=== PATIENT | male | born 1965 | race Caucasian/White ===

== ENCOUNTER 2024-07-03 11:55 | Outpatient (OUT) | payer OTHER, SELFPAY ==
--- NOTE | 2024-07-02 10:39 | V.VEINS.HP ---
Vital Signs 07/02/24 10:44 07/03/24 13:14 Height 6 ft 1 in Weight 135.171 kg BMI 39.3 BP Location Left Brachial BP Position Sitting BP Cuff Size Adult BP Source Manual Cuff Respiration 18 Pulse 64 Pulse Source Monitor Pulse Oximetry (%) 92 L Oxygen Delivery Method Room Air Varicose Veins Patient is a 58 year old male in this day as a referral from Dr. Denise at the wound clinic secondary to recurrent venous ulcers. Patient c/o numerous ulcerative areas to bilateral leg right > left leg. Patient as worn bilateral leg knee high compression stockings in the past and often resulted in new wound formation. Patient c/o bilateral leg edema for many years. Patient has not had varicose vein treatments in the past. Patient denies blood clot history as well. IGood MD personally performed the services described in this documentation, as scribed by Myron Mina RN in my presence and it is both accurate and complete. IMyron RN, am scribing for, and in the presence of, Dr. Good Robbins and in the presence of the patient. thigh: bilateral (right > left leg), knee: bilateral, calf: bilateral, ankle: bilateral and martinez: bilateral Reports heaviness, edema and leg edema History of lower extremity trauma: No Superficial thrombophlebitis: No Family history of varicose veins: no Has patient had previous lower extremity venous surgery: No Patient has previously received the following treatment(s) for lower extremity varicose veins: Reports none Does patient have a history of : not applicable Does patient intend to have future pregnancies: not applicable Has patient had lower extremity venous scan with relux testing: No Support hose used: Yes Problems walking or doing physical activity: Yes How does it affect you: often has to stop and rest with ambulation Do you walk much: No Do you stand much: No Review of Systems ROS Status of ROS 10 or more systems reviewed and unremarkable except as noted in history and below Cardiovascular Reports: edema Integumentary/Breast Reports: itching, redness, skin pain, skin tenderness, skin swelling, new lesion, changing lesion, non-healing lesion and changes in skin color Neurological Reports: numbness in extremities and weakness in extremities PFSH [facility] Medical History (Updated 07/03/24 @ 13:36 by Myron Mina) Hernia ?K46.9 - Unspecified abdominal hernia without obstruction or gangrene (ICD-10) Heart attack ?I21.9 - Acute myocardial infarction, unspecified (ICD-10) Bilateral leg edema ?R60.0 - Localized edema (ICD-10) Pain due to varicose veins of both lower extremities ?I83.813 - Varicose veins of bilateral lower extremities with pain (ICD-10) COPD (chronic obstructive pulmonary disease) ?J44.9 - Chronic obstructive pulmonary disease, unspecified (ICD-10) Advanced cardiac disease ?I51.9 - Heart disease, unspecified (ICD-10) CHF (congestive heart failure) ?I50.9 - Heart failure, unspecified (ICD-10) Ulcerated leg varices ?I83.009 - Varicose veins of unspecified lower extremity with ulcer of unspecified site (ICD-10) ?L97.909 - Non-pressure chronic ulcer of unspecified part of unspecified lower leg with unspecified severity (ICD-10) Neuropathy ?G62.9 - Polyneuropathy, unspecified (ICD-10) Diabetes ?E11.9 - Type 2 diabetes mellitus without complications (ICD-10) Surgical History (Updated 07/03/24 @ 13:36 by Myron Mina) H/O gastric sleeve ?Z90.3 - Acquired absence of stomach [part of] (ICD-10) H/O hernia repair ?Z98.890 - Other specified postprocedural states (ICD-10) ?Z87.19 - Personal history of other diseases of the digestive system (ICD-10) Family History (Updated 07/02/24 @ 10:43 by Myron Mina) Other Family history of cancer Heart disease Hypothyroid Social History (Updated 07/03/24 @ 13:38 by Myron Mina) Within the past year, how often did you have a drink containing alcohol: monthly or less Smoking status: Former smoker Non-prescribed substance use: denies use Meds Home Medications and Allergies Home Medications ?Medication ?Instructions ?Recorded ?Confirmed ?Type apixaban 5 mg tablet (Eliquis) 5 mg PO Q12H 07/03/24 07/03/24 History budesonide-formoterol HFA 80 1 inh inhalation BID 07/03/24 07/03/24 History mcg-4.5 mcg/actuation aerosol inhaler (Symbicort) dapagliflozin propanediol 10 mg 10 mg PO DAILY 07/03/24 07/03/24 History tablet (Farxiga) furosemide 20 mg tablet 20 mg PO DAILY 07/03/24 07/03/24 History glimepiride 4 mg tablet 4 mg PO BID 07/03/24 07/03/24 History metoprolol tartrate 25 mg tablet 25 mg PO Q12H 07/03/24 07/03/24 History ranolazine 1,000 mg 1,000 mg PO BID 07/03/24 07/03/24 History tablet,extended release,12 hr Allergies Allergy/AdvReac Type Severity Reaction Status Date / Time hydromorphone (From Dilaudid) Allergy Intermediate Difficulty Verified 07/03/24 15:09 Breathing Exam Narrative Exam Narrative: Multiple open wounds noted to right lower leg #1 right mid anterolateral lower [id number] #2 right anteromedial ankle [id number] #3 right distal lateral lower leg [id number] Good Willson MD personally performed the services described in this documentation, as scribed by Myron Mina RN in my presence and it is both accurate and complete. Myron Willson RN, am scribing for, and in the presence of, Dr. Good Robbins and in the presence of the patient. Constitutional Documenting provider has reviewed patient's vital signs: yes Common normals: oriented x3 Nutritional appearance: overweight Cardio Peripheral pulses: posterior tibial pulses present and dorsalis pedis pulses present Extremity Common normals: normal capillary refill General: calf tenderness and edema Right lower extremity: lower leg Right lower leg: inspection and palpation Left lower extremity: lower leg Left lower leg: inspection and palpation Neuro Common normals: oriented x3 Results Additional Findings Additional findings: Bilateral leg reflux u/s reveals moderate right GSV and mild left GSV along with bilateral SSV insufficiency with associated dilation, bilateral leg perforating veins, and lastly bilateral leg branch saphenous varicosities Good Willson MD personally performed the services described in this documentation, as scribed by Myron Mina RN in my presence and it is both accurate and complete. Myron Willson RN, am scribing for, and in the presence of, Dr. Good Robbins and in the presence of the patient. Assessment and Plan Assessment and Plan (1) Pain due to varicose veins of both lower extremities: Plan Continue use of bilateral leg knee high compression stockings, unless interferes with wounds. Continue rest and elevation of bilateral feet/legs to decrease edema. Patient to return for EVLT of right GSV IGood MD personally performed the services described in this documentation, as scribed by Myron Mina RN in my presence and it is both accurate and complete. Myron Willson RN, am scribing for, and in the presence of, Dr. Good Robbins and in the presence of the patient.
[2024-07-02 10:44] VITALS: BMI 39.3
--- NOTE | 2024-07-02 10:45 | P.DS_ITS ---
Discharge Plan Discharge Disposition: Home, Self-Care Outpatient Diagnostics: VC Endovenous Ablation 1VeinRT (Routine) Timeframe: 2 Months Facility: [facility] - Location: Vein Center Ordered By: Good Robbins Plan of Treatment: EVLT of right GSV Print Language: Ukrainian Discharge Date/Time: 07/03/24 15:42
--- NOTE | 2024-07-03 13:01 | VEIN_ITS ---
Patient Name: SILVIO CROWELL MR#: [id number] : 1965 Exam Date: 07/03/2024 Ordering Doctor: DR BALWINDER LYON M.D. RADIOLOGY REPORT PROCEDURE: VEIN CENTER COMPREHENSIVE CONSULTATION VEIN CENTER - OFFICE VISIT INITIAL COMPARISON: None. PROGRESS NOTES: 58-year-old male who presents with a 20 year history of lower extremity pain swelling and waxing and waning venous stasis ulcerations. The patient was 1st treated [address] Dr. Cooper in [place] 20 years ago for infected venous stasis ulceration with 6 weeks of IV antibiotics. The patient has had ongoing venous stasis ulcerations in the past 20 years. The patient is currently being seen for multiple right leg venous stasis ulcerations by the [facility]. The patient does not exercise and has a sedentary lifestyle secondary to his leg condition. The patient denies any signs and symptoms to suggest arterial ischemia. The patient describes a family history significant for cancer heart disease and hypothyroidism. Past medical history significant for abdominal hernia, heart attack, leg edema, varicose veins, COPD, cardiac disease, CHF, neuropathy and diabetes. Past surgical history significant for gastric sleeve with 100 pound weight loss in hernia repair. The patient drinks alcohol monthly. The patient discontinued smoking years ago. No illicit drug use See separate history and physical for medication list. No prior treatment for varicose or spider veins. The patient has intermittently worn compression stockings for years. After review of nurse notes, history and physical exam I discussed at length the pathophysiology of venous hypertension and possible treatments, therapies and strategies available. We discussed at length the importance of elevating the lower extremities above the level of the heart, increased physical activity and compression stocking use. We discussed intravenous laser ablation, micro foam chemical ablation and injection sclerotherapy at length. Risks benefits and alternatives were discussed with the patient and his . The patient's questions were answered. Ultrasound venous reflux study performed the same day was discussed at length with the patient. The report demonstrates moderate right great saphenous vein venous insufficiency mild left great and bilateral small saphenous vein venous insufficiency. Incompetent right leg perforating veins with associated wound . bilateral incompetent varicose veins. PVR demonstrates normal waveforms with bilateral borderline elevated CAMELIA suggesting calcified atherosclerosis PHYSICAL EXAM: The right leg demonstrates multiple skin ulcerations the 2 largest measuring 6 x 4 cm and 12 x 8 cm along the anterior and lateral right lower leg. Moderate diffuse below knee subcutaneous edema. Moderate varicose reticular and spider veins. Skin thickening and hemosiderin staining. The left leg demonstrates moderate below knee subcutaneous edema. Moderate varicose, reticular and spider veins. Skin thickening and hemosiderin staining. No active ulceration Both thighs, legs and feet were symmetrically warm to the touch. Good posterior tibial and dorsalis pedis pulses were present bilaterally. VEIN/VC Facility EST Comprehensive IMPRESSION: 1. Bilateral great saphenous and small saphenous vein venous insufficiency with dilatation and saphenofemoral/saphenopopliteal junction reflux 2. Bilateral lower extremity varicose veins 3. Moderate bilateral lower extremity subcutaneous edema with hemosiderin staining and multiple right leg ulceration 4. Diffuse calcific atherosclerosis suggested by PVR without definite flow significant arterial disease 5. CEAP: C6, Ep, Asp, Pr PLAN: 1. Endovenous laser ablation of the right great saphenous vein followed by right small saphenous vein followed by left great saphenous vein followed by left small saphenous vein followed by right perforating veins if necessary 2. Micro foam chemical ablation bilateral incompetent varicose veins 3. Long-term use of bilateral knee or thigh-high 20-30 mm compression stockings 4. Elevated legs and increased physical activity for symptomatic relief Nurse notes, history and physical were reviewed and confirmed, see attached forms. The nurse was present throughout the physical exam and consultation Dictated by: Balwinder Lyon MD on 07/03/2024 at 15:48 Approved by: Balwinder Lyon MD on 07/03/2024 at 15:55
--- NOTE | 2024-07-03 13:02 | VEIN_ITS ---
[facility] [place] [id number] Patient Name: SILVIO CROWELL MRN: [id number] date: 1965 Sex: M Assigned Patient Location: Current Patient Location: Accession/Order Number: [id number] Exam Date: 07/03/2024 13:01 Report Date: 07/03/2024 15:11 At the request of: BALWINDER LYON Procedure: VC SEGMENTAL PRESSURES EXAM: VC SEGMENTAL PRESSURES HISTORY: I73.9 COMPARISON: None. FINDINGS: Segmental pressures presented as follows (right, left) in mmHg. Brachial: 141, 153 Lower thigh: 190, 183 Calf: 179, 178 DPA: 202, 190 TOBACCO SPRAYER: 166, 197 1st Toe: 168, 167 CAMELIA: 1.32, 1.29 TBI: 1.1, 1.09 The ABIs are high The TBI's are Acceptable PVR waveforms: Right leg: Thigh: Normal Above knee: Normal Below knee: Normal Right ankle: Normal Left leg: Thigh: Normal Above knee: Normal Below knee: Normal Right ankle: Normal VEIN/VC SEGMENTAL PRESSURES IMPRESSION: ABIs are borderline high suggesting calcified atherosclerosis Electronically authenticated by: BALWINDER LYON Date: 07/03/2024 15:11
--- NOTE | 2024-07-03 13:02 | VEIN_ITS ---
Patient Name: SILVIO CROWELL MR#: [id number] : 1965 Exam Date: 07/03/2024 Ordering Doctor: DR GOOD ROBBINS M.D. RADIOLOGY REPORT PROCEDURE: VC EXT VENOUS REFLUX MAREK LMTD COMPARISON: None. INDICATIONS: I83.813 Bilateral painful varicose veins TECHNIQUE: Duplex imaging of the lower extremity to assess the deep and superficial venous system for the presence of deep or superficial venous incompetence and to document the location and severity of disease. The study includes evaluation of the great saphenous vein (GSV), anterior accessory saphenous vein (AASV) and small saphenous vein (SSV). Patient scanned in reverse Trendelenburg and standing. FINDINGS: RIGHT LOWER EXTREMITY: Saphenofemoral Junction Reflux: Yes 8.5mm 2.5 sec GSV: Diam (mm) Reflux/ Time (sec) Proximal Thigh 6.7 Yes 2.8 Mid Thigh 6.0 Yes 1.4 Distal Thigh 2.4 No Prox Calf 2.1 Yes 1.4 Mid Calf 1.4 No Saphenopopliteal Junction Reflux: 6.2mm Yes 0.9 SSV: Proximal Calf 4.9 No Mid Calf 4.8 Yes 1.5 AASV: Proximal Thigh 2.9 No Mid Thigh No Distal Thigh Thrombi: No acute or chronic thrombus visualized Compressibility: Normal Flow: Normal Preforator: Dist/med calf 4.1mm with 1.5s reflux. Mid/med calf 4.5mm with 1.7s reflux. Mid/lat calf near wound 4.5mm with 1.2s reflux. Tech Note: Incompetent GSV. Patent varicose vein mid/med calf 4.0mm with 1.6s reflux. Patent varicose vein medial knee 4.7mm with 0.7s reflux. Patent varicose vein dist/med thigh 4.8mm with 1.1s reflux. LEFT LOWER EXTREMITY: Saphenofemoral Junction Reflux: Yes 5.6 mm 0.9 sec GSV: Diam (mm) Reflux/Time (sec) Proximal Thigh 6.1 Yes 0.8 Mid Thigh 3.4 No Distal Thigh 3.1 No Prox Calf 2.7 No Mid Calf 2.0 No Saphenopopliteal Junction Relux: 5.9 mm Yes 1.2 SSV: Proximal Calf 5.5 Yes 0.8 Mid Calf 3.2 No AASV: Not present Thrombi: No acute or chronic thrombus visualized Compressibility: Normal Flow: Normal Warehouse Supervisor: Dist/med calf 2.9mm with 0s reflux. Patent varicose vein 2.2mm with 1.3s reflux. Tech Note: Incompetent GSV and SSV. Patent varicose vein dist/med thigh 3.9mm with 1.2s reflux. Patent varicose vein medial knee 5.3mm with 0.7s reflux. CONCLUSION: 1. Moderate right great saphenous vein insufficiency with dilation and saphenofemoral junction reflux 2. Mild left great and bilateral small saphenous vein reflux 3. Bilateral incompetent varicose veins Dictated by: Good Robbins MD on 07/03/2024 at 15:02 Approved by: Good Robbins MD on 07/03/2024 at 15:07
[2024-07-03 13:14] VITALS: PULSE 64; O2SAT 92
== END 2024-07-03 15:42 | disposition home or self-care (01) ==
PROVIDERS: Visit Provider Radiology Diagnostic Radiology
DX: I83.813 Varicose veins of bilateral lower extremities with pain (principal); I73.9 Peripheral vascular disease, unspecified
CPT/HCPCS: 93923; 93970; G0463

== ENCOUNTER 2024-07-17 12:51 | Outpatient (OUT) | payer OTHER, SELFPAY ==
--- NOTE | 2024-07-16 14:04 | V.VEINS.HP ---
Vital Signs 07/17/24 13:09 BP 147/77 H BP Location Left Brachial BP Position Sitting BP Cuff Size Large Adult BP Source Automatic Cuff Respiration 20 Pulse 68 Pulse Source Monitor Pulse Oximetry (%) 95 Oxygen Delivery Method Room Air Comment The patient's blood pressure is elevated. Varicose Veins Patient in this day for EVLT of right GSV. Jone Willson MD personally performed the services described in this documentation, as scribed by Myron Mina RN in my presence and it is both accurate and complete. Myron Willson RN, am scribing for, and in the presence of, Dr. Jone Vallejo and in the presence of the patient. thigh: bilateral (right > left leg), knee: bilateral, calf: bilateral, ankle: bilateral and martinez: bilateral Reports heaviness, edema and leg edema History of lower extremity trauma: No Superficial thrombophlebitis: No Family history of varicose veins: no Has patient had previous lower extremity venous surgery: No Patient has previously received the following treatment(s) for lower extremity varicose veins: Reports none Does patient have a history of : not applicable Does patient intend to have future pregnancies: not applicable Has patient had lower extremity venous scan with relux testing: No Support hose used: Yes Problems walking or doing physical activity: Yes How does it affect you: often has to stop and rest with ambulation Do you walk much: No Do you stand much: No Review of Systems ROS Narrative Jone Willson MD personally performed the services described in this documentation, as scribed by Myron Mina RN in my presence and it is both accurate and complete. Myron Willson RN, am scribing for, and in the presence of, Dr. Jone Vallejo and in the presence of the patient. Status of ROS 10 or more systems reviewed and unremarkable except as noted in history and below Cardiovascular Reports: edema Integumentary/Breast Reports: itching, redness, skin pain, skin tenderness, skin swelling, new lesion, changing lesion, non-healing lesion and changes in skin color Neurological Reports: numbness in extremities and weakness in extremities [facility] Medical History (Updated 07/03/24 @ 13:36 by Myron Mina) Hernia ?K46.9 - Unspecified abdominal hernia without obstruction or gangrene (ICD-10) Heart attack ?I21.9 - Acute myocardial infarction, unspecified (ICD-10) Bilateral leg edema ?R60.0 - Localized edema (ICD-10) Pain due to varicose veins of both lower extremities ?I83.813 - Varicose veins of bilateral lower extremities with pain (ICD-10) COPD (chronic obstructive pulmonary disease) ?J44.9 - Chronic obstructive pulmonary disease, unspecified (ICD-10) Advanced cardiac disease ?I51.9 - Heart disease, unspecified (ICD-10) CHF (congestive heart failure) ?I50.9 - Heart failure, unspecified (ICD-10) Ulcerated leg varices ?I83.009 - Varicose veins of unspecified lower extremity with ulcer of unspecified site (ICD-10) ?L97.909 - Non-pressure chronic ulcer of unspecified part of unspecified lower leg with unspecified severity (ICD-10) Neuropathy ?G62.9 - Polyneuropathy, unspecified (ICD-10) Diabetes ?E11.9 - Type 2 diabetes mellitus without complications (ICD-10) Surgical History (Updated 07/17/24 @ 13:58 by Myron Mina) Status post laser ablation of incompetent vein ?Z98.890 - Other specified postprocedural states (ICD-10) H/O gastric sleeve ?Z90.3 - Acquired absence of stomach [part of] (ICD-10) H/O hernia repair ?Z98.890 - Other specified postprocedural states (ICD-10) ?Z87.19 - Personal history of other diseases of the digestive system (ICD-10) Family History (Updated 07/02/24 @ 10:43 by Myron Mina) Other Family history of cancer Heart disease Hypothyroid Social History (Updated 07/03/24 @ 13:38 by Myron Mina) Within the past year, how often did you have a drink containing alcohol: monthly or less Smoking status: Former smoker Non-prescribed substance use: denies use Meds Home Medications and Allergies Home Medications ?Medication ?Instructions ?Recorded ?Confirmed ?Type apixaban 5 mg tablet (Eliquis) 5 mg PO Q12H 07/03/24 07/03/24 History budesonide-formoterol HFA 80 1 inh inhalation BID 07/03/24 07/03/24 History mcg-4.5 mcg/actuation aerosol inhaler (Symbicort) dapagliflozin propanediol 10 mg 10 mg PO DAILY 07/03/24 07/03/24 History tablet (Farxiga) furosemide 20 mg tablet 20 mg PO DAILY 07/03/24 07/03/24 History glimepiride 4 mg tablet 4 mg PO BID 07/03/24 07/03/24 History metoprolol tartrate 25 mg tablet 25 mg PO Q12H 07/03/24 07/03/24 History ranolazine 1,000 mg 1,000 mg PO BID 07/03/24 07/03/24 History tablet,extended release,12 hr Allergies Allergy/AdvReac Type Severity Reaction Status Date / Time hydromorphone (From Dilaudid) Allergy Intermediate Difficulty Verified 07/03/24 15:09 Breathing Exam Narrative Exam Narrative: IJone MD personally performed the services described in this documentation, as scribed by Myron Mina RN in my presence and it is both accurate and complete. IMyron RN, am scribing for, and in the presence of, Dr. Jone Vallejo and in the presence of the patient. Constitutional Documenting provider has reviewed patient's vital signs: yes Common normals: oriented x3 Nutritional appearance: overweight Cardio Peripheral pulses: posterior tibial pulses present and dorsalis pedis pulses present Extremity Common normals: normal capillary refill General: calf tenderness and edema Right lower extremity: lower leg Right lower leg: inspection and palpation Left lower extremity: lower leg Left lower leg: inspection and palpation Neuro Common normals: oriented x3 Results Additional Findings Additional findings: Plan of care: Risks and benefits of the procedure were discussed at length and informed written consent was obtained.? Time-out completed for verification of correct patient, procedure and site.? Staff present during time-out: Myron Mina RN,? Good Robbins MD, Samira Mcguire RDMS,RVT. Time Out Time Patient prepped and procedure performed in usual sterile fashion. Risk of injury related to use of Diode laser and/or laser devices? __CR___ ? Serial number of laser used :? [id number] Control panel self test performed, electrical cords in good condition, floor is dry, basin of water available, fire extinguisher in close proximity_CR__ Polycarbonate goggles available and Laser warning signs outside of doors___CR__ Eye protection provided to patient and staff in room_CR___ Use of laser retardant drapes and dull blackened instruments as directed__CR___ Use of nonflammable prep solutions and use of saline soaked sponges to protect tissues as indicated _CR___ Length cm Laser operated by _Dr. Vallejo Physician verbal confirmation laser locked in place__CR__ Laser start time (date and time) _07/16/2024@ Laser stop time(date and time) __07/16/2024@ Panda _8.0___ Average laser use Joules Average laser use seconds Pulse continuous ___CR_? Pulse intermittent ___ Amount of Tumescent used Evaluated patient for signs and symptoms of electrical injury __CR___ ? Skin clear at insertion site __CR___ Patient tolerated procedure well.? Left leg Coban dressing applied to access site.? Applied Left thigh high leg compression stocking. Will return on // for Left leg limited venous ultrasound and exam. Jone Willson MD personally performed the services described in this documentation, as scribed by Myron Mina RN in my presence and it is both accurate and complete. Myron Willson RN, am scribing for, and in the presence of, Dr. Jone Vallejo and in the presence of the patient. Assessment and Plan Assessment and Plan (1) Pain due to varicose veins of both lower extremities: Plan f/u evaluation with physician along with right leg limited u/s Jone Willson MD personally performed the services described in this documentation, as scribed by Myron Mina RN in my presence and it is both accurate and complete. Myron Willson RN, am scribing for, and in the presence of, Dr. Jone Vallejo and in the presence of the patient. Procedures Procedure Instructions Procedures Plan of care: Risks and benefits of the procedure were discussed at length and informed written consent was obtained.? Time-out completed for verification of correct patient, procedure and site.? Staff present during time-out: Myron Mina RN,? [facility] MD, [facility], [facility]. Time Out Time___1343____ Patient prepped and procedure performed in usual sterile fashion. Risk of injury related to use of Diode laser and/or laser devices__CR___ ? Serial number of laser used :? [id number] Control panel self test performed, electrical cords in good condition, floor is dry, basin of water available, fire extinguisher in close proximity_CR__ Polycarbonate goggles available and Laser warning signs outside of doors___CR__ Eye protection provided to patient and staff in room_CR___ Use of laser retardant drapes and dull blackened instruments as directed__CR___ Use of nonflammable prep solutions and use of saline soaked sponges to protect tissues as indicated _CR___ Length __47 cm Laser operated by __Dr. Vallejo Physician verbal confirmation laser locked in place__CR__ Laser start time (date and time) __07/17/2024@__1356____ Laser stop time(date and time) __07/17/2024@__1401 Panda _8.0___ Average laser use ___2357____Joules Average laser use____295____seconds Pulse continuous ___CR_? Pulse intermittent ___ Amount of Tumescent used __200cc____ Evaluated patient for signs and symptoms of electrical injury __CR___ ? Skin clear at insertion site __CR___ Patient tolerated procedure well.? Right leg Coban dressing applied to access site.? Applied right thigh high leg compression stocking. Will return on 06/23/2024 for right leg limited venous ultrasound and exam. I, Jone Vallejo MD personally performed the services described in this documentation, as scribed by Myron Mina RN in my presence and it is both accurate and complete. I, Myron Mina RN, am scribing for, and in the presence of, Dr. Jone Vallejo and in the presence of the patient.
--- NOTE | 2024-07-16 14:14 | W.VEIN ---
Discharge Plan Discharge Disposition: Home, Self-Care Outpatient Diagnostics: VC Facility EST LMTD (Routine) Timeframe: 2 Weeks Facility: [facility] - Location: Vein Center Ordered By: Good Robbins VC EXT Venous RT LMTD (Routine) Timeframe: 2 Weeks Facility: [facility] - Location: Vein Center Ordered By: Good Robbins Follow Up Appointments: 07/24/2024 Plan of Treatment: f/u evaluation with physician along with right leg limited u/s Patient Instructions: Endovenous Ablation (DC) Print Language: [place] Discharge Date/Time: 07/17/24 13:45
[2024-07-17] MEDS: LIDOCAINE HCL 1% 100 MG/10 ML MDV INJ (12:52)
[2024-07-17] MEDS: 0.9 % SODIUM CHLORIDE 500 ML, LIDOCAINE HCL 20 ML, SODIUM BICARBONATE 10 MEQ INJ (12:53)
--- NOTE | 2024-07-17 13:01 | VEIN_ITS ---
[address] [address] Patient Name: SILVIO CROWELL MRN: [id number] date: 1965 Sex: M Assigned Patient Location: Current Patient Location: Accession/Order Number: [id number] Exam Date: 07/17/2024 13:07 Report Date: 07/17/2024 14:35 At the request of: BALWINDER LYON Procedure: VC Endovenous Ablation 1VeinRT EXAMINATION: VC Endovenous Ablation 1VeinRT HISTORY: I83.813 - Varicose veins of bilateral lower extremities w... The risks and benefits of the procedure had been previously discussed, and were rediscussed at length. Informed written consent was obtained. Myron Mina RN and Samira Mcguire RDMS, RVT assisted. Time out procedure was performed. The right lower extremity was prepared and draped in the usual sterile fashion to allow knee flexion in the sterile field. Duplex ultrasound probe was draped in a sterile cover, sterile transmission gel was used. Venous mapping was performed with the areas of dilation and large tributaries marked. The total length was 47 cm from the entry mid calf to 3 cm below the Saphenofemoral junction. The diameter of the right great saphenous vein ranged from 6.7 mm. A 30 gauge needle and 1% buffered lidocaine was used to anesthetize the entry site. A 4 mm incision was made with a scalpel and the saphenous vein was entered percutaneously under direct ultrasound guidance with a micropuncture set, a single stick was successful in gaining access. A micro-guide wire was inserted and the needle removed. A micro-set including a dilator was inserted over the microwire and the needle and dilator were removed. A guide wire was inserted through the micro-set and guided through the saphenous vein to the saphenofemoral junction. The dilator was removed and an introducer sheath was inserted over the wire until the end of the sheath entered the saphenofemoral junction. The dilator and wire were removed and the 600 micron fiber was introduced and placed and positioned so that it extended beyond the sheath and was 3 cm distal to the saphenofemoral or saphenopopliteal junction. Final position of the fiber was determined by ultrasound guidance and duplex imaging. Tumescent anesthetic was delivered by ultrasound guidance. 200 cc of fluid was delivered along the entire course of the saphenous vein. The solution consisted of 1000 cc of normal saline with 40 mL of 1% lidocaine and 20 mL of sodium bicarbonate. A final positioning check was made. The energy source was turned on by means of the foot pedal and the fiber and sheath were withdrawn. The total number of Joules delivered was 2357. The laser was active for 295 seconds under continuous pulse, average laser use of 8 J. Laser start time: 1:56 PM Laser stop time: 2:01 PM Date: 07/17/2024. A duplex ultrasound revealed compressibility and flow at the saphenofemoral junction immediately after the procedure. Hemostasis at the access site was achieved. The skin incision of the saphenous vein was closed with a 4 x 4. A compression stocking was applied. Postop instructions were given. A follow up appointment was recommended and scheduled. The patient tolerated the procedure well. Electronically authenticated by: RUPA BINGHAM Date: 07/17/2024 14:35
[2024-07-17 13:09] VITALS: BP 147/77; PULSE 68; O2SAT 95
--- OUTSIDE RECORDS SUMMARY | 2024-07-17 13:10 | XMS_ITS | CCD ---
Author Organization [facility] Care Team Providers Care Art Sales Consultant Name Role Phone RORY ZEPEDA Unavailable Unavailable BALWINDER MILLER Unavailable Unavailable GRETA GONZALEZ Referring Unavailab le BALWINDER MILLER Primary Care Unavailable Balwinder Miller Primary Care Provider Dominick Chavira Attending Unavailable Dominick Chavira Admitting Unavailable Balwinder Miller Primary Care Unavailable Dolce, Morgan R Admitting Unavailable Dolce, Morgan R Attending Unavailable Balwinder Miller Primary Care Unavailable Balwinder Miller Primary Care Unavailable Balwinder Miller Attending Unavailable Dominick Chavira Attending Unavailable Dominick Chavira Admitting Unavailable PaulBalwinder cowan Primary Care Unavailable Dolce, Morgan R Admitting Unavailable Dolce, Morgan R Attending Unavailable Balwinder Miller Primary Care Unavailable Dolce, Morgan R Admitting Unavailable Dolce, Morgan R Attending Unavailable Balwinder Miller Primary Care Unavailable Dominick Chavira Attending Unavailable Dominick Chavira Admitting Unavailable Balwinder Miller Primary Care Unavailable GonMaria L lomeli Attending Unavailable Maria L Hand Admitting Unavailable PaulBalwinder cowan Primary Care Unavailable Balwinder Miller Attending Unavailable Balwinder Miller Primary Care Unavailable Balwinder Miller Attending Unavailable Balwinder Miller Primary Care Unavailable Balwinder Miller Attending Unavailable Balwinder Miller Primary Care Unavailable Balwinder Miller Attending Unavailable Balwinder Miller Primary Care Unavailable Balwinder Miller Admitting Unavailable PaulBalwinder cowan Attending Unavailable Balwinder Miller Primary Care Unavailable Balwinder Miller Primary Care Unavailable Kimberly Jones Attending Unavailable Kimberly Jones Admitting Unavailable Balwinder Miller Primary Care Unavailable Ian Lynn Attending UnavailIan Ignacio Admitting Unavaila Morgan Cooper Attending Unavailable Morgan Denise Admitting Unavailable Balwinder Miller Primary Care Unavailable Morgan Denise Attending Unavailable Morgan Denise Admitting Unavailable Balwinder Miller Primary Care Unavailable Allergies Allergy Classification Reported Allergen(s) Allergy Type Date of Onset Reaction(s) Facility (2 sources) NSAIDs Propensity to adverse reactions to drug 9 [employer] Phone: (1 source) HYDROmorphone; Translations: [Dilaudid] Drug Allergy [facility] Repository Medications Current Medications Medication Drug Class(es) Dates Sig (Normalized) Sig (Original) 200 actuat albuterol 0.09 mg/actuat metered dose inhaler (2 sources) beta2-Adrenergic Agonist take 2 puff(s) by inhalation every four hours as needed for wheezing albuterol sulfate HFA 108 (90 Base) MCG/ACT inhaler Inhale 2 puffs into the lungs every 4 hours as needed for Wheezing 0 Active amiodarone hydrochloride 200 mg oral tablet (2 sources) Antiarrhythmic take 1 tablet by mouth once daily amiodarone (CORDARONE) 200 MG tablet Take 200 mg by mouth daily 0 Active atorvastatin 40 mg oral tablet (2 sources) HMG-CoA Reductase Inhibitor Start: 12-27-2017 take 1 tablet by mouth once daily atorvastatin (LIPITOR) 40 MG tablet Take 1 tablet by mouth daily 30 tablet 3 12/27/2017 Active 60 actuat budesonide 0.08 mg/actuat / formoterol fumarate 0.0045 mg/actuat metered dose inhaler (2 sources) Corticosteroid, beta2-Adrenergic Agonist Start: 12-19-2017 take 2 puff(s) by inhalation twice daily budesonide-formote rol (SYMBICORT) 80-4.5 MCG/ACT AERO Indications: Chronic obstructive pulmonary disease, unspecified COPD type (HCC) Inhale 2 puffs into the lungs 2 times daily 1 Inhaler 3 12/19/2017 Active clopidogrel 75 mg oral tablet (2 sources) P2Y12 Platelet Inhibitor Start: 12-28-2017 take 1 tablet by mouth once daily clopidogrel (PLAVIX) 75 MG tablet Take 1 tablet by mouth daily 30 tablet 3 12/28/2017 Active Docusate Sodium (COLACE PO) (2 sources) Docusate Sodium (COLACE PO) Take 100 mg by mouth 0 Active furosemide 20 mg oral tablet (2 sources) Loop Diuretic take 1 tablet by mouth once daily furosemide (LASIX) 20 MG tablet Take 20 mg by mouth daily 0 Active glucose monitoring kit (FREESTYLE) monitoring kit (2 sources) Start: 11-22-2017 glucose monitoring kit (FREESTYLE) monitoring kit Indications: Type 2 diabetes mellitus without complication, unspecified bow repairer custom insulin use status 1 kit by Does not apply route daily as needed (check glucose before meals three times a day) 1 kit 0 11/22/2017 Active metFORMIN hydrochloride 500 mg oral tablet (2 sources) Biguanide take 500 mg by mouth twice daily METFORMIN HCL PO Take 500 mg by mouth 2 times daily 0 Active metoprolol tartrate 25 mg oral tablet (2 sources) beta-Adrenergic Kwaku metoprolol tartrate (LOPRESSOR) 25 MG tablet Take 12.5 mg by mouth 2 times daily 0 Active midodrine hydrochloride 5 mg oral tablet (2 sources) alpha-Adrenergic Agonist take 1 tablet by mouth three times daily midodrine (PROAMATINE) 5 MG tablet Take 5 mg by mouth 3 times daily 0 Active nitroglycerin 0.4 mg sublingual tablet (2 sources) Nitrate Vasodilator Start: 12-27-2017 nitroGLYCERIN (NITROSTAT) 0.[address] 1 tablet under the tongue every 5 minutes as needed for Chest pain up to max of 3 total doses. If no relief after 1 dose, call 911. 25 tablet 3 12/27/2017 Active NONFORMULARY (2 sources) NONFORMULARY B 1 2 shot 2 weeks ago today 09-20-18 0 Active Pediatric Sqjfcnkq-Oklpcubr-J (FLINTSTONES COMPLETE PO) (2 sources) Pediatric Multivit-Minerals- C (FLINTSTONES COMPLETE PO) Take by mouth 0 Active [place]-Aom-Qh-FA ( VITAMINS PO) (2 sources) take 1 tablet by mouth once daily Jemhsgkn-Ctm-Yg-FA ( VITAMINS PO) Take 1 tablet by mouth daily 0 Active rivaroxaban 20 mg oral tablet (2 sources) Factor Xa Inhibitor Start: 11-21-2017 take 1 tablet by mouth once daily rivaroxaban (XARELTO) 20 MG TABS tablet Take 1 tablet by mouth daily 30 tablet 0 11/21/2017 Active 7 actuat umeclidinium 0.0625 mg/actuat dry powder inhaler (2 sources) Anticholinergic Start: 12-20-2017 take 1 dose by inhalation once daily Umeclidinium [place] (INCRUSE ELLIPTA) 62.5 MCG/INH AEPB Indications: Chronic obstructive pulmonary disease, unspecified COPD type (HCC) Inhale 1 Inhaler into the lungs daily 1 each 3 12/20/2017 Active Completed/Discontinued Medications Medication Drug Class(es) Dates Sig (Normalized) Sig (Original) gadoteridol (PROHANCE) injection 20 mL (1 source) Start: 11-21-2020 End: 11-21-2020 gadoteridol (PROHANCE) injection 20 mL Problems Active Problems Problem Classification Problem Date Documented Date Episodic/Chronic Acute and unspecified renal failure (2 sources) Acute injury of kidney; Translations: [BRYCE (acute kidney injury)] Onset: 11-13-2017 11-13-2017 Cardiac dysrhythmias (1 source) Chronic atrial fibrillation; Translations: [Chronic atrial fibrillation] Onset: 04-15-2018 Chronic Chronic obstructive pulmonary disease and bronchiectasis (2 sources) Chronic obstructive lung disease; Translations: [COPD (chronic obstructive pulmonary disease)] Onset: 11-13-2017 11-13-2017 Chronic Conduction disorders (4 sources) H/O: cardiac pacemaker in situ; Translations: [S/P placement of cardiac pacemaker] Onset: 01-18-2019 01-18-2019 Chronic Coronary atherosclerosis and other heart disease (1 source) Atherosclerotic heart disease of [place] coronary artery without angina pectoris; Translations: [Atherosclerotic heart disease of [place] coronary artery without angina pectoris] Onset: 04-15-2018 Chronic Diabetes mellitus without complication (2 sources) Type 2 diabetes mellitus; Translations: [Type 2 diabetes mellitus] Onset: 11-13-2017 11-13-2017 Chronic Nutritional deficiencies (2 sources) Vitamin D deficiency; Translations: [Vitamin D deficiency] Onset: 11-14-2017 11-14-2017 Chronic Other nervous system disorders (1 source) Tremor; Translations: [Tremor] Episodic Other nutritional; endocrine; and metabolic disorders (4 sources) Morbid obesity; Translations: [Morbid obesity due to excess calories] Onset: 11-14-2017 11-19-2017 Chronic Residual codes; unclassified (2 sources) Obstructive sleep apnea syndrome; Translations: [HAFSA (obstructive sleep apnea)] 11-16-2017 Chronic Respiratory failure; insufficiency; arrest (adult) (4 sources) Acute on chronic hypercapnic respiratory failure; Translations: [Acute on chronic hypoxemic and hypercapnic respiratory failure] Onset: 11-14-2017 11-19-2017 Past or Other Problems Problem Classification Problem Date Documented Da te Episodic/Chronic Coronary atherosclerosis and other heart disease (2 sources) History of placement of stent for coronary artery disease; Translations: [S/P drug eluting coronary stent placement] Onset: 12-26-2017 12-26-2017 Episodic Influenza (2 sources) Influenza due to Influenza virus, type B; Translations: [Influenza B] Onset: 11-13-2017 Resolved: 11-19-2017 11-19-2017 Episodic Other endocrine disorders (2 sources) Hypoglycemia; Translations: [Hypoglycemia] Onset: 11-12-2017 Resolved: 11-14-2017 11-14-2017 Chronic Other hematologic conditions (2 sources) Macrocytosis; Translations: [Macrocytosis] Onset: 11-13-2017 11-13-2017 Episodic Results Test Name Value Interpretation Reference Range Facility Wound Care Noteon 07-16-2024 Wound Care Note [id number]#1. [id number] [facility] Coding Summaryon 07-12-2024 [facility] UxbkueqsDDi2vVu+PGhlY WQ+NU0FPDTbI77vnMMfnB 9rP6MYDEkIRwgoLWKAIXk JFgKzqcMfSG1zgTWmFWBd IC8+RK8aXAVaHsdrgLKds 5N2xDU9R63hzt0uVRkbwJ U8BMImNnWwgfgwu4gwjTk 6IDcuNmluOyBt TVRmgR89RFX4bC36Rh94j LZptTOsn1aycSv5GbQfWB JgCOL4cWtmRPgra0VqJQZ iH74wmWArw4Q2 XABohRxutTXaFuXdiKZ2r D4mNFgzjzupb2boddylXc a1td60tXGov4W8gPG2N4H xwfE0MVWdeWUa SxuhqJJKhS6txhnjx1vsh pngPsPkKKFiDUc0YHk9CA QiwEudCgKpLL62FFY3DMD whkCrD8RbFRGt tSukSlO7l6L5Nw8OG7SML sfnI5OKCOFHDFrpnQB+PC 03mm12J0TuYutyDzk6ZXG nCKB2dLU0oD5d FFOgVBjzj9N3zWR4S9Ied dQumm3vd0wiZRQrYSacX1 9cpHAfo0P0EGDkxNB8NPA tsWxmCdTxqM54 Oyc+LIShrEhbu4SeHirbh 0sdv0kktCx4PdynHTKcyf JoaEeeCOB2d2ShIv1bUDT yrJL5nKU9iV4n MsYxIsH1YUsqB362EyTai WBvZxyaT73tA4TisCN+PH RcLsc2LOGzpMueJR6nK9A hZGRpbmctbGVm lWaeIQ3dVXYjlefyKBEsy S5fEOTdG4r9GbHaMuN9YH ziU8CbBUHbasjvMr62jM9 sDpBgIjH2RNqv H0ItinP0HWWkuMVcHHnkG FN6Z16nz9M9EDPzZCFiDB W7uHB6xK5ggVtblhivgUI mdDsgdmVydGlj HGfxEZpbB464SHJjySxdT kNvZGluZyBEYXRlOiAgMT AvMjQvMjAyNDwvdGQ+PHR tLDT8vXseNGQb dFUhVLgoGh1oxRpewHnyV E9eUKPcwmpiPIUgzK8gWG OicNQifFgyMC9nZTKjclx ve877KuNbZJM9 CIKecKGzT2BqhB2zWrApT FPdLJBxB6AqcWKkANtoN6 92TKavNuN9IGLwwaHdZ5H sLWFsaWduOiB0 w4B3Wx0Oe5BgkktiH0Tbw AXcPzVhZxpfNEa0L5PtIh wvdHI+SY62HQOoAY90WJj 9VPT9qXmtXZks GGTrF8LgnJ1hXeXyRIMwO GRkOyc+PHRhYmxlIHdpZH RoPScxMDAlJyBzdHlsZT0 tGu8eVUUoDHXz uYmzgQTwRcMdq0fzSSEeF GpyKB5rvXduA0XfjZC7KW Ffz5k0Tl58R24xZ9MxbGH +AIUriLD8oGF4 kD5aWoTrUyF6XWvzU862C fFibTDmQomay2plv6svpH r4WeI0YGNudtFqgQtvQLZ 5q8MgUt33C80i IHdpZHRoPSIxNSUiIHZhb Nvjfa9nqV5uVn6+PGNvbC Q2uUD9bH8pXfFrYrW5VJy xW414FpQyhWIn Qwfsw0oes5ytxWf8QdHuC ISjzyFpdDfzTQX7l9LlRu 09T2YqlAtkc8SeRga3ap7 0cYYrk3K6sTX8 T2BdTADkvtjulDAuqWmqF T8xIQEqfqulVJMycR8gIN YnE1z6SmPrFkI6VGufW4N tlhM2TUShnBIa QPWbiTKGqY4ehjdrq8qkg ffeEpRxHDHtJFy7YOm7JO XxiAszJwDvBMI4PoQ3ARC 5yXNdbA1biIxo rbumeI2aSol+QCR3bLNgr ZDPEA6vLyebaYP+PHRkIH S6fEjyRJdqLNLgaB4gDJR vB9t0TsWgEcB0 XKjsK5CjfuZ9EMMrsQHmX NNkgMETkQ8tfptuh8gqfe zpIyGnWLLyXSg0QYu5KGN saWduOiBsZWZ0 XpU7SIU6iGVtsX0kuYkqw ozhaB7dAto+QmlydGggRG F3AHb4U1VfPcn2NIQhaMq gVC5jgIDsKWlo Iz5coAtwaHpmGP3uQUXta xvee672VlCtl6ebBFKzsN NmWCleYFL7X11sp6X9VBF eVROcVGT7dLS4 jE1iiEbnznatvQTapAfeu zDatCacVDlyEOnlZ036XB FccHweVcEhDIu9W2KoOfh 9OPMxqHhwLG5n dXFhHQfpBs6hvZmwlOmaU D0qVSQuwpfaq624GbRbh2 urONBbuRSkWBopVCZ2K17 vy1T0OOZgNVKg QWV6oST7eC9kfJgnsejec GVmdDsgdmVydGljYWwtYW bfJ780HNIfuZfhFlJwjGb 3W9IkFnj7BPVn fIohGE3rhFLaGAqbPf0sx RhgoNjqJI6qYYVdktlld5 63JkOvh1asMUThvSRtHWi aKNF3O89ge1M2 RZOeAKTnPTX3kJK6yI3uj GlnbjogbGVmdDsgdmVydG nhKCklXJwtM723EZEpfNz nPlBhdGllbnQg GJhbWLq5M1IvGwvddLT+P D44UHSoTI27eKBknZJeu4 zjwHi7QqTyNCMwGNW5vFq gDUsgm4BbTQEo S62ttBMci1A8DBRjhSxgh IAvDgKbtJQ7kQ3nIYuqbu dfs9cqsmitGnwwr2htcw9 7yE40Y55aFHcd ZHRoPSIzMCUiIHZhbGlnb b9ryM2mPi8+ZWOcjQC8pI L5uM3bQRRbYdV4TXxgB17 9InRvcCIvPjxj d4jet0kcvSg7PuG7QXLnl rPzfDidYKT5r1MfEj87D7 9sIHdpZHRoPSIyMCUiIHZ feFjjze4rdG8i Ii8+GWIwfOA6aTN9lQ5jY vBfSiO9QWisZ989IeArcW VwSijmX47fC0OrdJR+PHR aOig1UOTkgCpf HU8bpMMnXKpfXl1uPLC8L wDxBdZgINcoQ6YtZPVvjq welrcvxAQ9TYAmDYPzlU3 4Ht3zzKimSLKi kNDFsU0fbwegc0rsknqwK pFmUPOfWGz8VQj5SQMreM rmVvHgPHJ1AxO1GHF5sIJ beH2riZlocezq nU5hA1WqWTYqeptiVk42j G8yNmTrJjF3XWvmOcp+U0 CZXHRTLrmgSUDMZ9lmPRy VZN20W5YkLuv6 QAAhwXtuFA9coIHjRZhkS n9wzModvJplST9zDDOwhg udUTVsrG4aZPJttQAckKs rOT1nVJUcqxxc n338QqWkHGV9ZXYcrPCwY 9HllI8iVuNsSFGrOZQtT3 LhcXAkMBhfP562EZzqJcI 0RVUcfzMiP0Kj EKAroIwyDeZ4a0W8Lv4xY s4lKT8rVGR6DM11NO17oX Hdv2H9gSH9B9AgGSJvwvf bernhvVD5WAWa BGWkdK37zANxGQknLh1lj 8F3s745EPLoLQCbgP11Ag 5vpUbdFSBziNXNwU2odnz ma7qrjmfsOgPu QGTdELn1KKu4YCXcwYfiW kVyELS1JwO4HAA0tGWtaX 2roXcogrdqsO3aRhq+NTk tSAInxwS8C4Kq Apj3ZGExhYieRD1wgAMhV IahUq5fyQhfoCbxKL9uHN BgylihSHYzhP1gXCNzeVI vsOoyHO2gSWZr ghgzv610VfRyGMN9RUQxi HBhR0XdsT7rXzBsEWElWM GiP7ZbaWNkQJrdW293SEe jNpC6YIFcpvAh D5SqEHKhxTilTkP2i4R4D m0QVYpWBT60UX81tCLqv6 P5yOB2Z6YzPANqmpipvyz blDI2YUNsEYOe vQ34aHLgFHerFz3jz7Y4c 347VVHzQLInhQ39Gh7tfA wnNMOyrVMViP7vtnrvn9x vcjogIzAwMDAw LHt3DTl1GUGwhQfzBnYuR TR0YoW9FSU7rHNxaL2aqK qhpezxhY9eXea+L5H5P0C kPjwvdHI+PC90 LMEpVX11nIHyjRBwr0zbb Zg0NnReBFZiZWH3eTobJB uhr8SiVUDmV10ycLFlt3N 6IGNvbGxhcHNl BiPqsSV7jN9mLAfchluxo 4zoeuglLwnos0gvid57xH 03Q17lXMlbDLSkITRxSSG lPLKtlZqgrg1d bX0vVo2+IKFqtHA3qXX2h W4jXiUiYsH1ROlcI018Tm KyvGItJxspt5vup7chbDa 9IjIwJSIgdmFs aNiuNZC1y7NcGu27N51pZ HdpZHRoPSIyMCUiIHZhbG gmux5kyK5vKu5+BK6tn4m poh35lE82fNC+ KUYcBVB1dMdfGSryGFJhn Q9cXZbvOtR1YZHjEwZdmS 20aNBrIWwuOl3lyScyhOx qFP4eWUJzgpfg n213MzIml1auETDhnMZqB LriLUM8I10on7V2RDSoKA ZaFVP6eLH0zR1jlOwnpnl gbGVmdDsgdmVy kOqxXOaoIGcxP155SXWpz CkcTtCmjAInA0rzerQBSY 1lOjwvdGQ+LCUzEUU6vSh rZRflXBAacW7i ONYbL7o9BgPbWzU2ILycM 5AcmaY9CQXgeVDfRXAtdG LFlJ3udselv8gvvkinKbC zXJYkHMg1AUv1 HMXoxHlrHhMhSZN2ZfE5I GP2qVYmxX6boYvjtqfoiK 9wOyc+RklOOjwvdGQ+PHR fTCH2eHmhGHwh XFXqeB1xWMAsV7a0DiBwS vP3ZZbhO6AovnF6QDXiaS ZgICJvbLLOfD3bygfbv5a vcjogIzAwMDAw REc6ZQc1XPCgvQeeLyKpV YK8IrU4EXZ2aMSuyY0bjF hsadtlhZ5yJza+TVJOOjw vdGQ+PHRkIHN0 bKmwRRjxCBFogW9aGLGqR 6a4IjKaNgS0KJiuO4Qiha Q6QWBdrYVuFCKlpXNExT6 nyscmy0gjsuzj ZdEfBJAuLXt2PHv9VMOqo YbcQnVtLRZ4JtZ8ORR8xB RgqT0zcYfewocinK3uRrk +VOM6LSH2WU13 YL87U4KjUqqpaPPbnZB+P HRhYmxlIHdpZHRoPScxMD LjQaKjeLjlRU5iUm1pYFQ yLWNvbGxhcHNl OiB (more content not included)... [facility] Coding Summaryon 07-03-2024 Coding Summary HTMLBase 64 EjwwunewVQz6uQm+PGhlY WQ+QD6UNCOpS95rnZNtlC 3lF5DGZMjUTtpbLWABHJo CFhLahvFrTX1anWClAFEs IC8+CV8mOTHhCdbgrKAwa 3Q6hRG9F78cmz9yQHszzS T3CUGnVpAjsgktl5dptGt 6IDcuNmluOyBt HOSfaS73UCI1eE27Tw58e SKepXLkt2twlOu6ZbDmNY ZeAUO1lEdpYGwdr5FhKFS nZ62cbUIsk1V3 RKUkdEcgkMVdQvQguOK4s W0nSAywstpge0qrzkigJi m3dz44sQQfu4R2qHJ8H8O syxW3XFJnrICr JtbedLONhO6ypgxyv9uoy twxCjNdZPBhPMi6YMr7EL HkjYynWyEqZH59XMH6NIL xwoHxU6ZsPDGs fByjYcM4z8S7Ss1MA9JEJ eycN0LXGTRZTRpcrCR+PC 18aw21F0XyRfyrVzb7JFL oJTP4xCW8sP2h CKBwRBswe7N9rVQ5Y4Bdt hRitv2gs7fyDCUkRVmiL6 1fmYQob0X3OQZreLO4CLO ygOqlSwRawJ23 Oyc+BTDueUaru2PdOjcvw 5tvg5axpHk7DeluOZJcar ZadUyoORQ5o1IxBw3hZQM pwUD9uZI4kT8u QvShPoO5OTdlN248AeCjw WJiDnouG52yO7QezQR+PH CvQyj2NGWqtMseXQ4zD0V hZGRpbmctbGVm oIeyIF2cWEPpjajwZRLhd J9rAESqJ0e8WjRqOuH5FD knB1FnJKIextykHk41nV9 mWxXqJzE3ZWrl B8TavxF4LWFcaRPeHKqoT FQ1B96kx3K7SQXwDTEeZJ G3dZK6xV1tdNzfqnnksWI mdDsgdmVydGlj VUjsDUzpT926IIHoiAibR kNvZGluZyBEYXRlOiAgMT AvMTUvMjAyNDwvdGQ+PHR hZDZ6jBzsJJBv uEGwLEexZm1phQmmyFvoI I3vPHMvticdSRWunF0gDG GrlFHklVhoBO2yDEIoeek bm535QyAlVKU8 ELNzvNIzL4IwyP2zCxCiF SDpYLGtH9HvuKKoXVkxL4 39PVfsSkJ4EISeadPdH0R sLWFsaWduOiB0 b4D7Tc4Zz2XadrqcN6Cqm HHkMjFyDnzwSXs9M4QcMv wvdHI+BA15RXLuLS40RMo 4QTS5sUgyOSst SULgS5TdqX7nXfYoTTPxS GRkOyc+PHRhYmxlIHdpZH RoPScxMDAlJyBzdHlsZT0 gKx8fTNSnKXWq gHlmrSOlVfAto4haECLzM WykJF3jwGwzT6PzeDW1PS Ykz2w2Go55D33jV8ZvnYP +KEJipOU7vXH4 pG4dMbWuUcK1MHovR364G vGkcPVqVambs1vae6cdeW y4JmP1GWWvtkUrsWjwPAP 0e3HqAx80N83f IHdpZHRoPSIxNSUiIHZhb Nybah3vfN4qLh1+PGNvbC G0rWI7zC2nRdMxEaT5JXv gA873CnMdqHWg Wssoj1cnh1wxoKd7IhPgV QUchwAlbYybCYT6p1ReHx 02Q7CsbOpdt4OxPoj4en6 4mOKsg5K5eYI4 L3LhPORswlgxgNYzbHxzN P1mPKHeswahOFWzpW8qHB MmS4o1NjYcQwR0VCpvD5B yvfO9XMCbvFGm MZOeeXNSvD0rhptxn1szb wybHvHlXVKyUYt7VHh8AN McsSqwDoZaJDP4EtF9OFE 7fGAvyA8rbOiz fvbljY0qSqf+YJV8fBMac TIZNF0bQvkyaJI+PHRkIH U2rHncKBfwVPQcwX9vDQH hZ7u9IjQfLrT0 CPxgL0OirkU8RHTuzADpW ARrsRYXwC0wuoqui1oywq tkViZrNPRgNDc4EMh1BHY saWduOiBsZWZ0 OzF0STA5kBGbwS7htXhcw selvG3pNwf+QmlydGggRG R3SRm4N3VjBcp2KTEnzHc sDM2qcDXwIIuw Il9vrOaewUyoZR6gZNBcr tqyf194ErAid0vhDZBxyV MjJGkzLVB9S01ld4C8VNK oPJSzMFP0mNI0 vW3rsWtykkwzrLGfyYzkj kKsbWxiLWfrTFdtQ460MX XugNihGyTgPSg5W3TzMms 2KLVhfMohUM1h zPNxYLklZt9lyWdtgBgkK S9jOSSmpjjuc876GhJji0 zeGYXwbZYqTDhlAFE8T55 wk1A7KCNlSBTm XWT3zRI8pY1lrEbkuzdxq GVmdDsgdmVydGljYWwtYW xsB475JZHodWbaYvYjtKb 8J1OfKem2ZBGx fYzoLQ5tuYDaJVxcPi2qt WtccKgvYM3pBRItjywsz6 79DiNyx0bwJYMeaOEiMGh ySOS1O16gq4R8 VGAyYISpMBK1cBO4dH5bs GlnbjogbGVmdDsgdmVydG bpLPwuOAkeQ297ZMPtyFj nPlBhdGllbnQg NJbuUBj5G8JgChhnaGX+P G79MWZaFC58sSVbpDPqv3 rgoCe8HqJwGXAvGXP3kTc fRVyut2YaIGHd I32vvSAcu1N3UMFevPfot VBmAdGcaVD5rM9mVDxwig vuz8iacxrhWdzwe6siuu2 0qW34Y41tBSjj ZHRoPSIzMCUiIHZhbGlnb e7piC3jUt8+RURlpGX3bO D0lW3xHHPlRlU7VJlvT43 9InRvcCIvPjxj z2tqe1bzwCd7ZaD4JELwl fNloMqcEYV6o0RaTn10H0 9sIHdpZHRoPSIyMCUiIHZ ooCmzta4qlS1t Ii8+DGTzeOD3rKU6qT8eK qBeAiZ6VModD029AkTkiN TzPslyZ95eM4LoaOC+PHR wQoh3BMTxqCab GO2hkCZjKTkoHo6nPKH5B lIiEtLlPVejI3SrQZSwpv ylikjsfXY9VXJtUSFhcX5 1Mf8sfDjyQJZo rFGJpU3gqnyjf6zookuuV rRzRZUhBGt0EOi2GGUypN laYhYwPXO1IqT0IZX4wPH uxZ4mlRayfiuy nM6mR7AtWULurihmZv40w B2yFjIsIoY5VGaqDen+U0 BHEOKVTqjaPXFVC2bkYEo MDD71Y8OePqf1 QMQqyRuyDC2ukWJsYItjA p8duHyemPzdCH9xYIOxxz ecSWGqaL3nNCPkcLMwaTm fRW7vVDTbdfro e110UiQpPMW7UIZtaHGhF 4QstT4uHnDlRLVnOCKlD8 MfnWOjLXdoF245HHpmXuC 3GEQadvEtG5Mk WBEoyRqaZaO9f1Z5Cj5rQ u4pQN2gKFT7BE29VM10oE Bir7K1lQL0B7AdFTVgwkz xivepdYY1USPg UTGtyA35pGLsCMjeOw8ff 8M2y687SIHgHMDheX82Tq 5mjPagNOBjgRYTsZ5ynls wc3cqddkgTcWo FVSbPLj7KPu8YGLohQquN pWtDMR6FvI3DHT9pPImrP 9xhGbfwbicwE1kEat+NTk cVCKeznP5K3Kd Ivp8FSIksTgrLY8ybHBvG GftGa0fbWgwpLwjAX0hYP KtuhlxPYAspT9qJNEidLT ngQznYL3pXPBp casvo736QeYtYCI8HFJrk WDaH7UtjX5cDpVnCRUaYL UzB0XjnMCcOYuwS697LJl fUdU3VSXmydMr O6EdCKYmlJbpInU4c2T5L b8PKKvGPW27XV18fEAhb1 K3kQD6C4KrIMHlnerwiia vwQS7KSIeXJKw dD47jYCtHMunTk7rt2O7e 877SBIvLEZwxF35Gi7ypF juUQNvnNEVpJ4fwpyqt9g vcjogIzAwMDAw IOt3NUt3BEOpvSiyGjNqC TY8LiW0TFZ4yRJrwE2uxN fzhvdwsM9eIis+J4F3Y8D kPjwvdHI+PC90 PGDmTB53iCIfyGKmn5zjo Jd1HdLcLRNlUIO6dXxvKR acf9HoACMsP88lxSJgm9M 6IGNvbGxhcHNl HrRmrPK5yM1yTDaulzfsm 4hnxickFelyl0osxb28dU 97D43tSCiuVMFlTMFmCDW tQYEzoKpcrs0j jC1kAs8+WJFomSF0sLX3t Z9iFfRbQjZ1NPklE645Qe VjnKLaAlgsh3ban4mxyDm 9IjIwJSIgdmFs eSdhNZK8b0OfLy77X58nH HdpZHRoPSIyMCUiIHZhbG lyyq7ldJ5eQm5+QU2gn6h ebe10kM41zEH+ AUFcHLE2gKdwKVxbCUCxd B3wFWtwGsY6QJKkQrUafZ 93gTQgYYusLr2gvMngaBa wYS3kAMRbktec x682AyRyq5irBWDgwHHwM HgiJAD8K05op6C9GDNlCA GpAIB9sOA0nT8joLdqniu gbGVmdDsgdmVy rGxqNEcvEOxlQ840UKOlv YmiFuGzoMFyQ5nqocISHU 1lOjwvdGQ+EOPsVUB7uKo pNOslKHYbzI4s SQKhT7n5ThAvHcU1VZxbT 7EhkfB4HXJukHCdCEYriY VXsI4ggwgxp0gippkeZjS bXVRqRWr1OYo7 YORbmZyzFdHrJGJ4NhD5P CU8pSTxdE7yuWpobpiidP 9wOyc+RklOOjwvdGQ+PHR wNBM0qHfmKFwd CTKonD6qLYBqJ6w7JbRjK xE3UCdaN7DmziB4YTVylQ XuNYTpnHFIvA8gawiul2l vcjogIzAwMDAw BFw8RTe9GQFquWqjCiWsI SM2LnF9VXN2iCXouL8kuQ lzsgpumN0dXpl+TVJOOjw vdGQ+PHRkIHN0 hYraACypQAOppN1xIWXgH 8t7XgFmMyW8RLglM2Jfgd I9JCKrzUFoRQUinFVQmS7 xxklcp9zxjxdc RjBaLPCeTFf8JZm5ZCAey VerQzRkRBB9EoJ1XVG2oV GsbU2ukZuanziwjD0eTky +YMJ9EHS4TE83 EN49H3ZzRoebxLMbhXY+P HRhYmxlIHdpZHRoPScxMD PnJmKpkRdgZR2aGu6cPMX yLWNvbGxhcHNl OiB (more content not included)... [facility] Wound Care Noteon 10-14-2024 Wound Care Note [id number]#1. 00OTGTIFF Normal [facility] Coding Summaryon 06-28-2024 Coding Summary HTMLBase 64 DawyiybdXLb4qTm+PGhlY WQ+ZK5QAYOpC86wfKTepM 8qF7XMUAvHElzmBSGDIZr IWoUssfPyNR7vcRQmOFNz IC8+DC6tFOGeKosldEXwm 4S8lYP6S02mlr1tAToytJ C6YKOqOgTsnoxlo8kbsBi 6IDcuNmluOyBt TJBukI54NCO0fC69Tr28v TRsrZCha4uuoJe1KvHpIW BtRQL5aOchWHmsx8IeOVZ bW00tmKBja0G7 PAUenGtbfKDnCuXtjWA8t Y9mVYzvwpwzm8nxhhlzMm g7be51dSWon5Y2jXM5J8X irkL9MDXqoLHi WbdnxPWMeB4xbzhje6cfb ryyWcAlTUNaOVw0BUi2SL YhgDfsZeXcLJ90BGI1RSR sqrBbG4RrQRHu iEluGmG8s8D0Ff0MB2NFW lvzZ4EEDZCZUPqrbWT+PC 22ym74P0EnMkxyPhr8ARI ePAT4sZZ8tI4s GEWcVHcqx8B1lTC5A1Zke rPruq3us7qfWWCkVKjzM1 8ymSLbn9U3GDRirFC4ACY yrJdwGhCdzE78 Oyc+GDOmmIzwm3TgGchgf 4suy8qcsZv1RijqUUOkch WptUxkYNL6p5GcCh2xUOX uiXS7fLU3nL5f WaQgMnJ0GCrwD002QeMya QRzByyxE21jT7DnaQM+PH HqOuk9JFDmtJnkHM5gY4G hZGRpbmctbGVm qVleQU3tDJSpcvwhQWIbr D8eVDKpU7f7VqEjHhC6FC lqZ9AfNIPabjfuGh70xB6 uUlLsIrL3NTsk B5UgfvP8TLZtpFUdAGjdU ZN5K84jx6M0YQFpSXXoXP O4sVX2sL6diNtkdqkzhWN mdDsgdmVydGlj SNrmWMulV169IPQuvPngZ kNvZGluZyBEYXRlOiAgMT AvMTAvMjAyNDwvdGQ+PHR uNNA6mLeiXWNb rLGfWKhnJf1ahKiisGlpO P2gLDWwbffiXZEbmZ0bQN JldXJflDscDB9aRUHkoub mv786AdCrXIB4 XCDlkNYmA7WpyH6xPyEtS FDlJOKrN6LkpNKcGTnuN9 70XClbQeY0CTJtmcHnQ9F sLWFsaWduOiB0 b0H0Bn5As0SsniykF7Sdq LSoChToVlesEJj7R2PjXm wvdHI+KI83LOJqPW29INz 9DPZ6lIkpUDfq MLVaO8FjtA9oYlOlKVJkI GRkOyc+PHRhYmxlIHdpZH RoPScxMDAlJyBzdHlsZT0 rWr6fYDPyJMYn sEfqhPYsSfPfy4kfGPDxD HrlIK5qvWysC2TthNZ3KO Xyv3z2Cs12Y17pG9GjoMX +DWYfhND9sZJ0 jZ0oNtRaXcS8JYopQ122J iBxqIOgSfxjc0guf8tthL w7MhN5BFIvttIdoVkpEIN 0x4GdAh88X52e IHdpZHRoPSIxNSUiIHZhb Kfrvj0cfJ3fEo1+PGNvbC O8wIQ5fX1nQkPqEuO3IVn xR227TuDgdWAj Fkivs8mio8bsvGg0UtWkQ SSclcMtoNdzRLZ3i8OuFu 31Q7GxeLbtu7SyQhj9fc2 0qEPbv0H0xRC1 D9IgPMCsmcvlmNAvfIcdI Q1vDUKfkuhsYNEfbW5aML KhE0q9OtDbAvJ0SDjkV5M ujiV4ASAdbKOf YYUwhAIIeA6gztnih6ojq mbpAdYdGZXvCUn3FQt3HY VwaNvuSeOwARY1GjE0CYC 1zNEquD7nsDph bwihyI8lDlk+VTN6aLHvi SEQFK0bBzefkCC+PHRkIH S9fNcmREopVUQwaE4tKCC dD7b4KtIwPuX5 ZRtfO0QtixT4VKViuOEpO JCajUVStN9dwxlop3luzs arKxGsEJYrBVl4QWw2NDZ saWduOiBsZWZ0 UmH9IJS7aDCarV1aqNcwj ygqgS8vLwt+QmlydGggRG E0IOo8R3DqQzs8ZFKtwFz bKP3iaSVhUChh Bk7ahZjyvFbcZB0jQLGef fdmw498QkMun0bwNIKjeO KeMDzgQTQ4T77zz2F9KNA mBAMnWWK3yBW6 nR5dnBsrfupddXXhqLnkz yVtsCwkCAfoYKzfD255UT OlcRqxDlYlGKi9F4IiHmp 1BTIngNxzUW4k mMRhXKlsDe8qkZufkMgqG G1wFRKouahxp974NgEqo6 umKEUzqMPyOMqaYPA9C09 jf9Z7QHSmZNNt JPP1jBA2wR5jeRmjeyttb GVmdDsgdmVydGljYWwtYW lnK483UWGqlDfzDoCdoAc 5I3GdOtj7AKZa xLdePL2xtNGyDBdeAe7gb OsnxNhmAW6jTOQowyqhz1 20StUyj1biHNKnlKTbGIb sUYX4Y30wi3U8 IBAtLJSeMSX9nZX7gI1ey GlnbjogbGVmdDsgdmVydG vkGCzbZPokA916AJDekLb nPlBhdGllbnQg LTwaRIx9S9LmHtidmGR+P Q88LDBnDD22xDRbyLSes8 kaiTs0HxEpWIQqFRY0zGr oTAllg8XvWYKq C59ntEHur2C3JFXtfQnyj LQpPsJtsFK7lC9yWYdtkq bgl5bohjgbJbldm3cqhl4 9eA83D04iDVoi ZHRoPSIzMCUiIHZhbGlnb z9ddD3eNd4+RKNzzZJ6uB E0lS8tNCZpZkT1CYiaT08 9InRvcCIvPjxj k5ctd3iqoLy0PlK2OANte yHotJvwWAT5v2RiCy81O1 9sIHdpZHRoPSIyMCUiIHZ lbMllgv0dgQ8i Ii8+KWHkpUW0sBV6aZ2oL mPvUuP4NMxmQ898QhUopC OjOnfwI94aM7MohGE+PHR sEmt1UPQryWzg BT2eqUMkEOrcGi0vKKE6O hZtDrBjZOtfG9AcFQQjyw iopfikdYZ3BQFoLWBjsX0 1Uo4ngCjhKRYx zHTPwD0milyyt0qilkcgT nWoHAQfJCo8PTh1FZGwnA rdJlYdLMS8ArC9BNK5rFV itW2mjWgsvcvg yM6qY0CbDMQzjepcQd75k F8qAeKxIjH3EJxuOed+U0 OQYBLOHfheTUWPV4ecHNp SRI96R5PuPam4 FKSgxKkuIX8xdHJyNSnhY d4bhMzplBedUM2nKGHiet qaMWZwnG2zWPOcpVWnjCi pWU8lFQSrfaoa s301MpGeFOL2CSJvqRVwP 9GisA9iNfXmRPVtEGAkP7 RixJTkFYiyK817IHauOtW 5FQJfvrOvO3Ae UNXtzOeaMrM8f3N9Tg2oU o8kDR6lRMI5LJ93IC05tZ Zoa7T3hTQ8E8AaNEIaecs rnibetAO2ZFEh CHRktH10pGBfDRvqEu0gv 2N4y631KMMtSYIeyS30Ah 8tuUjpTTMavRRBhZ1xfbb os6horqhnCnQl GUTqZWb4VXg8VCEaiLqwT xFmTZE0EfC9MTC2yRFccK 9orRikmybjoG2hSuz+NTk wFRXtspW8O0Pk Mbf0JUHgbMwpIQ5wdKMpP UrvEz3fkUxyiFucIT9iPB VjbzfhWXLsqU1hAMDpbDG uxRhaHK9nVNGg pbdte710FrOcIEN8URExw ZYnW5WzoC0aFhSxFHQaHR WxW8CoiYGkHVnfT409RYf mAtP2YNQhsiAd D0YrTBSpsTpvWqX7l0G3Y t9ZCKxEDS77QY70bQBgg6 Y8fOQ4Z1CrULBajojmnnk omZL7NDJlBLSm rH46cSVdFYylHx7bq5B3k 190GOYmOHAynF77Jg2kkT xbAUUwjYOFkH0pdqlwv9m vcjogIzAwMDAw IKk1GUm1KFNkdUvuLoSqX HO5SvZ9ELK2bTBzmU8vuX nqritgoP3yObw+TJ0piof tqpC8PD91VV37 N2OmZwqddFHfzRB+PHRhY mxlIHdpZHRoPScxMDAlJy NgkNtaSB1mYw3wYJVzDMU vbGxhcHNlOiBj d0ylJGWpPIlhWU9gcLrrD 3EbpBU1JXAva1r7Yf36Z2 4yR6XkxAS+QXLfdYS2eLX 8pO1hNhGbQdG6 VWueI405XpMxoQBcSvief 2cqi0uidZh1XqNvSINtjw NzeEeqRAD8m4AfBe60E36 sIHdpZHRoPSIy YSKmDENtfQpqlo3eiJ7fY i8+SCOipAT2xGX2dY6fYd IjJiI6GJiwI735RiPseLR cTtmwU59nL1Qj dXA+AXVjZpb5ONDrgFumZ H2ycAHmFZwhQc3lKNE7Go QvFsFnTOkhM6EiMZLmgiw xcudvbVG2VFLf OXDyfB49Jb9yhWiyYl8xC KYhYGV0KKUozQKmM3QgjP 7zJeAbGSBfKBAoQ6OvmAL gZEfcN507JAow CcN4BEBgdbJkO3PeHCNpp GstKqD2q3B0Xl6EmKpfyZ VzCR6rKwXhABy4G0GpYat 4ZPZwdIokQW4x dVVwIOgeWo4ugUvcyPmtX F4aUIMibawlh535PbKup3 isASTadPJmQMczRJH5B63 sp3B1CRMbDHJp PIZ8xOM8wK5vbImmagfxe GVmdDsgdmVydGljYWwtYW qxS200OFCfqHjlTaSVMzv 3R4RmXjg2ZJMc rDquRL1ftQGiFKdkDy0kl GczfOqkOD4tAQXsylole2 49IdLdv8xyTCBasDAlPTr qOOH0E75ol8K9 MBCaIWFhARJ0fON8lA3iw GlnbjogbGVmdDsgdmVydG wyKXfwBWjjS032FTHpiMk yNb2IBsf2I8Ie Iog4BWKypDklOP7haEIkI RbeFe2dwMpogEziFJ4uKO Liikcsv251RbSou6phVOX wcHQgVGltZXM7 E73pc7T1UYEuATSzHAH1y QH6vT8joUzciqkjdQMxhA uyylAvaAakHGquVFxlM63 6IHRvcDsnPlBh eWVyOjwvdGQ+BD06uf49B 7TqEdjsDgu7EOBsMGU1tC D2jO0vMTFnZSsao4O6uVL 5O1QgrcAbta6x b2x (more content not included)... 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 Thanks. [Electronically Signed on: 07/04/2024 08:25 EDT] Kimberly Jones MD [Verified on: 07/04/2024 08:25 EDT] Kimberly Jones MD [Transcribed on: 06/26/2024 11:45 EDT] [facility] Coding Summaryon 06-25-2024 Coding Summary HTMLBase 64 DiljmkzlGXx1xRw+PGhlY WQ+JU9VRAPpK65wgPLlnW 9cH7FQVSmDEffqODRFZZr ENdUwtuWuPE7pbQWxPHYb IC8+VM9eSMNyLdzzdLEie 9S6fAA8F08idk3iXQfanG N5VWIiOlIwkvwwa3ldhTr 6IDcuNmluOyBt JVOanT14UPK6jS26Pn89i PHfyBZwq6xajQa6ZtSwYS EiOJY6rWjfUShoi6YsBHQ aV79rhVJjm6D9 OUIviCkclCJzDhBgzUS1g T5iNGowrgtip1yvhcpoKl a3wf14yWLyz5S1bFU4Y9P cigT4FYWeoKZb OeuwaLQYyQ9yoibzy3kjz vwhXpQuALBcJXa5KOx7RC KcsAqlJpPbJF97ROQ0QFL pzrTpX9GmBELe lUdtHxM7a2S7Cg6LD6VZK apgI7ZSXCAVWVatzSC+PC 28op62E3GkFvhcUbw4YYL pOTQ7kSJ5wJ5k NKVlMKeka0Y1mQB4U2Fho jCwwi9um1kxXLDpQJfsW5 1ooWNox4P2CYOpbUA9CZR amYxrUoUmaL86 Oyc+AKDosAhkt1EtLprgj 6buk0cwzIb0NrynIMKtkw ZmvFavVDB4a1DxUa4zVAZ cqQG5dAQ1dW8e EnCvDaG4DZgaC824CiMks YMgMxgaF50gD4AegIU+PH VoOxi6OGQrqIeaPB5nP3S hZGRpbmctbGVm gGhtLJ1iYRTqseakFRApq M8gWJCiP2u6YtOiXrI2ZM oiI4InFTBuuyhjWe15aL6 jTrOyXrY8WOwm X7AziaS0GVTawUGrTHaaY FQ3K17zh1Y2AFRiJNGvDQ R1sCD1cB5goPfwjljxwJH mdDsgdmVydGlj JKvjSFgtF114WWMwoSgyC kNvZGluZyBEYXRlOiAgMT AvMDcvMjAyNDwvdGQ+PHR kBYY8kYpjTIUy lZDvWLuaLl8geTwasDulY F5vMDAlmyjyNNSlaL1lHK JtbMOabEdoWY6tLVCfvke ai556ZsMcXFP0 MYYwpJAqK9HrmJ7rPnQbL FWiUEFdR4RryPUsAYfoU5 20TNeoFuW5ZFWxkbYrF6R sLWFsaWduOiB0 o4C9Py9Xf5TpxwqiD0Mml TJlHsBiVjhiADn0Y8EcTh wvdHI+EK89VOPeYV36KBl 8SGB9zUthHGji RYWnC8NxlV6lDvXpHXXzL GRkOyc+PHRhYmxlIHdpZH RoPScxMDAlJyBzdHlsZT0 uCg0kVYZyICHw fEwtzRYhMqCcn0lnLEYcF PkiMP0qoFhuU0HnoFB1NG Kce2w7Yw79Q58zY6LypWT +NAGxsRD1tWN6 sT2qCpVnRfT4NAnfV908D mOuyAMnXgmgn7frk2vzsD e9NtQ7KADtqaNbcCjxDBB 8v3KtLi80S30e IHdpZHRoPSIxNSUiIHZhb Imtsy5htP1zWt1+PGNvbC K1nQX6fH2aIdWuEoC7IEk gZ260VcFtoONl Wqdno1nbv7rtkFy4LuKgR PFkofLiyRrcSJE5j8EjFq 21J2UohEfeg8ZvGtb3ze7 7dWXrb7A5vAJ6 F5UvYVAjmjlsaYOnwAmlA O6oRYHpxldrPCElxC9dEZ ZnU0h5EoMtDaT3MRfzA2U ansB9HQPlgGTz KIZitAKKoV9upewdz2urc ghyQsSyUCWwMXu1RKs3EA ArwMguMfWfFFA1YpD0HSW 7oRIycL6huYay achkfS3vUtt+KFH9bCBmm OJWAH9nLkvizSY+PHRkIH B2zKuuUMiySBRotE4wTYX uC5z4EgCwJfE6 MTstW2MutxO9SAMjnPYqR RBnqTTUrM1gzoirb2owwr fjMuBaAYKfKOd1EOv7JBJ saWduOiBsZWZ0 DjN4EJA5vKSvsJ6yzVxca opaeK3dDnx+QmlydGggRG E6HSj9O1TyZoz3TPFocIg lXX4iuMKkFAsr Mx4btRhoaDzpCT9fRJWdz fnwt566FhSmm4cgWOFaeC KlUKnbPQM2W79sl2Y0FSE qWMAaARC3kBS7 jG7ijMjvefkvwUGgmNmfa dViuZxfWTlfZNaeA204ZJ BtcIfqQyWsVVx2U6UxYch 9PZDuiIwsSM9y bCIpDQnuVy0erPyitJrbK S7tGUDyepozg024ByEzf8 dpADSnnSTwITfiHUF8M37 zv3M5PDBkRQZj HES2sMD8lK0fvYlynjbvd GVmdDsgdmVydGljYWwtYW meN175RHLndQdvYxKoeEt 0W3YbVig2BSLv tBcbKD1frCBkLTneYa3kt LmnvUagAF0cVKPoyznfa5 86BlYpr1xiCWYigCXfZTx rMDT3G34pm8C0 UJKrRIDaOWC6qCI5eT2sq GlnbjogbGVmdDsgdmVydG qeIYufENddF791QQUieGi nPlBhdGllbnQg AZovUEj3Q5WsAmfkcRM+P Z78RZKpKB76nHTggMRip9 zdhEu4VpYkUHFdTAM5pLd sLJzyi9ZcVMKd Y14giMTuv4T9GIIwfMorl JSoXqQvkQU8aL5fBYmpem bqo9ukfjyqGcjwx6hkwu1 8jP25H37vGTil ZHRoPSIzMCUiIHZhbGlnb p1tqI2dSk0+QXZzeGU9yM N8vR4tDWYgAwV6ODwxD99 9InRvcCIvPjxj b2asy7nlmLk5QzE9LWIrb lTvsVifXBU2u5NhZl41Q5 9sIHdpZHRoPSIyMCUiIHZ tvTteor2cxL6b Ii8+SUDwmGV5cTY4fC1aO rChZoG1XAtsV774WcJauD RnBxfoP92zQ0YxaHF+PHR xUlw2MFKjxInp SD9smGQcJSmlLa6cKWD8A lJvQrSeFXtlY5RmWUSuny oihstkkCN2RNGcAWCazA2 7Cw9pcYbfBJAk zFVMkY2oxascc4mwzzqkL eJoHPHhBBb1XJa3BZYlhD vcMwChJZV2JhC3ZTY8sYG chB5xbPemxjii cH9vY5MkLWIzdbpxIa66u X1oXjHhNzQ1LIkxZfw+U0 IZVWAUTnrfVAUGA5tzPYr KKK85Z3RmWuq1 DPBgdSysFF1ttXZgHIjrX m3oqJuksQbfXW1rBZSjmd jmHTVrhO6rQVDadQPbsUl cND2iYMTmiuqu e001YuJtYQZ7PRNjyIPlG 1ZluC9dDyShQWTqKXCkP0 AwcFWwTWdrV037LMzcGwK 8OECpvmFgA4It LWSffDajSjR5o4K0Zk8kE k0tRC9fFYV2NF13WM66oT Jjv9U6aHV0K3WmBCZtusl yavxwiJL6CQEc HVSymV32tHDfAXxkTj7bh 3E1r759IRMqYHHihH11Tk 6dvXpxRANyqTQKyB5adcv rm7iuzsmgPhAs BSIoLIo7SKa5PLLkaDocG mEdYUT2QxE8MBG6sCNzaI 5spUiuwijysU8dMfw+NTk wYCRpplX6H6Xu Evv3CEJjhWqhBA6tjZBtB RsiQn7qlCczbQdtYJ2sIY WkckljKIJcgA1rQNYycQX ejOjpUR3sQLGq ewrml249CnOaZYQ9WWLba JYoV2FvoL9gHlKdZALzVC IeT0YkePFqUNraS871YXh zVuW6UFAkmtRo I3ShEQFbcUgyNaT2d3C0Y x5BNZbWMO22UX15fVUvs6 A5eHM0O4RxTTLyssscdme xoJW9LABdWMXc dC91iZPwQMnqBi8wj9E3f 670IEFoFYLanZ33Un2oqG kpKDOspCVGcZ9uwagmo9n vcjogIzAwMDAw YJf6WGi8RQPsfRkeCaUoW RC2GiW5CZR1xOBvzE1plA gbpzeuhR6iUlw+T1R1S1F kPjwvdHI+PC90 DNPxFT17lYCbbLTsv8bmk Wa2KyGtSKXkDXH7jWthVZ det1DgCGCiF82twOKyh2H 6IGNvbGxhcHNl NbOodJZ8gD7aTWcshrtph 8xmxfwiOmypd5wqrp02jJ 68W91tZEknQQZzQMZoZNM uTJGbwJbeid8z xX2bTd9+VNIfkXB4uPZ8a F2fTfVrOqH9KSzhB079Ss HbgZIcAjtun3xwv7galNr 9IjIwJSIgdmFs jLwrHFB7i0VnSo91O78zQ HdpZHRoPSIyMCUiIHZhbG yjeu9lgS9iMa4+TU0nh6j lkr65tO97nSO+ FPUzADZ8tEfyWVroDJTdv N3fTEeaUaO1OOVmNiQlfW 33fWRrFJqlDk1ixLpszGn aQY5rTEUypowy b308DpGwx5vnKMRjeYPzN UufCXE6H47px4B6LRTnVJ OeTTE3sPA9cE4yyWlojhk gbGVmdDsgdmVy yWdyDXurFZlsE611GRDnf BnyKoUkwAAyC1xpeaNTVV 1lOjwvdGQ+PMVeNNO0hRj pUWdmSBVtrL6s JQGsO8s0UaLlXhE3HMtzS 6LdolR1WQEdxRWxGASwgN QPzG8hadpgo1rtswplKrA zWFUqJOx2EIb4 CTYkaEpjAsYbPRU6GnX0B FU4gNPihH0jiCfrfksrrG 9wOyc+RklOOjwvdGQ+PHR iJII3nZigDCsm HGMylE2zZXUpR5l5MhMrI hT8YAozT1VxvrY9JZUxyV LhINHkiKMWzR2jvmgbm8w vcjogIzAwMDAw NKk7OBn3EFCsxOnzXyZpB SU0PmT9XNE6wOHtiA9fmA qhvfkwhJ2fDoy+TVJOOjw vdGQ+PHRkIHN0 hRlgFXucQYIwxI1bVJGoK 5d0UtZhKoW8ZKofQ7Hpvr R1CBKnbBPoKFKctELSlC8 rriwcx1qjegsp HsEyHUPvWKz2VAu9NFFnw QhoTsGqMXQ5XuA9EBS6rV AejD3nzTncfvditS9xFez +HUO7DFE3WZ03 LD60X6HbSzcovRLphEA+P HRhYmxlIHdpZHRoPScxMD LjLaRoaViiGT4xYv3fACV yLWNvbGxhcHNl OiB (more content not included)... [facility] Coding Summaryon 06-14-2024 Coding Summary HTMLBase 64 TugtvudzEPp6oMh+PGhlY WQ+CH9EPMAtR74bbFWqvP 2hC1LVLSxETsriMBWGTKx DBvHmmkAaGD8htFWuBCIf IC8+LG9wPQDsWmcmpVJzf 4K2gRC6Y87yhf7hFZopcC K0IOEsIsBzhkjpe7ldmJh 6IDcuNmluOyBt ZISpyX28IMB8zH34Np86z NQzgFEpk0mxvVx8PtJdQV NxOHZ7vTbrZKgub1ZjGCT tU99kpBNqs4C7 OFVzyMiqoGWpKfZliYP1k U9nLPzcpsjuu4gobvnzTn h7gv83sWDnp3P1tEH7N3S aeiV1ZHZuoCCn MxcdlFGXhT3gwyrhl5ytp wzcKyJaTHKaHCr1GTw7CI UdcSeaNhWwGR17WUG6PJL pjxUeE4YuMHAs yAxwKaD8a2S7Hu1PU7KDV kwrU5BFVSZQLLphaCA+PC 27dq57N0CwBgthGxa5EDO pDSW5hAI7xH2y QJUzBXvpg5V9wMQ9O9Gew bFsyo1bo6dfIOCgIAfwO4 8roUXsl5Y2OFFkmLH2NKW kkEygToYxrM10 Oyc+UUQwyMguc8CyEecnu 5rzg1husYk0KjhfPKDhta IkaHbzQMR7o4UoPg2mSLM pqNW4wQR0aR7t MjDpIuG6VDjyT307BxNnr HXwWaftK49iG9CqbEQ+PH OxDww6UTRkqCttAR0zT3L hZGRpbmctbGVm oUocMG9gIHHrfbsmKEUwv K2wJHWlM5q0PiQqSjP7ER bcW7HpTYJyngznPi93mO9 cZxFyPjS9ISra P9NlacI8WDCilPAyNPmsD RU5C40sz6U2RSFnKMSdTJ T9mCI3cU5buJrvdpxhxME mdDsgdmVydGlj MKmpYPqrG785LGQjbRwpS kNvZGluZyBEYXRlOiAgMD kvMjYvMjAyNDwvdGQ+PHR uYNC2wUqaVIIg vTYrJUqgHo2imAlnmShyL W6aCHYjjigbDANovS0hYW VmrZNmoFomMF0hLMGvqmv df683UuGcYYC4 ZNRsaHRsE7LqeC5lVcZiH XRmRLSvS8GdyCNnGAmxY9 83UUuoEpI0YLDlgtFgS4W sLWFsaWduOiB0 d9G4Ex2Sj9BqjfqdK3Akj LQuLxUvCqpgEDl0C4WtTu wvdHI+BF65LAIwDZ89BAa 6WJH9fQolGXnd TERxF5TqrK5fQjGjJYMuA GRkOyc+PHRhYmxlIHdpZH RoPScxMDAlJyBzdHlsZT0 pVw1bQAMwXOAs gMqsvEBbMaXnh2lxUBQrQ LgyXA5srUkaU2KrgTS3WH Kew0k6Jg31Y64dR8MhySF +NSUtkSY0rET0 sS5pIbTgHzR6WQrvV247J iAhqVMoOefxt7sfh9yagS n3BjK7ZZUgidDzrAkaBID 6u2WrTc08N31y IHdpZHRoPSIxNSUiIHZhb Mkmke3byW1tMu9+PGNvbC L5hYJ2gV0dQdOaFdP3UQd tP263YsNvkQNy Admob5iyd5enuDr8UvHkH TPpqgAnnRghIFU8h1BhOq 04X7FiaAqrm1BzEkd0yj7 1zVFhe4R7gUL1 V7TrIPWkimozjSNyyMkyD Q5fVCZawhioTDKojM2xCK EtZ2e1UaDdTaJ5YQaeI9I sisH7ISJdpJWy VTQbaLGGaX3gixwaz6rci gkuPiPwARJiTZy8KXh7RT MazSpsZtHnHFL3QsV3ALP 1sPVfvX0uqJtp svrahY8cIem+FQE8jSGxa BZGRY2fNqmvpXJ+PHRkIH Y6lYqmEQrlVYDceP3pDIZ nO4z0KhGtKlI9 NSdcV3XwpaZ7OBDnxLQyF KSbvANTqC2cocyyl9kdrq mmXbQgYBMsJQa4SSq4TDA saWduOiBsZWZ0 EuL0ZSH3zOIfuK2dwKcze uchrE6oVwo+QmlydGggRG W6JSe8C6XyQpi5XIEopUi tKN9fyFYjYEnj Ls3sbUekzZyfMF4qQRPuw wnte870OsVbx7dlTYOxhT FzANcoOBN0Z28yl3X6EQW zPRNoUPL6mUX0 nG3jxJruldfjiQFxyIjhn jWmpUgeWPbgXZhpR535IX TktNfwDlHsPUs8E6OrNya 0HDMpgPmnMZ4l eQYkXMrjYb3bsZdpjEewT H6eLDLdreqvn102LzPuk4 vrGVLroJXbUVtpDHN7H35 ed0U1JFVmYDJr JVK4cQT8yA8jwJhxpwpdt GVmdDsgdmVydGljYWwtYW vkX602ODRzaTkdVcCwnGf 9S3XoNbr9YRMv gSfrDV6nvTZoXIbhJo1cv MyvySlhUC9fLDBdhcxgu7 14NeHuz2yjVQLjwIKnBIi vBKO2T76kv0W5 EMPuBHYnXZY0gIT6eE1fk GlnbjogbGVmdDsgdmVydG biUCbcNYrjP470JNEinCl nPlBhdGllbnQg KQhvRGl6D4XxWczbqUW+P O77BWGyWM29rERblXCuh1 uezZn5FcVzNCPuCMX3zWa uGOoqg7XoPDOx S07omPWbp4Q4JXEurEpnx VAlBsMweVS7sE0qKFggqm mnz3bcflecFizoh2wvcy7 7zH59Z64bDGlg ZHRoPSIzMCUiIHZhbGlnb y3pmW1hKq1+PMVkmKZ6xS C2mT7iNVVyGaA9FIjcU80 9InRvcCIvPjxj k4tww2dygUf3VpL6NPJbr sJitUvpUFA1q8WvAs60V4 9sIHdpZHRoPSIyMCUiIHZ lqFkiub8xlD5e Ii8+MJUagTY0yVC3jS0tC hWoNtL9ULruL220AqPcuY SzHhvlW14gL6SlsPG+PHR yPmz1HMKpeAsg ZA1hoOZfCLfmMd6jRAD0D aTvOjRjSOsuN5IuIIRjkv rfdhycxJX3MSWzABKopJ3 1Ox7svRzoPJEl tVKNaG7cxvtek5voxztcZ aBbKAOvYVb1OBc8EWFuaS hgRyRpHGA4DwG5FFY1aPC leK5nwKutumsw rC1rR7IoVQAyzyyuMb03j D2kJoSsTnO5CQvsKqt+U0 JLFXRKIfqiMCARG7mzRHv TZU86P0IyYea5 XMSpnKdeFE8fySBtAGxhC d8dhChhyVtbVC1nYBBiyy thLNIgvA0mIAIiqAStnQj lKX2rFGZfgpfe m496BeKgIXP7EBNlrIGnL 1XkgR8wKwReAXJyCTCyE5 KozEVhMOnmG038AIsfZoS 4SUHogvRsW6Lb LZTxpKkeHuV3x7G8Cw9xL a4dML6kPGX6AT51SC40eQ Xin6H7jOC7G1OpNAZgpns bigqxcXD0DQEh QUEfuD11kOYqIYatEv7tp 0J4w652JNGpNCCrkC17Lp 6yoFftIVJsxZAAlJ1pjam aw5jhikhiSlYy ABPvPHw1YSw4BCFsdZyaJ mLcGII6LnI3ANO7pWMwiS 5hjXvjohbdeO9vRuu+NTk yFLClzdX1A9Yc Khv3NZWlsWuhXT3suDTzN GlsBb8kgDfxiQfvUZ9nCT AtgkjlDPCtyP2cPBZfuLR sgIpuDN4wHHPm qepyj494BlFsBSX0ADWcw APiM7KccM0zDkLwEUVfTZ XuV0EblXClXEgzP321HUf fNmM0XTQuqySb F5TtCQWuoZtrPqA5l8E9Z k2WQPaTBT60QM82dLJch9 A0mHF6Y6KnPZFgizdyuav waBV5UMZrVLZa cW36rJFjVIlmAw4hn8X4j 144YSZbFTHjgU99Hd1onR ruCUAklJEQgV5swgopg1a vcjogIzAwMDAw DMr9EKe3ESTjdSvcUpWmO FQ8JxS4XJF6hMNunJ4rkU ssfsdzeH7zKad+M1Y2V5M kPjwvdHI+PC90 YFTlRI10zOEjjTXmd5ari Bt5NiUfOFMjIQE6gNpbMT iex1EyXPZoN95tsKJxf1M 6IGNvbGxhcHNl ThTiuYK0zK1yJSvocedtn 2dmfpmwGglvz6fmkj44zB 61Y53rIQeeYGCuLCCwKKG zSTQgcVksbv0z yB2mFx4+CWTwkHU8bLZ5f A5bJkTlAyV7IXzxA092Ie VtqNEyHyddp7ntt7wsiWg 9IjIwJSIgdmFs dOamITL1v7GiGb32L00pP HdpZHRoPSIyMCUiIHZhbG gdsg6gaI3uZv3+NT3zs3q sym35dD11dRB+ HYSsNHF8rZasSNguNYStq V7tNBdpJoH4RTXhKzVpiF 20oMOhSIsiUw2chUvfzAh pQZ6hKIWyxewq p027OmGci7foFZGyeSWuI ElvREC2L82nd4F5LIGpQX QiHWH1uFO7fK5rmPuwqak gbGVmdDsgdmVy pThsVXeaLItwI953NNFyb PrtWmMaoQAaU1flxyIFZF 1lOjwvdGQ+GVFpFEQ7wGf yMOzpRDUrcA5i NBZkC5d1YsSaBrQ8FAmpG 2RcgaZ3AWDirOHnCXQxfW TSzQ6nzhibh8ezhgthAjC gJUToTNy5BAu1 JMIgwLwuFyStOXX2EeL3N JN6rMQcaQ2kgDxwmoxvkJ 9wOyc+RklOOjwvdGQ+PHR fPER1rMagXXuu ZBPhdV7yTROlA8i0DiShO cJ2PHxkF8OeiwO5DFTomC TjKWXzdLHUzE5wrjbbj6p vcjogIzAwMDAw UWw3ZCj9GFBsiQdnUyNjE AJ4GiV8OYF5iMXsiS4vjH srfsolsC2nKzb+TVJOOjw vdGQ+PHRkIHN0 gSyqVDbsZZTxeX7zIPQpV 6x5TfDdEaK0QBteC9Qzyt O8GOMycJTaZFFkiPVEdY6 uzfhfc7xlpqci GbYrRDWxWJa8CPm6KZVny FhcOqEzOAF7RzK5IEB7yF RfmX0psSxqfggqxN6aHyo +IBJ0AVP7JQ60 WZ94D3SmArvcrHYpxOK+P HRhYmxlIHdpZHRoPScxMD CzIcNgjIfnXD4wDs1uRDV yLWNvbGxhcHNl OiB (more content not included)... [facility] Consent Formson 06-13-2024 Consent Forms [phone] [id number]#1 [facility] [place] [facility] Wound Care Note [phone] [id number]#1 [facility] [place] C[facility] Summaryon 06-07-2024 Coding Summary HTMLBase 64 RueodxapADq3lKd+PGhlY WQ+KP6JEDShB85biYZdlL 7hQ1QWCTcWFiahSKKUSTn SSiFugfRhXU9ujRYhXGWc IC8+XG3eMFBwAaagyYZwh 3C3fTO7K47mww4pKSallL R5RWZkGlVjcarib6kloNo 6IDcuNmluOyBt HYDbsN07XOT7fL57Ws25l OHmfNHhm3qaaNf4TzUkKL TqVUH0yRwzQGalv5YtQEF jO51pyODkf4A3 CHZykPitlQDzTbYxcWC3p K1cWKjmvjzpo1fewxmcUw y3ph15sWYwa7T2eUX7K3V vnyB4DUHwyLJt FpretMIOqQ1mmvvnd3pkq nxdSeXwHKHnQJw3CMv4QQ HuwEleIuIlOR30ZXT9HWW cwiNlY2DeTFLj cYleYeX5l6W8Mu2KW7EWD fqlW6MLLXNMDHjbaMT+PC 73lb13I8XsFeckAex1CIT bHZB2rED8iT2l YFHuCSwhn2N5iFA2L0Sqf aQimq8wk6alXNSiYWynQ9 6riQXkf3O6IDHwcYA2PYV lfRokWiNucR13 Oyc+LXChuCjwa7AoYissp 5zpp1kikCr6GlnrKEAhib AbhMduOFJ5w2QnEs7vBPU ozFI7mZU2lB3r LcNuTbS6AFltH661TlDbv NDnScwiT66lX4WlaEM+PH FfSbe7IKBtrNdcBF6qF5X hZGRpbmctbGVm rIkyAZ2bGSVxukosUJIkr F5iGQMiE2l8FzYvXlH6ZK ysY3OfFZYdhehtCh27hI4 pOwQkIdZ5HBfr Q5UvzjO2YCAvtYGeKDsoY XE5J61ob4N8KQFeUTCmVT O6jOF1yS9fmHqkfodmaTL mdDsgdmVydGlj NTvgQPdqH221IVKnfKilU kNvZGluZyBEYXRlOiAgMD kvMTkvMjAyNDwvdGQ+PHR cDLK4yQciEOHd sMNeHRikMh5nlXknfRwcZ F7rIJFtlepyIOMjyS9qAK OqnQWkuMocJH1zEUVlanh ti294SqHxAPY5 ZTKfxYOaQ0LoxP4sFiJyJ HZrPYIuA6SowDBeDOqdE1 62IEzjSyE7EWQxfmOoL7U sLWFsaWduOiB0 h4M2Bw7Sq2FkuahuI8Swx TFuNdAeZmsiORo6O7JxBn wvdHI+LR15RKFmZH51LRi 3ANL5pOflREpc IWYyU7MagH9vEzKnCCNpS GRkOyc+PHRhYmxlIHdpZH RoPScxMDAlJyBzdHlsZT0 hJu7xQLFbQVFu sUvckTBgJlMnt7agQKWpA KlsOM6bsKdcY3UqwMB9RO Iii7j5Ss71X57oR1CxeUM +ZHOzuKF5kXQ5 rK6eLgNlKbD9IQfaL335G hSnnGChLynsc8aqe4mmbR w0VpY7WOWjyzIipXyxDBR 8e3TwTh58O56p IHdpZHRoPSIxNSUiIHZhb Fqjlm1ncY9lYp7+PGNvbC V8kXV2uH0pZaZjDlE8OIx nE416NwEwmYHo Nqmmb9fhv9jncWs2XuKbC XGngsHqzUbsLKO1m5UgPd 24N3QeyTpmj5MvOdc5ev5 5fJUck4T1bKB2 I6YaAIKcdsegyAZzvEhkS A8oLAYbunwgEVGrnD4qVV WyY6x3IqXzTwZ9XTgsE3W onhC4GXHqtHFi UXHviQAUxF0djcqxc5cyk wpxSmJsTGIzYBf9YGx2FH PedLmlHlRmSXV5BxX3BQT 7eSQlxX7ahBag yeqjeY1hPcr+EIW3eHZdb XSGVA8oOfnznGD+PHRkIH O8zKrxAKehUJUqpD8rDSK tE9n7BoMsNqJ5 AHpoM9CjzyE9MFTvpCHcR VJzcJHVxS6emtfgh7bygm szNeXyESXxPRv8XQb7UIC saWduOiBsZWZ0 YnD6XCT2yDVyzX9jaPglu ewabH7nZaf+QmlydGggRG I8FOn5Q7XeZnm8ZMAvdVz rXV4zcKPwOYib Fe9kzDwkwKuoKJ7pIIUlq cnyj060GyMvq1joWQJmaX BnISjkPUJ7W71kq9Z0QJT dHAKwZCC0hRF2 uF9xlOcovraubVNbrHlrv uGitKwbCHtzNRezQ871AW XuyJloYrPaDIv1Z1KjUzt 8MWRkrRryBH7y jYAnMHefKb5sySxtnUmoH R8rUPWyqogry292YlFxu7 lyCJVkvEWxFLytZOW0H86 kk4P1ASMxJQFi OBE8kWQ8rT7gbMzdnhydx GVmdDsgdmVydGljYWwtYW vfW254EEGcgBrlRiOvaQc 6O4UpIdm7APNs vQsuNK4chAKuBGmjSv5ge AenfYaqDM7fYNGqeghck0 49RgSxu3ozFZMjtCIgFPj hNHC8R10yp5W0 TXNuCLVwUDJ3qYB6jH7lg GlnbjogbGVmdDsgdmVydG fqRIfzFQapL956YNQltPs nPlBhdGllbnQg IUrxEEz9Z6KwGdhzkRR+P Q05AWCwQH71sSQxbZLzz2 qsnQu6XaAwSCWxTFV9mXw fZZtrv1CoLOXi G13nzZRsx6K7UMSlrGene CQwIdCucCU1rW7iDSjhxy jly2mqzvjjNitcz0huju8 7lR18O26jZRqi ZHRoPSIzMCUiIHZhbGlnb d2zeK3uEh5+PRPscTS3jT M3xA4mKBIcSbQ6PRzhY25 9InRvcCIvPjxj m9lmq4pyjTj4VsK8XKRee fRvbFuxKMT1e9PrEg01Z9 9sIHdpZHRoPSIyMCUiIHZ uaJbeus9rhN2d Ii8+DREafAE6iBD6bE3wJ wDhFsN2YQevB937EcQudY SoOkipQ90gE2YvxZU+PHR zVys7TNLbkGma SW7flCUaNDghNi3jDBB5N cNcQiWoFSeqU3SxRUNgww bulhyykNQ4TZOtDPYohI2 3Om1hfRrwFVPk qWBVdS5ietkkp2uwazxeB dHjVKEsHCw1TZy9UVBonQ uuDsPoJTZ2CsS5VYB9gJG egP3odOxpmhok rW9iV3EcSYDypzyyLr44z F9rDpZfVtI7ZZbdJhr+U0 PWBFJSOutmYJMNU0utZYl SEM89Y5CpLnz2 MFTazCbuLR1aaIQdANmgY t1lgZimiRhuLT2aCMEigk ejNWCygH0vGPLukYInfDw lFH4zYWRffkvo r292AgCrMCT4QOOiwIQoU 0KcyC2qXyOqZGTgTQXhW5 KstXAzWUtvH043IManQpY 7MJEyrsAcB7Ay QNGniPzrFaL1w2L1Fn1rQ s6yNZ6eMVH2BA99QZ98kP Box8G3wZF9C3ApRKBhrsi bdfgxiBV7IENm ERRzjC91xQBxTLgpSs5rn 7X7x768TMIyBYBprF91Qy 5uwLzaXFGhvCGZcS3prup rd1kmimsqMdSd FNKcVDr4FDy8RVFyhIqkF gLeUBI3MnX1WLJ0oNZwjA 8euIfnxshaiJ9lQth+NTk jKCDwbkU5L7Kx Axr1EAUdqSnnVH0brEBaG FwuHs0chUhkqCvcQP4wAL UzblkyQWEswV2wKNAigRZ hhYkvKI6lWGNx dlaoq855CwAzAJF7IICub MKyS9SytK1fCvYnISApUV FkJ2OgtCZrRTqiS372HVz eFdP9GQAonqUt R7GgLXRmmBvtNfK1v5X2S y8OXEyTLA34WT32nCLjs2 A0zBE1A3FqZOUjefbggkv wiPL4DCBtNPBk yO22rBYeTUvfAl1ke8Q1m 809XKUzJXSswD81Fk5wtO acUXXcsISPbD9sjrnus9i vcjogIzAwMDAw KGk0XJd7UXMpmUnrYhBqO PS5RuL6HFP5lZKneA1oeD sgfhtnoX2kPgc+B6N0I7V kPjwvdHI+PC90 XQVpPO01lXXywTTzu5bfq Hr8IjLaNHKcFIV1vMouUS utx7VdKOSkI76zoFHss1W 6IGNvbGxhcHNl KkMmsFV1gE3fPVhoyqdor 2wbuftbHlbfp1aufl19bF 92S34nIKitJYRsIMRqDAK xCPTazHhbzr1u rR9rUp0+LNRrxHX7bAJ6k H7iRePtMtR7LBgwK352Kw MucBYkCaqbn8jvt2wujVs 9IjIwJSIgdmFs tPgzGHN2d5IvPt91E43bW HdpZHRoPSIyMCUiIHZhbG bicg0bsR7pDp1+TV8xx9e ddp77cG46fGY+ YYPrIVB6iGrvPEudMUHql G9rLIhdHjD7ATMeLtTjaF 31cXVnTHnmOn1ztFokfZm zEP0iDQAweoya y556NsSjr1slFKPrbLCiT PupLCV3N24cn3E1MSGyDM MpUPQ8vLZ9rL1teYqklgj gbGVmdDsgdmVy wLabCVqaUWxxD618CAUth LfiNeOraVDgH3anhyXXVC 1lOjwvdGQ+DFEiWDA6hAf kDRxpFWYinG2j GPRlH4y5UsUrDlJ4QRlpN 9KkxnZ2UZExqNQeKSOigW LRaW3olsbxa6ficwilQdE iTWHfXOq3QCq0 FUSwsLbsJfVgRMW2ImO0W ZP4iKWaeB6gxImtgobqiO 9wOyc+RklOOjwvdGQ+PHR mWIM0sXqqJExo MVUldY3eCGBfB0u2UvVtB xE5UWmfR2HlqoW1BOTmpD SwMVGtsZQMaJ2fxjbeu3p vcjogIzAwMDAw NZg1HXq1FDKdxPmoMhUgV SY3NjK8TQX9cHPanI9tnT obnvbriQ3nJxs+TVJOOjw vdGQ+PHRkIHN0 jZfyGInvVRHviZ8nPERzF 5f0TpGePvC6TPdsW3Rhai A7NRVjaLNtVGSjmQLIoH4 qrrxxo9ngwckj TpUqQAUfXKo1GFn2MBZvx KqnTvGbMWL4RoH0NJH1eN OygL9nsXxddtpvxE6tZcm +ZSK2PQO5FH79 PN18G5YgEmmzkOAwfBX+P HRhYmxlIHdpZHRoPScxMD EgWiHztBlyDH0yWi7bGGD yLWNvbGxhcHNl OiB (more content not included)... Normal [facility] Office/Clinic Noteon 024 Office/Clinic Note Patient: SILVIO CROWELL Age: 58 years Sex: MALE : 1965 Associated Diagnoses: Diabetes; Neck strain Author: Balwinder Miller MD A History of Present Illness 58-year-old male presents today for follow-up and management of type 2 diabetes. He is on glimepiride 4 mg twice a day. At 1 point he was on Ozempic but insurance at that time took him off the medication. He is also on Farxiga. His A1c was elevated at 11. He was surprised that it was this high although he does not monitor his blood sugars. He has recently been treated by wound care for a ulceration on his right leg and has been on multiple antibiotics. He has an appointment to see them today. Patient is also complaining of neck pain. More on the posterior aspect. Was recently treated with muscle relaxant but with no improvement. He has been putting Bengay and heat with no improvement. Denies any recent trauma. No numbness and tingling radiating down his arms. Review of Systems Constitutional: Negative. Ear/Nose/Mouth/Throat : Negative. Respiratory: Negative. Cardiovascular: Negative. Gastrointestinal: Negative. Musculoskeletal: Negative except as documented in history of present illness. Integumentary: Negative except as documented in history of present illness. Health Status Allergies: Allergic Reactions (Selected) Severe Dilaudid- No reactions were documented., Allergies (1) Active Severity Reaction Dilaudid Severe None Documented Current medications: (Selected) Prescriptions Prescribed Eliquis 5 mg oral tablet: 5 mg = 1 tab(s), PO, BID, 60 tab(s), 9 Refill(s) Farxiga 10 mg oral tablet: 1 tab(s), Oral, Daily, 30 tab(s), 11 Refill(s) glimepiride 4 mg oral tablet: See Instructions, take 1 tablet by mouth twice a day, 60 tab(s), 11 Refill(s) Documented Medications Documented Albuterol (Eqv-ProAir HFA) 90 mcg/inh inhalation aerosol: 2 puff(s), INH, q4hr (int), PRN: wheezing, 0 Refill(s) Metoprolol Tartrate 25 mg oral tablet: 25 mg = 1 tab(s), PO, BID, 180 tab(s), 0 Refill(s) Symbicort 80 mcg-4.5 mcg/inh inhalation aerosol: 2 puff(s), INH, BID, 10.2 gm, 0 Refill(s) furosemide 40 mg oral tablet: 40 mg = 1 tab(s), PO, Daily, 30 tab(s), 0 Refill(s) ranolazine 1000 mg oral tablet, extended release: 1,000 mg = 1 tab(s), Oral, BID, 60 tab(s), 0 Refill(s) Physical Examination Vital Signs 06/07/2024 10:22 EDT Peripheral Pulse Rate 66 bpm Systolic Blood Pressure 132 mmHg HI Diastolic Blood Pressure 72 mmHg BP Site Left arm SpO2 94 % Measurements from flowsheet : Measurements 06/07/2024 10:22 EDT Height 185.0 cm Height/Length Measured (inches) 72.83 in Weight 139.21 kg Weight Measured (lbs) 306.905 lb Weight Dosing 139.210 kg Body Mass Index 40.67 kg/m2 [place] Body Weight Calculated 79.52 kg BSA Measured 2.67 m2 General: Alert and oriented, No acute distress. Neck: No jugular venous distention, No lymphadenopathy, No thyromegaly. Respiratory: Lungs are clear to auscultation, Respirations are non-labored, Breath sounds are equal. Cardiovascular: Normal rate, Regular rhythm, No murmur, Good pulses equal in all extremities. Musculoskeletal Limited range of motion forward flexion lateral sidebending to the right. Some tenderness over the left cervical paraspinous muscles. No bony deformity. Strength of the upper extremities was normal.. Impression and Plan Diagnosis Diabetes ([id number] E11.9). Plan: Discussed with patient we need to get him back on Ozempic to try to get his blood sugars down. Also that he needs a follow-up better diet. Prescription for Ozempic 0.25 mg weekly was written. I did discuss with him possibility of also going on insulin therapy. He wants to hold off at this time.. Orders Orders Evaluation and Management: 65150 Office visit - established pt, Level 3 (Order): 06/07/2024 10:19 EDT, Qty: 1, Diabetes - Neck strain. Diagnosis Neck strain ([id number] S16.1XXA). Course: Will try different muscle relaxant using baclofen. Also a steroid burst. I did discuss with him the steroid burst over the next 5 days May exacerbate his blood sugars.. [Electronically Signed on: 06/07/2024 11:36 EDT] Balwinder Miller MD [Verified on: 06/07/2024 11:36 EDT] Balwinder Miller MD [facility] Coding Summaryon 06-05-2024 Coding Summary HTMLBase 64 XodxojsmDQg3nEw+PGhlY WQ+ZA5FVQHuC83gzZZrgR 4tR7ZJFKmBNxbkDKWEVYu KUoEfgwUuXJ1azQOoUCDa IC8+YQ9jSRFrOdowfUNqq 0D7xJB2D61bkp2iLNfxeF P7IJLjGiLxgujht1hkzKg 6IDcuNmluOyBt FILcbM34IML3fL37Uc05q TTsvKWcq4zyfVj5TlNqVW AgRSN9jGwmEJcfu7TbNMR uR45paINnm3J7 FGSxjHgmfMVcLvHdmCS6q E0rWHqwhdqlp7euzidyMw i4hs36kUHsn6L9dTD7A3R ljlX5CTXirJJq OthbqGKXaD5vsxxea2imb izsAxNmDILlMNk1ZZk7RN MfzFbtUrTgKX17WZW1SVV oyeYoO7RoLPPx xUkjZvF4m7E0Yc5HT9AVM dsgI9EJIWKMARqtrWA+PC 99sh47N3WfCjttNpg5JSW mTVU7eEM1gB4e RGZkAElsu5D1aKP1E8Idq rMxab5up3qgJEJrDLykZ9 3pfTCae7F6KVFafVZ9AMM xtXmdSzGfaT80 Oyc+PXFisEjzj0FiEqcyi 5vmf0asbQn2HhqxHWAxga RfcZzbESU8q5WfEa1xJQQ bmZY5hRO0eP8q MpUiSwM8IRjnG925DfOqd JDzYstvS28lF2YdyXP+PH VxJrx9ZNPphZdjPL8vM8Z hZGRpbmctbGVm mTbyAT2rIHOkuxmzXOYoy S2wAKTjM3f6XhMgQpK4UO fwJ6SvGDDerhwjLw83yY8 hHqFdMhP9EByk W6MwxoE1ZCKzcVQkEGxqT LR6Q70sj7H5GWCfYZPsSU L1eRH9oE7ycBkqrdjlzYZ mdDsgdmVydGlj MKfzQHifJ200RJScmKdqP kNvZGluZyBEYXRlOiAgMD kvMTcvMjAyNDwvdGQ+PHR nLJU1mWwiGKSq wMWnFWvuAb8anXnhvAziA A0hREPcihyyEFWjpP6uYD GuoLLgmGehOC2eHJDqukv vr618HnUcWRE6 WBFdiLBrE8NdmS4nJsRkH UXjOIAnN3RcfSMgUDnjU4 23SNdyGoG4CATqhnVwE6S sLWFsaWduOiB0 g7G4Ax3Iv6YvuaakJ9Ilh CWiQxJcDfyyRPt4F3OuQp wvdHI+AV13JJIvPD56NVa 9PKN1jDoyLEkc NOOmW5NwpC2kLsZpJGCyX GRkOyc+PHRhYmxlIHdpZH RoPScxMDAlJyBzdHlsZT0 pMz4mJLFnMXTv cJfbeGXmTzWjg8igNRJoW YkaLB3vwYpwW9HlmIN5JO Ird3n6Mi17U34uS4HavTP +KVHinEN2jTF3 jB4dKsJeDrS6ZGjaF938T dGljOImYoept8jzt7insW u5WzW0GWSpyyIpjOerVRV 1o8CoUj70X23r IHdpZHRoPSIxNSUiIHZhb Meaai1haB9wKx0+PGNvbC L6bYC2vP7tCvRmBnB8LRb yL682GaRogULn Ortei9tyh7pscOp3JyUlP YHohdYyvZajYPB4o1YbOh 13U6VitUglc5NqBfd9ca3 2hZEuf4L2oAN0 B7XyVORyubyggRLoiDxgV E7iUAKlqirdYGIvoB8aOM DgC2w8YuQoDlZ1SLzlU1D jvhR0AUBzjFPw RXWtnCRDkD9zyvbue0lfi ymvCxJdMXQkAUq9UHj0GA VjrPxuOoKpBSJ8MhQ0XVY 5dODtzR9azYte cijqeU1xFch+WNE9vCXyh NUQQR6cGreylZQ+PHRkIH J6dTcbZIqkKQMgjK3aFLX zD2e9QiSrFmM2 BGoiX7IsyqS5YQGfzJIsG ANsrKPXrJ1kxqyrk2yhrl pgPhZwUGAzEGx6ZOi3CTV saWduOiBsZWZ0 NuF6HCH2bSXdjA2pcErnz xfglG7jJbg+QmlydGggRG J2PAr9Q3EvPxe1PDBbcGk tCF8ocTQiCYpq Kh2lgLcapLcjYC7bNEMdq sjgm958XkFzx5jcCHMdqE BnVMalYNX1X77zi0G4RGA dFJKcOFB2eGM1 jJ5wxOvkxsgzlOCvqOrpq aVzhQjoJLzwZJvjE385ZG CadTcuYhHbULm8N7UpPgi 7LLYapAwzXC7g yBTeIEhnBp5fuVoxrSumX V6gFOBzortmw987WiLwr6 xgOFNonKCiQBfcSIW5K18 sl0E4PDLpWULq EUE8tJM2pA9yqEiggeatl GVmdDsgdmVydGljYWwtYW gpI753OBQhrZvdUvIgcUm 2Z7NaVeu5TUJw mCauQI4vfTSeGJyhHs5za OmlyNxyJL4rVBGzmkyjl7 35SzAub2onJAQzrNPdVGm gJSK5T72rt8M2 CACoHBGuSPL7nCL6aS6mc GlnbjogbGVmdDsgdmVydG enYVmvYCreO420WEChpJw nPlBhdGllbnQg HZmsVFy7F6UvMjppvPM+P J82SIIzXL32qNAffHGzi0 kzuJe5EuLoVBKpKWS3aPt jZQwre9QnHDRa O05jaCHyd0F6TQEouEwdi GSdSpOylIR9qT8jYQxplt qhq8iedodbGilau0gxdb8 9rP95X36tABfi ZHRoPSIzMCUiIHZhbGlnb n3frB4jHb5+PIRghNA2dW R4lK4uXVYyUqH5MXynV05 9InRvcCIvPjxj f8kpt4gcaUt0OxL7ONLcr iYtqEmnSQD4j7XxRw16Z5 9sIHdpZHRoPSIyMCUiIHZ nlLdkqy9sxX3u Ii8+KRTreRO6uDR4sP7rE zVkRnK3CFkzL901SkPwsJ ZkMypgD52gT8VdhAR+PHR oKql4DEFqjZou KT2hgXMcABavBf8nYYG2J rNeTtZkPKruZ3PcFHLcmd zelmxpzPC2QDYxKZCqgK5 2Gx1fdKkaXSGx tATBdC0bzymhs2jpbeamM hLbKIUfWCd0HPe3SPPwvQ nuRoXdRFZ3JqM0GMM1kXL rsT0gqGdggnwh mU8hV4NqNCGuumvtIb32u C4kRrIzBbB5EIoqPhu+U0 QVIIEGWdclUEHRQ6rxPPq SXS50U9SmSwm2 OBIsyFpmIO8tgJPpMEntZ u0ilAumyLlbBX6oDYMcni gsFXPaxB7vHKLifDPznDv bZH3wIARsohtq e256QsIvIOB5ORNiuYIgX 1OvzW4aWuNxKSBlIAXaZ5 VhoPBfVHzrN927BUzkRiP 5FOSsueUqR1Pv EETbxDiaRoZ8g8Y5Wu4gG l3jEO4tHWB3LT12KM03uT Gqt2D0gME6C4FaGHKlltl fgyqanUI9SDVe FMPtdK27bYPeOHjxCa1mf 0P8g711TRFyYRVhsQ27Ha 7aiZjnACCvuFFLyS9zgfp eu7gphflvPlVr KFUqQMl8MVu4SLQxoHrzC pXrERA4LlZ1FLW1dIOraE 3bnBtpjmqczE4mQpz+NTk pTMMdtqF2O6Xu Yjq9EGStkSedOE5ooAUtH BrqNh5ddMlntYigZI6fLG VdlstvEPHsfO1cUBFqlJS ysJjeNL4pCNEt tjgds814ZvGtYDM0CUDwx QJqZ0RlbC8qCiLvSYEhUL JzI7ArdSNgZHxaI791HHu cYuD9NPZshpXq A4EyJWSqiKrzKyT4d7T3M u2BYDqCGW39ZX84cZZnc6 Z9qLK0T4RxJGNsqgywtaw dgPD1KDQzDIWc fX72hGVcZUyaLo1lh7D8e 709OLToJEXftZ64Zx1ibK wpJPOhfIINuZ2biqqab3w vcjogIzAwMDAw CKb4KDc2DGKmwFkfXiPhA SF6AqE9VCR1lDVaaM7zhG ghrxewhG3pPdw+F4W8L7P kPjwvdHI+PC90 WEJnVE45fPTepGMcx9dhf Jk7UpNrDFMwBNV5vRubSF amr2KmJRTrQ20pxTZsz0N 6IGNvbGxhcHNl MtMbsJA3cI9gVBkgqtgmy 9cjfmgjYwrtv8uxbc11dN 54D48iSOcuGAMvSNGiPUV cNOSprDfrns0n kW6rYa7+JBRjxCW3uPW8b H3lWrXsVdH1GVesW624Xy LzdPXlUdqqm5zcc1moiPo 9IjIwJSIgdmFs fWzzKWO6w7GoMy18F71nT HdpZHRoPSIyMCUiIHZhbG viho8wvI5wLd6+BR0tb7y imi66xE17gHI+ JOLkEEP3sAegHNgiNHNea N4aWXkiMuE7UYHrDsIxcS 01dDVyNOlwKg9hyLxvsDc zXM0dHIPrgqhj m711ZrEwr9dxHKUjuGPpX PutLQB8W08qi5I6PHTbDY XdGQU2xQH7sT8exJgtxvl gbGVmdDsgdmVy gHjzGRkoCZwbB575GXWpp CtdKbIpzANbT9wawiEDDR 1lOjwvdGQ+GCFkLQA0bUy rURdzPMYjsP5o SAJtF6q9ByXwCcC3GCzuQ 1KgisN0EFMhrYVzMWKnzH GMnO0mfibvb5vdikmoDrA vDUPvRKn3ISe3 CEInhNoiLrDzXKU9QuC9I PS4kPXzqY3syYqkjootxQ 9wOyc+RklOOjwvdGQ+PHR wYRS9sBfnLDes NQWlfS9hPXQhU8v5UuRnL vE7ZEzrI4RevtX2AHLzcM LdHYLjoPOMtX1osprtl7f vcjogIzAwMDAw KWh0RYf3LYCzuBfpMxJjX ID5SzS4GJQ4eOEmbR8usR loibdjfY3iSny+TVJOOjw vdGQ+PHRkIHN0 yWwkWOfeSVXkrT7oOHEpL 5e6JrEeKcI8IQgzL9Pplq Q1HLJwqZUpVOWokKPRkP1 mjkqth2ntnngo HuYaFUTeQZu5DWh3CRDaw AxbCyQqXJR4QqU7FHX0kE QalN9tmVksifosuE1dVou +IPY9IFY9BV94 HM84W9ZgOyxqeKPvdLC+P HRhYmxlIHdpZHRoPScxMD CsLrUbyIirZW1oDt6bQBT yLWNvbGxhcHNl OiB (more content not included)... [facility] Wound Care Noteon 06-04-2024 Wound Care Note [id number]#1. 00OTGTIFF [facility] Coding Summaryon 05-22-2024 Coding Summary HTMLBase 64 ThhygmvxGAh6uSn+PGhlY WQ+NJ4PYYBjR45spCBhcB 3kI7UGYDpQPdwyQBVRDIs UStQyaqUkEQ1rmZChBAIg IC8+DJ9jFPLyYlvqbQJzj 6L1aBN4U51hyw8pZCjhfR O9FZKqLmOkqeegk5mlaTs 6IDcuNmluOyBt WOKkeG47WCN7nB37Wx80m BGxsAAye4nvqVf5HwOeFG SfTNI1aTjfAOwrm1EoRJS wH34taOQdf5R8 XBHplHiioYVyGwGvmIG3t K5vDFiamoswi7iykjzhPp s2db60oXQjk9G6vPW5W8G rhyN9RYWouXYg NxrsqEBCoL1kgbolm6ejm vnoMyLuMFJmLIb2RWz3GF NjuZnjFsZpCM98BWH5YFA vckBdT1PfZEDv tLijHnC4o8P1Ot1LS6PSY lqzH3TQPLQYVQjshUQ+PC 24qm26D2SnAopqPyu5IUI oOID2hQL4qA3c IPQdKRfmy1G0qEC4M4Frh kOmpe7od5tkATSsVCpfO3 3cePDdr1A3XKVvsYC9LOW wbAtaWsHyaA80 Oyc+OBEccDjxw8RkDidjx 1hta9bfzOf7IpshDIFaks SkpDojEKJ3g4AmJp2wTCT dfAB9cPO9lT7y UeRoYlY2QOnwD573UbGlt COeMzqyR84aJ7TurKQ+PH NfIqe3CEOjvMidIL7tX0F hZGRpbmctbGVm oXwlPY7yKFXftuhnXILxb B5dHCKsC9p4LdQhIzM9JO glB4MmZNQwclxrXg48zP3 jJlYxDlW5BWzt P4IzwrI6OUQbwJXsXOukD WD3J63lu3T6JEGwZTZkVV K1qJM5mO9swFmiuovqjYR mdDsgdmVydGlj ZZlfPIzkQ475CQJiqUvpS kNvZGluZyBEYXRlOiAgMD kvMDMvMjAyNDwvdGQ+PHR bJMI6oSlgBEBk gACxZFntSl2kaVsgmAxwE X8nFRPoqlcbTFOpyO3rDV PuqYExjQhjHQ7eILIbukv ox513KtZeGAY6 BJArcQGtV7BztG0gGcVfQ KSnONUiL0IsmMIiPHlaC2 57VJziSzS2MZCqhqGmR1T sLWFsaWduOiB0 q2M9Xt8Rb9WlhltfQ9Rld MWeNtBcQhvnUNl0T2MzOh wvdHI+KC55WBHuEF45POj 7KVL3iByhWFai RPOcF5XqaF8hDkKeBDMfU GRkOyc+PHRhYmxlIHdpZH RoPScxMDAlJyBzdHlsZT0 hTx0wUAGjQTWu gNpafBDyFuDis8whLNRpL UjyLG9gqVpnO1NnwPU8BP Ibr5v5Ar28Z63wT9YesHP +XNLrfZH6bIK9 gA2oEcRbRsS8BVpdQ081P yFmzFZzYxmzn3lrg6tatN i5ZyY1GZHiqyDwnCxoGVJ 0t9DdUb40Q19n IHdpZHRoPSIxNSUiIHZhb Mmuoj7umS7jCc8+PGNvbC R0nMT9mI8iInBeQeT3AMi nY356DkWhoYAg Kiopn0foq7rwlPr1StZeC MIckmGpbFglJEP1n4JmYg 46V3EwtDezs4QkQqr8kt5 4tIAvs9S4wQU0 K2ZcHJRcazhhoMNzaBfyT L2cNCWmwesiHJCdxZ0sKT MsR5j9LoFiLxN9CNrbA8O bcrM2EFEhnVFz VYSelWDOiA5iantnc4fdc zdmMiCdLHJlJIs3BTc0MB GhvRzdYgSnXKT6JeZ9NRJ 2uIArwJ2tmJbl dgvlvB0eJly+BCH9jGQvt IGMJR4bOkvmuSO+PHRkIH J4dRnxBLosOIZxsM6cWWR uA6h9UkBtRcX5 SFrbR5RlofG5UTOqrBBqX QTkqINIsO6syclvc6iwem cxDsUyALPzQQb7AGh7FWM saWduOiBsZWZ0 XpV5AFB5cYSauP9aqVvqs tcvqW3pLyh+QmlydGggRG H5CDp4Q4BfMmj6QGLnzJo eWO9psZJjOQkt Ia3koMgdcYsaCQ1eYZVhx vkzy250MrSdo3xtMGItnJ JnXNemOSP7I79ut3O2OHK oCDWxGPL5xPK1 rT7fmMrqsawoqUWenEgcn tGugPhxFAouJYxaT356JU UozAijQlAiMQd8E2ZwXak 3AFLbnGbuVQ2w lVDtCNbbIj0bwFsldMprX C9uKIPjgzmzt313KtWwi2 szZFCyqQWgFCkmFLK4U77 tt1R2YZOfYEWn SIQ8mBN7uO4imEkpnmvyd GVmdDsgdmVydGljYWwtYW ixM980YQFzuAodVzRjlDe 5N0TzLhg6ZYMf cQrxNJ8ryJSqJDbnBt1vi JjmyCzwOD4yQMPeixkgw6 64XkXxc9jtNVXpmIBdJLu vTCF8H82mk9S1 ZJJuYYNwFZA0sXX4kV3ew GlnbjogbGVmdDsgdmVydG nhWOmzYVngV257QVWgxZo nPlBhdGllbnQg YUkyIXo5T9CdHnduaOO+P N96NNTpJB43nPKxiVQhm2 zqxBl0EgNwVIFqTAH2qSh sBAzfx0HqUFXd I34vbOSwm2I7BECyyGswk NYvUvWmpUQ1nJ1qLVsuna ufl6dowusbKydgh6qvcq2 6oG64U51aJDgj ZHRoPSIzMCUiIHZhbGlnb t1woQ0hSu2+CPBmnPL2mY X3jI4yIKPcRaP7KSacL17 9InRvcCIvPjxj v3eug5kjqYu6ZwM9YXTjc uQheSttOSH2e3LcNw96U9 9sIHdpZHRoPSIyMCUiIHZ orGrfbv7blI0y Ii8+JGOiaCH3tFS3gS2qY cWzCiK6WCmhQ175ZaIzcB IhFdxyN14lQ5QakRC+PHR sBgh8MLJxyJxg CG9pjDOpEOawFg9pGCR5P pVpLgWiFLqgG0LsDIRfny ysryerfHW7THFeYQLzlS5 1Ib6fgVcoXXMd xMBRfN1amlbyw4mbjrwsI tZoQJMmOZd7BWj1AIRxjN nkHwEeOME1VtN1PER5zCW tuQ6keClwrmtm jN6zN6PfIEJqlphnBb54p Z6hFxMiCmS8DKrwWea+U0 IVNNOJXyetOZTCN9byDKe OMN15R0AwYih6 CWXgaWoxWF2arCJsNJqbY i3haGhwhVdvDU7lURZxet ldFLJhuC7zKVQztXSptAz fEU6zAWGtyjqw h953DbYiUUO8UAFxdBUeM 5ZhmA6aHyNnQOPtYRDsH6 GibROcHOssW633FUxxKpM 0QSBlthYoF7Uu KQPifRtzDmL1v1E3Ew3qD t6uNY4fYUJ8RH93GT39eX Sbs7V4eYH5R8SjNSSqdnx htkexaLF4UMHw FRMpeR03zTHnIQtzMk0fv 3O6l203WFPfRQRvgR29Oq 9zaPeaKZUmvXYRkJ8kyrr pu9wphyjdCnKa LBEwQHc2FGj7DJGmvSssE eMfPRB5DrS5GTJ5jDPqzB 0xeQjxoubvzW7sKnd+NTk tESWheqB2M1Vd Qfb3OOLlkCljFW4kvWCwU OhsRg3vjPnbbEfgXI9dSO TvchmjEQWdvU5vJLNytNM cvLwpBT9zVFNh gmchb182LvZgWKR1WQAuo SQcK6XdnC1mKpUuOVVgRX MrT7KhxEEiYNydX584JKu zEmZ8UYBsgyOv S3PfCHAlkDheFfV0j0O6B i7RFOgBDS37NA37mDQwq0 C8dPV9A0CtWXQxrataxbz pySR2QYFoRWHl bF44oEFjULloFy1pt8P2f 673YCTxMHIdyW05Dd0dxZ ouNHSelFUDbM3gnfdnn5v vcjogIzAwMDAw MAa2BFl4XVEqeQxwDbRmD II4PiJ2DJP3yHDmtU5beR znfdpvtZ3nNnj+G9W8F1S kPjwvdHI+PC90 XKRxYA49fTVizQDhe1sby Qn5LcMcSARmHTI5ePzrXM sak2ZqVCRwM62tkXXfp8O 6IGNvbGxhcHNl IrFkcFD3mZ9pILlfydipg 4orhwyrTqanv0avpg12uU 78Z36dVLefNGBlWBTdCEY mACCpbVetjn8a oI8pJf4+BRSroTT4kAZ9f B0eNyQpZlR9SFchD781Ur EwvRMpDfepa5qsa6vxmCn 9IjIwJSIgdmFs hCynUCM9p3GeWp85V79aJ HdpZHRoPSIyMCUiIHZhbG insh5bfP5kBf6+AK9se8a xfw99nD84rYJ+ ZVYqHLK7pCpvGEdxQNQui S0aSBwdGgE2UDLdVgZlvM 64eHTuCTqsDx6vnVgujYl hKM0xLTNsrdky p418TlOpp9aoOILnuDScP VohXIK3G80xy9S5WGLvUM UnUOC0nAB3jZ7wrGdxrhn gbGVmdDsgdmVy dMfwLNmpDBztQ522KGNhf JlnOcLquHEjD7skgnGBUJ 1lOjwvdGQ+RLIxEUX1xOl vNEtiZRSqzD0v EZHkN0w1BnOkYnJ8CLahE 8CpvmO3MTGdrFTlRCSryJ GOuM6znkloq0ylsdtjEtK nOSHjENm0FXh1 NCYmdWijYvSyVSP4IwM0L JQ0qGNqgM4hcNpoorquaM 9wOyc+RklOOjwvdGQ+PHR bPWG0eBtzPZhp QEEleL3aWAJnW1q3JzSeR oW9RHdmX2TmyfM2TPSftE OdXHIazGGQwX8rkmdcv5s vcjogIzAwMDAw NAz9WXx3LKSqjCdjDoUtW XR3WzJ8GNG4sBSbkS0quG iwkgxzoX2dBup+TVJOOjw vdGQ+PHRkIHN0 cYxaUMzbLDVfjP1kPLHxC 2r9EqTrFdZ3JBjjV9Inlp W5TTHtvQSdFKYfhBDYbB9 nfawzo6rdlndn AhGvOENcYVf5XGf3IXWdo VosNdEiOZI2UkM1WJP1vV ObcW3keZqjlqaluE5oAnd +LCU6SRD6HM45 KW77U7IhSnvgnODssBT+P HRhYmxlIHdpZHRoPScxMD VaBjAabVkaUM5lKy4xHGS yLWNvbGxhcHNl OiB (more content not included)... [facility] Wound Care Noteon 05-22-2024 Wound Care Note [id number]#1. 00OTGTIFF [facility] Coding Queryon 05-17-2024 Coding Query I just wanted to double check that your final diagnosis of diabetic coma is correct? Can you please review and revise however you deem appropriate? Thanks. [Electronically Signed on: 06/25/2024 11:34 EDT] Kimberly Jones MD [Verified on: 06/25/2024 11:34 EDT] Kimberly Jones MD [Transcribed on: 05/17/2024 11:25 EDT] [facility] .Auto Diff 105-11-2024 Auto Nolan % 8 % Normal 09-30 [facility] Comment on above: Performed By: #### 2 [id number], [id number], 4777784, 76257888, 3635267, [id number] ####[facility] (DEFAULT)[address] [place] [address] Baso Abs# 0.1 x10 Normal 0.0-0.2 [facility] Comment on above: Performed By: #### 2 [id number], 3703194, 8119097, 00688832, 0685557, [id number] ####[facility] (DEFAULT)[address] [place] [address] 52815 Basophils/100 WBC (Bld) 1.3 % Normal 0.2-2.0 [facility] Comment on above: Performed By: #### 2 [id number], 9259536, 8615103, 41335214, 1198385, [id number] ####[facility] (DEFAULT)[address] [place] [address] Eos Abs# 0.2 x10 Normal 0.0-0.4 [facility] Comment on above: Performed By: #### 2 [id number], 1666146, 4090244, 02321211, 0903429, [id number] ####[facility] (DEFAULT)[address] [place] [address] 27252 Eosinophils/100 WBC (Bld) 4.3 % High 0.9-4.0 [facility] Comment on above: Performed By: #### 2 [id number], 5361180, 4880883, 54801329, 6830920, [id number] ####[facility] (DEFAULT)[address] [place] [address] 61410 Lymph Abs# 1.3 x10 Normal 1.3-2.9 [facility] Comment on above: Performed By: #### 2 [id number], 7076957, 4474939, 29989317, 8298403, [id number] ####[facility] (DEFAULT)[address] [place] [address] 43320 Lymphocytes/100 WBC (Bld) 24 % Normal 14-48 [facility] Comment on above: Performed By: #### 2 [id number], 5799237, 2932283, 96285328, 9923206, [id number] ####[facility] (DEFAULT)[address] [place] [address] 23392 Nolan Abs# 0.4 x10 Normal 0.0-0.8 [facility] Comment on above: Performed By: #### 2 [id number], 0311687, 8179529, 59571357, 7813653, [id number] ####[facility] (DEFAULT)[address] [place] [address] Neut Abs# 3.4 x10 Normal 1.5-9.2 [facility] Comment on above: Performed By: #### 2 [id number], 1487566, 5501468, 17627097, 8619806, [id number] ####[facility] (DEFAULT)[address] [place] [address] Neutrophils/100 WBC (Bld) 62 % Normal 44-88 [facility] Comment on above: Performed By: #### 2 [id number], 0440591, 1895432, 73104620, 0171991, [id number] ####[facility] (DEFAULT)[address] [place] [address] Standardon 05-11-2024 Breakpoint Chem Normal [facility] Comment on above: Performed By: #### 2 [id number], 9957015, 9894432, 34809025, 7658817, [id number] ####[facility] (DEFAULT)[address] [place] [address] eGFR Non AA 36 mL/min/1.73m2 Invalid Interpretation Code [facility] Comment on above: Performed By: #### 2 [id number], 5010798, 6757704, 22617925, 8970908, [id number] ####[facility] (DEFAULT)[address] [place] [address] eGFR AA 43 mL/min/1.73m2 Invalid Interpretation Code [facility] Comment on above: Performed By: #### 2 [id number], 6470364, 5880154, 08281399, 3072409, [id number] ####[facility] (DEFAULT)[address] [place] [address] Anion gap [Moles/Vol] 11.4 mmol/L Normal 5.0-19.0 [facility] Comment on above: Performed By: #### 2 [id number], 7156884, 7786641, 07213077, 4067979, [id number] ####[facility] (DEFAULT)[address] [place] [address] 25337 Calcium [Mass/Vol] 8.4 mg/dL Low 8.9-10.3 [facility] Comment on above: Performed By: #### 2 [id number], 6360666, 4861991, 32590469, 5616078, [id number] ####[facility] (DEFAULT)[address] [place] [address] Chloride [Moles/Vol] 101 mmol/L Normal 101-111 [facility] Comment on above: Performed By: #### 2 [id number], 2027884, 0706620, 24893001, 0821027, [id number] ####[facility] (DEFAULT)[address] [place] [address] CO2 [Moles/Vol] 26 mmol/L Normal 21-32 [facility] Comment on above: Performed By: #### 2 [id number], 4061069, 8077272, 06278025, 7140026, [id number] ####[facility] (DEFAULT)[address] [place] [address] 83132 Creatinine [Mass/Vol] 1.93 mg/dL High 0.90-1.30 [facility] Comment on above: Performed By: #### 2 [id number], 1865507, 1518783, 72689986, 8870240, [id number] ####[facility] (DEFAULT)[address] [place] [address] Glucose [Mass/Vol] 337.0 mg/dL High 74.0-118.0 [facility] Comment on above: Performed By: #### 2 [id number], 0557417, 1633341, 19647857, 1783197, [id number] ####[facility] (DEFAULT)[address] [place] [address] 86088 Osmolality 291 mOsm/L Invalid Interpretation Code [facility] Comment on above: Performed By: #### 2 [id number], 8942553, 5737317, 67864659, 4970608, [id number] ####[facility] (DEFAULT)[address] [place] [address] 22049 Potassium [Moles/Vol] 4.4 mmol/L Normal 3.6-5.1 [facility] Comment on above: Performed By: #### 2 [id number], 4031835, 9851839, 31392838, 1426200, [id number] ####[facility] (DEFAULT)[address] [place] [address] 17558 Sodium [Moles/Vol] 134.0 mmol/L Low 136.0-144.0 [facility] Comment on above: Performed By: #### 2 [id number], 8402371, 1167504, 69016035, 1103229, [id number] ####[facility] (DEFAULT)[address] [place] [address] 22871 Urea nitrogen [Mass/Vol] 40 mg/dL High 8-26 [facility] Comment on above: Performed By: #### 2 [id number], 2648338, 4191368, 26435336, 3516725, 1733333958 ####[facility] (DEFAULT)[address] [place] [address] 57224 Urea nitrogen/Creatinine [Mass ratio] 20.7 mg/mg High 4.6-16.2 [facility] Comment on above: Performed By: #### 2 [id number], 5518147, 1020022, 73262866, 7323879, [id number] ####[facility] (DEFAULT)[address] [place] [address] 66250 CBC w/ Auto Diffon 4 Erythrocyte distribution width (RBC) [Ratio] 14.0 % Normal 11.5-15.0 [facility] Comment on above: Performed By: #### 2 [id number], 9903264, 1786312, 09066984, 0971055, [id number] ####[facility] (DEFAULT)[address] [place] [address] 88050 Hematocrit (Bld) [Volume fraction] 43.5 % Normal 34.8-51.9 [facility] Comment on above: Performed By: #### 2 [id number], 6995926, 0033181, 91301136, 1987952, [id number] ####[facility] (DEFAULT)[address] [place] [address] 46558 Hemoglobin (Bld) [Mass/Vol] 14.3 g/dL Normal 11.8-17.7 [facility] Comment on above: Performed By: #### 2 [id number], 1892076, 4584083, 26233398, 6938437, [id number] ####[facility] (DEFAULT)[address] [place] [address] 54608 MCH (RBC) [Entitic mass] 30 pg Normal 24-34 [facility] Comment on above: Performed By: #### 2 [id number], 8424029, 8263069, 23447091, 5211032, [id number] ####[facility] (DEFAULT)[address] [place] [address] 37814 MCHC (RBC) [Mass/Vol] 33 g/dL Normal 26-37 [facility] Comment on above: Performed By: #### 2 147447615, 5482626, 3804595, 33658581, 2243703, [id number] ####[facility] (DEFAULT)[address] [place] [address] 78217 MCV (RBC) [Entitic vol] 93 fL Normal 81-100 [facility] Comment on above: Performed By: #### 2 [id number], [id number], 0921453, [id number], [id number], [id number] ####[facility] (DEFAULT)[address] [place] [address] 86191 Platelet 185 x10 Normal 138-427 [facility] Comment on above: Performed By: #### 2 [id number], [id number], 5242414, [id number], [id number], [id number] ####[facility] (DEFAULT)[address] [place] [address]102 Platelet mean volume (Bld) [Entitic vol] 7.9 fL Normal 6.3-10.2 [facility] Comment on above: Performed By: #### 2 [id number], 9650511, 4479340, [id number], 6139048, [id number] ####[facility] (DEFAULT)[address] [place] [address] RBC 4.70 x10 Normal 3.70-5.30 [facility] Comment on above: Performed By: #### 2 [id number], 9473399, 1725764, 37082363, 6119258, [id number] ####[facility] (DEFAULT)[address] [place] [address] WBC 5.4 x10 Normal 3.5-10.5 [facility] Comment on above: Performed By: #### 2 [id number], [id number], 8526379, 58598953, 5408123, [id number] ####[facility] (DEFAULT)[address] [place] [address]28 Man Diff? Auto Invalid Interpretation Code [facility] Comment on above: Performed By: #### 2 [id number], 8865062, 6208185, 55069479, 6059212, [id number] ####[facility] (DEFAULT)[address] [place] [address] CRPon 05-11-2024 CRP 1.6 mg/dL High <=0.5 [facility] Comment on above: Performed By: #### 2 [id number], [id number], 6920704, 32329194, 9396796, [id number] ####[facility] (DEFAULT)[address] [place] [address] ED Clinical Summaryon 2023 ED Clinical Summary [facility] - Emergency Department [address] [place] [address] ED Clinical Summary PERSON INFORMATION Name: SILVIO CROWELL Age: 58 Years Sex: MALE : 1965 MRN: Acct#: Visit Reason: Wound infection; WOUND CARE Arrival: 05/11/2024 14:45:07 Discharge: 05/11/2024 18:02:00 LOS: 000 03:17 Check In: 05/11/2024 14:45:07 Checkout:05/11/2024 18:02:00 Address: [address] [place] [address] PCP: Balwinder Miller MD PROVIDER INFORMATION Provider Role Assigned Unassigned Kimberly Jones MD ED Provider 05/11/2024 14:47:09 Roberto December LAND INSPECTOR Nurse 05/11/2024 15:07:27 VITALS INFORMATION Vital Sign Triage Latest Temperature Tympanic Temperature Temporal Artery Pulse Rate O2 Sat 93 % 94 % Respiratory Rate 16 br/min 17 br/min Blood Pressure /75 mmHg /75 mmHg MEDICAL INFORMATION Medications Given: Allergy Information: Dilaudid PHYSICIAN DOCUMENTATION DISCHARGE INFORMATION: Discharge Disposition: Home Discharge Location: Home PATIENT EDUCATION INFORMATION Instructions: Wound Infection; Chronic Venous Insufficiency Follow-Up: With: Address: When: Balwinder Miller MD [address] [place] [address] Within 3 to 5 days DIAGNOSIS: 1:Chronic venous stasis; 2:Diabetic coma Patient Understands: Yes - Patient/family/caregi shalini verbalizes understanding of instructions given Comment: Normal [facility] ED Clinical Summary [facility] ? Urgent Care [address] [place] [address] Clinical Summary PERSON INFORMATION Name: SILVIO CROWELL Age: 58 Years Sex: MALE : 1965 MRN: Acct#: Visit Reason: Skin problem; WOUND EVAL Arrival: 05/11/2024 14:13:36 Discharge: 05/11/2024 14:40:00 LOS: 000 00:27 Check In: 05/11/2024 14:13:36 Checkout: 05/11/2024 14:40:00 Address: [address] [place] [address] PCP: Balwinder Miller MD PROVIDER INFORMATION Provider Role Assigned Unassigned Ian Lynn ED 05/11/2024 14:18:35 Audelia Pool LAND INSPECTOR Nurse 05/11/2024 14:30:10 VITALS INFORMATION Vital Sign Triage Latest Temperature Tympanic Temperature Temporal Artery Pulse Rate O2 Sat 94 % 94 % Respiratory Rate Blood Pressure /82 mmHg /82 mmHg MEDICAL INFORMATION Medications Given: Allergy Information: Dilaudid PHYSICIAN DOCUMENTATION DISCHARGE INFORMATION: Discharge Disposition: Home Discharge Location: Home PATIENT EDUCATION INFORMATION Instructions: Follow-Up: DIAGNOSIS: 1:Nonhealing nonsurgical wound with fat layer exposed.; 2:Cellulitis of right lower extremity Patient Understands: Comment: Normal [facility] ED Patient Summaryon 024 ED Patient Summary [facility] - Emergency Department [address] [place] [address] PATIENT DISCHARGE INSTRUCTIONS Patient Information Name: SILVIO CROWELL Age: 58 Years Date of : 1965 Reason For Visit: Wound infection; WOUND CARE Arrival Time: 05/11/2024 14:45:07 Primary Care Physician: Balwinder Miller MD Attending Physician: Kimberly Jones MD Comment: Visit Diagnosis: Diagnoses This Visit Chronic venous stasis (I87.8) Diabetic coma (E11.69) Wound infection (418311894) The [facility] is open Tuesday through Tuesday from 9A to 6P and Tuesday and Tuesday from 9A to 5P Prescription Information: If you have been given a prescription for narcotics, seek immediate medical attention if you have any difficulty breathing or any sudden status changes such as confusion and sleepiness. If you or anyone you know is experiencing suicidal thoughts, mental health, alcohol and/or drug addiction problems; contact the [facility] 11/04 Crisis Hotline -Text 8OCGC sw [phone]. If you received any narcotics, sedation, or any other medication that causes drowsiness for the next 24 hours, unless otherwise directed: ? Do not drive a car. ? Do not operate machinery such as power tools, lawn mowers, drills, sewing machines, or stoves ? Avoid alcoholic beverages and drugs for allergies, nerves, or sleep ? Do not make important personal or business decisions or sign any legal documents With: Address: When: Paul WORLEY, Balwinder Gauthier [address] [place] [id number] Within 3 to 5 days Medication Information: The exam and treatment you received today in the [facility] Emergency Department were for an urgent problem and are not intended as complete care. It is important for you to follow up with a doctor, nurse practitioner, or physician?s academic support assistant for ongoing care. If your symptoms become worse or you do not improve as expected and you are unable to reach your usual health care provider, you should return to the Emergency Department, we are available 24 hours a day. For those patients who have received Radiology results, the interpretation of your X-ray as given to you by our Emergency Department physician is only a preliminary report. The Radiologist will review your films and if there is a change in the diagnosis you will be notified by phone. Please make sure you have provided a working phone number so we can reach you if necessary. In the event that you had a lab culture while you were a patient in the Emergency Department, you will be notified by phone if there is a need to change your antibiotic. Please make sure you have provided a working phone number so we can reach you if necessary. [facility] Emergency Department has provided you with a complete list of medications post discharge. Please inform your freelance art director/provider of your visit and for further instruction on these medications. Any specific questions regarding your chronic medications and dosages should be discussed with your primary care physician(s) and/or pharmacist. New Medications [facility] [id number], [address] [place], [place] [id number], [phone] cephalexin (cephalexin 500 mg oral capsule) 1 cap(s) Oral (given by mouth) 4 times a day for 7 Days. Refills: 0. sulfamethoxazole-trim ethoprim (Bactrim DS 800 mg-160 mg oral tablet) 1 tab(s) Oral (given by mouth) 2 times per day for 7 Days. Refills: 0. Additional medications on your home medication list not specifically addressed. Please contact the ordering physician if you have questions about these medications. albuterol (Albuterol (Eqv-ProAir HFA) 90 mcg/inh inhalation aerosol) 2 puff(s) Inhale (breathe in) every 4 hours as needed wheezing. apixaban (Eliquis 5 mg oral tablet) 1 tab(s) Oral (given by mouth) 2 times per day. Refills: 9. budesonide-formoterol (Symbicort 80 mcg-4.5 mcg/inh inhalation aerosol) 2 puff(s) Inhale (breathe in) 2 times per day. dapagliflozin (Farxiga 10 mg oral tablet) 1 tab(s) Oral (given by mouth) every day. Refills: 11. furosemide (furosemide 40 mg oral tablet) 1 tab(s) Oral (given by mouth) every day. glimepiride (glimepiride 4 mg oral tablet) take 1 tablet by mouth twice a day. Refills: 11. metoprolol (Metoprolol Tartrate 25 mg oral tablet) 1 tab(s) Oral (given by mouth) 2 times per day. ranolazine (ranolazine 1000 mg oral tablet, extended release) 1 tab(s) Oral (given by mouth) 2 times per day. Visit Information Allergies: Substance Reaction Symptoms Type Comments Dilaudid Drug Vital Signs: Vitals and Measurements this Visit (last charted value for your 05/11/2024 visit) Vital Signs This Visit Temperature Oral: 36.4 DegC Heart Rate Monitored: 78 bpm Respiratory Rate: 17 br/min Systolic Blood Pressure: 136 mmHg Diastolic Blood Pressure: 71 mmHg SpO2: 94 % Oxygen Therapy: Room air Measu (more content not included)... Normal [facility] ED Patient Summary [facility] ? Urgent Care [address] [place] [address] PATIENT DISCHARGE INSTRUCTIONS Patient Information Name: SILVIO CROWELL Age: 58 Years Date of : 1965 Reason For Visit: Skin problem; WOUND EVAL Arrival Time: 05/11/2024 14:13:36 Primary Care Physician: Balwinder Miller MD Attending Physician: Ian Lynn Comment: Patient Education Medication Information: The exam and treatment you received today in the [facility] were for an urgent problem and are not intended as complete care. It is important for you to follow up with a doctor, nurse practitioner, or physician?s academic support assistant for ongoing care. If your symptoms become worse or you do not improve as expected and you are unable to reach your usual health care provider, you should return to the Emergency Department, we are available 24 hours a day. For those patients who have received Radiology results, the interpretation of your X-ray as given to you by our Emergency Department physician is only a preliminary report. The Radiologist will review your films and if there is a change in the diagnosis you will be notified by phone. Please make sure you have provided a working phone number so we can reach you if necessary. In the event that you had a lab culture while you were a patient in the Emergency Department, you will be notified by phone if there is a need to change your antibiotic. Please make sure you have provided a working phone number so we can reach you if necessary. [facility] Emergency Department has provided you with a complete list of medications post discharge. Please inform your freelance art director/provider of your visit and for further instruction on these medications. Any specific questions regarding your chronic medications and dosages should be discussed with your primary care physician(s) and/or pharmacist. Medications to Continue That Have Not Changed Other Medications albuterol (Albuterol (Eqv-ProAir HFA) 90 mcg/inh inhalation aerosol) 2 puff(s) Inhale (breathe in) every 4 hours as needed wheezing. apixaban (Eliquis 5 mg oral tablet) 1 tab(s) Oral (given by mouth) 2 times per day. Refills: 9. budesonide-formoterol (Symbicort 80 mcg-4.5 mcg/inh inhalation aerosol) 2 puff(s) Inhale (breathe in) 2 times per day. dapagliflozin (Farxiga 10 mg oral tablet) 1 tab(s) Oral (given by mouth) every day. Refills: 11. furosemide (furosemide 40 mg oral tablet) 1 tab(s) Oral (given by mouth) every day. glimepiride (glimepiride 4 mg oral tablet) take 1 tablet by mouth twice a day. Refills: 11. metoprolol (Metoprolol Tartrate 25 mg oral tablet) 1 tab(s) Oral (given by mouth) 2 times per day. ranolazine (ranolazine 1000 mg oral tablet, extended release) 1 tab(s) Oral (given by mouth) 2 times per day. Visit Information Visit Diagnosis: Diagnoses This Visit Cellulitis of right lower extremity (L03.115) Nonhealing nonsurgical wound with fat layer exposed. (T14.8XXA) Skin problem ([id number]) If you received any narcotics, sedation, or any other medication that causes drowsiness for the next 24 hours, unless otherwise directed: ? Do not drive a car. ? Do not operate machinery such as power tools, lawn mowers, drills, sewing machines, or stoves ? Avoid alcoholic beverages and drugs for allergies, nerves, or sleep ? Do not make important personal or business decisions or sign any legal documents Reason for Visit: wound right lower leg martinez area that measures with redness approx 17x9cm says it started wtih stasis blisters. he had it dressed wtih telfa and spandex held in place with coban that was wrapped too tightly and we had to cut it off Allergies: Substance Reaction Symptoms Type Comments Dilaudid Drug Vital Signs: Vitals and Measurements this Visit (last charted value for your 05/11/2024 visit) Vital Signs This Visit Temperature Temporal: 36.7 DegC Peripheral Pulse Rate: 73 bpm Respiratory Rate: 16 br/min Systolic Blood Pressure: 173 mmHg Diastolic Blood Pressure: 82 mmHg SpO2: 94 % Oxygen Therapy: Room air Blood Pressure Method: Automatic Measurements This Visit Height/Length Measured: 185.42 cm Weight Measured: 89.81 kg Weight Dosin.810 kg Body Mass Index: 26.12 kg/m2 BSA Measured: 2.15 m2 Problems List: Problem Onset Comments B12 deficiency CAD (coronary artery disease) CHF (congestive heart failure) COPD Depression Diabetes Diabetic neuropathy Disease of kidney HTN (hypertension) Impaired left ventricular function 07/12/18 Outside Source Comment: Overview: - - 40-45% per echo 03/2018 NIDDM Oral thrush Pedal edema Stasis dermatitis of lower extremity due to chronic peripheral vascular hypertension Major Tests and Procedures: The following procedures and tests were performed during y (more content not included)... Normal [facility] Extra [place] 05-11-2024 Tube Collected Yes Invalid Interpretation Code [facility] Comment on above: Performed By: #### 2 [id number] ####[facility] (DEFAULT)[address] [place] [address] Sed Rateon 05-11-2024 Sed Rate 33 mm/hr High 0-15 [facility] Comment on above: Performed By: #### 2 [id number] ####[facility] (DEFAULT)[address] [place] [address] Urgent Care [place] 024 Urgent Care Record [facility] ? Urgent Care [address] [place] [id number] PATIENT DISCHARGE INSTRUCTIONS Patient Information Name: SILVIO CROWELL Age: 58 Years Date of : 1965 Reason For Visit: WOUND EVAL Arrival Time: 05/11/2024 14:13:36 Primary Care Physician: Balwinder Miller MD Attending Physician: Ian Lynn Comment: Visit Diagnosis: Diagnoses This Visit Cellulitis of right lower extremity (L03.115) Nonhealing nonsurgical wound with fat layer exposed. (T14.8XXA) If you received any narcotics, sedation, or any other medication that causes drowsiness for the next 24 hours, unless otherwise directed: ? Do not drive a car. ? Do not operate machinery such as power tools, lawn mowers, drills, sewing machines, or stoves ? Avoid alcoholic beverages and drugs for allergies, nerves, or sleep ? Do not make important personal or business decisions or sign any legal documents Medication Information: The exam and treatment you received today in the [facility] were for an urgent problem and are not intended as complete care. It is important for you to follow up with a doctor, nurse practitioner, or physician?s academic support assistant for ongoing care. If your symptoms become worse or you do not improve as expected and you are unable to reach your usual health care provider, you should return to the Emergency Department, we are available 24 hours a day. For those patients who have received Radiology results, the interpretation of your X-ray as given to you by our Urgent Care physician is only a preliminary report. The Radiologist will review your films and if there is a change in the diagnosis you will be notified by phone. Please make sure you have provided a working phone number so we can reach you if necessary. In the event that you had a lab culture while you were a patient in the Urgent Care, you will be notified by phone if there is a need to change your antibiotic. Please make sure you have provided a working phone number so we can reach you if necessary. [facility] Ur[facility] Care has provided you with a complete list of medications post discharge. Please inform your freelance art director/provider of your visit and for further instruction on these medications. Any specific questions regarding your chronic medications and dosages should be discussed with your primary care physician(s) and/or pharmacist. Medications to Continue That Have Not Changed Other Medications albuterol (Albuterol (Eqv-ProAir HFA) 90 mcg/inh inhalation aerosol) 2 puff(s) Inhale (breathe in) every 4 hours as needed wheezing. apixaban (Eliquis 5 mg oral tablet) 1 tab(s) Oral (given by mouth) 2 times per day. Refills: 9. budesonide-formoterol (Symbicort 80 mcg-4.5 mcg/inh inhalation aerosol) 2 puff(s) Inhale (breathe in) 2 times per day. dapagliflozin (Farxiga 10 mg oral tablet) 1 tab(s) Oral (given by mouth) every day. Refills: 11. furosemide (furosemide 40 mg oral tablet) 1 tab(s) Oral (given by mouth) every day. glimepiride (glimepiride 4 mg oral tablet) take 1 tablet by mouth twice a day. Refills: 11. ketoconazole (ketoconazole 200 mg oral tablet) 1 tab(s) Oral (given by mouth) every day for 5 Days. Refills: 0. metoprolol (Metoprolol Tartrate 25 mg oral tablet) 1 tab(s) Oral (given by mouth) 2 times per day. miconazole topical (miconazole 2% topical cream) 1 randee Topical (on the skin) 2 times per day. apply for 7-10 days. Refills: 0. ranolazine (ranolazine 1000 mg oral tablet, extended release) 1 tab(s) Oral (given by mouth) 2 times per day. sildenafil (sildenafil 20 mg oral tablet) take 2-5 tabs 30 min before activity.. Refills: 6. Visit Information Allergies: Substance Reaction Symptoms Type Comments Dilaudid Drug Vital Signs: Vitals and Measurements this Visit (last charted value for your 05/11/2024 visit) No vitals and measurements documented Problems List: Problem Onset Comments B12 deficiency CAD (coronary artery disease) CHF (congestive heart failure) COPD Depression Diabetes Diabetic neuropathy Disease of kidney HTN (hypertension) Impaired left ventricular function 07/12/18 Outside Source Comment: Overview: - - 40-45% per echo 03/2018 NIDDM Oral thrush Pedal edema Stasis dermatitis of lower extremity due to chronic peripheral vascular hypertension Patient Education Viruses or Bacteria What?s got you sick? Antibiotics only treat bacterial infections. Viral illnesses cannot be treated with antibiotics. When an antibiotic is not prescribed, ask your healthcare professional for tips on how to relieve symptoms and feel better. Usual Cause Illness Viruses Bacteria Antibiotic Needed Cold/Runny Nose NO Bronchitis/Chest Cold (in otherwise healthy children and adults) NO Whooping Cough Yes Flu NO Strep Throat Yes Sore Throat (except strep) NO Flui (more content not included)... [facility] XR Tibia/Fibula 2 Views Maximino nate 05-11-2024 XR Tibia/Fibula 2 Views Right EXAM: XR Tibia/Fibula 2 Views Right HISTORY: ro osteo COMPARISON: None. TECHNIQUE: AP and lateral views of the right lower extremity FINDINGS: There is no fracture or dislocation. There is no erosive change. There is diffuse soft tissue swelling. There is a plantar heel spur. There is fragmentation of the bones of the midfoot, possibly indicative of Charcot joint. IMPRESSION: No evidence of osteomyelitis right lower extremity Final Dictated by: Gema Isaacs MD Dictated DT/TM: 05/11/24 4:59 Signed (Electronic Signature): Gema Isaacs MD 05/11/24 5:00 pm Technologist: Edith MEYER [facility] Outside Recordson 04-13-2024 Outside Records [id number] .[facility] Summary[facility] 03-09-2024 Coding Summary HTMLBase 64 FaatqxurUGy2hDf+PGhlY WQ+BL7VVMImJ16avVWpzX 2cR8GGNKfQCxtiCRZIDTr MYrUhxqZuTK3gfYTwRLIa IC8+EZ0sNEMcMwdkpCSye 7M6kGA3R43tgj2oCFsjuJ C1ASGfStIkfqgxb4rkdOs 6IDcuNmluOyBt QDBlmM36TAR6hK96Ar04v HEstYQhv5pffKf1DoKhJQ DeJRT8pIjjAEvoo4ZlXPU oF48wkIUmd7K2 UPTeqOmadQDsWrWsmUQ9j Q7dCPihjeldu8pbuvbiEo e1iy19yTMqc7J9kKE3S9K kivF4NBOfeWFv QrqdkPZArW8pxroou4dei wdqPkRaHMKhSEz9YRj3OA WetGheMdViTR57VXL2TRQ dihHdX1PaGMYl vCrfDzI2h4P9Am6ZN6MRB xnqN6IYGESKXBzgrBL+PC 32zo34Q6NhFigjLyx7SOB gPWR1pZE5vL4z NNItTGygs4P3qUG3M7Jur qAozu3bv6poIVTjASllF0 4bmWHiw9Z0KNSusJU6DGB uuFbpYeLfwE57 Oyc+CCHgfZotl3LrWkxvy 4cex3poePo7ZvljRHRbqr SkiRztFYB7a8VhGr9zJRI pgFJ5qZF1jC5m GmWsEbK9IJbfQ000ZxEpl DQgRdbuN53iU1UoeNW+PH IbWhi7EWHtaWrmKU9tM5G hZGRpbmctbGVm qOulFD5oSANuotvkRVAll M7oZJAmJ6d9KfQuYuA3IS kaA6WePAUqekmnMh58iP8 sTmBoWyX0EUsk J5MaozM3PNNnwOXoLWulK RM0P28cm4D9BXKgIOZgWO X9qSG1cJ4jjJmxghzaaPT mdDsgdmVydGlj AIytQPcbV939AIBvhRkhG kNvZGluZyBEYXRlOiAgMD YvMjEvMjAyNDwvdGQ+PHR uXHY0kPxcLDLe mRJlFGbeMi1huRmnyOpfY L0lSBDafietCXCbqY5lIF JpxXEdnErsDY8aQHOltnz mh760AtSbRBI4 XOJjtLIdR0LxqC3sYnVyL UAsVAGfA6WurHTyVXqhN1 29XUdtAgY3PGAnuwQhX6H sLWFsaWduOiB0 u7H2Dx0Ua9DofaorT2Tre ENuDnOmKinzTEb5I1VxOe wvdHI+QB48WRKeYL83YKq 7YDX4lVykNYfx WGLjM9IkrD5cYkEnAYAuM GRkOyc+PHRhYmxlIHdpZH RoPScxMDAlJyBzdHlsZT0 pNj4yJFAhVYBz oAcuxSNjZwDgb4veFKAhK QtpIG6pmWwsD2YquAE5NC Thn9h6Xr46J40qN8UikLE +GCQtySH2oVU5 oQ8vJjXrHgW2ZNbzW521P eGasJOxHvvxn1ujk2fbxY u6XoD2PGDuvuPyyLniEJW 5t3HdXu54I44b IHdpZHRoPSIxNSUiIHZhb Osqmb3nuC7jFy4+PGNvbC Q1fTH1oZ3iNdDfPaR4ZAl qV539VeRagFRo Uwqhk1uej2yfgIh2KhLyO CKgqzVtdZliJWX2i6TvLh 64L8RfdLquh4ZxQow9cl7 9uRBvw4E5jPE0 N2HpAMQfaufrvDConSkjI N0oXSWchtrsKDCliY2nDX NkY6z5UcTzTzL5YUngB8S qugS7OZPdjTAs LOJraLPCkE6eeqajq0xei zosPpJzWKAnNCh6GBa2XD LmmXavJrNyOOK8GbM8HQH 5qAJkfS9prEvm veuvmL7yWjd+QKX5lTAsu BHUMJ9vPplpbVE+PHRkIH F5zZoeLLefTPXilC6pOEC hG4w2OcFfWsF7 GWhxQ5AuspC7BQNpeUDqG QDtoYCHgJ0xfcngn7hlxh kkAaUcQFTrNIf0PJj6JCE saWduOiBsZWZ0 VsO6AAL7tZZdkH8dgPdxe epftX5kVdc+QmlydGggRG V4DQl0F5JkMka3WGGreKy xLK9aiQVdVSej Lv3uuIieeJgtDZ1qXJOlz oejj691DzFgo6fmBVXtdL SdJVtkSGY6S31ta2T1VOD pYYKmGTS3oHX7 wZ9maSciadcewMZecLtgz gUarVtaEYetDDkeL617YQ KxlGxqIjObQQc8T7QeDtd 9OZKavLcoGN6u nWCsXHicOw9aiFmmsJonW Y7tCYBynvarz256CpTub7 rzHTXtmCRuJBwnUYW6F19 ns8N6FFVmRZEn JGM2bYE8rA4mnMzbrehsr GVmdDsgdmVydGljYWwtYW qmE239PDKmhWitQrAxxWs 6Q5WtBnj6UTCv oUyfHD9tnWYtLOlyQz7og UuwxPrgOG5gPREvybbqs6 29LmHfj0xkHVQgaZYwENm qFLN6A85gq0Y8 XQFcJCGhUWP2hQO8bQ5fr GlnbjogbGVmdDsgdmVydG xqKIwkSDwhA661JDCugGm nPlBhdGllbnQg LWbjOIk1O7MmUxowoMC+P J83IMEtAQ93lOSvoHRjc8 jviXn5IzGzCWVtEOT6nIi sCPzhk2YwMYSi I91eqBQsu2W2CDOweXwoe CGaBaZykKN5iL2fIXrvwq iym6otesxeAfvuu2rjld7 6sP86H35cGQwa ZHRoPSIzMCUiIHZhbGlnb s4boA4wEp8+UOIfzBE6iY F8eF9yCBMhTaT2HEcrU65 9InRvcCIvPjxj j1qaj9slkIk9TvN4CYZdy xPagFdmIRZ4u2UsDf09G5 9sIHdpZHRoPSIyMCUiIHZ soQmbxa7kyN0l Ii8+XAHhcHD4dDX1yZ0vS pMwRsJ3WVznG675IrPcvQ LcCslrI21oO6HavRN+PHR jWsv4MZMrxWuo JJ3ibKKdZJovPo2mYFS6H gPbRkWcXVvpM5BvVCGbcp iflafywHJ4NZLnCWXgxC9 9Gq7vvKndMYUb rLCMaA8tmaafn8wlaqmkW sYeJGOhJDi4OYz1IBHbsC xsTkRdURA4HdF4MUK0bQM sfZ9hpBmynfsv oH1lO5QsRDVseuifKl86u Z4gSoGiOzM4QCbxMju+U0 NUZFHSAiolKFTIE2ziIAb RCM82G6KmSfj9 DMSubGkmUA5bxPOrIPkzU y1atVorqDjfRN5bGQZvog vmAVJocM7aVUAvoBBvpIh fSO7hRPJebkak f766OiQjOKZ5MOAxjGSrK 3SlwU4lZrUeUCRnLVGuY0 CazTDhGAlsI854RRmmNvC 8KLYcgcPtN7Nr IRVweXppZsV8d4B2Lb3jD z1eFJ8uWYU1HB01OK51fI Huy4K0nHH7Y7AbONUqcvy nqgcsyZZ7MLIq CUFvjA85uYKwQNzfUw9nw 6O9v289TWIcRFYptC10Cl 9myRhhFMJntLLQvH4nhen tg6vfkykbGfDo JLGtYKi6XNv6IPQwgDthG sFzYIL1TnQ2RCP7kEXwvS 9swMrosnaqeN4sYpo+NTk mEDDfieR8D5Wr Mht2SAYtlTvoHU9axNBsD TmsAc2dyGessLufEE5fFO PstxqyDNHeyR3aXZJhfOL zdNfpLM4iMNEc xbrzq082UtFjQOK4WBPqz RAmM7TwcP9cFhAqSXMmCC NdE4RbyVGaDZupI257ADp qVuU8ESRndiYa L3YdNYCrqJweKoQ5u2C0V d5SRRqKFK86EH12wZXqo7 Z7oZF5W7PsHJZxyzibbmy foLK7WZBzMXDr uM03yMMaHLxoSx9cc1U3i 370JYRrVDGyuO02Di7ofY wnFZPvyTQReR8thfjum6a vcjogIzAwMDAw LDm6KWo5SZEawFtbHsBtI ZB5RgK5QGE3gVOzxN2dxC hghjxzhQ5sZzq+X4Y2C8T kPjwvdHI+PC90 FONtYM67zMLqrWQue8feg Pn0SbMgMMTvKEF9cAykFP fqj5PzDLZlY56jmCCym6O 6IGNvbGxhcHNl GyUadOB6hY0zAZnsxcruc 7qzoxwrAvvgn5fzfy00fU 38U21dNImqACHjXMCnUCZ jMVOijHjoyt7y tK4qMd3+CGPkvJA5qOY5o O5xEcLzGtT7XDtlE006Gn NviXYvDkuws6dwh5jjvGv 9IjIwJSIgdmFs kDwoVVP4t3CwFc51N90iD HdpZHRoPSIyMCUiIHZhbG jcqf9leE7fAz8+RF1jw9p prx03kL64uOC+ MIMgBAB9kCheAYnxFPVaa F6wVSveBfJ3OHHaNwJbvY 92rHNzSHulZv5nsKrosMi pJX9uTSLejjyx n540UhNev4phMYDhwMDtZ CibPVH5I29tq7F6YYVkTS FzTGJ3oRG8dI6tkPumpoe gbGVmdDsgdmVy eLqiHRleQDavS376DVTya VvcGrVksFVsM2yoitWBHR 1lOjwvdGQ+ZMIlRMZ9oHl gYCrnBYIkfF3y ZQPtG3l5VyHvKeD1LLhpE 6XvmwZ3TZNpcKEoOKWptH TLwR9gbaojl3htsupuPtS mYKOgHLe0HGn1 TLJgkCyvVxCsFID5LnS4Q AL1fNCylY4mzDvlbduwnT 9wOyc+RklOOjwvdGQ+PHR zFQR1uQoxIMai BOZscV5lUKPuQ2u0MtVbV lK3MOvoX7QlsuZ2DJYksR UqSFCivASAnW0tqxjkp9d vcjogIzAwMDAw EZc2RFa9KWPnvGyqXeEeQ BS4SlR7LOO4pCGcqQ8osQ khnqzwbH9hGxb+TVJOOjw vdGQ+PHRkIHN0 kFkuHVsmGZEweF7fZACaG 7b0CgKwCsV8CPcoM7Eyle M7CSSpkAOrUYHysVACxK1 gaqnld1ssftuf FpLfGTOpWWg1BOw5MTWsc NhuShStXKL6HiF2EEL3fI UxcT5vjZaftadjeY8vPej +PQJ3JHC5VF13 LZ15N1ZkGpcnpUMfzAK+P HRhYmxlIHdpZHRoPScxMD RmOePpaNqvFQ4oVp9sAKH yLWNvbGxhcHNl OiB (more content not included)... Normal [facility] Office/Clinic Noteon 024 Office/Clinic Note Patient: SILVIO CROWELL Age: 58 years Sex: MALE : 1965 Associated Diagnoses: Diabetes; CHF (congestive heart failure); Balanitis; Lower leg abrasion Author: Balwinder Miller MD A History of Present Illness 58-year-old male presents today with multiple complaints. He is here for 3-month follow-up and management of type 2 diabetes. His A1c today is 10.1. At last visit 7.8. In talking with patient he had lost his insurance and had not been taking any of his medications for diabetes for at least 3 months. He also admits he has not been eating well. Looking over his history he is also being treated for congestive heart failure. More recently he had a slight abrasion on his left leg and he got a new puppy that scratched his leg causing significant irritation to the skin. It is healing slowly. He has been treating with soap and water. Is no longer bleeding. He did have pictures that were reviewed. Patient is also have an infection on the glans of his penis. Is very erythematous and red. At 1 point he was on Farxiga most likely infection from when he was on the Farxiga. He had not called the office and was just trying to treat it over the last few months on his own. Review of Systems Constitutional: Negative. Respiratory: Negative. Cardiovascular: Negative. Gastrointestinal: Negative. Genitourinary: Negative except as documented in history of present illness. Integumentary: Negative except as documented in history of present illness. Health Status Allergies: Allergic Reactions (Selected) Severe Dilaudid- No reactions were documented., Allergies (1) Active Severity Reaction Dilaudid Severe None Documented Current medications: (Selected) Prescriptions Prescribed Eliquis 5 mg oral tablet: 5 mg = 1 tab(s), PO, BID, 60 tab(s), 9 Refill(s) Farxiga 10 mg oral tablet: 1 tab(s), Oral, Daily, 30 tab(s), 3 Refill(s) glimepiride 4 mg oral tablet: See Instructions, take 1 tablet by mouth twice a day, 180 tab(s), 5 Refill(s) sildenafil 20 mg oral tablet: See Instructions, take 2-5 tabs 30 min before activity., 30 tab(s), 6 Refill(s) Documented Medications Documented Albuterol (Eqv-ProAir HFA) 90 mcg/inh inhalation aerosol: 2 puff(s), INH, q4hr (int), PRN: wheezing, 0 Refill(s) Metoprolol Tartrate 25 mg oral tablet: 25 mg = 1 tab(s), PO, BID, 180 tab(s), 0 Refill(s) Symbicort 80 mcg-4.5 mcg/inh inhalation aerosol: 2 puff(s), INH, BID, 10.2 gm, 0 Refill(s) furosemide 40 mg oral tablet: 40 mg = 1 tab(s), PO, Daily, 30 tab(s), 0 Refill(s) ranolazine 1000 mg oral tablet, extended release: 1,000 mg = 1 tab(s), PO, BID, take 1 tablet by mouth twice a day, Home Medications (9) Active Albuterol (Eqv-ProAir HFA) 90 mcg/inh inhalation aerosol 2 puff(s), PRN, INH, q4hr (int) Eliquis 5 mg oral tablet 5 mg = 1 tab(s), PO, BID Farxiga 10 mg oral tablet 1 tab(s), Oral, Daily furosemide 40 mg oral tablet 40 mg = 1 tab(s), PO, Daily glimepiride 4 mg oral tablet See Instructions Metoprolol Tartrate 25 mg oral tablet 25 mg = 1 tab(s), PO, BID ranolazine 1000 mg oral tablet, extended release 1,000 mg = 1 tab(s), PO, BID sildenafil 20 mg oral tablet See Instructions Symbicort 80 mcg-4.5 mcg/inh inhalation aerosol 2 puff(s), INH, BID Problem list (past medical history): Active Problems (18) Apnea, sleep Arthritis B12 deficiency Bronchitis, chronic CAD (coronary artery disease) CHF (congestive heart failure) COPD Depression Diabetes Diabetic neuropathy Disease of kidney HTN (hypertension) Impaired left ventricular function NIDDM Oral thrush Pedal edema Secondary polycythemia Stasis dermatitis of lower extremity due to chronic peripheral vascular hypertension Physical Examination VS/Measurements Vital Signs 02/08/2024 11:18 EDT Peripheral Pulse Rate 63 bpm Systolic Blood Pressure 110 mmHg Diastolic Blood Pressure 74 mmHg BP Site Left arm SpO2 95 % , Measurements from flowsheet : Measurements 02/08/2024 11:18 EDT Height 185.0 cm Height/Length Measured (inches) 72.83 in Weight 135.62 kg Weight Measured (lbs) 298.991 lb Weight Dosing 135.620 kg Body Mass Index 39.63 kg/m2 [place] Body Weight Calculated 79.52 kg BSA Measured 2.64 m2 General: Alert and oriented, No acute distress. Neck: No jugular venous distention, No lymphadenopathy, No thyromegaly. Respiratory: Lungs are clear to auscultation, Respirations are non-labored, Breath sounds are equal. Cardiovascular: Normal rate, Regular rhythm, No murmur, Good pulses equal in all extremities, +2 edema of the legs bilaterally.. Integumentary: Left anterior martinez: Large excoriated superficial abrasion noted. Healing well. No purulence. Minimal open area.. Impression and Plan Diagnosis Diabetes (VRS01-AZ E11.9). Plan: Will resend his Farxiga and glimepiride to the pharmacy to get him back on medication. Will have follow-up in 3 months we will recheck his A1c at that time. Also discussed with him ab (more content not included)... Normal [facility] Office/Clinic Noteon 024 Office/Clinic Note Patient: SILVIO CROWELL Age: 58 years Sex: MALE : 1965 Associated Diagnoses: Diabetes; Pedal edema Author: Balwinder Miller MD A History of Present Illness 58-year-old male presents today for follow-up of type 2 diabetes. He is currently on Ozempic 0.25 mg weekly. He is tolerating medication well. Denies any hypoglycemic episodes. His weight is down a couple pounds. He denies any hypoglycemic episodes. He was occasionally having some diarrhea that seems to come and go. He also has a history of congestive heart failure with pedal edema. He is only taking his furosemide every other day because of his work schedule. 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 There are some blistering on his right leg. No evidence of infection. Review of Systems Constitutional: Negative. Respiratory: Negative. Cardiovascular: Negative except as documented in history of present illness. Gastrointestinal: Negative. Health Status Allergies: Allergic Reactions (Selected) Severe Dilaudid- No reactions were documented., Allergies (1) Active Severity Reaction Dilaudid Severe None Documented Current medications: (Selected) Prescriptions Prescribed Eliquis 5 mg oral tablet: 5 mg = 1 tab(s), PO, BID, 60 tab(s), 9 Refill(s) Farxiga 10 mg oral tablet: 1 tab(s), Oral, Daily, 30 tab(s), 3 Refill(s) Ozempic 2 mg/1.5 mL (0.25 mg or 0.5 mg dose) subcutaneous solution: 0.25 mg, SubQ, qWeek, rotate injection sites, 1 EA, 6 Refill(s) glimepiride 4 mg oral tablet: See Instructions, take 1 tablet by mouth twice a day, 180 tab(s), 5 Refill(s) sildenafil 20 mg oral tablet: See Instructions, take 2-5 tabs 30 min before activity., 30 tab(s), 6 Refill(s) Documented Medications Documented Albuterol (Eqv-ProAir HFA) 90 mcg/inh inhalation aerosol: 2 puff(s), INH, q4hr (int), PRN: wheezing, 0 Refill(s) Metoprolol Tartrate 25 mg oral tablet: 25 mg = 1 tab(s), PO, BID, 180 tab(s), 0 Refill(s) Symbicort 80 mcg-4.5 mcg/inh inhalation aerosol: 2 puff(s), INH, BID, 10.2 gm, 0 Refill(s) furosemide 40 mg oral tablet: 40 mg = 1 tab(s), PO, Daily, 30 tab(s), 0 Refill(s) ranolazine 1000 mg oral tablet, extended release: 1,000 mg = 1 tab(s), PO, BID, take 1 tablet by mouth twice a day, Home Medications (10) Active Albuterol (Eqv-ProAir HFA) 90 mcg/inh inhalation aerosol 2 puff(s), PRN, INH, q4hr (int) Eliquis 5 mg oral tablet 5 mg = 1 tab(s), PO, BID Farxiga 10 mg oral tablet 1 tab(s), Oral, Daily furosemide 40 mg oral tablet 40 mg = 1 tab(s), PO, Daily glimepiride 4 mg oral tablet See Instructions Metoprolol Tartrate 25 mg oral tablet 25 mg = 1 tab(s), PO, BID Ozempic 2 mg/1.5 mL (0.25 mg or 0.5 mg dose) subcutaneous solution 0.25 mg, SubQ, qWeek ranolazine 1000 mg oral tablet, extended release 1,000 mg = 1 tab(s), PO, BID sildenafil 20 mg oral tablet See Instructions Symbicort 80 mcg-4.5 mcg/inh inhalation aerosol 2 puff(s), INH, BID Problem list: Active Problems (18) Apnea, sleep Arthritis B12 deficiency Bronchitis, chronic CAD (coronary artery disease) CHF (congestive heart failure) COPD Depression Diabetes Diabetic neuropathy Disease of kidney HTN (hypertension) Impaired left ventricular function NIDDM Oral thrush Pedal edema Secondary polycythemia Stasis dermatitis of lower extremity due to chronic peripheral vascular hypertension Physical Examination Vital Signs 10/03/2023 13:48 EST Peripheral Pulse Rate 65 bpm Systolic Blood Pressure 100 mmHg Diastolic Blood Pressure 80 mmHg BP Site Left arm SpO2 94 % Measurements from flowsheet : Measurements 10/03/2023 13:48 EST Height 185 cm Height/Length Measured (inches) 72.83 in Weight 135.44 kg Weight Measured (lbs) 298.594 lb Weight Dosing 135.440 kg Body Mass Index 39.57 kg/m2 [place] Body Weight Calculated 79.52 kg BSA Measured 2.64 m2 General: Alert and oriented, No acute distress. Respiratory: Lungs are clear to auscultation, Respirations are non-labored, Breath sounds are equal. Cardiovascular: Normal rate, Regular rhythm, No murmur, +2 edema of the legs bilaterally. Positive bullae on the right anterior martinez.. Impression and Plan Diagnosis Diabetes (MXL02-PT E11.9). Plan: Will increase his Ozempic to 0.5 mg weekly. New prescription sent.. Orders Orders Evaluation and Management: 51243 Office visit - established pt, Level 3 (Order): 10/03/2023 13:43 EST, Qty: 1, Diabetes - Pedal edema. Diagnosis Pedal edema (ZWC07-ZW R60.0). Course: Discussed with patient the importance of taking his medication daily. It would help preventing the edema and therefore the blisters in his legs. Also wear compression stockings would be beneficial.. [Electronically Signed on: 10/03/2023 14:20 EST] Balwinder Miller MD [Verified on: 10/03/2023 14:20 EST] Balwinder Miller MD [facility] Outside Recordson 08-25-2023 Outside Records [id number] [facility] Outside Records [id number]# 1.00OTGTIFF [facility] Office/Clinic Noteon 023 Office/Clinic Note Patient: SILVIO CROWELL Age: 57 years Sex: MALE : 1965 Associated Diagnoses: Diabetes; Needs flu shot; COPD; HTN (hypertension) Author: Balwinder Miller MD A History of Present Illness 57-year-old male here for 3-month follow-up of type 2 diabetes. He does have a history of CHF and does follow-up with cardiology. His A1c was improved at 7.8. He is requesting possibly going on Ozempic to help with his blood sugars but also for weight loss. He also is here for diabetic foot exam. He does have a history of decubitus ulcer on his foot in the past. Has healed up. Positive neuropathy. He does report he had an episode where he became very lightheaded and flush but lasted only about 20 minutes then resolved. He had not eaten prior wondering if he became hypoglycemic. He is also requesting a flu vaccine. Patient also has a history of COPD. Has been stable. He has continued to use his long-acting steroid inhaler. No exacerbations. Review of Systems Constitutional: Negative. Ear/Nose/Mouth/Throat : Negative. Respiratory: Negative. Cardiovascular: Negative. Gastrointestinal: Negative. Musculoskeletal: Negative. Integumentary: Negative. Neurologic: Negative except as documented in history of present illness. Psychiatric: Negative. Health Status Allergies: Allergic Reactions (Selected) Severe Dilaudid- No reactions were documented., Allergies (1) Active Severity Reaction Dilaudid Severe None Documented Current medications: (Selected) Prescriptions Prescribed Eliquis 5 mg oral tablet: 5 mg = 1 tab(s), PO, BID, 60 tab(s), 9 Refill(s) Farxiga 10 mg oral tablet: 1 tab(s), PO, Daily, 30 tab(s), 5 Refill(s) Januvia 100 mg oral tablet: 1 tab(s), PO, Daily, 30 tab(s), 5 Refill(s) amoxicillin-clavulana te 875 mg-125 mg oral tablet: 1 tab(s), PO, q12hr, for 10 day(s), 20 tab(s), 0 Refill(s) codeine-guaifenesin 10 mg-100 mg/5 mL oral syrup: 10 mL, PO, q6hr (int), for 5 day(s), PRN: as needed for cough, 200 mL, 0 Refill(s) glimepiride 4 mg oral tablet: See Instructions, take 1 tablet by mouth twice a day, 180 tab(s), 5 Refill(s) sildenafil 20 mg oral tablet: See Instructions, take 2-5 tabs 30 min before activity., 30 tab(s), 6 Refill(s) Documented Medications Documented Albuterol (Eqv-ProAir HFA) 90 mcg/inh inhalation aerosol: 2 puff(s), INH, q4hr (int), PRN: wheezing, 0 Refill(s) Metoprolol Tartrate 25 mg oral tablet: 25 mg = 1 tab(s), PO, BID, 180 tab(s), 0 Refill(s) Symbicort 80 mcg-4.5 mcg/inh inhalation aerosol: 2 puff(s), INH, BID, 10.2 gm, 0 Refill(s) furosemide 40 mg oral tablet: 40 mg = 1 tab(s), PO, Daily, 30 tab(s), 0 Refill(s) ranolazine 1000 mg oral tablet, extended release: 1,000 mg = 1 tab(s), PO, BID, take 1 tablet by mouth twice a day, Home Medications (12) Active Albuterol (Eqv-ProAir HFA) 90 mcg/inh inhalation aerosol 2 puff(s), PRN, INH, q4hr (int) amoxicillin-clavulana te 875 mg-125 mg oral tablet 1 tab(s), PO, q12hr codeine-guaifenesin 10 mg-100 mg/5 mL oral syrup 10 mL, PRN, PO, q6hr (int) Eliquis 5 mg oral tablet 5 mg = 1 tab(s), PO, BID Farxiga 10 mg oral tablet 1 tab(s), PO, Daily furosemide 40 mg oral tablet 40 mg = 1 tab(s), PO, Daily glimepiride 4 mg oral tablet See Instructions Januvia 100 mg oral tablet 1 tab(s), PO, Daily Metoprolol Tartrate 25 mg oral tablet 25 mg = 1 tab(s), PO, BID ranolazine 1000 mg oral tablet, extended release 1,000 mg = 1 tab(s), PO, BID sildenafil 20 mg oral tablet See Instructions Symbicort 80 mcg-4.5 mcg/inh inhalation aerosol 2 puff(s), INH, BID Problem list (past medical history): Active Problems (18) Apnea, sleep Arthritis B12 deficiency Bronchitis, chronic CAD (coronary artery disease) CHF (congestive heart failure) COPD Depression Diabetes Diabetic neuropathy Disease of kidney HTN (hypertension) Impaired left ventricular function NIDDM Oral thrush Pedal edema Secondary polycythemia Stasis dermatitis of lower extremity due to chronic peripheral vascular hypertension Physical Examination VS/Measurements Vital Signs 08/03/2023 13:52 EST Peripheral Pulse Rate 81 bpm Systolic Blood Pressure 124 mmHg Diastolic Blood Pressure 82 mmHg SpO2 94 % , Measurements from flowsheet : Measurements 08/03/2023 13:52 EST Height 185 cm Height/Length Measured (inches) 72.83 in Weight 136.17 kg Weight Measured (lbs) 300.203 lb Body Mass Index 39.79 kg/m2 [place] Body Weight Calculated 79.52 kg BSA Measured 2.65 m2 General: Alert and oriented, No acute distress. Neck: No carotid bruit, No jugular venous distention, No lymphadenopathy, No thyromegaly. Respiratory: Lungs are clear to auscultation, Respirations are non-labored, Breath sounds are equal. Cardiovascular: Normal rate, Regular rhythm, No murmur, Good pulses equal in all extremities, +1 edema of the legs bilaterally.. Gastrointestinal: Soft, Non-tender, Non-distended. Integumentary: Positive callus skin on feet. No (more content not included)... Normal [facility] Creatinine W/GFR [place] [facility] [place] [facility] 11-21-2020 Creatinine [Mass/Vol] 1.81 mg/dL High 0.51 - 1.19 mg/dL [employer] Phone: GFR Non- 39 mL/min Low >60 [employer] Phone: GFR/1.73 sq M predicted among non-blacks MDRD (S/P/Bld) [Vol rate/Area] 47 mL/min/{1.73_m2} Low >60 [employer] Phone: GFR/1.73 sq M predicted among non-blacks MDRD (S/P/Bld) [Vol rate/Area] [employer] Phone: Comment on above: Average GFR for 50-5 9 years old: 93 mL/min/1.73sq m Chronic Kidney Disease: <60 mL/min/1.73sq m Kidney failure: <15 mL/min/1.73sq m eGFR calculated using average adult body mass. Additional eGFR calculator available at: http://www.Wildfire.get2play/multiple_crcl_2011.htm Interpretation and review of laboratory results Abnormal [employer] Phone: MRI BRAIN W WO CONTRASTon MRI BRAIN W WO CONTRAST EXAMINATION: MRI OF THE BRAIN WITHOUT AND WITH CONTRAST 11/21/2020 11:11 am TECHNIQUE: Multiplanar multisequence MRI of the head/brain was performed without and with the administration of intravenous contrast. COMPARISON: None. HISTORY: ORDERING SYSTEM PROVIDED HISTORY: Tremor TECHNOLOGIST PROVIDED HISTORY: Reason for Exam: tremor FINDINGS: INTRACRANIAL STRUCTURES/VENTRICLES : The sellar and suprasellar structures, optic chiasm, corpus callosum, pineal gland, tectum, and midline brainstem structures are unremarkable. The craniocervical junction is unremarkable. There is no acute hemorrhage, mass effect, or midline shift. There is satisfactory overall corrigan-white matter differentiation. There is minimal chronic microvascular disease. The ventricular structures are symmetric and unremarkable. The infratentorial structures including the cerebellopontine angles and internal auditory canals are unremarkable. There is no abnormal restricted diffusion. There is no abnormal blooming artifact on susceptibility weighted imaging. There is no abnormal postcontrast enhancement. ORBITS: The visualized portion of the orbits demonstrate no acute abnormality. SINUSES: The paranasal sinuses are normally aerated. There is fluid in the right mastoid air cells. BONES/SOFT TISSUES: The bone marrow signal intensity appears normal. The soft tissues demonstrate no acute abnormality. IMPRESSION: Minimal chronic microvascular disease without acute intracranial abnormality. No abnormal postcontrast enhancement. Interpreted by: Octavio Inman MD Signed by: Octavio Inman MD 11/21/20 Final result Normal [facility] Minimal chronic microvascular disease without acute intracranial abnormality. No abnormal postcontrast enhancement. [employer] Phone: EXAMINATION: MRI OF THE BRAIN WITHOUT AND WITH CONTRAST 11/21/2020 11:11 am TECHNIQUE: Multiplanar multisequence MRI of the head/brain was performed without and with the administration of intravenous contrast. COMPARISON: None. HISTORY: ORDERING SYSTEM PROVIDED HISTORY: Tremor TECHNOLOGIST PROVIDED HISTORY: Reason for Exam: tremor FINDINGS: INTRACRANIAL STRUCTURES/VENTRICLES : The sellar and suprasellar structures, optic chiasm, corpus callosum, pineal gland, tectum, and midline brainstem structures are unremarkable. The craniocervical junction is unremarkable. There is no acute hemorrhage, mass effect, or midline shift. There is satisfactory overall corrigan-white matter differentiation. There is minimal chronic microvascular disease. The ventricular structures are symmetric and unremarkable. The infratentorial structures including the cerebellopontine angles and internal auditory canals are unremarkable. There is no abnormal restricted diffusion. There is no abnormal blooming artifact on susceptibility weighted imaging. There is no abnormal postcontrast enhancement. ORBITS: The visualized portion of the orbits demonstrate no acute abnormality. SINUSES: The paranasal sinuses are normally aerated. There is fluid in the right mastoid air cells. BONES/SOFT TISSUES: The bone marrow signal intensity appears normal. The soft tissues demonstrate no acute abnormality. [employer] Phone: Don, Mhpn Incoming Radiant Results From [facility] - 11/21/2020 12:08 PM EST EXAMINATION: MRI OF THE BRAIN WITHOUT AND WITH CONTRAST 11/21/2020 11:11 am TECHNIQUE: Multiplanar multisequence MRI of the head/brain was performed without and with the administration of intravenous contrast. COMPARISON: None. HISTORY: ORDERING SYSTEM PROVIDED HISTORY: Tremor TECHNOLOGIST PROVIDED HISTORY: Reason for Exam: tremor FINDINGS: INTRACRANIAL STRUCTURES/VENTRICLES : The sellar and suprasellar structures, optic chiasm, corpus callosum, pineal gland, tectum, and midline brainstem structures are unremarkable. The craniocervical junction is unremarkable. There is no acute hemorrhage, mass effect, or midline shift. There is satisfactory overall corrigan-white matter differentiation. There is minimal chronic microvascular disease. The ventricular structures are symmetric and unremarkable. The infratentorial structures including the cerebellopontine angles and internal auditory canals are unremarkable. There is no abnormal restricted diffusion. There is no abnormal blooming artifact on susceptibility weighted imaging. There is no abnormal postcontrast enhancement. ORBITS: The visualized portion of the orbits demonstrate no acute abnormality. SINUSES: The paranasal sinuses are normally aerated. There is fluid in the right mastoid air cells. BONES/SOFT TISSUES: The bone marrow signal intensity appears normal. The soft tissues demonstrate no acute abnormality. IMPRESSION: Minimal chronic microvascular disease without acute intracranial abnormality. No abnormal postcontrast enhancement. [employer] Phone: Vital Signs Date Time Vital Sign Value Performing Clinician Faci lity 11-21-2020 11:35-0500 Pulse (Heart Rate) 75 /min [employer] Phone: 11-21-2020 [id number] Pulse Oximetry 95 % [facility] Phone: Encounters Encounter Date Encounter Type Care Provider Facility Start: 07-16-2024 ambulatory Morgan R Dolce Facility :[facility] Start: 07-09-2024 End: 07-09-2024 ambulatory Morgan R Dolce Facility:[facility] Start: 06-29-2024 End: 06-29-2024 [facility] Start: 06-19-2024 ambulatory [facility] Facility :[facility] Start: 06-07-2024 End: 06-07-2024 ambulatory [facility] Facility:[facility] Start: 06-07-2024 End: 06-07-2024 ambulatory Balwinder Miller Facility: [facility] Start: 06-04-2024 ambulatory Morgan R Dolce Facility :[facility] Start: 05-31-2024 End: 05-31-2024 ambulatory [facility] Facility:[facility] Start: 05-25-[address] [facility] Facility :[facility] Start: 05-17-2024 End: 05-17-2024 ambulatory [facility] Facility:[facility] Start: 05-11-2024 End: 05-11-2024 Emergency department patient visit Balwinder Miller Facility:[facility] Start: 05-11-2024 End: 05-11-2024 ambulatory Balwinder Miller Facility:[facility] Start: 02-08-2024 End: 02-08-2024 ambulatory Balwinder Miller Facility: [facility] Start: 01-02-2024 End: 01-02-2024 ambulatory Balwinder Miller Facility: [facility] Start: 10-03-2023 End: 10-03-2023 ambulatory Balwinder Miller Facility: [facility] Start: 08-03-2023 End: 08-03-2023 ambulatory Balwinder Miller Facility: [facility] Start: 11-21-2020 End: 11-21-2020 Subsequent hospital visit by physician Yeimi Castro Rn Pool [facility] Special Procedures Start: 11-21-2020 End: 11-24-2020 Patient encounter procedure GRETA GONZALEZ [facility] Start: 11-21-2020 End: 11-23-2020 Subsequent hospital visit by physician Yeimi Mri Rm 1 (1.5t) [facility] MRI Comment on above: Tremor Start: 04-15-2018 End: 04-16-2018 Patient encounter RORY ZEPEDA [facility] Procedures Date Procedure Procedure Detail Performing Clinician Start: 11-21-2020 Mri brain brain stem w/o w/contrast material Juanpanfilo Gonzalez Work Phone: Start: 11-21-2020 CREATININE W/GFR POI NT OF CARE Juanjannettedenita Wallett Work Phone: Start: 04-15-2018 Echo tthrc r-t 2d w/wom-mode compl spec&colr d NIDIACARITOSONIA ZEPEDA Start: 04-15-2018 ECHO COMPL W DOP COL OR FLOW NIDIAGARRY KATELYN Plan of Treatment Date Care Activity Detail Author Start: 11-21-2021 Creatinine measurement Creatinine monitoring [employer] Phone: Start: 05-20-2020 Influenza vaccination Flu vaccine (#1) [employer] Phone: Start: 01-19-2020 Potassium monitoring Potassium monitoring [employer] Phone: Start: 03-11-2019 Annual Wellness Visit (AWV) Annual Wellness Visit (AWV) [employer] Phone: Start: 12-26-2018 Lipid panel Lipid screen [employer] Phone: Start: 11-13-2018 HbA1c (Bld) [Mass fraction] A1C test (Diabetic or Prediabetic) [employer] Phone: Start: 11-13-2018 TSH Qn TSH testing [employer] Phone: Start: 2014 Screening for malignant neoplasm of colon Colon cancer screen colonoscopy [employer] Phone: Start: 2014 Shingles Vaccine (1 of 2) Shingles Vaccine (1 of 2) [employer] Phone: Start: 1983 DTaP/Tdap/Td vaccine (1 - Tdap) DTaP/Tdap/Td vaccine (1 - Tdap) [employer] Phone: Start: 1983 Hepatitis B vaccine (1 of 3 - Risk 3-dose series) Hepatitis B vaccine (1 of 3 - Risk 3-dose series) [employer] Phone: Start: 1982 Diabetic microalbuminuria test Diabetic microalbuminuria test [employer] Phone: Start: 1979 HIV screening HIV screen [employer] Phone: Start: 1974 Diabetic foot examination Diabetic foot exam [employer] Phone: Start: 1974 Diabetic retinal exam Diabetic retinal exam [employer] Phone: Start: 1970 Pneumococcal 0-64 years Vaccine (1 of 1 - PPSV23) Pneumococcal 0-64 years Vaccine (1 of 1 - PPSV23) [employer] Phone: Start: 1964 Hepatitis C screening Hepatitis C screen [employer] Phone: Payers Date Payer Category Payer Medicare [id number] 2021 Private Health Insurance [id number] 2017 Private Health Insurance [id number] 2014 Medicare [id number] 1965 Unknown [id number] 2.16.8 [id number] 1965 Unknown [id number] 2.16.8 [id number] 1965 Unknown [id number] 2.16.8 40.1.587996.3.579.2.8 1965 Unknown [id number] 2.16.8 40.1.971011.3.579.2 1965 Unknown [id number] 2.16.8 40.1.438420.3.579.2.8 1965 Unknown [id number] 2.16.8 40.1.969785.3.579.2. 1965 Unknown [id number] 2.16.8 40.1.859882.3.579.2 1965 Unknown [id number] 2.16.8 40.1.588172.3.579.2 1965 Unknown [id number] 2.16.8 40.1.444350.3.579.28 1965 Unknown [id number] 2.16.8 40.1.454352.3.579.2 1965 Unknown [id number] 2.16.8 40.1.142672.3.579.2 1965 Unknown [id number] 2.16.8 40.1.258829.3.579.2 1965 Unknown [id number] 2.16.8 40.1.017343.3.579.2 1965 Unknown [id number] 2.16.8 40.1.402463.3.579.2 1965 Unknown [id number] 2.16.8 40.1.651340.3.579.2 1965 Unknown [id number] 2.16.8 40.1.847468.3.579.2 1965 Unknown [id number] 2.16.8 40.1.990301.3.579.2 1965 Unknown [id number] 2.16.8 40.1.855054.3.579.2 Social History Date Type Detail Facility Start: 11-19-2020 Tobacco smoking stat [facility] Former smoker [employer] Phone: Start: 11-19-2020 Tobacco use and exposure Never used [employer] Phone: Start: 11-19-2020 Alcohol intake 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 This happens when the vein medellin are either stretched, weakened, or damaged, or when the valves inside the vein are damaged. With the right treatment, you should be able to continue with an active life. This condition is also called venous stasis. What are the causes? Common causes of this condition include: ? High blood pressure inside the veins (venous hypertension). ? Sitting or standing too long, causing increased blood pressure in the leg veins. ? A blood clot that blocks blood flow in a vein (deep vein thrombosis, DVT). ? Inflammation of a vein (phlebitis) that causes a blood clot to form. ? Tumors in the pelvis that cause blood to back up. What increases the risk? The following factors may make you more likely to develop this condition: ? Having a family history of this condition. ? Obesity. ? . ? Living without enough regular physical activity or exercise (sedentary lifestyle). ? Smoking. ? Having a job that requires long periods of standing or sitting in one place. ? Being a certain age. Women in their 40s and 50s and men in their 70s are more likely to develop this condition. What are the signs or symptoms? Symptoms of this condition include: ? Veins that are enlarged, bulging, or twisted (varicose veins). ? Skin breakdown or ulcers. ? Reddened skin or dark discoloration of skin on the leg between the knee and ankle. ? Brown, smooth, tight, and painful skin just above the ankle, usually on the inside of the leg (lipodermatosclerosis). ? Swelling of the legs. How is this diagnosed? This condition may be diagnosed based on: ? Your medical history. ? A physical exam. ? Tests, such as: ? A procedure that creates an image of a blood vessel and nearby organs and provides information about blood flow through the blood vessel (duplex ultrasound). ? A procedure that tests blood flow (plethysmography). ? A procedure that looks at the veins using X-ray and dye (venogram). How is this treated? The goals of treatment are to help you return to an active life and to minimize pain or disability. Treatment depends on the severity of your condition, and it may include: ? Wearing compression stockings. These can help relieve symptoms and help prevent your condition from getting worse. However, they do not cure the condition. ? Sclerotherapy. This procedure involves an injection of a solution that shrinks damaged veins. ? Surgery. This may involve: ? Removing a diseased vein (vein stripping). ? Cutting off blood flow through the vein (laser ablation surgery). ? Repairing or reconstructing a valve within the affected vein. Follow these instructions at home: ? Wear compression stockings as told by your health care provider. These stockings help to prevent blood clots and reduce swelling in your legs. ? Take [id number] and prescription medicines only as told by your health care provider. ? Stay active by exercising, walking, or doing different activities. Ask your health care provider what activities are safe for you and how much exercise you need. ? Drink enough fluid to keep your urine pale yellow. ? Do not use any products that contain nicotine or tobacco, such as cigarettes, e-cigarettes, and chewing tobacco. If you need help quitting, ask your health care provider. ? Keep all follow-up visits as told by your health care provider. This is important. Contact a health care provider if you: ? Have redness, swelling, or more pain in the affected area. ? See a red streak or line that goes up or down from the affected area. ? Have skin breakdown or skin loss in the affected area, even if the breakdown is small. ? Get an injury in the affected area. Get help right away if: ? You get an injury and an open wound in the affected area. ? You have: ? Severe pain that does not get better with medicine. ? Sudden numbness or weakness in the foot or ankle below the affected area. ? Trouble moving your foot or ankle. ? A fever. ? Worse or persistent symptoms. ? Chest pain. ? Shortness of breath. Summary ? Chronic venous insufficiency is a condition where the leg veins cannot effectively pump blood from the legs to the heart. ? Chronic venous insufficiency occurs when the vein medellin become stretched, weakened, or damaged, or when valves within the vein are damaged. ? Treatment depends on how severe your condition is. It often involves wearing compression stockings and may involve having a procedure. ? Make sure you stay active by exercising, walking, or doing different activities. Ask your health care provider what activities are safe for you and how much exercise you need. This informat (more content not included)... [facility] Clinical Note 05-11-2024 Note Date & Type Note Facility 05-11-2024 Note Patient Education Materials Foll ows: [facility] Medication management note 09-26-2023 Note Date & Type Note Facility 09-26-2023 Note Entered by FOSTER PULIDO on September 26, 2023 09:35:50 EST From: FARHANA PULIDO To: [facility][id number] Sent: 09/26/2023 09:35:50 EST Subject: Medication Management Submitted: Complete:dapagliflozin (Farxiga 10 mg oral tablet) Signed by FARHANA PULIDO 09/26/2023 09:35:00 EST Approved with modifications: dapagliflozin (FARXIGA 10 MG TABLET) take 1 tablet by mouth once daily Qty: 30 tab(s) Days Supply: 30 Refills: 3 Substitutions Allowed Route To [facility] - [facility] #[id number] Signed by FARHANA PULIDO From: [id number] To: Balwinder Miller MD Sent: September 24, 2023 8:55:24 AM ASSET LIABILITY ANALYST Subject: Medication Management Due: September 25, 2023 12:23:24 AM ASSET LIABILITY ANALYST On Hold Pending Signature Drug: dapagliflozin (Farxiga 10 mg oral tablet), take 1 tablet by mouth once daily Quantity: 30 tab(s) Days Supply: 30 Refills: 4 Substitutions Allowed Notes from Pharmacy: Dispensed Drug: dapagliflozin (Farxiga 10 mg oral tablet), take 1 tablet by mouth once daily Quantity: 30 tab(s) Days Supply: 30 Refills: 0 Substitutions Allowed Notes from Pharmacy: [facility] Medication management note 07-22-2023 Note Date & Type Note Facility 07-22-2023 Note Entered by Jennyfer Pulido on July 22, 2023 12:59:36 EDT From: Tori Pulido To: [facility] #[id number] Sent: 07/22/2023 12:59:36 EDT Subject: Medication Management Submitted: Order:SITagliptin (Januvia 100 mg oral tablet) 1 tab(s) PO Daily Qty: 30 tab(s) Days Supply: 30 Refills: 5 Substitutions Allowed Route To Pharmacy - [facility] #[id number] Signed by Tori Pulido 07/22/2023 12:59:00 EDT Submitted: Complete:SITagliptin (Januvia 100 mg oral tablet) Signed by Tori Pulido 07/22/2023 12:59:00 EDT Not Approved: New Rx to follow SITagliptin (JANUVIA 100 MG TABLET) take 1 tablet by mouth once daily Qty: 30 tab(s) Days Supply: 30 Refills: 0 Substitutions Allowed Route To Pharmacy - [facility] #[id number] Signed by Tori Pulido From: [facility] #[id number] To: Balwinder Miller MD Sent: July 22, 2023 8:54:22 AM CDT Subject: Medication Management Due: July 23, 2023 12:11:00 AM CDT On Hold Pending Signature Drug: SITagliptin (Januvia 100 mg oral tablet), take 1 tablet by mouth once daily Quantity: 30 tab(s) Days Supply: 30 Refills: 4 Substitutions Allowed Notes from Pharmacy: Dispensed Drug: SITagliptin (Januvia 100 mg oral tablet), take 1 tablet by mouth once daily Quantity: 30 tab(s) Days Supply: 30 Refills: 0 Substitutions Allowed Notes from Pharmacy: [facility] Summary Purpose Family History No Family History Records FoundNo Family History Records FoundNo Family History Records Found Advance Directives No Advanced Directives Records FoundDocuments on File Type Date Recorded 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 ACP-Advance Directive ACP-Power of Pyrotechnician Latest Code Status on File Code Status Date Activated Date Inactivated Comments Full Code 01/18/2019 9:29 PM 01/19/2019 4:12 PM Full Code 01/18/2019 3:08 PM 01/18/2019 9:29 PM Full Code 09/20/2018 10:02 AM 09/21/2018 2:37 AM Full Code 12/26/2017 10:02 PM 12/27/2017 4:44 PM Full Code 12/26/2017 11:10 AM 12/26/2017 9:52 PM Documents on File Type Date Recorded 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 ACP-Advance Directive ACP-Power of Pyrotechnician Latest Code Status on File Code Status Date Activated Date Inactivated Comments Full Code 01/18/2019 9:29 PM 01/19/2019 4:12 PM Full Code 01/18/2019 3:08 PM 01/18/2019 9:29 PM Full Code 09/20/2018 10:02 AM 09/21/2018 2:37 AM Full Code 12/26/2017 10:02 PM 12/27/2017 4:44 PM Full Code 12/26/2017 11:10 AM 12/26/2017 9:52 PM Reason for Referral Status Reason Specialty Diagnoses / Procedures Referred By Contact Referred To Contact Closed Radiology Diagnoses Tremor Procedures MRI BRAIN W WO CONTRAST Greta Gonzalez, DO [address] [place] [address] Assessments Diagnosis Tremor Abnormal involuntary movements History of Present Illness * Tuyet Loja RN - 11/21/2020 11:44 AM EST Patient here for MRI. Was in MRI before scientific technical writer was present. [employer] rep has already placed patient in a DOO mode with rate of 75 Patient was placed on heart monitor and O2 sat. MRI completed. Patient placed back in normal mode. Discharged to home. documented in this encounter Additional Source Comments (unrecognized sect ion and content) No Status Records FoundNo Status Records FoundNo Status Records Found INFORMATION SOURCE (unrecogn ized section and content) DATE CREATED AUTHOR 04/16/2018 [facility] DATE CREATED AUTHOR AUTHOR'S ORGANIZ ATION 11/24/2020 [facility] DATE CREATED AUTHOR AUTHOR'S ORGANIZ ATION 07/16/2024 [facility] Reason for Visit (unrecogniz ed section and content) Status Reason Specialty Diagnoses / Procedures Referred By Contact Referred To Contact Closed Radiology Diagnoses Tremor Procedures MRI BRAIN W WO CONTRAST Greta Gonzalez, DO [address] [place] [address] FOR RECORDS PERTAINING TO PATIENTS WHO ARE OR HAVE BEEN ENROLLED IN A CHEMICAL DEPENDENCY/SUBSTANCEABUSE PROGRAM, SOME INFORMATION MAY BE OMITTED. This clinical summary was aggregated from multiple sources. Caution should be exercised in using it in the provision of clinical care. This summary normalizes information from multiple sources, and as a consequence, information in this document may materially change the coding, format and clinical context of patient data. In addition, data may be omitted in some cases. CLINICAL DECISIONS SHOULD BE BASED ON THE PRIMARY CLINICAL RECORDS. [employer] provides no warranty or guarantee of the accuracy or completeness of information in this document.
== END 2024-07-17 13:45 | disposition home or self-care (01) ==
LOC: VC 12:51
PROVIDERS: Visit Provider Radiology Diagnostic Radiology
DX: I83.813 Varicose veins of bilateral lower extremities with pain (principal)
CPT/HCPCS: 36478

== ENCOUNTER 2024-07-23 14:15 | Outpatient (OUT) | payer OTHER, SELFPAY ==
[2024-07-23 08:16] VITALS: BMI 39.3
--- NOTE | 2024-07-23 08:16 | VEINCLINIC_ITS ---
Vital Signs 07/23/24 08:16 07/23/24 14:55 Height 6 ft 1 in 6 ft 1 in Weight 135 kg 135 kg BMI 39.3 39.3 Varicose Veins Patient in today for follow up ultrasound of right lower extremity following EVLT of right GSV completed on 07/17/24. Good Willson MD personally performed the services described in this documentation, as scribed by Shreya Patel RDMS in my presence and it is both accurate and complete. Shreya Willson RDMS, am scribing for, and in the presence of, Dr. Good Robbins and in the presence of the patient. thigh: bilateral (right > left leg), knee: bilateral, calf: bilateral, ankle: bilateral and martinez: bilateral Reports heaviness, edema and leg edema History of lower extremity trauma: No Superficial thrombophlebitis: No Family history of varicose veins: no Has patient had previous lower extremity venous surgery: No Patient has previously received the following treatment(s) for lower extremity varicose veins: Reports none Does patient have a history of : not applicable Does patient intend to have future pregnancies: not applicable Has patient had lower extremity venous scan with relux testing: No Support hose used: Yes Problems walking or doing physical activity: Yes How does it affect you: often has to stop and rest with ambulation Do you walk much: No Do you stand much: No Review of Systems ROS Narrative Good Willson MD personally performed the services described in this documentation, as scribed by Shreya Patel RDMS in my presence and it is both accurate and complete. Shreya Willson RDMS, am scribing for, and in the presence of, Dr. Good Robbins and in the presence of the patient. Status of ROS 10 or more systems reviewed and unremark able except as noted in history and below Cardiovascular Reports: edema Integumentary/Breast Reports: itching, redness, skin pain, skin tenderness, skin swelling, new lesion, changing lesion, non-healing lesion and changes in skin color Neurological Reports: numbness in extremities and weakness in extremities [facility] Medical History (Updated 07/23/24 @ 14:57 by Shreya Patel) Phlebitis and thrombophlebitis of superficial vessels of right lower extremity ?I80.01 - Phlebitis and thrombophlebitis of superficial vessels of right lower extremity (ICD-10) Hernia ?K46.9 - Unspecified abdominal hernia without obstruction or gangrene (ICD- 10) Heart attack ?I21.9 - Acute myocardial infarction, unspecified (ICD-10) Bilateral leg edema ?R60.0 - Localized edema (ICD-10) Pain due to varicose veins of both lower extremities ?I83.813 - Varicose veins of bilateral lower extremities with pain (ICD-10) COPD (chronic obstructive pulmonary disease) ?J44.9 - Chronic obstructive pulmonary disease, unspecified (ICD-10) Advanced cardiac disease ?I51.9 - Heart disease, unspecified (ICD-10) CHF (congestive heart failure) ?I50.9 - Heart failure, unspecified (ICD-10) Ulcerated leg varices ?I83.009 - Varicose veins of unspecified lower extremity with ulcer of unspecified site (ICD-10) ?L97.909 - Non-pressure chronic ulcer of unspecified part of unspecified lower leg with unspecified severity (ICD-10) Neuropathy ?G62.9 - Polyneuropathy, unspecified (ICD-10) Diabetes ?E11.9 - Type 2 diabetes mellitus without complications (ICD-10) Surgical History (Updated 07/17/24 @ 13:58 by Myron Mina) Status post laser ablation of incompetent vein ?Z98.890 - Other specified postprocedural states (ICD-10) H/O gastric sleeve ?Z90.3 - Acquired absence of stomach [part of] (ICD-10) H/O hernia repair ?Z98.890 - Other specified postprocedural states (ICD-10) ?Z87.19 - Personal history of other diseases of the digestive system (ICD-10) Family History (Updated 07/02/24 @ 10:43 by Myron Mina) Other Family history of cancer Heart disease Hypothyroid Social History (Updated 07/03/24 @ 13:38 by Myron Mina) Within the past year, how often did you have a drink containing alcohol: monthly or less Smoking status: Former smoker Non-prescribed substance use: denies use Meds Home Medications and Allergies Home Medications ?Medication ?Instructions ?Recorded ?Confirmed ?Type apixaban 5 mg tablet (Eliquis) 5 mg PO Q12H 07/03/24 07/03/24 History budesonide-formoterol HFA 80 1 inh inhalation BID 07/03/24 07/03/24 History mcg-4.5 mcg/actuation aerosol inhaler (Symbicort) dapagliflozin propanediol 10 mg 10 mg PO DAILY 07/03/24 07/03/24 History tablet (Farxiga) furosemide 20 mg tablet 20 mg PO DAILY 07/03/24 07/03/24 History glimepiride 4 mg tablet 4 mg PO BID 07/03/24 07/03/24 History metoprolol tartrate 25 mg tablet 25 mg PO Q12H 07/03/24 07/03/24 History ranolazine 1,000 mg 1,000 mg PO BID 07/03/24 07/03/24 History tablet,extended release,12 hr Allergies Allergy/AdvReac Type Severity Reaction Status Date / Time hydromorphone (From Dilaudid) Allergy Intermediate Difficulty Verified 07/03/24 15:09 Breathing Exam Narrative Exam Narrative: Good Willson MD personally performed the services described in this docume ntation, as scribed by Shreya Patel RDMS in my presence and it is both accurate and complete. Shreya Willson RDMS, am scribing for, and in the presence of, Dr. Good Robbins and in the presence of the patient. Constitutional Documenting provider has reviewed patient's vital signs: yes Common normals: oriented x3 Nutritional appearance: overweight Cardio Peripheral pulses: posterior tibial pulses present and dorsalis pedis pulses present Extremity Common normals: normal capillary refill General: calf tenderness and edema Right lower extremity: lower leg Right lower leg: inspection and palpation Left lower extremity: lower leg Left lower leg: inspection and palpation Neuro Common normals: oriented x3 Results Imaging Venous US: Radiologist's impression: Heat induced thrombus in right GSV 4.6 cm from SFJ and extends to proximal calf. Good Willson MD personally performed the services described in this documentation, as scribed by Shreya Patel RDMS in my presence and it is both accurate and complete. Shreya Willson RDMS, am scribing for, and in the presence of, Dr. Good Robbins and in the presence of the patient. Assessment and Plan Assessment and Plan (1) Phlebitis and thrombophlebitis of superficial vessels of right lower extremity: Plan Plan is for patient to return for EVLT of right SSV on 08/06/24. IGood MD personally performed the services described in this documentation, as scribed by Shreya Patel RDMS in my presence and it is both accurate and complete. I, Shreya Patel RDMS, am scribing for, and in the presence of, Dr. Good Robbins and in the presence of the patient.
--- NOTE | 2024-07-23 14:18 | VEIN_ITS ---
Patient Name: SILVIO CROWELL MR#: [id number] : 1965 Exam Date: 07/23/2024 Ordering Doctor: DR GOOD ROBBINS M.D. RADIOLOGY REPORT PROCEDURE: FACILITY EST [facility] - OFFICE VISIT FOLLOW UP COMPARISON: None. PROGRESS NOTES: The patient reports mild discomfort of the medial right thigh following intravenous laser ablation of saphenous vein. The patient did not require oral analgesics. He has worn his compression stocking. The patient has venous stasis ulceration of the lower leg has remained about the same. Physical exam demonstrates some mild to moderate bruising along the medial right thigh likely related to tumescence injection. The incision is healed. Thrombosed right great saphenous vein can be palpated. No new ulceration. No erythema or warmth to suggest cellulitis or thrombophlebitis Review of the ultrasound performed the same day demonstrates occlusive thrombus extending throughout the treated right great saphenous vein with heat induced thrombus 4.6 cm from the saphenofemoral junction. No deep vein thrombus. The patient expressed a desire to proceed with treatment of incompetent right small saphenous vein. VEIN/ Facility EST LMTD IMPRESSION: 1. Successful ablation of the right great saphenous vein. 2. Persistent incompetent right small saphenous vein. PLAN: Intravenous laser ablation right small saphenous vein Nurse notes, history and physical were reviewed and confirmed, see attached forms. The nurse was present throughout the physical exam and consultation Dictated by: Good Robbins MD on 07/23/2024 at 15:01 Approved by: Good Robbins MD on 07/23/2024 at 15:02
--- NOTE | 2024-07-23 14:18 | VEIN_ITS ---
Patient Name: SILVIO CROWELL MR#: [id number] : 1965 Exam Date: 07/23/2024 Ordering Doctor: DR GOOD ROBBINS M.D. RADIOLOGY REPORT PROCEDURE: VC EXT VENOUS RT LMTD COMPARISON: None. INDICATIONS: I80.01 - Phlebitis and thrombophlebitis of superficial veins right leg TECHNIQUE: Lower extremity burgess scale and Duplex Doppler evaluation of the deep venous system from the inguinal ligament through the calf veins. FINDINGS: REGION: Right lower extremity. THROMBI: Negative for DVT. Heat induced thrombus in GSV 4.6 cm from SFJ and extends to proximal calf. COMPRESSIBILITY: Non-compressible segments corresponding to thrombus FLOW: Areas of no flow corresponding to thrombus CONCLUSION: Post ablation occlusion of the treated right great saphenous vein with heat induced thrombus 4.6 cm from the saphenofemoral junction Dictated by: Good Robbins MD on 07/23/2024 at 14:50 Approved by: Good Robbins MD on 07/23/2024 at 14:50
--- OUTSIDE RECORDS SUMMARY | 2024-07-23 14:18 | XMS_ITS | CCD ---
Author Organization [facility] Care Team Providers Care Captain/Airline Pilot Name Role Phone RORY ZEPEDA Unavailable Unavailable BALWINDER MILLER Unavailable Unavailable GRETA GONZALEZ Referring Unavailab le BALWINDER MILLER Primary Care Unavailable Balwinder Miller Primary Care Provider [phone] Dolce, Morgan R Attending Unavailable Dolce, Morgan R Admitting Unavailable Bawlinder Miller Primary Care Unavailable Maria L Hand Attending Unavailable GonMaria L lomeli Admitting Unavailable Balwinder Miller Primary Care Unavailable Balwinder Miller Primary Care Unavailable Balwinder Miller Attending Unavailable Dominick Chavira Attending Unavailable Dominick Chavira Admitting Unavailable PaulBalwinder cowan Primary Care Unavailable Dominick Chavira Attending Unavailable [...] Primary Care Unavailable Balwinder Miller Admitting Unavailable Balwinder Miller Attending Unavailable Balwinder Miller Primary Care Unavailable Balwinder Miller Primary Care Unavailable Kimberly Jones Attending Unavailable Kimberly Jones Admitting Unavailable Balwinder Miller Primary Care Unavailable Ian Lynn Attending Unavaila Ian Isaac Admitting Unavaila Morgan Cooper Attending Unavailable Morgan Denise Admitting Unavailable Balwinder Miller Primary Care Unavailable Dominick Chavira Attending Unavailable Dominick Chavira Admitting Unavailable Balwinder Miller Primary Care Unavailable Allergies Allergy Classification Reported Allergen(s) Allergy Type Date of Onset Reaction(s) Facility (2 sources) NSAIDs Propensity to adverse reactions to drug 9 [employer] Phone: (1 source) HYDROmorphone; Translations: [Dilaudid] Drug Allergy [facility] Repository Medications Current Medications Medication Drug [...] Type 2 diabetes mellitus without complication, unspecified 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 1 kit by Does [...] weeks ago today 09-20-18 0 Active Pediatric Coylxwbu-Nopchate-N (FLINTSTONES COMPLETE PO) (2 sources) Pediatric Multivit-Minerals- C (FLINTSTONES COMPLETE PO) Take by mouth 0 Active Gcrtrtts-Pjf-Wc-FA ( VITAMINS PO) (2 sources) take 1 tablet by mouth once daily Wovitbes-Nvp-Oa-FA ( VITAMINS PO) Take 1 tablet by [...] 1 dose by inhalation once daily Umeclidinium [place] (INCRUSE ELLIPTA) 62.5 MCG/INH AEPB Indications: Chronic [...] disease (1 source) Atherosclerotic heart disease of [place] coronary artery without angina pectoris; Translations: [Atherosclerotic heart disease of [place] coronary artery without angina pectoris] Onset: 04-15-2018 [...] Wound Care Noteon 07-16-2024 Wound Care Note [id number] [facility] Coding Summaryon 07-12-2024 Coding Summary [facility] 64 AopeciorTNg3nCl+PGhlY WQ+HG4DJACjC43ffTBphL 3lV4GJGLqYPmfbSMPSHTm YIrFfqnOdJA0yeZAsETHs IC8+HI9hSJKcIqmflWZlf 6T6lJH6J80sxz4dBRuwdK X7BZNdZqCejnfju0gzoOs 6IDcuNmluOyBt YSOtbL61XJK7rO21Xh77e UVgiSQlp9txaCi6QqLzHK UcYDP4iYrvSNdsw1XvOHN vX16dhKRix8I3 JFMtuUzmfSMeBuPdlSF1q R1gPXfgpixsi7kizsyyHm w9ve76vWYvb7Q9lSG2G4Y pihJ4GYPlrJDb KsxtiJRTcR6ggqfji5ncc xxeEhHbJXPnFJu0UNd3YI GhkBrnDuGiRZ92MUS9UFU xwmZfJ4AtGLBu zSdeVcB9p8B1Nh0PO8EGZ zgeL4GKIXDRLQxglBI+PC 60ds54O0EqFcafPgb5HFO pNML4qVL9fJ2s LIXfAYfhg2E2qHZ7K9Mcv fYegk6mx5qzAPKdMWayI9 6xpSVkh8H6DRBolLU6BZS dkZqnPdMmnM23 Oyc+YEFesCxaf2PhZawmn 5bml6hvzTl2JzwqCCMutf TayQpuEHC7g4BwVd4xJZM edCM4nUD7fA1p SzBxVfV4MKboR193LfOnc HCrBfpiH47eV5EduUB+PH OvGgx3NUIetXnfRY0zJ2G hZGRpbmctbGVm wMbjSC9mGFHwulljCIPdk A9xIXPqO3t5CiNoKxE9RW kpC6LxEKVmbsvdGe90bY2 jIvQvRdS4BYen S3RbfvN4YYAlxBVtZVhnO WA9R42ej7Y9CINsVEBuYA V8iXS1zO5qpJwholswyTW mdDsgdmVydGlj YWctYAkeL203ZCMyzOchK kNvZGluZyBEYXRlOiAgMT AvMjQvMjAyNDwvdGQ+PHR mIMT9zLffKBVt mQGlGWlyJb2taGsknBmrD J7nYJUtqaeaQDVoiE1iGE KadPTihKjyEO8yFKWbndb fc664GnNiURZ1 XFWpnBCoM0TboM7kRdNbG IYlBKHmO5QjbTKfQSxtZ0 75ETnrGzI4WSLonpKhC2O sLWFsaWduOiB0 o9O1Dv3Rv0EafoaxM9Snj BVsWbJoZuxzHWg9C7OtMv wvdHI+ED28YXDhCU89ZAo 7IBP4tVreJNba CYJkQ3OwhS7kNjEmYMRlK GRkOyc+PHRhYmxlIHdpZH RoPScxMDAlJyBzdHlsZT0 vVk4qBHXkPGTn wZvhoILiHxHfp2gbVBBzE QhcZB6rlYdjA0UhgJI3QZ Zsg8l6Un57E13tC1EwdLT +LJEhlDZ6rCX7 vD6fFtFfWaW5AWtiJ318C dKqsKPhFlbpu4jvy2qxcF s1PaE3WIDiuvHzqIuuVKH 5z2PvRu65Z38w IHdpZHRoPSIxNSUiIHZhb Jksuy7bgX5pCq6+PGNvbC R9cQW5rM7oNvMhFyT3ZRe bT035BbQkmEKn Scodd0aaa6korWw5HqPkT FCllvKnjCjqFXT3v7PoZg 38H4QxtAxnt1KiFke2ds1 5rSBit3Y7jWP7 Q5JiBIGakldkfUJotJfuP C0yJYRmzqxeQJZwlM6eWZ JlF5b1NdMeKuT1BToxQ0L dvlB8VBRidMZt ITAwqOYHoB6qkufum2onp mezKgQyXZKkLGp3XJs7PM EbbMtrIvHuOJQ1OjF3SIR 7qPZpdP1pqJob lrttbO7vXjr+EDT9hIEio DNYCE7rIbjpbPM+PHRkIH H2sYtqZVxpFBZsrH9iGBI tH5e2XzYfYjJ6 QTcrR3VuqiN8WAHhiSPwA QBekYBJmT6huydco3xyih xgBzKnWPVxAIo3WVy2LRR saWduOiBsZWZ0 GjI6NMO5dTBmfE4jmMlgo gsqbE4nJga+QmlydGggRG I4CNr3O1LlQoz1BNRjtZs pWP2bhLEvEGam Au3cpEopkQiiXP6dZEIit lzmy459RtVxo8ocMHBmdT OaPGbfLTU0H11bg9P1DYP aXXBcWXN6aVP2 yL3faAdkenawvHLnoRunz oAdzCftLHfbJBrvU834QQ IapDjbBxWuIAt2F7KzAwt 1ZEOgiVloKG5e oQKsFHoiYw1swXqabTxrH E7nTZBwvvits626SaHov5 hlYHRfoRKzKZxuKKD1B55 ar1S1GKUrMBKk VFM4sGJ0pH7hhJcejhvys GVmdDsgdmVydGljYWwtYW biD244RIUifGjbHdScgDe 8E7YrDal3KOYe pFyiTO5rkRQyJFpnNm8wf WqxnPhyCN7iUXGlxvvac3 57UkBdf8gtKLVkkUUgPOh hSDA5H66fw8O3 VFZePAWqSAE2fJU1lP6wr GlnbjogbGVmdDsgdmVydG teADozBKolV868FDHniWt nPlBhdGllbnQg MOiuPDn2M8UxXsaayQE+P P69ZRJnQJ61hNVejVDgm4 balUm7RfVdNEXrTKI4jXd jYYuiu6MpHSKc I33qcCQdo6K2AKPweYugv AAbLrMbbMH3dN5yVHxwlg xgg2nxozaxAgctg5tzgt6 6cO40I24vYWlo ZHRoPSIzMCUiIHZhbGlnb w0ggN3zCk0+GNNnyMW3iT J2nZ6lNFCmQcA3QBwoD28 9InRvcCIvPjxj s6mxe6fkeKo9ZvC9WYGsf pJjaSluOKK7j3QdTq47N8 9sIHdpZHRoPSIyMCUiIHZ gmRntgq8jgL5x Ii8+UNZokEL7tWY4hK8aA eYbNcD6GIuuH229LvCnsX YgPxyxD01yW5SwvCR+PHR bYwk8BNVuzLci FN0bqDFrHQvsUy8fZRJ8Y gMuAuGkVStuU9XvUFEjxc tslpqqzAC7GGYqAPRvkH9 5Il4gbRxmYXNm vWTWaK2fbrmwx8yizgpaW iLxHQVbJVf1CKm3UYWirB cpZwFyOTD3MmM2XWL1mXZ hhN6sqZzxzfzf kP1uQ0OmLCCsqosaKp13w N1ePkWkJhT3SYbiMew+U0 LTGDERIfszTWWUV3cgEBv AWC34P1YdQav5 GEOvkSpaEU5caLOmABgwI r1omIqrvCiqWG4tEDOroj uwJHWppQ0gJHFkyRAkqCn gUL1mRREskagt p718OhUvTVZ2LYCzpASsR 6EyrS0vGgBrQIUyYJGpD0 TzqGOmPXtfW176GSvlDuV 8AUZvdvPhM9Xq EGPvvEekXjM9x3P8Ad7zY p8kMM5nTJH1LV59TH69hY Dzj4L0vSP3B6NsNQGoyza ognnhbNY8YGPq KZAbyA30hNPyBMatOn9yw 5T2y010USDiDEYvvM26Pt 4inEloFUDthHQDoP6rsnq zy5cyyotoHnCd OIQhWPf5ESp5IMTelJwbL dJdNEI5MoS8HFW8rVKquP 4kkNiqxtyxlC8zNsr+NTk hUIRhavO3N4Uc Ibt4QGJsnTjqOV8qtIUpY KctCf3blJujhThiFH6tAZ GyzrvbOQKbcN2fGCQwsPM tyWltKM8qSWSi cfscy040WuHuBZN3AULhz UJoL2WwqM0cSiVtPUHgIZ QaC6MsmPQyNMphJ371LAq wWsQ5MJHzopKl E7MtISVltZdtQuM4s6D1Q d6DXRtLLB15KF96mVZml8 S2jUP1N1KtTJNfsxqnkky mtWV9EQQhPPPe nU17eCKvWOhdOm9uy1G5b 580TBPmHYUmdG72Lx0blM rsYINewKWSjL9rlrjek4i vcjogIzAwMDAw DBs2JWn7MDUhlYaiMxRyX KD6KgY5PJD5kLXzvB2leS wejzxosF7bNkc+V4X2V6Q kPjwvdHI+PC90 DBDhXC39pXSrlRTfe2yff Qn9JhLxPNNlARS6rWljMH kmq1YcGZRsF87kqGRby1A 6IGNvbGxhcHNl NfOnnTB1pI7eUXgiqgrtc 3enwxksSjqre1fcdb62eB 90S75uPJolYGOkKUHjWPG tKQXrmIgugv4k oF3iYl5+RVXqwEW0vGW4n S2mAyXhIhX0VPsyM123Os YwnPUzExbgm6vbz3fjyQk 9IjIwJSIgdmFs hWyaYWM8g4ShYb82V67qM HdpZHRoPSIyMCUiIHZhbG qfjd7jiM9nTg7+QC1di7t qcl03qW18oVH+ ENPtWAN4qVlqDHycPDBfg C9lUOibSgW6IJWxSvRpzX 31vKVgLLecEe9bdDhnyYh uWL3kLSLtcgeq n773QlQcz2zzGHMdsDBeC VspXFW5M12yg6C3UXPtDG ZjLJV3mHV6wR3bwLxfbdr gbGVmdDsgdmVy tVbuXFurSLtfY141ZSJgl WplNuRpqZDjD9fthxNFXW 1lOjwvdGQ+VFMxLPY0iJi qSOylYDKicJ9f WPMaJ9i3PtBfVxJ5AZobP 4EehpZ6VDQoiKOgMYYboF MBbF7ipulst7kdeyhrRkV eRJLsLAv1HNc6 THDsaMeaTeUnVFK5QuJ2P RV4iGYwnL4srKmdcmsukP 9wOyc+RklOOjwvdGQ+PHR zBUA8cHbeYVgk ZBZemQ8eIFHdH2y5IhApF mF7SRhhW3UkyeL1JHJthP OcWVYwqLDGhL6nkwlts1q vcjogIzAwMDAw ZAs8NLz1DZEamGutGpZdE IN7BkT0OAR2kMUfdQ2clC lubilzeB1zFrx+TVJOOjw vdGQ+PHRkIHN0 nSouBYpcRGNzwG1rBUPcM 2x6NuLxMrM6MTqlW4Ftuq X4AIDsoWOkGSWuuTMIvG5 scauoz4pkoznu NlIaHLJuXGj7ZYm0SAFkd BmyGuGuOKE2AvJ0JFX1yM GooA0rhVjlyflmsR1vAmi +GJO4DKD9CP33 SA25O0ZsSbbdqPMuhOR+P HRhYmxlIHdpZHRoPScxMD JoUrTfnTpvHJ1lTp5iEOZ yLWNvbGxhcHNl OiB (more content not included)... [facility] Coding Summaryon 07-03-2024 Coding Summary HTMLBase 64 XmhhbfxaWQw3mUn+PGhlY WQ+GV8PBBLkN31xtAYjbL 8eK3SWOQnMCfbxDAHCRKt VTzHricOrXX6ndSKfXOFa IC8+EO7iLSDkKwurtMBrz 0R3tJH5P52ucy1uOOprmF H2QGQzMtBuoczty5sysJw 6IDcuNmluOyBt SLKomA58XUZ5sO04Ny70d WSmkDIlp3tfvCq1ThNhGN CyTRT1mBucHOyti0JiOOB wW99qdQQwz1S3 XXRxnPfudEMoMoRgpJF9d F5mQPowqdtnz2ywfytyDs h7vt76eUUjw9Y5lRO7S3Y jrxL6SNXsiOSb ZibfpNIHzC1fxwxmv8qsb qrfXrKkFPEzBPj7LXh5YB CghYjnKsAaRY02FJQ5VAY xfmIiT2DoKBKt aJnqXeH3q8G1Xo9LB2OBT czcQ4UEORJILYzfgMW+PC 57if73Y2JnSqiwLof2QLQ yWCJ8qTV0vM5o PRVaWIcog6L6bTK6P7Lqr pFeji8cy2kyGWOdPWyoP9 4tkOSmy8J7IMNupGF9EYW vrQreJyXbiE39 Oyc+QXLwrRvde8OtLuwyc 6iay3bjqQa8CxrzWISfux LzaXyvSKD2b3UzEt2eLND trHP2lIA8dY4s HiNbNvK3SKkgZ989KeNcp GMcDetwZ45zB9DeoBL+PH FzYcr1YQXrzDghBC7aW2I hZGRpbmctbGVm wLhhEQ1uCQVgybcjNONth V1tCSFhU0n5ZcQlIyO8BG vfU5LhPYQtdutrJy63yX2 aRgZiVyZ7VWrw V8UgovG8KCPzsAVzTGjzP CH0D91gj9Z2MYTiSNYvZA C8yQN4vC2ooYqnjmltqTB mdDsgdmVydGlj VWqvGDbhP919BMJazGbqS kNvZGluZyBEYXRlOiAgMT AvMTUvMjAyNDwvdGQ+PHR dISU4qTxyACKd nXMtMInbEg9vdRaakWzdP B4fSQMvqgzyNBJzdA0yGU HerWZebCckSX0jCCEnpvi lu169IpLdCWY1 XWWegKKhH8GdzA3mLkGyK BXqDEXsI6MnpBWzZVixF8 55UHepGwX3BLMcxfRwA6W sLWFsaWduOiB0 o4N8Ya6Yh7PbckceW1Mqc ZJdQeSwAtbsBDf6U5AbNw wvdHI+NR54AMBgWQ13MSt 9ROF3jZanSEyt NELkK1PkhL9oYrZrNWFrL GRkOyc+PHRhYmxlIHdpZH RoPScxMDAlJyBzdHlsZT0 tSg5aYALqIJQv wGwmlPKoLgAux4tnRMHjX RknDQ9ehDekU1IllZM2IC Hzf0i8Du84Y26zZ2XxzWD +MZSqcFF5oKX0 dI7eTxTbWzP8MRymE498N oBnaTNePrnoq5rym8wzoP o2SjG5TAUgexVxsMnkAMM 7o9WsBg25L15r IHdpZHRoPSIxNSUiIHZhb Jpkoa8hrV6lSw1+PGNvbC I3oSS4zO9kVhAmSjE1XKg mE820GlDdpAPg Gbvxk1azn2nraMq4MxDxP NNevnJuhHbaASY4m4XqVc 06Y8MggDwna3LiNcs0yt3 3pZSev0R3rOB1 X4KmSOGdjgccuUPfuEidY X8lIKMkmqsdDVIocB2xRH LzM4i3WmTbArB0BCmeC6I nltV8WCLafMMw JPQvlXZOvZ3jgdfre7dfg yyoWzDkIAVcQMf5KKh4CD KrgUdwUtFiRTH2VwH2SMP 7bGCrwZ4jlGcx drlhlW1uQkg+FRT9dFCwy VQHEA2tYaqisZF+PHRkIH Z3hNdyMElzUYYorW8iNZO eK2w0YrXqEzP5 OTayQ2FvrcM1DHXlhUToV PXcnVPVyF5mkafly6lylq seHeAwSTIdBCn2AMx0TJS saWduOiBsZWZ0 CnK8CNJ1aENemZ2yeEdav vidyY3gKfj+QmlydGggRG V4UOv0U2RrJbh6BFQynAn tBQ7nnGWuYWhx Eh1epUnulRthRX8aWPNma dmvz976LlLrr5tjOAFdgF WvZGrpAPU2M44rf5K3PGF kCXRdKWD6dIV9 lE4odEkyuvbxbUWuhCfyr eRgcQhbZNbhPGqgY871UO OqpXowOtJbLYi8Q9YzIuk 9HTHnyPuhSS3e cZTvLGsrXb9ovZjnnWsdX C6tBAHbygoco362DaFwf3 ewIJZuuTJfWRgjNJY3M12 tt9G3NYWbSBXk AHA8dSK3cR0fiNdkyhths GVmdDsgdmVydGljYWwtYW llP531DLSxdCyfHmQhpCd 9A7UeJfc8PWLa uSigPM9htROgJJjhQw8sg IqosKeiZP6cVBZprgsjn3 84HrBvr9dnFIFtyJDiQRv lFBI5C75do2B1 BEGsVSOhLSM2vPD3lL2ug GlnbjogbGVmdDsgdmVydG dgHIwhDWdyD730VPEieAs nPlBhdGllbnQg LLkaHTn5W2InWnlgcKZ+P L64TFUfMH31jFDeaHFtk5 eksPi6DjHcNWDnTJN8hTb lHJati9BrVZYb Q12wmKBiy2I4SERinCbiq PBfEnSitBK5cZ9eUTnvkl zek6oxxisuKankj3njxu0 4kO08W77yXDgv ZHRoPSIzMCUiIHZhbGlnb h4dyE3pRy7+GCVeuRP6eX L9oU7fBHCyYqK2FJmvQ30 9InRvcCIvPjxj m7lbl0ploWh9UaN8WBDfy rZbvEpaYER1z6RdNy59X9 9sIHdpZHRoPSIyMCUiIHZ trCvtgk3roF3t Ii8+XLUwwVA3bRV7bW2lX nWwDoS1XBnuR653NvJyqJ RcJcimW81oL0QfsGX+PHR kYrr9QOJysNtj JI6yfVOaDMjqPc8xABL3P aIkXkPcHDckX9KeCBNnjq ptmfpaqQB4ZDZfRAHzoJ1 5Kl0shTyyLTQh cVLCyU6pfeshj7rscunfN pWeXIQdPQz5ZOm5XZAkfI ncPqBjCRE5XjQ3BTJ6cBE plV9gfCswwpuf yA2bT0AiNHKjvosdQv75e F5hMmJwQjD4XLevIti+U0 AAHORNDbhlTWBMI8gfCGd ONY97R2OpMkp9 QAZztRxcUS9czUFpEDlsR w0nwRxkxNnsUI4sZPAmbr qeOOXevM1dRGBsfPHkhZy sOY0wTTZkbrfl o847PjOdBCW4GOGeuMKrK 1LwqW6fLzBvCQWbJOZuO0 KubNKbJDruW046KIigWsZ 5SUEhanEyQ1Bv SLNszChhRcS0z7X5Ex6cQ g3gKF5kUHU6IT56RC67qS Nwl4J1aEZ5M7PcAMHvbsw fkdqxpMS2ZCHk USMtwT45mLJwHJgxFy7ix 3U4n280MKGtKSPgtN66Aj 3jgOppHWZawDIKpA1oltc ep6ukycvlAnVv MWDaASf3OIm4KPMojGnoD vXvQPE0PnM9OLU5lIXqoS 1fbNnnjkrtlB6kLbr+NTk nKYGddfS5I6Sm Oet4YTDsoZutYC2tdEAvH KmmDe0juPrwqXklJH1zYK EnlzbjVBTutZ4iQLZynPP toYleJY5tMZSr iolqz430WtLnHMH0GYBjf ZRhQ0CebW6bKzCmOTOeFM IaW8OiuWXnIWaiA285IMs tCyA5PQCiztSn P3AbJEAwtIdrBbL1g4Y4Y o8VUIaFEM28NN18wRRzj4 N8cLX9P9LoBUHiiwtncow kmSK1NBEzZXPr lR16mVAcYAqjDj2rk0I1i 516YLDjHDHftL82Hj6egM vhCKCiqJQLnW4xnohvz9w vcjogIzAwMDAw ETt5PRm1CRJdaUvmYlHpP OA5SrR2GND3cQQtaG5drT ouqsjzeK1eHgr+I4B7R8I kPjwvdHI+PC90 OOVuTD26hIGuxWPmr2spu Ss0DkLjAWRqHYJ9gVthQS rko6McBXGtK44lrNKro1W 6IGNvbGxhcHNl FcLgxCV2jE9dYJaeylefr 2upcgrhIyqgd2wdot49qI 35T76tWRoeUBCiAUKvYJK xKROgaNjrnt3k qH0oDd2+ATObpQZ9kAD2a Y4qMvQfNiS9AZzlH928Wu YxaQJcWcgvd2uhw2ursMx 9IjIwJSIgdmFs xTezBDZ3k4DiSs74N47sG HdpZHRoPSIyMCUiIHZhbG yett6gbD3dHn4+PW7re2b ukc17gH27rTY+ NDIhTNW6rBjuEPbvXKLbt Z5fMKlcEbK2NNFpDkAiuQ 01mCReSEdtDf9hmEgbeCi sER6vKNRumijv r378ZnEmi0vgFAOrgJVbQ HbpLPR2Y22wu2P6BTPvXF ItVIF2eNC7uD5zsJmubpd gbGVmdDsgdmVy hIscMTijLJszU240TSSvl SxeFfPvbEHcQ0bnxnYKLX 1lOjwvdGQ+NLSkTMK0vNf dWDewEZLjvX0p EBEcW2l1AjUnCzT1URsyI 2YqfxJ3RTMksLOuDFKzkU ESjX4wcarix1deihfdGiJ tSRXfQOj2ZLl2 DMFmwAfyOtZaGFJ8SpL2V AF5mUKopL1ypEtzqwmcxM 9wOyc+RklOOjwvdGQ+PHR uTAP1zEsoISuj BGYawW8oWHRuV0t1QdKuM xH5KQecZ3UghcN0CUCvqK LeWDVztYEYfG7qsndif0o vcjogIzAwMDAw LUy3IBb7VPBxfMkzJrVbW CJ4GiR0GOM5rJAnjM3yvR pnhuireE1cFil+TVJOOjw vdGQ+PHRkIHN0 zKuiBDwbMUSayF1bDSQcB 6f4DnEsPlP3JFzwM3Lkhi F0ZFVoiSZwYKOogKPHhA4 oflxfz6nshwtg ObPdZLHlDCu8RMd7TOSwo NgfCgQzXQM2MgB3KCI9gK NqsF4phPefsnignT7pWna +YJH3BKH2SD27 XH56D4GvKdzwhUPauCL+P HRhYmxlIHdpZHRoPScxMD GeEcBwlStsXV4dSu0kTTJ yLWNvbGxhcHNl OiB (more content not included)... [facility] Wound Care Noteon 10-14-2024 Wound Care Note [id number]#1. [email or web address] Normal [facility] Coding Summaryon 06-28-2024 Coding Summary HTMLBase 64 KilpmhrnIOv5tPa+PGhlY WQ+TK2FVSHmX81jrWIepR 4kD2BPJMxXFrdoXJXUNIz HFkFwwxGfSL1irJKyMKIq IC8+HX4vGLNwHkjaiBVtd 5U0nXJ6P94eqc4nHMkswV U9FXAdAeJqemffe3eanOy 6IDcuNmluOyBt AKFgkE15EOJ1lY14Qe38z HHycQXim6mwtZn4ZjGqFR CcMAE0oTbgHCdlw1WpISF yL71hxFMmd8Q3 RMKecRbmbZZpWcRuiKL1n M9rUHymedzty3grqorhTa m0ek04aMAlr0M7gPQ1K4W nvwS2LEKpfYKb ZdserJXFgM9zynkfg2nqc iicYkQoKPFbSVx9UUj3OU EkeFmtPgJsLU63FXI4XKI aqkWyB4SqYDRa bEkyDcZ2t9N3Qk0GZ2ZMT shnF5WYXAEWVKodeKJ+PC 97lu56W9AeNkdrUob3DXN iWBO4gLD1jW2r KLDfTWgig4R0uXF8O3Ayr cHyds8rj6dzARArAVjuT6 7jbQEwr1Z3JCBfgEL1ZAZ luIfgQfImkI90 Oyc+SQSdaSaiq1UgOvwid 2dyq9rbbCw2KdmoKMHtng FhnCqlWRS1l7HlWk4aCDC mrYZ0cIW6oJ7l JuZcKuZ0IMdtM124DlWbn YWdLuiuN88eG1XqjOZ+PH TrDxm9BAOghMgjAX6cN2W hZGRpbmctbGVm mEpzKY9jXKQvrqqaUMJjg D6tSDXyE6g1DpYiAeQ0LR foY9PkKXKkicmnHm90vD8 lUjJvQcH7LCbf X8IldhC9SJAcgHGnIVrqE OR9T02ya0Y7PWOcWPKiWV A0dQY4jO0nqWbtbftqqLX mdDsgdmVydGlj TOdjHUngP691UPAatHimM kNvZGluZyBEYXRlOiAgMT AvMTAvMjAyNDwvdGQ+PHR eEPT4sXowFROd lOIuCPdgPh3elNpzoEvcT Q6yWFTvzsyeUJAufQ8mLC RhtLCuxAlaDQ6iOJLqvuc zr075SlMnIEV4 RCBquQQkU8RaqF8jPdFcG CTqSOHaT0GcjNWuJVmpH8 77LYywAtH3LDGsmjJqT6A sLWFsaWduOiB0 q8Q2Xp0Az9HzfurlG9Oik IGxTjOkLrzwOJr1J5GrFl wvdHI+NG62MGBwAB03LTp 9FZG7hVajUBpy YSTwU5VkeF5oLoAkDWZrO GRkOyc+PHRhYmxlIHdpZH RoPScxMDAlJyBzdHlsZT0 lQu3yRUQrHNVv hGftdIHrTeEtq0liPWSmT KwwEM6swXtrG9LhvVA8OR Ygx3b5Qr38U45hW9KzyFC +RTAaeWK1mPA6 aD4bHdTsPtG8YYrqN663S pJcoAJjDoufr4oxi6uptG g2YyQ7MISzbrUesMbcZVW 6w4NuKs13W76k IHdpZHRoPSIxNSUiIHZhb Obsqr7lyI2kYt9+PGNvbC O5bRJ0rZ3bLiXeJrN3PQt zM746PpJfvEZz Ogqfc3nlr6edpRw2IsYwZ TRyplHqsHqhOZH6v3KgYw 58N3GggUeoo0IsVrf5xp2 3fYHhc5Z8kOQ9 C4WpQLQpgsemoGWpxVhpT E4yKYOycmteORKglH9cVS PqV6h1IjOfOdL3QDaxT1R ubkD1ACAqfQZz AFDuaTOMnK4woxaob7qsq rcbAwQpBYCbJGn2REx5FK XshQiiMrFpGTA2MzX3ENV 9oFBdrT1tqIqm qagkpG5qCir+XBQ0bOBbr IAMWY0nEpxmoMW+PHRkIH X6xEpmHXvqQLAzvW9oYGT xY0a1YtUsVtH4 ADuoQ9MytjS8QQOujDKaK AVsbMATxX6ueqwbc9jznx ckPvFvPXKjIEt5HJl6NOM saWduOiBsZWZ0 RoY6EGR4fBWgwU8prDpll eciuU3iOpf+QmlydGggRG N2OEf5R4VbJkg1HPRlrDt jHL2qjAMxMSwf Iu1ypJvnlGyqQP6hOSOwf xxie843XsFwl7pjURMdhP IzIJuhEPU5Z83rm9O2GPD qZERsNIO6pRN4 bY7vqAfkafpbuNNxmRpma wZdaHqwMTusZYryB577SY SdrYuwBaLnHKl9Y2OzJvz 1VAQgsIuyOD1g vPZyKHftYx8iiBaidDqmR G8vLPIbhzjxj128SwHjj8 qqLYOghZMsLMqnVWH1C10 pd8K8WXTfJIWn ISS7dDR3zV8fuJuplyjbg GVmdDsgdmVydGljYWwtYW mxA334OMFbcIqnVtUvzHi 5S1WjXgo3HFBz nTzaAY7avGIbJUtpXv7kg XmmqElvEJ5tOFMmixgyj1 31GmMif4fsRXOkiBWeBNj qCCO2E57sy4P7 FQQbJXTnLRX5oCB6hB1im GlnbjogbGVmdDsgdmVydG wkVZinGBuuF662CGLmjUd nPlBhdGllbnQg TDstRAh9H6CbMbjohJV+P O54QDLiBP88wAVgdXLue2 mnbCq2SsOpFMWnGQL6qHs xDLout8CtSUWk O41bgUUvv0R4GAJarMtyc OQeJgCzmKW4bT6aPXtthu vav1cetcxbOsiuu3qseq6 0xS46U77pCWry ZHRoPSIzMCUiIHZhbGlnb b0kzY7vOj4+XEJdbQJ5lO E3yI3jGBWaGkV0CCljK39 9InRvcCIvPjxj e3nkx6tewJz6SgY7ENRni zQiuGunAMA1e2IgVa50Q8 9sIHdpZHRoPSIyMCUiIHZ nsUtusg5pcA3r Ii8+RLSgtXS0fRC2lJ2hO aFtUlB6ZPtiF886NiLmwK CtRkzvU54hW3YazJJ+PHR uAbe1GPZarTtd JX1ciVCzJAohAb0uCHS9B zLyGqDrPDazV1AsWLDqzy oanwgemKH2ISGoEPXmbV6 9Ez5eoCuhIBRr zFAJhZ6prufmb7qlzlbrE lScOEMmQQm5OJp4MQFweU krCuJxLLE6ExT1SSV4sQN ueW6vnGkbyopm fG5mQ9NgQBKtqhtdSa51g U4gGiRtGnX8WKnkKji+U0 IYIMRBVskeHVFNI0xsHZo ZIT60I4KyLla6 HNExsYxcQQ5lvCCsVRupD o4sgVznmYsiCY8oXVHfvb byCZYkfD3eLEFqkDKnmVl gPC7yKVHmdwda a030YuWcNHC0IMMdxIYcS 8QkmK0fEdFgPDNvKNIyK6 MpjVMwNYqzI118SGfdCrK 1ODKzuwBkR6Pl SFFgeEbzRkT9b3G8Tl8bO t7mON0zDKN6NN79UE70qG Uzu2J3fJB7A0QmVQGppjq omcdujNW7VCQy CKXrcW39kLVgZUxpNg3wk 7M5z628MMQzHQKruG89Ga 0blEvpAQTsnJFChR6zfbu rr7landfjNqAk HMTtQLe2ROw2JMUblXofB aPoCPK6PeL4GPZ0qCIyeR 9pqVyxpyavlY2fEdb+NTk oAJCnzpW9M6Ey Pva8LHPrpWteBJ7avEQdH FugNo1lmOwguDtkTD5gLH JeddxtNQUjmD3jALGrsKC avPzcVA8nYSPf rhddg767PlKgJOT8XPRxp KXlO3CauN8zPtHbVSCpLN NfH6BieZFlYFyfR952YGv uHxC9MDNnniWo S2MpETDveErmGhX1b6N6I i1PRIjGGT87QO09uVKzc6 X3jMA9O1ExPCMdouxjzkm hmDP3QTCcOPOv lM87wMCqBTkeIn6ao0M9g 688ORJxKBGjkJ60Oc5jnY afBHOvqPHGtM3mxsdis0j vcjogIzAwMDAw YTz2SEr4JLCqrVpbMaSyF WP2LkJ1FBG3tXSkbG1gqX qpuepfqP1lYem+DT9hyzg lufX0CR11YB90 G2PjErmjaDLssEZ+PHRhY mxlIHdpZHRoPScxMDAlJy UjbLwwRM9cSi6dGDZjAOP vbGxhcHNlOiBj y3veHCLpEVinAD0vvTixQ 9JnnLL8FBAzl9z7Qn45P4 7kB9QqsQX+NOBenXX8oBR 7dX4fMzGgJkG2 YOgdU597FeYfxMKcJpjrz 4xha0pazMl2KbWeHWCviy DvhWwsACQ0p7SsYf14J86 sIHdpZHRoPSIy KAPtOMJipMoxyv4rlA8yV i8+NFGqxMT7qXD4pR0eYz IeLcA0AKemJ347NlYaoOW xYwezE76sN4Ac dXA+FRTrRmo9YKBxcWqgC V8juKGqSEdzIc9oHPA0Yn JpLkOkDZnjP9PbTDEgsla bieaihRI5XXRq JISvhV39Lq6tfQivIc2mW XPfGQW6YGJhrCKlZ9ObdA 1bBpOyOSZwFJQqI5OgdRI pXGqmZ689TCpt BaZ3OPEcgoYoK8EzRVCco GjwMdV9a0H4Yb1ElAfpgZ LaQE4aGqBwTDr7X4PbUyr 5MQFwiFurLH3c xUJvRTalGj6zmIrvxExnQ F1zJYDteuhae845KvPjv9 txSIPybJXySXwvCRU8C81 xx6A3IZSeRVEi DSD8wGW7gL7fjLtabeegm GVmdDsgdmVydGljYWwtYW uuX371FGDeyWaaLmQFMnr 5A0BtUcy8VPBz cHqpPB7fyALaAVqyJu7un NjkuYuwVN5vNIGrhukqn8 59NaTad7geHRQwmBRsPZf zUUJ2P75yt1P7 FLNvYLEhTXJ5oUH7tH7yh GlnbjogbGVmdDsgdmVydG kzLYkxGSqeN878TEDmsZr rPm6MWou3P5Qa Cor8WJModXkkEG9qbNJlG MyyNr6vrIxvfOjkRL1mNV Ibmszjz784SlZly1rqABH wcHQgVGltZXM7 Z82xd6O5TJFrCEZpWMZ3m DW1tI4fdObhqkxihXFamU ciljXxtParZLatLRduV54 6IHRvcDsnPlBh eWVyOjwvdGQ+TL44cu31I 7ObKwmdWpg7ITPlYPX2nS A6yQ8pPKYnYOxyd2H3kDK 1E0HvcdNhjb1c b2x (more content not included)... 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 Thanks. [Electronically Signed on: 07/04/2024 08:25 EDT] Kimberly Jones MD [Verified on: 07/04/2024 08:25 EDT] Kimberly Jones MD [Transcribed on: 06/26/2024 11:45 EDT] [facility] Coding Summaryon 06-25-2024 Coding Summary HTMLBase 64 ApnnlqluFLn3xQq+PGhlY WQ+TX1JLATvW48dfLSsiG 6rE9VEZIjEXfpkTQJBFNs YTwCmsaPbJJ4yiLCzANZn IC8+YN8bFBBaTglvaPClk 0W1jSF3R44unp3jRCacrK K2AJXoFyKeembnx2ddfSs 6IDcuNmluOyBt EAOfeC36QLV4rW73Hw85x UPzwIYau8wowPa5HbEaCE BgFLY0qPdhQJxth1PoPAG jF95xbAZys4Y6 MHAzzAgfpYFsMqJebSS8f M2aELlzabgwf9vbfavsAp b9rc93gFQky5R1sWT6F0V xjmN4CUPlwEXx BltqyMCNoS2ugejrt3ovl yduEyNsTXMzIHl1IRk4LF KhnQcyVcOeZG96XZC7MPW zrzCeE1RyAUWe sCyrDtP1v9O3Ys5CK4EBP glyL2CKXIVURZybrUY+PC 14dz25A6YhBvleBqg5ECT wPVI0aQU6tQ9e ODCaHTarg9H9jZL6V8Gnw pRvfv6nr2aoXVMsHVqnL1 5ovTBhu1D1TPYdfNI0NXR lwUgkZhQbsZ08 Oyc+ZSWhlKgmi1LfGgjjs 1woa3xkpKc4UbseMIVeen YzzUxsKAS8o0QxFs3bWEF brES2uPY4aH5n UnBoOmK7PBaiU828XaEwv QTsLchjJ85tD5ImkYI+PH NrUbm2TIMgwRosRA0kI8J hZGRpbmctbGVm tKwcXK5eWHUcmlcuURKwo M1aBLGkQ1q1VgDcXxK1UW gzN2WiDZFmrbwtFy80iP3 kInXpDfF1HZbu L6HwfpF7HSDgxRMaWRcuY XS1K38zj7W9GDRkZGFcED N7fTH6vQ4alRmacbjsmFA mdDsgdmVydGlj SDibBOlvT531IWUpyMvdB kNvZGluZyBEYXRlOiAgMT AvMDcvMjAyNDwvdGQ+PHR hCQI4qRvyGJEm tZSyBVweCb5pdZmzuDxkL Y4xYWXpzcekBKApaM8vEF BnbXFedRzwRW0oLECitvi yj146ObNoRXN0 OUNemIXtO7GsrX1aDhUxT KYlGLPjZ9FvnNCdEVfaE2 75QHubMxO8HVCsnrIiV3S sLWFsaWduOiB0 i6F4Bx6Uf2WehxstH1Vod NUtSgBzAljdOMz4C3ZdRf wvdHI+NC28BRUcQS28DWn 2OJV3zKkdTIuh UDMmI0NpxB1mAcElSQByM GRkOyc+PHRhYmxlIHdpZH RoPScxMDAlJyBzdHlsZT0 zMj4oRLBoHBVl yItnsORxFnTan9wcSIPhI TybSO2arGknX9AefSI3BI Obn9o8Oj31M02jZ5PvvJL +FLHrqJA7sXF4 kF2zLwChNcI2KNysL187N cRcnYKtWvbpm8aln0agsU h0OxX3DGPukmBsoHbtYGB 8l9MiPk49I26r IHdpZHRoPSIxNSUiIHZhb Pgxln0ihR4gMm8+PGNvbC J9yPA7bD9mQuQcWzR0ZYw bN435XbOtmDUe Hsbus7hrn5mlbHa8XvDwZ GPvggZybTrdDGR8u4IrAl 93Z5EfkXuao7AeLbo1io7 9aDRzx6S5pYM7 F0ZbGEXkhannxQOfdGbhO S5iKWFadrvkHPGmgB6eDU MeJ6h5CxBdSrO6LXshI3X ptkM5NCMvpTZv QESesVWHpJ6neeqqs5vjs ovgEwVuYBRqVDe4CEd5KS MhlMxqShDfKIT0CzJ9OWU 9vYUogO1tbYmc gsozrW5lGlj+HOE1rVMpa CHJNH3sBzqtaFW+PHRkIH Z0aZrcASrsBVPrgO9sWSM kZ0w7BmKbKnD8 CKwcB0YykiL8POFcgZTwO UTifBBZhN6ygckeh7uqmq cxZmPiKESxOXw1TCo8FCW saWduOiBsZWZ0 HtK6HOA7eILhaT2viNgpz rwbvR9jUxw+QmlydGggRG V9RUj1Y2RtKvk2MHKtyQh vKU0vlBBpXLhh Oa5wrYfmuXptCI0kJYRwa nasn981KxVdk8whYYQalF VnLKqbROG2F40py1I4AKQ oSGEqDYX9kSJ0 dX2ikBythvopsUFdbWqik kJagAorZJhjXRfrZ415MV TnzQcjOqFhQOe3D8KsZsb 0XBBawCyfWI3u qTXoGRviYl6mmXtrhLpuC K4gZUSzpcuuv137NbVjv7 kmYWPfnBMqVCraMSX4Q24 se3K5BEPrUODh QYH1tQE7qO0goBsfhzxbh GVmdDsgdmVydGljYWwtYW qvV145ZXSlsVpgHiSrqDe 2A3SrCwg5HBGl lVoaRN4blQHeIFvaUn1vy CsdkVueBA8pGCXgxgedf3 07GfAhi9kkCYKsuQVtMMq rCGC5K50zd3T4 BDUfQQEaIIH5gDD6pN7id GlnbjogbGVmdDsgdmVydG noRPofRWvjJ234MJWayDy nPlBhdGllbnQg UHqtXAm5U6LtFlfxkIW+P A16TKVhJP35wXOclVZpf1 cekEq8LxDrLQVwOSJ2uFd xXVxgm4ZdVFGk O29zpIJcf2H6XYCnbVwpi ZGhBzDwdHS8aT1wSWwann dle7ckrjfhOffsa3vydb4 8tF90E24wVEim ZHRoPSIzMCUiIHZhbGlnb e5juV8kVx6+ORVynOV4aJ U6eU7vBPFzWuZ1YYgsK24 9InRvcCIvPjxj m3nye1vnxOe1ZbE7NCTex pEfcZffKMN8g5CmHq70D7 9sIHdpZHRoPSIyMCUiIHZ wiUalhm3pqI5d Ii8+ATYygDL0fHP1eU3rU fXmFhE7CPixH645MkHlnZ UsDiknV88wC7PaiQF+PHR tZyz8QIZhkZbl NU7mtXIoMXxdLp1dXJF6A sNkHnBlFBalT5WoZXErpn hloyzmnZE6ZNJoSBKvyL7 4Oj3bqYumSSFh eMVQfO6izdapg3lckgniD uNeZTAfGXk6QVx0WPEqpB tnRoOfBXT5MvZ6EAB3pGO kkB1wpVapblwh iL1sN3EkKBIvbhchSi60q L0jQtAwKsD2BJqpNwp+U0 LAMASEQhguPQJIB6mjPYi DWW05L6GlDcs9 FQSbjIvgCH7ahMTmYGbdJ u9ynNkgrFzwZQ6sPGLsbw tnKRFixQ6nPTHgcDBlcPr dFE5mWGMtxkot f676SiLaFEM0FVXkkINoF 2ZlpE1mOcLfQTJiSPRvL7 LubQTqFMiwI807NBwcXeW 1SGMiibXvN3Ls XLEqgSjdIsM5l0I1Ip0nI p3dFN9bFKX5SK86II58qK Jxi3O0qCC1B4SeUODapgu xobxcpOJ6MECv IJVkaK20gLDsUIqsZu9sl 1B2c179RIWxVVFbpF95Sg 8kfVglIYHtjYMOuK2cakf uw6iwkhfdOzGo AJIaITf9ERs7VOAjoVfzQ bYbBRN2XtA3RLL8tWYyyX 2fcBenruoyuL2bMme+NTk cRALgsnF7Q9Gl Nen5NOSpkBihHE0hhUQqH UkeSk3haYaogBcpVI4tUH XzbqvdKYHyiY4qIQOaaMM oqCttES8qYNFy jliku718EeOxTPI2KKBuf WOwN9RvbD2cWvXnMQHfLX CkX7IhpJPgMGndZ818UBd lBgA0BTKafgGz F9QoLBZrqZsrMyT3v6S8I r1FLMdCDZ85CS25bKPje2 B2fKW8N4YnLQBocxvmpwp tbTH7WZPhFNYs rZ77xSMqUHghUe0lm2Z1s 906MSQnZZNtjK30Sq6xmP ukGQIrjZKQrC4biyhed6e vcjogIzAwMDAw ELp5LCb4JEJawEirVzGqE RD3GfE3DKK1jASojT9bpG zcnaojtC9tYli+Y9I6P0G kPjwvdHI+PC90 BTRnKY19zDNcdLUog6owd Qs1VoFsAGTbFWB4jTfxLU lgx1YyNRXoQ31gcFRwi6Z 6IGNvbGxhcHNl WyDwlYY4mA8iTZtsbxfad 1pgidbkRtmvj9lzri47cK 19T46hAYrrOKBtOFAeFAX gMECagCjjzh1s nB7hAd3+CIGtrOE2eFU8n Q6hVfPlMeL7HKyuU952Ab NtjBNbKkcnv8hyo7ffjOd 9IjIwJSIgdmFs vQtzZPN9v4ZyGo12J18rB HdpZHRoPSIyMCUiIHZhbG fekp6yzW3zJc9+CC5pb8r njw91eR60rYQ+ HGMaMVZ4xRsiFIamCCKpd Z5rXWogVzU7MBFhZlQwbH 34tCKkGRshBk2yhCprbAw qXW5fCKYfhvie n439NbLnk3qxIMWflKSkM RkeNII5F66fi3F3ALQjKU LySFD7oDW7pQ5doTfklbj gbGVmdDsgdmVy fYpoZBwyJAavL111GCSig ZzpNvRvmJVgV3fddzWLYW 1lOjwvdGQ+LYLaVFA7pPk mBWceXHBslU6h JMEbD2t0MkRfDrP8ITyjP 3FmrmB9IENgoZNaFLJnkH ZQaN7zbxvko8lspjhlYsQ tIEFhVMl3CCq3 UXQwtJgcArLaREY8NzK3W SB4bGKfxY6bvHzqzglelJ 9wOyc+RklOOjwvdGQ+PHR rCKB4xDtxKIov GBCivL5jJTElL7c9YoCdS zQ3ODwlI4NgetR6JTBugR HxUCEvnYWJbM3ffstpg1e vcjogIzAwMDAw VMn1FMx9IHTryUauErEpE AY4IjA8TCY8zKZnwS8xlR rrstagzU7lAsb+TVJOOjw vdGQ+PHRkIHN0 bFlbWKjvTBQuoG1uWODzH 7j2UwPhAiB9FPtyX2Dtbs H4DMKjgYNqBFGqeFUVqH6 luqdhq1fxnijr OyMuPEYeWNo0IOe7UJLxr CdeQmLtONL2HaI3TKE2qG FjgZ4eoYfwvterwN5lWku +QZL1YIM3DM89 BO05R0PpUylwbAWtaPC+P HRhYmxlIHdpZHRoPScxMD YdWnKvnBreMH4wFj5bTWS yLWNvbGxhcHNl OiB (more content not included)... [facility] Coding Summaryon 06-14-2024 Coding Summary HTMLBase 64 IzmwbsdmTWh7vCp+PGhlY WQ+RG0YVQLpJ13lpJOokZ 7oE1LNHGpQQxogFLGLLHt EEgFmlyMtWY6flERvGVLj IC8+EU9dGQCdVmupjSFit 1N1zXE3G90wzi0aTSdyoJ P9RUOoEdNigvohi5tjkEc 6IDcuNmluOyBt VPRdwS32BUB6wI78Vc70h ZHvfFJgt3snuMa8TiClIK XlKPR1aBolCVhgz8IwWIM kL11qnRQxn5C0 VOGngFyunMGaRxSomNW4m O8uLEdcznkju5iipdxlOs i7je22lPBlz7N8rIR3S6O bdeP3SMEwyGBc UnlejTRCgP5nfeuiu2fmu zsuWiOtYUYwRKj7FXd8OP WrcAvcXjOdRG08WTX6LSH rxyPzC7BbRSYu fUeyDqI2z6T2Fo1CB3HGP hvnI2DBLGUBFMqwyWJ+PC 11vv89V3MaIvogGdm7CCG hWGC7rVD5uY6s QXSzWRyhw4F8qGQ3I1Kzh bYbmv8xy4fkFXHqBCgqL5 3cgQGeu8F5YYKbsFK4PHR vpHnaHpGvjR83 Oyc+ULSfdImdz0QzOqjkv 7gys4kylEw5SicsCYXfut SxqNddBZJ8a1EeOo9vBJO leEL6mLZ9wP4b VpNaXcQ9ZMlgE937HoZlz FCyShgsG87vX8XfiZP+PH DtIhq0FEXbmUqmBY5zX4Y hZGRpbmctbGVm nVigWR2lGQCrllqoBGBzr A1qFCWuE4l3BaYrJxI2HW ihC0LkKWFlxgavTd89jR6 aGcVzPcD5OKdt I4XzmcK7QBDfiOThSXfvD UL7Y44aa7B1ARUgLKKsJE D6nSS5tS1hdJfjykaduMM mdDsgdmVydGlj UTdrDIfxS351QWVpqBntM kNvZGluZyBEYXRlOiAgMD kvMjYvMjAyNDwvdGQ+PHR sPGB7uVytAYZr pACvJGirUl4sqZkztYffA X7mAKErlmsyKFJpqW5dWE ZvxSQoqAriIM2gVEVsitz ct655LbSxZSH2 AUQqzIUyV5CvnC5gDiYrX ZCvWFUyE3AksRFtBKprH3 18SYdbAfM1VBKpdnTjY1L sLWFsaWduOiB0 u5V6Nm5Vq4QkxxlzO7Qxq HFqYhDmRcqnBZk4E2EdFk wvdHI+KY88NRCrJM41GEn 8QPX5kBupZGfe MJWwG7JceT9tXwDlFJHrS GRkOyc+PHRhYmxlIHdpZH RoPScxMDAlJyBzdHlsZT0 zTj6uSBMwLDIh qCzvdYZnNgEgr3ggFQQbA DfhLB0pcKcyK3BpqBB5RA Fuk5m7Qh26C12oN6LpeXO +TXZsiSB6pXF5 hT9sZgHdNxG4CXtvD292D cFwqCXpLfaae4ddm7cbuF y4CnO2HDNvsqZevDleGBF 1w4HaKs61X60q IHdpZHRoPSIxNSUiIHZhb Iwnbx5axT6qEn0+PGNvbC D9pPT5dP3aBxGoLcC6PJe zR304QoUvtCGn Isyko2vtv1gglLc1FiBfU LTyxcSeqFjvHBO5b9WkAi 54B0KiwYvuw6YlLqx4ah2 9dRPel4I9nFS7 T0KjUQSkixshuAGliKejE X9dHPSkttkfJVDhrQ7nTN HqE3x4AjZlYkB4QXtgD1R ycyH2PSFykYHa LLMrwOAVsW2djukli9kqn cvdBbGfXYKhVJe4OLc6DK FlsXixJdQsMFJ3TjE0NEN 8qPZycT3mhJbp kvepkM4wHoh+FTL3zMEmb UAHLG7kHkzkjWC+PHRkIH Z5xKhgDAfnIWEtvK0eJDD jI3o6LqImWmS9 DJdsO0PfhvE8UAItlQMfF GOisWLXtP9atmowe8xudn xwPbHpZXHxZJm2DRa3HMU saWduOiBsZWZ0 HwB3UGC6pJEhpI4cvJfuv kbpdR4qUsu+QmlydGggRG J5KDw3W3ViEgh7ONUcuGa iMW7ryCOpHUda Qx8xvVnvgIydWX4jIIJgs aohz317UbBel6tqQDAsuS PfEKcdMAT5P73ux2C1FNE kRXDlBJB7bWW0 jZ6qsUvhsoiozZLbjBjil jNjjUfuYUqfCZzyR833VO MctXskMzAtKPm4Q9OkBlj 7MDQywZegRY5e gWMfZFmsHi7aqEnnrJfxE R4uLVGsikmir135SwHwt3 mkKTVlxMJhYUvtZAM7B59 zt0X9EPNyDVMl LDZ5sTJ0vC3tcLudlxhds GVmdDsgdmVydGljYWwtYW vvB393XZMzpXfmPrCfpQg 7X9PlFtr1CFTr iOfrKL9zaWNuUDknDu4ll BjhfXshHC7kOBKlbzaks7 60LrHjk7huNALwyTWuSIz pPBB7R97ty0R5 CEXiRRKpZTE6kQT4yZ3dv GlnbjogbGVmdDsgdmVydG hyTLigSQzwV229XKDbxYk nPlBhdGllbnQg FUevEZl2G8GeOrgboFE+P F19KWQdXJ72zVObrOIym1 gtlWn1BwIaYNNaZDH6xMc qXPbnv7YmCCHi M72haXWgm6E0QIGfvCpwb YGgZfBhySN2iC5lZPpzim qqy7rmxyyfPdufm5bcxr7 4kW13M04xGShn ZHRoPSIzMCUiIHZhbGlnb k8bfP1rQc4+CQQclQR0eM Q7mB0oPVBiIfI4UElmX33 9InRvcCIvPjxj r3xum1wnaOy4YjK7WWYgs eHzrShsMQM1r5FnDf33U6 9sIHdpZHRoPSIyMCUiIHZ phVkzxv3eoP8q Ii8+EWMkpDM9kEK4lR7fX oQhRjG7UNdsI111OtSrtF NmTrpbO57kR8VapVF+PHR jPyz0QMSetTth RW0viOXmMKhfMk0aZPH2F gYeAzSkLFvmI5WxUYCznb xmnlbrlCF2GKFcHRVqvE6 2Hc5awDbzUPXu iBPUaP7uxzskf0zqgrslB pWtYZUaSUe1SGl4OERrsX ppKtAtTYR8XzK1UIU1cDQ zhI2xsJqhtvnz wJ9qK2IvTCGdipxhFd06o D5fSrYiUhR2UEgnXgq+U0 EZXABKUiiqHTIHP0jcNPm VZM10D1VcXax5 TLUaiGbjMB2jgBLrMLhwH g3kxPjlzRilJQ0uQIUsxp zdZMAgcP6vZJXxyZXapWr nMP5uJPVvdfir k361TkDmHBX0HKZseGTdT 5BygL0tDbRnUGRnQSQkR2 IdmWYzLWyhD148CDmoLeV 4RSMcojXvP3Dh CEWivYqzAhL2i1C3Hd0nT f5wHI5sDNZ3FK58JW47tA Gsa1Y1rQW0H4QhAWQdxqv angiowNL2IKLd SGNzrV81kCRuEJxwXt8nl 1N0o903TMDaFUYpqJ93Dx 1umAesMUDxgWJApC5sthp dz5hnicbsOnYn JFJrYTv2MNt2NMFajYmbG kJdCQJ4GbM8RGW0oHVstJ 2ixYregbdagC5hYdj+NTk zDKTcwcI7H7Sa Vyh3FNBfqDemUU7hnHJlU EmhBt0qyWforNucBZ6dBO HahhthACAvdH1lVHGphEE tpFncTN8zTMHo yeajy883EaCgIST2JTKgc EIlX7ZxmG2xMhKyIVLyHC BmB9UjqAFbDRawT827ASz gEjC4CROaaqPf O8XhERKkgWqvUwL3z7P7V s7IIWkAZX75ZH93xYOsk1 M2vQU3R1ZrYPDfqnzozwq ljDM7RLIvMNBf kC63oWYhUMmuDf4fx3O9u 026CPCkMHYzxM93Nr4adN ldFJZuyHRIpA4seksjl2r vcjogIzAwMDAw HEp4SGx2HRRcbYctOeLfH BR3IvH0PSM6sOBduL6fqS jycohslH4iCsk+V3P5U1X kPjwvdHI+PC90 JRLwKP51iAVshFPmo1avw Kd9MeLrSQTkOWI8mJhuIK ozw1UnPEDrV14agYGlz3S 6IGNvbGxhcHNl WfXyaFH5aS4rTAnyzjvvn 5wglabkBmnat3wuhm19hW 34O91hMVlwIPLtRETzAMI zPPDzcMtcff5w jQ6aNn3+KETbpQD6tZZ4r R0dPcZuBjM1JMzhD357Va LisNYwBrgia2bbv5sssTh 9IjIwJSIgdmFs nHetYEK7d9LhLg60Q14oX HdpZHRoPSIyMCUiIHZhbG uerw0ptO4mOg2+ZB1og9f yfk50qF76eMG+ KZMnIAL7qZgmUNwjBADhj J4pOApgGtI7QBTdXjZyzD 78qAKwVQydYf5xwIqdpCy yAE9mBZWtfpbr b106SlAim3ifZNLitCNkI RcsYOM1Y84dq5S4HITwJA GyCOE9wGF7iP3azOyykwk gbGVmdDsgdmVy iLgiYKdcJXogQ667QWUzt QnkVrHbdDNkR2tcitASGM 1lOjwvdGQ+EJHyUMU7sSc vMOoyXBYjsJ5k NYBeI6g8UeNoOiN6VKqsF 2OzvyL5BIOvnZMqZIXtbJ TGeY3gqnuse5xifxpbWuA uUIRlIMs1JPx3 JNNucLdnBzAzCBN6YoR0C PQ7vSFhoR8xaOevwyslmA 9wOyc+RklOOjwvdGQ+PHR fDNY3yKvpARah GPXdxP1yVIRnA5e0HrDxX xU6ZOaqV5SfisS6PCPtpQ LaDWTuzNBChQ5tsawbj9a vcjogIzAwMDAw MFn3EMb9TRSxnRbuOxUiI WP0DmF8JQH8sRBkzN3wkJ yyqhlxlO5nZrz+TVJOOjw vdGQ+PHRkIHN0 jPocFImpODFhwS8mSUExF 5j2TwJyXkY7GMrbR0Fcke S9VZVciGBkYBYxcNSTdP7 ndmcee2ccnotg GqDqXWYnDPw6QUx8DISpy LjcDwBqNBH0RmZ3OLL0nV QydX9rmTegexavhY3jLcw +YRR6OHW9DG53 RD40M0WqIbfpiKFoqWB+P HRhYmxlIHdpZHRoPScxMD NwJiZukAjlHP7lFh7gDLX yLWNvbGxhcHNl OiB (more content not included)... [facility] Consent Formson 06-13-2024 Consent Forms [id number] [id number]#[facility] Wound Care Note [phone] [id number] 06-07-2024 Coding Summary HTMLBase 64 QtnzetppFWc8rVq+PGhlY WQ+IR6JHNWjK38ucDNtuJ 3qI0ZAADzSXignCWIKCTm BFqKhwsFoMW8cyNUyHRPr IC8+MT3jIKWuNoiqmXOoh 1W2uMO9E87smn2xCXyaxI N5HBAbSfHnfuotp5drvQb 6IDcuNmluOyBt RMGlfM68IHM0xT08Ue57e CFwrKOfw8xmuEx2IdSvXJ JnZJZ1hFxvONfug6FiCLJ cC83euMHej2S2 GMLitJdcePSkFjEmoGI9y L1dAVwsoukti6znwsfhGu l2zl76yOPae1C6dNC8R4Y duxR8FKHkjJAj TcuqmKKDzZ1jtpgia0quo qhiOyMkZHReRTm4ABb9IO CojXyoOyDrIW06MPL3JJN judHgQ3RoYYLq yQtsUeB0d1J3Lo4HX0TPL twgK9SYZJREUKcsuPF+PC 02ru98L8NfDseuBdd5QKH gXSY1cSW9kZ5s QYSwTSxzu4X1pCE8O2Iow iJlug0qg0dcTXYkZEexB9 4yjWMmf1H3KAYzzWY5UDL hhTowGvKrqH82 Oyc+DNYsaQgcr3JpJwbxw 0not2jetEg3OsvcNDRsnl PieEgmOOY5l3WaUt8gWDX nbNX5qFL3sW6l UlIaPxT7BIsbC889EjRxx LUgAksbA86tQ7ZvcLK+PH BbOwj8KWUnrWyzNH6eW5L hZGRpbmctbGVm uXynQT2aNQZzpbndODUpj G8hRJQaJ6o0UbEaVxU8HA knK5AnPHRdzqtqRc33uA6 cZmZbLcG6MOsk M3RuzvV2QRTchZEuVRxyM KW2C22kv4M7KEPnEVVcXO C4qIJ7nF6mnBnlkibtgGK mdDsgdmVydGlj ZKmhNBqtF953KYAesXmpZ kNvZGluZyBEYXRlOiAgMD kvMTkvMjAyNDwvdGQ+PHR hDMA0yPwlJMXb gNTdMRygBd6gjBwbyEdfO O6rGSJgowgqKCIodC4pPG PwiHOazMtsPH2kAIQvtuf mu056SrFbWIC9 FTXrxCTvT3DdzH6wWwQgW SJsSZJrB3HniAEpOXdgX5 35VYtlWrX5CNCmdhHrK3H sLWFsaWduOiB0 u9X7Jj4Kb7OcybjsV2Gda XTuHiGpWjenIDb8A9ZqFc wvdHI+JF49VLMmDH63JCr 9IOQ3oBdrELfg HYYqF2TpsM5pMqNcRCVlT GRkOyc+PHRhYmxlIHdpZH RoPScxMDAlJyBzdHlsZT0 sNn3eCHIgRPAu mZcdaJOnLqWfh2ioUPDwP PdiES7hoYatQ8OlpYU1LS Pwp1n4In40G52uX1XpfOW +HWFqhXH5kUI5 qA4nBbBrUeE0ECrjV752Q bLinFWwCuqzh8cva9kfjD j2JgQ3CCCdhaNlaMfyFUP 1y2QuIi78O82x IHdpZHRoPSIxNSUiIHZhb Khhoc2bmN1sCk7+PGNvbC O5xZU6bI8dCiLcRvS8LCh jP647PzDfsSPh Vbfzr3hay4hfhMf5DnUvH GIhybNcwYruHHD1b1EcJf 81M0AslDcmu1ZxAse2fb0 7tMHmc6F0nZD8 C5YmJJXgmkdjgPImwNyvK B8xTSSfwdtbCIUwuE2uBE IoL7j4KiYzTbL4YMruN3F qujX2HSWzsTDy UCVaxXLQnX2dzbwzb2nll cbrHxHcYJKoBXe8QPb5QH KgoEqjDcKgUPE1YqI9JWX 1rYLdtP9bvJug hvjnrA2eJuy+EUH0xVGbp DVWBZ6kDhltoMH+PHRkIH H2bPreTHazMYGvsT3hNIA wA7d2CiJsDrI6 PYeyY3RgypQ0ZVKeqEEbK ORrdKIGxA4rwshto9dslq pwVcIpNCRbROf0UCe4ICB saWduOiBsZWZ0 IkN7WEB7sTGwtY6fbAgln lmfxY2yGip+QmlydGggRG R7PZa0U6FfScd6KMPimEe nYT6uaBVjHKzm Rl1ruRwqtBriNV8nUCNxf azmy186KjRnv5igSMAmzS UcWNhsAXM5K53ld5P1TMX gJBScFCR1hCV3 rF0fzSizocsajFYglYufm aEtvDujSXczKQrzU031ZM NgtSmbBcTbVEi6G0VcNux 5WEZdpDqmTP9s xQIjFJkxEr8zyQpejPxyM Q2qZUOtedfpi538SwJrh3 jyXWNxgWLfRIniFOV7H57 aa6O0MYXlVBKe VZR7mMI5uN3rpAvyybjzq GVmdDsgdmVydGljYWwtYW suB192JTBaiMweJgSraGz 5J5SdFna3UZGq fTglBU5shFZqHQhiXk7my DrcfNuwEW4hDGKqlmkoe7 37IjNbv4deBMEgaLFgYNh dWYQ6E27hh2I7 HSFpRLFjZTG5pFR7dJ5yt GlnbjogbGVmdDsgdmVydG sfHUyzAVvjM256UCArzPz nPlBhdGllbnQg CDlzPSd9K2YuIjrjjYI+P Z90TZApXI51rQHcyNOwq8 yefIe5NiXyRPUnUJG8iXq hYRecf4BlKRVz Z74mpDLsd8G6IRUzpZada SCiVtNjfZX0zJ0rHIziyy ygx4gmsvpoXzitu7kqrd9 3hP55H96nIJio ZHRoPSIzMCUiIHZhbGlnb z7fyY3lWw8+EVPnwSV1hZ T2qG4fIHSsLbC2NXnuH34 9InRvcCIvPjxj v5ztx9bhpHn0IhO7VOYjd mJvaAxeTAY0w6JqOx75O8 9sIHdpZHRoPSIyMCUiIHZ ooMsptj6tkN7j Ii8+LTMwkSH4pSW1xR2eN eHvWeR7JKlyK631RrJizU FfJzolG02aA5TybCB+PHR qFpy2GZPpbDzc YJ3dtSUaKAxeNc4uPIS8T sPkSuGbHOhlJ7SkSIZmsa dkhikywPV5YVQvXMYnkM1 9Nj4oxFawZENk dHTRmS1tvufyu2doahzkZ hYmDZGiWMe3MHg0SHEfuM nfOtHnMJI7CvZ2KPF8xOD fgV8xaXwndqgy aV9nA3MdFMTnbhbqYq62l W0jTiDkYfJ5IZhxEhn+U0 ELGMICFygeFJEGG0hjYNa SBN30U0KrCse6 OLRanGsgZG4xtRJdVSvqU k4xdXcuiUcbCU4pSUNaoc lpSGOdbC9dPEMxhYFbrTm wUU6nDRKavwqy c316XcKzXPU9NYSltXXyX 5MdbN2rYzOaHXIzMZYoA0 WhtKCxMQdcE318TMuyAtQ 1TMGhriSlV2Hh TXPifLzwAkB8n8R9Vb1cC v7nCJ9qURH6SE02LK76vH Eah4V9vHR8A4VsJLPbykj rxiaciJE5FMJe WTZmoN12pBViIQzrUj7ly 0P9h454WIBwZPUzsT65Ix 0ykSzkFBDaoIAWdH4vapp ih9vsnpsgXeLv OMKhXTt3HVh9ZVTowLjqK bAmGGI6ZmV9GDW8oQEfiQ 1bsJoaulpqmN6cWnn+NTk cJRAypkN2B3Dy Gfd1LUTbaMdxFK1wkKLjJ UlqGi8xkAzxvWieQE6aWW SvzbtmBQXnmO2tTIEcwKC bzFdmOY8vEJQg kocuf700RkVvHFJ5XMUcz KXjS0FjmW7wUfIxEILmAF RaN3FhfJFjWDrbG268SJj rPiE4ASUydeJk F3RiSANurBmuNvZ1k0H1Z h9AJTrHJY98JW92mWXkl2 L0iWD1Z6BnAMIkwcfkgvd fdEX6XJUmFVWa aV73gFXoYOhbAt6sw4Y6j 481HCGiSVIjcU18Hj4zaE dqHWQvfMGHwW0ibhmet0x vcjogIzAwMDAw AFb3XCr4UIQmtKkcDnLpO BY7IgT7WPQ2qEKzaA3kqU udldtqeL8wWgi+L7G6S1X kPjwvdHI+PC90 IINfRU21qIIkfXCtn6jmd Fq0UnXsGDZrWDA4eDidRP txq4IeVLKaF19vzQTeq9D 6IGNvbGxhcHNl KeCksQB2fF5nOGtfqczth 9pfotuoDxdyo4cbqd01rB 66N05pDHaxGYWpCHAqKVP yWGVnqDbhbe5c jG8mDf6+ASYdwFY3vHY7b F4jXdIcRyM2FKspC783Mw KcdODnAypzd4rtd6yysXh 9IjIwJSIgdmFs mSobARU8e1YzXx67M56bP HdpZHRoPSIyMCUiIHZhbG pcfz7ycG5nSq0+AG6xp6a bhm37lS85aBV+ CTZeKDY9kYsiQHnfAHTsl K7vEYcsFbO1EBZtTwLmfQ 96sOVrHKtcXt6iiJewmYu oLE8cKFUyzyuu r674HsJda8cgVJSnaVQlZ GxvALV0R89pt9R2LPOsLL WeDZB6oTF3wM4wvQmiozh gbGVmdDsgdmVy nPqmTYnvIZitF253VORpj PulDeJsiVEcQ9wlvyEKCB 1lOjwvdGQ+GZDgADV4lJs bKGinLDGpxC8u JRTvA0o4JuZuGfD4BTntJ 2UkekJ8SACzgGRxXXMwvU AUaG3qrhzjl8mowrkkVpU nGALoJBq2OUj7 ECMluMsdKoAkUOV3BfY1I WZ0rCVqjR3axXpzvjeevT 9wOyc+RklOOjwvdGQ+PHR gNRU1eMoxBVrn TBKpwX1dJHCiC8y2FeVyX yK1QSntZ6GwgiN4YKBsoE XhFDGiaWOWeK6hcnxaw2m vcjogIzAwMDAw IAm2VEt0HZFfsCfsJsFrQ JR5MlC1EGF5uWFhlW2msF ymeadlyZ3dSwm+TVJOOjw vdGQ+PHRkIHN0 wCdsNRmjFSXfkU8hARNeG 1f1VqHhYaH8THpfF9Ghdt R7DAInxBVaHSRsnJINoR1 gyoyuv3wwfdoy FyVkKOIqRWh5WPb8JBVdd XhzXjDxKMW9RcC1ACD1cV SbrX1piPrfzmictF0fPsc +GVV7FYI1GY73 DC06N7LfBswnsKYfdPO+P HRhYmxlIHdpZHRoPScxMD WoHsRyaIlfCQ0dIm6uKYN yLWNvbGxhcHNl OiB (more content not included)... Normal [facility] Office/Clinic Noteon 024 Office/Clinic Note Patient: [...] 139.210 kg Body Mass Index 40.67 kg/m2 [place] Body Weight Calculated 79.52 kg BSA Measured [...] was normal.. Impression and Plan Diagnosis Diabetes ([id number] E11.9). Plan: Discussed with patient we need to get him back on Ozempic to try to get his blood sugars down. Also that he needs a follow-up better diet. Prescription for Ozempic 0.25 mg weekly was written. I did discuss with him possibility of also going on insulin therapy. He wants to hold off at this time.. Orders Orders Evaluation and Management: [id number] Office visit - established pt, Level 3 (Order): 06/07/2024 10:19 EDT, Qty: 1, Diabetes - Neck strain. Diagnosis Neck strain ([id number] S16.1XXA). Course: Will try different muscle relaxant using baclofen. Also a steroid burst. I did discuss with him the steroid burst over the next 5 days May exacerbate his blood sugars.. [Electronically Signed on: 06/07/2024 11:36 EDT] Balwinder Miller MD [Verified on: 06/07/2024 11:36 EDT] Balwinder Miller MD [facility] Coding Summaryon 06-05-2024 Coding Summary HTMLBase 64 FiicvaboINv8rVv+PGhlY WQ+BU1OYNRwP68zkQFreO 0zU7ASYDgIUzvcRZMOOLx RIrKjtsHwNF9yxXOxXEOu IC8+MR8oNMXiZogisDUtr 3H2nTU4D73lax3sILyfzB C4SZZcHaYnwalmn3yjzYg 6IDcuNmluOyBt RTPacT00ONY5eL60Jc03p UBzuNJoh6stjRy5HzYvTT DgWRG8aPedIWtoq9WfAEF fW50ozROtc5G2 ZRXaoWbnbUBtAaLevCD2d C9kSNabvrfdv3itkeaeZw d0nj99pPNhg6H9wOA8B8L lpdD0RZTqtGDa WhnhhHVRvY6ygygkw0xuo faqWsWbPXRqRPk6FQv1HU FrgPgsHyYbBG19RAX5VMC xitNiV9UhHHLg jLglXpA1j2N7Ca8GA3YHN lteH6ZOEDLNURiprTA+PC 06qs60Z9DsPuehAti9YDY fDLZ4oIS7vE5o PSWdLLeyd1V7lYG6G5Eba sCkoa4kd1kuYDFjWLejH4 8qoAZxl1L0IESixWD9TZC yqUhlHgVjpA15 Oyc+NBHwqPypo1PgWjoan 2was1hzeJj1VfnvRDEbmw NfnEafTUD0n2VxKn2eJUI iaMP5mGE1lN6q SpAfDtI1RWsxQ053AbUof DYlLhtpQ79sQ0YfqYL+PH WuUjk8KRRbiRziGV1cC7O hZGRpbmctbGVm dOvaAS5dWYMgagdzKJDgq O9aTTNnD3n9HlUmZbA5JU vhP3KmVROoybepYz43iB7 mUeWrFvZ2LQwu R3JkwfH7MHBlnFUjJTweA AI6N80ok4V8VKKkEXFuGR K0fCC6aM2tzTrfudtylCN mdDsgdmVydGlj ACjwOCknP608PUCwdDxpU kNvZGluZyBEYXRlOiAgMD kvMTcvMjAyNDwvdGQ+PHR bLEP6hEvgXGOq hPLpXMobMf6tqNxcxVugE W2vBWUaeqelMERhcU4hZU PbjBGdqWchZQ2qZBJbslm vk537NtOlCMG7 HQDrdCChV5IvzO6kOhXxT TQoZHGmV4BdaUUiVOjhW0 82TPrpLyF7DDUhqsNtE8E sLWFsaWduOiB0 a5B4Te6Iv5NiugjnU6Myy DOyRmUiIkrsWYq2Y7FmGc wvdHI+VL55SFJpYT31EBk 9RKW6eKgdKZxs AJFcJ0FixX2dLaDhZWBxU GRkOyc+PHRhYmxlIHdpZH RoPScxMDAlJyBzdHlsZT0 hFv4rFCDyAJUs oJyxyBYpVcRht6kwYUKqM LyrVH7czDxeZ9BdyVB9AK Opk7t1Gd89O25cJ1AepBI +PPKquLX3cSV0 hE0xWbUvOrN1CDybQ463G fWglXXdUlpzj0zzt1hauO q7KzL8CFBuxoDvbFksZMW 2i9HuJn34Z79b IHdpZHRoPSIxNSUiIHZhb Ciqbk6gnO0aGb6+PGNvbC A3qFH3qQ8kMgMnDkF1BHc vR354TjSqrKDu Jnpwu4ysk9ikePz5TlCnE CHongQppJolFAU7f2PdUy 58I0ZfcQrzu7OmKtg7wq8 7fIVqh0B1vXN0 H3KrYLVpiuwzrXJaaHflG T2lTWThhogmJJBknQ6rHE DiQ0i2WvJpAlJ6BGidV8Y rvsO4UPBpwRKm AKBgfPZKqL6bsavxm2les yqhFmMpSCFkCFt9XGz3SA GenGguCsZkPEF3NpQ8OPR 7oUNqyD7tfHtw asqfsD4oLow+VHM0mREtj GDXSK7sWwxktOG+PHRkIH E0rBzuMZsaLHIebH9yNLP hM2e0YrAyAzI4 JGemG3UpvqS5CUHwbGTbC VOflDEYvB8dbrgvb8sdfx xyJrNqZEMuLYu4NAn1YZR saWduOiBsZWZ0 YwR8TXU3bSEyzZ4ncEsxk ydaqV7mRuo+QmlydGggRG G5QTh4C2WqHdu5TPGfvWo cJI8qhUQgLLwt Wv9lqIigoPdkYP5hFJUqo suyj138AuRcy1eeZZCstP ZxGYqkDFA1I02it1E0YEF xCTKqPMQ5sUC7 nV7xuWlcobibaCAuiIlrb mOnfEvxLCsdVEeiF798TW YpvLtvZvUkYKz2B7SiEdy 2OZDypKhkWG2q jOXrTBefSl9myDgfzEtuS V7aUPQecvstb309RjHrr1 adUKVjtEKkZYxpACR7L38 km4P6IASgVWXu BNB8ySD2mT5xlGzjmtzsi GVmdDsgdmVydGljYWwtYW cuB194MGHziQgyKzMwqXu 4Z2CuPnz0ZSGe oGihCU5dkDEoBZbpPd8hi ZdudMmgEL3aFPRygwqdd5 55AiJgb7xiPECjeUGeMDv wCCT5V71np6O1 HRZxNDOtWFQ3qLY7zV7nk GlnbjogbGVmdDsgdmVydG qiGOucPGoeK832SNIfnTk nPlBhdGllbnQg PQpvSUl8A0GgDhkolML+P D23NKVuCP94fVEfmRBbl6 mthFd9PfGnVLOkHPQ6jCz rGHkeb3XqAOMm E64dkQXlp6P0RFAnxJfmg QBoMhFbnSO2yK1wGZzzfv gkt9rtmpdcHjywv3xynl7 2uK86K48gOJoa ZHRoPSIzMCUiIHZhbGlnb v4oaJ6dHg1+XEWtoSN1vV T9zI8qJLSjUcT7XMbvW25 9InRvcCIvPjxj q2tbp6fbxLs7EgB5XOUtr vWaqBczNWG2g1QrRf96O3 9sIHdpZHRoPSIyMCUiIHZ vkCgzvm4mgO2v Ii8+WYCmhHI6gNH6tW4hU kXjEsQ0UGpmF466GzIgmV BjOwbjV08nV4VzvLM+PHR dNyt8KLUhdCup XA1kaJBtSZbhFh8eGVZ7T yCwDnYsZNubC3VgLMKivy bovcmqvON1SFGoCMDjsG7 9Ro8mqBrnYKNd eSRQnL9dqdybq8zgvefoF pYeYXCuNKd0BKd8QYZodO woBiQaNZH1DmR0ADT8gZK emY4jzEjljlmc fB4mV4DjMNZrbuyhEt54t B8xLsGlPiK3CBrlGrf+U0 NGAYCPKynkDZMUR4cdOIz CLS55G4NvVet3 IIIjqIfbXT1arPNfAVpjD p1teIoqrItwMH2fSGRjjf wqSIGgoG3mFLNeqBXzgYb uVW1qTGHwflox e060UwZrHQW0XDJnaIItA 8XtoG8hEqTwTUZxIRTmG8 ZwoUFyPKrxV893VTweEjD 9VJSkbyIvM9Tp TSBwrBafJnW9i9Y0Ci2yW i6hIJ6oYZJ7GK07NE01sR Ift6Y4iPM5Z7YwWAGufte phogjcLG1LPGy GKFkqG41mSEkSJwjJx0pz 6G9y753EAOwIGQyaV47Of 1ljWqxSAYzwARBkI3siju rj0jzdfdxKxPj CAKmFUp3ETk5SRYiiRsnV nNkTLP4PaP9DBN7aEXlvQ 1mnKrvsvhkvU0kVsq+NTk sJUUyopM0H2Eh Zix8GXEhjLbkLM5niBLlB NlqVx2ltOyceLyxZG3pAM LxnxhmMVHazY5vYVHcaZU hpNtoUG7xMXAj iyklz794XjUjWWD3UAStc WFzB8FnxC4sMvOfBVEyIF IsR6IskFQkBMwfI110KTf iLiM6DJOspmIr L6NqGNNcfMfzYnT4g4H1R y9ZMOsMPY50TL80qIWte4 F6uCT0S5ZxAVXsvonbsuh ydKB9VSOqYAWp aJ90zGJvZJmiKj7ho8J1j 446GKYrADQxpD23Sg3neZ kuJESmsDILxK7ywqxmu6f vcjogIzAwMDAw YMf8MNt1LIWouTzoHsOrA RW5NbU2LGP5iUIqtS0pqB mjhbcbpW4aMoi+W7M3Q3E kPjwvdHI+PC90 QJTjXR83jBWqnORvp5ajf Sj3MtIeJMMuNOM3lQluXU otv8KbETDuV83uzOBpf4N 6IGNvbGxhcHNl ApHygFS4oD8tOWukcyjsy 7oqwgsaChkdx6wohp82jM 31S58wVQplIZRjMUKlRYF zJPDguJrcqx7x zD4uWh6+EAXloHO8qRS7l O9pKpUuRvS0ZYirR024Wb NgrQUxFgziq8rad1qksFo 9IjIwJSIgdmFs dFfkJUN1k5LySi26W34vQ HdpZHRoPSIyMCUiIHZhbG wykp4sqY8rPf5+KZ4ca7x fpu53jO50sXU+ FYBcXUA8zYboYGbrRHBxe A0xBSihEeC1JQAhZbMagT 63kSZlWYfdAm9hgVybvYn rRK2xQSHfzise z141ZgPaj5sjGVGkeOXkE DvpGFL1V67yz7R6BZZiSF ArWNG7mPC3gF5joIsvumr gbGVmdDsgdmVy bTxlEPbqRUktW755QVLhd FpjLqPwgIHuG3gcktGLUD 1lOjwvdGQ+CGOpPBE5pHh fKXupFCZpiK7v DPSeM9a8YdMtVmF4CXihU 4SnpzJ0NYXksCXhPYCnaL AUuT7fubtix0jmuloaZgH aWHGyPWy6CXy3 VVIwnQktOtYhHKJ3WzJ4N WL4hLKuvY5pjQruymrnxM 9wOyc+RklOOjwvdGQ+PHR gOOM2hMpbHEly WCTnkZ3bRSGhU3x5HkOsG mV2QKfqX9MqxtM7NHNgnJ VzTESrfAQQtT2oxasem0v vcjogIzAwMDAw FCg1YHt0XIIegXkzUxNbA TX6PhJ4KBU1pJCinS9xdL xcridgaD5rMtm+TVJOOjw vdGQ+PHRkIHN0 yTfnAUrxQNSlpT9kZLBsW 0n5BeJaNtA0MPysB0Xheq O2FMMvqESdGNFozWJUwY5 eafdcy3jswvue RcZgXXQgOWe2UMk8XEMdq GlmRhNhPMF6XpG7AYU3cX DgcD1ywZlmewahgK6fYmm +HUF1NWV9LA48 GU04M6NpKaxytUJeeKN+P HRhYmxlIHdpZHRoPScxMD TbPpXhzVssHZ0tTp8xKLT yLWNvbGxhcHNl OiB (more content not included)... [facility] Noteon 06-04-2024 Wound Care Note [id number]#1. 00OTGTIFF [facility] Coding Summaryon 05-22-2024 Coding Summary HTMLBase 64 RwtemyszSLz0bFy+PGhlY WQ+JN4XXTLrK88vhDUjhN 8eV7FMIBdFMqooRRJKMAy MMiJfmzTrTR7atQQjKODr IC8+UY8oVCYtVypxwEShq 1U2pJA6W07fuk3aOGqojE L1EJHgIvDghzqnd9tteXz 6IDcuNmluOyBt PPBvbY45ERT5gF89Ex51c KUzvDVoq0oovHn5YyCgDG VgDIH5hKsgBUgsk5ViIBE nA27hbOPek0K3 TAHmuRyhzXBhUhZtzFM5s G2lZVdsdwedq4gzvmtxXd j9pi15wXKuo8N3jOF3C8C vrrX8QQEzdKWd TgfwhOKNaC1oshbxx5mpd lonFqTnOQHvPVo3ZCo8EV MdcYcgTsZqDE46NFF9NDB vajGrX1KxEBKl xRfyWdR6d2B8Ih8AB0VXB rjnQ6TTGUWBBLxadDW+PC 19eh22X6OuGxwgUzf0AGV rQUH9iVO9dR0q DXFzLSboj0J3xLM8G8Aqo yQabm7bx0woWXMjARmoY4 5qqLGmc5B0YQUksWZ2HBI gqNlqNwCovV34 Oyc+ZDVefLzku1GyBfetd 6aye0temNq8EhyzRERlva NftNveFTT1p3ZmGf6pHIZ pnWR0pKY9gS4q YyCbLfB4NLbhD351GqSyd VQkCtbfQ30iM7OaxCN+PH JiLcz1RNZrlHyeRI8wD5Y hZGRpbmctbGVm mGiaGX6oMDKokdbbLKTjd R6oACOvT1j0VkWjKrG6IC doS7LqGIXulyrkPs51nR8 tNpQqLeO0FMqw N7RbvrA6VKRfjAEbPKgoX CR2Z53kg8T5BYYkVZNhJX A5uSN4cU2zsGmitabkmBJ mdDsgdmVydGlj LQqxUOjhX000IODueMguN kNvZGluZyBEYXRlOiAgMD kvMDMvMjAyNDwvdGQ+PHR hORR3pJzpRCYs jHHoVZotKt1vuGnrqJyrE R9xIPUjoxfnYUIpxH8fJH RrnUAfjVgrJW2xUZJihbn jw467EdOnXKU4 OISapMTfN9HokC1sUtFmX PRuAZZlG8VlkMZsAIpqE9 54FLodEqU8PBAtgfHvX2K sLWFsaWduOiB0 w7G4Ns8Sw2PqdgybT3Ucw XYrCeHlKozgZJm1E8LoUv wvdHI+HT98NRWuEF89ZVp 8UEI8jDjhHHel ZAYlK1XpwV2yXaIwZCLxT GRkOyc+PHRhYmxlIHdpZH RoPScxMDAlJyBzdHlsZT0 dFc9aBWLpDFWo nZmxgQUuPiYag4vdJJSiE FydPX2kdGepF3HqrGV5IG Utn8y3Bk74A60oS1OyzWP +GVNffBO0vKN3 cC5dXnJzHvD9TSisY169G yKyrYLhNupjh6wot0zwuI m1OxF4QQVfbvPyxBriVWV 9c9AsYu22S54i IHdpZHRoPSIxNSUiIHZhb Giqzw1rmW2sHi1+PGNvbC H8pHC1gJ0zIvTkPgU6SDb tO022LpTubPMn Nokso0sxu7qivGq7FlYbV ZOxstXwpFhiSAG1a1UuEg 21M4UsgWxky0UxDmv5td5 5uJCde6O4zBK0 N1HkKZWhrtziyQJtyMnmZ I7qSFCjqxzdAGYtkH0vGP KcQ1p5MrKpYeD4ASepV6Q xwcK8ADZfqIHj WHNgqOSBmL3sxzgjm0nat cvhRsAlRQTsABp8RRg0SH QapLeuJbFpSHL4AdD0HCR 1wLNdyF5knGpp dnltzF4uWcv+TAF9pZPrz LGQEB7bFvnnrQF+PHRkIH E3hTjgCRgmAVTwrF0fNRD iS2g2CbIjBkJ2 CGskB4ZwuiH6RWQejWUgC QZgmENDwR6uodvhk6tkff zwCwOeAINbEFx2DEa2QFI saWduOiBsZWZ0 UlK9WIR1rDZguH8yoHfxq awyjP2bPwe+QmlydGggRG B3UZr1Y8MrExe6UUVikDi eSZ4ajLOfMJti Of0fwYozrQjwTX8mYLCnq xjxm030YiRan9roISVkuU UyHKrwAPF7I25cp6Y1TOP iJTCySBL4pUT8 eY0rvTxidguidKKioXsbe fCiwZgzMLjtCDmvJ944RT XgeMcyEbJdQVz6S8DgKgz 7UKQdtKdcAP2m sMSsFZhmUc3xzJbshXzuP V0pELJtdjnlk218JiOhh8 dnEYZqaFYbOFqaBZO2E30 wh4L6ANOyRPPm AUC7gPY8cO6lhKrnngitn GVmdDsgdmVydGljYWwtYW xzF326FRYnnUdlOoUegJm 1Q7AsDoo0OAQp wRcaVA1jkJViHEcuNo6qz CgnvZuzBT9gKBPlqlfzw7 37FeFui1xnBVSgtKVhQHk kXQO3N59co7I0 AJCgGNCdFRF9lIJ0oC4bn GlnbjogbGVmdDsgdmVydG rdSThlCQovM912QTUaySm nPlBhdGllbnQg VMmnRPs2N1JnIfbhaES+P S77BUBbDO88eUBdzUMkb3 iduOf3LnJgHCMhKNN2pJf zPRnsr5IvRRWi U48quMBqd3A7EZNqqSoxw EUgMcOlmPJ4wB9wNUrrwx lcr8anwhmkXfdpt8vyza2 9pY73H54hVIdd ZHRoPSIzMCUiIHZhbGlnb h2twN0fFn8+XQRteXN0lJ X9lY6rFQLzMzQ3PKpaT36 9InRvcCIvPjxj d5rfe1gjoOx5UnK1DDKkj bLgePucAYD1f8QbPw43V2 9sIHdpZHRoPSIyMCUiIHZ ylNnhxo4wsW5x Ii8+VKSkbOD2eBB0oJ4nK tUvOhB2MIwzO169StVuvM WxXiecT66qE3KypAG+PHR jTpg6FJGlzThk IK8vmDQqUMgaNl6cAQX8X pWkWhQmGQdjD2OaSPNvhn bmtuwhjOU3LAIqKWOnpU8 0Jv1pxHifKOVw lXKVdU3zpiktv8fxqeebO vZlZWMsDDy5AUw3AAWepQ puUuQbCTA3ZnZ0DKN8dLS ftF9poQbmflkq pE3mM5HfDDPkrbtuCm54z V0mFyPdWxH4CNpxMdt+U0 YLJESVHjadLHYNP1lwDAg WIX81P7QnVih1 AILmuEheHU1rnBYfEEcfY i0pnLwjyJnjRE4bUVPbkp mvYPBeaL2fQIGlzXAnnVo vKC9nBFJfeqnr n324PhYhWXD4TUUstQDcA 4YdzS2pLvXsSIIoFIHiP8 EcpZMuSHeuY306NGuxNeB 8GIEcsmHrK5Kb MKGotAcuByG5e2X9Jr7aH u1qFX2hDDS7ZS43RV91yB Ant7Q6nIC7E2OjBGKcnbg uwqkuhHG8FNHq NYZpxN01dJHvGQeiXf2ye 6K4u853QMRjAIUqwI07Te 3fhOpsGRAnoQZDqW7lbum lh6ldlhqbRjIm EUGmEIz5HQu3GJPkgLprI wIhWYB2YsE9FIF6yNEobM 2qiElisirvjA0bTsq+NTk sWUSkimQ6B5Vr Szs7RBDmfUftQE6zhUVbL TvxXs1ijNbwnNplUG3pQG UtwpjnHYBekO7rSXOfpHN uoUolWD0nVDFm chktw055LpKvVVK8FLHne NUoB5JfcJ5rDdHjBNNlOS MgA3FnzJPrKSrxF204JSk wAeQ4VKAszpYz M0SsKYSgqUudKeF8k2X1Z g0KGCuEEW20HF89tBYkn4 N5vHT5L6CmAUGkobjnhqw zkQC1CRGsXUTs qR93mQLzTDeoDi5ei2C0e 124QVMpJEJmnS56Lq1mjQ mcBTYlzYDHnA0jqvang1n vcjogIzAwMDAw OSy8UWu8YBAvxDchCcKbV TU7DtH9RGO0sUEggE6ptI vtlnxibR5hZal+G5S2C9V kPjwvdHI+PC90 PUPhSZ34bUYvsAFuk1qcv Vn7CnKwFQWwKQG3aZggUZ iih3QuCUQjV20btJYgf7V 6IGNvbGxhcHNl KsQazTS3wZ3uFNqsndszj 0bcmzomKgyuk9jhzh70dO 16Y72jXLtjKKJcHZZnOCQ kVNLjhMzgvu3q mB6bFx7+QGWogWM3nKV7e E6tGpAwLfA0FIglC394Ql DdcWDeTahya0pfx7fxbZa 9IjIwJSIgdmFs kKjnBNH6w6KuJz48D90zM HdpZHRoPSIyMCUiIHZhbG gxzx1fsD1rSr8+WV4gv0p ire01gT34nLK+ QLJeDQO5gRsdVSxkJTSrq Q4dYGjsWuK9XCMaFuOjeH 36hXWuDUnaXw7maZijmAz nPR0lHPSfydbt r504AvTtf0quHLWasWEfD ApsNFD6Z03rq5W5QWZnHH SzBWQ7cIX0qW3usPhjnhm gbGVmdDsgdmVy fCwhENdfZCkqB180YPOlj IzyTpOijCNyD0znvwCKYJ 1lOjwvdGQ+IXWtJPS7uSi iXFsdOWXmfU3a QMFtW7g4RsYdJsP6ABpzS 6UhxhM1PCYhfRNeHYAusV EExL4xhpeta2vxqweeMsA aMRUvSKx2HOh6 OFNejCeoMjLvEVB4RvX2M FW7cRPcjO0igHroyfbteB 9wOyc+RklOOjwvdGQ+PHR sRMK9vHtaFRnu BPSgeU9tECZfP2y8SaIeB rM2VBwnU5UlwiN0MZSokP WqMFGtrDLGyX3swkxyb6x vcjogIzAwMDAw ANr3TBw8PSPsvOfgSsYcH QJ9NxN5SRM0zWOqhX9heB lllcgprT2iZnl+TVJOOjw vdGQ+PHRkIHN0 vFdsMDzoJDLkpM5oUDCkB 3a6ZhAvRiB0DJowE1Giem N5CAQgrYYaSYUrkAVTzB1 dribfq2uxfpoc QrBaGMKzRBp8XRf9HZIxr SyzUfKjUHY3MoQ9GST2gY NccL6hnMmmsfnvnK8fOhr +KXW4GKQ8MM88 RB51I3TbPbqyeTYgyBE+P HRhYmxlIHdpZHRoPScxMD LhVlPktUgaWP2hSv0pBUN yLWNvbGxhcHNl OiB (more content not included)... [facility] Noteon 05-22-2024 Wound Care Note [id number]#1. 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 Can you please review and revise however you deem appropriate? Thanks. [Electronically Signed on: 06/25/2024 11:34 EDT] Kimberly Jones MD [Verified on: 06/25/2024 11:34 EDT] Kimberly Jones MD [Transcribed on: 05/17/2024 11:25 EDT] [facility] .Auto Diff 105-11-2024 Auto [place] % 8 % Normal 09-30 [facility] Comment on above: Performed By: #### 2 [id number], [id number], [id number] ####[facility] (DEFAULT)[address] [place] [address] Baso Abs# 0.1 x10 Normal 0.0-0.2 [facility] Comment on above: Performed By: #### 2 [id number], [id number], [id number], [id number] ####[facility] (DEFAULT)[address] [place] [address] Basophils/100 WBC (Bld) 1.3 % Normal 0.2-2.0 [facility] Comment on above: Performed By: #### 2 [id number], [id number], [id number] ####[facility] (DEFAULT)[address] [place] [address] Eos Abs# 0.2 x10 Normal 0.0-0.4 [facility] Comment on above: Performed By: #### 2 [id number], [id number], [id number], [id number] ####[facility] (DEFAULT)[address] [place] [address] Eosinophils/100 WBC (Bld) 4.3 % High 0.9-4.0 [facility] Comment on above: Performed By: #### 2 [id number], [id number], [id number], [id number], [id number] ####[facility] (DEFAULT)[address] [place] [address] Lymph Abs# 1.3 x10 Normal 1.3-2.9 [facility] Comment on above: Performed By: #### 2 [id number], [id number], [id number], [id number] ####[facility] (DEFAULT)[address] [place] [address] Lymphocytes/100 WBC (Bld) 24 % Normal 14-48 [facility] Comment on above: Performed By: #### 2 [id number], 7635990, 4405132, 95522643, 4756830, [id number] ####[facility] (DEFAULT)[address] [place] [address] [place] Abs# 0.4 x10 Normal 0.0-0.8 [facility] Comment on above: Performed By: #### 2 [id number], 7808809, 8171891, 26769420, 7803945, [id number] ####[facility] (DEFAULT)[address] [place] [address] Neut Abs# 3.4 x10 Normal 1.5-9.2 [facility] Comment on above: Performed By: #### 2 [id number], 9637902, 7701564, 12971982, 5426048, [id number] ####[facility] (DEFAULT)[address] [place] [address] Neutrophils/100 WBC (Bld) 62 % Normal 44-88 [facility] Comment on above: Performed By: #### 2 [id number], 9346579, 6427130, 69457705, 3754044, [id number] ####[facility] (DEFAULT)[address] [place] [address] Standardon 05-11-2024 Breakpoint Chem Normal [facility] Comment on above: Performed By: #### 2 [id number], 3041410, 6186932, 17045528, 8784222, [id number] ####[facility] (DEFAULT)[address] [place] [address] eGFR Non AA 36 mL/min/1.73m2 Invalid Interpretation Code [facility] Comment on above: Performed By: #### 2 [id number], 2658707, 8908435, 14455439, 5525490, [id number] ####[facility] (DEFAULT)[address] [place] [address] eGFR AA 43 mL/min/1.73m2 Invalid Interpretation Code [facility] Comment on above: Performed By: #### 2 [id number], 1109904, 2982090, 26263455, 7836410, [id number] ####[facility] (DEFAULT)[address] [place] [address] Anion gap [Moles/Vol] 11.4 mmol/L Normal 5.0-19.0 [facility] Comment on above: Performed By: #### 2 [id number], 6006394, 5083617, 43727621, 2102151, [id number] ####[facility] (DEFAULT)[address] [place] [address] Calcium [Mass/Vol] 8.4 mg/dL Low 8.9-10.3 [facility] Comment on above: Performed By: #### 2 [id number], 9966776, 6675286, 86916478, 4156013, [id number] ####[facility] (DEFAULT)[address] [place] [address] Chloride [Moles/Vol] 101 mmol/L Normal 101-111 [facility] Comment on above: Performed By: #### 2 [id number], 1058204, 0539153, 69398927, 4112904, [id number] ####[facility] (DEFAULT)[address] [place] [address] CO2 [Moles/Vol] 26 mmol/L Normal 21-32 [facility] Comment on above: Performed By: #### 2 [id number], 8394985, 4813379, 31004074, 3192860, [id number] ####[facility] (DEFAULT)[address] [place] [address] Creatinine [Mass/Vol] 1.93 mg/dL High 0.90-1.30 [facility] Comment on above: Performed By: #### 2 [id number], 2809394, 2538872, 23581577, 9446682, 1307471369 ####[facility] (DEFAULT)[address] [place] [address] Glucose [Mass/Vol] 337.0 mg/dL High 74.0-118.0 [facility] Comment on above: Performed By: #### 2 [id number], 8445913, 6095361, 71739097, 0324997, [id number] ####[facility] (DEFAULT)[address] [place] [address] Osmolality 291 mOsm/L Invalid Interpretation Code [facility] Comment on above: Performed By: #### 2 [id number], 2734475, 1372701, 99083980, 7038358, [id number] ####[facility] (DEFAULT)[address] [place] [address] 13617 Potassium [Moles/Vol] 4.4 mmol/L Normal 3.6-5.1 [facility] Comment on above: Performed By: #### 2 [id number], 0645488, 7948443, 68696158, 4508023, [id number] ####[facility] (DEFAULT)[address] [place] [address] 42538 Sodium [Moles/Vol] 134.0 mmol/L Low 136.0-144.0 [facility] Comment on above: Performed By: #### 2 [id number], 8073377, 3713444, 95914607, 5652876, [id number] ####[facility] (DEFAULT)[address] [place] [address] 14491 Urea nitrogen [Mass/Vol] 40 mg/dL High 8-26 [facility] Comment on above: Performed By: #### 2 [id number], 8278178, 3418903, 74544293, 6889644, 1159883462 ####[facility] (DEFAULT)[address] [place] [address] 85519 Urea nitrogen/Creatinine [Mass ratio] 20.7 mg/mg High 4.6-16.2 [facility] Comment on above: Performed By: #### 2 [id number], 2918531, 8825977, 80099632, 9776847, [id number] ####[facility] (DEFAULT)[address] [place] [address] 14145 CBC w/ Auto Diffon 4 Erythrocyte distribution width (RBC) [Ratio] 14.0 % Normal 11.5-15.0 [facility] Comment on above: Performed By: #### 2 [id number], 1705049, 2153876, 77182544, 9695662, 6928613167 ####[facility] (DEFAULT)[address] [place] [address] 96715 Hematocrit (Bld) [Volume fraction] 43.5 % Normal 34.8-51.9 [facility] Comment on above: Performed By: #### 2 [id number], 1140005, 5543159, 99200836, 2556387, 8446297565 ####[facility] (DEFAULT)[address] [place] [address] 07146 Hemoglobin (Bld) [Mass/Vol] 14.3 g/dL Normal 11.8-17.7 [facility] Comment on above: Performed By: #### 2 228704748, 0567937, 7329796, 36509631, 7676876, [id number] ####[facility] (DEFAULT)[address] [place] [address] 09683 MCH (RBC) [Entitic mass] 30 pg Normal 24-34 [facility] Comment on above: Performed By: #### 2 [id number], 1196562, 7174973, 85854930, 3717357, 5049573587 ####[facility] (DEFAULT)[address] [place] [address] 91385 MCHC (RBC) [Mass/Vol] 33 g/dL Normal 26-37 [facility] Comment on above: Performed By: #### 2 [id number], 1703504, 2542483, 28754220, 1369057, [id number] ####[facility] (DEFAULT)[address] [place] [address] 60590 MCV (RBC) [Entitic vol] 93 fL Normal 81-100 [facility] Comment on above: Performed By: #### 2 [id number], 5956508, 8710152, 78662853, 5075966, 3731642360 ####[facility] (DEFAULT)[address] [place] [address] 08604 Platelet 185 x10 Normal 138-427 [facility] Comment on above: Performed By: #### 2 [id number], 0186884, 0644147, 09659038, 6202706, 7301014977 ####[facility] (DEFAULT)[address] [place] [address] 04979 Platelet mean volume (Bld) [Entitic vol] 7.9 fL Normal 6.3-10.2 [facility] Comment on above: Performed By: #### 2 [id number], 7458252, 0266481, 51190670, 2439869, [id number] ####[facility] (DEFAULT)[address] [place] [address] RBC 4.70 x10 Normal 3.70-5.30 [facility] Comment on above: Performed By: #### 2 582689284, 8399906, 6254783, 77157206, 7443684, 3744223698 ####[facility] (DEFAULT)[address] [place] [address] WBC 5.4 x10 Normal 3.5-10.5 [facility] Comment on above: Performed By: #### 2 058350694, 1407223, 0938417, 81904129, 1576829, [id number] ####[facility] (DEFAULT)[address] [place] [address] 63496 Man Diff? Auto Invalid Interpretation Code [facility] Comment on above: Performed By: #### 2 [id number], 0494441, 9407665, 52263503, 1673188, 2603371604 ####[facility] (DEFAULT)[address] [place] [address] 69030 CRPon 05-11-2024 CRP 1.6 mg/dL High <=0.5 [facility] Comment on above: Performed By: #### 2 [id number], 1838848, 1919678, 93651547, 1404736, [id number] ####[facility] (DEFAULT)[address] [place] [address] 20486 ED Clinical Summaryon 2023 ED Clinical Summary [facility] - Emergency Department [address] [place] [address] ED Clinical Summary PERSON INFORMATION Name: SILVIO CROWELL Age: 58 Years Sex: MALE : 1965 MRN: Acct#: Visit Reason: Wound infection; WOUND CARE Arrival: 05/11/2024 14:45:07 Discharge: 05/11/2024 18:02:00 LOS: 000 03:17 Check In: 05/11/2024 14:45:07 Checkout:05/11/2024 18:02:00 Address: [address] [place] [address] PCP: Balwinder Miller MD PROVIDER INFORMATION Provider Role Assigned Unassigned Kimberly Jones MD ED Provider 05/11/2024 14:47:09 Roberto December COMMUNITY MARKETING COORDINATOR Nurse 05/11/2024 15:07:27 VITALS INFORMATION Vital Sign [...] Follow-Up: With: Address: When: Balwinder Miller MD [address] [place] [address] Within 3 to 5 days DIAGNOSIS: 1:Chronic venous stasis; 2:Diabetic coma Patient Understands: Yes - Patient/family/caregi shalini verbalizes understanding of instructions given Comment: Normal [facility] ED Clinical Summary [facility] ? Urgent Care [address] [place] [address] Clinical Summary PERSON INFORMATION Name: SILVIO CROWELL Age: 58 Years Sex: MALE : 1965 MRN: Acct#: Visit Reason: Skin problem; WOUND EVAL Arrival: 05/11/2024 14:13:36 Discharge: 05/11/2024 14:40:00 LOS: 000 00:27 Check In: 05/11/2024 14:13:36 Checkout: 05/11/2024 14:40:00 Address: [address] [place] [address] PCP: Balwinder Miller MD PROVIDER INFORMATION Provider Role Assigned Unassigned Ian Lynn ED 05/11/2024 14:18:35 Audelia Pool COMMUNITY MARKETING COORDINATOR Nurse 05/11/2024 14:30:10 VITALS INFORMATION Vital Sign [...] right lower extremity Patient Understands: Comment: Normal [facility] ED Patient Summaryon 024 ED Patient Summary [facility] - Emergency Department [address] [place] [address] PATIENT DISCHARGE INSTRUCTIONS Patient Information Name: SILVIO CROWELL Age: 58 Years Date of : 1965 Reason For Visit: Wound infection; WOUND CARE Arrival Time: 05/11/2024 14:45:07 Primary Care Physician: Balwinder Miller MD Attending Physician: Kimberly Jones MD Comment: Visit Diagnosis: Diagnoses This Visit Chronic venous stasis (I87.8) Diabetic coma (E11.69) Wound infection ([id number]) The Pharmacy at [facility] is open Tuesday through Tuesday from [...] and/or drug addiction problems; contact the [facility], [facility]–1983 11/04 Crisis Hotline -Text 7DIFO px [phone]. If you received any narcotics, sedation, or [...] With: Address: When: Paul WORLEY, Balwinder Gauthier [address] [place] [address] Within 3 to 5 days Medication Information: The exam and treatment you received today in the [facility] Emergency Department were for an urgent problem and are not intended as complete care. It is important for you to follow up with a doctor, nurse practitioner, or physician?s assistant to the director for ongoing care. If your symptoms become [...] so we can reach you if necessary. [facility] Emergency Department has provided you with a complete list of medications post discharge. Please inform your establishment guide/provider of your visit and for further instruction on these medications. Any specific questions regarding your chronic medications and dosages should be discussed with your primary care physician(s) and/or pharmacist. New Medications [facility] [id number], [address] [place], [place] [id number], [phone] cephalexin (cephalexin 500 mg oral capsule) 1 [...] air Measu (more content not included)... Normal [facility] ED Patient Summary [facility] ? Urgent Care [address] [place] [address] PATIENT DISCHARGE INSTRUCTIONS Patient Information Name: SILVIO CROWELL Age: 58 Years Date of : 1965 Reason For Visit: Skin problem; WOUND EVAL Arrival Time: 05/11/2024 14:13:36 Primary Care Physician: Balwinder Miller MD Attending Physician: Ian Lynn Comment: Patient Education Medication Information: The exam and treatment you received today in the [facility] Emergency Department were for an urgent problem and are not intended as complete care. It is important for you to follow up with a doctor, nurse practitioner, or physician?s assistant to the director for ongoing care. If your symptoms become [...] so we can reach you if necessary. [facility] Emergency Department has provided you with a complete list of medications post discharge. Please inform your establishment guide/provider of your visit and for further instruction [...] with fat layer exposed. (T14.8XXA) Skin problem ([id number]) If you received any narcotics, sedation, or [...] during y (more content not included)... Normal [facility] Extra Greyon 05-11-2024 Tube Collected Yes Invalid Interpretation Code [facility] Comment on above: Performed By: #### 2 [id number], 9947683, 1708020, 91130610, 8193441, [id number] ####[facility] (DEFAULT)[address] [place] [address] Sed Rateon 05-11-2024 Sed Rate 33 mm/hr High 0-15 [facility] Comment on above: Performed By: #### 2 [id number], 8160504, 3934526, 09985076, 0867908, [id number] ####[facility] (DEFAULT)[address] [place] [address] Urgent Care Recordon 024 Urgent Care Record [facility] ? Urgent Care [address] [place] [address] PATIENT DISCHARGE INSTRUCTIONS Patient Information Name: SILVIO [...] and treatment you received today in the [facility] were for an urgent problem and are not intended as complete care. It is important for you to follow up with a doctor, nurse practitioner, or physician?s assistant to the director for ongoing care. If your symptoms become [...] so we can reach you if necessary. [facility] has provided you with a complete list of medications post discharge. Please inform your establishment guide/provider of your visit and for further instruction [...] strep) NO Flui (more content not included)... [facility] XR Tibia/Fibula 2 Views Maximino nate 05-11-2024 [...] MD 05/11/24 5:00 pm Technologist: Edith MEYER [facility] Outside Recordson 04-13-2024 Outside Records [id number] Coding Summaryon 03-09-2024 Coding Summary HTMLBase 64 XijcxdsrLEk9rXa+PGhlY WQ+AT0YSCKjP16isLXklE 6dP2YTFRfSAaqvJZZOKXh RAyIdvqRqNP9ilSKjDOEn IC8+NX3nHSKuXgmbbKTjj 0L5sVR5N83gmq2lQHlyyE F2OCWfKtLcdgpew0zysRe 6IDcuNmluOyBt IVNleJ19PVG8cT29Wb29j HLevEOot9urhQz8XvWoEG OpTEM4qVlkJJmzv2QsOTP sZ46fcUHul1O9 PTWugXjroMSuCsEtqND5v Y8fUAjfsfvgz5xmdctfBk p2dd05nTYnp2K6aEF3X7T vvoU9TDZtqVDj FbxkmIVNuN9hvbeby5vov gliLkFzANZpTJq6UGz5XW BkmAlnWqPoDS44YLS2HHR jcmKtC7FdINBn qApcYrI0u8C6Ju3NU4BFF rqrM8NOBROLMUnnkYS+PC 81bi75D2LcXktdKkc4YQT sAPW8aZD2nN2w UOXaXNgqi1W3iKY7J0Udm qQcma3dr8xsVVTdSAnsX9 5tfWKww6U4MFLciCY7WYG mmGzsDpRzbA74 Oyc+UEPlcVbjx7GxRtdwm 1gmv0yvoFr9PxwbEOYnkq UpwSzhWNI7a8WwQf4rATE ieBD4zEN1zA4u BfNyIgB8CCpiA758ZgMbx ZMjRsqgS62bD4CbvZP+PH VqOiy0NKZvzHukCU2sQ7S hZGRpbmctbGVm oRdyFY1tTLNydupkKNKis H2hGHCzQ8b2VeVgArT5AA reF8OpTDAnevilTx53xB2 fTzPdBoP4ISou M8RfeyB3VXNbdPQuNKagE YC6X83wc0Z7WHVyHIEyPG E3cWG0wP7ckOtzmmyldYL mdDsgdmVydGlj AUhmRUrlB684JRPkhHdfI kNvZGluZyBEYXRlOiAgMD YvMjEvMjAyNDwvdGQ+PHR sOGB9hZgfBFVq cWDoJCeaKs4urHkxeHbvC E9rZWUzkwrwRAStlJ8eNP DwhTCkuIfeYM1eVLWxdap fb771NlLrYDR9 TLWljOPeB2GoxT2uDuNgA CNvLLBaI0EgnPSeWZlbS9 51KGlqBvB5HJGdmmZlL5I sLWFsaWduOiB0 n9V5Gz8Bi0DcsgaoT8Juu YPsQhArAlrxGWo9C1WuHx wvdHI+IF53GBFiJJ63YWb 7OKD3sXeyYOff WPIwQ2WnyD9qAtDwKQTbJ GRkOyc+PHRhYmxlIHdpZH RoPScxMDAlJyBzdHlsZT0 yEy3bSTMeVJPs yRxfvOOzQzIut4wcRCJbS UicFZ9rtTtjE8KdlFM7VV Bfl1y0Tw31R64wD0KimQZ +RRAupUU6cQE5 nI5hOlBvKpX7YOjaE261L uKqaKYhGujhq3bzh9cxaX k2YmU5UNMxarKsjAweXDC 3s3WaJc57D53i IHdpZHRoPSIxNSUiIHZhb Uzjgb2zpN6aAp2+PGNvbC I1tYM0iY8mDbOkEpW9NFw dE463UrZemRCj Jsujc9ezv8atvFz7SpGnX RLpqiYiuBmwWIZ3t7RkKf 32F7MxzDnry7EcPbr3sp8 0yVQbm5K9iNP5 V9JsHARvrxxslEAxcDtmE F4mJNZlveqpGTNzvF1xVN QbK5w9QyNqBqF1OGksE0O bcvC7GZFlwBJg IZNfbSIRqF0bbxxnh9mhg kjsGxRySOMmGWf4JXj4UI SrmYxkLqUlZUA2HoO8BQR 7cVWjdM1xoZyx iavdgH0vAet+WOD7xLAep AURZV1kHmnpxYU+PHRkIH M3kSzjWGagRRDlzK4xPGQ gE3b4OoFlEhQ1 YQgyK5MpisV6NDAmjFEtQ VXylKALsL9yvebvi6eqjn luIhLzAAHpZIh5PDs1AYW saWduOiBsZWZ0 KiP7QLJ9zJSlpN6mvPajs nbimB6fHiu+QmlydGggRG G2GAp5J0ZsQtq7KDXllUs uJD2daAInHUnn Az7fmEfhjKkgVQ1uVSCyk tuad696EeUsp6xmSMAsqB KpOZtcOJX0Q19pp0M5FGT wTIKxVKO3jPE2 vS9ztKhdbjiunHSobEsmn sOobOpwTVwgLPpnO188BG WziSyqArDrYMt8R9LjZei 9JAQqjUooLJ2n wSWcAModTt3pmBexzLpiI P1jDDPvvvcif031PaLwi8 hbYSBagUFpRQbgDYJ3J15 qu9X9UBTeDOLs VKA9lIP6mL4gnIgdfyawo GVmdDsgdmVydGljYWwtYW kfV490QKHgxMwiFhSgoPk 9F5GeHzq8PUVl jAotRD1ojNJyUFchHe9ca FkidBzwIC0tSSTrmrttl3 96VcCvd5pdTYFojJIdIYo xMUG4S89ea1M1 WGVnBLMlPKC3gOM0pO0lm GlnbjogbGVmdDsgdmVydG wkPPtgIOckI386AYFmrAd nPlBhdGllbnQg ICfaBNn0K1NcRxxecPH+P J94CXYlUI98aCJjsLDdc2 yrmRs0DgPhWTNuVMK6aMz iOPgkm5FmTDDc G05urYHkp6F4JXMeeQukw XSiZxRyeUD5tO2xXQkyrg dst3cgytdcZdydj3ksel6 1pA48N13gDGrr ZHRoPSIzMCUiIHZhbGlnb z5upC0fAd1+XFHlnLV9mC G9xG9zFZOlVkX1NIlpW10 9InRvcCIvPjxj f0lgj9zxsRa5DiN7XHBts sDgyTyeOWC7v3YzUh03Z2 9sIHdpZHRoPSIyMCUiIHZ eyWcvlx3ktZ6h Ii8+BPNqbWE1wEF5fK5sV jOxLgK3GQibZ174VaHwrE EuNcwzY17hK1TgqMY+PHR gQra2QTUvgAgh GW7osWQkDFpkMc3zIOW4D wKfQvIlBRbcF2HsHCSwac pmxgmmoYG1ZRRbOSNorH2 4Cn6cfEpbDYXi rUDIbG2ooxlvv3qkjgwtZ pPgLMKsBIy0TZv3LRYtfK npEcOsZLE2NcG4HAH4wXX woA2zmGlllyfk uC7iX1CkGXKlzletBz27j E6hBvCsTjK7BInpJzr+U0 EDZPMUZwfyZHFTN1gyMUt ONV27X8MwTwa6 AGKjsPkmJR1noEGpRKrlA u2nxKcbaLpyYI9cTBJlpd fzFPJqyD2hTUOjjSCnfZa rBQ7fFICnuihv e103HjPsDVZ4EZGkwVBgQ 4LswV5hMuDkPRYtPNXwQ4 YolDEtKTqmV008PShwFhY 2UQYljoHqW2Hs TOYqmJotHhG1d0I8Ee8zY q0oZG9aBPD1AG32HM23xZ Rlz3R6lEM3E0OsDVUdami awbpxwVW3AGTu YPTlwY28xPEaULhaJu7ix 5Q4m300JGSrZAWtyR01Kd 9nnDxxQYBrsWXNmK7idld yi7duoceeTkKe KCCrWHu7ALv3QMVwjVpbB wOxCHI5CbJ9HCJ9zOWmmF 9glYfknlsvoT3iHjd+NTk vOKFwyrY3Y2Du Yuf7QFLufQbeNW8phFOcC PmnEi0wuUydhCqkXS8hWB OutvvxFQQiwQ3iHSYmcRN ubGmaBT5pMLPh aoqrh432OuCsYFG2JOWss DMdQ9HpmS1kEqXjMPPzUD CjD6DsaWMmCDcfH623YPs vXuM1UEHhjcQe O1FsBSYzsAxcJcM3k8O7R m2PGLoQMH13WX03fINnj8 I0xST2D0GnJHPknjjvfss ewEC9TPLeVBVc zB17gAExTDnmTv7mn2U4s 055XSRwTJDyfA63Wt3kyG nmMZUpuMYScZ6nrgxji5f vcjogIzAwMDAw TSj2LOm7YMXqzRtsJvIbL WM9FfW3PTU3vBTjqD7byN hrnyoaaZ1hDzt+T5Y2E9W kPjwvdHI+PC90 BNWfSZ75vUHayGPhj8wec Gi7VfCeEQTkMAH8mMjfGD syw6BcEIBfJ87vaKIye7L 6IGNvbGxhcHNl JbFdxFB6hC2lPJoscmpay 2jdoqpyCesol1fuvh36hB 55W54wCEziCRKhRQFwUQU gQXXzyLgnap8h vK2kFo3+NMYsiDW3hHK2k V3jLfFrCsR4NPmmK583Ue YfeKZaZirhr6mnn8drwWd 9IjIwJSIgdmFs zLbsQZY3g7XcUo14P68qH HdpZHRoPSIyMCUiIHZhbG urlu4yvO6vSj9+QS9na7q nhq54uH06oXH+ OBJnAHB1lBgdQSavAPWma U5aFTjwRdK7QDWhDtXniH 34iFDyDKjhVm1bnLefjRa qAI0aNXPllfva p661QrJud9qeFQNdhQEgG EhxZHL4F62de0F9LWEgRO JfZQT3yWL4oA9uuFfcxnb gbGVmdDsgdmVy aCvkQUyqWNkyT076CRRld JfdSqOawEQhR8owfmKAXF 1lOjwvdGQ+INKbQPQ9iHv mZMgmJIGjfR2n WKPlG3y6TbFxSqJ5MWxyV 6UxzvK9BVSpaYLfXBNeuA GWvQ0otrclc5yggpwtYjI lIMLjKCj5KWo0 CFCvwQsqZzGjGEA6QtA2E VY9bTXfkY0enJsupuoxmB 9wOyc+RklOOjwvdGQ+PHR cAEE2lOpuODig WWZpuC6kTDIjW5j3UkKcN jM9EOroO9GmkwS0WFBzqD QzAVZpdBFGgK3qrsmwp1d vcjogIzAwMDAw KRk5PSd2CPQnkZykMhNsU FW1PwU8UPY7eOZuqQ4ltB vwjcakyT3gIvz+TVJOOjw vdGQ+PHRkIHN0 eRapAHeiEZXzgQ9qAGXjL 3s9WpDvMeA6HZosQ6Edca Z9CBKlsPObDALfpOKMqK0 hkohnl8ctdppw HyHjMVYsIIj6ERa1GRVcy KahDdRpNRA7PoB1MLD2oC DvtM7jfTnsbrhaoE0kPpc +HHM2YKG1KJ33 HL78E7RwDdpqqDYzePO+P HRhYmxlIHdpZHRoPScxMD WtCsMcsAhaTG8nGa8hJLU yLWNvbGxhcHNl OiB (more content not included)... Normal [facility] Office/Clinic Noteon 024 Office/Clinic Note Patient: [...] 135.620 kg Body Mass Index 39.63 kg/m2 [place] Body Weight Calculated 79.52 kg BSA Measured [...] open area.. Impression and Plan Diagnosis Diabetes ([id number] E11.9). Plan: Will resend his Farxiga and glimepiride to the pharmacy to get him back on medication. Will have follow-up in 3 months we will recheck his A1c at that time. Also discussed with him ab (more content not included)... Normal [facility] Office/Clinic Noteon 024 Office/Clinic Note Patient: [...] 135.440 kg Body Mass Index 39.57 kg/m2 [place] Body Weight Calculated 79.52 kg BSA Measured 2.64 m2 General: Alert and oriented, No acute distress. Respiratory: Lungs are clear to auscultation, Respirations are non-labored, Breath sounds are equal. Cardiovascular: Normal rate, Regular rhythm, No murmur, +2 edema of the legs bilaterally. Positive bullae on the right anterior martinez.. Impression and Plan Diagnosis Diabetes (NQU49-WC E11.9). Plan: Will increase his Ozempic to 0.5 mg weekly. New prescription sent.. Orders Orders Evaluation and Management: 69517 Office visit - established pt, Level 3 (Order): 10/03/2023 13:43 EST, Qty: 1, Diabetes - Pedal edema. Diagnosis Pedal edema ([id number]-ET R60.0). Course: Discussed with patient the importance of taking his medication daily. It would help preventing the edema and therefore the blisters in his legs. Also wear compression stockings would be beneficial.. [Electronically Signed on: 10/03/2023 14:20 EST] Balwinder Miller MD [Verified on: 10/03/2023 14:20 EST] Balwinder Miller MD [facility] 08-25-2023 Outside Records [id number]#1 [facility]-2023 Outside Records [id number]# 1.00OTGTIFF [facility] Office/Clinic Noteon 023 Office/Clinic Note Patient: SILVIO [...] 300.203 lb Body Mass Index 39.79 kg/m2 [place] Body Weight Calculated 79.52 kg BSA Measured [...] feet. No (more content not included)... Normal [facility] Creatinine W/GFR [place] [facility] 11-21-2020 Creatinine [Mass/Vol] 1.81 mg/dL High 0.51 - 1.19 mg/dL [employer] Phone: GFR Non- 39 mL/min Low >60 [employer] Phone: GFR/1.73 sq M predicted among non-blacks MDRD (S/P/Bld) [Vol rate/Area] 47 mL/min/{1.73_m2} Low >60 [employer] Phone: GFR/1.73 sq M predicted among non-blacks MDRD (S/P/Bld) [Vol rate/Area] [employer] Phone: Comment on above: Average GFR for 50-5 9 years old: 93 mL/min/1.73sq m Chronic Kidney Disease: <60 mL/min/1.73sq m Kidney failure: <15 mL/min/1.73sq m eGFR calculated using average adult body mass. Additional eGFR calculator available at: http://www.[employer]/multiple_crcl_2011.htm Interpretation and review of laboratory results Abnormal [employer] Phone: MRI BRAIN W WO CONTRASTon MRI [...] Octavio Inman MD 11/21/20 Final result Normal 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 No abnormal postcontrast enhancement. [employer] Phone: EXAMINATION: MRI OF THE BRAIN WITHOUT [...] The soft tissues demonstrate no acute abnormality. [employer] Phone: Don, Mhpn Incoming Radiant Results From [employer] - 11/21/2020 12:08 PM EST EXAMINATION: MRI [...] acute intracranial abnormality. No abnormal postcontrast enhancement. [employer] Phone: Vital Signs Date Time Vital Sign Value Performing Clinician Faci lity 11-21-2020 11:[id number] Pulse (Heart Rate) 75 /min Year Up Phone: 11-21-2020 11:[phone] Pulse Oximetry 95 % [employer] Phone: Encounters Encounter Date Encounter Type Care Provider Facility Start: 07-20-2024 End: 07-20-2024 ambulatory Morgan R Dolce Facility:[facility] Start: 07-09-2024 End: 07-09-2024 ambulatory Morgan R Dolce Facility:[facility] Start: 06-29-2024 End: 06-29-2024 ambulatory Morgan R Dolce Facility:[facility] Start: 06-19-2024 ambulatory [facility] Facility :[facility] Start: 06-07-2024 End: 06-07-2024 ambulatory Maria L [facility] Facility:[facility] Start: 06-07-2024 End: 06-07-2024 ambulatory Balwinder Miller Facility: [facility] Start: 06-04-2024 ambulatory Morgan R Dolce Facility :[facility] Start: 05-31-2024 End: 05-31-2024 ambulatory [facility] Facility:[facility] Start: 05-25-2024 ambulatory Morgan R Dolce Facility :[facility] Start: 05-17-2024 End: 05-17-2024 ambulatory [facility] [facility] Start: 05-11-2024 End: 05-11-2024 Emergency department patient visit Balwinder Miller Facility:[facility] Start: 05-11-2024 End: 05-11-2024 ambulatory Balwinder Miller Facility:[facility] Start: 02-08-2024 End: 02-08-2024 ambulatory Balwinder Miller Facility: [facility] Start: 01-02-2024 End: 01-02-2024 ambulatory Balwinder Miller Facility: [facility] Start: 10-03-2023 End: 10-03-2023 ambulatory Balwinder Miller Facility: [facility] Start: 08-03-2023 End: 08-03-2023 ambulatory Balwinder Miller Facility:[facility] Start: 11-21-2020 End: 11-21-2020 Subsequent hospital visit by physician Yeimi Castro 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 Start: 11-21-2020 End: 11-23-2020 Subsequent hospital visit by physician Yeimi Mri Rm 1 (1.5t) [facility] MRI Comment on above: Tremor Start: 04-15-2018 End: 04-16-2018 Patient encounter MOHCARITOED ALKJACQUIETEEB [facility] Procedures Date Procedure Procedure Detail Performing Clinician Start: 11-21-2020 Mri brain brain stem w/o w/contrast material Greta Gonzalez Work Phone: Start: 11-21-2020 CREATININE W/GFR POI NT OF CARE Greta Gonzalez Work Phone: Start: 04-15-2018 Echo tthrc r-t 2d w/wom-mode compl spec&colr d MOHCARITOED ALKHATEEB Start: 04-15-2018 [facility] COMPL [facility] Plan of Treatment Date Care Activity Detail Author Start: 11-21-2021 Creatinine measurement Creatinine monitoring [employer] Phone: Start: 05-20-2020 Influenza vaccination Flu vaccine (#1) [employer] Phone: Start: 01-19-2020 Potassium monitoring Potassium monitoring [employer] Phone: Start: 03-11-2019 Annual Wellness Visit (AWV) Annual Wellness Visit (AWV) [employer] Phone: Start: 12-26-2018 Lipid panel Lipid screen [employer] Phone: Start: 11-13-2018 HbA1c (Bld) [Mass fraction] A1C test (Diabetic or Prediabetic) [employer] Phone: Start: 11-13-2018 TSH Qn TSH testing [employer] Phone: Start: 2014 Screening for malignant neoplasm of colon Colon cancer screen colonoscopy [employer] Phone: Start: 2014 Shingles Vaccine (1 of 2) Shingles Vaccine (1 of 2) [employer] Phone: Start: 1983 DTaP/Tdap/Td vaccine (1 - Tdap) DTaP/Tdap/Td vaccine (1 - Tdap) [employer] Phone: Start: 1983 Hepatitis B vaccine (1 of 3 - Risk 3-dose series) Hepatitis B vaccine (1 of 3 - Risk 3-dose series) [employer] Phone: Start: 1982 Diabetic microalbuminuria test Diabetic microalbuminuria test [employer] Phone: Start: 1979 HIV screening HIV screen [employer] Phone: Start: 1974 Diabetic foot examination Diabetic foot exam [employer] Phone: Start: 1974 Diabetic retinal exam Diabetic retinal exam [employer] Phone: Start: 1970 Pneumococcal 0-64 years Vaccine (1 of 1 - PPSV23) Pneumococcal 0-64 years Vaccine (1 of 1 - PPSV23) [employer] Phone: Start: 1964 Hepatitis C screening Hepatitis C screen [employer] Phone: Payers Date Payer Category Payer Medicare [id number] 2021 Private Health Insurance [id number] 2017 Private Health Insurance [id number] 2014 Medicare [id number] 1965 Unknown [id number] 2.16.8 [id number] 1964 Unknown [id number] 2.16.8 40.1.975914.3.579.2. 1964 Unknown [id number] 2.16.8 40.1.510044.3.579.2 1964 Unknown [id number] 2.16.8 40.1.525972.3.579.2 1964 Unknown [id number] 2.16.8 40.1.571464.3.579.2 1964 Unknown [id number] 2.16.8 40.1.387872.3.579.2 1964 Unknown [id number] 2.16.8 40.1.863828.3.579.2 1964 Unknown [id number] 2.16.8 40.1.093824.3.579.2 1964 Unknown [id number] 2.16.8 40.1.102438.3.579.2 1964 Unknown [id number] 2.16.8 40.1.810627.3.579.2 1964 Unknown [id number] 2.16.8 40.1.754842.3.579.2 1964 Unknown [id number] 2.16.8 40.1.759953.3.579.2 1964 Unknown [id number] 2.16.8 40.1.578930.3.579.2 1964 Unknown [id number] 2.16.8 40.1.320801.3.579.2 1964 Unknown [id number] 2.16.8 40.1.015106.3.579.2 1964 Unknown [id number] 2.16.8 40.1.605936.3.579.2 1964 Unknown [id number] 2.16.8 40.1.663617.3.579.2 1964 Unknown [id number] 2.16.8 40.1.555757.3.579.2 Social History Date Type Detail Facility Start: 11-19-2020 Tobacco smoking stat 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 ? Take [id number]-ekjjows and prescription medicines only as told by [...] need. This informat (more content not included)... [facility] Clinical Note 05-11-2024 Note Date & Type Note Facility 05-11-2024 Note Patient Education Materials Foll ows: [facility] Medication management note 09-26-2023 Note Date & Type Note Facility 09-26-2023 Note Entered by FOSTER SOLANO on September 26, 2023 09:35:50 EST From: FARHANA SOLANO To: [facility] #[id number] Sent: 09/26/2023 09:35:50 EST Subject: Medication Management Submitted: Complete:dapagliflozin (Farxiga 10 mg oral tablet) Signed by FARHANA SOLANO 09/26/2023 09:35:00 EST Approved with modifications: dapagliflozin (FARXIGA 10 MG TABLET) take 1 tablet by mouth once daily Qty: 30 tab(s) Days Supply: 30 Refills: 3 Substitutions Allowed Route To Pharmacy - [facility] #[id number] Signed by FARHANA SOLANO From: [facility][id number] To: Balwinder Miller MD Sent: September 24, 2023 8:55:24 AM CHIEF OPERATING OFFICER Subject: Medication Management Due: September 25, 2023 12:23:24 AM CHIEF OPERATING OFFICER On Hold Pending Signature Drug: dapagliflozin (Farxiga 10 mg oral tablet), take 1 tablet by mouth once daily Quantity: 30 tab(s) Days Supply: 30 Refills: 4 Substitutions Allowed Notes from Pharmacy: Dispensed Drug: dapagliflozin (Farxiga 10 mg oral tablet), take 1 tablet by mouth once daily Quantity: 30 tab(s) Days Supply: 30 Refills: 0 Substitutions Allowed Notes from Pharmacy: [facility] Summary Purpose Family History No Family History Records FoundNo Family History Records FoundNo Family History Records Found Advance Directives No Advanced Directives Records FoundDocuments on File Type Date Recorded 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 ACP-Advance Directive ACP-Power of World Language Teacher Latest Code Status on File Code Status Date Activated Date Inactivated Comments Full Code 01/18/2019 9:29 PM 01/19/2019 4:12 PM Full Code 01/18/2019 3:08 PM 01/18/2019 9:29 PM Full Code 09/20/2018 10:02 AM 09/21/2018 2:37 AM Full Code 12/26/2017 10:02 PM 12/27/2017 4:44 PM Full Code 12/26/2017 11:10 AM 12/26/2017 9:52 PM Documents on File Type Date Recorded 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 Was in MRI before process description writer was present. [employer] rep has already [...] section and content) DATE CREATED AUTHOR 04/16/2018 [facility] DATE CREATED AUTHOR AUTHOR'S ORGANIZ ATION 11/24/2020 [facility] DATE CREATED AUTHOR AUTHOR'S ORGANIZ ATION 07/22/2024 [facility] Reason for Visit (unrecogniz ed section and content) Status Reason Specialty Diagnoses / Procedures Referred By Contact Referred To Contact Closed Radiology Diagnoses Tremor Procedures MRI BRAIN W WO CONTRAST Greta Gonzalez, DO [address] [place] [address] FOR RECORDS PERTAINING TO PATIENTS WHO ARE [...] BE BASED ON THE PRIMARY CLINICAL RECORDS. [employer] provides no warranty or guarantee of the accuracy or completeness of information in this document.
[2024-07-23 14:55] VITALS: BMI 39.3
--- NOTE | 2024-07-23 15:00 | W.VEIN ---
Discharge Plan Discharge Disposition: Home, Self-Care Outpatient Diagnostics: VC Endovenous Ablation 1VeinRT (Routine) Timeframe: 1 Month Facility: [facility] [place] - Location: [facility] Center Ordered By: Good Robbins Follow Up Appointments: 08/06/24 Plan of Treatment: EVLT of right SSV EVLT Tumescent Anesthesia: 500 mL 0.9% NS with 20 mL 1% Lidocaine and 10 mL 8.4% NAHCO3 Buffered Local Anesthesia: 10 mL of 1% Lidocaine Buffered Print Language: Iranian Discharge Date/Time: 07/23/24 15:01
== END 2024-07-23 15:01 | disposition home or self-care (01) ==
PROVIDERS: PCP Radiology Diagnostic Radiology; Visit Provider Radiology Diagnostic Radiology
DX: I80.01 Phlebitis and thrombophlebitis of superficial vessels of right lower extremity (principal)
CPT/HCPCS: 93971; G0463

== ENCOUNTER 2024-08-06 12:54 | Outpatient (OUT) | payer OTHER, SELFPAY ==
--- NOTE | 2024-08-02 10:08 | VEINCLINIC_ITS ---
Vital Signs 08/06/24 13:02 BP 142/84 H BP Location Left Brachial BP Position Sitting BP Cuff Size Large Adult BP Source Manual Cuff Respiration 18 Pulse 67 Pulse Source Monitor Pulse Oximetry (%) 96 Oxygen Delivery Method Room Air Comment The patient's blood pressure is elevated. Varicose Veins Patient in this day for EVLT of right SSV Jone Willson MD personally performed the services described in this documentation, as scribed by Myron Mina RN in my presence and it is both accurate and complete. Myron Willson RN, am scribing for, and in the presence of, Dr. Jone Vallejo and in the presence of the patient. Review of Systems ROS Narrative Jone Willson MD personally performed the services described in this documentation, as scribed by Myron Mina RN in my presence and it is both accurate and complete. Myron Willson RN, am scribing for, and in the presence of, Dr. Jone Vallejo and in the presence of the patient. Status of ROS 10 or more systems reviewed and unremark able except as noted in history and below Cardiovascular Reports: edema Integumentary/Breast Reports: itching, redness, skin pain, skin tenderness, skin swelling, new lesion, changing lesion, non-healing lesion and changes in skin color Neurological Reports: numbness in extremities and weakness in extremities [facility] Medical History (Updated 08/06/24 @ 13:20 by Myron Mina) Phlebitis of superficial vein of right lower extremity ?I80.01 - Phlebitis and thrombophlebitis of superficial vessels of right lower extremity (ICD-10) Phlebitis and thrombophlebitis of superficial vessels of right lower extremity ?I80.01 - Phlebitis and thrombophlebitis of superficial vessels of right lower extremity (ICD-10) Hernia ?K46.9 - Unspecified abdominal hernia without obstruction or gangrene (ICD- 10) Heart attack ?I21.9 - Acute myocardial infarction, unspecified (ICD-10) Bilateral leg edema ?R60.0 - Localized edema (ICD-10) Pain due to varicose veins of both lower extremities ?I83.813 - Varicose veins of bilateral lower extremities with pain (ICD-10) COPD (chronic obstructive pulmonary disease) ?J44.9 - Chronic obstructive pulmonary disease, unspecified (ICD-10) Advanced cardiac disease ?I51.9 - Heart disease, unspecified (ICD-10) CHF (congestive heart failure) ?I50.9 - Heart failure, unspecified (ICD-10) Ulcerated leg varices ?I83.009 - Varicose veins of unspecified lower extremity with ulcer of unspecified site (ICD-10) ?L97.909 - Non-pressure chronic ulcer of unspecified part of unspecified lower leg with unspecified severity (ICD-10) Neuropathy ?G62.9 - Polyneuropathy, unspecified (ICD-10) Diabetes ?E11.9 - Type 2 diabetes mellitus without complications (ICD-10) Surgical History (Updated 08/06/24 @ 13:23 by Myron Mina) Status post laser ablation of incompetent vein ?Z98.890 - Other specified postprocedural states (ICD-10) Status post laser ablation of incompetent vein ?Z98.890 - Other specified postprocedural states (ICD-10) H/O gastric sleeve ?Z90.3 - Acquired absence of stomach [part of] (ICD-10) H/O hernia repair ?Z98.890 - Other specified postprocedural states (ICD-10) ?Z87.19 - Personal history of other diseases of the digestive system (ICD-10) Family History (Updated 07/02/24 @ 10:43 by Myron Mina) Other Family history of cancer Heart disease Hypothyroid Social History (Updated 07/03/24 @ 13:38 by Myron Mina) Within the past year, how often did you have a drink containing alcohol: monthly or less Smoking status: Former smoker Non-prescribed substance use: denies use Meds Home Medications and Allergies Home Medications ?Medication ?Instructions ?Recorded ?Confirmed ?Type apixaban 5 mg tablet (Eliquis) 5 mg PO Q12H 07/03/24 07/03/24 History budesonide-formoterol HFA 80 1 inh inhalation BID 07/03/24 07/03/24 History mcg-4.5 mcg/actuation aerosol inhaler (Symbicort) dapagliflozin propanediol 10 mg 10 mg PO DAILY 07/03/24 07/03/24 History tablet (Farxiga) furosemide 20 mg tablet 20 mg PO DAILY 07/03/24 07/03/24 History glimepiride 4 mg tablet 4 mg PO BID 07/03/24 07/03/24 History metoprolol tartrate 25 mg tablet 25 mg PO Q12H 07/03/24 07/03/24 History ranolazine 1,000 mg 1,000 mg PO BID 07/03/24 07/03/24 History tablet,extended release,12 hr Allergies Allergy/AdvReac Type Severity Reaction Status Date / Time hydromorphone (From Dilaudid) Allergy Intermediate Difficulty Verified 07/03/24 15:09 Breathing Exam Narrative Exam Narrative: Jone Willson MD personally performed the services described in this doc umentation, as scribed by Myron Mina RN in my presence and it is both accurate and complete. IMyron RN, am scribing for, and in the presence of, Dr. Jone Vallejo and in the presence of the patient. Constitutional Documenting provider has reviewed patient's vital signs: yes Common normals: oriented x3 Nutritional appearance: overweight Cardio Peripheral pulses: posterior tibial pulses present and dorsalis pedis pulses present Extremity Common normals: normal capillary refill General: calf tenderness and edema Right lower extremity: lower leg Right lower leg: inspection and palpation Left lower extremity: lower leg Left lower leg: inspection and palpation Neuro Common normals: oriented x3 Assessment and Plan Assessment and Plan (1) Pain due to varicose veins of both lower extremities: Plan f/u examination with physician along with right leg limited u/s Jone Willson MD personally performed the services described in this documentation, as scribed by Myron Mina RN in my presence and it is both accurate and complete. Myron Willson RN, am scribing for, and in the presence of, Dr. Jone Vallejo and in the presence of the patient. Procedures Procedure Instructions Procedures Plan of care: Risks and benefits of the procedure were discussed at length and informed written consent was obtained.? Time-out completed for verification of correct patient, procedure and site.? Staff present during time-out: Myron Mina RN,? Good Robbins MD, Shreya Patel RDMS,. Time Out Time__1330 Patient prepped and procedure performed in usual sterile fashion. Risk of injury related to use of Diode laser and/or laser devices__CR___ ? Serial number of laser used :? [id number] Control panel self test performed, electrical cords in good condition, floor is dry, basin of water available, fire extinguisher in close proximity_CR__ Polycarbonate goggles available and Laser warning signs outside of doors___CR__ Eye protection provided to patient and staff in room_CR___ Use of laser retardant drapes and dull blackened instruments as directed__CR___ Use of nonflammable prep solutions and use of saline soaked sponges to protect tissues as indicated _CR___ Length ___32 cm Laser operated by __Dr. Vallejo Physician verbal confirmation laser locked in place__CR__ Laser start time (date and time) _08/06/2024@__1343 Laser stop time(date and time) _08/06/2024@__1348 Panda _8.0___ Average laser use __1759 Joules Average laser use__220 seconds Pulse continuous ___CR_? Pulse intermittent ___ Amount of Tumescent used __225cc____ Evaluated patient for signs and symptoms of electrical injury __CR___ ? Skin clear at insertion site __CR___ Patient tolerated procedure well.? Right leg Coban dressing applied to access site.? Applied right thigh high leg compression stocking. Will return on 08/14/2024 for right leg limited venous ultrasound and exam. IJone MD personally performed the services described in this documentation, as scribed by Myron Mina RN in my presence and it is both accurate and complete. I, Myron Mina RN, am scribing for, and in the presence of, Dr. Jone Vallejo and in the presence of the patient.
--- NOTE | 2024-08-02 10:14 | P.DS_ITS ---
Discharge Plan Discharge Disposition: Home, Self-Care Outpatient Diagnostics: VC Facility EST LMTD (Routine) Timeframe: 2 Weeks Facility: [facility] - Location: Vein Center Ordered By: Jone Vallejo VC EXT Venous RT LMTD (Routine) Timeframe: 2 Weeks Facility: [facility] - Location: Vein Center Ordered By: Jone Vallejo Follow Up Appointments: 08/14/2024 Plan of Treatment: f/u evaluation with physician along with right leg limited u/s Patient Instructions: Endovenous Ablation (DC) Print Language: Divehi Discharge Date/Time: 08/06/24 13:21
--- NOTE | 2024-08-06 12:55 | VEIN_ITS ---
[address] [address] Patient Name: SILVIO CROWELL MRN: [id number] date: 1965 Sex: M Assigned Patient Location: Current Patient Location: Accession/Order Number: [id number] Exam Date: 08/06/2024 13:01 Report Date: 08/06/2024 15:08 At the request of: BALWINDER LYON Procedure: VC Endovenous Ablation 1VeinRT EXAMINATION: VC Endovenous Ablation 1VeinRT HISTORY: I83.813 - Varicose veins of bilateral lower extremities w... The risks and benefits of the procedure had been previously discussed, and were rediscussed at length. Informed written consent was obtained. Myron Mina RN and Shreya Cummings RDMS assisted. Time out procedure was performed. The right lower extremity was prepared and draped in the usual sterile fashion to allow knee flexion in the sterile field. Duplex ultrasound probe was draped in a sterile cover, sterile transmission gel was used. Venous mapping was performed with the areas of dilation and large tributaries marked. The total length was 32 cm from the entry 3 cm above the ankle to 1 cm proximal to insertion into the deeper musculature of the thigh extension. The diameter of the right small saphenous vein ranged from 6.2 mm. A 30 gauge needle and 1% buffered lidocaine was used to anesthetize the entry site. A 4 mm incision was made with a scalpel and the saphenous vein was entered percutaneously under direct ultrasound guidance with a micropuncture set, a single stick was successful in gaining access. A micro-guide wire was inserted and the needle removed. A micro-set including a dilator was inserted over the microwire and the needle and dilator were removed. A guide wire was inserted through the micro-set and guided through the saphenous vein to the saphenofemoral junction. The dilator was removed and an introducer sheath was inserted over the wire until the end of the sheath entered the saphenofemoral junction. The dilator and wire were removed and the 600 micron fiber was introduced and placed and positioned so that it extended beyond the sheath and was 3 cm distal to the saphenofemoral or saphenopopliteal junction. Final position of the fiber was determined by ultrasound guidance and duplex imaging. Arthurcent anesthetic was delivered by ultrasound guidance. 225 cc of fluid was delivered along the entire course of the saphenous vein. The solution consisted of 1000 cc of normal saline with 40 mL of 1% lidocaine and 20 mL of sodium bicarbonate. A final positioning check was made. The energy source was turned on by means of the foot pedal and the fiber and sheath were withdrawn. The total number of Joules delivered was 1759. The laser was active for 220 seconds under continuous pulse, average laser use of 8 J. Laser start time: 1:43 PM Laser stop time: 1:48 PM Date: 08/06/2024. A duplex ultrasound revealed compressibility and flow at the saphenofemoral junction immediately after the procedure. Hemostasis at the access site was achieved. The skin incision of the saphenous vein was closed with a 4 x 4. A compression stocking was applied. Postop instructions were given. A follow up appointment was recommended and scheduled. The patient tolerated the procedure well. Electronically authenticated by: RUPA BINGHAM Date: 08/06/2024 15:08
[2024-08-06] MEDS: LIDOCAINE HCL 1% 100 MG/10 ML MDV INJ (12:56)
[2024-08-06] MEDS: 0.9 % SODIUM CHLORIDE 500 ML, LIDOCAINE HCL 20 ML, SODIUM BICARBONATE 10 MEQ INJ (12:56)
[2024-08-06 13:02] VITALS: BP 142/84; PULSE 67; O2SAT 96
--- OUTSIDE RECORDS SUMMARY | 2024-08-06 13:17 | XMS_ITS | CCD ---
Author Organization [facility] Care Team Providers Care Armorer Technician Name Role Phone RORY ZEPEDA Unavailable Unavailable BALWINDER MILLER Unavailable Unavailable GRETA GONZALEZ Referring Unavailab le BALWINDER MILLER Primary Care Unavailable Balwinder Miller Primary Care Provider [phone] Dolce, Morgan R Admitting Unavailable Dolce, Morgan R Attending Unavailable Balwinder Miller Primary Care Unavailable Dolce, Morgan R Admitting Unavailable Dolce, Morgan R Attending Unavailable Balwinder Miller Primary Care Unavailable Dominick Chavira Attending Unavailable Balwinder Miller Primary Care Unavailable Dominick hCavira Admitting Unavailable Dominick Chavira Attending Unavailable Dominick Chavira Admitting Unavailable Balwinder Miller Primary Care Unavailable Balwinder Miller Primary Care Unavailable Ian Lynn Attending Unavaila ble Ian Lynn Admitting Unavaila ble Dolce, Morgan R Admitting Unavailable Dolce, Morgan [...] Primary Care Unavailable Balwinder Miller Attending Unavailable Breanne Norman Attending Unavailable Breanne Norman Admitting Unavailable Balwinder Miller Primary Care Unavailable Dolce, Morgan R Attending Unavailable Dolce, Morgan R Admitting Unavailable Balwinder Miller Primary Care Unavailable Balwinder Miller Primary Care Unavailable Balwinder Miller Admitting Unavailable Balwinder Miller Attending Unavailable Kimberly Jones Attending Unavailable Kimberly Jones Admitting Unavailable Balwinder Miller Primary Care Unavailable Dominick Chavira Attending Unavailable Dominick Chavira Admitting Unavailable Balwinder Miller Primary Care Unavailable Maria L Hand Attending Unavailable Maria L Hand Admitting Unavailable Balwinder Miller Primary Care Unavailable Balwinder Miller Primary Care Unavailable Balwinder Miller Attending Unavailable Balwinder Miller Primary Care Unavailable Camelia Morgan R Admitting Unavailable Camelia Morgan R Attending Unavailable Allergies Allergy Classification Reported Allergen(s) Allergy Type Date of Onset Reaction(s) Facility (2 sources) NSAIDs Propensity to adverse reactions to drug 9 [employer] Phone: (1 source) HYDROmorphone; Translations: [Dilaudid] Drug Allergy [facility] Repository Medications Current Medications Medication Drug [...] Type 2 diabetes mellitus without complication, unspecified senior care insulin use status 1 kit by Does [...] If no relief after 1 dose, call 461. 47 tablet 3 12/27/2017 Active NONFORMULARY (2 sources) NONFORMULARY B 1 2 shot 2 weeks ago today 09-20-18 0 Active Pediatric Dfpckqne-Yljbwzcm-Q (FLINTSTONES COMPLETE PO) (2 sources) Pediatric Multivit-Minerals- C (FLINTSTONES COMPLETE PO) Take by mouth 0 Active Anpareom-Lwj-Wd-FA ( VITAMINS PO) (2 sources) take 1 tablet by mouth once daily Ejwsqjel-Plv-Er-FA ( VITAMINS PO) Take 1 tablet by [...] 1 dose by inhalation once daily Umeclidinium [place] (INCRUSE ELLIPTA) 62.5 MCG/INH AEPB Indications: Chronic [...] disease (1 source) Atherosclerotic heart disease of [place] coronary artery without angina pectoris; Translations: [Atherosclerotic heart disease of [place] coronary artery without angina pectoris] Onset: 04-15-2018 [...] Interpretation Reference Range Facility Wound Care Noteon 08-02-2024 Wound Care Note [id number] [facility] Coding Summaryon 08-01-2024 [facility] PplfdkbeDQy5uTk+PGhlY WQ+PP1CWAVxJ46wnREpkH 4rI0TWEPeAJgwxPIRESBz FVhRffdPfUT1otCBhXYQe IC8+VC3fISGhFvultWVcb 5J8tOJ6E44wdj4dMUgbgL S5AZRdQtYuvbynh0oazGs 6IDcuNmluOyBt SKMraG97EKO1tF69Js33f FQnjITnd1sngJq1SlCwTR XqQVR1bObfJNgrn5YqCGH jF60fjQQav4I8 HYSjgFtsxXBkAcCbpDW8f H0hKVwjtkpku8sossqrVp f9wx15sDTeq3W5nFZ3I0B jitM4FEHodKHm XfhhhVFAyY0vqalrf0mzh aelTjEyAUNmDFf7EEb6WW LarGtnPvXlME41JOU9IMW zsdDnL9KjVZPo hCdpCyZ3q4Q8My5VB5EBW awkM4GVJAKCOSdpsME+PC 34oz10M3EfBdlsFzj2LRZ sVCJ2wVO1mJ8n SMGwWEpje2W3aWB6C4Zfm cLzkw4nz4ijKNByJYxuA5 3frKWsi3A6MGBbiRM4TDR crRshXxRmqA33 Oyc+HVDqbHksl8RkUpoqk 5whp0mpfSo3JrfpNLIzru RuvZseZUQ8l5ImRo2oWTY xoSD1kLI4pL2g YhPvVsR2YAqxY808XrEzw HMmHgprI47vX8VypMN+PH IbZjm5FLJvnJckBH7eN2N hZGRpbmctbGVm gMoxDJ1vDWDvsyadLWAkf M3lKTDtK3z1EhByJfX2AJ icN6FkKXQajdehOh52uB7 rNbAwZdB4FExz A9GzpuW9DPAxrQFlRIjmJ EU1K86yy3F0PHKlTXNkBJ K1mLQ7mY8zmOxcddwqiHW mdDsgdmVydGlj AOckGJsdR459TWDarJqwO kNvZGluZyBEYXRlOiAgMT EvMTMvMjAyNDwvdGQ+PHR jWFY6eHpzJNSx lFNwXFcgYk2zcPbflJmxE X0sMVJkkdffLTDewY3vJF XzeEPyrFazYD7bNNXjctq gh761XcXjWHE4 UHXtqWNzD7JiqL1hDdRhC VKoHMArR1BioDBtDDyaO6 34YJlyTxU8MNRcicUmL3W sLWFsaWduOiB0 l5Y8Ci0Zj5QhjctjV3Ysn PZqBkJbSikfZRz5A4QjAh wvdHI+LO46VBYsQC33BKu 0FWK0oXvtDLum JONcJ3QndY5nOgGnLTOaD GRkOyc+PHRhYmxlIHdpZH RoPScxMDAlJyBzdHlsZT0 oEx7fPRRdPYTh nTkakCPvRhUyt2eqKECzR FufJJ8lhTolB1WxxSG3DX Qst8s9De35L81uX0JprKP +IGNoaFB4nBD9 oR8tNgTyVtO1CTksW189B nKglKPgGhtdz6zqf3lqyE w0FnM5OUFabqGvhYajVWT 1h4UfVb96W94c IHdpZHRoPSIxNSUiIHZhb Sfpwq1vzN6oCx1+PGNvbC F5zDZ0wW5hZuQxEcW4GEm iJ520DqMvvHPq Zxaju3dcq4mwnJz1VnQnP ROhdcHbdAziAYY2f9VjQa 31R7JcmGkyd8VnNup5bo2 1vSCyp1A5rTB3 E4BfRRPjmpzsyHXkzUffE H0xMLOplhufTOVunB3aMA JrP4r3BqAsWzV9XLlmW6P bboJ0LHHxlJVf PHYtzDACnK8ccaoev1qem bwrPlEmFYWoPJs2XMb9VE DebBaxVmRzJYE0VfA0FPX 7mJYobQ5ruNfc sxuprF9qWyp+MLR0iEVpz VECKO1vSmbwnMT+PHRkIH J6zJfdGWtpDYKheY0wKGY cH8x2DuWnToX8 FOkkC6ZgqhB9SDKtjWHmK GWahOLZxZ8cjmsxo0elle ymMtFsNVQcNTz8GQn1DQE saWduOiBsZWZ0 HrN6CKS2oMHzxK4gaMeao iijuW3yXba+QmlydGggRG Q0AZx9C2DgCri4EBNdxUv vMH0vxAUxSMow Hp8bdHljrOasET4dIDHen mbti769YnYfm9coAHRquF PxAYxmTVZ6W00pi9P9ATD vUSDsYGU3yVB8 wP8yaNtapvkkiTKelFoci vHgyLkeYEjxEQwbA594KN AwmFqxVhIgSYk5C6HjKts 7UEAsbTfsCF4d fXKvAWemZp6gqCccwAuwE Q1lZLWxjqcww474CiNtc3 xiBVCjqPQcUCghGGF2W98 gk4Q8YQWyCWYa VSV2aRK2sZ0hhTmjjsahx GVmdDsgdmVydGljYWwtYW txY306XZZsmRkdXdTxgWe 0C0SrTnl2BCRz qBusEK2dlGZhSGleYx5ji OmayUqvDX6vPJDcedlam4 10ObIja6siYKLqqWZaSPz oIIR8V70ch5C2 UYQiGIVvKGW4vQJ7qB8yr GlnbjogbGVmdDsgdmVydG jiLOaeYNeoU915TZIfiRy nPlBhdGllbnQg NMluZSe8R0FyRrwijTZ+P Q74XKQlYA73aEMpfEVtn1 yxrSc3VoJfMHZrUGB2lFo bWLfla0QuQPBn B95apMWct7S6SNVwrSnqc YUiKsZxtBM5xC1fGYivkx mgv6rgrxzzZnllz4ivno5 2bK61G41zNRye ZHRoPSIzMCUiIHZhbGlnb y1tjI6dZv0+NEVztGD4oT O2tS8oVJRfZjC4FWhtB79 9InRvcCIvPjxj g0mlr6anzGk7CgN9KJErn yFsiPjrQTM2d7GvKd46F9 9sIHdpZHRoPSIyMCUiIHZ tbPgrcm6jcW3b Ii8+MHKdjYX1iSB5uA8fB zViRxZ1WXrvC508JqOkdS RiCiwhD59eK0VxdPN+PHR yZlq0SHGseLnp IQ9isHXaLIsySy9nSEZ9P aMuNfSbHUktA4UcJAXblb ammwdgnAZ4RGTjZEZrqC2 5Yx3imSuxLQGr zPSCcP5husbgm9vmyxdeJ dKuTLNcPOu7YMx1KZCzyA xiVwMoVKV9XfM3BNP7yTO qhS5yfMtobdnu bI1oU4WrNVHulxctYc95n C7uPqCeArC8FJfmCla+U0 ZUZKTDMbsgHVDBG1clUEj BHP77V2LfSiy0 DHPkeSswZH7ekYZuBBsbN o0jpUozwIqsGG0aFHWenr ubUEAepG4jQVUsfEPkyOo hMH5aUBManvko h409HuOiEFX3SIQevIAgI 3WusK1cNaRkESQsPDWaT8 DwbWUeKBvkH343SBreNlW 6QUZwwtAuD9Ap QZYxwIzdQwF2g5T4Yp5gC t7bVV4xTTA2VJ82DA36sV Xzc0L3zWC4B3PcIPDejnz mfvwjqWX9GVXm FRXsyP58dRMrFWdlDj2is 9V2s247QWMpFRIojT32Pn 4xrAcrPJStkWLXbP3jeiz rb0ogrbcqIhKi XLFbRBf2PDm3SVZoyFrqG eYzFBV1LqH6PRW0dMUotU 3cyZmhnkykrT4sAqu+NTk mIYBoxiL1I9Wv Cjt3XIGmwYkpUU7svAItD XfaXs2bdJobgPyzUY8lBA AohgygLLEwhJ5yWUOfsWP eeSeoLU6tMRDz quxkp973RpTiIPM6IDXwi GMmE5YtrI0qQvLmFQDyNN RwD4ZeoYCtFVzeN031OXv gKxD5PZPbryUl D4JpPSBdwSumMpN1w8B3G v3CAKlMAE27NF84dZAqi1 X5nIY0J1PfNVZulkokpme dfWH3PHEsSLGy rV71eYHmKIlzUl8kz2T4f 961OHMoBFJtlJ92Cc3ycX jiAPNojUTLwW4lqmzrt0f vcjogIzAwMDAw FYl0NRj2GJLtbExmOzEiH EM3PlD5WTL6tTPyyS4hmC hbrogcaG4wXnb+M0W9W4U kPjwvdHI+PC90 LMXiDU27tJXzqNCzm1sig Bu4UyEgSCQsHSN1fFvwEU xos7NxHVQvD13vjTRjh6E 6IGNvbGxhcHNl TjRdfCB2hX6rMAknawflf 2hblnuwPwupq5howe10uE 11X43pXCuiBSVsJTViVPN qJKArnPiupo9w oE7qQo2+TCVmfNO5qSD9e H4aMpUvAxN3QCqmJ343Bq GeqXUqOhzfb5vvc9mmeOc 9IjIwJSIgdmFs bVpsNCP3d8GoPo47D29uL HdpZHRoPSIyMCUiIHZhbG psey9xgX2bMg9+DQ5vz9e vay83qH39fQJ+ TXJsOOK4tTamWTewSSDos N7mRBwmNtV1FUQbCpZleF 36hYJkMJlyKi9dfUbbsYb gJY8kAVLeajij n649CxDei6mqUAOqjXMdS NvdQMU1M06ed2N9OMYdCY UhJDX6gCD2iG1peBuojik gbGVmdDsgdmVy eJvpZMlgXJhoK474WSAsa BrdZnSwiWHwU5dfgaGIPQ 1lOjwvdGQ+WTJxNDO4fDj jHZzwLWCwzQ6y YFYeO9c9TgSqDvU3VOycD 4SgcuV3BDInkAEeUMPitH MNyO7msskul6hetzhsKdR tFGTfXHc2BUe9 QDLmzMpbMcFwNTW8FcI8W WW8uLPwbH0rhDxulewhgS 9wOyc+RklOOjwvdGQ+PHR uEBW5kMahJXvn LRFmzB0iLHYrC5e9OeNcE cS3TNkbR3EiyuM2DBXqhS ToZXWlcNDSvE0acgbps2k vcjogIzAwMDAw RUp2VWi2ZWLczDujUxOcI JF3KfQ8PPB8sLPtqX0cxO sgbrpfhU0sHhq+TVJOOjw vdGQ+PHRkIHN0 fJoxWRdiDCDjwQ6pNOXbK 5o0GhZbHxB8HZscB2Ahrb X1WRAetYVqIVBuiZLXgD4 tvckaj8sprcsk AfKjUYNjCUj8FYw2VELzw RjjCzQkVUR0HiL0MIT3zO WlfF8hvXgraowqmN3nAdm +GSM1MXF1RC57 YS54K6JrAmhduPHgjEK+P HRhYmxlIHdpZHRoPScxMD GaBxEnwScvZU3eXz2kGHW yLWNvbGxhcHNl OiB (more content not included)... [facility] Coding Summaryon 07-23-2024 Coding Summary HTMLBase 64 RnbssadfYPc4nEt+PGhlY WQ+ZZ9UUGYfF33ldMNccB 1zL3LIMEcDQpvzEYQFYYk UXxTicdSaBQ9mqPQxDDFo IC8+NT9sZHXiKcsipYSwh 7L4dXY5Z50pab2eMAxwpS G2APCvXpAtbdssb1nquSy 6IDcuNmluOyBt ZWFohE47IVN0zQ44At98d EXhoOBfg8hfzFu2WvXwOR SpQTN2bYcgFVkxg7PyGYW vV48ujNPae2J3 NTJypCdisOAkSfKuaPT6d S7mPSfwyayty3vlxigiFl q4sl34fODee9W7iVY2S5L ijyO5DJBofTRf QilwqEIUxN6tysrax6emq mujYjTqBUJdLFx0VSq8YP StbJhcHeRfKA77KQB3BTS tdbJjS5JrBOKi hOmpLnL3m9S8Sv0MA9SBD onxD2PHZCRBMUqofQI+PC 40bc40H9NfExphFis3BSM sONV0hLT3eV2l GRWnULiqz8P8dAJ7U3Rqn xRleu4zk7odZESeNZzbV9 4ruPWgw3V6DCCznIW4EBH kkHwiSzOrfP29 Oyc+RKQxqVaue4BpAvuhj 7rep9ppxDt1FejhAEFwwo SefQfcZWE1e4EaVz0xLTK pjNB8gDA7hI6y CkFkNhF9NSkqN854ZxQui JJdVwvuW17pH9NhzWI+PH SxQdt6TXOyaFqeBC3lE8Q hZGRpbmctbGVm uBvgEP5cREKxdizqKXRae J7rMWMaR4z3MgNtZxD7SV zyV7IkEBHvfimhKt80tA7 zBfHzSdD5OAol J0HtsdI8QVShtUXcNVzqR VE9J53te6I8VQOaGQRgMQ J8rDJ2xI1fcMxhkedpvVN mdDsgdmVydGlj RLvqUGekL599TCZnqKbhR kNvZGluZyBEYXRlOiAgMT EvMDQvMjAyNDwvdGQ+PHR yKOE2rOzsFBVl hYPrPEdkLk0iwBymtKyvT R3mIVQtovsyQOUbzF2dEU FhuWVgrKffBK1iNPHivpq ah902XbNrYNC5 BISxtJIjG8CjqB9tMwIeZ TWiEWThV4XmbSAmIKqrQ6 66CGccVjI5ZYSfqkKaF1W sLWFsaWduOiB0 g3N9Dj2Ig8CmnzxsX0Cbx YTnMcPjHqslJSv4X2CzFb wvdHI+ZA40UIDwAR94PGc 5OFK3sIorTMkx QSDrP8JreQ9bZhFdRLJqE GRkOyc+PHRhYmxlIHdpZH RoPScxMDAlJyBzdHlsZT0 lMu8mFEOdTWIk pVpaxUKjQgDct5kvPVVpX NfgUT9cjRzmM0WxaAC4QA Egr4r8Cb89B24zD3VngMZ +GDGqsRM4sBP4 dA2iEpAdXrN5VAzjD127F aBnuTYuFfkob5tdv9iovH w9UiZ1NKCbnmUqxIulYFD 1r4RtLx77Q37u IHdpZHRoPSIxNSUiIHZhb Lsppf7drI8mZg0+PGNvbC J2zTY3kK1vTaZiOoW7WPo mZ541ShDgdYXd Yfdud3kbl3jgaTb9NzUnP OEyxlQcmKaoBHU2w9YfOm 47A1OpeZphi8UeLfj4fv5 1zFDam3P8fEA3 Z1AcGLUoysjoyTBlrOzvU P1hXHGnvoamVLXmfH3pAZ PmG4m6ZtRdHhP5JGqiX3N ptoG4SIGegHPk THOzzUHUiI3qkuahx6bvg awqLfYnTBPuBLp0RDp0XW GmgKgeNlLrOPS5RvG3JFG 2zVNghX6hmHnv ubzmfQ0xFvl+YBZ4iYWlp RUDWX0sZixslDJ+PHRkIH D4oBepCDevQFXjbJ4mVYV rO5s4OtCkMqK6 SRurV8QbvcL0CSXhwBBhW SZraVPTfF7irbbxu6hhhg hdMjLdBODpMSh0EZi1QHO saWduOiBsZWZ0 PvU9CDF2oVBttW0qqMxrm dsoaF9sHal+QmlydGggRG Y0CAh9F1QtCcl5GQSejEe pEX8wtKDfHDiv Il9azLxzoZgsTH6fPLJbd fjdc496CqGmc1zvDBGuiR KzBTcdKQT1H81fm2F9JWB mNXPnKJQ1hYE1 eZ8iiZdhrxmwgQSphGybi aFfbHvlHVavTJqsZ205JV BpgZvcQoNrNKf6W0KcUuc 5TNAnnHynOZ0w aPEgWYtuHe7dxKaxkMdyG I6tVIHekyhoa809KuHvv4 plBRXpvWImRIpcLFI3N57 cf3F9QQCoDLHh MNA2aCR1pJ5xsBbcjhnbd GVmdDsgdmVydGljYWwtYW kfE500IBCbcGxcPzLtjFi 1K2IqNdl7OREl ePqwQG1irSYlFHwmHq6uj GtfuWfhVP6cJDSlpsepm8 49DeKdy2vfIUJgcHFcJMp aMNJ0I87yw1W7 KHMuQQYhYSP5iYC4zS7mw GlnbjogbGVmdDsgdmVydG maFZwvVHowZ630YVOlgEe nPlBhdGllbnQg LVvbZEc7R4DlMapbdPF+P P43HEOmZP86fIRukAWyr8 kvpZg9BqXdSSAyCFI6qLx eQRyri5MyJWIc H73qgRQjs4U2FFIsuLyit PDrZvOfxIC3iK1mXDfkcz ktk6rbaefpXqyhb9jmdv2 4tS07Z63rIWln ZHRoPSIzMCUiIHZhbGlnb d9vuA2cXe7+IRUvmKG7zL A7xI7hVHQzGvY8JMnzI79 9InRvcCIvPjxj k6src0glmFp4ByM0UAPej aAzqBlgWEU8v9AyXt22E1 9sIHdpZHRoPSIyMCUiIHZ pzJfdik8orY4c Ii8+RAIcwOB4zGV1nC1bD xAcJnY0SWdlU268KmZamD FcYzeaC51pN2YpwPD+PHR oOhw3VIHjqAbz VZ6nvMGzUNdzKy6lATW4L rJjTzDoQUaiP4MbKJDois ryenyzkHF8HAWfOGScuP4 6Mx4ccApdRBYr aMNAmE3xsbjza0pfuqlbO pDhQIFfXKb1BUy6XKYgwT oqImAiOZY1OrO6XKN6rYG pkS7ieHrzfvkd tV3aF8JzAEKwjylsRd54z Z9qKmEhPmR8AStrCpo+U0 LYLRQWMbiqRQVPM9wcLTd RJY76E9TlWob8 WRPpjTluTM2hqHUaFDmqE n9pvYfayNumFE1yKYSdbu vtENFmmA5lICQadCMgeLy yYR8xDKOymmoy r229MfFyZFF6OEFfnOPyH 0OdyA5dVnWxPJGnWJPhI3 RmiBZoXIhoF760XTryKjB 4CZAiwfJhA6Gz XKUhbIvsEoK7g3C5Uu5aT i1jUS7nGYP9YQ20TM51jY Gcy5K4tGV1A5GbDSTmmdf kipzpuEM9FORf VYSgoO80pBTlLZpmPi7ha 1W3c617AZVjJVXfbL47Ga 5jmJvgHCRpxHOTvQ9jhzc np1bmeaffBrPh MLQdBXw1OLa5JWBdpEdnT kZzDDK0RuF5HLJ4qBUxtJ 7zrStqreqawQ6nXwd+NTk aIQDhhvL9R8Gk Clo5GMLgfTogSR2ttVUtS QwvLf9cuNlvmYtcCI3oJF UktazjMBNjuZ4fFZBsyBZ wvPvuUJ7dEDWd stlbr443WaZxFCD2KLMgz RBvG2WbwJ4tHlVrHZScSC HnD9WhwIQdFEzfD525XOp bVtY0GPXuzyRx Z4HlYNAzcVptJiD8s4A4B r8RYAuXRA00LF02uQBqe8 G0uWW2I8IyKJIrknskqhu nwXW0VVLvFCVe iI62kTBdCRugAt2ll4P8n 563WGBpRKGrbC93Sc9klF qxDOAldNJHkZ1uxqklq1u vcjogIzAwMDAw NKp7SFl7ZHRuyVtlVzGxQ EY3SbX7XXZ7mWPriB6wjN nqrnnibG1hLej+H7V3F2M kPjwvdHI+PC90 RPRqCU93eOTbpSRcs3yjl Ll0JwLrOBAcUYJ3mVwhNJ obj2TaGRWtF50lxUKmh6X 6IGNvbGxhcHNl KkAkiNS8aE0wVHzktcpda 7aburnySwzzw6knbu40mE 91P19fIHxwHZCrVXUsOMJ rISJfgUjycw3j mB4rMq8+NXObpSZ2jNF6f V1sKiOzXgE6JLusC262Cw RzxSBgDknph6gmt7apjDv 9IjIwJSIgdmFs yQceFWG9y7UwKy23I91rK HdpZHRoPSIyMCUiIHZhbG dnyg7yxM3gEm0+OC3kb4o ubl75uJ90xCY+ LXWaRZY4sUraDVdrGQWxv A4iHMtvBsY1GENpZgBlfY 15hAYrMJukXq6dbIjcfEi iQA2wAICtdhmh v733RxJuu5zxZDJdjRWvG PnaUJH2O50qg1D8NUBcUJ AhSSS8rNC7oV3uvYxppao gbGVmdDsgdmVy iGlkPVogXXjlC187RDEkh GdlRbFrsTGoT5nfjcXYXG 1lOjwvdGQ+FDRlMND2aJu oKYwwHLWebW8p ITUjE2r0YjJcBrX6HAjqA 3JpjlJ0FOVofHOjAWPwyP MSmT4ybpwnt4xzefvmGwO iFDJhQFh9HBn3 HVWlyQvsHgWoSYJ7BlS2S CC9mZEwbI4ikYsmsjdytR 9wOyc+RklOOjwvdGQ+PHR eZRO4tGasHRvh WRTwgN0iTGNiG7o7AwYsG mT9TNojP1YvvpN5VALxmI VbKBXfaFVBaS8zgweia5u vcjogIzAwMDAw RYr2KHt5XEVvqAooArKqN NT8OgI1YGV7zIEfdD2joG yvswpbdT9gAuz+TVJOOjw vdGQ+PHRkIHN0 oXtpKPsnDGOwmC8xYCLmG 1p9OuFsCfS4FIsvL4Akvi X2DSKmlEAoFGUsmDVSbZ9 pdvypf6cjktsg PuFuLNEyPGr1YYe9BZVrt OjiHvBeQIQ0QsC4MUS5iB UnoT1uzCvxhtxchM3uEsu +OWZ7PCJ2EQ29 FF82B5EbWlnfvVLjpPL+P HRhYmxlIHdpZHRoPScxMD IoTqXnhWcwPN3wXd2wLKJ yLWNvbGxhcHNl OiB (more content not included)... [facility] Wound Care Noteon 07-23-2024 Wound Care Note [id number]#1 [facility] Note [id number]#[place]. [place]on 07-12-2024 Coding Summary HTMLBase 64 EznsbzovLYt4iGv+PGhlY WQ+LK1IUYZcL84rkMSfxH 4oA5JSOHjPXchzLRLCQIx ZCxZyfdLvPN5kmBGbJDCd IC8+IG2rXZJyDgkdkZOij 9T9cAS0X88ayl0tNLzirH C9XCYxXbQgiqvut2oydBq 6IDcuNmluOyBt LUHfvQ40LSJ3pB52Wt56a GTcnCYjj1ozwDx7VeJyLA OoSFH4cAzcMPjjz4WvEVB jV68xfXZvx7G7 WZMkfKujdCRbFzVujHP6d R1oAXrkejjci4khudjhQh e9ug29nURex4M2fGT2W9Y jktB7AFXhuTFp XjctmYVHpK4odjgzq7sei prjFaGdKDDqKLh5KOp1WK WmmDajYwPhPP99LQV2XTX rhjPhK9YvDVOz yUzkNbK1d6L7Gi4ZG7MET aqbC0GSYHKVDQtmnIE+PC 32hr82M1YaSrquSgg9FVM wPNV8cCU7eE2u PWBoKJecs0S8tYU0J7Zsr yChjm5kl1rlZECmNLnhL2 1xjICmc1Y7ZPFgwIW9FRT rtArqWrIkgP93 Oyc+CCZpuKwzh9BiXabch 0wjy0lkrZj4ZuxpKKKufl YmzRhbLIL4u1GySx0wUIB ttCV6uKZ6nJ5l WtBgXvO4HJxkY066WtNps KJpVkkgD45kJ5RmtTX+PH IwUpb4IGJieSxsYK7oF5U hZGRpbmctbGVm hRpiEN4zHYJkzdivERLhg S9hIFGgV1y6LqQkYvQ7YS uzN3IzRDDtnybnSz70jR1 qAlHvKcD0KUki Z4LuvfL7TLZgaUMtLMxgJ SC0P39zo4P1ASMaTPRqRE J7nBW4xZ2slRusuhxdbDX mdDsgdmVydGlj GZijYGudF875NQMrdCiyA kNvZGluZyBEYXRlOiAgMT AvMjQvMjAyNDwvdGQ+PHR jKPB8fUyuFPRb lCGrRQtrIa0yxLhgzFgwQ Z6xSXSbozjxLKHqqM3lYO FcaMDamTkeKI3aGVUyoys iz251RpTgYBJ9 OLRubAMfR8TsbR4yZgMqK MWhLLTdN8UqeXTvSMciD3 75IClwDuW8FTUshpAkG4T sLWFsaWduOiB0 c0A9Sy3Ad9BclapfF4Sip FVaGuIkQfanTXz5X6ZuRy wvdHI+NK18UKHhCZ49QQe 0DDW1aWvsDHwi XGPwB8VllG4pUhJxIZDcG GRkOyc+PHRhYmxlIHdpZH RoPScxMDAlJyBzdHlsZT0 nTe8kASHrOUQd dAesaPAhMbXot7ohJXQdN RfxSJ7wgXqdD0XdjOY3BY Djw2l8Sc77U17fL6BpwRL +VMPseQG7wJL2 tS3cLlTsLmU1FQyrO820J lEtuSQbBywxs7fcd8trbL i1ScQ5WIXkjcNuvKquCBR 7x2MyTo73W00q IHdpZHRoPSIxNSUiIHZhb Wjfzr9cxU4fXt1+PGNvbC G5aJP4sJ5lWnHpKvA9TYy pL181OtCedEKj Xjqvy3jzj9wmrRo8KvRfH YFefwPdcYqiNOR4a8DfCv 95R7VhaBkzr4HqHez2ma8 8lLArs9G3lTA6 N0AsHFPyugkgvLVmbHhhU O5mQEWinoitHMUfgB1qAK DhH6v4WhCtBbZ5OFseH6G epxG2WAJzhDTm EHQjxTFAkL7iouago7cyy mqbNgEeDELhWEg2EJt7CC GtiQdtKmVxNKL1AqD9RWN 2fUMbsG9npNqx mrxruR4gIez+WTS1rTDbs NUMOU5xBjcwfYJ+PHRkIH R9jWqbIVooJMCrmJ7mAIY yB1f0OeRhWiX3 OMezL3BckbR9UNIgrTDkZ QDewBRCgJ7xsswyk5jaog duNgHhQYRyREv1USp2RZO saWduOiBsZWZ0 RhP9NUL8aLEmgO7fhQqsq xiruX9vOqu+QmlydGggRG O8TYf3W9CwVws4KXQzvOh qXL6lvZTdDSya Gy2ubYzqaNdzAX9xYTNtv pdbj005HqPbt2uuQYNllD WjOEuzWDM8X60vf4E0UIE fPOFbGFB5eVE5 bR1hiFbgzwokhPLvkFtai gJgeZufBDviOQzuT395MO MsgImjWnZmCUh6U7GnXca 4KWPtwXrsWL7m mGVpRZfyCy0fcSwohYbxR U0zCPRknydgr426KgWgt4 llBFQgcTZoLFbvBNG5A39 wu4P8WLFnGLPa LVQ2hWH4sX0xoMklkpqqw GVmdDsgdmVydGljYWwtYW duZ506QYXffRdaFqPtlOw 8A8CgOdr2KPWs wPafOA2tgCFbWVtnVp1te OiapQjjMT1uDYNepgzym7 16EkOqj0drUZPkiUNuSKk pVFP3O83na5N3 VXUfUQZbZAN0eFE1bA2yt GlnbjogbGVmdDsgdmVydG dmOEkxCZzcI667CVEqmGw nPlBhdGllbnQg LAlyHTm5L7OjGziouBJ+P G31FDIxXN26fFQpsBRjd2 kmpPq1YpCuIYPmJNS0uVg oNHxup4VcJKNi Z10rmAAgm8I6SJWfbMexj ZAyXxKrlTJ2oP8vEKamaa buq4hdogibKnlud7wbgx5 4vI43R59gVUcw ZHRoPSIzMCUiIHZhbGlnb g4omW4kMz1+LCPucHE9qO K8tE9wQEDrKmS3FPvrF75 9InRvcCIvPjxj k4ttq2zriEp5QoH2CVHju yOwvTyvKED9y5LjRg56T4 9sIHdpZHRoPSIyMCUiIHZ zsUvhqn5qgF7y Ii8+RZNtxNI3cKL8tC5wY lQkFfB4WYutC716MuNnwK WtWvgbS76yM8XenUF+PHR bPlk3BFOweHbf GX2etFTdPFfiEg0cEPN9V wNcIiRkDIszB6MjJELbjx lgiogxpPX2KXSlQBPhqQ5 2Ea7nxJkjJMNd zOPJhQ9hzwylf1tsslzkA mYeAPGbKLn4NIt3FPBmpO bxCyVaZTF4WkD8NKZ2eBB agP0miHlrtaks oA9nP2QdKCZgmjxlUw96u T8zEdPfWgH8PXhdVmv+U0 FQCHGCYonmSDGZC2igGRk CEE76X0QdOeo3 ZVDgyNpoQI8nbCLoPUhiP n5drHaegQwxPE9iFANrsf yiMXIeaF0zCKQimBRjaRh bDT0nAOEswddj s700TrBtIHO1WPIomYTkA 0CpkA5uHrWvLXTkSJTfX9 LanEStKRmuZ466RQyaBqL 6WGZhgzAiS7Vk JMYobAlaTyC5e3I9Pb1mO l0nYS6hYUX7TP51EC61zE Jtd4A7qHK6L5LlOVApibg rfwgorBD1XBVc SKGulL49jEUoIJakTf6mo 4V2x394RXNjOAMwyV42Zw 0dzKyhOSJpeIEBnN3atvq eg4oknfkxUmEm LYSuPHz8PAw2PADvmQzbR vZlLDW6AdP8LHO2mUMndF 7krDhpmiyiiS2bPrb+NTk tXOAvvbF9N9Ms Asj7CSIgqMuwDQ3oaZPzA SogNd4ukEulzQktPF5fGZ FudfctJSYsxL6wTFYxgPT yfJkuQO1nWKQe hqhyy837GiIjDZW1JOCgg BDqJ8IenJ8dUyVmQIIlMH YhY0WnwMBiPPazZ616CDe hBvO8HTZqcuYw H8CwCGIgyUwbRnI3v4P6S d2FTZsHZU73BY23bSDrj7 E0ePT6I8CsOHOtfblnppj tiGA7YESmLYFt pC66zICiDPybFd9qy3P7q 132OENgLKKhsL97Np3zxO noPQGnjGWMwO5lgruqe6c vcjogIzAwMDAw ZJe7FIf2RSGhyJksQsXaK UJ9EuT9VQB4qDYodU2ksC cwrfzfgV7lRwf+T1U9E5B kPjwvdHI+PC90 NSApSS85tMDzcARoa0kvx Ac3JbOpAAKzVWH0gKauPG ash1UaXEAhU65edYKsj6S 6IGNvbGxhcHNl AbRssFN9hQ0lNVbixrhxl 3tvzevsKscpe2pxcn82eI 27D58cSGquZIEnBRZmUDK xVORfcGezet0f bN7bPn7+HEXdsQF1fZL7a N6gSwRzXhH0YHqjF666Id FpfSBbIgbhs6niy0wyoEs 9IjIwJSIgdmFs xYpvZJD8v5VwKe46N08lX HdpZHRoPSIyMCUiIHZhbG cone4esJ2nOf0+SD6ke0a clm61qB84bHF+ VMQdCWY6sLapPLptQMEgx R6zROkqHfH3QMWpXaPiqM 89sEDyTVrwKx9fbAfztHz uWI8aPARoxuzv f610JuSsd0zoVYCsxQHgT QdvXBM2Y52ny0B5YVWwGH DwNWS1nGP5kH9scOyqfux gbGVmdDsgdmVy pAihKValUZtxY780FZBcr JdpUaNqwNBoY1hkmnOQLF 1lOjwvdGQ+XYKzBZR3mVa sIOgwAXLyiN9w MJNnK1y5TiExSuS1SNmnR 2BwdkV3WNWmbMHbRSAquJ QFeI7cbejbr4tqbwgqVvI oEAYmIGg1WKo8 TGOlbDrdUuPsTXM4EuG8X YU1eDVhkJ7lkVsrpqjweA 9wOyc+RklOOjwvdGQ+PHR tZDK8eGzlQBoi HMPdlW5tXNXuO7m6KzEqG fL7AMteU9MwbzN3WYJazH ReDWKxyAHQbT0tkulnr2n vcjogIzAwMDAw ENu5NZp4ITYelBkjQgVuY YN3AbZ0BRB2iCVtyK1lpH zympyfiM2oBhr+TVJOOjw vdGQ+PHRkIHN0 tPukPHvjJWLfpO3nPPOmO 4t5AyQaBsX9YAciW6Dpfz M0ZTZuaXWwXFOzmRJQuL8 risdwo9qajlfr EwMaTHJsYBx7KLp9WSRek WbhMtIkNYX9TyA2QUR6nH SsnZ7fzZjgmjxxlA8wBjw +OVL3IBN9FC28 NV85B1HfAcclwZYfeQV+P HRhYmxlIHdpZHRoPScxMD QqZiRmaMuaWU4iMv2eDNE yLWNvbGxhcHNl OiB (more content not included)... [facility] Coding Summaryon 07-03-2024 Coding Summary HTMLBase 64 WkfsvgqkKFq2nAp+PGhlY WQ+NZ1EZOYiZ82kmMWuoB 6mY8SPFHbHWgbaDFVRALg HBcCqxcRbLT9goWGwFGOm IC8+IG8rMYNxIgjjkHKok 9S4xQP4Q62tdn8kOMapoU H5MAHpXxEkkhsxx7ywoLx 6IDcuNmluOyBt BLIzaA18BAY9rY61Bt44y CEwhXAhd2ykpMn9TgPgGS PdSSD0nCbdVKbfl0VlRNZ kY80mbDElg2J1 LHUvlAtvtBHcFqFxsOD1c H2kXPrywoktd1qrlaafPi w3ke61qPGiu7M4jIE5I6E qmkS6SZBfbSVz BehrgYUZoG9ztxgkv3bti zpqDqYeVLOtOZa3KTf1RR YfuGrcPlLaAT64FVO7ACE copIjK9AnFPUg cHjiYtV5s2Y2Ze8SM3CYJ rcjG4SNOIAHKKjhxCQ+PC 49kb27D6TyOejtWtc3ALI uPMQ8fAA4uZ4l KEKtSFrhp0W4pAL4O3Qiu aZcwe8ci7wpTSKlFKctL1 0llSBxq0N0EVAtpOZ6VKK fpTbrAwXfrJ94 Oyc+NDSomOvww0FnUquoa 0hkg4hsrPo3OwqkDBWaxr BjhIcjQFL9t5GnCt0bVCY lfKX8pPS9rI4o JgTuOhJ2OVzgY753QfBuk VIvLlutD17nH2OrpPX+PH ZlWjl3YGRejSdfRM0kE8F hZGRpbmctbGVm jSzvTG4pRJXsanzuRISdc E5iVPPyX5f6YqLgShK8ML pzA5LxMPKniifeFx58fJ6 vLuAwGpD6GBqz V6YzdrO8HFKkrDXxKFwlR LO3D88ns6M0ZTDrMLQwTJ P5nNE9kI3qsVshioylwOY mdDsgdmVydGlj RAkkJOceC278IQCivAojS kNvZGluZyBEYXRlOiAgMT AvMTUvMjAyNDwvdGQ+PHR qIFV2yXnwFASg nCCwEThfJu9kfWjggFguZ F3mDRXthctgTXUhwU2sKL UumKRbeOkfUL5rEAHhhwh vq591QeJkYRS4 GRLexMQsO3DnyS1xJvIhY CPpJWCqC7XdbGOwRCetW9 85PTtjQgD3CQSsjmMyX5X sLWFsaWduOiB0 e3R3Ur2Nd1XlxgmgX2Wcy UVhUwVqJjizBAv8P1LwGj wvdHI+FJ41QBFlSM66HMc 4GVI4wJecBYmc TTUoN1BniG8hHiExFDWeV GRkOyc+PHRhYmxlIHdpZH RoPScxMDAlJyBzdHlsZT0 gCz2hSMHbLZNl lVgpzPNmRfZjb9feGNTgQ XzfTR8bxDdqU3EvrOF7WX Pmw3b6Ob90S65hB5VmzNC +AMOmcNV9iZG7 zQ7aZxSzLpY7XMouO585U ePchTJjQfemw4scv7svyK v2KoJ6YUBbyyLgsHgxPAG 6s4FaYh27C77e IHdpZHRoPSIxNSUiIHZhb Mpdce3ctP5kFv1+PGNvbC P4uGH8cD1rGpMxJfV1RJb zK706HfKxcPYq Kcuap3zwh7mddZm2JhOkL LCurbKwaLsvSLJ7z9TaRw 35E7DjiDsit4IxNkq0lw3 0lIWol8G5nTP8 T0HiYYTuvbjicUWjdPrbR Z6wUGCbrellCZFfsB6iYM XuQ7b1PgEqBgT1PGfjY1F edcO6WOHukKJp KIGztKHZuE4beuitd8vzy teiSuXdLNIcKSq8CPy7NJ NwhXmdWqJnOTB0ReP7OVF 6zLTcgO3uoDhp cliokE3dDzi+ZMN2eTUka TSIBQ5tWijhnZV+PHRkIH A3cOsyKSmjGONwxZ9fYRX iB9n8ErGgRtQ3 FGdvU6GuswR9SYWlmJHvH KQssCBYgO8xctzfg3eqel gdFrSkMRGpZXy8VQa9FOS saWduOiBsZWZ0 CcK6JKL6dSYwsO5gxXapu tpgxW9zWnn+QmlydGggRG F1JNh5D2KuDmi8ULSpsEp zEN8nlXVtDAug Ee3hxKgptPtdSU1cMOMbp weln313WjRny4keZERqsH NnWLvdFPY1P10bz6Y9DAN qNSUdPEW3sIB7 uT1obHgaimixzSOjyRhrn dWdmVsjPGgfFLiyE222YN ZwmYtmGxZmGLm8M2JyHuq 8YNHvhIxfHE8h bBFoZEwsJk7vmQngoWsrD D9xBZBrqewtp843VwKwd2 faLMGzmBPqSYftFGO5Y83 sq5W9RAErHRLv LXU2lCD1tS2qhAfrcgtov GVmdDsgdmVydGljYWwtYW tfE857JRYbmArsGdLviXz 7Q0VjUwg3VVPm jOdzQP9zhYNaCPniNw7rq UxtdScnCB6bFLPxfjpdf5 13NiPya7zkTEAodDWqROw zMIB2T92aa1B7 ZQOwBAQuZZM2yDE7oT8tq GlnbjogbGVmdDsgdmVydG gmFGkiYRupP646MSLgmEk nPlBhdGllbnQg CXvlXEg7J7AbSgynnWB+P J24DQDoKR46kJYwtAWce3 qnyTe3BrUpFZNvKGX2uKx sIOutz5XtOVKf C27uxBIlj4G9JYCbyTjoh KDyWgXxlYK5wL0cTKcbye ane8qtvwvgOehqh6vzsz0 9oV27I92aSVxr ZHRoPSIzMCUiIHZhbGlnb r4epF6dOz3+TNKjjHQ7hM K6qC3oFFMrJoA9NZuvX94 9InRvcCIvPjxj u4qzf3xyvLh5TfZ4BLLjl aQceFamLNZ3t7CiPy92Q9 9sIHdpZHRoPSIyMCUiIHZ gxKqkeo8xgM7x Ii8+ELOgzPF6nNW7kZ8kB pHeIuU7SLagU299EgHgrR OgFxfoW86aS7VufDB+PHR aJak3BGNpoWag SE5uaYFsGFmrEi4yLAF3T pSeXhCzGYobQ5EwBRWvct lyuuagvXN7KGJuINYpiL0 9Je3dcAbdRHAl kJPXzV3regvpg3wflugtI kOyNYWoADi3IGe1NXQsxL guTmSmGKO0TaK7KWQ8oIM zoN6adRhxecmq eS2tM3EzZJLpgusrUs56x V2iLdOfUcW3OLyaEwp+U0 FILIUMRaghWNLNA0rmBYx VUH24H4YcAwj3 QLVntRgmBQ7hpONvARaqT b8fkMxdmYarIH1yISTzzz kaRJCsoN5oUYUdnTAzoBx oZT0zWVDzngjh z931QbOiDBU5XYPwsLPgO 9IoiW6mLzNcYLXgGSWmM4 XyaZGgNVnaZ634ZOswAyS 4OQGaprRwX4We AFGpuQstWkT3h7R7Ai8xX f7iSN6yUTV4PB53RW57nU Xry4H9pZN3Z0HjQESfgli qkwyopSB9KPLl VIVyeP66tTJdSLrqPq4cj 0A4r515SCIbFVRlqN73Dx 1gfMcsFVGssSNAwE1ujep xo0beodcbVoLt VCWyMLi6WJl3OJUfdMyfR cIyVPZ9IwS4NHK3wMRloY 0yjUfiuragyZ9gUiw+NTk aPZBnuiJ9M1Sm Wjy1RLYxsYhiVO7dfBJaF YejIp2imAoakRcpOG6jTI TshmbpMWRmkI9vLXEkcHU yrJrnMF4xIRYt ywgxo166NmBxJKY8BQTtm UJwC7OrbQ4qImAwLSDqMS LhK7XnaGKvPKgmW396HAa fWpD9IKTidaOs U9IzRQDdxHrpOcS1d8W3W j5GBPbQXT30NR92aPPsn1 F3tGH6Z8DtFPAfngzujfj icYE0ONZfINEr dX16nVGlZIteDk4vp9O2e 135WSQqEIGnrJ19Eb7mkR jfQMPtrXUFbC3mtqwle7j vcjogIzAwMDAw FAj6ZDh2CSMfiGciBdGsT OD9OrL6KWU6dFLwzY4jgT amkjldhW2lCjv+Y3F7N1P kPjwvdHI+PC90 MYEyTI19fJDwdGYgu5rhf Ka5JnSjNTBhHPG7rNkjWL hrd1VcLZTiD07gyYYoj2V 6IGNvbGxhcHNl QkRzzXS1tM0kEEhmuvnsg 8epmwsaDfijz2vmqt68lT 42D29eZLkxMYWyPDLtWCR tKUErhYvxow1i xU2aQy7+QVBfgWW2iCS9l X7dCbFwXoU2NAjmH348Oz IijOXgBxyfy6voy1bwoQp 9IjIwJSIgdmFs kUjhVUX9v6OgBq96K84tA HdpZHRoPSIyMCUiIHZhbG crlu6kwY7nKt6+NE3as0o nml21iL94iQL+ MJMiOYE7cBawQDdfLFGrw L1bXPvaUcZ2OKUrZmShnG 47nZEySHjlWf3awDawgUd uGN0aRWGsmnzh v176SvYkz2cjPJAzpOQlJ EifOFY6B83qs7L7AYDqAP BqPXJ1jYB5rD6idDpmaft gbGVmdDsgdmVy aYgwHUbxWBkeG037XUDis RalHcFnbSRaW8raibNFRX 1lOjwvdGQ+HXFwMGY8lKw gZTuoUJHfpV1k UYTyU2s7FaMsQqC1FStdV 0AyxeN7JNJirEBvILHrwP TEyE8dcwcdi5etjjquRnI kDORxONs1IFk0 LUUvpAhpThDdSVJ8FvL1A NQ7cLDvyE5vyIziipxsrH 9wOyc+RklOOjwvdGQ+PHR xQMA4vCfkAOju QKHgvW0iIXBeT0h0KeEtS xT0BPbyL4VpeoD6DIOkwW MsPUWclVMPtZ9ieabkb5i vcjogIzAwMDAw BDf1UOc8PAZowSzhUfDkI XZ4RxH0YZQ3jFNhiI6mtK xklymovW4kTgc+TVJOOjw vdGQ+PHRkIHN0 bSawHGmtGIJpuK3zBPCbP 7h2BpTeCsU8QBgnS3Nwff K3ICPkaGHnRLBhsSDIiB4 pimfni9bavkqf DcEbDFInAXa9UZc4NQGjm LdcNrNlOVH2PkA2HLE0hL JilG3oiCsqmdndiW6wCgh +MWV2MDJ1WM15 OS92I5CiRgwuoCGjmIA+P HRhYmxlIHdpZHRoPScxMD UnDgIlqKvgEP1fQh4mYHV yLWNvbGxhcHNl OiB (more content not included)... [facility] Wound Care Noteon 07-02-2024 Wound Care Note [id number]#1. 00OTGTIFF [facility] Coding Summaryon 06-28-2024 Coding Summary HTMLBase 64 RxthwrrdXNu0qMh+PGhlY WQ+OI8ENCVnP50fpPJhzN 4mM7BKKXwXQydnITIOHRo XMmWofzAsJK5zsNSxTBKx IC8+YK9dHWPcHrtleGPqf 1U3iSD7Y21iro7kEAxxhP P0RYWaXfOgvcmlz4vctAd 6IDcuNmluOyBt JDQthK15NLV3vV74Sc29g YDgqDUch0wxeLo0LgBvPM DrRTK0fBlcVXfjx0FuXHG tK67mySDuu9I5 JEHisEvznDPkYzRhjCA0k F7qSSbbttotx0bwijgeVq w6rg32tMXcf5Q1wMO8D1E qcoC9YNWsmLFx AbnqvBHUvG1eiitvb6jhh ejsIfEiDCBpNIw1OOy5DI UvjUwnRjNhOX37YID9FPX cdeJsH2HcFOWi fMedKyA5s9L9Dl0SX8RTD hwrV4CQNKCXZBsluIS+PC 87rp59U0UbJkbpWgk7MCB mEMZ1jYL3lE4h TWFnHKhwc6A4wNP2T2Foy hRyop4qd2jjFFCwZVomS1 9btVAlc1G3DBVesSR4RVG uyKrmJrRgoM88 Oyc+YFWwwWyms6VyLwlwu 6uob2vivOs0NobiYNWrnz WkhTyvIFM3a5HgIs9aALH foQV4gHF9kB6k NpDzVwJ1HXiiZ253OiJdh CCjBhnjE45gO7QjiUU+PH AmYdv4MDMqeKhcLU7pN7E hZGRpbmctbGVm vGrsPO1eEEQfrauuSMFzb Z7aDYFwC1c2RyKdGbF8LH slW6HhTQPqckakOb61aX4 yMrHqNxZ7NTph T4CluvO2VEKemUTvUJjyL TZ1L26oo8A3WTElRHFrDO M1hZF6dI0iuKvtynmvnMQ mdDsgdmVydGlj XCpuSFmnG817ACQnrQsaL kNvZGluZyBEYXRlOiAgMT AvMTAvMjAyNDwvdGQ+PHR bKQG6jCvrNRZy fUQvZGhcLh6mnDsyuDemZ P7oHCWrjcgwHXWbtO6fEX CgiIPopOvfCR4oXWZxigu wu187NwSaDIX0 QMXpeASlN7JxoE1dHwWcO QTwRRHxH0KrtAGsROmmS8 11QIznGkV0PDMtjuQtR9L sLWFsaWduOiB0 l4V7Nu8Kv1MzfhxmK0Rwp DZvXuCdKqoaESs3Z2BnRr wvdHI+QI63CXPsBR41IQb 9SZT4bYwlCIxq RCZpP7PqzQ8eBlGuBGKtH GRkOyc+PHRhYmxlIHdpZH RoPScxMDAlJyBzdHlsZT0 vSg9hHSLkCNNx hFsozAZgCbUvd3ukAMXfY BscNJ6ooJrlY9QmsJN6YK Hip6q3Ln88O51iQ4DvfRF +VDZqmIO0uTJ6 vB7rCsKmAdH4IBpqA098W gNutRDvSawlt1ptj7scvT z3TdL1YMDdjjVvcBkzHMX 2q5AeQm86P78w IHdpZHRoPSIxNSUiIHZhb Azdwh9jqE0cZt3+PGNvbC E4gGO3xA8jQkHlSqF2HCp bV032TjSjmQFe Ltvjf6mfy0wspNy9IySyG XBnkyCvjPjsHLO8a3MiAy 35Q4GjeEshs5GoFau3vb2 9zFKqx4R2lFH6 Z9ToYAKxokgkmGAteBzaR O2qOWUpwgdzHWYoiZ3bOP SuQ1j4IxJnLtN3IPesO0R sgiD6YNYqtPSq RMTnxNKMdI2cyxsqz5qbc heyMgSoRGOuYKd8KSh1UQ KctLweIrKeRXK5VfH0WOI 2vEGbqP3hpCtu iyzoqZ0wJvd+IRW2sVPlp BWGHL1sTvlerGB+PHRkIH X5rYlbHOlpYKDqpS6hSXA oE8a5QyBlDpO9 ZQfkW9OzicL6LDAhnEOkB HQxfGDHkX7gjhccz1nimq ozNaCkCTPwZIl8SWk0ZYK saWduOiBsZWZ0 QiG6MNQ1hZDzuV9edZgzw kuehQ1aEjx+QmlydGggRG G2TVj5J2HqDpj7JAEuyRh sHV4xgIKkGCvq Zx4taTjvaNjuKD8rWLNgh mmox180SvYqa4tnLMGqmP SsZOrwWHK7Y78ut6Q8XPS jLYThKLZ7aBT9 rW6pjWdsgpxgySGwiIbgf rQjpEwkTLygQRxsI073VM DubMwpJeJsCTy5T5PkQtx 7INFweNvbTR6e jRAoHKwaNm1ytOxxuVqbJ I2uORAqcikuz064VuCgg5 hsYJIfhWDhCMjiMTD3A86 yg8S6EVGpKGXy CAG2eNU6hT8dgIvrtxbtc GVmdDsgdmVydGljYWwtYW yjG812EEMakSuxTsMllGh 9L0NhIcm7SCUl eMvaJY7sfKZtXBclGh5fw EeoeGkrLY2oZWPttgzub8 54RbIca2iuAESilIZtXLs pEAM1A69ch4B3 DAPrRECxHIH4yXE2sO4nz GlnbjogbGVmdDsgdmVydG wtYEevPUkxF827AJVzvYn nPlBhdGllbnQg FYlwXOx0R4DwIcafwWD+P L46KUWuVU70hXEvsRLwe0 ljwVt0GlUqARSfYEZ3pMl oZTvrk5VdIUUh W40ztFWuw6Z1XOXmwJxgk FHdIuSlpRK0kZ0fPRjaot udn7rqtfjmRyykb3rthk9 5wM95W90zVIkw ZHRoPSIzMCUiIHZhbGlnb x9fkH5iXz7+GHMogQX1wQ N1xK7oQAFyLlK1YJqsI77 9InRvcCIvPjxj t2fsw9aqoTr5LoF3HXHrf uLjcMtpSMA2u2HjFn54C9 9sIHdpZHRoPSIyMCUiIHZ eiFssrf9ynQ3r Ii8+KOWdyQT2qXB1rN6uA sYqTxD0JZvkE871FdNczU CeJrlsX67eD3CxtWR+PHR jUte8BXXvxWtw ZJ1llJZyNTcxQc5aDZF3Q rKeQcGpRKhsQ9ErPNUpzq ykpoffbJH1PCEjFGOmgC6 1Sj0ciRawGSQr gHLSxM4fzvhsz5pgbieoB jClMXDaRQu6BIw5UQPkkQ jrPhXsDPH0ShD8DWJ6dWN leL3faNshqdpo hY8iX1XiIQUxvtnaNu82y C1oMeVvOkJ7ZLwbYfk+U0 GCCOVPUhqrSVVPC2xoVDi QUB76O7SkTmf2 GXTprZmkFJ6iqOUiFIwbK n5yxGqjnNxjFS8jTFNatm yoGXAwrM3qMSSeiSAcaMz bGB3vSKWighkw n446IkOwWSN7OSTtsMRpK 3ZmsE7jUcZnONCcRNSzU9 IaiCTmQOmbC317EVpzIqG 0TQHgzpYjO8Yv AVDpcDmdAqD2o1L5Ey3tB b5lZH5hUTS8KT54ZC01aH Vgw4X3mVF4V9PsGMXxhwy tdsbojFH6CKYr TTGuhE64gYAjLXdpKd3yi 0W9u844ZXYsFVIerP45Ke 2htNchQVPbtCLRkC3unfw gk0yfcnzdByHr VLIcXEb2OVg0KMOzbOxfA hKyGTK7FbX1NHU6rRUniB 7gmJgfdciloC9aAqb+NTk hQJCsimJ0M9Ir Rxz5ODQlvHcvTY2dhDZpC GopMe5oqMrwvIyxDC4jEZ XzigcfILJgfR3jEXEvtFD mfZfkEN0zISZy ezkkw926UuDtDXZ6FNGzs LIbI9QtcI1yHxGxKBSdRE SoY0DrtQSqBXbjB846VRq rYeH1LPTgmzEs P3YlFCNthNxyWvP8p4Q6R q2SIHnRBC24WK25xVQlh1 L2qUE2M0SqVIVgyudydpu exQQ8AYCdESIi bK43hZQmXClpDf0nr5R1s 097UDZzLIDgnI10Mr2tvQ dpRYYhbQGQxL8camjoy4l vcjogIzAwMDAw CMp6OUj2MTIhxKsyXuLbT JZ4JqJ4VEB5rALqhD9laD pkvowgbX2wHve+QJ8rfjm bghZ2LS75GC91 G9CqZbzsvWLqkPG+PHRhY mxlIHdpZHRoPScxMDAlJy UxuHhuAZ0nMp0dWPNpUBE vbGxhcHNlOiBj p1uzMWAeGZooNJ1ccBshZ 3ObjAV7GNQam5r6Bl83O7 9oW6CgsNP+SXFoyCO9aZW 7yO8rLtUtAlT4 NDobH411ZtObvNNgXmcyo 4zgq2jqlPe6AtMcRYSofa XegTalXUO2c3GuOs50B22 sIHdpZHRoPSIy SZDcWYXokBdgta9wgS1tH i8+WETxeQQ3uMP8hF1cKa RdBwN2HJbaO887SnUcsWW eReyxX84pN7Vw dXA+IAHsZgr7ERPdhBidX I9jaKSdRWlnIs4dXGT0Pu OzTpJfBUtxS8NdLVUajiz byasqpZE7XLLf ZHVfzX67Cf6osIhpJr2hC RXiVEU1DXXhbTKzI6DabQ 6mJtBbMTErFPFmZ9GjqFP fYBfpM635EFke TmN9GGXhxuVoF3LfUMXaj JmvFvF2w7P0Op7AcUhicS GnMQ6bIiRiPAh7V0DzWph 5RVZdrAvrEJ4g oSQcWTurVg2zeOlzoObyD H8zPLFjapudd674BaLrr0 rpXFFjyQKnYYybRPQ4P23 je0G5DRFsDSRf OUR3xFJ9mO7mpJbajcgpj GVmdDsgdmVydGljYWwtYW shK846WUGheIaaDwPVEvq 5U9WiOoj5OEYs cRejTP0ioKGiKObmLl0bw HrhqQruDB6lBLUrdlmoh8 45AkJcw4irCGQpgAPoDGu aGMK9L42kt1R1 UOObMFDqIMV5bLL5iW7kf GlnbjogbGVmdDsgdmVydG npEAerZOsuD356XFDnrJo wBb9KLsy7P2Xc Hdn2OENisSgmTR2dbXKyD SmkOg0skAnhsFzwMN3vPX Fhvswfc622KnDaz2luWOM wcHQgVGltZXM7 S78dd6J9UCTpBPImOFE5m HE4vZ9yfDkorxqofSXlmE ftegAwkNmhGNnnBEioY71 6IHRvcDsnPlBh eWVyOjwvdGQ+JV16sf17W 8QbUklfJdl0ZLKbTJA2iK N5tB8kJKMmFLvqz1R9tKW 3I8WokkIrbw0q b2x (more content not included)... 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 Thanks. [Electronically Signed on: 07/04/2024 08:25 EDT] Kimberly Jones MD [Verified on: 07/04/2024 08:25 EDT] Kimberly Jones MD [Transcribed on: 06/26/2024 11:45 EDT] [facility] Coding Summaryon 06-25-2024 Coding Summary HTMLBase 64 VwuytzghMVb0gGu+PGhlY WQ+RB9VEFYuP99doETmiD 7fH6JYEFwEJmhuXTJACLr AEhRlgePzRV6djHJxXSEp IC8+AO6fUNKkDhxjcAMsr 7M8fCR4X06ack8dEYpsdN P3MEJfJaIutogso2xlaNn 6IDcuNmluOyBt HNBpcV42BMO0wT69Lb63z HLyzVMhg5ixoYp4IgOnBL AwBJX4wYbyCZipb3KnTWY hL00xhWVdy2J1 OAPhjLtgoXUlOgIomAU8v X9aKAeoznhvk2xjrpquGr m3yk95hGPae4S8kOY8Y4I rngX2RGSvyWVf DvrbzEKPlU2seorqu4zgh uhqIlOlVYRbEHh5KCa4JQ EjaNgvUjPjFI14DBV0JUQ zcfYqY2GfMONu hNjlMnP2v2B3Dj8FF1MNA wesP5CHSSOCBKrlfHH+PC 43fj60W7KqWhxtYuh4JKT uLNB8nGH7hK4w BCVeKLmzn9G4cMW9N3Sfc wZxpt7ok0ppELLjCYobG6 0yoIMyi1B8RQZvqXL1YRB vjChwOzBwyV70 Oyc+VXVsoVayq8KgNltue 8fzr0sirAk9MbvqNRAbnk XhoNecARZ1q0JmBt5oNAH kcNM4aQQ5xX5u KeWcUcP0LAovX971FxUbe LNvJwozD45yW0JviYA+PH JhYqn6EZHyyQjfVG3kP1L hZGRpbmctbGVm kUyzDP8cAJXasqnlSFIyo H0aPPCzP5n0KgErLwI8IW tvZ6InJEWnmwixOk44cC9 bFoByQyP7NFpb J6EykeB6COKweRQlUSydP TU5M42xu4X9NPAuFZIkND J8dKD3qG0dcOygrfzemXP mdDsgdmVydGlj KFjtUBebE895VDKnqXndD kNvZGluZyBEYXRlOiAgMT AvMDcvMjAyNDwvdGQ+PHR yNFG8oMqaOCHe lSXfPAyrDo9plAmfgUigC Z8vCUYkniwcXKTyyP5tKN GdnYSkwBaoLR3tGJRxhyw xy025KeFcCWK2 ZNLcpBFdV7ThzD5vLhTaM FKeTJUwB7YzpIOjFAkoG6 43TDsdFdK9HVJssqCuA9B sLWFsaWduOiB0 m0U5Oc8Ar5EthcxpW6Xtc HAnJbEpRvxvKMh9L1UfFm wvdHI+YT04TUQlIU11GGq 3HMO7rDxuQKmg OTTeF0XusP6fMxJwEOEvJ GRkOyc+PHRhYmxlIHdpZH RoPScxMDAlJyBzdHlsZT0 sUb9jUDTeQBOz qCnlqGKoNyNnz0dsVVUeT VihWV8dxVgqV0EyuRR3TE Csp5g1In03L68qB5BlyXC +VYXkvMJ7mUJ3 gA6hXnEpOxF4ONdsD469F mLvkLJlPcvec8oqq6pbvW n0HuX8ZJBhqiBjvOqsJER 1r9JiKu57A82t IHdpZHRoPSIxNSUiIHZhb Cgeap0ndJ5vNs1+PGNvbC X9eSV8lF7wXpQdYtI8WYu eZ990DzXrsIVe Ozbhi2taa8mzwJy7AbEaO SHjtfHniIpbBLM9s2FeOz 17N8MksKsta4PkLhx1kl8 0rRHqn5U7dJL8 G4SxMBGhzloomMGrzBtdM Z5oALSjhqrtHYRcwN0nZE MyI6h6FkUuJcS3JHzhA9R mljE1ERVjqQBp KKFmzOGVlC5hqkvyz8ffz zrzOuJdXPLvSHr6DSo8OL SwiXzyGjHtOFH4AdI7EFR 8gJRybN6npZck rzmueS9iMxb+IBI7oUJtw TSVUL5yVkldxCC+PHRkIH G1rOjoOXwlMWObvF2vSSJ sB2h7YxZrNgA2 HNxrH8RzlaQ2QNIjeVNjI BWmoGFRiK1tthlhi3kwkk xwAgEkYZHcMIb4JCl5NNQ saWduOiBsZWZ0 DzS3BQB3sYAvoA3ycJqum qfiaE3jCjn+QmlydGggRG H5LSm6R2BaXnb2ZEDlpPj zOY6hnCIzYOqv Ri6xbZebdHrsJM6lTQXei kgci126LzYfl6yuNTAhkN MtDSzfKNT0S70ek6Q1FCJ zHVRjUHO6vFQ4 iQ6mqQqoormndJJpdPcrv aNjbVkbXTclBPokK042EP SmgDlpVwQkEUe5Z6MeVnu 9PQUiiDwvGY0t kUZyKFbaFq5ebJlygMsuV D6bSOYucnglb582FuZro0 dlNTMujNIbXGccSEH7L24 xb0E2THYiSPVy UDM8pXA5gX5ghMmeczzer GVmdDsgdmVydGljYWwtYW qqN475JRUrxKupCjGhsHw 3R3TkSny9UORt gOrbBE3tcPSwDIwbBj5ae WbcnTrzPS6aMQQydvxat9 90LnPep7zsMZYazMNtJDm vSCO7C51tp3N6 BTNmYLWdDCU6sKJ9fK9vx GlnbjogbGVmdDsgdmVydG xyPKscTIwvY803WFIwvVq nPlBhdGllbnQg VBfvXNr2C5ZnJmgljFU+P Z37CUGjZT89sGBzsYVpa7 ufwKh7GuZlMSMmVGI5tCm pUOwsp4TiBJHi J71sxONel7F7LROdaUwvv FStUlUlyAU6qV0xNNbleu jkn5sgarakMihdz7tcct0 0fF72V79eMYiu ZHRoPSIzMCUiIHZhbGlnb s0wsC0aCc5+GOMhfSQ9gN M0fV2mURRaRcK9PAvzK45 9InRvcCIvPjxj m8pwp1emuMx8KhB2WRTau xNzbCjpRXL5r3RtHw84S2 9sIHdpZHRoPSIyMCUiIHZ hoJmurc3jiB7x Ii8+JLLdoLZ3jXB7pN2nN tPgCxE0FHdpJ782XgGeqI ZgAqzpG46wS5LatYM+PHR bGwy8QRXgfYad OQ6bmKBaSZihXt4tLXI6Y iIcDoTqROphU3HrKRQhkv dqoclpnXU7CWTlUIBagB1 3Yk7lmObpNSBr kLURrC4wfldup8tmcqdoH dGlTGHcWCn8DJw8UEAqjR zrNoCfAVM2VuV8JYL4wMX ieZ8ohNkhlmnc vK8yV0RmDYHnwvlnQd84g M2dJwFfJgU6IElxEgp+U0 WKCXCRRytjVBUHW4saVSv ISH02O7XwOwt4 FQNysEljAF4hrUCpNYiaM j2fgIatwOxjDL7hUOFrul seZQEvrI9yLFXjvXHlpDy aQF9lYDBxijpu o034HxLiTZL4JUEpsLLmG 3UcxO1eCiNjOEWnARMjH8 GyyMPeYKsxG171BLvwDvT 8TTZvlkRvV8Fn OXMlvVhcOkP0w8T9Ml4fT t0xFK7uFIN6WD35ER22sW Doe1D7vYG9A7LaVNClxos ingowyGS1HEPu QRZmlG14kEDqBJmhIw0td 1Z8l389SEFjOZWtfN83Yd 9aoTesYQIrpESQjW4zgee dr9qhgdoyGmCk GSBpNGz4ZJg0PHDimPwaZ oHwIFM3FqE7DIW3gULuiP 5vkWpgizyglU4hVry+NTk cQYYbmeO5G2Zz Hfn7QEGmbKmyDG1eiGDtT UmoPv3mrYxatNnkJY5uEO VhyzhvMENlbZ9xXEWuwQF tjOfoYQ4zOTHe hnoul533OtTuBPU1FCJcg ZGiV8EybO2eSwWfZEYiGZ IvF2DbaQZnNMcwD762SHh iUdI1AEQfyvTm Y5PwSVPhsDppVoK1r2M5B k9IEZeMPF42XO46pQWtg4 U8jLL5Q1RcBTGtjxyjblr skQH3UHRjRVQg uK36tBJfJCezMe1wj4C7m 104PPBrDWVfxK18Or3ebC nfZGXrzFIKoG1mcidwn5j vcjogIzAwMDAw LCz0EJb7EGVwpJzhLhCpS MX4LzL6PEE8yOTjuJ6ceG wvfwwvhI8xWeq+K7I5Y4M kPjwvdHI+PC90 FGQiJR77tQOjoYRkt4ohu Mo7PtWrEJWfXUT7qIgzLK yzx3HiIEGiO92rqFMlv6M 6IGNvbGxhcHNl KqEycDC8vC5wBJztuuual 6gaqmfyZxeok3lywp43mN 50A76jRImdGFKjALWkOBM vXJLzsLwbqa1l fX1pBc9+OAIwzNM9kKP7v B5gFdGpViH5BXfdR200Cr ZuaPBfSvhaf5stl9owkHq 9IjIwJSIgdmFs lVetMFS0k1VkRy06B47wS HdpZHRoPSIyMCUiIHZhbG tszk5qlV3iLw5+OC8xp6e toh06pU05oLW+ ORVjTXO2xOlfFKqhNMYzs G9qOIulYkX6OQNuRxCshO 60wCReUAjxMa1byObtqYb mJZ1kKPTdvnqn t149XvBpn0leRJKhqDLxF NfgHUQ7D09aq9O3JTIvBN XsZOF9yWT7jV1ijOaeamk gbGVmdDsgdmVy fKsdTLpxMEdaQ523MNRlt LjnSqNlyFXkK0etcdRYXX 1lOjwvdGQ+ARItJTD6bVp iIUkpDHDdkC8p QZLxR8t7SvLtDzN4YNhzE 6NljmX4CZAtsTZsRVLocJ EWtR1uwgnlj8rkdmzuEsF jIRPmYTq1KGq3 KLErvFspUyWiHOZ8KnF0U BX2oYFfuX0qcXdvyssarM 9wOyc+RklOOjwvdGQ+PHR rYEE2uLtfBDvw DRRtbE3qQWDeZ3i2OmYyN lG8YSsiB7FidwS8XUUwgZ BxWBQxyWOLxL4jitlaw8i vcjogIzAwMDAw FCd1FUq6LPDvcUqrVjIrY XK5SdT4FKE5wFOwbP6wsS zphjdweE1cUep+TVJOOjw vdGQ+PHRkIHN0 gOqdIUluOVQxlO7sPSFcW 6b0TuRsNlG7MOorV4Ungj T3DTWwrQWcUSSxiXMAwH8 jnlcvp7fsntvw CeTuZQYcVNi9TFv5XVTft DaaYaAaAAK0IvC6ELP3qF PxvZ9ukCigbajexM7rLru +CNZ0IFN3DY86 XX97I1JzApxykQZhdTQ+P HRhYmxlIHdpZHRoPScxMD KsRbUibYkaFU3lAq2oPXE yLWNvbGxhcHNl OiB (more content not included)... [facility] Coding Summaryon 06-14-2024 Coding Summary HTMLBase 64 UynjmccbZNl0qIi+PGhlY WQ+YZ7KOTEiX91unYBkyL 9fS4TOZKsEWasqKCULOAl SLcUhomKkED3paZDjJIWh IC8+MD9eDRRkEjzxvPCrx 9T3aUA6Y14vxl8eCKugaG D0TUEmErAwqcfcu6pqcDy 6IDcuNmluOyBt OKIyuT23PQT7fO79Hf50g NVplKReu7lxfCn3YiWsEF YjNUV2xXqpOYhcb5DdJBU xG09iwQSsh9Y8 PJSheAomhFMbKjMdpEC5d S5wKJeeqybha7eaoomlOp v5ft88vCYfj0I2bBI3I5B bckJ3DTQnjLQa QuwkwVTDrE4uymiuh4lbp zrnCpBsPVLxWLn7CHv7GM LmlFvuAbLzAU23GSW5XYY srmThR7NnMXNu yNibSqX4w7Z4Nw8VZ4XSA byoD2YRFUOLWFjwxKA+PC 74rk03L3RaAboxBix9CXM zBUW6jVY9tH9g AKFpDTwis8J4gBY7U5Ttq vAxzk7cf8koHCRqWEdsY2 7lpMAay3K2BBMqqWI6TUT esTkqJsLzpS56 Oyc+HUUdrTkrr9HsBbxin 9mol0gdnSq9YcvqZJGcfm UbdJmoKRN0n4NbBj2iYPY ejJV1iKB1dC6u DxLsCeS1HRoaD247NbJke YZdGbmrT29qO1XqcVG+PH LqVum1COHshTraNK9dX0Y hZGRpbmctbGVm nSbnAM9qHSPemjfaICObg V8mVQFaC1d7DiAsInA7VP dpD0AdWBSumqkzSy92dF7 uXiJjQhN8PXbs G1PyxdA5TBCgcCHwAJqrM GU5T20sq4P6PRQoKUFhMZ E8vAV4hQ3ptHniubxceQL mdDsgdmVydGlj NJgoPNvfK611GSYkhTboC kNvZGluZyBEYXRlOiAgMD kvMjYvMjAyNDwvdGQ+PHR mSNX1cXyyIHAd cPWyFLsxWf9vmZpheRriT D4dNDMdbiclTFKzrD1sCE DkdQFhuLbnRD4uRPPhmyp cf268WvCpFYF0 EXCzoHQcH2BosN7wKePwS MTwAXJmN6JhwHQsFYydZ2 39KJnvSjB6VQSrcsOcJ0S sLWFsaWduOiB0 g0C9Jv6Bo0YnosljQ2Usr BWqGvQmCynlCRv4T0CwXi wvdHI+HL80CBWvAF05DVo 8YVS2yUkzFFad TVJyT3XiwS8iBbFzXXFfO GRkOyc+PHRhYmxlIHdpZH RoPScxMDAlJyBzdHlsZT0 tUo5cQBJuPHNv sYrbwBGbDkKng7twKTHgQ HxkVU9ikXiwV8YpwOV3LF Ksi7j6Aw40V40nW3ArhHG +ZPBsxGR7vRI0 fM2uDtRjNvP6BIsvY971D tKbnLAjShbsb9oip6pepA f9SjD3ZHSgmjCknMijIOL 2b1KoGp99C88u IHdpZHRoPSIxNSUiIHZhb Zdteh2eqP0lXo9+PGNvbC G9wYJ3cW2cIdLjSgN6ATe vX876UnLrgJNi Slgqe7vks4ztxZa9GzOsQ GElunSezXqwSTG3y8KaJw 04T0QkwQqor6GaIbc5ny4 2iDDtc8P3sIT6 Z0XuXJZlfavdoDWrkSahM F0qJCFjfdflYPOlsP3mBY JlN1e6EqTpJnG7SPfkJ2J pemU7JXXuiBNl SRQmmPTNnJ9pxmgcr5hou uagNiGyQOPnPQh0MAl7ML DgxHlxXqRpLFK0SxK9THB 1tDNgmI5jsBcb ammflW6rSjw+CXL7fIGxb ACYMA3aXqapmBK+PHRkIH J9kDddBUpdRUWfdA0zKFN bJ1w0BpYjAsO9 IRzgI2UwhgO2TSTdzNBxG RBfdJCJdD1leroso3lcsi reWdTmMYOsSSr0EBx5PYF saWduOiBsZWZ0 EtQ7QYC5nUTmgT4wlTgyd zolsN4rZsx+QmlydGggRG Z3ODd9Z5JiJoh9GRKqcFm eHZ5oqSKaGFhl Hb6xpEvpnDzpZX6qYLNet ueqj107HhXmo2zeODLecK XoORhtNLN1T93dh7V9TKW gKTYnODN5tRI7 pH8fzMsflzjdgKEgiDfux qCxaFtvKTjyEHwoV174VQ XduYgfXsDhEPp5R8HcXfd 8VTVwqVzaMP9m nWMmHSwzXw5fvJvmsZepJ R6gPAGktstzw606WoQtr1 rnNBUznLNwVTabRCW9S70 tu9R8UJVnRNRl TLI7hDE6wW2piPsyejmjx GVmdDsgdmVydGljYWwtYW gtA555ETOseHlsUzAoeOm 4K7TbKkv4YETb gCezFV6dxYVfRZqqWl3ha EbfwKxlIA9uCXFmhjbcz1 59TgGcv3zzYHNogICgJVq xSUD4M40gj3S2 PGPiLNSbCUH6eZJ9mF9qx GlnbjogbGVmdDsgdmVydG dxZHcwISkpQ010GPFicVd nPlBhdGllbnQg FXjhVNs8F4WhVmtcrHJ+P H33AALaRG22rWOktQZqe5 qgpFq8TqJbPTKtJXU9lHs fDMysk1LdAVTy V95xqNQzw7H1RLAgiUjsi EMqUwRtrVF7nR6tCCpqtr oxg6yegnahRpijd3neok7 2rG46X72qROrl ZHRoPSIzMCUiIHZhbGlnb m1owN8gKn0+BJUxwDL7vY D6uQ1hKXOzZmV8KUeuM31 9InRvcCIvPjxj t6wli2njrAm5AeR9UVUgo nJhyLblZDI2n6CcBk71J6 9sIHdpZHRoPSIyMCUiIHZ agIeykp1fcK6o Ii8+EGRipYQ7fVZ9nX9wI fLmCvC7KRvqI002OuRidK DvUhvhX92aY4TehPR+PHR fNhl5OPKnhDuh XV8ekUQnDNynOe2wVOG5W xHfClSnDQcuV0SnCXDkbp gjzibyeXN5QZBzALYftK0 7Tz2bcMjdFSGf yNPHiC2kdlrap6hagtgwZ fPgLNIcFHm7QJe2KTOfqN kiLgHoGCI4RkD2ZXO8rKM roH9gdYimtwry oS5uZ3VeBBHtmasoYf84n B8fEjLjLsT7RGqnWcf+U0 GDARZMApsvSNMSX7crLLm UEG07T8LiUyx8 TTCqrZigVC7xqVJhSIumB v9tbEofiTyxXO2sFWFykm rxUAJnwX6oPKIoxJGcqJm jAX4pBQLerxud s238DwDiPDB0DZMlpFQeL 3RirL6lHoWoMIVsOOTeJ6 VcbHIsJUnbT389OUdjEbZ 1ZTIfmrWwB3Wc DHFcrBhvBgZ4v5F6Et6uY y1uJV0jMXG1QG62OV05wF Kru8U2rYW9G8BcOGCmfxh dxxdypZU4JQDb CLMvrB16oALoGCysYc6bo 7D8p255VYZmYWQoxW98Io 9vwKfzMMCupAMKyR7yhan vg8lpouitAhIr HCTdVBw5ONf2RUBflGzgX iBpOVV3KvB4LSM5iFWgfZ 6zmFqokvwhmB8oPml+NTk fOHUfvdM7A6Gl Cup6IIObwNefTP5uhZZnW UfbBa2vcXrhjVulBQ6kTX JuxzcwWEAehE8hXCUkpIE zvXzsNI1zIYCb dpnxs648IgKbAZM2RTPeq ZBoD2UsgX5vEuQmERRrUB XgR2UbpYRoIVnjW583IQc cUcO3CBTnbyTt W4DbAZHjdGtaWxW3s0V9M v2JXXmDXZ25SM63wYVub9 D9cDP9X5MiBVQmawarrfi hlPG2WFIjVHHy vA01hNVkFVjnVw3hu6R8t 096URHkJTFjlR43Fx6eiE hvERBljIJVnD6sdbuyq4x vcjogIzAwMDAw NSp7RFt3OVVwgTidVzSjQ QV7XmA2HAJ5mBRboL3ypR okynyagW9oDqh+A8J1M0A kPjwvdHI+PC90 NWWxJL77iACoiBDfv1usk Ra8JuDkQSFvZZB6vWxsJE wco2BxIWAxP82nfSPma3Z 6IGNvbGxhcHNl UmDiqNX5mW2yUInjmmdlp 9bcskoxUpmlh1ruzc36hV 40F23yIVerDHYjQSQhQNQ yOLUveZopkh6m vV9wBq7+WCTmgAC9lTP7f R2iPcXdQbJ0UVcyD476Eh XdgCWpLycag6xtj2xqlWu 9IjIwJSIgdmFs gYmsNVD4n9HvGs97N31pV HdpZHRoPSIyMCUiIHZhbG zvrs0auH6cJc9+QX4cq9t ctb43bU65dNU+ FSItTSV1rZodTToiUUAof T4dGCwaNtT7DIHrCvCroT 49tYUuOQuoBo3mqNyddUs qUT3tEKYykgzh l562QpIwy1srTEMjtNUkV IggJIP5R95yr9Y6XUEnYF RqJKA1eRM4eI4vlInzhnq gbGVmdDsgdmVy sNopCAdtOHtlY946KYLvz IrcVlKzpYSrC8broiBVLU 1lOjwvdGQ+CDMyVBJ1fRq eDUdrOXXnlG0x HVWaB2d7GwXlCoW2DZojD 4FklhV6TVKkkKYiNSMufC NTiB5gjrbsw7dbtiytVzS cMUYqSRo0VWn7 AQTbeAzePnYkITA6DuO2Y JK3iHOlgC5kfCiwzvdfgE 9wOyc+RklOOjwvdGQ+PHR tHQB8lTfwAMhk SRGasZ9vFPZtU2d8DwWzD lE9ZDqqM1AfjqJ1DPBcaY UjDFKxkCHAgZ0hrldjb9y vcjogIzAwMDAw UXj8CSs2CJYlpKjxXxEgI BX8JvD5IOW8hNYyfA2ryQ bzitzrpW0uWfn+TVJOOjw vdGQ+PHRkIHN0 gMsfDQchJLSkrA1xHSQxF 8y1DvZsCzP9ZPzjY6Srde E2IWMpqQWeNHIovWNKhB5 hxsovg5nurwpv EnZlCRQcZEe6NNm8DTCdo DztSqZsGTL1CrH2OWF3dA GzpI0voEyoyedzdA1bNhh +JIT3XPG6CQ36 RW60M5GeZpkdtBCvpFZ+P HRhYmxlIHdpZHRoPScxMD FtAaMisXinXE4kDi3bBCL yLWNvbGxhcHNl OiB (more content not included)... [facility] Consent Formson 06-13-2024 Consent Forms [id number] .[email or web address] [facility] Wound Care Noteon 06-11-2024 Wound Care Note [id number] .[email or web address] [facility] Coding Summaryon 06-07-2024 Coding Summary HTMLBase 64 WysdefcxMQz0pUu+PGhlY WQ+JF9DWKVjP90deLVsgD 4qD6IXLHuXLekfPJTTRSd PHhUjdkXkTG2pdKNwLARq IC8+SY7tHGMbWwunkKCzo 9X8uJE1C34mxd0iRFdrdG Z1LDLxXmEmztoxb7ifmLe 6IDcuNmluOyBt LZNcgT37XLR2rL36Zi73d JKfuJWbj9hnqDb2KjPrMT UoSEN4yIehOOixb4CnJJO qS22toOGhf6B7 BLYkfIwpbKHwXfJelNS3o S2hNKxrkxvke4utfkqpEu m0uh11vWGfc3M3dKU2B0D xliF8AYLhoSQs QrymwQNEtC6prnvfp1byl nhsPgCbIFBcCSv8VNz4GG SjfNudIjGiEG27IVL4UOA gmqTzR9KdGIWz rQxpWrW2s5E5Uj7RK4JEE incB9BJEOCBLQdcvFU+PC 88lc21A8BeFgnyOrc6GCV tXAQ5dPS2xF5l ROAdKRwmb1Y7hBL7U9Jne tGkoc9lx8juWAXjGGklL5 9chNCnu8Q5TKLuxTZ3QXG yfJkpOaHvfF87 Oyc+ZZCweIzzi6UaJokrr 8wpu5vguWa0WhchNNPixn JnmZzsREH3k8FvZo2dUGE brLQ3nQN9uY7r BmQpYgL9YCrqX633IvSnm PLjDyeaL78tB8VxjUW+PH TfVip9JMEgzEkqPG8lR3H hZGRpbmctbGVm lAcoAB3fOVXuphuwFAJvz V1uZUOsI9g1QtHqHgT5ZN niM7YcXRDwuxveKb26nF2 jWkEeEmP8AMuf H2NjyqI9MCRfeWVxJLgpJ XP7A16fc7O9CLVzYROqRH Z8bYF3gU7evXuabypfzNU mdDsgdmVydGlj MSqoGVkcY052HSHwvIjwV kNvZGluZyBEYXRlOiAgMD kvMTkvMjAyNDwvdGQ+PHR sRGI1oTrsVYFf sMTxLVhxQu2yzGtvfVrtM G6hQPBoojyfOVBhrY9tUB JfrMTyjDgzYY4uACPwexs ff956TmNoJZI8 SEXbkUHhQ7RsyY1fEoKtS KCeMWOvZ7MeuKEsNWyjM1 97YCczXlG1JNMvfnTsW9X sLWFsaWduOiB0 v8I9Sz0Aw4MvbmqnK4Fis GIkBrXqIyilTCk9Q1YsAf wvdHI+TM74AOBeRR27UTl 6IBT3cQdsKKmm NJXcF9VfqP1zWzMeZNUiR GRkOyc+PHRhYmxlIHdpZH RoPScxMDAlJyBzdHlsZT0 sXs4yODOvXUUq zPqeeQWmKtGvo0whESJwK CyjDZ6sbGtdZ1LhpRH8UU Het1p0Rt29N07iP9OuoQL +VMHpmLY1wXD5 bY8bCpMqPtU5CCurA458J rAwtYDvGlbhg3quw1axwL j5PqX3JDNvizGogXglIQI 5f2AiOa47P10x IHdpZHRoPSIxNSUiIHZhb Nymuo6dfH9eMn9+PGNvbC X3yXH0vJ0tTsVsDzW8QWt pF094ItOpuMEl Gfazb1zwt6tcpEl7AtSbA XZmtcLfgIxpHOR8r9HwQs 84A3CfcAmax8AnGqh9ff7 5uKUgg9X2xUO4 P3WmNRBtkgvbtSXqdFesS I9nLPWbpydjEXNxbL0lNU IbK2w8UtHxRjE8KCvzQ4E wejO4ENAcaFPg NETymCIGpW8jmlmvh6umg nmbAqEvCGCdGNm4OXx6CY TmpYygJmFtAXA4AoY7BGO 7qPIxpX3fvMwh lzcffA0vMfp+YQV7oRMam UALXF1sQxpqcJS+PHRkIH D1jXrzIBexFRDqjU3gTGZ sD9p1XrVjRiO7 FUjjE9UsenI9LLUwdSVdB TLksIKTcI8lqvell0zwbf xcXjWfWFDpOQs6KBt8RDA saWduOiBsZWZ0 TzC6CQF3zNSvlL1wqRazy zefhG4zRku+QmlydGggRG S0QJz5B1TwWrz3EWSweWv oUK3duAHtWJqy Lj4yrHtvvTkiXV1jKINdo idke483IkSxh8rrHBNtkL QnMUbcZDG9F19hj1H2TPU dMYSpPKS7qOL3 bW8gdWdmgewenASizUres nPmeHxfCAlwRHizZ998NN JihYjmUjLjNWm7D6HcLdc 5WINljAnvSW0o hNAmRWqnQw2pqDdwgBgdJ O7xSPKmljtow135ApMds2 rrSJJfbYVvTCvoJSP3U82 yd5R5PDRpUHBa III4dXY8lL3ctGhjbvljg GVmdDsgdmVydGljYWwtYW fwR490HDGmuMkgEjWogPk 5G4HnSdb0XCMx gIxhMF6fgZPbVYdeDy4ww BtgzSamBD0mHJBuludtc1 06LrThg4uuGJWbxRIxQLx nGMT7J32ck3C2 QDYsRFNxTFF2jOE1pY0ty GlnbjogbGVmdDsgdmVydG cjTRmkOGyaP339SWYklSf nPlBhdGllbnQg SQhiIMp4T3DbMfebhDV+P A38JSFvYF06pAMbiAKbd9 kxcMh8NdBdAQNcFUE2jId qYJeto2QnYLEe I54raRBga7N9RMPmgUkwc CHyGzSntLU1uF9xZJacia vjl0uavwfbQflkd4dukx3 5nL75Y13pGBhl ZHRoPSIzMCUiIHZhbGlnb o3zlY5iXt0+PSMdwXY9eR K4yK2sWXJnFzV7PCjdE93 9InRvcCIvPjxj f1wrs7zyaXp2BoT5XMPfk iHehIwhEDP1s2MeLv04L0 9sIHdpZHRoPSIyMCUiIHZ iyCbfmh9jjM5n Ii8+PTNxpUK5tJU1wJ5pO aEsHjA2NFcmR090LaIfkQ WaBueiM25eY0JraZO+PHR wVau6ZFSadSmi WG3lvNMeBJxaZx4lDMB2Q yQzOqWeWYixD7OfPSCedf scotbkmKR1LNAqBPRciZ4 1Rs8ccLzyXYHw tLWHvY9qmffkb5lffwfkP jPbWBSjWRd5DQb9VEWykU mxCaJgRZD1TpR8XFL7vCJ dmX4sjDacznix bG7rI3VmRPBdddqhWz16f C9pEbXwGcG9ECbhVhr+U0 BFWKOGYpegKNLNS3dcQHt YUB07G9IgJzh2 LSYbcMyaLN2crOPsYJbvW z9zyLbalHywER1jCKGjii rcKKFdaT4xECGwlBTqbTh xQO7xRTEiyqsk r566EoUsTFL0QGHgbTAxW 2OkpL7kMaMsGEMjBVVkY1 LsaKZeJSeyR671BMnvPsX 7AIWpjzQtE0Tl CJKxfBfkLgV1u5G6Td0qC s1uTZ9iCMB4MO92UJ04vY Ise9F7xTO8U6FhZLZuvws mldsgaHZ9KPWd ZAXhxP20mZUxJWfpGm7rl 0X9a655ZSTnEPDdtB36Fa 4jxZeeMBWydSFOmB3finy gt0gomgiqJlEk TRGmUGi8HCq0XHXtqAwkY zRgJTB9ViX6WBZ0bSLhgV 4eyYxnisuydT1tJre+NTk xLSHqkoE6Q2Uw Dbm8JNTbpFjqSW0ptYHsW YnyOp4fiQospHjaTW5yHK NcnwszKYCnjR0tQCXsjJB csCnaMK9fEVIv tmbjj441KsEfHPK2LVWhp LZyG2AeiM0kZjIqTPFqSQ GtN3VggBRzAOyrB487MJk uHsN6NKUsgvDt D6UhXBHimZhpFkW5a0W4V e8FESyVDC99BG98kRCxz2 Y2gFY2L9LpXTTjvpzitfa tqKL3TZYuQBXh xQ23bGGhMXtdRw4kr7E6m 609BUAvZMJbyJ05Nr3njR oxKYBwgDRCbN7seolkx7v vcjogIzAwMDAw ZOg8IOu9KRJpnAnqYcSmD AM9AnF1KHI2bFWhcP1ysX qxzwaakD8jUfx+D6X5G1A kPjwvdHI+PC90 LKMoMY13qCPfjJYee5fri Lp8BzSjWPCgLWG9cIumMQ gug1CjZWHwD25foEMcc4L 6IGNvbGxhcHNl NkFbeSP2bM7xZXdchvtwj 7tgfyqbFdmau2pxju61fK 08Y11iCAqqGGQuFTNcLVE hDAPmuZtrfi4f hW4nXb1+WPLooXA6fQV3z S3uKwMoRsY1FTpoX010Vx AhwFBfGnmze2qoy2xvzDs 9IjIwJSIgdmFs aVmrIXR4k6RqMq54U94gZ HdpZHRoPSIyMCUiIHZhbG bebz6cjX7xPg8+GK4pe7v vuo38nC13xRU+ XIOmTKZ7aJmkOOpwAVGqd R7mRTtjVtN1XPVvGaRdgE 59hXZfDVbfFj9eiIretDy jBH7xMRDwiwbq j119YsOsc2bdIVVsoQRgS LigFPG7A74bq0W5WBPxNM DxOBS6wTW9xN4dcKlimld gbGVmdDsgdmVy iUcqLTurRNqfV685XBNbp XevDoUcgYTiE8bmewFWPB 1lOjwvdGQ+HQFrRPN3hIy bIQpmTEUwdP2y FIQxZ0q8PpBtGxV7TSysN 3StjnX4PXUboIRzMCYntQ PFqL4seerrg2nhsaleTuJ sQIDlVKo7ERr9 ANUrtDwkTpEfXFJ2MhI1Q OY8nKFhyJ6ooZhwpfkkcF 9wOyc+RklOOjwvdGQ+PHR tPAP1pQhpZPjt GBRmkB6lNFJgD7c5TyOiV wR2UDfwF0ZoylZ7DDZgsB IwKXRikFWRmQ8pfzjla9f vcjogIzAwMDAw XBt7YHm1YYFpxAyaWpZoX MA1JqK7BQX6gEMotY4jmS aqripdkT3pUzf+TVJOOjw vdGQ+PHRkIHN0 gAgmPUveMGKgxT2oAUEoC 9o7QmIiOyB6BPrwW6Nuxp I2HWGasSKsDLImnEUKbI2 sisqcw1myrdng LiLpPJDcPYo9YDa6RQUyq NzwDdWmGAQ4GuE6TWR2nS BifE4rkTkyniileG5qTcq +LNJ0IHV2LR39 CR33V9EjIydhtYLsiML+P HRhYmxlIHdpZHRoPScxMD LhTmSarHtgDX9dBd2uFTN yLWNvbGxhcHNl OiB (more content not included)... [facility] Office/Clinic Noteon 024 Office/Clinic Note Patient: [...] 139.210 kg Body Mass Index 40.67 kg/m2 [place] Body Weight Calculated 79.52 kg BSA Measured [...] was normal.. Impression and Plan Diagnosis Diabetes ([id number] E11.9). Plan: Discussed with patient we need to get him back on Ozempic to try to get his blood sugars down. Also that he needs a follow-up better diet. Prescription for Ozempic 0.25 mg weekly was written. I did discuss with him possibility of also going on insulin therapy. He wants to hold off at this time.. Orders Orders Evaluation and Management: 53851 Office visit - established pt, Level 3 (Order): 06/07/2024 10:19 EDT, Qty: 1, Diabetes - Neck strain. Diagnosis Neck strain ([id number] S16.1XXA). Course: Will try different muscle relaxant using baclofen. Also a steroid burst. I did discuss with him the steroid burst over the next 5 days May exacerbate his blood sugars.. [Electronically Signed on: 06/07/2024 11:36 EDT] Balwinder Miller MD [Verified on: 06/07/2024 11:36 EDT] Balwinder Miller MD [facility] Coding Summaryon 06-05-2024 Coding Summary HTMLBase 64 YkvhsveaKLa9aSd+PGhlY WQ+YP5FIRZnG85qdPGatV 8kV9AAIFyYZyjdXWMQDUh HWsQwiuOaEB5lhINnXYCv IC8+KB4bWHXbJzmkzDJwe 1A4bXE1K43khu1yNWccyD W1KJBhYjDrlqgnw4jnwTg 6IDcuNmluOyBt XTCzjT77UMN3wR20Oy02g OLdtJBjl0lshTl1LpDmBN YfLKL2xFgwLJrhs4IbBJJ pV65ihLTev6V1 PVEdeUnfmONdMnOqgWU5f P8lQVfnpgbtt7zcdqroFn k3fp36cSJzr4D0lQD2W3E ofiQ5AIGgoVLd PfilxNIRlL1mxsfqj5rbu uuwDzRoRHRhRNr3MUe1WL KwuJowOkJwGE12WHG7TRL sguZeO5OoBNYx zJzhFtO2u9G0Yz0SA6GPX fduD3JVHQCUFFqdbJN+PC 41xb83S7CdAnayNlw6DTR oHAP6kXS9fX8q NBSkJFedk4R6qBR6X3Vci dObkf9ux7wtFSQiPIbmG7 9xoVHke3R1RBLrvSZ7JYQ zhTzaFkJplL51 Oyc+DGIwcRqzg2RlYkmvp 5nmd9aibTu9ZweuGOImwt PcrKlhXYG4o0JuRt0bDGY wrVY4fES9wP5z AuItAaZ9VFcbV974GaDkt BSaRvutE41nJ0PnsFE+PH LxDrb6YWNciUlsLG8zD7K hZGRpbmctbGVm dWokTS1dVEPesyobDYUsf X8mRZExD7x4LnFaIlX8GO qyW7VlYLKtmxhoCv07xE3 xRfZlXyQ2GCyk O3CqqwD0PTSkhSMqYLotZ CX7C60ap6S7DHOuENJgRZ K9uTL9cM5jxUimwpqkrPH mdDsgdmVydGlj BOfoYBuuU973LCHloAhbM kNvZGluZyBEYXRlOiAgMD kvMTcvMjAyNDwvdGQ+PHR zTGK2lWoaOJTe gTLmQKxeQu3hhMjetMveR B3jCZDsutrvBIRkqR8oIE TbxAJmpBnnSK1rREVyffq uc481XfSiDVF1 FOQtbUGcG9HbiS6mWcDeX ZBcCRYkI7IbqRKjJRohL5 26JDdqUsN3HGKrpwBvK0C sLWFsaWduOiB0 n7R5Vh5Id7ZgtszrG8Elz JVmPuFtXiqkDMj1R4VqGo wvdHI+VS73KFYpRP04AEu 1XCZ4wXhwYRnc YBViW9GlhR1eBrHmFDOzC GRkOyc+PHRhYmxlIHdpZH RoPScxMDAlJyBzdHlsZT0 nMm2qFDMbWTEk eRghwRViCrKpv2hgRACjB AscPH3xeBfcY2GiwMH6NX Mlw7r1Xj46X91vE5GilDE +XEYfkKM6fIR8 oT9eVnEyZhG0ZYieE660Z pCywFXwWqeeb2fkd9spmV l9AhR5UEVgkvBsgLmaOYG 2r8BhAx26D82q IHdpZHRoPSIxNSUiIHZhb Wxhjs7koI0rWb6+PGNvbC I7hUC0dE5sLhKpTiQ2QMy yU176EhFaaDFa Axbwe7nnw5owaHi4CyWdY EIjqpUqxYdiPQT4u1RrDj 03L7MziSfnm9GxVca5xk6 8sUIqe3T4zJH1 W1QzUXUavgeqqOKthOyyZ Z9mRNTqffeiLVYbeA9eBR ZqK8e0UgMzVoX7UOivL9Y jwxS9ULRvnBWe UAPpvIAOkV8uujbme3vfm pfjAyKkLEJpYVx9XOs2KN SwkLxpEjLjASA9TiG4LQV 9yNXgeZ0djZzv kidxpA1tHov+HND5jUZee OGPSC0qZnvsrXR+PHRkIH I3mQbjRXshFXJgfH7pMQM xM4l8AgHeXbN6 WJmmU6EjrlL7UWKneGLrH VKqeKOCzN1bhtckr5mrit uqLwBrBQZoRUi4XXc4UIX saWduOiBsZWZ0 KiE0KGU4gYCdcZ2vrNcyg otycY4vFvd+QmlydGggRG S9IHx8M9WfEfi0VYRunJg zOS8iyKDjBTce Ed7riIdkeRiwFN2uZSGhj ultk382QgHje9kgKMBsdW JbCIaxYQF8E14ye0A6CGA dWYMuAHA9dAE5 cG4xaBiubxekrYFhtXlbn mPmgDkwZOpvPByvH639ID DzdGseRfGrSMg0G5OvApd 5JPDdrLjnHN2j oWZhTDfsNm3yyJmzpPzfZ I6cUWOtspemw752WwMxk0 vlASZxjYSmLCqcBWS1D41 pb3B5IQPkUDYx SLY7qIU9bG7gyFopezvsk GVmdDsgdmVydGljYWwtYW paD824WSApbPcqHbYhbYm 5Y3KpTfv1EAVf xFbfUW8xyPAdNDwxAy7wj OmhfNieUF6yGPPnsxczx2 80HbLtt1yzGWEofVYsAPl pRZY2P21gy4C3 CUCeFEHhJCD5hCK6vA8qw GlnbjogbGVmdDsgdmVydG dyYAppAMasK890IOOjfFc nPlBhdGllbnQg HIbgIYn5U2CkDantqYF+P Q18KEMmMC47bTIvwPTrk1 pysVp4MwOjLRXyWUY6fDi sURzcr1RkDBOi H46iyLGrf4H3KBZpwOwoq BMlVlRprWN0zW5wKOkkgy azy6ldmgglJvolq1csbt2 1dA16R63tMSzs ZHRoPSIzMCUiIHZhbGlnb d8qtK4nFr5+AYVtpJV0qR Z9xS5bIPVnUrT9BAfbG47 9InRvcCIvPjxj v7nak2dvhEa3OpS1SJSvb iCkjDbfYHR4q9ZkVn85B1 9sIHdpZHRoPSIyMCUiIHZ ehJyvle5brY6b Ii8+EZEtjDF5bQF6gM4vW jDpVcQ0EWgeI828YgJzqM LkNqwsR34mS4HfxFT+PHR gNwx4NFTamSqj GB3auQIdUJgvRo4iBBO3E pVtLoBhHCljW0CvWXHjhz fzsnffcBN5RRBwPVZpoK5 7Zo5bsPsvQZEj hHQEjV2hddrxv5bzvwszG rGyZMRqOFb9XTb8CCTzoD yjPsSmWHW8SuQ7CSP5cNM wfQ8azXyqgybs hT3hA8NtJWUsadczLt88u F3jVbQuGgN9MKajNft+U0 YQAAJQFjxvYDPKV1bgUWo QRL67O2WjLsq6 IKMlmPrbIX2jpVYyOEqmM j2gjBtevShmNU9cALBlqx eqQOYsgB2qYTFqzFKvyJg kUG9gEBRvqsen z285PkEdDPE5RIZpbJNgE 2RktC2dWhOiMLKiYSBbZ2 PsoJYhELzjM055BSryJjO 6MXMdqjZxG9Gl AVYshErhMjF4c1F6Qz7lJ r3dQK6hUYI4TA54OE97lH Vfb9F9pMC0S4MqAKLznjz vzspynOV9EZZo NAZugS33xQXcFGddFg8tb 5V2e081OMLjTVCypN59Zo 5uhUlxXJXgyGACpE0gdfp kb5czhnwjJpQk OGVrRZa8QJl0RGYskIsgN gJyYYE8KwA1KWY7aGTwaY 9zjJyviqkwpD5jAao+NTk iESJttlS6B6Qf Nih6FZAmuXceNH6dhGFhL GyySe9bqCqxlZlhDY9hCX CbbjgoZROqjS9nZMNxvLZ mmLooYR0iAPYj uldad959HxClROR8SSNnv BJdU6YkcH5pBkMlLZVpNJ PnD2BxcKHyWItbG735ODq fXlO1JOPxfzMy T1UiEBOuuYulQhG2l8P7J a3QOKyAXA83OT80xPBed8 H5lRV5V2XoBWXueidnrkm bnHD4DNVzJJCl lW48wLHrJXugTu7zq0Q3c 513SZMaHUZmoF02Hn8lmA dlYZJufWVOdZ0clsnev8v vcjogIzAwMDAw BHu4SQh1VZNwiSsgHsPiW SA9NrE2SGL4yBXngD4gfY siiziirP6jIbg+N0S2C0C kPjwvdHI+PC90 MCTnXE26eWZraMOsg5inn Bg9ZhRsYMWbURY4lEugTU xog4SrUQUyW41pgQWiu5J 6IGNvbGxhcHNl CsTciAJ6eZ6yLDatxjkei 3cahvjmOuraf2hlpg33jJ 75U37cONghNDCoGZXqFPD aLNFbaYtsza1s mS1qJj9+PXNjkRG0kSV2z L1kCnPdFxN7JSdwT125Be FsvZYdNeoqz0jyr4swvSt 9IjIwJSIgdmFs mRchNIQ1x0HnPn71Y68jF HdpZHRoPSIyMCUiIHZhbG vuxx6lcW7mDo2+NA5zp8p kuz51fU39dVR+ ARTgFGG6vCsfGDqxTUDuz N4xZOhxNfL5MJUdGwTewA 25yPKaZCnoWt4ngMpobGz kKA3dGNXpjurz e559KgNve1nyZXCslPTnC HwlAVC7A78hi2G5LMZnRL VrKZE5nPZ9gW7bkZsvpsi gbGVmdDsgdmVy pDovAWrpXQpxO137RLYli EuwBiUglUMyI6asyxZQEV 1lOjwvdGQ+CWJyZXX4tFy xBLilBVSyoO3n VSLqQ2e6OxAqCcW8GVzuI 0EnpwX1HHLjjKSpCYTsbR GTpP1jcsjgs2hwrpqyWhQ sJNIoTJw7WVp6 SDZimAdkXoQkGJW7GvJ1U MG0oURbrS8sxBscwyrvyX 9wOyc+RklOOjwvdGQ+PHR oHUL2rKhaEWge NJKjvO7eXGSmF0c5CfHrA zE9LGdrD8NhnoA9IAWzmY GwCNYpxRZGaV9iezzms6l vcjogIzAwMDAw VIx0EZl0LPTslWseKnXyC IQ5BxE2THO5kRKyvD6yyJ dwjwfllK7qFvx+TVJOOjw vdGQ+PHRkIHN0 iJqbCVxwQGXaxS9mHUXbO 2p6VwAiRdN6VEwrY3Ikkp O1VRFoiGMyDDTwdLOQxS5 cclaaj4aoohnn GuNiBGKbCRp8MYm4BYDmn AygKvRtZOS4SfJ5VXB3bX DkmT0riLiooydivR4tFpw +RAR3IVV3CI74 UM32O8UxOqwedIGkiHC+P HRhYmxlIHdpZHRoPScxMD TtDaWduVekUP5wDt9pTJM yLWNvbGxhcHNl OiB (more content not included)... [facility] Wound Care Noteon 06-04-2024 Wound Care Note [id number]#1. 00OTGTIFF [facility] Coding Summaryon 05-22-2024 Coding Summary HTMLBase 64 HllpbmhcPRd1yPx+PGhlY WQ+AA9EKMGuI41zaQCsoQ 2mX4JQYPiALawvFDKNDCx NRsKrzjOyEU6viADeVCRx IC8+FV7lUSSwHcwboCYqq 5I5lKL8K87jgm3yPPwktO O0UNWqHcVzhgbkd6ersYj 6IDcuNmluOyBt PJBryT70VAE8fV67Tr60o HBdvNAui1hbbNu4QiOgWR QnIIJ1lZrdEOmhp3CcHTO hQ99hgXVtf9J6 PTQhxGanzWIdKzIrlFP6e J5gDNytisvxl6jczwwzMm c0ot93gDJwt4Y2tCA6D1H mknA5EHCtyZPa IrdaaYICmT9hvwfns8dcw xgsMhIvMERpAOe2VCy3WT TyaDuhWyFkFW91GWS3CCD fznNdL7AxDOSb kUwnEwK5r3S1Sb2DQ0PTE tsqK6YGPQNZOVkqpOQ+PC 40iz89N3OuXrixHld3RMU zGFQ3iPV5qH9j JRDiOUffp0I8kXZ2S6Ptj hCqqj0os3wcDFFrZCqnG8 8dlZZyc9V8QVDosLS2FXB qdLbqCkIuvC22 Oyc+TTCxzPtti4NuImzym 4qxl6rrmNw6BpflQNZlbq CrmEvuHGH8o3UeZu9aNVT ygFK7vIY9kJ8z CqAxBfN2UElfE957BjOue MTtQiyoR69rQ5ByxKW+PH XoMpz9EMUwqZmoAZ1eE3B hZGRpbmctbGVm cWkwBH9gGUSytratAAKyd O0sFFYhN5i0IjCyDjM8CC nvA8ArHGCbpwqkSl47vY4 vTbGaLdY3GAut C0PdntH3TADskTGgHRqjJ AK3G60qj5W3LRLhVGTzGK T9wHN7bM7fzHrgbtahgNM mdDsgdmVydGlj EUkpMBylN257KFIicZhnI kNvZGluZyBEYXRlOiAgMD kvMDMvMjAyNDwvdGQ+PHR eMLV9jFvwGUJq wHTtKKhlDi1maWxijIrmX G5sYMFbmvarRACcrY2dNG FhwAPugUuuEH7gJJGujoi lf548CdLuARD8 QXItvZYvX6UqnF8wCjMgZ UZkQWOnT6XuqTFlAHaoR1 75PBrpEpG6SWVdvfFuD0O sLWFsaWduOiB0 a6R2Nn7Ow8TswhqkB6Ucu HIpOcKwZqaxYUm3L3EnQn wvdHI+RN16SRVqEN78BDe 0RDB8xXmnVWrn EVChY5RjnK4vDcQlDEHlG GRkOyc+PHRhYmxlIHdpZH RoPScxMDAlJyBzdHlsZT0 rSk0iDGSlGVLz eZygbDPsOdJts9hcSLPaD DfiEB3lmBfqC7QpwXC0SP Aps2o2Nu90Y63dI2AvjOA +GPEljUU5uJM4 fH2sJuXaQoE4XMepN205W oDjcVVkLmxyj5nbc3xbrZ a7LqJ0DGWabtPaxIhlRPT 8r1EoKo36O70m IHdpZHRoPSIxNSUiIHZhb Wckvc2xdC0fVv4+PGNvbC X8aDY3jX6bZmRdJkN5ZUz dT861XmGpjPUk Feydw0fzl9kieHe3IaMiL FHkytNulAzbWMD1l1NgZb 66V2MlvLwmr6UkEug7xf8 5yCWvo5X5lFS6 N3IqWBDpbghtlAWavHxeE C7gFMXyynpuCIAulZ2oKR JiI7k3OeQfToU4CWrzB2P jjhC8YKUjwGIi HQMjfKCFxT1avtmsg6abd oolFqXkCJRwNHl3AEz5ID KvhYcxUsZjTUK7CwF9CYT 7qPDexO7dnMet hpfbdS6qYgj+JKG2eOMzn WYVDK6ePjbdwEE+PHRkIH Y3zOvsVWyzECQijY7rTME pT0x3XqLyYhY2 LIcoD9IxphD4SCOskQTkJ HUyjGGMmC9xfcovn7numz lvPmMsJMUbMXm0OSh6INF saWduOiBsZWZ0 LfZ1KZY4pLQkkL9kmZjeg uotlC6mNhs+QmlydGggRG E0MXg5Y4MbJcd8HPEfoTe yLF5gaMRfQIsr Hj0gkWeulLhdBM2dUWNwv qkib724OyVom0prFUXqwN UuMFrwLQA6S64kx5H1BKF kPVBcYNA8iVT1 iE5wfGtbwuoefWAzkIiah yDktRubMRpsORruP730YD KanBlbLsAvLJf9C6JyPku 5MQDswNecPF9m mYFfCVrdRz2xhMymdVzoQ T8lKGRaqlfef942OyQqp1 jpGYAycEUcZNhbUZW6C09 tf9A9VZMjXYMo XGT1eLA1pT4isHereqkrw GVmdDsgdmVydGljYWwtYW sbG583INJzyTymQoUjtOo 2J4LxByx2AOVp hKmvPU1dtUXwUQjsIz8xl ArtwMvjNQ6pCLOghpwby7 20AcDwv5pvFFQipVJeLIo xIRY6C70xf6C9 QJYjYDSkDQZ3xVV8fL2ry GlnbjogbGVmdDsgdmVydG qaUBxjQBnbH485BTGckMs nPlBhdGllbnQg MGgpYTt6W3XuWdddgQY+P L61RUBxDW69zWHjlMNvq1 rkzNh5GiToVGNeHKP9mEv rQCwyq2BwTJQy F58svODvl4J9WAUeyCnss QHbWcNvoEG1wH2uCOfvvu mgn3pzezbqJdhuq9olxj5 1uR70I81eVMad ZHRoPSIzMCUiIHZhbGlnb o2ehT4qVp2+MHRvaJY9cW P8yI6tRKWiPkC7WCxvF54 9InRvcCIvPjxj p6zky6kucKr9KrP1EIYej cIrpHnqWRJ1p9YmIy23U5 9sIHdpZHRoPSIyMCUiIHZ bnBauju6fcL8c Ii8+EJUbwJK9xBC2qG2wT jGtLrQ6MNwhB536WfRvnK OeMbijU66aU0ZfcAI+PHR tVea2RICbuMlj XN9vbRWgFYvhBu1mTXR3F sCkEwWsRWfxK9QgTZYxjo kmxuhozZO6GQEiRCNyyV8 4Ea8bqHdoTVPx fRBFnE4vnrhwq3qhgyauB aPnBEXqDCr0HBy7QPNpcN hjUhHxPCJ9NvG1KSW7iGS kzU0sqDikkpwh lC8kA8JbVZAwlkqwWo74k N4bBcLxUtB3YCeqIed+U0 UYTXINDuqqUYAEW5zcUHi WBY24X9HtYte8 LLAcbYadHD0yxTNvRYvpU b9amXybwIpiXV7lZHCdkl czXRAgaE3hPSEseDPodHl dCY4pNPXeopsk a091GnWnQYW0NXJorZHtC 3KzzY7fSrSjOFYtONBcA3 CxvEMwOZfpX088QEgwKvI 5EYCjbsBzB0Dm PWHayBtySgK1l8S6Dm2yV r0sTZ4hUMI8IF20GH62gI Mcf7H2oZF3R0ToGXPglpt ggyubjCN3OZFm FLBvkY71eHAlETboMn0ah 3U8s733EEZvBAHxiV16Dg 5hmYumVSQqdMKQoJ0iiut wt0anejxcArAr BVBiZRt4LUc2PLClaCskR kEbTQF7AkJ6IAM3yVQegY 1hgEhknnpgqV7dCpi+NTk gMPWgrzO8K0Fk Nmh6OWIlgVugZP7ijQQvF TacDl9cqWojuEqzCL1pFM GnjzjbSUKqrY9jXZPidPE vtFyuXP8aMMHf mwgfv401RaFrTNA3BXAlv YEyU1EfeT9kWqAeTENzBO BeS8ZczOPpUQctM008HCg jOfM0RDBksrBp X6DlMDAglDrdAmA9a6G4T m5HYWlWDE36WV71tDEcf5 X0hDP5U6MqZUOiozsemtr bnHO7JIFaQLOb zS21zGNjUChpWc8cy8D7e 493WJMxWMTtgX17Mi2olP goDBBqsILDuL0lhjhfn7u vcjogIzAwMDAw CRk9DSp5DDYkmRviBbXjZ YL0TdP1UTV7sFFocE4rcD cmisaroF9bPdf+Q0Q5K3J kPjwvdHI+PC90 UOZmSF97sZPfaPYzs0yav Ec9ArTjRREyAAP8dHnyKX lpf4PxJLBcF38brXXfg4N 6IGNvbGxhcHNl BsCiyDF6tU8kHKqjpqgkv 5zquhcwIqnpo4xhox15xZ 55T62gGVpdPWCkECPcZBD nAFSrvNcfdi3m yI5dTc9+PVCahXS2sCL4y H5kJjWmQkZ7AAqnT902Mw FnoFFrUeukv3rzh4harDm 9IjIwJSIgdmFs wUinSRP4b8NkKe31Z72yF HdpZHRoPSIyMCUiIHZhbG nagg4tqT3oXt1+VX6nu9v xkg84eK78mGG+ DHNoAIR8lHmlHAbiSEUdd G7wPGauQbM0FTNnXnBpeM 74hYZnIBlkFx1paXahyVl dVS7dHHIutsoj p163AfPho1pmAUNtbLWfV PyeVFW8S39mx5L1LHVwAV TlMIW2gLC8dK4naCblimn gbGVmdDsgdmVy iKonSZuiJEwsC033DYHab WufEnMqcORnY3frofKLKH 1lOjwvdGQ+ODAuEZY5jBw yZVmiWQIstO3e DWHoP7h6VmXmVsL3GClgY 1ExxqO6KCRqaVPjAVXldO RErF6hakiqa1jxmzxpKlU nYTXeQLg0JCw7 HHZvdNlyCfFlTAK2ZqP6N PG6wAFjaY1ibEfkocqpyY 9wOyc+RklOOjwvdGQ+PHR qCNB9lZyfKDum IITfhD2kXMKuZ0s6OwTaB pH2FGcbN7BgvoB4DCTrwM LuKYWupFKTuI4kzjloc9f vcjogIzAwMDAw KRd0KSy2EZSpcBztVaQiT GM6OoX3VBE8qJNctF6fqD nhfrndgR5fHme+TVJOOjw vdGQ+PHRkIHN0 xChnQXxsAPTtbW1uJNSlQ 3t0YgBeVbY3UWsxI0Bsgu X7KWLfxYEoNRKfdNEKcG8 wwtcfi9ftyucx NbQnJVXrLRa5ZNy8BOLnx SpvJbIgHOS2DsQ3VXB7gE DyhX5tfWpliuwloN0qEvg +NDH1JEB6VR62 LP21H1JgLllmcGChzRL+P HRhYmxlIHdpZHRoPScxMD TjUkZjlWuvZP2nWg6wJDG yLWNvbGxhcHNl OiB (more content not included)... [facility] Wound Care Noteon 05-22-2024 Wound Care Note [id number]#1. 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 Can you please review and revise however you deem appropriate? Thanks. [Electronically Signed on: 06/25/2024 11:34 EDT] Kimberly Jones MD [Verified on: 06/25/2024 11:34 EDT] Kimberly Jones MD [Transcribed on: 05/17/2024 11:25 EDT] [facility] .Auto Diff 1on 05-11-2024 Auto [place] % 8 % Normal 09-30 [facility] Comment on above: Performed By: #### 2 [id number], [id number], [id number], [id number], [id number], [id number] ####[facility] (DEFAULT)[address] [place] [address] Baso Abs# 0.1 x10 Normal 0.0-0.2 [facility] Comment on above: Performed By: #### 2 [id number], [id number], [id number], [id number], 1815845, [id number] ####[facility] (DEFAULT)[address] [place] [address] Basophils/100 WBC (Bld) 1.3 % Normal 0.2-2.0 [facility] Comment on above: Performed By: #### 2 [id number], 0284646, 8142851, 66792033, 9714077, [id number] ####[facility] (DEFAULT)[address] [place] [address] Eos Abs# 0.2 x10 Normal 0.0-0.4 [facility] Comment on above: Performed By: #### 2 [id number], [id number], 0504728, 16231114, 4201672, [id number] ####[facility] (DEFAULT)[address] [place] [address] Eosinophils/100 WBC (Bld) 4.3 % High 0.9-4.0 [facility] Comment on above: Performed By: #### 2 [id number], 7490506, 6249405, 17220654, 0983304, [id number] ####[facility] (DEFAULT)[address] [place] [address] Lymph Abs# 1.3 x10 Normal 1.3-2.9 [facility] Comment on above: Performed By: #### 2 [id number], 3682126, 7585940, 33535874, 1539957, [id number] ####[facility] (DEFAULT)[address] [place] [address] Lymphocytes/100 WBC (Bld) 24 % Normal 14-48 [facility] Comment on above: Performed By: #### 2 [id number], 9480941, 6052046, 04731163, 0269735, [id number] ####[facility] (DEFAULT)[address] [place] [address] [place] Abs# 0.4 x10 Normal 0.0-0.8 [facility] Comment on above: Performed By: #### 2 [id number], 8300880, 0166772, 59029844, 3501744, [id number] ####[facility] (DEFAULT)[address] [place] [address] Neut Abs# 3.4 x10 Normal 1.5-9.2 [facility] Comment on above: Performed By: #### 2 [id number], 9139556, 1486245, 83719126, 4204061, [id number] ####[facility] (DEFAULT)[address] [place] [address] Neutrophils/100 WBC (Bld) 62 % Normal 44-88 [facility] Comment on above: Performed By: #### 2 [id number], 8013254, 0615114, 40655773, 4575100, [id number] ####[facility] (DEFAULT)[address] [place] [address] BMP Standardon 05-11-2024 Breakpoint Chem Normal [facility] Comment on above: Performed By: #### 2 [id number], 0255072, 3094075, 66659640, 8156342, [id number] ####[facility] (DEFAULT)[address] [place] [address] eGFR Non AA 36 mL/min/1.73m2 Invalid Interpretation Code [facility] Comment on above: Performed By: #### 2 [id number], [id number], 0067680, 59811180, 4169253, [id number] ####[facility] (DEFAULT)[address] [place] [address] eGFR AA 43 mL/min/1.73m2 Invalid Interpretation Code [facility] Comment on above: Performed By: #### 2 [id number], 2108583, 8332639, 84454362, 5930051, [id number] ####[facility] (DEFAULT)[address] [place] [address] Anion gap [Moles/Vol] 11.4 mmol/L Normal 5.0-19.0 [facility] Comment on above: Performed By: #### 2 [id number], 5182740, 2359977, 99393108, 2672815, [id number] ####[facility] (DEFAULT)[address] [place] [address] Calcium [Mass/Vol] 8.4 mg/dL Low 8.9-10.3 [facility] Comment on above: Performed By: #### 2 [id number], 5250241, 6980980, 85036989, 5160418, [id number] ####[facility] (DEFAULT)[address] [place] [address] Chloride [Moles/Vol] 101 mmol/L Normal 101-111 [facility] Comment on above: Performed By: #### 2 [id number], 3541408, 1630399, 40346410, 1183114, [id number] ####[facility] (DEFAULT)[address] [place] [address] CO2 [Moles/Vol] 26 mmol/L Normal 21-32 [facility] Comment on above: Performed By: #### 2 [id number], 2000116, 7183379, 69329330, 7560645, [id number] ####[facility] (DEFAULT)[address] [place] [address] 94353 Creatinine [Mass/Vol] 1.93 mg/dL High 0.90-1.30 [facility] Comment on above: Performed By: #### 2 [id number], 5372986, 0890116, 51781859, 9590453, [id number] ####[facility] (DEFAULT)[address] [place] [address] 35924 Glucose [Mass/Vol] 337.0 mg/dL High 74.0-118.0 [facility] Comment on above: Performed By: #### 2 [id number], 2703637, 5935553, 17268097, 1847784, [id number] ####[facility] (DEFAULT)[address] [place] [address] 94154 Osmolality 291 mOsm/L Invalid Interpretation Code [facility] Comment on above: Performed By: #### 2 [id number], 4852215, 1888271, 16472377, 0925790, [id number] ####[facility] (DEFAULT)[address] [place] [address] 34234 Potassium [Moles/Vol] 4.4 mmol/L Normal 3.6-5.1 [facility] Comment on above: Performed By: #### 2 [id number], 9403696, 8011752, 25184044, 6697241, [id number] ####[facility] (DEFAULT)[address] [place] [address] 43329 Sodium [Moles/Vol] 134.0 mmol/L Low 136.0-144.0 [facility] Comment on above: Performed By: #### 2 [id number], 4194519, 5702114, 52239335, 0130038, [id number] ####[facility] (DEFAULT)[address] [place] [address] Urea nitrogen [Mass/Vol] 40 mg/dL High 8- [facility] Comment on above: Performed By: #### 2 [id number], 9882693, 1642910, 99124690, 5305077, [id number] ####[facility] (DEFAULT)[address] [place] [address] Urea nitrogen/Creatinine [Mass ratio] 20.7 mg/mg High 4.6-16.2 [facility] Comment on above: Performed By: #### 2 [id number], 7965293, 3593528, 14575605, 4550432, 1417993777 ####[facility] (DEFAULT)[address] [place] [address] 19365 CBC w/ Auto Diffon Erythrocyte distribution width (RBC) [Ratio] 14.0 % Normal 11.5-15.0 [facility] Comment on above: Performed By: #### 2 [id number], 8397016, 4238764, 37173394, 9315666, 3968822715 ####[facility] (DEFAULT)[address] [place] [address] 06299 Hematocrit (Bld) [Volume fraction] 43.5 % Normal 34.8-51.9 [facility] Comment on above: Performed By: #### 2 [id number], 1168196, 6410697, 98639706, 9001816, 1094020983 ####[facility] (DEFAULT)[address] [place] [address] 21331 Hemoglobin (Bld) [Mass/Vol] 14.3 g/dL Normal 11.8-17.7 [facility] Comment on above: Performed By: #### 2 [id number], 1572102, 0658964, 23113833, 2464558, [id number] ####[facility] (DEFAULT)[address] [place] [address] MCH (RBC) [Entitic mass] 30 pg Normal 24-34 [facility] Comment on above: Performed By: #### 2 603400852, 4717450, 9743778, 84682151, 3285182, [id number] ####[facility] (DEFAULT)[address] [place] [address] MCHC (RBC) [Mass/Vol] 33 g/dL Normal 26-37 [facility] Comment on above: Performed By: #### 2 450291868, 9218162, 7266078, 76343787, 5186593, 3764472824 ####[facility] (DEFAULT)[address] [place] [address] MCV (RBC) [Entitic vol] 93 fL Normal 81-100 [facility] Comment on above: Performed By: #### 2 [id number], 1983711, 8493603, 35111374, 8627724, 0822475839 ####[facility] (DEFAULT)[address] [place] [address] Platelet 185 x10 Normal 138-427 [facility] Comment on above: Performed By: #### 2 221013444, 6783826, 4144001, 44438952, 1882019, 2238898140 ####[facility] (DEFAULT)[address] [place] [address] Platelet mean volume (Bld) [Entitic vol] 7.9 fL Normal 6.3-10.2 [facility] Comment on above: Performed By: #### 2 194388941, 6787162, 1316733, 07478078, 6377112, 3125678315 ####[facility] (DEFAULT)[address] [place] [address] RBC 4.70 x10 Normal 3.70-5.30 [facility] Comment on above: Performed By: #### 2 [id number], 8516498, 7071736, 44409077, 1921129, 5554077261 ####[facility] (DEFAULT)[address] [place] [address] WBC 5.4 x10 Normal 3.5-10.5 [facility] Comment on above: Performed By: #### 2 141839676, 6180159, 0537951, 95999492, 5509267, 0429261261 ####[facility] (DEFAULT)[address] [place] [address] Man Diff? Auto Invalid Interpretation Code [facility] Comment on above: Performed By: #### 2 445191552, 8523400, 9290519, 81673258, 5251844, [id number] ####[facility] (DEFAULT)[address] [place] [address] CRPon 05-11-2024 CRP 1.6 mg/dL High <=0.5 [facility] Comment on above: Performed By: #### 2 [id number], 3697400, 1702238, 83687747, 7046672, [id number] ####[facility] (DEFAULT)[address] [place] [address] ED Clinical Summaryon 2023 ED Clinical Summary [facility] - Emergency Department [address] [place] [address] ED Clinical Summary PERSON INFORMATION Name: SILVIO CROWELL Age: 58 Years Sex: MALE : 1965 MRN: Acct#: Visit Reason: Wound infection; WOUND CARE Arrival: 05/11/2024 14:45:07 Discharge: 05/11/2024 18:02:00 LOS: 000 03:17 Check In: 05/11/2024 14:45:07 Checkout:05/11/2024 18:02:00 Address: [address] [place] [address] PCP: Balwinder Miller MD PROVIDER INFORMATION Provider Role Assigned Unassigned Kimberly Jones MD ED Provider 05/11/2024 14:47:09 Pratibha Mejia INPATIENT NURSING AIDE Nurse 05/11/2024 15:07:27 VITALS INFORMATION Vital Sign [...] Follow-Up: With: Address: When: Balwinder Miller MD [address] [place] [address] Within 3 to 5 days DIAGNOSIS: 1:Chronic venous stasis; 2:Diabetic coma Patient Understands: Yes - Patient/family/caregi shalini verbalizes understanding of instructions given Comment: [facility] ED Clinical Summary [facility] ? Urgent Care [address] [place] [address] Clinical Summary PERSON INFORMATION Name: SILVIO CROWELL Age: 58 Years Sex: MALE : 1965 MRN: Acct#: Visit Reason: Skin problem; WOUND EVAL Arrival: 05/11/2024 14:13:36 Discharge: 05/11/2024 14:40:00 LOS: 000 00:27 Check In: 05/11/2024 14:13:36 Checkout: 05/11/2024 14:40:00 Address: [address] [place] [address] PCP: Balwinder Miller MD PROVIDER INFORMATION Provider Role Assigned Unassigned Ian Lynn ED PA 05/11/2024 14:18:35 Audelia Pool INPATIENT NURSING AIDE Nurse 05/11/2024 14:30:10 VITALS INFORMATION Vital Sign [...] right lower extremity Patient Understands: Comment: Normal [facility] ED Patient Summaryon 024 ED Patient Summary [facility] - Emergency Department [address] [place], [place] [id number] PATIENT DISCHARGE INSTRUCTIONS Patient Information Name: SILVIO CROWELL Age: 58 Years Date of : 1965 Reason For Visit: Wound infection; WOUND CARE Arrival Time: 05/11/2024 14:45:07 Primary Care Physician: Balwinder Miller MD Attending Physician: Kimberly Jones MD Comment: Visit Diagnosis: Diagnoses This Visit Chronic venous stasis (I87.8) Diabetic coma (E11.69) Wound infection ([id number]) The Pharmacy at [facility] is open Tuesday through Tuesday from [...] alcohol and/or drug addiction problems; contact the [facility] 11/04 Crisis Hotline -Text 6YIDD ta 688217. If you received any narcotics, sedation, or [...] sign any legal documents With: Address: When: Balwinder Miller MD [address] [place] [address] Within 3 to 5 days Medication Information: The exam and treatment you received today in the [facility] Emergency Department were for an urgent problem and are not intended as complete care. It is important for you to follow up with a doctor, nurse practitioner, or physician?s railway yard assistant for ongoing care. If your symptoms [...] so we can reach you if necessary. [facility] Emergency Department has provided you with a complete list of medications post discharge. Please inform your technology instructor/provider of your visit and for further instruction on these medications. Any specific questions regarding your chronic medications and dosages should be discussed with your primary care physician(s) and/or pharmacist. New Medications [facility] [id number], [address], [place] [id number], [phone] cephalexin (cephalexin 500 mg oral capsule) 1 [...] air Measu (more content not included)... Normal [facility] ED Patient Summary [facility] ? Urgent Care [address] [place] [address] PATIENT DISCHARGE INSTRUCTIONS Patient Information Name: SILVIO CROWELL Age: 58 Years Date of : 1965 Reason For Visit: Skin problem; WOUND EVAL Arrival Time: 05/11/2024 14:13:36 Primary Care Physician: Balwinder Miller MD Attending Physician: Ian Lynn Comment: Patient Education Medication Information: The exam and treatment you received today in the [facility] Emergency Department were for an urgent problem and are not intended as complete care. It is important for you to follow up with a doctor, nurse practitioner, or physician?s railway yard assistant for ongoing care. If your symptoms [...] so we can reach you if necessary. [facility] Emergency Department has provided you with a complete list of medications post discharge. Please inform your technology instructor/provider of your visit and for further instruction [...] with fat layer exposed. (T14.8XXA) Skin problem ([id number]) If you received any narcotics, sedation, or [...] during y (more content not included)... Normal [facility] Extra [place] 05-11-2024 Tube Collected Yes Invalid Interpretation Code [facility] Comment on above: Performed By: #### 2 [id number], 2908293, 7678147, 73406512, [id number], [id number] ####[facility] (DEFAULT)[address] [place] [address] Sed Rateon 05-11-2024 Sed Rate 33 mm/hr High 0-15 [facility] Comment on above: Performed By: #### 2 [id number] ####[facility] (DEFAULT)[address] [place] [address] Urgent Care Recordon 024 Urgent Care Record [facility] ? Urgent Care [address] [place] [address] PATIENT DISCHARGE INSTRUCTIONS Patient Information Name: SILVIO CROWELL Age: 58 Years Date of : 1965 [facility]: [id number] Reason For Visit: WOUND EVAL Arrival Time: [...] and treatment you received today in the [facility] were for an urgent problem and are not intended as complete care. It is important for you to follow up with a doctor, nurse practitioner, or physician?s railway yard assistant for ongoing care. If your symptoms [...] so we can reach you if necessary. [facility] has provided you with a complete list of medications post discharge. Please inform your technology instructor/provider of your visit and for further instruction [...] strep) NO Flui (more content not included)... [facility] XR Tibia/Fibula 2 Views Rig ton 05-11-2024 XR Tibia/Fibula 2 Views Right EXAM: [...] MD 05/11/24 5:00 pm Technologist: Edith MEYER [facility] Outside Recordson 04-13-2024 Outside Records [id number] [facility] Coding Summaryon 03-09-2024 Coding Summary HTMLBase 64 InyjufulPGs9uIy+PGhlY WQ+FS3BZQKdV96adMXspU 1vM1YLRWfYFvqiQJPLTBg RWyNftzKwKL1tuHDeJBXk IC8+DP9nQDKdVqhsgADon 9K9nII5H66ixl6xYYxosJ Y2YVKmCqSqhjgoc4svnGk 6IDcuNmluOyBt UHQbfS49AVN3xP73Kg56i KHrtVTav3jrhXa5EeTtVV YaFWB7mEkmYNjde0GaRBR cW41uvKUlx4M7 PSAuyYkzvOKiTmYcjXV0e T1kBNeubhfrb2gkjxisRp a7kp01gRDlb5N4yBY0F3H qsqZ5YXRpvXOb HhqmoHJNjE2pehpys6vkp zdsNdWdWJKmLKc4UXz4XD GehBziWiXlGG40ACN4ZXZ jwqSzZ2EzLGZm gPayYyE1x4N5Px3EG9NJB pftY8PQWWQELHbajKC+PC 33fk59K7KcXjisEon4RES lAZC8vNX9zX5y IVSpEUjhp9Q6zMP0E0Sgx iVaep6ka8bpLKHdCLicZ7 4reSFhs1E8AQBusOV4URE puAuvHwXrgF46 Oyc+NJLfpKwfq0UzWhygf 7znj4gtiOq2YhsjKLPhzj EnjKpnXXJ2g1CiNv6cSZA zkVM9yIE6oD2e PzRsXqQ0WPnlP675CdDbd QFvLmyqW52aB5QpjSR+PH WyQrj9PVRvlKyiYU1cN1C hZGRpbmctbGVm cZklVT6jGPQynjqlKBDra F2pUOTuR9g7LtXdTiE8RD guJ6FzUBXdnsdcSy22eJ5 xQcVuRaE3ARma B4YrmdO3ZXBgxNEiCJyvH EL8Z81oj7K3DZQzYUZpWC Z6mQL1xD7ylIyrvvhqkRU mdDsgdmVydGlj ZRglKKvwF262PUYpjImvL kNvZGluZyBEYXRlOiAgMD YvMjEvMjAyNDwvdGQ+PHR cLRI1fPfyLAGa fWVvYOiaHi9xwNkzpRbkE F9yYCEljwdqYORnvS0qQL CdmUQxgNkxVB0zKGYuxux ng444HvAsJYT2 HOGfnTNnL2CwsS5qQtWjG DIdQTWeL2UcxAKhZDwlZ7 71IEueXxX4ANDxfgHzQ8Z sLWFsaWduOiB0 h6H9Ds3Dh9TebrxwN3Ezr ODjVkYqCuofNKb7F8TeNb wvdHI+MP24JPCwNB15ZMp 4ZCJ7eZnbTZlj JNSwR1FxtA1xTdCdTXWvA GRkOyc+PHRhYmxlIHdpZH RoPScxMDAlJyBzdHlsZT0 nCb3eRVTzGNHg gBulwTDsXqVtx7beJTPyA GltSN2mbVytD2KttJV7BV Hva9h7Ia79O13tG5YieUI +GCOqqGJ1aVO5 dB6mRuJxBqV1FIykS259D kSyjHDjUfhmu6bsh4rdlJ e2NkF7KVStojTywRbvSAG 5x0NzOt43U74t IHdpZHRoPSIxNSUiIHZhb Qhwcc4hhU8kZd0+PGNvbC X5dVM2qY3iMmAwBtQ6AIy oZ766YzWdrFTn Katut9dch0kozHs6IeVjO TJgrmXqmSwhZJH4r8LyYr 90H1LfdKxyw6OcOnv3fa2 2cVKlv1D5mLG0 U0ZwYYEdoladiKWkzJwxP J6pFDSfswcmBVLapR8zMF YqO4n4TaGlFaQ7KJhcP8Z qiiO5XVUqdKMi CRXkhODFsR8auqqcp0rsc plsMmBnHIInRFt6HYc7KC XsjQvkFtZbLEU5RzO3REZ 1yRTzzG3uxCio rtmulF4cNpe+QXG0gKEen DMSEO4yUrssxFW+PHRkIH W8vPpkBLgxSCCagC4qAEQ mO3d2CwAyUiS2 FPrgW1OiojU3VKMmaUUhR QQltYZXzN4mnomxk3pnlj evYqYpLEKwNYe3OHf1PUZ saWduOiBsZWZ0 EsD2NVA6mJWftB5jaZiwy yayjA6oSsn+QmlydGggRG B4FCf4E9FfAbz6BDNvhZt tST6enILdWNhv Lg2usDhlyPdcFF0dUXSqy lxxn923QyCex2lkWEHafV UyFXdySUU9E58bg5N2CNO sXVSjONT5iCQ3 yB8suNvcxmzbtGLtjGcji aZpxBvrAIyhKKliQ567DD WgxNbnExArFVx8G9PeAjx 3FVZxsLnoGT2z jWJcYKfiAi7nmTisdJusQ L0aOREomloch670YxMkt5 tdBOOehNHbGMiqICY1E05 vs2O1MUSaLYJy AIU6bPG1vG0xuJjykfkhg GVmdDsgdmVydGljYWwtYW tdO842WHSgnCwyUqCenHg 5P5XqUee0HXHz iHfeQI2zxOOsWBkvPw9kg VzdrGbiFO6iVTXcrfvsw1 81KrEbn2mvQHAztAAxCUt nJLE8V32bn4S7 DTCwFQCcIDF2eDD3rH8he GlnbjogbGVmdDsgdmVydG tuPRimUMqiJ160ESRgtMq nPlBhdGllbnQg WPtoOAs3A4LkGhesiPC+P O28NNEaBO29tMJtwZDib7 iyuHc7JpGyJLNwIOC6pSn cHXusj8SwFRAb Z97yvVSbw2Z2HKEmnNsig QBrWgZtmUR9jK1oLTbkur msa0jkludzBlkdu4gpsf9 7jY07L86aSGtt ZHRoPSIzMCUiIHZhbGlnb y3gvE6rKg0+WGIvdOY2pG J3tK1hSGHqTfZ3KHgcX67 9InRvcCIvPjxj a9ijp3newQm9MvR0KOVih kBxpQaePCF3b8ZmZr57Q6 9sIHdpZHRoPSIyMCUiIHZ fnOysbl3cbS7n Ii8+XKXhuSW8xOD2hY9kM gGpNiC2FYkpY977MoMbhI NuMrbeO35rI3ItwXQ+PHR wOdf3ZOLuaMdj RY1mfLTrMIfjSa8nTDL7H sCpSnYhWXugV6EoMOKfey efueomyMG6IQMbIBBkkV3 1Qf3uvObfRQZq zIWZiT1weghxb8culyheR oHoVYGoUBt5ZYb6ORBprR atVyLoMGL2XeU3FLF7fZR bdD2tlYsfiadu wN7kM7XkPDUvryljOw74i L1gFbZtCtC5MCrtElw+U0 RRHTXMYvrwQYUEV3zyFUm SYE79X7ZbOmw3 CIYmtZkwSN5yfAVaQZwtL r7tuRcbeUhxPA7kMWVngh clNKOlpM7sPOKomXXftXb cOZ0xCBXbcgxv r746GuYfXFZ1UMAmlWGsN 1KghF6pYzEePIXaEIRpX8 OjiLFzWMfxX225SFcbFtI 9AWXuvjVmX8Bd UTQkqUapHdG5e4R9Dy3qK y4hRH3iHGT7WF16FG29gZ Dxk8A4vIM6I3QgMIVaocy xyzdgoTF4VZVg CRIjkY02uYZnFOqgIl4yt 7H2w006ESBbUFLwyG63Xp 1opBefXATxeAYJhP8ooqg lp0jixkieOwFv VOKmFTa0DUc8WMVlaAmpL kQrKRN2LlL0DCL8nQFkzI 3lfMdhvgdstH3wNhy+NTk qJHHkdoN0P2Co Jah3ICXgzVpdNG9foDKpJ RmzKg8ntZodfSzoFD7gPV BuloiiDIDewL5sXXBkjKX ueRslZN9dUDOm symom045PfNfOJQ4WNWci GFdX0MtfO9qTtKtZZPhRT TfF0DwiQQhCMtvK454WCr rVpY4GGTifpBz F8WmBIYhcLajMoY2h4R6C u1FLJpLIF01YU20cPHel0 A4aOC8J2PyCHJvmwccotz thEC5FDQhWVSb nW26iKYbBFucEv6gw5D7n 764IEDsJBYonL19Cm3ncC eiCYBglSFFaB5urgeta2u vcjogIzAwMDAw JAs7RAl3SLXftQaaVxOkQ DA6WtU6LGC4wVEqyE0rxM xetzdkwM3rOrf+L8Q0Y4D kPjwvdHI+PC90 ZFZoAF01sQLhmRFzy8bxb Ih3JhOyFSSyPRQ5qXfgID doc9PpYAFaB96yzZCou5D 6IGNvbGxhcHNl JvLikCH0aJ9gDPzogybjh 2nnwtzqBmtau6ftck92fE 05X27aUCdoOMRiRNRxQTT eMZPehBrewn1z zA0qIl6+NDPopDB4mUP5r E3lTcPwHtW5SRwrZ100Cc GhvHQmZajpr6mzz2sngTh 9IjIwJSIgdmFs bOlaEPL2p1BlLt44A17cM HdpZHRoPSIyMCUiIHZhbG rlro1brL5qGf0+JM7ui0u vku94nL49oSI+ TMWrCHF4yZgvLFksQKApu I1gFBgbUwJ8XXKiJcMhpS 22zSXyIYriLf8bwWppbNq lGZ2kIYYjjalq t686QuZle0sjLLHdkNWrM UlbSHX8H04ub7L0VATrWL OlWMD0yDK8oQ9rwUdmfxa gbGVmdDsgdmVy cXxtDVqvQTipY917QERoy FojIbAazOFqP3ogryFRVQ 1lOjwvdGQ+SKBsNYG6kCt bYVqrPCOrnZ5c VHWfF4x6RfQtVzZ3CWdtI 9YatmY5VZWuaATcFMWinO IXfP6mtxhte2ipwjqfDyW nYHGbFXa9APn0 YKGllOpcUaWfCNB9SrH8F RJ3iFVbmG6lcSjaivpqvU 9wOyc+RklOOjwvdGQ+PHR vDBL9yJazOZrq DXSbyD0nVFCuW8l1EaVgM iJ3HFnzG2PjrjU9BQMjtC YnKOSfdYCIwD8ebxykz3z vcjogIzAwMDAw ZRm5TAf2UBSkxFqqDkJfU VX1FyM2FXW2yFCqcX8boF hapdhsvP8vVil+TVJOOjw vdGQ+PHRkIHN0 mIwwGDvaIQAkzR2oWNFxH 4a3YbRgIbX8DQsoZ4Zxxm G6MGVhtIRkEKDzkAMHrK3 htrsxg7tznhoc JwIuFQUtIOj3NIv7EBGpn GrmPhDaNRV4NhK6QBK4eT JmuU9tvXdkzlafeI9hJlz +IVA0VEU5EP19 OC06H7VjUzqqpYCbbBQ+P HRhYmxlIHdpZHRoPScxMD YjVyFivEuiOK0fLa3aYQO yLWNvbGxhcHNl OiB (more content not included)... [facility] Office/Clinic Noteon 024 Office/Clinic Note Patient: SILVIO CROWELL MRN: Age: 58 years Sex: MALE : 1965 [...] 135.620 kg Body Mass Index 39.63 kg/m2 [place] Body Weight Calculated 79.52 kg BSA Measured [...] open area.. Impression and Plan Diagnosis Diabetes ([id number] E11.9). Plan: Will resend his Farxiga and glimepiride to the pharmacy to get him back on medication. Will have follow-up in 3 months we will recheck his A1c at that time. Also discussed with him ab (more content not included)... [facility] Office/Clinic Noteon 024 Office/Clinic Note Patient: [...] 135.440 kg Body Mass Index 39.57 kg/m2 [place] Body Weight Calculated 79.52 kg BSA Measured 2.64 m2 General: Alert and oriented, No acute distress. Respiratory: Lungs are clear to auscultation, Respirations are non-labored, Breath sounds are equal. Cardiovascular: Normal rate, Regular rhythm, No murmur, +2 edema of the legs bilaterally. Positive bullae on the right anterior martinez.. Impression and Plan Diagnosis Diabetes (YIX25-QF E11.9). Plan: Will increase his Ozempic to 0.5 mg weekly. New prescription sent.. Orders Orders Evaluation and Management: 33438 Office visit - established pt, Level 3 (Order): 10/03/2023 13:43 EST, Qty: 1, Diabetes - Pedal edema. Diagnosis Pedal edema ([id number]-WN R60.0). Course: Discussed with patient the importance of taking his medication daily. It would help preventing the edema and therefore the blisters in his legs. Also wear compression stockings would be beneficial.. [Electronically Signed on: 10/03/2023 14:20 EST] Balwinder Miller MD [Verified on: 10/03/2023 14:20 EST] Balwinder Miller MD A [facility] Outside Recordson 08-25-2023 Outside Records [id number] .[id number] [facility] Outside Recordson 08-23-2023 Outside Records [id number]# [id number] [facility] Office/Clinic Noteon 023 Office/Clinic Note Patient: [...] 300.203 lb Body Mass Index 39.79 kg/m2 [place] Body Weight Calculated 79.52 kg BSA Measured [...] feet. No (more content not included)... [facility] Creatinine W/GFR Point of Ca reon 11-21-2020 Creatinine [Mass/Vol] 1.81 mg/dL High 0.51 - 1.19 mg/dL [employer] Phone: GFR Non- 39 mL/min Low >60 [employer] Phone: GFR/1.73 sq M predicted among non-blacks MDRD (S/P/Bld) [Vol rate/Area] 47 mL/min/{1.73_m2} Low >60 [employer] Phone: GFR/1.73 sq M predicted among non-blacks MDRD (S/P/Bld) [Vol rate/Area] [employer] Phone: Comment on above: Average GFR for 50-5 9 years old: 93 mL/min/1.73sq m Chronic Kidney Disease: <60 mL/min/1.73sq m Kidney failure: <15 mL/min/1.73sq m eGFR calculated using average adult body mass. Additional eGFR calculator available at: http://www.[employer]/multiple_crcl_2012.htm Interpretation and review of laboratory results Abnormal [employer] Phone: MRI BRAIN W WO CONTRASTon MRI [...] MD 11/21/20 Final result Normal [facility] Minimal chronic microvascular disease without acute intracranial abnormality. No abnormal postcontrast enhancement. [employer] Phone: EXAMINATION: MRI OF THE BRAIN WITHOUT [...] The soft tissues demonstrate no acute abnormality. [employer] Phone: Don, Mhpn Incoming Radiant Results From [employer] - 11/21/2020 12:08 PM EST EXAMINATION: MRI [...] acute intracranial abnormality. No abnormal postcontrast enhancement. [employer] Phone: Vital Signs Date Time Vital Sign Value Performing Clinician Pritesh rendon 11-21-2020 11:35-0500 Pulse (Heart Rate) 75 /min [facility] [employer] Phone: 11-21-2020 11:35-0500 Pulse Oximetry 95 % [facility] Phone: Encounters Encounter Date Encounter Type Care Provider Facility Start: 07-27-2024 End: 07-27-2024 ambulatory Balwinder Miller Facility:[facility] Start: 07-26-2024 ambulatory Breanne Norman Facility :[facility] Start: 07-20-2024 End: 07-20-2024 ambulatory Morgan R Dolce Facility:[facility] Start: 07-09-2024 End: 07-09-2024 ambulatory Morgan R Dolce Facility:[facility] Start: 06-29-2024 End: 06-29-2024 ambulatory Morgan R Dolce Facility:[facility] Start: 06-19-2024 ambulatory Dominick [facility] Facility :[facility] Start: 06-07-2024 End: 06-07-2024 ambulatory Maria L Hand Facility:[facility] Start: 06-07-2024 End: 06-07-2024 ambulatory Balwinder Miller [facility] Start: 06-04-2024 ambulatory Morgan R Dolce Facility :[facility] Start: 05-31-2024 End: 05-31-[address] [facility] Facility:[facility] Start: 05-25-2024 [facility] Start: 05-17-2024 End: 05-17-[address] [facility] Facility:[facility] Start: 05-11-2024 End: 05-11-2024 Emergency department patient visit Kimberly Jones Facility:[facility] Start: 05-11-2024 End: 05-11-2024 ambulatory Balwinder Miller Facility:[facility] Start: 02-08-2024 End: 02-08-2024 ambulatory Balwinder Miller [facility] Start: 01-02-2024 End: 01-02-2024 ambulatory Balwinder Miller Facility: [facility] Start: 10-03-2023 End: 10-03-2023 ambulatory Balwinder Mliler Facility: [facility] Start: 08-03-2023 End: 08-03-2023 ambulatory Balwinder Miller Facility: [facility] Start: 11-21-2020 End: 11-21-2020 Subsequent hospital visit by physician Yeimi Castro Rn [facility] Special Procedures Start: 11-21-2020 End: 11-24-2020 Patient encounter procedure GRETA GONZALEZ [facility] Start: 11-21-2020 End: 11-23-2020 Subsequent hospital visit by physician Yeimi Mri Rm 1 (1.5t) [facility] Comment on above: Tremor Start: 04-15-2018 End: 04-16-2018 Patient encounter SABINASONIA KATELYN [facility] Procedures Date Procedure Procedure Detail Performing Clinician Start: 11-21-2020 Mri brain brain stem w/o w/contrast material Greta Sharma Carlos Work Phone: Start: 11-21-2020 CREATININE W/GFR POI NT OF CARE Greta Gonzalez Work Phone: Start: 04-15-2018 Echo tthrc r-t 2d w/wom-mode compl spec&colr d RORY KATELYN Start: 04-15-2018 ECHO COMPL W DOP COL OR FLOW RORY ZEPEDA Plan of Treatment Date Care Activity Detail Author Start: 11-21-2021 Creatinine measurement Creatinine monitoring [employer] Phone: Start: 05-20-2020 Influenza vaccination Flu vaccine (#1) [employer] Phone: Start: 01-19-2020 Potassium monitoring Potassium monitoring [employer] Phone: Start: 03-11-2019 Annual Wellness Visit (AWV) Annual Wellness Visit (AWV) [employer] Phone: Start: 12-26-2018 Lipid panel Lipid screen [employer] Phone: Start: 11-13-2018 HbA1c (Bld) [Mass fraction] A1C test (Diabetic or Prediabetic) [employer] Phone: Start: 11-13-2018 TSH Qn TSH testing [employer] Phone: Start: 2014 Screening for malignant neoplasm of colon Colon cancer screen colonoscopy [employer] Phone: Start: 2014 Shingles Vaccine (1 of 2) Shingles Vaccine (1 of 2) [employer] Phone: Start: 1983 DTaP/Tdap/Td vaccine (1 - Tdap) DTaP/Tdap/Td vaccine (1 - Tdap) [employer] Phone: Start: 1983 Hepatitis B vaccine (1 of 3 - Risk 3-dose series) Hepatitis B vaccine (1 of 3 - Risk 3-dose series) [employer] Phone: Start: 1982 Diabetic microalbuminuria test Diabetic microalbuminuria test [employer] Phone: Start: 1979 HIV screening HIV screen [employer] Phone: Start: 1974 Diabetic foot examination Diabetic foot exam [employer] Phone: Start: 1974 Diabetic retinal exam Diabetic retinal exam [employer] Phone: Start: 1970 Pneumococcal 0-64 years Vaccine (1 of 1 - PPSV23) Pneumococcal 0-64 years Vaccine (1 of 1 - PPSV23) [employer] Phone: Start: 1965 Hepatitis C screening Hepatitis C screen [employer] Phone: Payers Date Payer Category Payer Medicare [id number] 2021 Private Health Insurance [id number] 2017 Private Health Insurance [id number] 2014 Medicare [id number] 1965 Unknown [id number] 2.16.8 40.1.858377.3.579.2.175 1965 Unknown [id number] 2.16.8 40.1.095618.3.579.2.718 1965 Unknown [id number] 2.16.8 40.1.724954.3.579.2.718 1965 Unknown [id number] 2.16.8 40.1.823124.3.579.2.718 1965 Unknown [id number] 2.16.8 40.1.868885.3.579.2.718 1965 Unknown [id number] 2.16.8 40.1.344517.3.579.2.8 1965 Unknown [id number] 2.16.8 40.1.631509.3.579.2. 1965 Unknown [id number] 2.16.8 40.1.102913.3.579.2. 1965 Unknown [id number] 2.16.8 40.1.851836.3.579.2. 1965 Unknown [id number] 2.16.8 40.1.510975.3.579.2. 1965 Unknown [id number] 2.16.8 40.1.022629.3.579.2. 1965 Unknown [id number] 2.16.8 40.1.074159.3.579.2. 1965 Unknown [id number] 2.16.8 40.1.888500.3.579.2. 1965 Unknown [id number] 2.16.8 40.1.134018.3.579.2. 1965 Unknown [id number] 2.16.8 40.1.021015.3.579.2. 1965 Unknown [id number] 2.16.8 40.1.222993.3.579.2. 1965 Unknown [id number] 2.16.8 40.1.450033.3.579.2. 1965 Unknown [id number] 2.16.8 40.1.759704.3.579.2. 1965 Unknown [id number] 2.16.8 40.1.181317.3.579.2. 1965 Unknown [id number] 2.16.8 40.1.556392.3.579.2.8 Social History Date Type Detail Facility Start: 11-19-2020 Tobacco smoking stat [facility] Former smoker [employer] Phone: Start: 11-19-2020 Tobacco use and exposure Never used [employer] Phone: Start: 11-19-2020 Alcohol intake Current non-dr edge inker of alcohol (finding) [employer] Phone: Sex Assigned At Not on file [employer] Phone: Medical Equipment Procedure Code Equipment Code Equipment Origin al Text Equipment Identifier Dates Use three times a day [id number] Start: 11-22-2017 Clinical Note 05-11-2024 Note Date [...] reduce swelling in your legs. ? Take [id number] and prescription medicines only as told by [...] need. This informat (more content not included)... [facility] Clinical Note 05-11-2024 Note Date & Type Note Facility 05-11-2024 Note Patient Education Materials Foll ows: [facility] Medication management note 09-26-2023 Note Date & Type Note Facility 09-26-2023 Note Entered by FOSTER SOLANO on September 26, 2023 09:35:50 EST From: FARHANA SOLANO To: [id number] Sent: 09/26/2023 09:35:50 EST Subject: Medication Management Submitted: Complete:dapagliflozin (Farxiga 10 mg oral tablet) Signed by FARHANA SOLANO 09/26/2023 09:35:00 EST Approved with modifications: dapagliflozin (FARXIGA 10 MG TABLET) take 1 tablet by mouth once daily Qty: 30 tab(s) Days Supply: 30 Refills: 3 Substitutions Allowed Route To Pharmacy - [facility] #[id number] Signed by FARHANA SOLANO From: [id number] To: Balwinder Miller MD Sent: September 24, 2023 8:55:24 AM ACTUARIAL TRAINEE Subject: Medication Management Due: September 25, 2023 12:23:24 AM ACTUARIAL TRAINEE On Hold Pending Signature Drug: dapagliflozin (Farxiga 10 mg oral tablet), take 1 tablet by mouth once daily Quantity: 30 tab(s) Days Supply: 30 Refills: 4 Substitutions Allowed Notes from Pharmacy: Dispensed Drug: dapagliflozin (Farxiga 10 mg oral tablet), take 1 tablet by mouth once daily Quantity: 30 tab(s) Days Supply: 30 Refills: 0 Substitutions Allowed Notes from Pharmacy: [facility] Summary Purpose Family History No Family History Records FoundNo Family History Records FoundNo Family History Records Found Advance Directives No Advanced Directives Records FoundDocuments on File Type Date Recorded 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 anation ACP-Advance Directive ACP-Power of Vacuum Worker Latest Code Status on File Code Status Date Activated Date Inactivated Comments Full Code 01/18/2019 9:29 PM 01/19/2019 4:12 PM Full Code 01/18/2019 3:08 PM 01/18/2019 9:29 PM Full Code 09/20/2018 10:02 AM 09/21/2018 2:37 AM Full Code 12/26/2017 10:02 PM 12/27/2017 4:44 PM Full Code 12/26/2017 11:10 AM 12/26/2017 9:52 PM Documents on File Type Date Recorded 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 Was in MRI before technical writer was present. [employer] rep has [...] section and content) DATE CREATED AUTHOR 04/16/2018 [facility] DATE CREATED AUTHOR AUTHOR'S ORGANIZ ATION 11/24/2020 [facility] DATE CREATED AUTHOR AUTHOR'S ORGANIZ ATION 08/03/2024 [facility] Reason for Visit (unrecogniz ed section and content) Status Reason Specialty Diagnoses / Procedures Referred By Contact Referred To Contact Closed Radiology Diagnoses Tremor Procedures MRI BRAIN W WO CONTRAST Greta Gonzalez, DO [address] [place] [address] FOR RECORDS PERTAINING TO PATIENTS WHO ARE [...] BE BASED ON THE PRIMARY CLINICAL RECORDS. [employer] provides no warranty or guarantee of the accuracy or completeness of information in this document.
== END 2024-08-06 13:21 | disposition home or self-care (01) ==
LOC: VC 12:54
PROVIDERS: PCP Radiology Diagnostic Radiology; Visit Provider Radiology Diagnostic Radiology
DX: I83.813 Varicose veins of bilateral lower extremities with pain (principal)
CPT/HCPCS: 36478

== ENCOUNTER 2024-08-14 11:07 | Outpatient (OUT) | payer OTHER, SELFPAY ==
--- NOTE | 2024-08-14 07:38 | VEINCLINIC_ITS ---
Varicose Veins Patient in this day for follow up ultrasound post EVLT of right SSV Jone Willson MD personally performed the services described in this documentation, as scribed by Samira Mcguire RVT, RDMS in my presence and it is both accurate and complete. Anamika, Samira Mcguire RVT, RDMS, am scribing for, and in the presence of, Dr. Jone Vallejo and in the presence of the patient. Review of Systems ROS Narrative I, Jone Vallejo MD personally performed the services described in this documentation, as scribed by Samira Mcguire RVT, RDMS in my presence and it i s both accurate and complete. I, Samira Mcguire RVT, RDMS, am scribing for, and in the presence of, Dr. Jone Vallejo and in the presence of the patient. Status of ROS 10 or more systems reviewed and unremark able except as noted in history and below Cardiovascular Reports: edema Integumentary/Breast Reports: itching, redness, skin pain, skin tenderness, skin swelling, new lesion, changing lesion, non-healing lesion and changes in skin color Neurological Reports: numbness in extremities and weakness in extremities [facility]SH [facility] Medical History (Updated 08/06/24 @ 13:20 by Myron Mina) Phlebitis of superficial vein of right lower extremity ?I80.01 - Phlebitis and thrombophlebitis of superficial vessels of right lower extremity (ICD-10) Phlebitis and thrombophlebitis of superficial vessels of right lower extremity ?I80.01 - Phlebitis and thrombophlebitis of superficial vessels of right lower extremity (ICD-10) Hernia ?K46.9 - Unspecified abdominal hernia without obstruction or gangrene (ICD- 10) Heart attack ?I21.9 - Acute myocardial infarction, unspecified (ICD-10) Bilateral leg edema ?R60.0 - Localized edema (ICD-10) Pain due to varicose veins of both lower extremities ?I83.813 - Varicose veins of bilateral lower extremities with pain (ICD-10) COPD (chronic obstructive pulmonary disease) ?J44.9 - Chronic obstructive pulmonary disease, unspecified (ICD-10) Advanced cardiac disease ?I51.9 - Heart disease, unspecified (ICD-10) CHF (congestive heart failure) ?I50.9 - Heart failure, unspecified (ICD-10) Ulcerated leg varices ?I83.009 - Varicose veins of unspecified lower extremity with ulcer of unspecified site (ICD-10) ?L97.909 - Non-pressure chronic ulcer of unspecified part of unspecified lower leg with unspecified severity (ICD-10) Neuropathy ?G62.9 - Polyneuropathy, unspecified (ICD-10) Diabetes ?E11.9 - Type 2 diabetes mellitus without complications (ICD-10) Surgical History (Updated 08/06/24 @ 13:23 by Myron Mina) Status post laser ablation of incompetent vein ?Z98.890 - Other specified postprocedural states (ICD-10) Status post laser ablation of incompetent vein ?Z98.890 - Other specified postprocedural states (ICD-10) H/O gastric sleeve ?Z90.3 - Acquired absence of stomach [part of] (ICD-10) H/O hernia repair ?Z98.890 - Other specified postprocedural states (ICD-10) ?Z87.19 - Personal history of other diseases of the digestive system (ICD-10) Family History (Updated 07/02/24 @ 10:43 by Myron Mina) Other Family history of cancer Heart disease Hypothyroid Social History (Updated 07/03/24 @ 13:38 by Myron Mina) Within the past year, how often did you have a drink containing alcohol: monthly or less Smoking status: Former smoker Non-prescribed substance use: denies use Meds Home Medications and Allergies Home Medications ?Medication ?Instructions ?Recorded ?Confirmed ?Type apixaban 5 mg tablet (Eliquis) 5 mg PO Q12H 07/03/24 07/03/24 History budesonide-formoterol HFA 80 1 inh inhalation BID 07/03/24 07/03/24 History mcg-4.5 mcg/actuation aerosol inhaler (Symbicort) dapagliflozin propanediol 10 mg 10 mg PO DAILY 07/03/24 07/03/24 History tablet (Farxiga) furosemide 20 mg tablet 20 mg PO DAILY 07/03/24 07/03/24 History glimepiride 4 mg tablet 4 mg PO BID 07/03/24 07/03/24 History metoprolol tartrate 25 mg tablet 25 mg PO Q12H 07/03/24 07/03/24 History ranolazine 1,000 mg 1,000 mg PO BID 07/03/24 07/03/24 History tablet,extended release,12 hr Allergies Allergy/AdvReac Type Severity Reaction Status Date / Time hydromorphone (From Dilaudid) Allergy Intermediate Difficulty Verified 07/03/24 15:09 Breathing Exam Narrative Exam Narrative: Jone Willson MD personally performed the services described in this documentation, as scribed by Samira Mcguire RVT, RDMS in my presence and it is both accurate and complete. Samira Willson RVT, RDMS, am scribing for, and in the presence of, Dr. Jone Vallejo and in the presence of the patient. Constitutional Documenting provider has reviewed patient's vital signs: yes Common normals: oriented x3 Nutritional appearance: overweight Cardio Peripheral pulses: posterior tibial pulses present and dorsalis pedis pulses present Extremity Common normals: normal capillary refill General: calf tenderness and edema Right lower extremity: lower leg Right lower leg: inspection and palpation Left lower extremity: lower leg Left lower leg: inspection and palpation Neuro Common normals: oriented x3 Results Imaging Venous US: Radiologist's impression: The ultrasound demonstrates Heat induced thrombus visualized arising at distal thigh and extending through distal calf. Assessment and Plan Assessment and Plan (1) Phlebitis and thrombophlebitis of superficial vessels of right lower extremity: Plan Patient in today for follow up ultrasound of lower extremity following treatment of EVLT of right leg SSV completed on 08/06/24. Jone Willson MD personally performed the services described in this documentation, as scribed by Samira Mcguire RVT, RDMS in my presence and it is both accurate and complete. Samira Willson RVT, RDMS, am scribing for, and in the presence of, Dr. Jone Vallejo and in the presence of the patient.
--- NOTE | 2024-08-14 07:40 | P.DS_ITS ---
Discharge Plan Discharge Disposition: Home, Self-Care Outpatient Diagnostics: VC Endovenous Ablation 1VeinLT (Routine) Timeframe: 2 Weeks Facility: [facility] - Location: Vein Center Ordered By: Jone Vallejo Follow Up Appointments: 08/28/24 Plan of Treatment: EVLT of left leg GSV Print Language: Indian Discharge Date/Time: 08/14/24 12:35
--- NOTE | 2024-08-14 11:19 | VEIN_ITS ---
Patient Name: SILVIO CROWELL MR#: [id number] : 1965 Exam Date: 08/14/2024 Ordering Doctor: DR RUPA BINGHAM M.D. RADIOLOGY REPORT PROCEDURE: [facility] - OFFICE VISIT FOLLOW UP [facility]. PROGRESS NOTES: The patient reports improvement in leg symptoms. There has been interval reduction in varicosities. The patient has followed our recommendations to walk 20-30 minutes once or twice per day since the procedure. Physical exam demonstrates decrease in varicosities of the leg. Persistent varicosities are identified along the legs bilaterally. Ongoing wound lower right leg. Review of the ultrasound performed the same day demonstrates occlusive thrombus extending throughout the treated vein(s), see separate report, consistent with a successful ablation. No thrombus extending into or beyond the saphenofemoral junction. The patient expressed a desire to proceed with treatment of remaining incompetent varicosities. The patient was informed that treatment was a process and would require several procedures/sessions. VEIN/[facility] LMTD IMPRESSION: 1. Successful ablation of the right small saphenous vein(s). 2. Persistent varicose veins and lower extremity symptoms. PLAN: 1. Endovenous laser ablation of left great saphenous vein. Nurse notes, history and physical were reviewed and confirmed, see attached forms. The nurse was present throughout the physical exam and consultation Dictated by: Rupa Bingham M.D. on 08/14/2024 at 11:58 Approved by: Rupa Bingham M.D. on 08/14/2024 at 12:03
--- NOTE | 2024-08-14 11:19 | VEIN_ITS ---
Patient Name: SILVIO CROWELL MR#: [id number] : 1965 Exam Date: 08/14/2024 Ordering Doctor: DR RUPA VALLEJO M.D. RADIOLOGY REPORT PROCEDURE: VC EXT VENOUS RT LMTD COMPARISON: VC EXT VENOUS RT LMTD, 07/23/2024. INDICATIONS: I80.01 - Phlebitis and thrombophlebitis of superficial ve... TECHNIQUE: Lower extremity burgess scale and Duplex Doppler evaluation of the deep venous system from the inguinal ligament through the calf veins. FINDINGS: REGION: Right lower extremity. THROMBI: Negative for DVT. Heat induced thrombus visualized arising at distal thigh and extending through distal calf. COMPRESSIBILITY: Non-compressible segments corresponding to thrombus FLOW: Areas of no flow corresponding to thrombus OTHER: CONCLUSION: 1. Successful post ablation occlusion of right small saphenous vein. Dictated by: Rupa Vallejo M.D. on 08/14/2024 at 11:57 Approved by: Rupa Vallejo M.D. on 08/14/2024 at 11:58
--- OUTSIDE RECORDS SUMMARY | 2024-08-14 11:36 | XMS_ITS | CCD ---
Author Organization [facility] Care Team Providers Care Submarine Operator Name Role Phone RORY ZEPEDA Unavailable Unavailable BALWINDER MILLER Unavailable Unavailable GRETA GONZALEZ Referring Unavailab le BALWINDER MILLER Primary Care Unavailable Balwinder Miller Primary Care Provider Dolce, Morgan R Admitting Unavailable Dolce, Morgan R Attending Unavailable Balwinder Miller Primary Care Unavailable Dolce, Morgan R Admitting Unavailable Dolce, Morgan R Attending Unavailable Balwinder Miller Primary Care Unavailable Dominick Chavira Attending Unavailable Balwinder Miller Primary Care Unavailable Dominick Chavira Admitting Unavailable Dominick Chavira Attending Unavailable Dominick [...] Propensity to adverse reactions to drug 9 [employer] Phone: (1 source) HYDROmorphone; Translations: [Dilaudid] Drug Allergy [facility] Repository Medications Current Medications Medication Drug [...] Type 2 diabetes mellitus without complication, unspecified fpc insulin use status 1 kit by Does [...] If no relief after 1 dose, call 341. 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 [id number] [facility] Coding Summaryon 08-01-2024 [facility] UvfkcfkcBFp6mNl+PGhlY WQ+QH3UDFFuL02qaCXqmD 8iQ8RDIUsPMgyqXFYFERc OJxRbfuFtSO7vhCVrSIPj IC8+JZ1bDOHjKcaiaXKqi 5N3gJX9E50vdc5mYJzrsR V4XLYyBvUlmzbmp1hfiXj 6IDcuNmluOyBt XTLfuN06XGE6cN06Xg30g UEmeUBsu8dwdSd2LhAzHG LwBIN9fTyfZRyie3NjZFN iI08vgCSgw1G9 QYUlnIgpgAFiPlJyaDG8r V1iFSorutwox9pnobkbYq p3qo81vIFxz7N5bIY3O7B fryP2GUHauBRw LibdeAHHvP4gczfif9eig mdiKuIbAVMwPKa5ULg1FW UtcApbRhFqFC06API5UIB gjiTuA3TyTDKv oNtjVfA3a9R6Ow0WN7MWR pjuJ9ONIUIHSPdgxYI+PC 99vc84P2KdRobqBdj3JCX jSXE9iHR6rC3l BDWaOJpfz5H7dHB9V5Eqa vXmss0vf0sgULHrYSfzG3 1guYLsf8H3ZLXnsFY5FUF ciHgrOvWruX81 Oyc+DOZzhRphl9WpQabba 6htf6ztyGg8QbkcEUGniu BmvSxxABJ9h0FqLc9uYRS snHO9nDS1uU9w FaWzIqR1UKlgU803HiObw CLoNtevJ20oT6MpyTH+PH NeYdw0EAXguHgpTD8kE9S hZGRpbmctbGVm qFgvHN3qWKGnoneuAUGfd W2kMXEeP3b8GfYmXdH6RP jdG5NrUFDctthmFg84nP6 xSnWqFwF5EWiy U9LrxyP4KNKtoPCaELtxL OJ8X04ta3Z0UYVxJQNrPY T7kXY3yY4ibJpdjpgfoCJ mdDsgdmVydGlj OZkgHYfcQ794HPXdoInnQ kNvZGluZyBEYXRlOiAgMT EvMTMvMjAyNDwvdGQ+PHR vALO5wCmzLJQg zPKvBTklLy1inZtkfYmkU I9yBAVohsmuOGIdrR1gPF LnmNJxoUubWT5hCBXesvh nw688BaVwAVY6 LORatFPtD8UdoY8vNkSbF FRtRCQkS6HnkCPuTQvzR8 15CEkxQqI8QEMhtsEkA5C sLWFsaWduOiB0 e5M3On1Kj0WglyjsT0Xsv NUbIwVkRsuzDIo9G2ZzPk wvdHI+LU22SXStVR33UFz 8IKX6kEofYDgj GHEwE7FcxZ5qUlHmZUBpF GRkOyc+PHRhYmxlIHdpZH RoPScxMDAlJyBzdHlsZT0 jGt3uCHQlMJEz nZyjiGYgZmDis0xuNBEpQ QcdJQ6tiCnmC0XjjAY7OH Rpa7e7Jy72G69fK7KzgGE +MMSdnAD8zJF0 xS2cTzEeJmU3DRvlF006Z rEmmTWhLcfrn9zpq9ppvT s4LuH0WFSwyrBypYgbRFS 3b4NvLb73Z57p IHdpZHRoPSIxNSUiIHZhb Xjqnw9swT4iFt1+PGNvbC Y9uEF6hS0sMyPhWpW8XUf eA984OnLlxGNb Bygee5qme7rxyJa1MuDkG IWslvRblGzhNTF7y6OiFc 84S0PheYjhq6GmEaz7rk9 0aQJss6D6aYI9 V6RkEQNcocvzfINcnCiaY R7qWWJpwbmeFHPscS8aZO AhW2g8OiQvUfV6MTutH9R ywpY4RHEapUZh CELwxHNXjA8nomtip0atn jedHgZfQTMqOPn7MGo0CH FotGrqNxHjZGZ8EwF1NRQ 6kQTyiX7wwThh hobcoW0pVxs+OID0hDGxi MNTKY1aPnelmPB+PHRkIH H1yCnlHVtxUNZviR8kFSK fY2z9AaLmSnS6 QIycX2PyxlE9TDGbhJXyF GZlxTRPxD7diddco4exvo yzQoZsPPCuTHd0HWb1GPC saWduOiBsZWZ0 YwK6GXF0gARimY5qaPmqd fbefF5vAnu+QmlydGggRG F5ODc2T4XfFpi0CFHvxFj kZH2smICeOVhr La0sxLtyoSpwJL3oYZEdt wdwp300OnTbw7xoCNEkiZ YjBUhyACP7M46gr4N6IBD hRONuXYR4jCZ6 kZ2jbKsmeowdbATfnAnqb sLfeJyhGSgiGBdfR192JL OmvLhhZoRzHZk4R5LkEup 5VCVzhOpxMI7n wBCeUWxqPe6uoXrpsEpjT U4oFHZtelwch948OiVyb3 faTSLysUDhXOxdSAF4L34 do1G6HDKhTHYr NSI3jPT4uI9npSnfmtgpb GVmdDsgdmVydGljYWwtYW vhR189DERuzGtzHmApoAd 2B0IkKyj7YQGa aIorRH2wuGUjKOlnHn8ap VofiDgaGA2vQRAhxzerf1 17XjYou7xnYLNcjHKwJTs jRXN1Y16rc9H3 NRQiYDQoOGI2zWY8cV4ni GlnbjogbGVmdDsgdmVydG vbMNqaITztM695YWDtpTg nPlBhdGllbnQg EAolZPv9A0CtQtxmeXE+P T30LGLrDV57aEUxyCYuk5 yigNt2RfIqORHiHIR5zRx yFTbxa4OgMWQp H07pcWTrk8U3HFAwjJvgx MTkCdXkjBG7rJ6cWFylvz utc7eyxjikWyggc5qxfz9 8jI00W25yMAcd ZHRoPSIzMCUiIHZhbGlnb p9jiK4wRc8+OSSrmNB9sD M8tH7tJVJwEvN9OPdoW10 9InRvcCIvPjxj d2zxg8aogSn3LqU3GJMdu iOwqTdsGUS1k8RiBe77U0 9sIHdpZHRoPSIyMCUiIHZ opUdnpj7dzC2s Ii8+PVJrtBU4rVU6mI7oC xYuGcJ1HAikT417QrFrqR AhTwrsV68fK2ZfmUB+PHR gSuf7BRLrpMtb UC4trSCbJLqbQm9pURQ7M bOfDlBmMRpcZ8XgMJZtoi gaizalsHA3FPSkZYPtwA5 1Nr3tlHzgMZGq kSMBbQ0jtcxrs4yyybtgC jInVSRmIAi0BDg4ISZxzA ezIgKjBNE8HlB7JOA7cFI lnZ6krMajzkpk cQ4cW1SzKYYzqhprVh92c F6eAcJpDlF5GRxrNao+U0 MGBAXPZehfKLJMS4uyGPx AWE30U5VpQmh6 RMRqfUswNO2wbVXgGAbrN v8zpNfihTuhJC7tPNWqwh ibQXWfmC6zLGXkrJOfeIt cZB6fPZVwpuar i722NnHeGPM1QPEhfCMxB 5WyoT0eUeJnJYIwOMKdI1 AplYFrBRtfN096RRcbObR 4DZQfxqIzO9Re NJWrnCnoLxU6d8B7Bx1nY t9dSE0iXLA0MI40ND08hE Hsq5R9gXG2D7YbPFEtalv evkiklNP6PRWf UQAwgS22cHKmCJtgYj1cc 0W1s551KOTjHYXtoR73Cm 5zaGijAKSryIKCfZ7mlol gt6dbvaneFqRy LVRtXEr0UOy9IFVkcFgxC xHmCRL4MeJ8ZXX8xTXiuG 3qnPsiqyqneT7nFnk+NTk xRSWoxzO0Z4Zj Rgo1BCEfxZylKD9yiHFjN JppKe4ysHudkQtlZM6dVE UptewzQLUikD9bCQDaaVY qxBmfRM7dQKKl corzf332EgWqDRQ5IFSqt JKtJ4OspH5qQjHmYRFpKN VrP0KzpAMmRAanM553BBv yBcX4PLHwbeLo U5RaNUBvgCroGwB8h6J3Q o0WRYiFMZ62DY27iCRis7 A9fDE3M3KjXRDmsbbywol msRX8BFDqBHVn bX30aKSfRZlkYx0us5S9v 767KHKyOFEayA24Rf7xqP ehVUXyqPBShL8iwtvhf2m vcjogIzAwMDAw BVe2BRv9NEPqfHbbGqZfT NO7WrG4CXO3jIRscC8sdQ extazznH7cRmn+X7S1K9A kPjwvdHI+PC90 QXUvAS71oLHjsPIzx6xck Xc2ZeJlAVEjXYE2qCukSU lrc8QrQYTgS84doXAfa7F 6IGNvbGxhcHNl UwBzxHM2hQ9jNFfqbpzhh 8vxgylaDyifl9lqio79cK 18W14jQOdnNSRsTHAzUGU pXIAxtFqppe7w yR6eJm6+PHSgtXS1mLI4t D9mDpJyDwC0IYyqP466Tv EipGAeQabth5dew9wsiHs 9IjIwJSIgdmFs lWgpFNR7b0EvDl01M37tX HdpZHRoPSIyMCUiIHZhbG ympv1yqY3dGd0+NE0cd4w pcr40pM73dVX+ SKWsOHY2iOgdHBruISJnm Y2nQKizAwU6YUYbJkOgqJ 81cTZbWAwbIu8odNflbMb jZU1sBNJrdvuc c692CxShe7utPNXkkYSnY GncIAY3R93qf8C2WUAsHS SdAAC6pQD4hF2apVbgjjs gbGVmdDsgdmVy mHwsSIzsAOntJ918QYKoz QonSzCelRRoL6mnzxWKCT 1lOjwvdGQ+YZZoAWQ5qIz sNJhoCVXoqQ1y NAUiQ0y4GpQdQuW3WDbvI 6YwrcG2ZNTikOBwMXSwuP TYlF4blholn7kayehyNqZ tYFStUGw9NHt3 TUDefOubYtRnIQX4SiI5T NM9pTDyrD9pmJtqnglfpC 9wOyc+RklOOjwvdGQ+PHR tEKC9zUbiQNqx XGAopP6tRYUoC5b0MzHhO aF5CHosR1IboyV4GWPlxE YvJPNjvJWCtT8eixzbl0v vcjogIzAwMDAw DKp6REb7VQGfxWjsMvJqH HT4QnZ8GKA3sQGduZ7mhC vquwknlQ7jCuv+TVJOOjw vdGQ+PHRkIHN0 hNijMEtqWRLziN4sVPZhU 0m3IxQtZeH9YXbrT6Hdam X2MRQwnFFmCNPgaHJVqA8 tkleaw7hsamea EiZrLYFnBTb9RMg4TUEih VuxKzOyHBK6UmZ8MWF8jT UtqY8lkZibntjahY2uPbb +LDW1OGE3XF64 EV72H8XcSmitnBVfxAT+P HRhYmxlIHdpZHRoPScxMD DwQfMnvXekVG5pTa5kEME yLWNvbGxhcHNl OiB (more content not included)... [facility] Coding Summaryon 07-23-2024 Coding Summary HTMLBase 64 WnyobfdcIXf5xXl+PGhlY WQ+TK8JBKBrB72yrBHjaZ 5fN4JFZYwKYkspHABXSEk CSmGzmhPyEA2cxILuSZYx IC8+EW2sUXGdKlwbsCClj 6N4wOV3T34dqz8wYZmiuF G8LFTyUeXuntdbo4bhlAa 6IDcuNmluOyBt SMMweN94KON5mQ16Kg05g QUwuZGzk6fhoVc8LsPfOZ OqCYI0rLvmWMrji4UeDBD oI11hvFEpe3T6 MMWakOydfLGsEyOphKC9h C0aTAhumpmam3kqyqazMs z8sy71zCAkw7N0sKE4E0G cnoE2CIBaxBQo UcnokKMSyF7cwvxqg1nag tsvQnVvPFAeXYv8WIo2WC McyEqjViPrYA82WYB8KFZ pbmGdN9QePNGv bUhrJaJ9b4U9Tr8EA7OZK mqcM1USRQFJWEshsUL+PC 62lq02O3QdDrvrDrn1QGV qTJO0gAZ4dN8b NYVyTLhja7W0zGM3B5Bne mXavi5ec3tfWMCqXYsxL4 1ylGFhi5W5XIBdnGF8FLQ soIdvNaUgmP40 Oyc+MPIzfWnqd1KpWmqng 3ghh6cmyTw7XumtIWEnpf VlpSsrROU6e0QuZk1oBZC cjWG3hQY5gA4c CtDtXcQ7BKdmT733YqJas GWjVogzS08rB6IlsSU+PH VrRjw7PVIvxJdjML4tB3H hZGRpbmctbGVm fQzzHZ7rVDNekhskRTIfl O7pKKUlF3i9TvAsLpF0FS kcO0KbGNMsawbiCq06kI2 uGfNyJgX4ZMip Z2CcdcS2INXsjOElXKddG BW1L60mo0X2LHRaKMAuCA L6gSU2kQ9miFmvcugqdBS mdDsgdmVydGlj EFbtWRfbQ879YKVtlBvtP kNvZGluZyBEYXRlOiAgMT EvMDQvMjAyNDwvdGQ+PHR lMBI1eEqvUSEo uUSxEFfbNu0gtJeysHtoS D4uDTJsqcdfKISceK7yOH HwuUFrpIlnNU5kZEZzvxc dl619XfCxBIB7 ALBumSGiD3LazF9aRcHcI NZgOKNrY1CgdKCeYZbkI4 79PLvuViW4UDMbzjKqF7K sLWFsaWduOiB0 s7C6Od8Cg1GuyqozI2Nqb WWpQqCwFmvoSVs7I6VhIi wvdHI+CW01GLDyZI29GMu 1YAP0oZaxNGih RFOqK4XqqI5jPrIxXEQlQ GRkOyc+PHRhYmxlIHdpZH RoPScxMDAlJyBzdHlsZT0 aSq9kDZWkXTFh bOqnzIOeHeTsn2mfKCEkW ZvpEM9twNzxV4WzsNC1BX Fdv8u4Hm18F45hN3JyxGV +TYKdmHD4pLG5 tW7yOnEmNvS4NKigU759R sXhhUXhMtyil4wpd3jebR b2NmF4UZPlrkPldWpcYJD 1y3HmBe41P82k IHdpZHRoPSIxNSUiIHZhb Spdex3odM5vEm3+PGNvbC J2nZQ2bY5oWiJrGgS0AOa jH772AuGfdBNd Tgqzf3uzg6srsDh3TjTfS RRzybZdjBxmKCO9v0PhCp 94Y4MyuEepl6UbXro1oz6 9bDOpf6R2vOG2 P9KhXSIfmkgczOHqaUpvE L1fDIGbgnkeSTFanK7eRL BwT1b8RwNgWhP5XDidG2Z dchU3DEYtiOHr OHMhyCNMqS0utqkyp7prc bngMzDuIJTiLNy7XIh4ET NrhRhdJfHfURI1QdO7MOV 5wIOptP3wvAjy gkvyhB2kIak+SUN3yRMmo MNWIM2iYwgsoWP+PHRkIH H3xAgfDRocWSQxpS4lSGE nI1w0AfYyWsD1 AUxhY5WqwzA1NCSooXNjL AKjjOMJtQ9bocgrt9qxsk mxYxItCYBbXJl7RZh6EVJ saWduOiBsZWZ0 RhT4SRR5eOSeqV0haXxri gmklO3uJgu+QmlydGggRG J9GOm5P8FgSxt3SFRneRm zJB2fbBUzBYot Em1zmLxmaCyfSM3uDVPsh vzkr399GiIvw7ibJCSoeW UlXIwfYIO4Y51au0N1SUZ lTACdTXO4xTY5 yZ8hcKwdvkgrfOEdpFsvn pUgqBvrZZpyNGdcB792RC DlhSsqPwIsYVk2H4MjCqx 7BKUkdDpzRD6d aEXxQPrdIm5jsAxiyIttL T1bCTTxejnhp574HfWnl8 uzTLYygEEgGWqlTTE1I47 tp6Q3ONYdXWPx PLJ3lYM5eI6olVytfcrkh GVmdDsgdmVydGljYWwtYW vnK285TICzrSldRnBcwTz 6B4JuHlw3UPXq vJpuEH2zrPAyNMihUt5ss VytqXhgKV6gMOSockled0 65BcDmj8jzIFBrhNUkQIy zZVO6O55uv5Q8 BWIzCCIiDUX9tRZ6iZ0lj GlnbjogbGVmdDsgdmVydG yuLCtpFDcrE748BNFdnOn nPlBhdGllbnQg UDrrRNx6P8QwFpfjxGJ+P X11CYDtUO30gBOnkVRqc3 bssTx3EuVpOHAuKQG4jLo wULmcm5EpETTh I42bjFBrd1B8UADmyVpft IGjPoOjtZJ5tX0hJTulej cpv5yfzawjSxehx4yrhg0 0cU09V81vDHvl ZHRoPSIzMCUiIHZhbGlnb g1ouO9xCk3+HVMrkEN1xG N2aJ9pJPNlOiD6TJqgF64 9InRvcCIvPjxj c5pmo3dimAo6QlI0VXIqi oZqkJhfICD6d1OsZl67W9 9sIHdpZHRoPSIyMCUiIHZ drIaxwg3gcX2i Ii8+PPZimBK2rDL0kV0dK mIhEaW6JQhgL670TyYlyF TjTjuhV87nI6RwhNS+PHR eXix1RBDswLzq GD8xmUTgNBfzBa0jKWK0Y zBfVjIePIgnO0WaDVQded rutozbwTF9SURdAHNufW2 4Qy0kzIrlKLSm lIZFtM9dmwvgm6cqfdylL dVsFDYeUCz2AQx0GYSuaC yqFrGcIHL0YsJ3JHP3xXU ksZ0zyXnsozhd qC0iV1XlMAGsxevkCb54f K2gOtZdOwE9GUggAmg+U0 EYHUSEIgnmGTGWT7hoIFo YCF37U5CnPju8 VZRwdAgoVQ5bdDEnVQseU s2lgVmwiXdnMC5dWXOlfl wwAKSogP0aRGAoaZPrvRc aKG1iWNMtxwmg s161JcIzDLE9TPEjdKAlY 3RokR3lSgInMYBlUVZaP7 TklLUrADzuA425JVmvJsZ 5MKNattOjP7Qg IYNsqIjxNqP0x6Z8Ix7cT x2gCS1jUHR4DC66JA91kC Rng9T5hLG0U3UmZBBmcxq xsrtshWG8DPFa DBTpyY30sHTkEPpiVr4yv 1F8j353TPTvRMAdrT84Zz 4nfLpfPFNcpDJMmQ4rqaf ej4ynfrywZsCc OSTzSBv7OTk7FRSzgMolM tWbTVG6WmL2OWL3aWXzoN 1hdTrcreqnoK9hMgq+NTk rWWInepM1Q5Aa Kxc4BEPppBvxQB1puWKoB NwmOs8bpWulvXthTG9xVB LfhweeQZPzwP7vNRRslFZ zqDliFQ2cVUTs kizwp240YaFoVCZ4WLUve YSlD6ZwuM7pGgCjUYJjRW HkQ6WneRLsHTqxL770RAq sWzE2MBGqzhHc T4HeLNGesKlqJaZ5i4V1E h8IZEiGUO28AC25sJFzb0 Q4qRK4H2WoAMRrawqezyv hsYR4QUCjXRSw dA26fNQuNJnpVb7cm8H2s 264EMVnQEDfxG38Jb7pfJ kfLBXgkMOTyL3qtjpcg1j vcjogIzAwMDAw RUa2IMa3QEJbqPzmOiPrV VR5WmS0KPL0mDSziZ5qjZ uispeldX2kKqe+Y6V7H2Q kPjwvdHI+PC90 ZUAdFV91tVNbeMMva1urp Sn1BxJvOOPvUPW1wBxaJU yvk9GzVVSsD00ycDDjx5T 6IGNvbGxhcHNl ShGpmQJ0vS3gAVvalcfeh 1pvgxbaEvucr7fjhj08zD 98T05bNLbuFDZcHVRpQSI kSTQzyKyakq9h yK5nKi3+BGWyhDB4hDL4y P3uBtHrReM4HTnfG054Hq TdhORhCbhuq5rgz1ostYs 9IjIwJSIgdmFs dUzrFZW1f8FhAn05M51bE HdpZHRoPSIyMCUiIHZhbG tymw3zuV2yXl1+GL1ni1a yvb17oR75aHB+ BHLgFGZ6eBkmMStaMEQek L6pGRyxSvX4AGOuLnRgsM 38tDIqGHadQv3ifAezcCa kCT0wTTZezvfz x841GoPal4xzCGDudZAaC MxfFVM4N65yz8V7AVTwCV DwNJR8wWA0tZ8sbHahbpt gbGVmdDsgdmVy wXtxXIexVEvzF256NFXrd RyyAbVhnHTlS4zrkqPNMY 1lOjwvdGQ+EATxFIO1xWl ePIdvTKIfiM0f DTRoY7t7DaTiSeQ4XGxcZ 5VcjbP2WMRirQMbRUGweE WOyZ8zzxdwc8rawsxmPvV wEEIqADt8TTj9 VFMnbLnxXzPiOOF5DjN5T RM4jVIeoO3ciYbtuaqkiF 9wOyc+RklOOjwvdGQ+PHR iLMJ5yBuiZZou XVMqeO7xXVPbL4n7JmSjE lT4YXriH2GstqN7YWTerV IzJDCykDOApI2bypvky4n vcjogIzAwMDAw HPz2EXp1OOYuxZftMrGgM CF3VaW5DPA2kSJiiZ2kmR xopyndhZ1cWdl+TVJOOjw vdGQ+PHRkIHN0 nOhlEQwkCJLuqG6oVBTyL 8s1FaAiHbS8OJrsA8Wwqo O6HJAfmNYxAECjiMZQkF3 xatnvh4uefuzd UxDqQOOvMLd4DOw0IESji QapNuFyAVZ5TkS6GFW5xF OttV1zcOytpetriE0vHbt +DNY5AFY5PS11 KZ13I0UlUounfULrlCT+P HRhYmxlIHdpZHRoPScxMD KfNwZmfAmiNY9oGf7rGBA yLWNvbGxhcHNl OiB (more content not included)... [facility] Wound Care Noteon 07-23-2024 Wound Care Note [id number]#[email or web address] Note [id number]#[facility]. [facility]12-2024 Coding Summary HTMLBase 64 BrnkripaQBr6dFb+PGhlY WQ+YF6JUVViO43snSLhnS 2wD6BCBQuINnsdEUUEJHq LXmVduoCwNY0toJSxFUWm IC8+FU3eECZnNwxzeOCgr 9E8vON6G12yni8fSAedmM O0IZOgZrBfwpzuw0difLy 6IDcuNmluOyBt UOAxkP98DBQ3bB14Wm17a KHxfVQme7ifzKs4HvNmRW TgSZF8xBfjAZpfg4HaOXJ yR46xeYJys4M8 DKVpaHsvfCXjSdLskDY5e O3xJVdbrtbvq4gjvimwDv n1kv99iFJtn9U9vZV6C0Y oqgI1ONLxkNMz JabavOXIyL4egqwki7yjz wycOlXlFSZvBOz9ZQj3KC KpfLbwPtDgOL64KEP6DBL cpiIuA8ChRYQh bVudUlR2j4I3Py0EV8UJL sbsR8TQBUAGPNiuwWD+PC 30ij05Z9HpIctdXag1OHP yJNI6gTG8pG1c BAHnKTcof8M9eCZ8C7Udu zXuav1lb0vkTITdPFyzC5 6dqZXmh7D5BWSrgAO5SPK kzAzeHfLuiK15 Oyc+MPUelEiec9KrPyqhm 6vaa2ggrVu2VnueVAHprm EyqZwcVIJ0x8HkKw1sERO akEY9tEQ8tG2w PaCeViK4ARvkP339DjYqi HLvHtzyC74jZ1NdaBE+PH WfUeu4DLSofSnzAX6mA9Z hZGRpbmctbGVm sMunJX8rFDQetjeqRZOau P4vCUUeY7m5JkNrAiX3GK xeB9JjEHDtolegDc05kR9 yGfGsIgM1TNmq W3TphwQ9NGAodWAgALsyT JC2T16oh7M6OBYnREMsSQ Q2nVP5lI5zsOsiunkdhIT mdDsgdmVydGlj BKsuSXbdT180MMBgyUnhV kNvZGluZyBEYXRlOiAgMT AvMjQvMjAyNDwvdGQ+PHR nFLH7iXvdLGVh gPHlRIfdHp0utBbvxYwlC W9dLHKgtewtFXLvkC6fPA JhuCCgvJmeSZ3tGYRanbm dq542AgWxIQH0 HNWflWWxS6QpyH7lXdIzJ CPkXWSuS9ObtBPdHThnS4 75EQiaScR6WMPxxtWqP1O sLWFsaWduOiB0 y1D7Nz1Os5UtpzgqQ9Bin HXvIlXbKtuwGAb4D1MaEf wvdHI+XI61LTLvMB59JZf 7BOJ6mFlaJQkb OAOtM0CjkS2hWzDwWBCiS GRkOyc+PHRhYmxlIHdpZH RoPScxMDAlJyBzdHlsZT0 rDz3wKVMoUEVr xGfkkLQdChGts8kzOMVrR TiwBG0ocBnkS4YtbZY2UV Qxj9y1Ik33B58vU2LkbJZ +BLSwrUZ1kCS1 iQ1uOfYdZiK9HAabB776E tAkpYDlRtvqu6itz5iruK x9KpG3MSFqrwNitSafGPK 5k8AiQm27G03k IHdpZHRoPSIxNSUiIHZhb Ikwga1kzV9nGs9+PGNvbC C1qMC0pK8nTbWpAmS2BPx zP960FoTgiMIn Stfhj3itw8xskTq1UlSaD LApmeXtuKszSWG9t2XaMs 44U4SixXkim0PhEiv2ce0 0bQJkw7T9xNK7 Z1QlSQFgcgqsyIWajHknU Q0lJTSeadglYNGlrW4mWM EjE7u6YuBbQtZ5GQeaE3M tcxI4UIMexNPh YDWueCKDmC8uknyjc4vmk sdbQdBcSGTqXIf3XDc0EA SloBonZkJnUUO1HnO1ZDN 3vKPqoG3waIco qirzuA0oMzi+YIZ5iPFtc URANW3gCwwrmHW+PHRkIH C5pOyyOWrwMLNsvD5gAUX iN4r1DyOdEpJ1 UEowE9DbchK6CFWvmPQrW NLplCYSjV3umzqqn5mdos fnAoBrQPOvXNx9YGc4BBX saWduOiBsZWZ0 YuS4ZRX1ePYwaO5izMafb seszX8eAma+QmlydGggRG C6OAs2U6LcCzv1RDHroZf fTQ0xmUDrZByt Kr2zuWmnsDofDK3hDZEmu tcpw800DzGox7hiBBSgqG YbWKqeBJU7D03cv5N3WWG eUOJfGLQ6iIT9 zU5haTiwoinvzPVcaMztz tHbcXrbLWowAHltF799UA QoiItsBnFmLJw6T9ObTls 1XFRmtJzlAT3i iANoDWijZb2xnDxcbHrdG R2mEAYihpxhe654RcIco3 zvXQTqaBAhTUslHAG1L69 mw4M5BPIqOHQd YXS1fIY2nU7moSbznzwlm GVmdDsgdmVydGljYWwtYW yzT925RVKzaOrdEbUcdVa 3A4CmEoc6KJXl lNpzVS0xiJVwGGqvRf2gz RrzbCvqHC2lGFZrvouvf1 86ZaZpq8iyGPRhjFHwKPc pPWO7Q09gc1U6 LFQyAPNjKBF8xAH3yA7yw GlnbjogbGVmdDsgdmVydG xeZBscDWrgK018GESipXr nPlBhdGllbnQg JRimEEo5T1BsPllrhLC+P C95TDTgWI18fNCrnFJsk4 ryrTw3KrRiCXDsMIG2pVg iXAfet8EkRSZy E57czTTzf6T2QQDaqCwaz ZGdLlQfvAN3qF3wFLacfh owi6reptkwStshe3snnv7 0tH68N56uFQap ZHRoPSIzMCUiIHZhbGlnb n3mgE7wRs4+YGXpxJN7gY H7eU5mDWFoGmH7ANcdQ35 9InRvcCIvPjxj r5hoo0tjeDi4OpA9ETDqq ySgkNteOEK1s5OkWc52J5 9sIHdpZHRoPSIyMCUiIHZ xxLfpda4mjP1f Ii8+GAXriQU4wSN1sN6xK kGiGoV1PNffQ409EzVseS BfWyzuN47oN5LycUC+PHR zKmb3TDWtwZax AP7ugLThTBloSg8jNXU1F rEcCzEoJMniC0PvQEBzaz zcewavmFH5FGHnBLUjfX1 7Xu4kkJftOMUq xGVPyW0neunke3qmujhfD qHmMGXkOGp2SBp5HXNejQ qwFjMlDEJ3MaR5OVK4sOU zcL1rfHfucllv rQ8xZ3GfQQNdsaynKn05l C9lMsVyQlV4GSdqKby+U0 WSRIWPAhxfYJSEI3zmRJh ZND36E8GbCsg1 GKAmiEqsEU2oqDZzXUkyV y8oyWqqoRosFD3mHRXawo bkNCYpkI4mIEPheURitPg hRD7aXPNpnhhs u541MbFmVYD1EXDqeQJcC 4EzgP8xOsIjKJVoQZNgZ5 WnnPEqVIdmO395TYnfEnX 6XUBfagHoO2Yp WHLypXsaJtV1i8K1Hp4zW b0hVH3aGIM9GF20XN90qK Xxm1P0iZV4J6MyMOKaboa ydyydhKL7JUPa NHQfhA31dATzSQepBq6cr 0K9w645LYBiSBKtjL43Gt 8jsNzsHSBykYKUvG7pnwb nq9rjppdqBtMs HWVvJTs4JPu6GSUtbWobD cPzAJP1LqW9SXP8wQPtgY 1qzHrkfljfvD8uYee+NTk dVXWoxyM4P0Kc Zle4INXasDhjLO5eaDFwA ZaiFh6zgUzksCguJT8dFI FtxbluLNQolP3jMWJxlDA xmOhwMJ9yMGHk vjywq786DgOfKDT4OSUza AKeB2HuoJ7sNxAkEVJpEH FiQ7RreTYdRXadK204GLe sOqM8EKCcptSe P0BvECXhwHedXeB7d0B4B d0DXKoBVD57YO19kWYcc3 Z7bJF3M5PrYYRyncogcly joUO2VVAaUXDq cT53aBAcCHkwOa9mp6D3u 695IFYnPLEzrN97Co2gpJ tpOUPknGVKjE2yjystn5o vcjogIzAwMDAw TTh5XNs0YXLufWymTvXjT QW5MtG7XLO4vVYjfL3jrL cckydajY7xWuq+I3G2B3N kPjwvdHI+PC90 WINwZP92rNDhwXJoj3xht Af2QwMuDQJgBZH3xXtlHY rrp4YnRJIuE09fqGPzm8H 6IGNvbGxhcHNl DnCuiXU7xT3jHThktpoel 4vthozkDvazb5teao66iU 32J31eYVbaLGWfYIJqVCH hIPWocKrmll7a aK4oBb5+MRWghUV9hMQ1a A5yUuVdRsZ3ODgnV890Lp BukQGsRnehk0sfk8avoSz 9IjIwJSIgdmFs gNhyQDB0c9QjQu12J27vW HdpZHRoPSIyMCUiIHZhbG wbtl6jyJ1sPe5+VW1ub8g cgt42yH24bTI+ WVGlGNV1wKutDXguQCOvx N2xQRulWgQ5TSLzDqPmuZ 11tPNjAYupNd5vrCxhkSl fQV0nBWPprmva v222YkRgm0cjMHOviRWqU HyrFYU5X22dy9Q1FUTfLE DuZJJ6pME9zM0yfJsrajm gbGVmdDsgdmVy xSleKQbcGKucF507QRWzz WroDkTmqMTpU6fslhCFXK 1lOjwvdGQ+GHAyFCN3fUi nUUwrRVLhzF9w DCMuN2w2TuBxYfA2FTbhL 5TfboT5KNZqiJXmAECouT HQlQ8jzpnba0mdyvftSqK bETYmPHv9VHh9 UTIceYcaHxOiXWO9DqN3N UO9hMGihI3qfOajozjyzL 9wOyc+RklOOjwvdGQ+PHR jYJL1fXdlCJyi ICNlgV2sFMKcF8q2BaZiV iZ0BGyvD5CypbL3TASriU MvYNJuyCSRqE8ejrowi5m vcjogIzAwMDAw QSe2MDe4KKBtpVoeHvQyD RU6JbU9NOU8qPTdhG8amG qlqjfzdP0zIlx+TVJOOjw vdGQ+PHRkIHN0 wQwjMCreZCYpiW8vOOYvG 4k4DvMrHmS4WIihU2Aido X1AMDmkOQsVSOmjPZEfZ9 dnpmqd9qpbydu CdWdWWObYTv3XOk0JBJtv VzpVpIzDAT3ZdG8CQX1iL KqeY6ifFuegqxhbW7wRhk +SRK0BYH9GK28 IT77J5KrMrilpURkcVL+P HRhYmxlIHdpZHRoPScxMD UdYeRxsSlhUZ4vAu0nRXP yLWNvbGxhcHNl OiB (more content not included)... [facility] Coding Summaryon 07-03-2024 Coding Summary HTMLBase 64 RpnqnopkDZd8oZa+PGhlY WQ+ZT3DZIDwE92ncCDloD 2aE4TLECiIQsfxGQNUPRp XGdTgvdEmKY7unMHlBQOo IC8+UZ8hJIJqOncuuRGqv 1V8nND2D73uro9bLKtcsH P9VTAcWmKhgssmg0lqwTv 6IDcuNmluOyBt UZCmtQ83JEO1nM63Um91l QYmjURxk9vfpOa2YwWkCV DuRNX7wGmoFTbty2KzCQD rC32daGEem3V4 TGZalYpswCEhXxJhfCS2d O4bMDnuhleii2niyhcpIa p0aa12dZVtx4A0eVZ3B6P eerQ9YIIduMPg RohfrXKDdP3dnkhvv7krq wwdEsPsQQQwGHn9VBd4HH EqkCvyOaKgJG97KQW4NRR ogqMtG2BtFRPq nZwiRvX8r5M0Ny0OU1FCS onqH6JSZOHGEAbogGS+PC 25xw87W1UmDshwMcz4VXI xNKZ3uAY7zR5g DGMtCKbgm9B3vDB6R7Txn zAkcb5oh4xaDGRoASrnO3 2nrTEgr4H4EKZhsGY8FMI scHbjEjMwcQ20 Oyc+YOZjoDqyn3UzAdvwr 2tfl6kawXd0VrrnXICzvs OijYvcAMM6y6JrCa7tKPT ekQX4mQN1cS3c BhGfMjK6APghZ853PnRzj DPlCwuqT14jF3BqjWQ+PH KxYja1UNSwuEzhLL4dH4C hZGRpbmctbGVm gYawMT1lXFQpzhmhJKVkl R3hIMTgQ3e4ZaDvImV1XJ ppA6YzKRXvntcbVm49yK2 hZmFjTuS9CDwg L6HjdoG1OKRlyGKnPKofJ CP0L46wn3G1IJGwCECkMX Z3cEF9vE8qfTctltivcXS mdDsgdmVydGlj GGryQLevB977ERFvyLryW kNvZGluZyBEYXRlOiAgMT AvMTUvMjAyNDwvdGQ+PHR oFXY8nYhpQLJo zNOpMYfzHw8czQyooMhbD K8qYMVbkhtgWCNvqT1sGR OkvDGiwKfiZO4hVUOyfka hh791AeQvZSG7 SANsxJPiO3IrqT5gMbDlP ZTaFCIgC6UheUNwSSxwJ4 89HLenDgL0EVAbzkLzS7O sLWFsaWduOiB0 s8C8Sv9Dl4YudnqdG8Cze CAcXdChJivrMQp4S4StAl wvdHI+DE91FPRwJA00VVy 4UZG9dFjqEWsa BQKqR6RcfH0rSoAeRSNgN GRkOyc+PHRhYmxlIHdpZH RoPScxMDAlJyBzdHlsZT0 jRr9aPSPqYVDu xNtolEYjTkXfm8sdFRKfL HouBO6gqIrqM6AzuJX1KH Jrq7w5Eh51N76mU1PewHH +OEAadMZ0sFE7 aM9lVvIdPvT3UYemY033Y aVdqDBpGkcfb9elv4bfzF n0MwZ1GGTtizCojWckUVL 2n4UfKa69M52x IHdpZHRoPSIxNSUiIHZhb Ohyns9vrR3sXt8+PGNvbC J5gOE9vZ7pVuTwZdZ4XIp eI721OoKhtTHn Ktnzx9jni3budKe6RyBhQ QQgziBuaJqoCOC2d6JySv 97Q9HxdCzvq8IlCeb3qt9 5uOMkg0A4xZV7 P0AgYFXduzfsfWEuvAapS Z7rAZJarzrkUPNnfH8cIG VaR9g0UgNfLrW1ABpaU8M xmbW9QCXttZMb WDRflHSJgA7stmeqr3hxz ixtLxMoWRRwXDv1KAw9WB KqxEjpQrQhZUC9AmS5VZF 7pXPpdW4zfJvj pszulP0zJof+CWD7qZFle YZCRK8lXswhmGB+PHRkIH M3yJrbLVpiDTOlnN0mKZW mO6f4CfAjIsQ0 ORmsP9JemoY8VREatSVdQ XIeeHHLcP7mbkadh0rqnc xfNeQbJJIdUAx9MEv6EUT saWduOiBsZWZ0 CmH4SNZ6jVQmaB9jgOval zbjoM5lUcm+QmlydGggRG Q6MUj8G4YuUsr8AOEgxTc mLS0hlZChZCnh Pc0ovNctgHtnVV1uHJCte nnyj626EeYij6egUGXraD NkXJciQCL3F11md0D5VZT wNPTpQHV9cMR2 wT3mfUychuzktKRaxXdla tAplKsrBLqzDYbcO894HX ZpuZmeOmXfTKn1J5ChZep 7SDYijHxdEC8h uIIcZRogSb8laGsksOqtE J5mTNSbgoffd751YxLfp0 mkLZBeuYEkMMmsFWU3W25 ou2S8SZJxYMKj BKU2oYD2cT0vzOchsrfmw GVmdDsgdmVydGljYWwtYW psF160MMKybVxdQwHalTh 3A5LdMem5ONLf eLlmYX0huLApBEdbFa2ze OtqdZksAS0bFORrtdnrz6 74TjEic7gqKLQszTTyOWf wGGC3C36ta6F4 NFChEUMcKNS6hZI8nT4wl GlnbjogbGVmdDsgdmVydG bbBTaiSPktC179RHLpqVo nPlBhdGllbnQg BQvgRTh2L6GzJltwmTH+P D64WCJuCV34oFWrsDLcu2 bttOs6YbFkLCYgDAN7zJa pAOsfc9PlZZPs C91scDUhz1R3QZLknDvgm BGdCdLfqKZ6qY2qUXjhme hdd6uizjdpBleql7cciw3 0vY05Q21hXMjr ZHRoPSIzMCUiIHZhbGlnb p4atY1gCs2+NJNkmGD8nO Y0bR2wAKJkFzD9PJazK13 9InRvcCIvPjxj z7hck5xuzFs6DnI0RNMsj ePnzAduZZQ6i2WiXr81A9 9sIHdpZHRoPSIyMCUiIHZ akRcxko6zaF1p Ii8+AKExiXE0hZY9zK7uC bMjHaM1JAfmV520YdXgjW HuTrkaE32qN1KcjNS+PHR rFfx8WPFcaXrc LR8okTCkWCztCh1xNFB5L vEpWdJiSLvfT8ZdIIMelr sluvxnaKX4ALGdDYXytI9 3Kd8gaDaiQJQw lZESjY7bumdfx9gynbwlC rMqCRKsUEw7CZo8AXNpjO ynWlZkPCJ0HoB1GTD8aLX oeR6fuEmleaxl zG5lT3GvKTFaptulZu94n Q5cOsJwXoL2AFlmOqc+U0 PHTRBZMlroEGQYP8uxAPd QZW65V6MaEcx1 KTBmqZfuCF8viQCzEXbhU f6rrTtpsDikFG8tBRAwsl gfGBUumN9gFVYwfKMwxTo mDU7uKNOilnwj s123GhWcQGH7XONfeCVxW 0VclD4nGvIkUXGcBGLnP8 LiiIGzLTapH873VZxyAoM 2SOTwqrQkW7In ZMWjfLwhBnD0b5I6Tg0lT z4rNC5cBYW6XN53WF63iZ Jnr1F0xTR9T9ScDEYgmbt tiwomgAX0PLKq GTXjrK25yDEcMMqzJb0ns 2N8o867ONTsNBLojN62Kr 3drImhPQBnhEXDiA6ofik gf8zsdiycFaIw GLNvIKd3PIx9GAIxrPijT cDeVEI7FiO3NTJ2tXIcuL 4qgDuedfhmdS8hXuz+NTk pBPBydvI5W7Eo Egk7DCPlnGynME8zdQBcM GauVa9exJxffRimEI5zCN DvrqvrYWUazB9kFNMziRH ceDuzLZ3wBBJx lwrta588BuVdHEQ9RARcb TOiM0TrhS5pWlHoJQGmKE QmT5LxnGFeASpjL856HYi sQjX5AXFlmrMe R1DdKOIojWlyLoA7q8L3A i8FJEeDNQ31IK54fKSsm4 G5hUL3P1HoJRZsfgmsebn hfUR8YFHaQLWg fQ19hZQoFCtjXo6aa2P7l 269GRZuGEXxuY88Bv0riC etDLVdcNNSdL5cqucni5a vcjogIzAwMDAw ZHa5GRz0YACntFhhSpEoH PG5ZaS1FBR6uQEaxT6koG andjfhlL4oLkx+N5I0J7V kPjwvdHI+PC90 XIGbKX92yPLjuYPze6lyw Pw9EoSgWPFyXEE2mLtuNF saa1ZgVQGhE97ssKZmp5N 6IGNvbGxhcHNl QqNtvCZ1zQ7kFVjjhcpfe 3jgigfdYybmv9mxdk98mE 50F46bXKcxEGZdYGJrBWY iCLWjjTkyph6j jN2fCh3+WMIwiHL1rYJ5r U0iNaOyHeQ8DZofK798Hc CyfCJqRytvi3vgo4apiFq 9IjIwJSIgdmFs oEmdZJR0w3DkJa96D98eS HdpZHRoPSIyMCUiIHZhbG drag3kyB6qLl8+YR1ev0y jgs80tZ66oBE+ RTQeMKW0bExhXFwiUCWke F4sLIbsQgN8HKIfKcYexK 47aGYyWAonDa1eySkyqKf aHB6oFAZhzgmf a675FzTcg5odWPXpfOYbE IlyBNL8B29ye8W4ESSnBL BoFQI4rTF1kK6ktOoatas gbGVmdDsgdmVy xCpnSEtsRQjhC281DFDah RjeXdJmhDTuE7jypeBGCC 1lOjwvdGQ+WQXvJDD3hSj uAXwzPBYhjP8v DIDkV7q4KlFuXhC4NEpvG 0XnegC2IQWzwUKtYXEenL FXcJ6iksfqn5qcgkpwBrH jFIAaISq8FMw1 HXYoaWvkYvHnNXL2GkI1E OL6yNOudU3jtXwoqplglX 9wOyc+RklOOjwvdGQ+PHR xGHE2rPbyTShb KLPizR0pGFBvZ0h6DyPdB cA1SAnzE7JcgsR7WQZnvI HjWEQuqZZFeU5agciaj5y vcjogIzAwMDAw EWu1SNs0TNEabPhgAsDvC CF9XlR2RCY9kGWegD5yhU alzfmyxX7dGls+TVJOOjw vdGQ+PHRkIHN0 hNicNWziBAYyyJ4pPGXdM 2e9RbShMmP6NIxyW8Ptbi X0RKBnlIFgGZJscWHCmQ6 nhwezx5qzorww FgXzIYBzEAp9OJq2AVLqo GnyMsVkHQD4ZsW9MAM7cV YizH0odRujvkloxH6wPhl +CTU2QBT2ZF57 TM42T0VxFrbnaHUneJE+P HRhYmxlIHdpZHRoPScxMD NcBzYsqOgkDU9oSt6eUVB yLWNvbGxhcHNl OiB (more content not included)... [facility] Wound Care Noteon 07-02-2024 Wound Care Note [id number]. [id number] [facility] Coding Summaryon 06-28-2024 Coding Summary HTMLBase 64 PsxrnptkVWl9eFk+PGhlY WQ+JB5HFBBaL12kgVOjdK 1wS8NCQDrDNdhzZPCVDWq MHhQyzjAvQI4zhJLfIFAx IC8+RU8aAXRlHqqgmIUvc 3Y8uQU3P06xte9hSCewsA Z2BIYsViShiyacz2rycYn 6IDcuNmluOyBt GQDpfJ52VDG6oQ48Nw85h SRwnAJpi5byqEc8JmAtYD SjNTO2cSqsXBoug1QkSTZ vF15buJUct8B7 ZOOsdNenlFEjUaEhlHA4c K9bIKnegpgqu3mzwudlXn u4oy19iRQnm5P8rXZ6G5N gehR6CADgnGZd UwzhjTJUjR0ocxdyj6mcq gewMlHhGVWrAMb8GFs6LV WhiShcHzRcCP59FSP6TPE letCrJ3UpTOOf wPygYbL2g3O1Aq2DX8JYB wsaD5BTEFPFHNycfMA+PC 12gs74A9LgTqgsVob4RTO xSFE0uGE3nP4u RKDgJPddx3B7mDB1E1Eyc oAzrf8op2hiFCKpIBjqG7 0kyORsk1Y0CIGxhQW9JLE pgJfyCgVgoL40 Oyc+DUSotNbhv9RqUiwlr 9oai9rcgOb3IzshBJTlxa GlbMvjXTP4c1XbZf0kTDD zoFT9hKG2jG5l BtLmWzA1KIlnC814NwUav HBmJhjnY12jE6VarLJ+PH FjPjz5VMUvcSdyJK8rB5T hZGRpbmctbGVm bTsyRZ2cDOPgccanTEWzx J8nAZLuD5o3KzYgJwL5OK ulF4XnGZRzaonjKx62jY4 yFeJtGmK8NBwk F5LxyqR5GTDawZJtBGmdQ UN3E96jv9T3LESlPYJvOB M2gKE1rT1ttRtdfwghcUP mdDsgdmVydGlj NAvbPTkzU670ULPpkVazS kNvZGluZyBEYXRlOiAgMT AvMTAvMjAyNDwvdGQ+PHR cXVI8eAeyFQNb lPCnHRjsPr2ihWgkrFqkN M4wCNGvobxmTJFcaG2zCD PhzIVxzGzkKP1mFUKsecg oh200JySpDRS7 VUYnqYIiK9VivY0bKuUkL XFfSIMiI1QpfCEfDUucI7 70HSwdGsT5LRBfvhWyJ8J sLWFsaWduOiB0 f7W5Zy3Ul4IowslyJ0Yvq VIxEsPsEndfNXf0W7TyIf wvdHI+VG42TFCaOL93VQa 9CAB9fCrvZKyf PUVjP9UbcF4aUqLcLSFlK GRkOyc+PHRhYmxlIHdpZH RoPScxMDAlJyBzdHlsZT0 aBt5kMQRfQZLn iExpwPZlAqHih5itPIFsK TqrHS6xwLazM2NoyFP2TN Dym6j4Es30J44kJ0GvtQM +SORatUI9yTO8 pF7zZnMuNtT9FXhsC494D qJauBIvImxbg1eje8lhjJ s7PvW3WGZzkiFmcUbnUTH 6t3PbDc93Q07d IHdpZHRoPSIxNSUiIHZhb Trupn3ubQ6xHz9+PGNvbC L5yPI8rP3mWbWtExS7DFj dJ477EpNxeEAm Isfyn5pmh0hioXv8RnEfD VMgayLcyKycASO9v9ZyFe 43I5TvpDzxq1HuAln4ad1 9sTZzf5I6gIL7 P5TsURNrlfvcsHIztOdjB U2gYOQguqqgJBEcuB0yAM JxY7m8FpBkWwJ0UEokY0W bqaV7LSCaqCJv PQVeaVATeS6niayeo8xvb kecCcIaALZfEHq7ZCb2UJ SepWfkRgRyRJQ8UtZ1UTV 0yKNamU4veClk pampsR4vGgw+WAB2qKCvq IVKAN3bCuyzhLK+PHRkIH U0yNmiZWsmRTYaxI4nBYP aB4u1SgTxKzV4 ESkvZ8HvbwU5RBAppJYcW SHmhAIIdE7xesink4yvaa euIiRhVCVnCNx5FBb4XRG saWduOiBsZWZ0 BeI4FAG7cXLhhQ9jeOwog qgpyX8rOit+QmlydGggRG X1EYp0M1PzJcb2OXKaqNh hQT1luYGqXUbp Ol1azXusqKqoTI9tPGPzw bhog613HwKds8agBLJglF FgFCclTVZ1Y24ja1L5BPY bZAYqHLP5sOR1 iP5pdPcyjcsdkIJzjIauz wErwDswWIodKErtR432IL HixZchUoPcQRi2L6UuZpl 3SSDolEgeHC3c bRWfXYiuBs4soJaqlBnzG I8rYUHyazwzg542VoRoc2 irGBDvkDHfUBkpRWS5O63 va9X8UZBwSXOz HZQ5fND1nM5avRkrgpfdn GVmdDsgdmVydGljYWwtYW ysN229MVXffFwiCcUprTp 7T3PmFxn5EYVn mMkxFX3lvTWyAHaeMl3zg AkicUnnIT6bEQNopiwvf5 89BrStm4okFOQjyJTrQPq fSPT5Z95ck4A4 HUKrKFQhOCX0uWZ4nX6xd GlnbjogbGVmdDsgdmVydG jtGPheUHlxQ990XLNipAa nPlBhdGllbnQg FPyoIFg3X3CbHvyfxVW+P B16HWMxHT99eDQwtEHra0 uvwGp3PcPfTRXzGTZ9oHm cPLrpj1QkGPFv P96msABvf0R5OOBphHady JLnCeMjuTL2nQ7pIYzbib tez0burcrcZiigq8rbvv5 2yL66K11oJGuo ZHRoPSIzMCUiIHZhbGlnb v7zrA9xLk6+OZGmdMO5oF H9eB2dCZRhInB5DAjmW50 9InRvcCIvPjxj m9rsf5ztuGn3DoV0BUIqe sGvpDgkVVB1d2YzTo87R1 9sIHdpZHRoPSIyMCUiIHZ jcIxwyu2qpS6f Ii8+HJHcyNE3fKV9rI9wR lPeWtH4LAqbV894ViJdjG CcYbfaB68qQ7SofHT+PHR kRax7YJBuyUhk UB3uqMEqWLlgDg8xOHA8T zVtNhQvOTgsU0KkGTMjto zmyiileAS1FBBpNSMuiE2 7Be9gbFynRETo cAWSnC3pbqnii0ghsbnrK xTnJSHqMRo3KIi3KYEonP bgIuJjLKU1YiU2NLI1sUX hjB7fcXftbmzw mH3gK9OnEFCbxrhdTc39p B9wZpVfDjY3EChyDgp+U0 HMOCVIYshrADEOD5kwGXn BPT15Y4FwGpd1 JANkaUxwPO1gwGRsSFeiN d7qpOfguCfrXA0uWXQnyf pmKQKrlC3tLJExhGNusSp tRB2xJNZbvizb n890VxXeICQ8ZEFjpKLeH 7QliW7cFfVrWYIyKLJuN6 RisZKpPTuoW415RWkoEoW 4QIRohgIbC8Zd YUAdlZxoWhN0i3Z0Bs5gM h0wOD2yMBJ2AB36MO96nX Utk8B7rBE6F3XzFMSqcqb ledmzwXC9JXYu JHEzmO17nKHjZPxnGx1xh 2C7r740ZDUeWTPswH24Xj 0ggEnhDBLbeAZOfD7kxxv oh4wqudyeYnGh WVAyDYw2LUa0QKPyzHttT eXrAQY5QzW0KWI2oDIugP 4czOogqmodtP1tHvu+NTk gNZLcvwJ5P6Xm Vqh1LMHykAgrHQ6hwEDpW QsgWn7zhXrjmGktQT6qVA AoevebRKChwS9aRKYwvMM cbUrgCT7pJJMq djzac088NgScTOQ9KUUst UApO1EsjD8hZvOrAHFyQB RmF7BudDUdBQhjX228PIn cScM3QYOklkHm Y0VnBKLiaNvaDbH9m2M1V t9AAKlGNZ08RF95fPWxy6 K4kTR4K3UgWIJtlwcxmez luNT9YGXnTVXk iH03wNDmGZlnAe1cg5Y7l 953ZKMoEKOdvW34Hh2hxI piHBJqsYBOsR5qyjxgz6d vcjogIzAwMDAw CWt9DKr6XMJojLhfMmDiR YX9PgG0BZQ5qHVmyV7esW uykbbzbG3iEec+UQ6fetz gtgI7OA17GK33 U9SaZnzdxPGsyNG+PHRhY mxlIHdpZHRoPScxMDAlJy FlzUjjBJ1vIg5mQUXhTKA vbGxhcHNlOiBj w3taYIScKArxKO2fpQigQ 5DseUN3CZUxc5q8Tw39P7 1lO6WcuGV+GQZikZU7nLE 4xX2sAeAlSeK6 WHtqQ552LmRfkDDxPpfcg 7aol7guyDu8SkSzQLSyld HixXgfSHF5v9WpGg76F70 sIHdpZHRoPSIy TPKfDBVigXhlbl1lyQ4bY i8+DPXfsZZ4aXK5hZ4tFp MnFoB8XQxdS270LnEybUF vLmlyO50rX9Sp dXA+ZQLtDke2WMRbiTwzR X1fwCYxIUtrKj7qSRZ5Dr BoAwBrMEmkY6RhKKDaywf zttkjcVR8XBGu VXAqxN57Qf2onZzzBc3xF FGkYKJ9AQDgoEYtF9QhfQ 4wKwDhGBKvKAUvB4GcxQW kKNltY814FKrp DcC5CPNvnkXyK4JuTUDht TngTyV5h2C3Yu3MdSebqB QnIM9tUiFsHVr0C6DnJdx 8VDJavLkwCP3m kJBtBGqvAs7goUmiiHtsR O3uRLWmcnawf835ZwLmu3 uyOWQljCSmZMpeRUT8P18 et9O0NTEyZRBx ROK9vTZ6cW5lhWjibeudk GVmdDsgdmVydGljYWwtYW chH766YDVtbRlyZuPPYit 0B6UsJtu1RDNe zBdpZT7euUCjDRluNq8st NgdpPplNL2mVDUdnnzxx4 92WbApn0vqSTBukIQyWNr aXFB4A36tz2D8 ILQuRKPnJMP6nXP0vW9hx GlnbjogbGVmdDsgdmVydG cwLBxlESkpJ588VDCmuJg pZq5XXqs1T4Zi Cbc6OAJetNozEQ1kgAWwJ NyeQj1erAripRhxGL6yCR Fyffmhu472WmVee6biMEC wcHQgVGltZXM7 O24kp2A1TOFiSVIyFTJ0r ZB3qQ8ksMygwgaofRYxsX grgdJkbVxiDAbmUNaqR17 6IHRvcDsnPlBh eWVyOjwvdGQ+GR40nn07Q 2QtOhruFwn2XQZoFTC5xJ Z7jS9xYHStZRfln8P3kLC 6I4CzakIlcj8j b2x (more content not included)... 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 Thanks. [Electronically Signed on: 07/04/2024 08:25 EDT] Kimberly Jones MD [Verified on: 07/04/2024 08:25 EDT] Kimberly Jones MD [Transcribed on: 06/26/2024 11:45 EDT] [facility] Coding Summaryon 06-25-2024 Coding Summary HTMLBase 64 SpkxliujTRx8eQc+PGhlY WQ+IL1DHXKcZ17ozOZcyE 1oB3ISOEwFKkfqXZHQNWi ZDkEghnLfPJ2pdLWsYEPl IC8+GK4vDXIwHohugOWbp 6G6cQM3T54cts1tIRzseQ B1RTUxMlQvuqffq2cnfTy 6IDcuNmluOyBt MOHfvW22DPB8hI85Ex59u ZJjdIWkn0wicKf5GvLpQE HkBBT4mWkoLGunn6FbHOK dW52biLQje3U0 HASavEattCJiYxAlyLA0z T1eOUhyjzyzj3wybyszAz c1tq95yCBdp7C3mAL2Q4V xvcW1KBUmaEOo DygjlSUQuG5liongm3hbx fyqWqMqTBYfMEo7EQe6CC AtbPirIkSlDX49CBD2FWB izyMxE5AyFJKu jCwhPnK4o9N3Hz7NL4GRR olcI6MDIGWWOJrdsLO+PC 01lg67O0RnZuryWcm6GCG uJNM8lGB6sT4c PMJkHCzxu8B1wCS5O2Aqg oUvjm8ut0giCUScHVhkQ4 9uyWSfv4B4DTGipLW6NTO enYyrPyDdeZ21 Oyc+BBZzeMrjx5TnVvfyb 4ffp6fktSg6RkrxXTZpya WpmWxwWKC3r8DzDa6oRJJ nrBN0bJK4qV5m YxZbNjX7FAzqD343IwWkr NPkWzzhB81rI8YwyID+PH ZfBva4HMDpsFliLE0xD1G hZGRpbmctbGVm eDzrAY5iOIMulyscQCUfc Z9cTXGvN0r1GaGkCsB0JS xzF5TkTLZunbjtYv62sD8 tQzSiVaP9WYjh Z1FdksM8NQBbwWMwTEkdB RJ0J51cn5G7HNFzFOIaAP E2pWU0iE2skRfpmixdlKB mdDsgdmVydGlj VSznMGwjP885ZGQowStqQ kNvZGluZyBEYXRlOiAgMT AvMDcvMjAyNDwvdGQ+PHR fRIO3vEufJAPh dJCiNTqmXm1gzIyqwSnvF C9oAQFsyqjqFOVijA1cED MyzJTypRowED1eACZelku rq678TgJgZED0 DXSnpIIxS7NoiS6jPsOsR NMgWRWdL6FkrKUbWWkbZ7 50WOunIeC1LTMnxgSbF9C sLWFsaWduOiB0 o5Q9Bu5Sm0DbtvdpN5Yjb AMbCsSlFxjxHLc0S0PpHg wvdHI+DT85EDOcLG14HZo 1BRA5fKykPXer YMScY2DfcZ9aZtGlSQGvG GRkOyc+PHRhYmxlIHdpZH RoPScxMDAlJyBzdHlsZT0 mUc5bDWJsHGRx mMfmpDDnEnVxq0vsULZdH XonDB0obKadZ6GonDG1QM Hun9q5Jc24B09bW1EhxMH +OLOoiRF4qNC0 qO9aAjUuNdN0RBylX240V vPyxOTmTxwzc7izy3hmiZ t3UuJ3DCDnceYnsCrrJUD 3x1FeBf14A07w IHdpZHRoPSIxNSUiIHZhb Ftbaz5jcV7wDi2+PGNvbC O2jWU7cA6uLiSmCxH0KNf jI286YbNoyGBx Xvpkl1qkx7vkqVq8KmDeD UBmtfNrkQveANI5z2VgIb 51Q4BpuMicc5TwInr8vf2 6oIVwf8Y6pJL4 X3ThSJDisuhvyQSyoHtvG U0vOFRmzcepEFGvbZ8qXK HdD1k5PpGtScY1GDnmT2F kykT2NAMprOCb SZZdcQBHxK2rfrqmv6jyr tkqPqVyLBQzGOs8YDw3AC RnqChqSaOhSRJ5BbO6HDR 9rUJsjB6mpIov yaortP2nWmb+FEJ5wRYxl CFYZO0lCogyzMD+PHRkIH P2nWawNOalYQLxrR7bKBR vF8d9BbUqCjY7 ETgrH2MvbyY8IIFrlYPkH NPbfSATzU9wfbdmn0sirc izUwWmAUHoBOo1HJn8ZUS saWduOiBsZWZ0 ZjE7KKE9wCYzkN8ozDcsq gilqQ0rZdr+QmlydGggRG G9EZy4I5YuJgn2FPAfdGk rMY7npSIeSIwn Kl8ybCpjpArsKU9dHJAwq xxdz825GtJof5thKJEydV HpUIucWGL1J18xg9M6SMQ fRFBqMGZ3vAG7 pB6pwZpcawlncICysJvfy xJgiEcfAZvjNCbmP793CL ZapPbvGkOlXEx8P0YoArj 6NQSyxZzuUB7q yBThDNruOr7xnXwfvVhkP W1sYQWkbwxsk219XsReu0 btRKHjgPEeRWsrCGV5L70 qw9U8KUMyDAMs MCQ0yWZ3kV9ruRywtupiv GVmdDsgdmVydGljYWwtYW uiO388LSFmbXifFzAdnBu 6J2HySsw5YIRw vXbuJJ4yrEXrHPcdLc9ou PmwaHzlSY1sZOParrgze5 73YoPqq5lyIZZptMDhSHn hANR0X75lz4R5 VWRfYVTsBGO1bUM8eI1mu GlnbjogbGVmdDsgdmVydG ldISfmZYbmO158GMRnjHd nPlBhdGllbnQg TOgwFDd9U1RdXhlwrRZ+P L83CVHcUD79uPTviBOju3 xwyHt5JzMzOGXpCYZ9hDs nJMich1QkPDJu U97aaYPxv4D0YBPrhQucf EDnDbBsjDJ7yR6bXAxzbk xvi4bjryacLvmlo5kpym9 6gD17V55xSBcj ZHRoPSIzMCUiIHZhbGlnb e4dxW5iLf0+FXBclJV3yD Q7zB1zCDTxRpK1SCjtA82 9InRvcCIvPjxj m3krr5sszOg5KwS2JUZcd lTiqCleTZD1w6ZrCx43A1 9sIHdpZHRoPSIyMCUiIHZ jjCtdta5lhI1l Ii8+GLWalGR0ePM6mP7cZ jToHtP2FUggG789UdJkxR AoPrgzT98lE8KvsEH+PHR nHuj2YPHlrJhk EI3ceSIxZNgwRw1iQNV0E yFeBuTjJWvgD6QbYNGghb qlgqfcyAG7SBNnLLEgzO0 9Km8teQrzMEFr gTTJaL0mdkscz0pytgrnO mTlAYYpCAa8FUa7BOQaoA vrIcOtEET8HdN0ILP6xNJ euN1nrHkunzji eD1xP8BmGWUvhqxrZu80l B6mGvJvIgJ5SIxbQuh+U0 KIHYIMLqtbFAEAD8mgZHn BLU71S1NkVnc8 AKSciGocCR8npMQlPVzfV p3knZsghDroGU0eEXLaed ahWJHmtT6bBGMwrUVopCt wCV6vQZGvklya s438VrLyJJF2XLPscKWbC 3UdpW1pUtLpNWLsCDUfW3 LvcIQhDSinR205MDvtSeY 1JJPvijYmE6Cm ASAtcFgpNxP1b2V6Ry9oY d6tKL3lFPA0HJ50ER48cB Pdb5I7lBN0U6RnVBSeaew khnqxmXJ9QVWy MIJakJ01fQCuXGyjHn3tc 0T0n845DLFjSFAtcP65Tu 6etEnsJEJnuSPVaF8pmiy ge6ufilbvUdQo AGWaLRd8JMl6MMDsoGxfQ wEoJRR1UeT6XJV4yEEolQ 7uzUwheblrnO5pBfx+NTk jAUKycmR4W3Ka Nzj9AKLvfVrkLH8xeCZnC QekIs5seCfsmSmhUE1pZG MkwxtlNDDkvG3mYWNcoLJ apLapKT2iBGNv exaih028QwFqWQF2DSSmb GSzO4MfrQ7kZhCsEARiPT IuK1UpoKXeAVqxH347HAt lBwU9KKItxcLb Y6EhSCKivWubSrJ6m7M4Z m4FKBcOHA90NU56rHMra7 Y6sTZ3C6TmJRJjwlybfhh qdNJ5BURkKJDv pZ96wYBfBKxeXs3nk7C3c 487NLHqWVExaK88Bt9swY vsSCOijLVWlX1kfxpqi0v vcjogIzAwMDAw AIl0YSb3BVEnjRfmAfLiP SE5KlY2QYF5nGVqpS1xyE hgdfrmsV5iJoc+X5S7R0W kPjwvdHI+PC90 HVLxWS99xCClpPSzd6geo Px8TvBkXJShMXG8kFaoFL tjv3YsLLAcL01heGRyk6U 6IGNvbGxhcHNl HiPqjCH5dR9zCZhmanmjh 5etvxlpItmpp6cmud17xU 99O64fXMcrJIBbEKAzOAR dHYMrmHehre5g dQ2iRf8+JLBnpYC5wCQ7p S4aKdFkWoL8LWdjH098Fr MpfDMkSdwre7qqm7cdfIt 9IjIwJSIgdmFs zLrqFHO5t7RqRe08B28lG HdpZHRoPSIyMCUiIHZhbG omcb7bmV4hRe9+UR9cs2e oid81uU12sJN+ CSFfJRN6yXpgOQfwMSTbn X4wNHngAlX5UGCpClGziE 74aWXqRMkyAj2oeZiunPr eOO7eZZWlbfek k070KyMye1txPSAbeXQoZ UgrRLP6B65av1L2DOPnDQ AtVJQ4iLV8mL2brBctems gbGVmdDsgdmVy uSkpZNuiKMevE054AWLiv LxuDnFgmLHdZ0sucqZRQL 1lOjwvdGQ+HLDyGVQ0yDa fKVhiTEUcxN5g WQMvK7k3InBuCjK2ZMicP 6EdssJ2GPYlgLPgNOZraW CPwI1idmmgn5pxrmnbByH hAVSgTRh5LFy9 NOQkuZlhMiRhLOH3EsW1H KY6aTYygL9gcAshciyvfB 9wOyc+RklOOjwvdGQ+PHR aSHN0xFetTCla FANdaE5wHWQeM5g6ZlSqO dC1STsjJ1KmczZ9OYCxgW CgIRVszLZUyD5cvafai8b vcjogIzAwMDAw UId0YYx1YBLlnIrmBeBzA WQ4PeR6XOX4hGXhpX4szF vdcftzcC6aUtj+TVJOOjw vdGQ+PHRkIHN0 yGeyVOolJCLceL2oTLQkN 7y2MxHdJnK4CWuwM0Oknm X9BZRpyVMcYZOpmMDZjZ5 xntltv8qbehgu KwNuGNHaENj1KNi5NHGwy QzjAkFhAFQ0FsK7ZNX3yY EmgI2drUhoehgzbP4mHwh +ELU3BLB8WE53 GM55C8KyFkmwrMBduJS+P HRhYmxlIHdpZHRoPScxMD MjNrSoqAwxJU3hWh8aHGO yLWNvbGxhcHNl OiB (more content not included)... [facility] Coding Summaryon 06-14-2024 Coding Summary HTMLBase 64 BdrfthhzBXl9rLi+PGhlY WQ+SL2JWBFuL18llXZyqC 6kS9GSLDqZQwhgVEPEJWj DNxIlsnGaQX4kwVXgOBOa IC8+ZT9mIBMeEctvdMXtg 9R4jVX1K26imm2nKDvijZ Z9QZFmJsJrqlnfg7zeoBq 6IDcuNmluOyBt PPLcxN35ABL1yN08Em47v HGeoRQwz6zavMu2SrOeXC KkFGA8zEspSJlsq4PhOML tE41jpGIcw3V2 BLDfxJeuqBTiLnEdgAD2w G6cKWvqvshyj3mleazuGc m4xw47gAIoy2J5lMB3M3M otnR6NAGxvLHv XigmwQCRtB1rintkk7pkv plhNrPePHQrCDh3NCg4KE SdiGgjBcUzDF21FRQ9PJO mjtVtH6EjPWQk bVtzNjW8a2G3Yr9YQ8TWL ghiQ4YQDTKCBQdwkQG+PC 02xq62C5WhVzqiHqi3RUU aHWZ8oVA6uC6f IKUeYSrkn2Q8kKJ8R0Cgf qRhng8tr8pcZEEvDPuhO2 1msVYfi6I7UKVeoKV7XQB toVbeXeIxyN46 Oyc+ENAjeZxbl4BsZfsnh 1yul4mceZk3PzbdDZFedl RpnHbeDWK1r3WwRj8mHRC whPD3fUV0xB1z DgKjLtV3PYnqN983IaFsi FGjVerpS08iW3SveTM+PH IsLyw6HZYqtGtyCF3wN9R hZGRpbmctbGVm rLpvZL7zRFNqcvrgYMIcv Y5zQJBvK5m7EoFqBmX2TV wrY2NhRLJpuwzqDq98nJ6 wBpTeCsN3SSxs M1NguaJ5CUYryZVuBXjwP GK2O36ui6O2AKUjQOKaFO W5tUU2fU5syLxfikzauCI mdDsgdmVydGlj LWhqGXxvA091WMYkzEblF kNvZGluZyBEYXRlOiAgMD kvMjYvMjAyNDwvdGQ+PHR pSOG2lKziZKYz lUDzUSogEq5izRifxEihY I9sKLVfaqfqXKHgwY7hGV MfsNQzpYhkIT2yWEVolvh ll122KnVrUFQ8 NKOmsYKoA6QqsF5mXdKgE YWiEAJaI9CiqPBnJYluS0 04ZPnyOjT2GCGfthLrG1H sLWFsaWduOiB0 y9Z1Af0Dp8OpnapoI3Ucw BMaEpWdQzvfONf4E2ZuGl wvdHI+VN23NWYyDF96HBx 4KTC0dNwwVEod CIUgH1OzcH5jPySvRNOgB GRkOyc+PHRhYmxlIHdpZH RoPScxMDAlJyBzdHlsZT0 yGx2xQUOlNWWa qCnvnLUxXrPys8zzOSMyR KriFH7ebZwjW7LaqRC8AP Obo2s9Uc72C74xC2SxsVV +OYYcgET1oNL4 vI1aSdNnIdY1KEzgM563D lAshEDyWxzqo7uti4lbzG h8HjV9FESkanUezSluFII 6u8KvCk55R70w IHdpZHRoPSIxNSUiIHZhb Mihxj7ngU6uVj8+PGNvbC K4dTY6rK2lMqXkAuA0RHi rP503OtBzjAPe Yfsos9taq6kvkRx2SqJjC RRkbwEhyWeaIZZ6p8SaPp 26K4VhqUgwv0KjUpd6dg3 4qABaj5H3uSD0 A1ImQUIwdqosyHMnhPsfC X3nDLDwocofRAYwwZ6cMG JiX8c1BsQvWsP7CNjsQ6C pkhO1FOAbpVJo VMJpcJQRoY3iuuvay8gpb lzfAnTnYPTlFUz6OPy5PQ LlqMiyPtKtMYF4PzG4IPC 9xDMduY5znXer mkbpuR9hNjn+YJC9fWLpb SCYSD2oVaoosKS+PHRkIH X0bKdaLMwoMQUylY1hPOB eL8f5IiJsLgK1 YXpbH0WpetD1OQGzzBNwJ ZErdNTYgC0dstpyz4uhda aiWeCmMDPrKLp7DFd3ICH saWduOiBsZWZ0 HeB2LCT1zICitY2mgBixi lmufQ3xNkv+QmlydGggRG D0TWc9T5EvJbz5DYAthHi rUX6ihPSjLFhu Iy9vrQrkbLsdOD1aKTBln uhew704KfHpf4woTXKowZ TsVQnpHIE0S77qg8A0YGQ vFWMaIYZ6iRS6 lU9ipKtswkgzoQTzqUadu wIuxDqeJBnrAKvqW553GM GaaTahXwSiHJj6W7GtVaj 4GMBwvChuGU2q sIJpMAwwRr1yzWqgwWyaS Z2qRNZtqxvhd032TrWzs2 dvSNZvzNHqLCqhKRR6W75 wt4M2MFYuYUAs HXA9sRO7bA2yxFtcgowek GVmdDsgdmVydGljYWwtYW fkX888GTAvgPxjBzYhqOf 8B6UfZwu0AFGv lElmLX2qmIEqDDxeBx8rd SmjjXvpGE5nSLYomshqh6 82PwNlm2znFNEwqCPrZJo mWNU1O58hm9R8 JOKfMTIkNMJ9fCZ0oH5ub GlnbjogbGVmdDsgdmVydG zhZRhpDDieY705QWTwsOe nPlBhdGllbnQg NPflULd0Z4UaAylsuAX+P F59OILuSB60aGWzvKSrw9 wllGo9UaCbKNPmBDU6wSf xJDbnd7EaPBIe P75ybNEpi4F9QGEtqJtrv OWdKeRtpCS1cZ3qXFwuaw bes3kbelugEuhip8imef3 6iE46Q43bMFzq ZHRoPSIzMCUiIHZhbGlnb c8aoZ4cUe6+IRRmlNF7dS Q0pZ2zDDUgNjR6KTpzC46 9InRvcCIvPjxj j2sni4yggWu7IrR9LKWow sUanIcuJDU6p3VsCt38Z8 9sIHdpZHRoPSIyMCUiIHZ gnSswvg0dyI0i Ii8+QROqiCQ4rOM5pX6vB vXmOeT0MBnhA443OmSfrG IxWzvqM26bG1UouVG+PHR yCib6ETAzxMdy SK6yuPDsGRrdDm7hFOD9Q aQdBaXlFVfpF3EvEXWiog ijcnuhgKB0KJQkPXAbtC7 9Bb8vtEynRGSd lSXMnQ7imqctj0otsmkxS bVjTOBySIy1DSt7IOUjuM tbNuOkWSW0PcF7XYY6oMV mlC9mpKyjnjoz dP9hC6CbJLOcurznNc60m R8cBqBtBeV9JWgmSyx+U0 UHGJJUOlmmEJFNW4byKHk VQT06Y9FaWgf7 AOFaxTjwLS7eoUQuMJqpJ n0oeUjsrNwjOU3yCDRxxu otGXNnaO7oEXDceLPhaWe fDC9lHVLoyngr d615GlIdNJL6NVRcoHZhD 3GjzB4cRfSqPBEuJKAgS4 MyeGLiMPmsR637JKsxHwK 2WVIrvlVsW6Kh HDTfwKifNqH7r1I4Az4wR l9rYD0xNNU9EM80DD83lG Kqj1T4gMA5Y5HdXITwqzg kpkcncZP1JWKc QREkgH39eFOrYYflZw6ic 6B8o087ZMFdXHTyhK52Sb 2gaIduTXOdoRWXeF4phvf qt3qyxvnzLkCy ONNhFDw5VEy2PFPzuBgnB tQiSFS3KoS9EJL8lEPupZ 1ffGtxcjkovZ1rGtp+NTk pUWObouK8X9Nw Apu7HGEhbJrbWK5hxUKeH SkoFf1jjNedoTyeAR0rAH EylefaWTHwhF9sPPFoxRJ stEfqAP5jIWHp iizzf967WoArTGE9UWDom XYbP5ZizQ0vZpEuIHHcVU ZyD3RotOFiQBhwQ751CNv zCbE8MJEsgrDo Y8HjONZwwFskRtO1i8J6D n8RZHiBKH36EE42pKIwz6 M2pII4X8BuQISvkikwkrm xmKV6ZEHfJESx yB45wNQeLObrKm4ig5M5t 843EXNeGXKivW01Yk5hwO vvDBDuoYHUwL9kneouy8k vcjogIzAwMDAw IPk5MKu6QGTwrVyyEfQcQ AV2HnO7AQM5vJPjxC6mtD cahgfdyO0fUtd+G7U7R1A kPjwvdHI+PC90 DOKkKB48uJUakDEjp9cyk Mt9ZwEvZCBiIPR3bHuaWG nuw3UmNOArA63syCUaw1F 6IGNvbGxhcHNl ZkSxpZD2gK8pFUppeijwc 7kcdsevHngvh8rtzz52aV 56E71fEUjdYYZmECHtVZL dJHBiyXoiis8k hQ8aMd1+KQAwcTL7vXM2r M3yClHeYkU4WGmdH940Bw WpcZGqCtkok0yvk0gpnHa 9IjIwJSIgdmFs kJnmSFF2r5ChYv64F96fU HdpZHRoPSIyMCUiIHZhbG kojd5rwN8wEk6+LP0yg0y wqa50xB23yVZ+ CVCzGSE2hClsHAoiBQFfc S2lXPttWzT8TIUpUeHfoX 45bODrDTdjQi6smUhwuFv jIA3hVDSgxfnc e100KvTxd5ubZGQjtIMaD YhoNRP0H01qg1R8PMEcDZ PoRWK7vMX5oM9gtRtmdhh gbGVmdDsgdmVy pXybJCfmKBoyH768WMJyh XztYwSjtCOxV1xdhyOLUT 1lOjwvdGQ+DYTcNHK2hNz dGJooQWUsxH3w DBRfG1c6XcHsQcE4KUswF 8CjloT1SWOtqXFcWNPitC ITkL8tcowyc0aqibguNiF zWERmAOw0GQw6 QXEdvCnuNeSjETL5MzX5K GZ1bEGdgR6yjFauculehE 9wOyc+RklOOjwvdGQ+PHR hAHH3jFqlHQdw WSNvfZ2wRPAzG1f7TmNcO eO9IJbxW8TstgN7ZXQstE GcKHTiaSUPwR0tqaikr6y vcjogIzAwMDAw TUb0AYk1RUYlvAbiVsViM KP3GiI0GRW1kBPtqL8xbV apoxkxhL4fFuj+TVJOOjw vdGQ+PHRkIHN0 cVaqETwnBMVotJ7hCDOzL 3p4DvXfBmR2FJyoB2Yxba X1UIHofRMdTDUsvOOQyM9 ixkljg0ijcmwr UrDzZOSyTCg3ISr2COZuu EsmMeBdWEB4YlT2VAN1bL SktY0gxMfymmuocK9tRwb +DUL3HDO4CR96 KE57X7VqSevjwKWppXU+P HRhYmxlIHdpZHRoPScxMD AtOdHisNebSY4iVv5wZJT yLWNvbGxhcHNl OiB (more content not included)... [facility] Consent Formson 06-13-2024 Consent Forms [id number] .00OTGTIFF [facility] Wound Care Noteon 06-11-2024 Wound Care Note [id number]#1 .00OTGTIFF [facility] Coding Summaryon 06-07-2024 Coding Summary HTMLBase 64 IpvaywbvQWh5zPb+PGhlY WQ+NV9GVPRaG06fcLChbL 4yS6AHGEwGGawxZSYPEKe LQfRuuxVlFP9ffZVuCGGu IC8+OD9mKCDrHnijjDOyu 7X2tBV9W76cdr5iMEyegF W5JIIfEiEwjxdei8creZw 6IDcuNmluOyBt SEFssZ64FVR4hJ44Kq41s ZLjzLYjv1cqjIk6QxMhSB ZfQET3jLotCEzuy6HiJHZ vN59dxQXyr5E9 PWEljIxzyNRjFcReeKX8l U7aMXsmabfkb0mtbohqWk x4on08bGIoo6M7iRP4E2B ojyL0IAZanJBw IgkapIQNxA4epsfzi5exh sxsTbStQXVwLKl6DLc6ND RjfBsjOxHxCP63KDK1AKM dphJxQ7UpUIUr nYlkAqO5l8R5Uj8MY9SOH gozP4FAOYXXSJamhIO+PC 99fm95Y3YkTaupCuq5YQI oIFN4oZP6pC4q QYGdKJvte4H4bWN6T9Tvn kKmjp7sw9suPGEdWEhfY9 0txXQjt7I1BUAtnEG4HKM zpOqeKhQmhL23 Oyc+YAJrsZgzb2HfDbvlt 6rwi0eroFb6KfouYQGlpv NhyZvwMHE2t0CgJs2hXWR ufTC1tSH1eI3z OjTzNqW9LGxhC480SaGjl ODeQgntU92dF5SqgVP+PH MgAsn2MMAvbSswAK6pE0K hZGRpbmctbGVm wUgnEM5mKBUdlxmwMPJzx M4dZQLsF0k5ZhWoElU7CL fqC0BkHLNvrfhzQo92qX9 lDhSwFrY5OQdt R8AzzrK9LSAoeREhEEaaT FE3P89tn6F9DOBbTEGqQO U3lBX1uM4urDvnfhkrxAZ mdDsgdmVydGlj SYbhZJtaQ455XXLkyZkrV kNvZGluZyBEYXRlOiAgMD kvMTkvMjAyNDwvdGQ+PHR vTHQ0wSbeFGYf mWQlUVfwId7tbTuewLqdF C6kTBYybeyoJHNwhT8vQT AfsWOnlHkvOU9cOLPdola gy229AfMtUXI8 EHFfpAAcY0XxqF9zAdYoI WRzCIWwD8CtwHMyBEttX6 66FYxwFkH4BTIkazEgO1N sLWFsaWduOiB0 j5K9Ny2Es6ZmvgtuW9Jgs HGeLcDzGogeIKe3T1VeRk wvdHI+KH65WUMzES89XGw 5VIX1bWxrJQvg WVTeE6CwwK5wDcUeSGHnN GRkOyc+PHRhYmxlIHdpZH RoPScxMDAlJyBzdHlsZT0 qSm0rWOYpNANm zEaceJFyEeMlz9jcRJEmM ExuXX1snSkwX2JvoGH2KO Gyv6c1Nk23Z69iP9JmfRR +HJKmyIM7xOO3 fZ4rYqTsOkT3XKldB768E zZxsXTxVelys6iak0xasF m4XdD3XHAuawSdzJovDPX 8s2IoNe99K81x IHdpZHRoPSIxNSUiIHZhb Byeht4xdZ0lOf2+PGNvbC R6eKX8zH5hAzUuLyW3HOe yE156YwPqyUAz Cjxcj4njk4kmvAs2UiAuC BQshiAmmFfoXGW0f7FtYb 23Q8TdhQvak6AtQnd7qm1 0iOZum6K0wTD3 H9JhGQYvqsbejLNfdKgzG Q2sXLFonvzuMIXjsR1kBQ AaX4r8CfSlAzR3DMerV9O ltlO9XFNrlYKs PSVqySRUxL1idkibn5din gkiRaEbOBTmYNw5MHw6ML QuaAbrDpCxOVJ5LkE5GXW 4fCCzoH0bgVmd mhvasA9oZtd+ART6uECrc CMKIU3wGxmepFN+PHRkIH M2xFdoWNkqMYPetE9sNEX dQ1f3EnAuCtB8 EGscN7CxtrQ8DOKtjKUrV NYbaAKQyO6fvyxub7aypq iqEpNcGGBfNBx9NHt5OYJ saWduOiBsZWZ0 UhR9XZI3iJBrlN4sbJqyh joqgF1mSzk+QmlydGggRG D1MMn6D5HuGgi2KGKuwBo bRS9inEYuTDmr Rj6zlVfcpMmbNM7pXMDqm ujgo122WhVet7chWJEquX EyVKeqWEJ3M56nl0L6WGO eBTLdZTN5pXW8 hJ0ruDnfeztgvPNmwPeek yRyaMbcHZekWRwgL064JV AtvQtzVsCmEYj6S7KqFac 3HSJovDceYA5c wVPdXHyaIz8geGodiVnyQ L0vQVSgvumvf491OpUte1 kiBYDnxVMtEUzbIAE3K15 ve5F4HNMbKJHz AKL3hSI1eF7jfMalsahgp GVmdDsgdmVydGljYWwtYW nkW176DEIdiFguKgNbbDa 7A9WvPfp4DQZz lKimCN5ikSUtBZncBj7jb PeosIndQV5vBOEpxbcul9 93UxKlp1bbTEPkmHNoOMl mJFZ0Q05gz8K6 VHLzRVRtLNG5uRY5pG6sg GlnbjogbGVmdDsgdmVydG hmSBtlVWchV586FFSobSo nPlBhdGllbnQg NQzaEKc8E7SmQcicvHS+P H20ZQCdSU52rCXqvVCgc2 zuvCp9EcBkMIDnSWL6aVm gAMpih9RpGBYj T30kaNGxr1E2EQDfgSrky JThGyFghYT2cF5vUEwyyp pna2yirjzuHuehm0rdnz2 4bJ14E75bTWkw ZHRoPSIzMCUiIHZhbGlnb d4aqI6xHt0+ANJfhCZ1nH B3wT3sVYLbNwY5FKtlP90 9InRvcCIvPjxj d6jlh4ypwVe6WaA7GLCwp cRpwGzeCRS3f1ScGp27D0 9sIHdpZHRoPSIyMCUiIHZ eqBipnx2bqE7n Ii8+IUClkWI9uKS0nI0dG tBvToE5PXpzY490VwWfyP HjMzgoX46wL5IfmZY+PHR aQoc5BODjfNtg FY3nsVOaKEneGk6cIYN0Y zFpNeKmRLfmU8UmMBTnmq xbciamuBX9XJNoNMJzoG4 3Lo1ktEhrRNHm dKKYvA2yxmnat4smgoelF uRoEKUqDWu1DJs2ULJlwN rhVtXkYPT1RdY3LQI2vJK wiS0goGkkqfbl fI9uL2NoOQQegozuWx63r T6xLeSsXlB9YIdkYjj+U0 LRTDSYTsohSIUYQ7ybPIj QXM56L0MsUpe2 QQQuwOdfVW8obMLsVLhiZ x8hyYrymSmkHR8uEGLbkk shODTovG3jMCNwaGIgoCe tSY6xMXUvrddj d535CqIkEBF0YJPzkAGvO 3RpqE8pTqGrYOJpRZZkO2 SjgQLdUIxsL779ECdbNaQ 1ZPLgjzVgZ8Nu MKFfzUomOpR5x8Y2Fr0lG y7nLH2xKRW8PZ00TS82bM Mhj8M7iUU2Y4NeAMBlsxj yepxdyOI3AZPc YLLyqB87pIXjSHdoCv1se 6K8h444BDNrXUXijL02Ne 6utSpbXBDygFYPwK5fwku sp3jxnbyeAfMl MOPrRWj3DMx4SNBpeXrgO fCdWDN9ZjK3GMH9wPAccJ 4viGlcywbbhE3eEwl+NTk dELZzyxL9I7Cz Swx0NOScaEneYQ4dnUHtG TdyCs2duLspnUphZB6bAX RwjbmlXELemS2dREDujVS irIxzTM8aIWDi jbhpa368JuGiNAM1WVHvx GVlS6WrhE4rAsQfDUGoCY AmR8HeySIgIHblT967XLf uYiG5KPDzmjMp G4ZnMVSnlXrqOrT2i8Y3G j6PXYeBKK98SE92lNYux9 D8rKG7Y9IsBEYdprflxio pkEW0SJWkHZWl rJ26kWEcYQybLb2gk9A8f 391EFDxDEWmvX54Ql7pdF siMJIxeXJQzN7zrmayf2b vcjogIzAwMDAw GEa8QMb4FWEzcZilBrPiX RB2LdT2YCL6rYCyyC4fhX bcbfitjS6iBkd+M1Q4S6F kPjwvdHI+PC90 FOEoKS12cUHmjAQrg3rgy Zh5VzIuZZAmJUU3gTjiHG ivm7PvHQPuC17zgDDkq5E 6IGNvbGxhcHNl WoUmeGC3zJ1uBJgsjfeqv 2kyouykQlkeo4uwep98qN 43B94zLRvpDNAeNJPtAOW sETJwlKdwsq0s tS3sYa8+VWHcxXX6pRV2v Q1iNiWvJgF2XIotJ119Wf AlkWGuGzdvw9gpk9mimOq 9IjIwJSIgdmFs bJudXHV6l9JmRr09O20tR HdpZHRoPSIyMCUiIHZhbG mkfl1qhU7nQc3+NV2jq8s twq73wZ54aSX+ DKDaQDF5vGupFRykCOXly A9fAXsbNgA0QBPsCvEweN 30eNWbLGswEi7efHrjcGw oXQ7mTFThwuvv b776XtYvi3pfUASvuDJbS OjcBXY4C36ii0L6GFUaFT HtGNR5iSG0pO9mhIosnro gbGVmdDsgdmVy jBtbPYaoSAjeG519KFKdk ZxbSsPufXUgE5dxqfXCNL 1lOjwvdGQ+ZLWbXYO7wPj rBLeqAEMsbQ0v AQQeZ9y4AkEwRzS7LPkbR 3OyxpX3VTPhkGUjUIGelL TAaG0nixgzx2ktjdiiLsV aFQBjTLw3AWl9 ZBKybEpfFwGpCPS4ReL9H RB8nSYjyJ1iaAwkvpzniO 9wOyc+RklOOjwvdGQ+PHR iAJD3fQesTMbw TUAeyA2jUQJbX4g8WsBmQ hG9IBtwR8AkuoY0YEJgmO CdSTRycFJXyS7vzuarb0b vcjogIzAwMDAw KDz7DKd9XSRzwFzaLbQpQ CG7YkB6LGV2bFOxqA1ooV jfwgwddD0uBbh+TVJOOjw vdGQ+PHRkIHN0 wKuaAMovAEUheO9kXHTwW 4p8BqVtQdY3COjwH6Seeu K9DVDzaMBlHWBwnYHBqE8 pjxnyp6yhrsmt PxDeBVVqSBa6HIl6AMSlj DtxEgPkVKG1FbA2QIW3aD ZmwK3bhMftjmxtgT6pXht +WQY8SCW8DJ05 DF99H3YfJnxsrYSbcWD+P HRhYmxlIHdpZHRoPScxMD MoWwKcgRujFR2zTx2gCMN yLWNvbGxhcHNl OiB (more content not included)... Normal [facility] Office/Clinic Noteon 024 Office/Clinic Note Patient: [...] 139.210 kg Body Mass Index 40.67 kg/m2 [place] Body Weight Calculated 79.52 kg BSA Measured [...] was normal.. Impression and Plan Diagnosis Diabetes (ISE45-KP E11.9). Plan: Discussed with patient we need to get him back on Ozempic to try to get his blood sugars down. Also that he needs a follow-up better diet. Prescription for Ozempic 0.25 mg weekly was written. I did discuss with him possibility of also going on insulin therapy. He wants to hold off at this time.. Orders Orders Evaluation and Management: [id number] Office visit - established pt, Level 3 (Order): 06/07/2024 10:19 EDT, Qty: 1, Diabetes - Neck strain. Diagnosis Neck strain ([id number] S16.1XXA). Course: Will try different muscle relaxant using baclofen. Also a steroid burst. I did discuss with him the steroid burst over the next 5 days May exacerbate his blood sugars.. [Electronically Signed on: 06/07/2024 11:36 EDT] Balwinder Miller MD [Verified on: 06/07/2024 11:36 EDT] Balwinder Miller MD [facility] Coding Summaryon 06-05-2024 Coding Summary HTMLBase 64 DimrjyciSKp9pVh+PGhlY WQ+TU2FMQCsY74rrYOsjO 7tL2YOVKnQYyicQFDKTNy WJaOymnGxRA6ctQKcLNPr IC8+IC3qXUMhXgvpaFUwp 4F2fTW0K29jjs1kQIafvS K6UOBkKhBmqtbyt8jpbSj 6IDcuNmluOyBt JGBkkO88HLM9eM74Lo68l SRhaSTme2wrdKp2KhEkND GiXPZ6fGusRLfju0OkSYL sV28bvEDde4X9 LXHanWzdvAPbMmCscTI0l K7eETmhsybco1hxkojhJl x4jp14zWPas0E0kWF0N5T obdG5LXLviDEf ShcrcJCAzQ8gbjvee6gns vvwUaEaOZLoOHl3XVc5JA HuhNqzRsRrSD22BDZ6CBT ufoThE5IoACBt rByqJlF5i3Z5Kb1EB5NHH hmqQ7DKVBJOITrmuDW+PC 84ma60N4JlLocoVno5MGH pBFQ4wBI7zV1m LKZpBIeue1S2zKG8Q8Ixm jLikk3yj9mjAIPdRYgjR6 2zeAUus5U9APFopKQ8OYX hbNxfLcEsaJ57 Oyc+QQBmuKkhs9EaPubpi 5pnx9fbgTd2AvjyRYLowy GpzDlaAIR1p7XhPl7bPWM ffUX7jCT7oD7l JqQkDtT4QZghD576HiPnx FJcKnfrL96xP8PtmIH+PH ErPiv0IXEmsNgrGU2uY0A hZGRpbmctbGVm aXqgQT4dEBGmqyfgHQLqs S0yZGJxL5m7PiRdBrF4CI ziM0XjLNRwucfjHk90xS1 tXhSlAfX9CZra M3BtzrM5UZLvgNDhKWisF BI5S63kr1D8CAMvKQJrTL X1vXJ8cM2tdFnrofbzeAJ mdDsgdmVydGlj FOskDNwuC368FMTtzBqcB kNvZGluZyBEYXRlOiAgMD kvMTcvMjAyNDwvdGQ+PHR mDAI1vAogBTSw lPTsZAdxWz3yfWzqeVhlV T9vEMEuzgccNLKnkU7gQM KrcDQhoOfsHG3sSONhszt bw030AaJxTSQ7 FTEmcCDrO4EhkC0jJpNvX IKpBEAbJ5PsoVAbWXgaQ2 76XFmhQsY0UBEjeiHnK0H sLWFsaWduOiB0 z8N6Ka3Gl5QwpvirB0Jaj MKcWmKvUidcFFr3Q6ObDm wvdHI+CB41QJSjRS59LTt 0KFI6pPonYVts XKBuM2MdiI3eBzFuYXQqJ GRkOyc+PHRhYmxlIHdpZH RoPScxMDAlJyBzdHlsZT0 mJc9zZQIcNJOc aGkjoLDsRfMdk7kmZSIgR CgsJU0sdZuyV2DdzCC5YG Cum1y6Jc12B49nG9IsvXR +ZOOcuHL4rXI2 kF8gTbOlXkW4KTyuR975T bJkfYYqNclij6rqc4lbvW d4LuR5YHKogmBvbCbsZSK 5s9MaAq97W17x IHdpZHRoPSIxNSUiIHZhb Fhqdm6skA4qCp8+PGNvbC O1pBU5dR8lQbOaNzM7ORn oM472LkRpdESs Upysr7khp2isiDh7TjOqF QQixrYgfOldKJF1z8JrQe 39U1LbeTgqi9FmXrp3km8 7kLFfg7S7yQI2 G1AjYOFmggyluGRzoUnfX D2xLSZqkvxxYCMhhC8kBV TiW1r8PzSsShS3TKosU8V clhI2KQRphPOm TGKfvJNTzM6ddkzpa8uda xdwYvQmRDWgIWi0BRh6VE BbfLrdUoTzHCP1KvR1LIN 8bFPdmF4qlUph qmobkI6sXhv+NJU6hODkg HEWTN5lJnoafFV+PHRkIH C6kUqdSHwxWSUavP5fUQT vB8a5EbAyStG8 PPfnY4ThpbO6JSSjfWGgY VQgiPRZtR2ocxhqg2ywur jeIlJyUXYoIRi2UGd2YCE saWduOiBsZWZ0 LxG0TWW9vHAmqS0xwUpzq sknuB1lCfg+QmlydGggRG V4TEv1T6QuOyg6KTZfnZj mWA4tdBQcUEhh We2gsSslzXvlSH0xESDem vxfw119NmNqq7ixCVZiqR CzNEwtNMW2T46zc6K6IJY iLUHwPQT2aMO1 eS4njQabgmcqlGBbqDkcm tWgyRkhAHzbBWcwK099YO VeiEbaXaNpQTk6C1JaMys 1LUSmuGxsEH6s qHKsYFskKw8guLzpyCgqM J1bLGXjsnrfd081QqWgf2 auOADyxYIeGZsaXFY7Q78 pu8Y0UZMbORHv ORB4nGD2vD5kgEzpqbuad GVmdDsgdmVydGljYWwtYW rkI990KJTnaQdsHyNtrUz 7O9ZqSof0QOUc kPhpOX9rqVCsZChpFm9vb UtguSqsVG0qJOXjhaxql6 76JdRzf5apXVXnmUHgLDu cQVW6E67vb1N3 BFGvPPWfXGK5mSI7gH8kw GlnbjogbGVmdDsgdmVydG aoHIjzSNsbM509CQGxiEm nPlBhdGllbnQg UDpfYRm7X5JgMfvzoUS+P R17QGXjFN76bPBiuQZnq6 wfmFg7NoUoSLVyDUI6cLl fHGtls6EaTRWo U12ewOJve7H3ZFQxhGcje GJeMgIceSB2gW6lXOpuqs xkf5pakjwcJtgjw4xceg6 5tM63Y76pXRcw ZHRoPSIzMCUiIHZhbGlnb n8tjF9yJd2+PNSgfBP3xI G9sC5uJDHiAfE9EGwzQ58 9InRvcCIvPjxj u5zge6cnsAr8GvE9EEZoc lXiqBrtUSO9o1WnPm98I3 9sIHdpZHRoPSIyMCUiIHZ xbBgxuy1nbJ8r Ii8+NMYzeHL5yEM5nF7pS nYkMiC1WPngP390QqVdrJ KsOzniD44kA0DatQE+PHR wQhr1MKPmnAut KC5maOSgBFgmSt7xMGX8P bBnBsLvGFnxZ7HlTIOtzs svrujwzQL3MMPeJZIqaD4 0Ts5ucRrmLMSt nYXYmQ0muwekd2jpulefE uLbAYFsLSb8GTy4RGPleR zrVrYaRPJ9ClZ5GKE5fEX mqG9mqMzxwehr iF8eX5IuRQYdzwrdNq13v B0nCxRmShG7OLqoKkm+U0 WSAXSKNkpnLGWRC1ceLFm JKT74U4ArMue4 ZQWrkGeiMS0vlWTeOIipG v8seWvdpBghFI0tRFVwhk bhSGIbzU3oSHGerEPtoMm hDD9vCONyuqhu n206KlNpTIF3XPVhhIKsY 5UvsI8pBpFzMOQvIRSjU1 HyaQYeONztE537LLpvPkI 6JQTsqmQzH9Xd COXbiKtmNaF1n8K3Lp9yH b0jXR6lKVQ9RJ50AC06iG Lra8X2eHQ5W9ZrDGZsybv fuizlyCS9DSWo MLVgxF61kSIyQCinLo1vw 3L7p986UDElDTDibZ93Bw 8ssZnkTQWhgRCFoJ2qipn nh2lneovzYoYf TNMvLNl4ZLd7IHSepQlpD lAtIXC3CqH8RRI4dNEhsE 7ygRwkjsflgG9tCod+NTk jOKWnxsZ2L0Qz Cob5LFVvuBrmJR3eoZLjW IbcWe4jvEfsfNyrGM7sSD FsegtuPCNijY0vFIByxKM wrIhiYM3gPYLo ctbir479EbZuJQC0NZImu XIjB2QjrY8zStKqFPViRV EqE5JobCKhKYfwP183TAk yZlN7JRPdfcWh I0BpNNXyoMwfLeI4u3O6U i7FKQlYIG60KW65tLMij1 L7eDS1H9SwOCVhaunniow zfPT5WFMsDPTw vN75gYCsQFjuZa7or1N0o 159ZLGgZCMasS51Qh3cbD oeBYYcdHPZnK8gcqpsi6r vcjogIzAwMDAw QNy5IGf4TDIchPkhXqQuU OJ1RyH8GVP8uGYweU9zuW utbrhnwJ5rMsh+S9Q2Z2V kPjwvdHI+PC90 HNGtJT43bIDijKItr3hxz Py1VnWuVKExFPC2wPqwLT hak0CtANHmJ19pvFLrc7L 6IGNvbGxhcHNl ClDpmJL6wT7lZTscdihxv 6uespuhQjhrw7icls23hC 86F22oTEwdJHIzDUZhNAZ bPQHplBqmyy6p sY2fQz9+PGBytRC5rXH2p K9mHiKnVaW1NLymS897Pj KupXToUbsjp9vyk9kkuJt 9IjIwJSIgdmFs vWguJOU8u0OdNe63L37hO HdpZHRoPSIyMCUiIHZhbG uhgf2hhI5hLo5+VR6jl6b vsi77xN23eTF+ KATsICD6oZeqLIwbCJQuk I2tOWhyRoE5FSOkXnYjyG 65vJSkKDgyOs1yiEzlfPz uKW0nXAYgisyb f766YmTbl1qoZINnpCIuC MgzYQN9U39hq0O9WPJnSL BvUND7pMA7kU9xkLgbykw gbGVmdDsgdmVy gRkrKRbmQBlkC600YCIeo EjhSgRxgLLvQ9rqtvJUYS 1lOjwvdGQ+LIXcQBF2nQt oBLheZSBbtD6u WNTaK6t7NzSeRcV8EZrrZ 1VgayR4MTOewYTtBMBuvP BSvW9ueeepm9dcevcmOgT eNWNkBUv3JNq5 LQEomBbaPmVbFCA2EcO1I QV7xQNgrO8srPrnwysqwL 9wOyc+RklOOjwvdGQ+PHR cFAF0hDndIQcb OQOosD1yDRQlE7c9YfLzG pS9GNykW1MzmrI6EYGrhQ HeOJPdvNRNzW4tgwfpx5x vcjogIzAwMDAw YYw3POj4ZGBpjQdgAlPzN TH4VeX9TVG2iQRquB3ueS kvtbcluN9mZqm+TVJOOjw vdGQ+PHRkIHN0 hEaqGIpwQTLipK7kTKKrL 3c0QyEkVtM8JPhmV8Wbyj S3NBTjyCGqYQCojWSHjA6 hkwwok0hvrnho IfJfNBMlTPw4GAv5WKMgx RxcDzZtUZV2YkU6XEU0aU XlrJ8hcVkkexdqbY7sUiy +SRT6IGL6KI18 KT44O4LrIaqjfMGbiPZ+P HRhYmxlIHdpZHRoPScxMD IgAyExcSbyAQ9nYk9uNWF yLWNvbGxhcHNl OiB (more content not included)... [facility] Wound Care Noteon 06-04-2024 Wound Care Note [id number]#1. 00OTGTIFF [facility] Coding Summaryon 05-22-2024 Coding Summary HTMLBase 64 QazphqmnHBv3pKh+PGhlY WQ+NP0FJBXlI36chYEseK 0nH7TIHNxJChsxDJIIFDf FFhRzypZcEG3xhDKvAWDx IC8+ML8kXANlNfjcxKTcb 1H7hIE0J95rra9aTGpuiA I3RPOuLoAdqsvnl9wvuVx 6IDcuNmluOyBt OIGhfK26ITW0aE37Bt59n SQnjBNlz4xolZj1GvAnZE LhKBE5mGwsZDccd2CqVGN fA82xtELwc9G2 YZEuuOgpsCEeZwIxnIR4u Q6sDNrokdfzg2cknrgmQx m7na38uNJya3U3qBI6J5J oyrX9UUDucEXs CayjkNPAhZ5hhxgfl9una yffEgIwSOXfVCh8IIj5KH WadGbeXvDcUF70ETF1XWQ rguWaH5UvNOMf yKqlPcM8t3A2Dc8DR5RUX bcfR5WHZYSMRCpunBT+PC 62rs08N3TmPmkeWou9WYP wVUI1fFP0kE8k ULMeTKlty6I9aYR3D7Ubh nLmhq7ty3qoTVLbUQcwZ4 1viPWoc4Y5TZFxpRQ1TUK nzFnlWsAygH70 Oyc+WXYstNuzk7CeXptlz 6pbg6oojLu2RuksEBFpqu IndZpzDHG8e2LjZm7eIPP qaYM7cCM5rC3i VwAsHyC4WCthA903JfOkl QVaAzdiD07hU5IexBK+PH AsKxk7PIWhpIdoPJ7eU7J hZGRpbmctbGVm mTepZO1qYRVjoecbWNDpi Y0zLTPsO4x1YwZePyH2EP uvK2DrIJNtfzwvOj02sX8 kQlPkTfP3MOnk T2WbytK9MDHksBVqSWvtY DS4W68mm5Q8WQUsLVZpKL P1kAI8oU9kcEqqhjiniIX mdDsgdmVydGlj CWhaDXduO623WCBcgCerV kNvZGluZyBEYXRlOiAgMD kvMDMvMjAyNDwvdGQ+PHR gEYH4jLwrNHTt oFUcQZxzUc1yoVxrvIhdJ N4jLXLnsxvgQSWxmU4uIL MtbAYvzKqkIY0wRYDztob kb267AeDfYZX0 GCLniQDtW9FkhV3dOlEqD CQaBAIwZ7SkzGWzLLwcK6 43MEbvPdY4DNZhufCaJ7R sLWFsaWduOiB0 y0C8Fd4Vx2RnhglbL6Cbh ZSbIzXyRpsrTEs2V0LmBj wvdHI+UE63RRTmTA77NCi 2BOL7bDpqYLiz CDHhZ1RwpT7cUxZwMWQrI GRkOyc+PHRhYmxlIHdpZH RoPScxMDAlJyBzdHlsZT0 oFu1hDFUwDXEz iXodzQVdAkGoa8ocFSXdN CjeXG9prAhvY4WmkYL8LC Caw8q0Tv11H60xS0EaaWN +EBYrtVQ7zDT1 qH1qPhUaVlA5NVarC228Y iIboXIuZacmt8bxv4oilJ t8IgJ1FQJtfjAixXnjLKW 2v9VhNh73Q34p IHdpZHRoPSIxNSUiIHZhb Mkdem9nmR1nSk3+PGNvbC C6bIZ4tP8bWoBkPqJ0OEh oF502WnQlkXIv Qtwyo2ejr9bltJp6PkZjX ZIfzuGrnHbkFJZ3k0RkQz 53M2AqgUala5XpHcq6uh5 6nMYml2Z2nOJ9 N7JxXIRlrbkcyTQacMmxF G2eAZMlsqihBBJcpR4yOI RlC0u3IrVqChE5XBayN5H gjyQ0MRFndYPi QPPnxGIKuV7vzkqrr4wuh fugEqElGBZtBZh7ONt0GO AbfZcxZcGeQUQ9EsO0PJF 0oHRgnY1yeKhr aorudI1xHpq+ZJC9uVBvf KKNFE3lFrowgOK+PHRkIH A7uTmdCJbfHCArbN8rOZT sH6z4UjQyIwL0 GYotB8PivxC1SVLzhLGyJ PYzoTOQoO2dvgcrf8yhqv jwLaGnDYDnSQf1PSl7VMG saWduOiBsZWZ0 JqO0JOI7jDSfgC4cxPprd rtznK8wCmw+QmlydGggRG D9ZJo0J4GhMqn0WMQroQi kVM0pxGSsNRay Wg4cpSriqKelAH4hYZCpr mqhw194GxGje3nnPHNtaA YxJYfmRIC7N99el3D3LTF nCUYnODH4mEF7 aL8qcGudhbdbnRUcuUnzs vSsmDooCThiZSdzK993WN MsaBubJrYwRRa7U0KxUuk 6ZRWpxGxsTO6m kNLzPLaiQn9omCwepMmmR U7dJLQkohrog915WhElu9 ddMDIvnOZcDCipLXI0B46 la2H8XGBzZZHo GCR1wOK5nV1edBkafzcgj GVmdDsgdmVydGljYWwtYW maU213GASjbIhgEaDgeKe 4A4KbVvj0PDRo rWgeHR9cnXJzJJvgOy3rg KuipKkwGE0vEKWzbkkox6 97MfNra7lnCLOsjPBjVBf fRAL7X37jj1F8 TYHyFOPcIGF0mSK4dN6ae GlnbjogbGVmdDsgdmVydG rqMQrwQFzrO837YJVxmBu nPlBhdGllbnQg OLimPDb1L9TrWfkviEI+P O86QXMxDB04bLKowDPpo0 dazPl2ZiGqBGJyORL2nVc vTSmgc5BvAXSn Z61odGJpu0T0EBXlxHirq OPkJjRriYJ6xG8bNGhuxw iae0zkgdieNqfeo5nria6 5dL74D28xTRtx ZHRoPSIzMCUiIHZhbGlnb j3wvZ5iLr2+ZZQemUD2fB M2iW6lAVKtFyF5JWpzO56 9InRvcCIvPjxj f1qgu8igiUq9UmZ9SLTtv uIwnJcbBEN4w7HdTp99X2 9sIHdpZHRoPSIyMCUiIHZ yqGmybi9ciN6k Ii8+XIRjdYS7wPX9iN3jM aKiUvI8XRthP458PySxtK RlEckgE99mB8DidGV+PHR lOed7FOSsjIbf WW1wtYKdRKsaId8kOBT0X cJhOoOgRThlO4CjGWKawo rcwznuyCC7VXTiEOVjvL0 8Hy9lmEggJJTy iKVQjD8cmvhhs0rhalloW wMhNAUfFIc5GAt6QGEbiS rgLmQwBXY0XxL4TFU7nQT siR2voMkwsdru xU4bF4IsUPSrfaiaMn65c Y2aMfAhCdJ7CEioCao+U0 YXNBEVPzbzGPIFE0uiLSp IFP18E7DeLhq7 WSMweKtcHU5rpRLtVLobE n9zgKwnsXmhQI2bSHKilz enOQTsqA9cTDRwaYRnyDj kGU9iZQYmtcfm g077CpPqNEM3BEYukOXlY 1KyrW2oCeEbXKDwDAJxG3 TvnMVoVHkiQ392BSlgHyP 8JPEzedDtE9Nt YJErlBabJsF3w3E9Bc4nF s2gXD5nPPQ1BJ18AV71gJ Rtx1S1hHG8M7YfXWTzwvy atndyxPP6AVKy ELBblF58cOQqMLylTl1ii 0Z5y101LLRlSRHfwN61Ov 8btSebFGPtgMBKfC7cytw rl0eyvklfFsYv QQPoZUh2RLq6MATsfDfdW uWtXXV1FyF1DMO9xWHouH 2hlRlwrrwocG8lPgl+NTk lBLNuopE7L8St Gyw2HXIsmReiFD5piMIjN TizQs6vuSlqqBfwAG1bUP XobwlkJBJfjQ1dQUOexVR toWejUN3iCXId xilux415NoVsMJU4CEXtk EJkK9QwgX1vXlJdCJZaFN FlQ6OldJKoIYueJ285YUa zGsZ6HDTgsmKb C2XvJQFvaJdtTzJ2k5O3J f2KACbBRI62VS76aDKoj2 S4rPU7J9PuKXTyovvfunq iiUQ3VUOnNZXc uL06hWMgTWxoCa2fp0W8f 627LPNeLAZbpW91Br6gyU lxDQOxuUOHwO8jbxiso6w vcjogIzAwMDAw VNn7BHp9NCToaWdpFmKkJ SZ4RdN0ZTZ1cVCdqM0eqY dnafeweF7uXbp+Z1Q8X4P kPjwvdHI+PC90 MFFpZK39fXVwlRZoj6mdk Dn8QfLyVAVqVAK6hEwmYY lyg4NoWAFuS11lgNNei1Z 6IGNvbGxhcHNl JaWacZZ3uJ6cHMgvprvty 8bgetkjEvjzb3bcqj01bH 16T39oSXbfYEJhOJTkWVV mNLPglVtcaq4r iB9zKy2+APMdvEG5cTF9p C9hUbBbHqL6EAxoD189Hv RtcLHoQmrje4ptw4exnLd 9IjIwJSIgdmFs cFnqMQT2s2KaEu40U45nB HdpZHRoPSIyMCUiIHZhbG llrb4foH1fLm1+OF5gl6h qqa26hF83eLL+ VNCkNCR0cVcaVPgrLZHhh O2uDKlxSdX7GPMmClYdiY 27bYEnNZsuLy7pvTsdlLe pZK6rSCEnsevd m433MjJxm5xpUHMxbWPhF XseIXD0Y01eo1E2CCEuES OyQKT7hAS0qS9qwSbxqzj gbGVmdDsgdmVy dXcbHNeeIQnfQ558XGRui AnxAbXdoPIxE9ujahJCEM 1lOjwvdGQ+ZTPqZES1oJh sQLdcKPMafR2e UHZwU1f0LvXlSaF4BWetP 1OhmuH5UDWcrJGaURPmcG CFeP9yzqfkm8qhsgkcPvQ cCUVhQUl5IVv1 EIFhuHfbOyGiQMV5VdX4X PL6bCWltB3nrHlhqjksuS 9wOyc+RklOOjwvdGQ+PHR aWKG8eAzpRTnh QIIajA2kYUXmN4b1WiQvR xX9EJfcU1GnvfX9SCGbfD SnYNKdsUHWtU4qquzer9h vcjogIzAwMDAw CWv6CCy7MDUmoYnrZdWtH SG1OcM8JRC9nEXwmG1kiS xtcmkzyX0iMmy+TVJOOjw vdGQ+PHRkIHN0 hIilHEqzOXLpdG8vAOLxY 7r0TtYqZaS1KLzcD4Diaa F0SLOedNGtDYQkrBGSwF4 vxastg5njlndj MjMgEHUhWSt1CHw4SHLku RnhZfEnZYE2BdL8PXJ8wI IalM5gxFlbekuqgC3qXwo +KRY4EMG5ZP20 XK76Z9LgCjajlNXpgXE+P HRhYmxlIHdpZHRoPScxMD CiDaHvoRtoBE2sKm9bFER yLWNvbGxhcHNl OiB (more content not included)... [facility] Wound Care Noteon 05-22-2024 Wound Care Note [id number]#1. 00OTGTIFF [facility] Coding Queryon 05-17-2024 Coding Query I just wanted to double check that your final diagnosis of diabetic coma is correct? Can you please review and revise however you deem appropriate? Thanks. [Electronically Signed on: 06/25/2024 11:34 EDT] Kimberly Jones MD [Verified on: 06/25/2024 11:34 EDT] Kimberly Jones MD [Transcribed on: 05/17/2024 11:25 EDT] [facility] .Auto Diff 1on 05-11-2024 Auto [place] % 8 % Normal 09-30 [facility] Comment on above: Performed By: #### 2 [id number], [id number], 0275032, 99201286, [id number], [id number] ####[facility] (DEFAULT)[address] [place] [address] 36951 Baso Abs# 0.1 x10 Normal 0.0-0.2 [facility] Comment on above: Performed By: #### 2 [id number], [id number], 5306842, 96304720, 4532789, [id number] ####[facility] (DEFAULT)[address] [place] [address] Basophils/100 WBC (Bld) 1.3 % Normal 0.2-2.0 [facility] Comment on above: Performed By: #### 2 [id number], 7302513, 6657354, 52809674, 4798387, [id number] ####[facility] (DEFAULT)[address] [place] [address] 56306 Eos Abs# 0.2 x10 Normal 0.0-0.4 [facility] Comment on above: Performed By: #### 2 [id number], 7387878, 2402254, 62210699, 2530728, [id number] ####[facility] (DEFAULT)[address] [place] [address] Eosinophils/100 WBC (Bld) 4.3 % High 0.9-4.0 [facility] Comment on above: Performed By: #### 2 [id number], 3707945, 4485958, 30772593, 2545242, [id number] ####[facility] (DEFAULT)[address] [place] [address] Lymph Abs# 1.3 x10 Normal 1.3-2.9 [facility] Comment on above: Performed By: #### 2 [id number], 6480371, 2295476, 60010825, 5500557, [id number] ####[facility] (DEFAULT)[address] [place] [address] Lymphocytes/100 WBC (Bld) 24 % Normal 14-48 [facility] Comment on above: Performed By: #### 2 [id number], 7790752, 9757029, 95060563, 8712798, [id number] ####[facility] (DEFAULT)[address] [place] [address] [place] Abs# 0.4 x10 Normal 0.0-0.8 [facility] Comment on above: Performed By: #### 2 [id number], 2621193, 4582854, 44932614, 8381898, [id number] ####[facility] (DEFAULT)[address] [place] [address] Neut Abs# 3.4 x10 Normal 1.5-9.2 [facility] Comment on above: Performed By: #### 2 [id number], 1521958, 6341845, 84103622, 8933008, [id number] ####[facility] (DEFAULT)[address] [place] [address] Neutrophils/100 WBC (Bld) 62 % Normal 44-88 [facility] Comment on above: Performed By: #### 2 [id number], 4449536, 8200440, 92222844, 7168257, [id number] ####[facility] (DEFAULT)[address] [place] [address] BMP Standardon 05-11-2024 Breakpoint Chem Normal [facility] Comment on above: Performed By: #### 2 [id number], 1573721, 8725370, 63314516, 7034850, [id number] ####[facility] (DEFAULT)[address] [place] [address] eGFR Non AA 36 mL/min/1.73m2 Invalid Interpretation Code [facility] Comment on above: Performed By: #### 2 [id number], 9302111, 6577458, 40446378, 2057144, [id number] ####[facility] (DEFAULT)[address] [place] [address] eGFR AA 43 mL/min/1.73m2 Invalid Interpretation Code [facility] Comment on above: Performed By: #### 2 [id number], 8899798, 4492137, 22796968, 8528575, [id number] ####[facility] (DEFAULT)[address] [place] [address] Anion gap [Moles/Vol] 11.4 mmol/L Normal 5.0-19.0 [facility] Comment on above: Performed By: #### 2 [id number], 8232344, 8943505, 16087520, 4370078, [id number] ####[facility] (DEFAULT)[address] [place] [address] Calcium [Mass/Vol] 8.4 mg/dL Low 8.9-10.3 [facility] Comment on above: Performed By: #### 2 [id number], 2266843, 9453357, 25276454, 1953026, [id number] ####[facility] (DEFAULT)[address] [place] [address] 19545 Chloride [Moles/Vol] 101 mmol/L Normal 101-111 [facility] Comment on above: Performed By: #### 2 [id number], 2445017, 8080542, 86849457, 7889237, [id number] ####[facility] (DEFAULT)[address] [place] [address] 43343 CO2 [Moles/Vol] 26 mmol/L Normal 21-32 [facility] Comment on above: Performed By: #### 2 [id number], 1801688, 4825833, 33775463, 1084105, [id number] ####[facility] (DEFAULT)[address] [place] [address] 60834 Creatinine [Mass/Vol] 1.93 mg/dL High 0.90-1.30 [facility] Comment on above: Performed By: #### 2 [id number], 3182687, 3859990, 97696040, 5183103, [id number] ####[facility] (DEFAULT)[address] [place] [address] 90996 Glucose [Mass/Vol] 337.0 mg/dL High 74.0-118.0 [facility] Comment on above: Performed By: #### 2 [id number], 3397543, 4722575, 08907949, 7490902, [id number] ####[facility] (DEFAULT)[address] [place] [address] 83804 Osmolality 291 mOsm/L Invalid Interpretation Code [facility] Comment on above: Performed By: #### 2 [id number], 4737171, 0402073, 58008378, 3511297, [id number] ####[facility] (DEFAULT)[address] [place] [address] 25305 Potassium [Moles/Vol] 4.4 mmol/L Normal 3.6-5.1 [facility] Comment on above: Performed By: #### 2 [id number], 6694541, 0680704, 77371834, 0253243, [id number] ####[facility] (DEFAULT)[address] [place] [address] 96405 Sodium [Moles/Vol] 134.0 mmol/L Low 136.0-144.0 [facility] Comment on above: Performed By: #### 2 [id number], 5096285, 6674723, 28670497, 8844217, [id number] ####[facility] (DEFAULT)[address] [place] [address] Urea nitrogen [Mass/Vol] 40 mg/dL High 8- [facility] Comment on above: Performed By: #### 2 [id number], 0047758, 6579209, 52937795, 9055032, [id number] ####[facility] (DEFAULT)[address] [place] [address] Urea nitrogen/Creatinine [Mass ratio] 20.7 mg/mg High 4.6-16.2 [facility] Comment on above: Performed By: #### 2 [id number], 2673049, 1329525, 80872256, 5249305, [id number] ####[facility] (DEFAULT)[address] [place] [address] 75534 CBC w/ Auto Diffon Erythrocyte distribution width (RBC) [Ratio] 14.0 % Normal 11.5-15.0 [facility] Comment on above: Performed By: #### 2 [id number], 4748513, 7530563, 67829318, 6663600, [id number] ####[facility] (DEFAULT)[address] [place] [address] Hematocrit (Bld) [Volume fraction] 43.5 % Normal 34.8-51.9 [facility] Comment on above: Performed By: #### 2 [id number], 8352239, 7348400, 01796352, 7159650, [id number] ####[facility] (DEFAULT)[address] [place] [address] Hemoglobin (Bld) [Mass/Vol] 14.3 g/dL Normal 11.8-17.7 [facility] Comment on above: Performed By: #### 2 [id number], 7992814, 1761416, 15311781, 9315245, [id number] ####[facility] (DEFAULT)[address] [place] [address] MCH (RBC) [Entitic mass] 30 pg Normal 24-34 [facility] Comment on above: Performed By: #### 2 [id number], 1367115, 8446725, 13126541, 6353286, [id number] ####[facility] (DEFAULT)[address] [place] [address] MCHC (RBC) [Mass/Vol] 33 g/dL Normal 26-37 [facility] Comment on above: Performed By: #### 2 [id number], 8413507, 5493905, 98786410, 9199795, [id number] ####[facility] (DEFAULT)[address] [place] [address] MCV (RBC) [Entitic vol] 93 fL Normal 81-100 [facility] Comment on above: Performed By: #### 2 [id number], 4629819, 0283577, 72077216, 2458928, [id number] ####[facility] (DEFAULT)[address] [place] [address] Platelet 185 x10 Normal 138-427 [facility] Comment on above: Performed By: #### 2 [id number], 0811366, 6528650, 58865444, 7919039, [id number] ####[facility] (DEFAULT)[address] [place] [address] Platelet mean volume (Bld) [Entitic vol] 7.9 fL Normal 6.3-10.2 [facility] Comment on above: Performed By: #### 2 [id number], 3335446, 5356864, 33209522, 8874268, [id number] ####[facility] (DEFAULT)[address] [place] [address] RBC 4.70 x10 Normal 3.70-5.30 [facility] Comment on above: Performed By: #### 2 [id number], 3928065, 8992989, 14315658, 0096307, [id number] ####[facility] (DEFAULT)[address] [place] [address] WBC 5.4 x10 Normal 3.5-10.5 [facility] Comment on above: Performed By: #### 2 [id number], 9878118, 3570093, 05092297, 5647885, [id number] ####[facility] (DEFAULT)[address] [place] [address] Man Diff? Auto Invalid Interpretation Code [facility] Comment on above: Performed By: #### 2 [id number], 0230981, 4947949, 57310828, 0450662, [id number] ####[facility] (DEFAULT)[address] [place] [address] CRPon 05-11-2024 CRP 1.6 mg/dL High <=0.5 [facility] Comment on above: Performed By: #### 2 [id number], 5402442, 2266460, 76151239, 6829360, [id number] ####[facility] (DEFAULT)[address] [place] [address] ED Clinical Summaryon 2023 ED Clinical Summary [facility] - Emergency Department [address] [place] [address] ED Clinical Summary PERSON INFORMATION Name: SILVIO CROWELL Age: 58 Years Sex: MALE : 1965 MRN: Acct#: Visit Reason: Wound infection; WOUND CARE Arrival: 05/11/2024 14:45:07 Discharge: 05/11/2024 18:02:00 LOS: 000 03:17 Check In: 05/11/2024 14:45:07 Checkout:05/11/2024 18:02:00 Address: [address] [place] [address] PCP: Balwinder Miller MD PROVIDER INFORMATION Provider Role Assigned Unassigned Kimberly Jones MD ED Provider 05/11/2024 14:47:09 Pratibha Mejia [employer] Nurse 05/11/2024 15:07:27 VITALS INFORMATION Vital Sign [...] Follow-Up: With: Address: When: Balwinder Miller MD [address] [place] [address] Within 3 to 5 days DIAGNOSIS: 1:Chronic venous stasis; 2:Diabetic coma Patient Understands: Yes - Patient/family/caregi shalini verbalizes understanding of instructions given Comment: [facility] ED Clinical Summary [facility] ? Urgent Care [address] [place] [address] Clinical Summary PERSON INFORMATION Name: SILVIO CROWELL Age: 58 Years Sex: MALE : 1965 MRN: Acct#: Visit Reason: Skin problem; WOUND EVAL Arrival: 05/11/2024 14:13:36 Discharge: 05/11/2024 14:40:00 LOS: 000 00:27 Check In: 05/11/2024 14:13:36 Checkout: 05/11/2024 14:40:00 Address: [address] [place] [address] PCP: Balwinder Miller MD PROVIDER INFORMATION Provider Role Assigned Unassigned Ian Lynn ED PA 05/11/2024 14:18:35 Audelia Pool [employer] Nurse 05/11/2024 14:30:10 VITALS INFORMATION Vital Sign [...] right lower extremity Patient Understands: Comment: Normal [facility] ED Patient Summaryon 024 ED Patient Summary [facility] - Emergency Department [address] [place], [place] [id number] PATIENT DISCHARGE INSTRUCTIONS Patient Information Name: SILVIO CROWELL Age: 58 Years Date of : 1965 Reason For Visit: Wound infection; WOUND CARE Arrival Time: 05/11/2024 14:45:07 Primary Care Physician: Balwinder Miller MD Attending Physician: Kimberly Jones MD Comment: Visit Diagnosis: Diagnoses This Visit Chronic venous stasis (I87.8) Diabetic coma (E11.69) Wound infection (091040448) The Pharmacy at [facility] is open Tuesday through Tuesday from [...] alcohol and/or drug addiction problems; contact the [facility] 11/04 Crisis Hotline -Text [id number] gc [id number]. If you received any narcotics, sedation, or [...] documents With: Address: When: Balwinder Miller MD [address] [place] [address] Within 3 to 5 days Medication Information: The exam and treatment you received today in the [facility] Emergency Department were for an urgent problem and are not intended as complete care. It is important for you to follow up with a doctor, nurse practitioner, or physician?s embroidery assistant for ongoing care. If your symptoms [...] so we can reach you if necessary. [facility] Emergency Department has provided you with a complete list of medications post discharge. Please inform your leak hunter/provider of your visit and for further instruction on these medications. Any specific questions regarding your chronic medications and dosages should be discussed with your primary care physician(s) and/or pharmacist. New Medications [facility] [id number], [address], [place] [id number], [phone] cephalexin (cephalexin 500 mg oral capsule) 1 [...] air Measu (more content not included)... Normal [facility] ED Patient Summary [facility] ? Urgent Care [address] [place] [id number] PATIENT DISCHARGE INSTRUCTIONS Patient Information Name: SILVIO CROWELL Age: 58 Years Date of : 1965 Reason For Visit: Skin problem; WOUND EVAL Arrival Time: 05/11/2024 14:13:36 Primary Care Physician: Balwinder Miller MD Attending Physician: Ian Lynn Comment: Patient Education Medication Information: The exam and treatment you received today in the [facility] Emergency Department were for an urgent problem and are not intended as complete care. It is important for you to follow up with a doctor, nurse practitioner, or physician?s embroidery assistant for ongoing care. If your symptoms [...] so we can reach you if necessary. [facility] Emergency Department has provided you with a complete list of medications post discharge. Please inform your leak hunter/provider of your visit and for further instruction [...] with fat layer exposed. (T14.8XXA) Skin problem ([id number]) If you received any narcotics, sedation, or [...] during y (more content not included)... Normal [facility] Extra Greyon 05-11-2024 Tube Collected Yes Invalid Interpretation Code [facility] Comment on above: Performed By: #### 2 [id number], [id number], 6232176, 59084386, 1349346, [id number] ####[facility] (DEFAULT)[address] [place] [address] Sed Rateon 05-11-2024 Sed Rate 33 mm/hr High 0-15 [facility] Comment on above: Performed By: #### 2 [id number], [id number], 4025665, 31721370, 8398401, [id number] ####[facility] (DEFAULT)[address] [place] [address] Urgent Care Rec[facility] 024 Urgent Care Record [facility] ? Urgent Care [address] [place] [address] PATIENT DISCHARGE INSTRUCTIONS Patient Information Name: SILVIO CROWELL Age: 58 Years Date of : 1965 [facility]: [id number] Reason For Visit: WOUND EVAL Arrival Time: [...] and treatment you received today in the [facility] Urgent Care were for an urgent problem and are not intended as complete care. It is important for you to follow up with a doctor, nurse practitioner, or physician?s embroidery assistant for ongoing care. If your symptoms [...] so we can reach you if necessary. [facility] has provided you with a complete list of medications post discharge. Please inform your leak hunter/provider of your visit and for further instruction [...] strep) NO Flui (more content not included)... [facility] XR Tibia/Fibula 2 Views Rig ton 05-11-2024 [...] MD 05/11/24 5:00 pm Technologist: Edith MEYER [facility] Outside Recordson 04-13-2024 Outside Records [id number] .[id number] [facility] Coding Summaryon 03-09-2024 Coding Summary HTMLBase 64 VeagywlfBPe4xAp+PGhlY WQ+GY4IQRKiQ61ejXSgcI 9cC6ZIJSlDBlgzYJPPRQh XIiOlduHfZY2jzIGwSHJw IC8+AB2aUCJqSvslmFVbt 8O9iIR0P02wfw1zCVnvtW K6OQDeZyHqymgyq7mfsRm 6IDcuNmluOyBt AAEsrD62IOP3zC48Bv99u GLbgFHia7ffeQn4OjEcTW VlSHL1kVnkBWbzv7UwCOK bP71ooDLps2G0 PKWwnAxdtZIhBeNacPP3j M8oEYgnmufdt4jdzcxzQc d7bt33lLBod8N6qLK3G9O qpyG6YMIvlWHp KonzcVXTxW4odlboc7gpm ljuAzYbIOXsLPn9RDg6TB MdjKewGnSpKW36VDY4YGB aksHiK3LgJVPy zJguJzL5d8V5Cy4LY0MQS qnyE8AEEZPFHWidjPZ+PC 77ta50W0AyMqqeJvo6LMZ sVCH3lAT8eI2i BITmVJtkh0J8rIP5L0Znu lKbzk2ul7mhIQGnLKlkV7 8vqHAde2S5NXBauOH0WAY tbYddMiBqfF01 Oyc+CRZjlYovq6FqIyubk 7cir3bdqAv8BpkkTPNrhn YklDzfIZM5j2TlGc8gSDW erXL5wOB1zM7n HqYgHiR3AQvkE664TyAmc QItEtnlW19hM3WdqAH+PH ZpPkb0TTNxoFbjWG2lZ0V hZGRpbmctbGVm lAezEB3fBKDqlcmhSVDvg Q7wCEGkJ3v0OaOpVkF4YY bvX0RiLLMlqszzEi97kS9 vYoIxOvZ6KEqz L0AnouV4QOLpdPRbXUjjF BE8P91je5G5VGCeSYTbLS W6nEL9iO8zeTrlrotltAK mdDsgdmVydGlj YSzeDQmoK437YMPhrAgaZ kNvZGluZyBEYXRlOiAgMD YvMjEvMjAyNDwvdGQ+PHR tJWD7sZhvXYKt jJFaVKamYo4jtWquqNaaO R9vLAJfmxjpKPHyhA4uPO YkbUErfYazLO4lLLIjtyn hq462ZoDkIXH3 SXOlyOYcE7SlcR9oZcHvE HJqUPZiO1ZvjLTtGYfeC1 58SFnePcG6ULQymuTeI6M sLWFsaWduOiB0 x6K8Ls3Hm8PksksaJ0Lep MFyXlPcWvgnJIq0B8NgGp wvdHI+XI76BBHpEQ44QIq 2UQN3nQyiZXcj QGYnC3NbwJ5sQjWbTYNlT GRkOyc+PHRhYmxlIHdpZH RoPScxMDAlJyBzdHlsZT0 zWm9bOHPvUCRb dKzunUJeDyWyx2cmQELrA LjmDR6piWevZ9NqqBJ1DX Jsc1b3Vb49B57oV5GioBQ +IIJaqDY1vZA8 mI2xXoKkRrJ7FNzqH554T uRtrPCfXgfjv7onb5pqhQ t7VkC7WCEsraTpqWabIRM 2z7EpDw00F01e IHdpZHRoPSIxNSUiIHZhb Doiiq0kzJ7vEq2+PGNvbC P9rSQ0pD5iFpBxCgW0YNd mU515BlJjrSJq Nnjxa0emd9eqaPq5OpVsW GZwpmLkuVykPMC0d8YiGm 81I1QztSieq8JoCoa7na7 1oOHfk8V2eCU9 W0AfVUEdqrtxlDLdjOdqW I7mQSNhbyhyAKSldW5pZS LyZ7j3PkXcSeI9UEzzF2B mxtH7KYWswJWa EISxdZCWkF3jeiynj7wth zsrTjNjRXNvPKe8ODi2RM XcpNpqOiPuXET2SsX6ILQ 5wJWswS9keAsn qqcpwM9sRat+JDE4gMQak OBPBX4oYbybkWH+PHRkIH A2wSgiAJemVQFvqD6dXLM xZ1u4GtKsSdO4 ODdeS0TkzkP9NJUqlTDaU FSrqUNZjZ1anrclh3nici qfBgTvLYCbIKs3TPa6SYD saWduOiBsZWZ0 PbC1KQG2dTVkeG4puOwvy gutlG8uVti+QmlydGggRG Y7XOi5W5VpSbt0GXTqtTq mOM4hbKLbXHaj De4arTrwcFugYQ8dUPQbm wwcz656BoNcr7poQEAbvQ JrULqnRKD4Z57ec2S0MTB xQXMnWAY8nAT7 tL7pfTdonenknUSzyAbyr vZosCdvCMimEQmuL354ZK EdaXnoLrUdDWk9Z2RlCgh 7NUWisCgvLF7i rWSvTMjzZg4vdLjbrTxtE J7mUBQphmfxu482RnQva5 vtDEAxcWSmSDgjLRE1N15 sg7N3BZKnGHFn OYG0mFD7vK6kaXrtpmxls GVmdDsgdmVydGljYWwtYW ghU069PSNjeTusMhRwfFy 0G0JeJdq5OEHe gItsVW1fiLVdAQwhJu1yt WwahWliHK4zMFWpajqaf9 76TtYqy2zxBGLuoDTpLWl hKAL1M71kl6Q4 LYTpNZYaFMZ1dRB4tO2wh GlnbjogbGVmdDsgdmVydG gnDKsdMNipH934BPKazDq nPlBhdGllbnQg NTtyJMg8X6IgIquodDX+P H48NPWtAY90uVFfaQFzc5 xqsNs0WpAkDEMnCLM1xVj jXOcud6LsDRDp W23kePUpw8B9TRLmhYuhp ULyPpLcdLA8wN2aWCovri bjv0ocddyuLrpyz7ejag6 3hB01F66nKZlq ZHRoPSIzMCUiIHZhbGlnb i0ltT9dGo2+SROtkNQ0mN Z6wL3gVFImMgJ0RSwxX92 9InRvcCIvPjxj h7qlt1pxpSr9YsR3UBYne pYtsVriGWU9a5QxVb75N2 9sIHdpZHRoPSIyMCUiIHZ orVqsql8bxV5y Ii8+IHFqeQJ8lGQ7fZ2vX lZbMfU2GNjpE058KzTciJ DwMvipK12dX6ArmRI+PHR gRll0WOQwkSrx HA9xzLPsFHcaRx8jRSS4U eTtGnMpUCpzR7FrNLDmyy wlaatjsAB3XTEvZIClpH0 8Ek2oiCreMBMk cZCBiM8aggcmy2lbcwoxB vGcTJXkSQw2GEb8UEXooM stEaIjVPZ9PfT5NCH0qQY wvT5lnEigvbcs oA9aD9StTRBauxjnBs62h X6wHnQhIkG5DFpgLld+U0 PRIGEZHqdxNXHKB1jySQm XTV38F5XeSvv6 HEAlxCgcCM3itEDgEEqzC e9erYbvbIidHS7hVCFlxq goHHUttM4tRODrdLLjiQu sRI1qLFGhlugq j661YoXhLSY4HLLqvTUdN 6UveS7xPvMyEQPpSTLeY3 DjlKLxISzlC740WVwnNzO 3LIHoqzXtP5Ow NNNtuXxgWgZ0w3N9Im0sR p0hCK3dAVD9IC25NB58fD Lqk4V6zIV9Y0UvKIMcvej fjirnbVG2QRHx PMUzxP56jNYgMSpbWz6fo 5G3p855MGDzDAAsuI13Ev 4shNuvXNArtPTJhR0ppwz xr1cxipxkZtKh XIOqCRh8XCh1RYHdgBvyI nRjAZA0NwD5JCF5dKCbpC 4wgJynnrmxgT9oXep+NTk xZBTjlgT5K8Hg Rqg2WMMxyLrrBF0ekGNmA GpoQo7lbOvcjHgvER5rLR FcbmyyYOMvgY3vAWUtwLQ zwPzyWG5nYVGq qcqly580OsHkPLH2GUUkv OBrB8AnuS6fQeDeRBHpQQ WuC7XxkYTkLAbwF523DDo iGwY4PQOalpSw H6QmXVJlqUerZcR9g2E5G i3QSVnNXK30LJ92hMCtz3 X1dCJ6K7RiQUBvfnynviw apFS4RZOvPQBv lL68oGFcVBpsAv2gi5W1d 203QLQiKIHxeQ39Ht0snE diFPVenWVQoQ1vfguho0u vcjogIzAwMDAw KHo7FXt6SAPamHngXiXbV IF8JkN0WJN9gYMjcI6brJ mhopykeQ3aSra+O5K4K4Q kPjwvdHI+PC90 GOKwCZ90zDVznXIoy4hla Wi3AoWnLGLhGDR9mUotNW gwu2PfHIFhG76ctDJdh8H 6IGNvbGxhcHNl KgAllWD2eG6rDJovmponi 5abaocaOsots7umze55eT 66P61xHMiyCAEqDQXuKZN lMQWjcSsmpv0b aG5rFl5+UDJnvSF8xQF2p A9oVoNmKbW8XFwyJ985Ui YunGCpDolap8wac0cydRn 9IjIwJSIgdmFs gPrkBVG4z1VnDe61B44xD HdpZHRoPSIyMCUiIHZhbG icuo7xkK9dIb5+ZR0mj3b syv31aL66oBR+ OAAkEQT1aDanHVrpNDUfd B5eHFayWmO3HWNzIbSraU 18jKVfRQfoGn2qhPxgwJy bMX9oBQBkdpkq d971UzSiz9fgDPTryBNdR VboLFD2O87jp5I1FHQbGZ JrVGX5hLM7uU5gbTsufao gbGVmdDsgdmVy uHvkAVuiTJwjM248LXUhs NiiNiWppFNaQ8jbwgLMAI 1lOjwvdGQ+TYFhJPG5wIz dFSgzGWUaiP2d ARLjI7w4QgQyLxK6DPceR 3LbhhE9OWOntRPhYPTasR YIyX0vqzunf1qccfszXtO bBXGxEGa1WDb1 GZHldZncWePxXBM4MzP1V NU7vKBknB9ijVdunzxhgF 9wOyc+RklOOjwvdGQ+PHR aDJI1wMomMCes HJRlyZ8qMHYjL8f8XvAhD lF1CCxfP0LhnxE0DBYcbQ CwTIQrmZOOtW6jbcmxz4g vcjogIzAwMDAw IQz8ZJd0RPUltEnwAhJnM HC1LpR3JVB0gLRecE0vuL nmihcvmQ1hZwz+TVJOOjw vdGQ+PHRkIHN0 cQfkIGczEEUfvR6hGBPyF 2h9IwLnLeG3KIosK8Wvbq G0BTFurGHgJWBcaTQIdW4 myekpa9dhewjl VeLeYXYiDWq5NRx9ZYKzs BgxSqCmEUE7TwW6BMK9eU QqlQ2wgSmtqfpeiO6qRzm +CQZ1LTM2RQ06 SP69Z9TzFokpdBQkfJZ+P HRhYmxlIHdpZHRoPScxMD WtRpVslOnePH7eZo3kSIZ yLWNvbGxhcHNl Oi[employer] (more content not included)... [facility] Office/Clinic Noteon 024 Office/Clinic Note Patient: SILVIO [...] 135.620 kg Body Mass Index 39.63 kg/m2 [place] Body Weight Calculated 79.52 kg BSA Measured [...] open area.. Impression and Plan Diagnosis Diabetes (LUK04-FP E11.9). Plan: Will resend his Farxiga and glimepiride to the pharmacy to get him back on medication. Will have follow-up in 3 months we will recheck his A1c at that time. Also discussed with him ab (more content not included)... Normal [facility] Office/Clinic Noteon 024 Office/Clinic Note Patient: [...] 135.440 kg Body Mass Index 39.57 kg/m2 [place] Body Weight Calculated 79.52 kg BSA Measured 2.64 m2 General: Alert and oriented, No acute distress. Respiratory: Lungs are clear to auscultation, Respirations are non-labored, Breath sounds are equal. Cardiovascular: Normal rate, Regular rhythm, No murmur, +2 edema of the legs bilaterally. Positive bullae on the right anterior martinez.. Impression and Plan Diagnosis Diabetes (VDN80-VK E11.9). Plan: Will increase his Ozempic to 0.5 mg weekly. New prescription sent.. Orders Orders Evaluation and Management: 29040 Office visit - established pt, Level 3 (Order): 10/03/2023 13:43 EST, Qty: 1, Diabetes - Pedal edema. Diagnosis Pedal edema (DEU54-QW R60.0). Course: Discussed with patient the importance of taking his medication daily. It would help preventing the edema and therefore the blisters in his legs. Also wear compression stockings would be beneficial.. [Electronically Signed on: 10/03/2023 14:20 EST] Balwinder Miller MD [Verified on: 10/03/2023 14:20 EST] Balwinder Miller MD A [facility] Outside Recordson 08-25-2023 Outside Records [id number]#1 .00OTGTIFF [facility] Outside Recordson 08-23-2023 Outside Records [id number]# 1.00OTGTIFF [facility] Office/Clinic Noteon 023 Office/Clinic Note Patient: SILVIO [...] 300.203 lb Body Mass Index 39.79 kg/m2 [place] Body Weight Calculated 79.52 kg BSA Measured [...] feet. No (more content not included)... Normal [facility] Creatinine W/GFR Point of Ca reon 11-21-2020 Creatinine [Mass/Vol] 1.81 mg/dL High 0.51 - 1.19 mg/dL [employer] Phone: GFR Non- 39 mL/min Low >60 [employer] Phone: GFR/1.73 sq M predicted among non-blacks MDRD (S/P/Bld) [Vol rate/Area] 47 mL/min/{1.73_m2} Low >60 [employer] Phone: GFR/1.73 sq M predicted among non-blacks MDRD (S/P/Bld) [Vol rate/Area] [employer] Phone: Comment on above: Average GFR for 50-5 9 years old: 93 mL/min/1.73sq m Chronic Kidney Disease: <60 mL/min/1.73sq m Kidney failure: <15 mL/min/1.73sq m eGFR calculated using average adult body mass. Additional eGFR calculator available at: http://www.[employer]multiple_crcl_2012.htm Interpretation and review of laboratory results Abnormal [employer] Phone: MRI BRAIN W WO CONTRASTon MRI [...] Octavio Inman MD 11/21/20 Final result Normal [facility] Minimal chronic microvascular disease without acute intracranial abnormality. No abnormal postcontrast enhancement. [employer] Phone: EXAMINATION: MRI OF THE BRAIN WITHOUT [...] The soft tissues demonstrate no acute abnormality. [employer] Phone: Don, Mhpn Incoming Radiant Results From [employer] - 11/21/2020 12:08 PM EST EXAMINATION: MRI [...] acute intracranial abnormality. No abnormal postcontrast enhancement. [employer] Phone: Vital Signs Date Time Vital Sign Value Performing Clinician Pritesh rendon 11-21-2020 11:35-0500 Pulse (Heart Rate) 75 /min [facility] [employer] Phone: 11-21-2020 11:35-0500 Pulse Oximetry 95 % [facility] [employer] Phone: Encounters Encounter Date Encounter Type Care Provider Facility Start: 07-27-2024 End: 07-27-2024 ambulatory Balwinder Miller Facility:[facility] Start: 07-26-2024 ambulatory Breanne Norman Facility :[facility] Start: 07-20-2024 End: 07-20-2024 ambulatory Morgan R Dolce Facility:[facility] Start: 07-09-2024 End: 07-09-2024 ambulatory Morgan R Dolce Facility:[facility] Start: 06-29-2024 End: 06-29-2024 ambulatory Morgan R Dolce Facility:[facility] Start: 06-19-2024 ambulatory [facility] Facility :[facility] Start: 06-07-2024 End: 06-07-2024 ambulatory Maria L Hand Facility:[facility] Start: 06-07-2024 End: 06-07-2024 ambulatory Balwinder Miller Facility: [facility] Start: 06-04-2024 ambulatory Morgan R Dolce Facility :[facility] Start: 05-31-2024 End: 05-31-2024 ambulatory [facility] Facility:[facility] Start: 05-25-2024 [facility] Start: 05-17-2024 End: 05-17-2024 ambulatory [facility] Facility:[facility] Start: 05-11-2024 End: 05-11-2024 Emergency department patient visit Kimberly Jones Facility:[facility] Start: 05-11-2024 End: 05-11-2024 ambulatory Balwinder Miller Facility:[facility] Start: 02-08-2024 End: 02-08-2024 ambulatory Balwinder Miller Facility: [facility] Start: 01-02-2024 End: 01-02-2024 ambulatory Balwinder Miller Facility: [facility] Start: 10-03-2023 End: 10-03-2023 ambulatory Balwinder Miller Facility: [facility] Start: 08-03-2023 End: 08-03-2023 ambulatory Balwinder Miller Facility: [facility] Start: 11-21-2020 End: 11-21-2020 Subsequent hospital visit by physician Yeimi Castro Rn [facility] Special Procedures Start: 11-21-2020 End: 11-24-2020 Patient encounter procedure GRETA GONZALEZ [facility] Start: 11-21-2020 End: 11-23-2020 Subsequent hospital visit by physician Yeimi Mri Rm 1 (1.5t) [facility] Comment on above: Tremor Start: 04-15-2018 End: 04-16-2018 Patient encounter SABINASONIA KATELYN [facility] Procedures Date Procedure Procedure Detail Performing [...] Author Start: 11-21-2021 Creatinine measurement Creatinine monitoring [employer] Phone: Start: 05-20-2020 Influenza vaccination Flu vaccine (#1) [employer] Phone: Start: 01-19-2020 Potassium monitoring Potassium monitoring [employer] Phone: Start: 03-11-2019 Annual Wellness Visit (AWV) Annual Wellness Visit (AWV) [employer] Phone: Start: 12-26-2018 Lipid panel Lipid screen [employer] Phone: Start: 11-13-2018 HbA1c (Bld) [Mass fraction] A1C test (Diabetic or Prediabetic) [employer] Phone: Start: 11-13-2018 TSH Qn TSH testing [employer] Phone: Start: 2014 Screening for malignant neoplasm of colon Colon cancer screen colonoscopy [employer] Phone: Start: 2014 Shingles Vaccine (1 of 2) Shingles Vaccine (1 of 2) [employer] Phone: Start: 1983 DTaP/Tdap/Td vaccine (1 - Tdap) DTaP/Tdap/Td vaccine (1 - Tdap) [employer] Phone: Start: 1983 Hepatitis B vaccine (1 of 3 - Risk 3-dose series) Hepatitis B vaccine (1 of 3 - Risk 3-dose series) [employer] Phone: Start: 1982 Diabetic microalbuminuria test Diabetic microalbuminuria test [employer] Phone: Start: 1979 HIV screening HIV screen [employer] Phone: Start: 1974 Diabetic foot examination Diabetic foot exam [employer] Phone: Start: 1974 Diabetic retinal exam Diabetic retinal exam [employer] Phone: Start: 1970 Pneumococcal 0-64 years Vaccine (1 of 1 - PPSV23) Pneumococcal 0-64 years Vaccine (1 of 1 - PPSV23) [employer] Phone: Start: 1964 Hepatitis C screening Hepatitis C screen [employer] Phone: Payers Date Payer Category Payer Medicare [id number] 2021 Private Health Insurance [id number] 2017 Private Health Insurance [id number] 2014 Medicare [id number] 1964 Unknown [id number] 2.16.8 40.1.715138.3.579.2.175 1964 Unknown [id number] 2.16.8 40.1.049879.3.579.2.718 1964 Unknown [id number] 2.16.8 40.1.321092.3.579.2.718 1964 Unknown [id number] 2.16.8 40.1.192343.3.579.2.718 1964 Unknown [id number] 2.16.8 40.1.054233.3.579.2.718 1964 Unknown [id number] 2.16.8 40.1.331345.3.579.2.8 1964 Unknown [id number] 2.16.8 40.1.859242.3.579.2. 1964 Unknown [id number] 2.16.8 40.1.998878.3.579.2. 1964 Unknown [id number] 2.16.8 40.1.110152.3.579.2. 1964 Unknown [id number] 2.16.8 40.1.538675.3.579.2. 1964 Unknown [id number] 2.16.8 40.1.607226.3.579.2. 1964 Unknown [id number] 2.16.8 40.1.510634.3.579.2. 1964 Unknown [id number] 2.16.8 40.1.499148.3.579.2. 1964 Unknown [id number] 2.16.8 40.1.798493.3.579.2. 1964 Unknown [id number] 2.16.8 40.1.344546.3.579.2. 1964 Unknown [id number] 2.16.8 40.1.747663.3.579.2. 1964 Unknown [id number] 2.16.8 40.1.571378.3.579.2. 1964 Unknown [id number] 2.16.8 40.1.777814.3.579.2. 1964 Unknown [id number] 2.16.8 40.1.971177.3.579.2. 1964 Unknown [id number] 2.16.8 40.1.156083.3.579.2.8 Social History Date Type Detail Facility Start: 11-19-2020 Tobacco smoking stat [facility] Former smoker [employer] Phone: Start: 11-19-2020 Tobacco use and exposure Never used [employer] Phone: Start: 11-19-2020 Alcohol intake Current non-dr sand bobber of alcohol (finding) [employer] Phone: Sex Assigned At Not on file [employer] Phone: Medical Equipment Procedure Code Equipment Code Equipment Origin al Text Equipment Identifier Dates Use three times a day [id number] Start: 11-22-2017 Clinical Note 05-11-2024 Note Date [...] reduce swelling in your legs. ? Take chhx-fgm-jnocimc and prescription medicines only as told by [...] need. This informat (more content not included)... [facility] Clinical Note 05-11-2024 Note Date & Type Note Facility 05-11-2024 Note Patient Education Materials Foll ows: [facility] Medication management note 09-26-2023 Note Date & Type Note Facility 09-26-2023 Note Entered by FOSTER SOLANO on September 26, 2023 09:35:50 EST From: FARHANA SOLANO To: [id number] Sent: 09/26/2023 09:35:50 EST Subject: Medication Management Submitted: Complete:dapagliflozin (Farxiga 10 mg oral tablet) Signed by FARHANA SOLANO 09/26/2023 09:35:00 EST Approved with modifications: dapagliflozin (FARXIGA 10 MG TABLET) take 1 tablet by mouth once daily Qty: 30 tab(s) Days Supply: 30 Refills: 3 Substitutions Allowed Route To Pharmacy - [facility] #[id number] Signed by FARHANA SOLANO From: [id number] To: Balwinder Miller MD Sent: September 24, 2023 8:55:24 AM [employer] Subject: Medication Management Due: September 25, 2023 12:23:24 AM [employer] On Hold Pending Signature Drug: dapagliflozin (Farxiga 10 mg oral tablet), take 1 tablet by mouth once daily Quantity: 30 tab(s) Days Supply: 30 Refills: 4 Substitutions Allowed Notes from Pharmacy: Dispensed Drug: dapagliflozin (Farxiga 10 mg oral tablet), take 1 tablet by mouth once daily Quantity: 30 tab(s) Days Supply: 30 Refills: 0 Substitutions Allowed Notes from Pharmacy: [facility] Summary Purpose Family History No Family History Records FoundNo Family History Records FoundNo Family History Records Found Advance Directives No Advanced Directives Records FoundDocuments on File Type Date Recorded 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 ACP-Advance Directive ACP-Power of Sequins Spooler Latest Code Status on File Code Status Date Activated Date Inactivated Comments Full Code 01/18/2019 9:29 PM 01/19/2019 4:12 PM Full Code 01/18/2019 3:08 PM 01/18/2019 9:29 PM Full Code 09/20/2018 10:02 AM 09/21/2018 2:37 AM Full Code 12/26/2017 10:02 PM 12/27/2017 4:44 PM Full Code 12/26/2017 11:10 AM 12/26/2017 9:52 PM Documents on File Type Date Recorded 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 Was in MRI before information writer was present. [employer] rep has already [...] section and content) DATE CREATED AUTHOR 04/16/2018 [facility] DATE CREATED AUTHOR AUTHOR'S ORGANIZ ATION 11/24/2020 [facility] DATE CREATED AUTHOR AUTHOR'S ORGANIZ ATION 08/03/2024 [facility] Reason for Visit (unrecogniz ed section and content) Status Reason Specialty Diagnoses / Procedures Referred By Contact Referred To Contact Closed Radiology Diagnoses Tremor Procedures MRI BRAIN W WO CONTRAST Greta Gonzalez, DO [address] [place] [address] FOR RECORDS PERTAINING TO PATIENTS WHO ARE [...] BE BASED ON THE PRIMARY CLINICAL RECORDS. [employer] provides no warranty or guarantee of the accuracy or completeness of information in this document.
== END 2024-08-14 12:35 | disposition home or self-care (01) ==
LOC: VC 11:18
PROVIDERS: PCP Radiology Diagnostic Radiology; Visit Provider Radiology Diagnostic Radiology
DX: I80.01 Phlebitis and thrombophlebitis of superficial vessels of right lower extremity (principal)
CPT/HCPCS: 93971; G0463

== ENCOUNTER 2024-08-28 13:51 | Outpatient (OUT) | payer OTHER, SELFPAY ==
--- NOTE | 2024-08-27 15:57 | VEINCLINIC_ITS ---
Vital Signs 08/28/24 14:08 BP 128/68 BP Location Right Brachial BP Position Sitting BP Cuff Size Adult BP Source Manual Cuff Respiration 18 Pulse 67 Pulse Source Monitor Pulse Oximetry (%) 95 Oxygen Delivery Method Room Air Comment The patient's blood pressure is elevated. Varicose Veins Patient in this day for EVLT of I, Jone Vallejo MD personally performed the services described in this documentation, as scribed by Myron Mina RN in my presence and it is both accurate and complete. I, Myron Mina RN, am scribing for, and in the presence of, Dr. Jone Vallejo and in the presence of the patient. [facility] Medical History (Updated 08/28/24 @ 14:15 by Myron Mina) Superficial thrombophlebitis of left leg ?I80.02 - Phlebitis and thrombophlebitis of superficial vessels of left lower extremity (ICD-10) Phlebitis of superficial vein of right lower extremity ?I80.01 - Phlebitis and thrombophlebitis of superficial vessels of right lower extremity (ICD-10) Phlebitis and thrombophlebitis of superficial vessels of right lower extremity ?I80.01 - Phlebitis and thrombophlebitis of superficial vessels of right lower extremity (ICD-10) Hernia ?K46.9 - Unspecified abdominal hernia without obstruction or gangrene (ICD- 10) Heart attack ?I21.9 - Acute myocardial infarction, unspecified (ICD-10) Bilateral leg edema ?R60.0 - Localized edema (ICD-10) Pain due to varicose veins of both lower extremities ?I83.813 - Varicose veins of bilateral lower extremities with pain (ICD-10) COPD (chronic obstructive pulmonary disease) ?J44.9 - Chronic obstructive pulmonary disease, unspecified (ICD-10) Advanced cardiac disease ?I51.9 - Heart disease, unspecified (ICD-10) CHF (congestive heart failure) ?I50.9 - Heart failure, unspecified (ICD-10) Ulcerated leg varices ?I83.009 - Varicose veins of unspecified lower extremity with ulcer of uns pecified site (ICD-10) ?L97.909 - Non-pressure chronic ulcer of unspecified part of unspecified lower leg with unspecified severity (ICD-10) Neuropathy ?G62.9 - Polyneuropathy, unspecified (ICD-10) Diabetes ?E11.9 - Type 2 diabetes mellitus without complications (ICD-10) Surgical History (Updated 08/28/24 @ 14:09 by Myron Mina) Status post laser ablation of incompetent vein ?Z98.890 - Other specified postprocedural states (ICD-10) Status post laser ablation of incompetent vein ?Z98.890 - Other specified postprocedural states (ICD-10) Status post laser ablation of incompetent vein ?Z98.890 - Other specified postprocedural states (ICD-10) H/O gastric sleeve ?Z90.3 - Acquired absence of stomach [part of] (ICD-10) H/O hernia repair ?Z98.890 - Other specified postprocedural states (ICD-10) ?Z87.19 - Personal history of other diseases of the digestive system (ICD-10) Family History (Updated 07/02/24 @ 10:43 by Myron Mina) Other Family history of cancer Heart disease Hypothyroid Social History (Updated 07/03/24 @ 13:38 by Myron Mina) Within the past year, how often did you have a drink containing alcohol: monthly or less Smoking status: Former smoker Non-prescribed substance use: denies use Meds Home Medications and Allergies Home Medications ?Medication ?Instructions ?Recorded ?Confirmed ?Type apixaban 5 mg tablet (Eliquis) 5 mg PO Q12H 07/03/24 07/03/24 History budesonide-formoterol HFA 80 1 inh inhalation BID 07/03/24 07/03/24 History mcg-4.5 mcg/actuation aerosol inhaler (Symbicort) dapagliflozin propanediol 10 mg 10 mg PO DAILY 07/03/24 07/03/24 History tablet (Farxiga) furosemide 20 mg tablet 20 mg PO DAILY 07/03/24 07/03/24 History glimepiride 4 mg tablet 4 mg PO BID 07/03/24 07/03/24 History metoprolol tartrate 25 mg tablet 25 mg PO Q12H 07/03/24 07/03/24 History ranolazine 1,000 mg 1,000 mg PO BID 07/03/24 07/03/24 History tablet,extended release,12 hr Allergies Allergy/AdvReac Type Severity Reaction Status Date / Time hydromorphone (From Dilaudid) Allergy Intermediate Difficulty Verified 07/03/24 15:09 Breathing Assessment and Plan Assessment and Plan (1) Pain due to varicose veins of both lower extremities: Plan f/u evaluation with physician along with left leg limited u/s Jone Willson MD personally performed the services described in this documentation, as scribed by Myron Mina RN in my presence and it is both accurate and complete. IMyron RN, am scribing for, and in the presence of, Dr. Jone Vallejo and in the presence of the patient. Procedures Procedure Instructions Procedures Plan of care: Risks and benefits of the procedure were discussed at length and informed written consent was obtained.? Time-out completed for verification of correct patient, procedure and site.? Staff present during time-out: Myron Mina RN,? Jone Vallejo MD, [facility],R[facility]. Time Out Time_1432 Patient prepped and procedure performed in usual sterile fashion. Risk of injury related to use of Diode laser and/or laser devices? __CR___ ? Serial number of laser used :? [id number] Control panel self test performed, electrical cords in good condition, floor is dry, basin of water available, fire extinguisher in close proximity_CR__ Polycarbonate goggles available and Laser warning signs outside of doors___CR__ Eye protection provided to patient and staff in room_CR___ Use of laser retardant drapes and dull blackened instruments as directed__CR___ Use of nonflammable prep solutions and use of saline soaked sponges to protect tissues as indicated _CR___ Length ____65____ cm Laser operated by __Dr. Vallejo Physician verbal confirmation laser locked in place__CR__ Laser start time (date and time) _08/28/2024@__1451 Laser stop time(date and time) __08/28/2024@_1504 Panda _8.0___ Average laser use ___4082____Joules Average laser use___510 seconds Pulse continuous ___CR_? Pulse intermittent ___ Amount of Tumescent used __350cc____ Evaluated patient for signs and symptoms of electrical injury __CR___ ? Skin clear at insertion site __CR___ Patient tolerated procedure well.? Left leg Coban dressing applied to access site.? Applied Left thigh high leg compression stocking. Will return on 09/04/2024 for Left leg limited venous ultrasound and exam. IJone MD personally performed the services described in this documentation, as scribed by Myron Mina RN in my presence and it is both accurate and complete. I, Myron Mina RN, am scribing for, and in the presence of, Dr. Jone Vallejo and in the presence of the patient.
--- NOTE | 2024-08-27 15:59 | P.DS_ITS ---
Discharge Plan Discharge Disposition: Home, Self-Care Outpatient Diagnostics: VC EXT Venous LT Limited (Routine) Timeframe: 2 Weeks Facility: [facility] - Location: Vein Center Ordered By: Jone Vallejo VC Facility EST LMTD (Routine) Timeframe: 2 Weeks Facility: [facility] - Location: Vein Center Ordered By: Jone Vallejo Follow Up Appointments: 09/04/2024 Plan of Treatment: f/u evaluation with physician along with left leg limited u/s Patient Instructions: Endovenous Ablation (DC) Print Language: Ugandan Discharge Date/Time: 08/28/24 14:16
--- NOTE | 2024-08-28 13:59 | VEIN_ITS ---
[address] [address] Patient Name: SILVIO CROWELL MRN: [id number] date: 1965 Sex: M Assigned Patient Location: Current Patient Location: Accession/Order Number: [id number] Exam Date: 08/28/2024 14:00 Report Date: 08/28/2024 15:21 At the request of: RUPA BINGHAM Procedure: VC Endovenous Ablation 1VeinLT EXAMINATION: VC Endovenous Ablation 1VeinLT HISTORY: I83.813 - Varicose veins of bilateral lower extremities w... The risks and benefits of the procedure had been previously discussed, and were rediscussed at length. Informed written consent was obtained. Myron Mina RN and Samira Mcguire RDMS, RVT assisted. Time out procedure was performed. The left lower extremity was prepared and draped in the usual sterile fashion to allow knee flexion in the sterile field. Duplex ultrasound probe was draped in a sterile cover, sterile transmission gel was used. Venous mapping was performed with the areas of dilation and large tributaries marked. The total length was 65 cm from the entry 3 cm above the ankle to 3 cm below the Saphenofemoral junction. The diameter of the left great saphenous vein ranged from 6.1 mm. A 30 gauge needle and 1% buffered lidocaine was used to anesthetize the entry site. A 4 mm incision was made with a scalpel and the saphenous vein was entered percutaneously under direct ultrasound guidance with a micropuncture set, a single stick was successful in gaining access. A micro-guide wire was inserted and the needle removed. A micro-set including a dilator was inserted over the microwire and the needle and dilator were removed. A guide wire was inserted through the micro-set and guided through the saphenous vein to the saphenofemoral junction. The dilator was removed and an introducer sheath was inserted over the wire until the end of the sheath entered the saphenofemoral junction. The dilator and wire were removed and the 600 micron fiber was introduced and placed and positioned so that it extended beyond the sheath and was 3 cm distal to the saphenofemoral or saphenopopliteal junction. Final position of the fiber was determined by ultrasound guidance and duplex imaging. Arthurcent anesthetic was delivered by ultrasound guidance. 350 cc of fluid was delivered along the entire course of the saphenous vein. The solution consisted of 1000 cc of normal saline with 40 mL of 1% lidocaine and 20 mL of sodium bicarbonate. A final positioning check was made. The energy source was turned on by means of the foot pedal and the fiber and sheath were withdrawn. The total number of Joules delivered was 4082. The laser was active for 510 seconds under continuous pulse, average laser use of 8 J. Laser start time: 2:51 PM Laser stop time: 3:04 PM Date: 08/28/2024. A duplex ultrasound revealed compressibility and flow at the saphenofemoral junction immediately after the procedure. Hemostasis at the access site was achieved. The skin incision of the saphenous vein was closed with a 4 x 4. A compression stocking was applied. Postop instructions were given. A follow up appointment was recommended and scheduled. The patient tolerated the procedure well. Electronically authenticated by: RUPA BINGHAM Date: 08/28/2024 15:21
[2024-08-28] MEDS: LIDOCAINE HCL 1% 100 MG/10 ML MDV INJ (14:00)
[2024-08-28] MEDS: 0.9 % SODIUM CHLORIDE 500 ML, LIDOCAINE HCL 20 ML, SODIUM BICARBONATE 10 MEQ INJ (14:00)
[2024-08-28 14:08] VITALS: BP 128/68; PULSE 67; O2SAT 95
== END 2024-08-28 14:16 | disposition home or self-care (01) ==
LOC: VC 13:51
PROVIDERS: PCP Radiology Diagnostic Radiology; Visit Provider Radiology Diagnostic Radiology
DX: I83.813 Varicose veins of bilateral lower extremities with pain (principal)
CPT/HCPCS: 36478

== ENCOUNTER 2024-09-04 14:50 | Outpatient (OUT) | payer OTHER, SELFPAY ==
--- NOTE | 2024-09-04 15:04 | VEIN_ITS ---
Patient Name: SILVIO CROWELL MR#: [id number] : 1965 Exam Date: 09/04/2024 Ordering Doctor: DR RUPA BINGHAM M.D. RADIOLOGY REPORT PROCEDURE: [facility] EST LMTD VEIN CENTER - OFFICE VISIT FOLLOW UP COMPARISON: [facility] EST LMTD, 08/14/2024. [facility] EST LMTD, 07/23/2024. PROGRESS NOTES: The patient reports no significant issues following intravenous laser ablation of the left great saphenous vein. The patient did wear his compression stockings. The patient did not require oral analgesics. Physical exam demonstrates the incision to be sealed. The great saphenous vein cannot be palpated likely related to patient body habitus. No erythema or warmth to suggest cellulitis or thrombophlebitis. No active ulceration Review of the ultrasound performed the same day demonstrates occlusive thrombus extending throughout the treated left great saphenous vein. No deep vein thrombus. The patient expressed a desire to proceed with treatment of incompetent left small saphenous vein. VEIN/[facility] EST LMTD IMPRESSION: 1. Successful ablation of the left great saphenous vein 2. Persistent incompetent left small saphenous. PLAN: Intravenous laser ablation left small saphenous vein Nurse notes, history and physical were reviewed and confirmed, see attached forms. The nurse was present throughout the physical exam and consultation Dictated by: Good Robbins MD on 09/04/2024 at 15:47 Approved by: Good Robbins MD on 09/04/2024 at 16:05
--- NOTE | 2024-09-04 15:04 | VEIN_ITS ---
Patient Name: SILVIO CROWELL MR#: [id number] : 1965 Exam Date: 09/04/2024 Ordering Doctor: DR RUPA BINGHAM M.D. RADIOLOGY REPORT PROCEDURE: VC EXT VENOUS LT LIMITED COMPARISON: None. INDICATIONS: I80.02 - Phlebitis and thrombophlebitis of superficial ve... TECHNIQUE: Lower extremity burgess scale and Duplex Doppler evaluation of the deep venous system from the inguinal ligament through the calf veins. FINDINGS: REGION: Left lower extremity. THROMBI: Negative for DVT. Heat induced thrombus visualized 5.3cm from the SFJ. The heat induced thrombus extends from groin to mid calf. COMPRESSIBILITY: Non-compressible segments corresponding to thrombus FLOW: Areas of no flow corresponding to thrombus CONCLUSION: Post ablation occlusion of the left great saphenous vein with no deep vein thrombus Dictated by: Good Robbins MD on 09/04/2024 at 15:32 Approved by: Good Robbins MD on 09/04/2024 at 15:33
--- NOTE | 2024-09-04 15:29 | VEINCLINIC_ITS ---
Varicose Veins Patient in this day for follow up ultrasound post EVLT of left leg GSV. Good Willson MD personally performed the services described in this documentation, as scribed by Samira Mcguire RVT, RDMS in my presence and it is both accurate and complete. Samira Willson RVT, RDMS, am scribing for, and in the presence of, Dr. Good Robbins and in the presence of the patient. Review of Systems ROS Narrative Good Willson MD personally performed the services described in this documentation, as scribed by Samira Mcguire RVT, RDMS in my presence and it is both accurate and complete. Anamika, Samira Mcguire RVT, RDMS, am scribing for, and in the presence of, Dr. Good Robbins and in the presence of the patient. Status of ROS 10 or more systems reviewed and unremark able except as noted in history and below Cardiovascular Reports: edema Integumentary/Breast Reports: itching, redness, skin pain, skin tenderness, skin swelling, new lesion, changing lesion, non-healing lesion and changes in skin color Neurological Reports: numbness in extremities and weakness in extremities [facility] Medical History (Updated 08/28/24 @ 14:15 by Myron Mina) Superficial thrombophlebitis of left leg ?I80.02 - Phlebitis and thrombophlebitis of superficial vessels of left lower extremity (ICD-10) Phlebitis of superficial vein of right lower extremity ?I80.01 - Phlebitis and thrombophlebitis of superficial vessels of right lower extremity (ICD-10) Phlebitis and thrombophlebitis of superficial vessels of right lower extremity ?I80.01 - Phlebitis and thrombophlebitis of superficial vessels of right lower extremity (ICD-10) Hernia ?K46.9 - Unspecified abdominal hernia without obstruction or gangrene (ICD- 10) Heart attack ?I21.9 - Acute myocardial infarction, unspecified (ICD-10) Bilateral leg edema ?R60.0 - Localized edema (ICD-10) Pain due to varicose veins of both lower extremities ?I83.813 - Varicose veins of bilateral lower extremities with pain (ICD-10) COPD (chronic obstructive pulmonary disease) ?J44.9 - Chronic obstructive pulmonary disease, unspecified (ICD-10) Advanced cardiac disease ?I51.9 - Heart disease, unspecified (ICD-10) CHF (congestive heart failure) ?I50.9 - Heart failure, unspecified (ICD-10) Ulcerated leg varices ?I83.009 - Varicose veins of unspecified lower extremity with ulcer of unspecified site (ICD-10) ?L97.909 - Non-pressure chronic ulcer of unspecified part of unspecified lower leg with unspecified severity (ICD-10) Neuropathy ?G62.9 - Polyneuropathy, unspecified (ICD-10) Diabetes ?E11.9 - Type 2 diabetes mellitus without complications (ICD-10) Surgical History (Updated 08/28/24 @ 14:09 by Myron Mina) Status post laser ablation of incompetent vein ?Z98.890 - Other specified postprocedural states (ICD-10) Status post laser ablation of incompetent vein ?Z98.890 - Other specified postprocedural states (ICD-10) Status post laser ablation of incompetent vein ?Z98.890 - Other specified postprocedural states (ICD-10) H/O gastric sleeve ?Z90.3 - Acquired absence of stomach [part of] (ICD-10) H/O hernia repair ?Z98.890 - Other specified postprocedural states (ICD-10) ?Z87.19 - Personal history of other diseases of the digestive system (ICD-10) Family History (Updated 07/02/24 @ 10:43 by Myron Mina) Other Family history of cancer Heart disease Hypothyroid Social History (Updated 07/03/24 @ 13:38 by Myron Mina) Within the past year, how often did you have a drink containing alcohol: monthly or less Smoking status: Former smoker Non-prescribed substance use: denies use Meds Home Medications and Allergies Home Medications ?Medication ?Instructions ?Recorded ?Confirmed ?Type apixaban 5 mg tablet (Eliquis) 5 mg PO Q12H 07/03/24 07/03/24 History budesonide-formoterol HFA 80 1 inh inhalation BID 07/03/24 07/03/24 History mcg-4.5 mcg/actuation aerosol inhaler (Symbicort) dapagliflozin propanediol 10 mg 10 mg PO DAILY 07/03/24 07/03/24 History tablet (Farxiga) furosemide 20 mg tablet 20 mg PO DAILY 07/03/24 07/03/24 History glimepiride 4 mg tablet 4 mg PO BID 07/03/24 07/03/24 History metoprolol tartrate 25 mg tablet 25 mg PO Q12H 07/03/24 07/03/24 History ranolazine 1,000 mg 1,000 mg PO BID 07/03/24 07/03/24 History tablet,extended release,12 hr Allergies Allergy/AdvReac Type Severity Reaction Status Date / Time hydromorphone (From Dilaudid) Allergy Intermediate Difficulty Verified 07/03/24 15:09 Breathing Exam Narrative Exam Narrative: Good Willson MD personally performed the services described in this documentation, as scribed by Samira Mcguire RVT, RDMS in my presence and it is both accurate and complete. Samira Willson RVT, RDMS, am scribing for, and in the presence of, Dr. Good Robbins and in the presence of the patient. Constitutional Documenting provider has reviewed patient's vital signs: yes Common normals: oriented x3 Nutritional appearance: overweight Cardio Peripheral pulses: posterior tibial pulses present and dorsalis pedis pulses present Extremity Common normals: normal capillary refill General: calf tenderness and edema Right lower extremity: lower leg Right lower leg: inspection and palpation Left lower extremity: lower leg Left lower leg: inspection and palpation Neuro Common normals: oriented x3 Results Imaging Venous US: Radiologist's impression: The ultrasound demonstrates Heat induced thrombus visualized 5.3cm from the SFJ. The heat induced thrombus extends from groin to mid calf. Assessment and Plan Assessment and Plan (1) Superficial thrombophlebitis of left leg: Plan Patient in today for follow up ultrasound of lower extremity following treatment of EVLT of left leg GSV completed on 08/28/24. Good Willson MD personally performed the services described in this documentation, as scribed by Samira Mcguire RVT, RDMS in my presence and it is both accurate and complete. Samira Willson RVT, RDMS, am scribing for, and in the presence of, Dr. Good Robbins and in the presence of the patient.
--- NOTE | 2024-09-04 15:32 | W.VEIN ---
Discharge Plan Discharge Disposition: Home, Self-Care Outpatient Diagnostics: VC Endovenous Ablation 1VeinLT (Routine) Timeframe: 2 Weeks Facility: [facility] - Location: Vein Center Ordered By: Good Robbins Follow Up Appointments: 09/25/2023 Plan of Treatment: EVLT of left leg SSV Print Language: Kinyarwanda Discharge Date/Time: 09/04/24 15:37
== END 2024-09-04 15:37 | disposition home or self-care (01) ==
PROVIDERS: PCP Radiology Diagnostic Radiology; Visit Provider Radiology Diagnostic Radiology
DX: I80.02 Phlebitis and thrombophlebitis of superficial vessels of left lower extremity (principal)
CPT/HCPCS: 93971; G0463

== ENCOUNTER 2024-10-10 12:54 | Outpatient (OUT) | payer OTHER, SELFPAY ==
--- NOTE | 2024-10-08 10:39 | V.VEINS.HP ---
Vital Signs 10/10/24 13:02 BP 112/64 BP Location Right Brachial BP Position Sitting BP Cuff Size Adult BP Source Manual Cuff Respiration 16 Pulse 78 Pulse Source Monitor Varicose Veins Patient in this day for EVLT of left SSV Jone Willson MD personally performed the services described in this documentation, as scribed by Myron Mina RN in my presence and it is both accurate and complete. IMyron RN, am scribing for, and in the presence of, Dr. Jone Vallejo and in the presence of the patient. Review of Systems ROS Narrative Jone Willson MD personally performed the services described in this documentation, as scribed by Myron Mina RN in my presence and it is both accurate and complete. IMyron RN, am scribing for, and in the presence of, Dr. Jone Vallejo and in the presence of the patient. Status of ROS 10 or more systems reviewed and unremarkable except as noted in history and below Cardiovascular Reports: edema Integumentary/Breast Reports: itching, redness, skin pain, skin tenderness, skin swelling, new lesion, changing lesion, non-healing lesion and changes in skin color Neurological Reports: numbness in extremities and weakness in extremities [facility] Medical History (Updated 08/28/24 @ 14:15 by Myron Mina) Superficial thrombophlebitis of left leg ?I80.02 - Phlebitis and thrombophlebitis of superficial vessels of left lower extremity (ICD-10) Phlebitis of superficial vein of right lower extremity ?I80.01 - Phlebitis and thrombophlebitis of superficial vessels of right lower extremity (ICD-10) Phlebitis and thrombophlebitis of superficial vessels of right lower extremity ?I80.01 - Phlebitis and thrombophlebitis of superficial vessels of right lower extremity (ICD-10) Hernia ?K46.9 - Unspecified abdominal hernia without obstruction or gangrene (ICD-10) Heart attack ?I21.9 - Acute myocardial infarction, unspecified (ICD-10) Bilateral leg edema ?R60.0 - Localized edema (ICD-10) Pain due to varicose veins of both lower extremities ?I83.813 - Varicose veins of bilateral lower extremities with pain (ICD-10) COPD (chronic obstructive pulmonary disease) ?J44.9 - Chronic obstructive pulmonary disease, unspecified (ICD-10) Advanced cardiac disease ?I51.9 - Heart disease, unspecified (ICD-10) CHF (congestive heart failure) ?I50.9 - Heart failure, unspecified (ICD-10) Ulcerated leg varices ?I83.009 - Varicose veins of unspecified lower extremity with ulcer of unspecified site (ICD-10) ?L97.909 - Non-pressure chronic ulcer of unspecified part of unspecified lower leg with unspecified severity (ICD-10) Neuropathy ?G62.9 - Polyneuropathy, unspecified (ICD-10) Diabetes ?E11.9 - Type 2 diabetes mellitus without complications (ICD-10) Surgical History (Updated 10/10/24 @ 13:21 by Myron Mina) Status post laser ablation of incompetent vein ?Z98.890 - Other specified postprocedural states (ICD-10) Status post laser ablation of incompetent vein ?Z98.890 - Other specified postprocedural states (ICD-10) Status post laser ablation of incompetent vein ?Z98.890 - Other specified postprocedural states (ICD-10) Status post laser ablation of incompetent vein ?Z98.890 - Other specified postprocedural states (ICD-10) H/O gastric sleeve ?Z90.3 - Acquired absence of stomach [part of] (ICD-10) H/O hernia repair ?Z98.890 - Other specified postprocedural states (ICD-10) ?Z87.19 - Personal history of other diseases of the digestive system (ICD-10) Family History (Updated 07/02/24 @ 10:43 by Myron Mina) Other Family history of cancer Heart disease Hypothyroid Social History (Updated 07/03/24 @ 13:38 by Myron Mina) Within the past year, how often did you have a drink containing alcohol: monthly or less Smoking status: Former smoker Non-prescribed substance use: denies use Meds Home Medications and Allergies Home Medications ?Medication ?Instructions ?Recorded ?Confirmed ?Type apixaban 5 mg tablet (Eliquis) 5 mg PO Q12H 07/03/24 07/03/24 History budesonide-formoterol HFA 80 1 inh inhalation BID 07/03/24 07/03/24 History mcg-4.5 mcg/actuation aerosol inhaler (Symbicort) dapagliflozin propanediol 10 mg 10 mg PO DAILY 07/03/24 07/03/24 History tablet (Farxiga) furosemide 20 mg tablet 20 mg PO DAILY 07/03/24 07/03/24 History glimepiride 4 mg tablet 4 mg PO BID 07/03/24 07/03/24 History metoprolol tartrate 25 mg tablet 25 mg PO Q12H 07/03/24 07/03/24 History ranolazine 1,000 mg 1,000 mg PO BID 07/03/24 07/03/24 History tablet,extended release,12 hr Allergies Allergy/AdvReac Type Severity Reaction Status Date / Time hydromorphone (From Dilaudid) Allergy Intermediate Difficulty Verified 07/03/24 15:09 Breathing Exam Narrative Exam Narrative: Jone Willson MD personally performed the services described in this documentation, as scribed by Myron Mina RN in my presence and it is both accurate and complete. IMyron RN, am scribing for, and in the presence of, Dr. Jone Vallejo and in the presence of the patient. Constitutional Documenting provider has reviewed patient's vital signs: yes Common normals: oriented x3 Nutritional appearance: overweight Cardio Peripheral pulses: posterior tibial pulses present and dorsalis pedis pulses present Extremity Common normals: normal capillary refill General: calf tenderness and edema Right lower extremity: lower leg Right lower leg: inspection and palpation Left lower extremity: lower leg Left lower leg: inspection and palpation Neuro Common normals: oriented x3 Assessment and Plan Assessment and Plan (1) Pain due to varicose veins of both lower extremities: Plan f/u evaluation with physician along with left leg limited u/s Jone Willson MD personally performed the services described in this documentation, as scribed by Myron Mina RN in my presence and it is both accurate and complete. Myron Willson RN, am scribing for, and in the presence of, Dr. Jone Vallejo and in the presence of the patient. Procedures Procedure Instructions Procedures Plan of care: Risks and benefits of the procedure were discussed at length and informed written consent was obtained.? Time-out completed for verification of correct patient, procedure and site.? Staff present during time-out: Myron Mina RN,? Jone Vallejo MD, Shreyaephraim Moyaileana [facility] Time Out Time_1327 Patient prepped and procedure performed in usual sterile fashion. Risk of injury related to use of Diode laser and/or laser devices__CR___ ? Serial number of laser used :? [id number] Control panel self test performed, electrical cords in good condition, floor is dry, basin of water available, fire extinguisher in close proximity_CR__ Polycarbonate goggles available and Laser warning signs outside of doors___CR__ Eye protection provided to patient and staff in room_CR___ Use of laser retardant drapes and dull blackened instruments as directed__CR___ Use of nonflammable prep solutions and use of saline soaked sponges to protect tissues as indicated _CR___ Length __40 cm Laser operated by _Dr. Robbins Physician verbal confirmation laser locked in place__CR__ Laser start time (date and time) _10/10/2024@_1345 Laser stop time(date and time) __10/10/2024@_1350 Panda _8.0___ Average laser use __2163 Joules Average laser use__270 seconds Pulse continuous ___CR_? Pulse intermittent ___ Amount of Tumescent used _175cc Evaluated patient for signs and symptoms of electrical injury __CR___ ? Skin clear at insertion site __CR___ Patient tolerated procedure well.? Left leg Coban dressing applied to access site.? Applied Left thigh high leg compression stocking. Will return on 10/18/2024 for Left leg limited venous ultrasound and exam. IJone MD personally performed the services described in this documentation, as scribed by Myron Mina RN in my presence and it is both accurate and complete. I, Myron Mina RN, am scribing for, and in the presence of, Dr. Jone Vallejo and in the presence of the patient.
--- NOTE | 2024-10-08 10:46 | W.VEIN ---
Discharge Plan Discharge Disposition: Home, Self-Care Outpatient Diagnostics: VC Facility EST LMTD (Routine) Timeframe: 2 Weeks Facility: [facility] - Location: Vein Center Ordered By: Good Robbins VC EXT Venous LT Limited (Routine) Timeframe: 2 Weeks Facility: [facility] - Location: Vein Center Ordered By: Good Robbins Follow Up Appointments: 10/18/2024 Plan of Treatment: f/u evaluation with physician along with left leg limited u/s Patient Instructions: Endovenous Ablation (DC) Print Language: Yoruba Discharge Date/Time: 10/10/24 13:23
[2024-10-10] MEDS: 0.9 % SODIUM CHLORIDE 500 ML, LIDOCAINE HCL 20 ML, SODIUM BICARBONATE 10 MEQ INJ (12:55)
[2024-10-10] MEDS: LIDOCAINE HCL 1% 100 MG/10 ML MDV INJ (12:56)
--- NOTE | 2024-10-10 12:57 | VEIN_ITS ---
[address] [address] Patient Name: SILVIO CROWELL MRN: [id number] date: 1965 Sex: M Assigned Patient Location: Current Patient Location: Accession/Order Number: [id number] Exam Date: 10/10/2024 13:00 Report Date: 10/10/2024 14:00 At the request of: BALWINDER LYON Procedure: VC Endovenous Ablation 1VeinLT EXAMINATION: VC Endovenous Ablation 1VeinLT HISTORY: I83.813 - Varicose veins of bilateral lower extremities w... The risks and benefits of the procedure had been previously discussed, and were rediscussed at length. Informed written consent was obtained. Myron Mina RN and Shreya Cummings RDMS assisted. Time out procedure was performed. The left lower extremity was prepared and draped in the usual sterile fashion to allow knee flexion in the sterile field. Duplex ultrasound probe was draped in a sterile cover, sterile transmission gel was used. Venous mapping was performed with the areas of dilation and large tributaries marked. The total length was 40 cm from the entry just above the ankle to just proximal to its insertion into the musculature (thigh extension).. The diameter of the left small saphenous vein ranged from 5.5 mm. A 30 gauge needle and 1% buffered lidocaine was used to anesthetize the entry site. A 4 mm incision was made with a scalpel and the saphenous vein was entered percutaneously under direct ultrasound guidance with a micropuncture set, a single stick was successful in gaining access. A micro-guide wire was inserted and the needle removed. A micro-set including a dilator was inserted over the microwire and the needle and dilator were removed. A guide wire was inserted through the micro-set and guided through the saphenous vein to the saphenofemoral junction. The dilator was removed and an introducer sheath was inserted over the wire until the end of the sheath entered the saphenofemoral junction. The dilator and wire were removed and the 600 micron fiber was introduced and placed and positioned so that it extended beyond the sheath and was 3 cm distal to the saphenofemoral or saphenopopliteal junction. Final position of the fiber was determined by ultrasound guidance and duplex imaging. Tumescent anesthetic was delivered by ultrasound guidance. 175 cc of fluid was delivered along the entire course of the saphenous vein. The solution consisted of 1000 cc of normal saline with 40 mL of 1% lidocaine and 20 mL of sodium bicarbonate. A final positioning check was made. The energy source was turned on by means of the foot pedal and the fiber and sheath were withdrawn. The total number of Joules delivered was 2163. The laser was active for 270 seconds under continuous pulse, average laser use of 8 J. Laser start time: 1:45 PM Laser stop time: 1:50 PM Date: 10/10/2024. A duplex ultrasound revealed compressibility and flow at the saphenofemoral junction immediately after the procedure. Hemostasis at the access site was achieved. The skin incision of the saphenous vein was closed with a 4 x 4. A compression stocking was applied. Postop instructions were given. A follow up appointment was recommended and scheduled. The patient tolerated the procedure well. Electronically authenticated by: RUPA BINGHAM Date: 10/10/2024 14:00
[2024-10-10 13:02] VITALS: BP 112/64; PULSE 78
== END 2024-10-10 13:23 | disposition home or self-care (01) ==
LOC: VC 12:55
PROVIDERS: PCP Radiology Diagnostic Radiology; Visit Provider Radiology Diagnostic Radiology
DX: I83.813 Varicose veins of bilateral lower extremities with pain (principal)
CPT/HCPCS: 36478

== ENCOUNTER 2024-10-23 13:22 | Outpatient (OUT) | payer OTHER, SELFPAY ==
--- NOTE | 2024-10-23 13:25 | VEIN_ITS ---
Patient Name: SILVIO CROWELL MR#: [id number] : 1965 Exam Date: 10/23/2024 Ordering Doctor: DR BALWINDER LYON M.D. RADIOLOGY REPORT PROCEDURE: VC EXT VENOUS LT LIMITED COMPARISON: VC EXT VENOUS LT LIMITED, 09/04/2024. INDICATIONS: I80.02 - Phlebitis and thrombophlebitis of superficial ve... TECHNIQUE: Lower extremity burgess scale and Duplex Doppler evaluation of the deep venous system from the inguinal ligament through the calf veins. FINDINGS: REGION: Left lower extremity. THROMBI: Negative for DVT. Heat induced thrombus visualized arising at distal thigh SSV and continues through distal calf. COMPRESSIBILITY: Non-compressible segments corresponding to thrombus FLOW: Areas of no flow corresponding to thrombus OTHER: CONCLUSION: 1. Successful post ablation occlusion of left small saphenous vein. Dictated by: Jone Vallejo M.D. on 10/23/2024 at 14:23 Approved by: Jone Vallejo M.D. on 10/23/2024 at 14:24
--- NOTE | 2024-10-23 13:25 | VEIN_ITS ---
Patient Name: SILVIO CROWELL MR#: [id number] : 1965 Exam Date: 10/23/2024 Ordering Doctor: DR BALWINDER LYON M.D. RADIOLOGY REPORT PROCEDURE: [facility] EST LMTD VEIN CENTER - OFFICE VISIT FOLLOW UP [facility]. PROGRESS NOTES: The patient reports improvement in leg symptoms. There has been interval reduction in varicosities. The patient has followed our recommendations to walk 20-30 minutes once or twice per day since the procedure. Physical exam demonstrates decrease in varicosities of the leg. Persistent skin discoloration and persistent open wound are identified along the lower left leg. Review of the ultrasound performed the same day demonstrates occlusive thrombus extending throughout the treated vein(s), see separate report, consistent with a successful ablation. No thrombus extending into or beyond the saphenofemoral junction. The patient expressed a desire to proceed with treatment of remaining incompetent varicosities. The patient was informed that treatment was a process and would require several procedures/sessions. VEIN/[facility] LMTD IMPRESSION: 1. Successful ablation of the left small saphenous vein(s). 2. Persistent varicose veins and lower extremity symptoms. PLAN: 1. Endovenous ablation of lower right leg rn physician office veins. Nurse notes, history and physical were reviewed and confirmed, see attached forms. The nurse was present throughout the physical exam and consultation Dictated by: Jone Vallejo M.D. on 10/23/2024 at 14:24 Approved by: Jone Vallejo M.D. on 10/23/2024 at 14:26
--- OUTSIDE RECORDS SUMMARY | 2024-10-23 13:35 | XMS_ITS | CCD ---
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 Name Role Phone RORY ZEPEDA Unavailable Unavailable BALWINDER MILLER Unavailable Unavailable GRETA GONZALEZ Referring Unavailab BALWINDER Núñez Primary Care Unavailable Balwinder Miller Primary Care Provider [phone] Ian Lynn Attending Unavaila Balwinder Monte Primary Care Unavailable Ian Lynn Admitting Unavaila Dominick Tan Attending Unavailable Dominick Chavira Admitting Unavailable Balwinder Miller Primary Care Unavailable Dolce, Morgan R Attending Unavailable Balwinder Miller Primary Care Unavailable Dolce, Morgan R Admitting Unavailable Balwinder Miller Primary Care Unavailable Copsey, Breanne M Attending Unavailable Copreji, Breanne M Admitting Unavailable Balwinder Miller Attending Unavailable Balwinder Miller Primary Care Unavailable Balwinder Mliler Admitting Unavailable Balwinder Miller Primary Care Unavailable Copsey, Breanne M Admitting Unavailable Copsey, Breanen M Attending Unavailable Balwinder Miller Primary Care Unavailable Copsey, Breanne M Admitting Unavailable Copsey, Breanne M Attending Unavailable Balwinder Miller Primary Care Unavailable Copsey, Breanne M Attending Unavailable Copsey, Breanne M Admitting Unavailable Dolce, Morgan R Attending Unavailable Balwinder Miller Primary Care Unavailable Dolce, Morgan R Admitting Unavailable Dolce, Morgan R Attending Unavailable Balwinder Miller Primary Care Unavailable Dolce, Morgan R Admitting Unavailable Balwinder Miller Primary Care Unavailable Yazan, Maria L Attending Unavailable Maria L Hand Admitting Unavailable Dolce, Morgan R Attending Unavailable Balwinder Miller Primary Care Unavailable Dolce, Morgan R Admitting Unavailable Dominick Chavira Admitting Unavailable Dominick Chavira Attending Unavailable Balwinder Miller Primary Care Unavailable Balwinder Miller Primary Care Unavailable Breanne Norman Admitting Unavailable Breanne Norman Attending Unavailable Balwinder Miller Primary Care Unavailable Balwinder Miller Attending Unavailable Doldelgado, Morgan R Attending Unavailable Balwinder Miller Primary Care Unavailable Dolce, Morgan R Admitting Unavailable Doldelgado, Morgan R Attending Unavailable Balwinder Miller Primary Care Unavailable Dolce, Morgan R Admitting Unavailable Balwinder Millre Primary Care Unavailable Breanne Norman Attending Unavailable Breanne Norman Admitting Unavailable Balwinder Miller Attending Unavailable Balwinder Miller Primary Care Unavailable Balwinder Miller Primary Care Unavailable Breanne Norman Admitting Unavailable Breanne Norman Attending Unavailable Balwinder Miller Attending Unavailable Balwinder Miller Primary Care Unavailable Dominick Chavira Attending Unavailable Balwinder Miller Primary Care Unavailable Dominick Chavira Admitting Unavailable Kimberly Jones Attending Unavailable Kimberly Jones Admitting Unavailable Balwinder Miller Primary Care Unavailable Allergies Allergy Classification Reported Allergen(s) Allergy Type Date of Onset Reaction(s) Facility (2 sources) NSAIDs Propensity to adverse reactions to drug 9 [employer] Phone: (1 source) HYDROmorphone; Translations: [Dilaudid] Drug Allergy [facility] Repository Medications Current Medications Medication Drug [...] Type 2 diabetes mellitus without complication, unspecified group home insulin use status 1 kit by Does [...] weeks ago today 09-20-18 0 Active Pediatric Yqkfoqvi-Ucmcygum-K (FLINTSTONES COMPLETE PO) (2 sources) Pediatric Multivit-Minerals- C (FLINTSTONES COMPLETE PO) Take by mouth 0 Active Ckpdsjrx-Cbe-Bl-FA ( VITAMINS PO) (2 sources) take 1 tablet by mouth once daily Kzsvfpqe-Ich-Lt-FA ( VITAMINS PO) Take 1 tablet by [...] 1 dose by inhalation once daily Umeclidinium [place] (INCRUSE ELLIPTA) 62.5 MCG/INH AEPB Indications: Chronic [...] disease (1 source) Atherosclerotic heart disease of [place] coronary artery without angina pectoris; Translations: [Atherosclerotic heart disease of [place] coronary artery without angina pectoris] Onset: 04-15-2018 [...] Interpretation Reference Range Facility Wound Care Noteon 10-22-2024 Wound Care Note [id number] 2 [id number] [facility] Coding Summaryon 10-19-2024 Coding Summary HTMLBase 64 PpococipSEg0mXr+PGhlY WQ+BY9WXNCgX81hwITfyC 1jW7CHRNeFBiboOBUDFUs VPvVrotHmHU8sgZRrASYz IC8+JG8xXRFtGjddbRGzr 9Y0gKB5A43tvj5qXNhfbS E8QGEkLyNwbqgol0pjeNn 6IDcuNmluOyBt DHCvcC54JZI0wA97Lw43n UJpcPDgj6hroCp3HoPcBL QxISB0fHihIYhka6SqERP xX37yrUTzz5W9 WGKezHwujZBeHjBpkKZ5s R3hWWofpqoqs0lgihybHh h3qe10dRJgx4A6nOP9W7J qxpA8OUAmhDZs FepruSEUeO3rxitor7hbo vbvDgYcQGIuFHz9AKz7CP TygBcpGvIfQE44IWU2LHH spmZsM4TuJCTi cAkrFsW4a4O9Bc5BM6OPN tjoN5JILMZUKJlfkWF+PC 18ot54H0PtTedrJgv8NJG aELQ3bCU6fU0c FJCrTNbxf0K0zKR4Q1Nfv vBqrc3ay9pqRYOiFSijQ6 1umDDtj9J9MYWbvJM3YBM hoSdvDiBghS19 Oyc+WREtqOsnd0RoHjhcl 9bzv8ifpDl8QvydDXIcoi NriXhkIDI7z9WsJi7jNKI jyBO9yZO9jC8j DsGbHpQ5BObwH886XgBzn BOzSwxkW54uS1VqrQX+PH AxJzy5MXPjxTiaCE2tF2Y hZGRpbmctbGVm dPzhHD8yAGIcpfldFAUjx M0wTPYmR5c3QkZuNyO2MA tiL3AcJUWtjfjuKy90jD8 iNuVgKjO1JCec P4ZpvmY8KGQvmUUyOGxmL OR6O04oy6S9HDFbASVfKU O0lZX7mA3uaHnpsqwafMQ mdDsgdmVydGlj VUqeJZxoC491QPMedMvuM kNvZGluZyBEYXRlOiAgMD EvMzEvMjAyNTwvdGQ+PHR cLXP2dQalLJEm rLTfKBvsIl3dzXmvyXosQ I3qLKUekbubGCLwiQ3zCY DlqNMhoYrdJZ6dAURbigp dv952WfKwISI7 VBPfgOSrI8UdqA1tXxOeD ALwLHQuL4JkyOIuEZprO5 08XHkvPeX1ZQTiwyZrC7P sLWFsaWduOiB0 r2W2Ae4Jq0IuxwyiM1Kjo WOtOmXfKnjhAWn2C7YaFt wvdHI+VB11RKGdZX32CVz 3TDW2vGvjDHjc XZWsH5NxdL2kRvBuQCZnY GRkOyc+PHRhYmxlIHdpZH RoPScxMDAlJyBzdHlsZT0 uPe4fFHSdLJZk zOfmaDHeKdPnq8aoCTZlT GomIG0iiNuqT6BmzJL8EF Udx8a9Px60S70jX4MrgAE +WGDqaQF7lSX3 oY6xWxJdQfL9KYibQ591E vEfhZWjIpuzl0cal4eenO y7TeX7UUNmwgAhyTmiPQS 5t2JgCh57Z57n IHdpZHRoPSIxNSUiIHZhb Nlqbk3qrA5rUe3+PGNvbC B3zDY7iF9tWbDjWkA4BJi iQ296AxZilAOd Nnsdm8oib3tmjUl2ApTcF TYvioApxYnsBSG5t6AeOv 34W5JmtUuna5DxUqz5so4 6jQSsn4T4zNB6 M8XyEFBxozxbrUCkxYzuP T6vHHRuiqwuFRSxgI8tUB JoV0l1LfFfCoT1TLaeS4K kuhI8XOTmmYFg QBLnlVVJdU3sichnh1svv fszXsNuIPSaEVm6HNx3PG NriJwkInYiTGS9ZjL6TKI 9gQXnyH1ajThp tsgoaU9pZbk+VCO3hIWht OLLHJ0tJgdvmBK+PHRkIH Z4pBaiHMppKBZexM9uXNI tB7c8SoQaUrA6 GJeoU8JrokG3DEEleEIjI JYicTFRvJ6suhggh7mkxx nnLcGrQCVdHSw7VHk6ODL saWduOiBsZWZ0 FrP5XGS0bNBdeC3dvLuxu iaguK5oNeh+QmlydGggRG Y8DYf8B9DlWub3MXGvhLm iMH7mhFAvEJob Od0gaZludFjrHJ2xFFIjq tgix567LqCkl6vhSSBnrZ PdCPgrBQO3U78tx3Q1EVZ jADFgBZR3cNH5 iQ2hmNjnilnnqBIlpTjwf yXuoHcwSFvaMWefE903RA XwaWctBuFaHRl1Q3DvQtu 0IOXvpOjrLV2o yKHfJTkzSj5uxLasxXxhD D7sMBVpgeapx717BiRev7 ebJXHxwRRhOXhgKOU6J14 oa8X4JCTdFJAa OQG3gND9pF7wsOdallarw GVmdDsgdmVydGljYWwtYW cjY040QSIwqIheJnUdzTx 3X1StGja5REKe wCzcKY4oiXTgNAkdFb2xp GjioYoePK5zWQSepgeau9 49BqVyc5ruZLFwpZNgKZg aBEB1E40fa6I6 WVUxCQMfVLC0pTW4vH7rh GlnbjogbGVmdDsgdmVydG ulXQauCPsrG155VABlkYt nPlBhdGllbnQg OVgvDHq3C7XjZxzpmQH+P F92COCaPR60xQHovNEqk0 griGy9IfIkHXGxFSY9vSj wUOhlp5CaXDZi E46jtSLec1Q1ZQHgtVbbs ZCtYmHzlYN4sA8dUWinyf kfp4tgsklcAgysy8voio5 1eG97Y18kJTrl ZHRoPSIzMCUiIHZhbGlnb v5syT7kWd5+CNCulHS4sU Q1fW1jDFZpMnU3VYizL90 9InRvcCIvPjxj v5tyo5tvvBu8UuI9XPAgy pUkbOvcLRZ8f4VmOp40F8 9sIHdpZHRoPSIyMCUiIHZ nqMlwye4gsQ2a Ii8+JTFbjOS0rBD8wV2aB cReFpV1QAtiD112HfRybZ ZfIizxK93bP9QjxUM+PHR iNrm4KWPbzCyl OO3reALyMXbsFe4eIRU7W dFrRiQfPSrsF9LuMSTyxo dsjdbtzSU6XNUnNGIyvV8 9Nf9wtMyhINJf vMXXrR7dxcrfg7tjtxprH xZgJFYhNHx3ZOg9XOBgkD oxFvBwQOF7JxH6KCR5bAB weX4qoMzwmpco pR2bH1ZkDCLlipzvCy10v D6zWdJoEeA6YRaqKke+U0 VQQHZGXuukVJKML2wlSYp IVR14Z2IfKjt5 ZOUglDwaGH7ktYOgNYctM c6hcKyhxGktJV7iPMLwgj svNRQisK2tNCNeyNLueLg cOV6yJKSqvqrr a500OhDwUEU7OBVpoUVoR 7QkiH8qGvAyBKLqANFsV3 IioSDzPOhkO207GSevRmV 4JAXlrzGsD1Pv PXKojJugZtK0v2B3Gf4gQ b1rJQ6nIQX2JK79UM43qW Byi8C1tEH7D1QgQEYmycp pbljrhEV1EVNs UMKsfH76qJHbEHwoDq2dv 0V8t041AFUvUXIymV83Zi 5dmVzcRMYbsWBCmS7rgap gg9chvkcnNkOi YHKnEYo9MBi4EGJsyHqwT yYxLOK4RhJ0ZMU0mRJihC 4kpMqedmsmwT6pRju+NjA tDSFnbqM7R8Se Dsd0WYXgxKueDV1zoUJgW DusNc0idOxmrLzaXA6yRH JrgirkBGKanS1oTHVwsYE sgLsmVP8aICCd gqzux984EqOcQNH0GWMsv ODuB9FuwM3tJwXePSPeAY SrJ2NhcOEdSKszG243NFc bNsU0LZKmtmRh H9GzTZQpaLmnUqF5s8T9K t4DVJpHIT35CU01oZNgo5 F0fTZ2E6ErSUIxpvahesw rgBW0WZYiNWJp iF83tTNoUFyuOt8fr7B7q 559WDDmGBKpxJ52Ez4feQ ssCVHukYLGsX5brkrea8k vcjogIzAwMDAw FVu6SZq3TRNqpOkvCmXaF JX0BnM5IQX6kLMlmY3cxV scsrrtxH4hXwc+R3D2P1D kPjwvdHI+PC90 GUEdIH84vRYvxXWyu4ylr Lk5WwLkJECoRZW5aBewKZ ypv6TsBYEhI34ndSJis4C 6IGNvbGxhcHNl UiZumEW5bZ5gSXnhgdhah 2zbsmnwCljil1qtnz44hI 31L78dTBhuCTJyQLEwDPQ cCNGrfXnqha7t uT4qQu1+UEBalQY0jLF6y Y3zTkYuQmM8SOteD875Nk UyuGBeJtcku7hrn3hwaGz 9IjIwJSIgdmFs rVxaRKW3p2UoRx20F31rY HdpZHRoPSIyMCUiIHZhbG auea0fwN9fFs6+IJ7pg1p dvl68xM12jTI+ TAPsKVA1kToxRTwvWKYqb N9kKGvmDnC8JBOmJtYunQ 80rZLcUBelOu5diXlewFl pDV4hLSWylopp v436StRxn6awCGJilHJbJ WktJWL0M12ok6G4QDXxIF FfJVQ9aRF8mI7adNbikua gbGVmdDsgdmVy kRujTMrpFLchR751FYLyl CbrRgAwcVRpT2hobmSJNN 1lOjwvdGQ+BJKyQVY4bFz lYOsdFRNrqC7p VMTaB2g5LdZeIiN3ROinT 5YihgJ5PRJwdNHzYUMpoG JDqL5lrrghr1pwuoowUcR iFCEbCWi7NFp6 AYYtpPjeEbLeWPS0UxP7I AI1nSFdlC4xaLikvdhoaP 9wOyc+RklOOjwvdGQ+PHR oVKY7mNbcKKui PGNljL7kLRAvM0t4JgRaC rK3HNpdD3BijvD2FIOrxN KoZCImbRXWeT9hopzdf9y vcjogIzAwMDAw UPv5NQx6KFTqoNepJuEwI OG3KiU8SVF2qBGjrO1yrV qujzrsmZ6pFbj+TVJOOjw vdGQ+PHRkIHN0 rEtoIPiqQXRtoB8eLSQuE 3u7EyYhTrL9BJjpW9Fuhw V9OTOfzVWwMCQhjUEOpH8 ijnlxu8lpvijy NuBkOIVqAIu3LEs3IYXmh QifDvNsOYE0PaY8YUX0jL AstC1ffOvqaiwylI6zYqt +RSK9GDB4MA78 YZ69C3YpJesnmAXknHM+P HRhYmxlIHdpZHRoPScxMD FeFlUbpDbaDK2sAk6zICT yLWNvbGxhcHNl OiB (more content not included)... [facility] Coding Summaryon 10-12-2024 Coding Summary HTMLBase 64 HglfgbtvDUk6aLj+PGhlY WQ+CX1TTGNvP50ifQVztR 9aK9XYGDgBIxjnEVXYTXa ZPpUwpjYrYU5ggTMlTGNo IC8+IC7zWYPxHcfysDIus 2V7hDR9S73jnf6gADmdjB C0BPOzHuGgitjnb1oleFx 6IDcuNmluOyBt TBYkgB97ZMO7nI78Uw52t YOrtHYtu6pckPe2QjQwFD WpBWQ2pJlpEVhpt6EjBAY fN69fxRXzu7P1 AIZqaTccaDMfMiOchZS9r Z9qOEotmloax4tqxgonBz u2us80bTRhy1F6rVC0Q3G uiuX8OKZbfTAm InhrqHVFvN9tkcvap1caa tjsTkScSJKwPJv5NXk7DE YofTseGdGmLM71EBS5ZUJ zjjHcG2SpHODp iXxuEkR8l2X3De3BM1PEA yyuV0HWFFSKVYfivCB+PC 68um79G1AwKfouDht7VYB eNRL0aKE8wW3o QIYrEWhnp5V5oXC2G6Uvr zZxek4hs6bjYHEpRMhbQ7 9glRZqa1V6TPIllZE7KAO xfGhrIkThzK50 Oyc+LNGgyQxdx8WkGmcgi 4ukk0iflDw8LikjFZOuzd RdwCjnGNI2e2OnZb1lPTP snDD2qVX8qZ0h BaJeOpH8SBkoB735CwNfq ONiYtifW49wH5GcyKS+PH UxAuu2XSXpsQzaIB0cU8G hZGRpbmctbGVm kNxoWA3nHYUnuwtxUXDwf I8lDKSbM5v6YsFgAlQ3IT kdT9EeZXUfckplLl89gI7 wHrJlZwF3NLlk F6MwfpY8ISXvkHXdMFfyS DP9L50oo2R0VCRmBCXvKA T5hMI2fM7suPoijizxoIS mdDsgdmVydGlj QPsxUFxmM429XIAirDozO kNvZGluZyBEYXRlOiAgMD EvMjQvMjAyNTwvdGQ+PHR pYLM7vDbxTXGh kBHuNKcoZr9jzNpvqEmuF M7nLCFlzmivDYXggF5dVF OmhOTdgSamKJ4kVNRhfko ic327LgUwKWE4 MAPvtKVlB2HeoY0uLtSlT WTiTJXhH4MpfFKpTZcyK8 33MCdhLaS1PGPeycVmR9E sLWFsaWduOiB0 j4R5Uo5Qx2XnesmnJ0Qyn ZVkLtYsJeurHMj9D2UfOk wvdHI+LD35OALqLZ44OGe 9JQU0wHubQFsg ZGWhW0RmrZ5eEjShZUEwD GRkOyc+PHRhYmxlIHdpZH RoPScxMDAlJyBzdHlsZT0 vGt8xOGTmVUXa pZbgnSDcMnXfv9zrBMUhU WngDS8tgHqvT8UwrED5NL Pnc8k1Tm43Z80nZ3SgaCX +VYPuaUW4xKS0 jD1hTaRtNwW2WAqkN003B pLfrNZoJhgur2pie4cxkL w2EeH7JIWxauAauUpuGWE 0n1NkPy31I26o IHdpZHRoPSIxNSUiIHZhb Tczym6acJ8hNy3+PGNvbC I3vHY8cU4mLyKwVdH9ZVl fV031OzDlhWOo Xjkkd0wlt2zriEy7IpSfB IJqkhUtaLncFKS7a6DvPp 32E5DpnDqsi5QjAyq2es8 9hOUhp4S4cWN0 L4FbBJNvdqyduJMwtRzgB G0jGJEmpdpxQHSokV9sUC CqY4v4YkGwPcO1ASaaA2W drqF6SAFhyHFs SHVeyURAlT2dcgrcx3szj xqaGbFuAZFaIWo6YRu0PG NmcZjkLpGuIPJ3IjO4YLY 0mBGwzE9ewBsf khuaeS1hTps+BWA5kLDlo YEUJV7aDfsmbMT+PHRkIH K6iRryQBabBWXqqB6eZFE lK2y8HhZbUmP6 EDpxX0JnpdI9YVMqmSQeN FObbXBNeL8ncmgqk2xrwb cjAqSsXFBwPKz6GGl4FPX saWduOiBsZWZ0 ZhH9PND7lMEuoC0coDxqt ewirE8eInq+QmlydGggRG O8XXp4A7LrKqb5KHUetPw tZX0jtCCkAEpz Nh9uqBuafRlbKS5eJGCsk oinv782NeFus2zhCNLzbQ XkOChrUEV2B01pt6N1TWS gXFDyGJH2kCW5 kR0yxZfiilvztMGfpOpes rFefAkgUSnhZMavL001UO BidVdbYtHdHTi7T7YpFfy 9DWEmzAacEX0v iIIsJQfoNp6maMimjQroP C8iYCWubigzx750MfRrr9 jnCNSteCZaGGfoWET1T98 vm4S6WJXjGSRo OYR2aPS8xT1hbJtjsdgeu GVmdDsgdmVydGljYWwtYW qkW023YSZitIpbSoQtaGk 4P2WxQfy0LVVw xWobMH2uhFKdEWlpMq1fz PlvpUdtWI0kEFQxaohwq7 35LlKvy2ldRUEmiXIyYWn sEWU1V78ng7Q8 WITlRPPcZKW1oCB1uT7da GlnbjogbGVmdDsgdmVydG eeOJgiNDfmO842BIMwiPx nPlBhdGllbnQg FCmrJSe5L8DrLeoabVC+P J97XWZfMN38lTVghMOyb6 jinTn2GwQjSWPwZJR6pSt jQFxby3AfQUIj V49alPQyl1C7YBKhoFcky DRjZnPwxDM5eZ6eOWjfuf sts0bgjyriFksbq8tzsi9 4eC66C61eRSox ZHRoPSIzMCUiIHZhbGlnb t0ruK6jZj8+OXBsyID5yS F9fQ0eZBZyRzX9EUkyS66 9InRvcCIvPjxj c0epd9jktZb1TbD7WQJuv sPdnUtmWGB5o2AuHw07Y0 9sIHdpZHRoPSIyMCUiIHZ pxMbjmr2slH5k Ii8+ISTviZT0xJQ6qZ5tZ yEcCgQ1WPgcP043RtQtrY IxVymcK47rH7WdyPH+PHR rLjz3ECXeaFap BX1kxWRyKReaGi1zBAC7P nYyVxBmYIkgX8UtOQLwyf dsrzlppJC1HYHjJRDrrC3 1Ys0xnSsoJZYh uBKHhY5ylnqzf5chhvjeZ iYvAQTiHCo7JSe8XDRqqR cpQhUoNUW4XaY5XUE7oJE hmZ8mdFrdouyc lJ4hT2ZiKGHkstmsWz73w K5qYzYyAsJ0PZegKid+U0 CLEHYHUmjkDXINC6lnKRy ALT10I8XdHvm3 FULgaHzoUN0utGJsJQywC x8bzKsudTelZB7qQBUmlc paQQVwbE6iVWJwtPKrvZo fHB9tBJCckpuq q637GwNtJLI0DOCtcGEtC 4AjsS2gXtOoJRZtICXeR2 GsuMRzDCdiX785FEuhNoZ 0DCNofeQgV4Ol VWHxbDtkAiA9l0D1Tc0tN q2eSC1yYBB2OD42DJ33jV Tyn1H8yWG0X0BmTJXmmzp grxbtfHG1UVOe KIGyyJ10qQDsWSfxIz3fk 0V3m727VIHdZDGjaV05Jv 0rgUsiVXThsSNTcT1bfgl lp8oqkgobZdYq QWOpWIt5BPz6ODIsvKivF jZpCKD6TxL7MJQ9eYXbwJ 8crXjajjrofQ7lBcl+NjA pJRSsbqN1W6Fo Gqk9NGYnfNouZJ9psUDzT HyqPc8coBsclElxWD9kNK FigzjfREYdtY8wHCMwdGX idQdtOP6pYPDx agosj040XjCzPYQ9UYAxg NZnV0YpyQ0kWqXkLXUtKT KfB4SzePAzXSgcU954CKn dDcO8WTDzwjOp R3VnTMVhhQkgMpW3x1E0E s6OJGyIDC41IS19rCPjo5 N4pRU2W3FqLZUozjpqviv anOU6NSDbCITr jD66uSRmJHxpIl1po7K2t 562AOOhGBCebO33Au3ozO tqJWDhuECGbA3uhisva9s vcjogIzAwMDAw WSp4XHs1BWHscIpnXdDaT NZ4JtJ2YZH4eSUarL6zpN mlcsccoV1pOrp+Z0D0Q6U kPjwvdHI+PC90 WGVrAP91cPExfQCyc9nyu Om2HaQpMIJoEQE5yXnqPM fzq1PzWCEgL24rwOKpb7D 6IGNvbGxhcHNl ObMfyXT5gL6jGEwbixpcj 6gxqejiAqbrf7vans50iI 35I70uGSahJYAnGERiNHJ sPMKeiDislx9q pG2iCq6+JZIscDK3lGX6y C9kSyMbYbK0VFhvX007Lq DgjEXiDrsmm5pzm9iceYu 9IjIwJSIgdmFs bYfuDSZ4k4JxDb93I05nB HdpZHRoPSIyMCUiIHZhbG sird7xjK9fDi6+OG0ax6r evw84mQ67bCI+ MGUqQUC6uXnlWBjtFGMfq X6wVUwvXzJ0JTDlDnOerK 00iQXkGSayEd5wqGlyzBe qGD6vXQXzeyet e063WfJtt2kbYVMzxFYfM ZfhALV6E36jv7V2PEMrOM ObLIH0zDK3oJ2quRqhapb gbGVmdDsgdmVy fDvxSAloCVroB960TTQbw KylPkExeYZwW9rirqKYLS 1lOjwvdGQ+VWMfFWG8qZa gNFteIKBoxK2b THTcI1e2PhApPtW1DZavC 9XqbqW1ZLXfkXSaNDUgyN CTnH4flbbna8trebcxRvF jUJRhPRp3HPl4 IKSsgWpgBgMlSMZ4ItW6P ZH6fCWltD5nnXijsnsglS 9wOyc+RklOOjwvdGQ+PHR mNMF4mKrcMWmy GBUhmQ1tTBJhP8f7IjJkB pI4TObjU7MgfiX9UJVqfO ZzSYYztGMGoX7gvdvlc9c vcjogIzAwMDAw CXm4AFx3VJYseFjuHeXvB LC4JlX9RBD2wXEyxP4xzB gtqbiavO0oRib+TVJOOjw vdGQ+PHRkIHN0 sEbaSBdfDJScbQ6sXSMqV 3i3RtKjCzB5OGneT4Sgzk B7TOJknMQoGWOnrGSQsK8 mbkplf3trpigo PgWwMOSuAVe2MZj5SAEky BbkPsLdWNN1ObX0CGM7xN XswL6juBoelxcxjC8iNeb +MRL4KSC1YN60 CU19X1HlOskqwPUviAP+P HRhYmxlIHdpZHRoPScxMD RsWhNsoJgoHB4uHr1pXCY yLWNvbGxhcHNl OiB (more content not included)... [facility] Wound Care Noteon 10-08-2024 Wound Care Note [phone] 1 [id number]#1 .00OTGTIFF [facility] Coding Summaryon 10-05-2024 Coding Summary HTMLBase 64 WcxmjghoDBd3dKq+PGhlY WQ+UT3FBQUzT29ubUXvcY 3iD4AYFNhGHzvhNFICQBh CPfPbiyFvHM5gpERdITTu IC8+XO5wUOUgVugynXRko 1B4mPZ0H47kji7lKRiarR T1IXPiXgEcoaqrr6qepSd 6IDcuNmluOyBt XGNvaL53UZV7xL24Ph86o YUjuCLer6nkcSb8ShEnSM CxQOJ4mAsaJRosg2BjRAX cY13tzFInf9J0 TNTkbSvhaMYfNxVvyNT9v C9cERblprbhe6ebmioiZz p5rh22eGCey3B0oGH6Q7X neuH2CQDsnULw OomgkKXPmJ3wkrkoc4vqz blgNcMvYEAgNMd2LTw7FE EemBqrKhGvDG42EGV3LFD yghEqE1CaEDIn fZjvFmO2b3D7Pv0MB5PWG driZ7QFJBZPJVqrhWR+PC 91fc61O3QdLvhvJub9WTP lLZG4rCD6nE5g GFVcODmxr1X0uNW3T8Jyl xShve2tt1zjACNwQOqgF6 0jqJYzu8B0ROSclBZ2FNM huQkqAhJzcV10 Oyc+ATEaoZlja5NuIcokw 8rml1hjyUp6AbfxTXNxdd XnjUeoKVK0g0ZyTl9eTAY viTI6eXO5eF3p DlBlRdZ6NQxmW674EnNtg IIjVepyL81jC0LcaGK+PH KlCoh2IMLcsFboKH4tO8M hZGRpbmctbGVm uVhcDK2iUUUohetrQRFay L9lMIRpJ8o0PlDyArE2JH gwG6TyOFWjvzclRk02qE7 jKvUhNdI4NQth X6GzknK7QSUbeUKsBDyoC VF3J52no4N2MZLrHZOvUU H0tHL2wM8pbLvdgzyaqCM mdDsgdmVydGlj LLviJTklG697HIVobJbhL kNvZGluZyBEYXRlOiAgMD EvMTcvMjAyNTwvdGQ+PHR uXEY8rFbtTWXv iTBhOGmwUa3ycJlqpZcsS R1hOTBteelqVRHipZ1gGA YalXQifHywSG7rGIYmyfy qs995CfVgXTJ8 MMAyfBEdS7ZvuO7lMeQsL FCzQZDdB5FibHXlDIldX6 55OZcpXwS7GKScvxQxC7P sLWFsaWduOiB0 k7H7Ye8Wq1OzweweJ7Caz JMmEkQtHypxZZi5I0UzKl wvdHI+PJ89CQLyLX59NZf 0QHC4aHwjWKtk PGJuI4CfyH3oWjIzZTEoW GRkOyc+PHRhYmxlIHdpZH RoPScxMDAlJyBzdHlsZT0 lTq6qTDNvKRIm sKbteXVoVhWku1azRCQnI ZuaIM7djFwwF5EgbKM1QQ Cos3k9Nw20X05xN1HjlUE +EXHqdGF7eNJ7 sK8xEuOgOuU8XWqjT807W mFflPBkZzbbg7wmi3fdpH p7VaB8NHClrlGtkByxOJO 9k8XqPq34H81v IHdpZHRoPSIxNSUiIHZhb Qehwz9wrT5yMg1+PGNvbC D3zUQ1rF1bQiZaCmX6HMn cA724MoHpxUEu Acwup2jxk5pobJb7HvWqA RIqxbExxMevKNN2q3MgKd 30W1SfrMhka5DnJov3tj5 4vHNgh5M6aIV2 O1SwGHTklzblpFJqxHgqE D3qTNCvmfzyACDmrC0lGV XoX5t8JyJuJfM2SIexV3N hhcY5QSFvjYNx OMXieKDHjX9ypyovi9tyi uamNwYxKBOfSBd8BYb9OG TyoLjeNsIiKOF3IlH4WHC 4rPKocV3wmIgr fpialT9uIkm+XPP2dHCzr VTWHE9pXeaasRI+PHRkIH G6xEfcXMdhTFKwpY1hEBJ uZ2g7CfSzIhO4 DPfaR8HpibN8LPRpbCBjJ QGjwTYIcT2vyrywl4gkix bfEiAjLVKkMGq3HXo2ZYK saWduOiBsZWZ0 BvH2CYF3wPEcaW3luWvlh dpjnW5lOav+QmlydGggRG W1UWq1Z5EeUvx2ZOGoeRs cSJ6hiSUeFWkw Cb9zmOrguQihJB2kZAZrm tkek795PuWwq2hoULUanF DqKQpkAAD7Y65xc7M6IIT pDZIjCGT7mUC1 nS1ecLzdgyihjNOixYzct zVvaGfzQDlbZPmgD754ON OwkYpyHoCmSEx9Y6KmLhq 2FOVpqXgzQM4u fVOgDUopIg3weKrmsJtdG S5eOTCenlwhv346WnDhh9 ogYXSodIMyMNipWUF7D77 zu4H8RWMrUHOy THE2iKP8kJ3mvGamchzzd GVmdDsgdmVydGljYWwtYW alJ498WDRkqHskFnBsjPz 0P6NyRkj1MUYp bNlfQY7shSBdZRglDp1et UehtQzoEQ3iZDUsbkvjz0 73IpRne5ilTWCmvUZgVFq gKFR6V95cf9S0 ENIlZQHaIXG6jOF3kU7vn GlnbjogbGVmdDsgdmVydG mtBEvkZYshT101MZQxqTa nPlBhdGllbnQg JJxcIPc6R7FjGwdrqXR+P K01STHnMH54wUYnqRZsv1 ekkXx0SgReSIFcCIR0aLo aLQfsc0IkHMDk E61znZBub6U7OERopXkzu XZgYcAtxBM5kA4wKRijfn ywq0kruoudOplma4dluo3 8aJ82C69vLVpr ZHRoPSIzMCUiIHZhbGlnb n3dbU8oPz3+UDWdjIE1bR P2lB3yGWZmEjQ7HUfiX81 9InRvcCIvPjxj h3pnj2yqcAq0KjI1DEZeu rHbbBxpLGU6h9TwXx78K3 9sIHdpZHRoPSIyMCUiIHZ ifByoqg0skA6x Ii8+FBJkgUP2sWH0dK5zJ xBkJzZ9LBykS128AnTmlC YzNezmM85lG9XpyOK+PHR hYmo4VLQxjMyg NB5fjBUuRQhaGg4gWLU9W xVkTnFvFKvtJ5JkPDSdti srvzyhqGJ5RFGhOPJwfW0 3Pj2myHldQHYp oQHSiH2slubdp2dzdvfyA zIaPGRnUGk7QHp0BZYxkF biOnSeFKG5LtJ0JWJ4pAY ltV6slVyoedme jM3bZ2FlQIXasfhbMe29d S4gXuUcXqM4EPapYwg+U0 IZGITNCjkfKLSTB7egLUt OMN45I6ZcCes3 SBWppNldZD5lfTAtFQkiQ d9tiWzmkAjhCE1aVJJhtt kdJNUljD1hYMIewAJbnVe sIN0hFIJpjdwp i233TxEkHVI2FRPblOIlS 3YkhY6dBaRzHJZgAKLlO4 OfaVXiONknK576JImhUtO 6LLAlmkDlU8Dc OYOwwEcmDtX6s3D8Qo2gH z8zER1fQBP9PG57ZR69kQ Hhb7U8nGC8V9EiBAHymgj wlddxsLL9FDDl GITakB29lFSrMGstQq9ob 8E3s509JEEwFKXuuG83Op 7sbNlhFVQmyVOVcI8fkgk eq1qxxbxkOyXj RLMpUSr8DTk9JOEuvChlI wYqYEI5MmY5PGN2vYUfbH 1dgGukexkmbL0yVpi+NjA wUJMqksI2Y3Dx Quq5NHZjvKmbHZ7vgPQbU EqwLr0qgVifeYldSN3jIH FyobpkOFWxiS6oZKGpgLD zdJcjZJ5bOFLm dqdez647ZjCxERB7LZGdl RSpO0GimY4rVhEkYXIcDT ZmI0JshZUjCYzdH062SDn fDjN2RHAgmjVg U8SkAPLpyCieGkG9j2S6R e4ZYKoTMT10XI51kGWex8 M3yUQ5L0WuEGTxwcfiqof sgKC5RVRnOKZu vT14qSTdYPirYz6pa9L3d 785TADtZXGgsC99Za5nuJ utKCOcnBBAdL1wvfqqi7p vcjogIzAwMDAw YEe9JDs2EOQohXlxUiZlI DB3TjZ9XIT1lLDbvB6niS lftquhwC2rVaj+E3Z2L7M kPjwvdHI+PC90 DJCrWV17vGQgtUFwc5cmn Oa2CzIcJSXlEJY4mZwpRE djo1KwJHDeK38neUKpv2F 6IGNvbGxhcHNl TsYxhZA2hF2mYTdrklazv 3rncolnDobdm4bpdr07lZ 60J10iRWubHSNvKKPrJVZ iCIQniUjlpc0n xI1oCm3+JSIipPI4nEN6d O4gRwOlTmR0IPttK427Hx StxVZcTuofu2zux2nciYz 9IjIwJSIgdmFs lTdlMQK3u5IqNi00R48fE HdpZHRoPSIyMCUiIHZhbG kedm3fyL2wHx8+XU8zl8s hat89dW24hUZ+ JYYjWRW7iNtoODnnOUNqu E8mVKzxGsE9XFZtMsObsM 52tNVbOArxXm2qtNbohZf tLO9pWJSxtzzu g932ImIqy8wuXAGdrFDaJ KfcSQO7D26bk1W7ZIFoCY MsUPS1qYL2eX8saUbfkxa gbGVmdDsgdmVy vZqfIHgdMJsoC737OYRuj SvwJfLlgCMlH6jylbVJMV 1lOjwvdGQ+LDXkSRT5pHn lJJroGMCjuB5n CNNeL4x4UxQzEcQ8TPqpP 1WstoE9LTHipXKsLCWhgO QYuT8tyvxbm4ndpfgpPiD mAQZdQNm6NVp2 ADBfjMxnKbWxVHE1BsP6I FB1vKRsdJ0jdZrdnwmkkD 9wOyc+RklOOjwvdGQ+PHR mNFP4vOgrSGzd ABQdkY5gTNBtH4o8TeLpX oG0LTzpY8HoptP0GESwuL EsDAMoiSTViT5aseznk9n vcjogIzAwMDAw PHp6VVj7MDCavZauJdYvA AT3BfC8PKK7dORwrN6mpD cmqmxgmP9vXec+TVJOOjw vdGQ+PHRkIHN0 sZvyEAtdDZKwlO2xKBUkI 3y3WiQhNlU2NFyqR8Pnva L0WNRadCHfGAGdiQFNjH5 dyphgm9gihjbo VnArJKPgPYy4EUd1ZJKwh YpmUzHuOUQ0VnI9PJQ8nB ThtA2yrJbnmlvecK9oVrk +HGN6RAD6QT01 AE42X1RgTxegnMImhZE+P HRhYmxlIHdpZHRoPScxMD WcJvEyjClqIA9xHv1kXVD yLWNvbGxhcHNl OiB (more content not included)... [facility] Wound Care Noteon 09-28-2024 Wound Care Note [id number]#1 .[email or web address] [facility] Coding Summaryon 09-10-2024 Coding Summary HTMLBase 64 PffcciejQIk0aJh+PGhlY WQ+DC5FWBLfD90reZShmU 5uS0NLZNwBTidnSFFARTh LGoFrptGoJD6fvYWhVEDf IC8+AP5qHEJxKwtjeDPdr 7R1vPN6N39ccw6wNTdedC Y8HYQwMjMnbybus7uytFq 6IDcuNmluOyBt HGIfmT05QPV0xR56Fy42v CVlcDIdx3uzkOd6SzDpQM OsMHI3sTvnXOkdc3IxSSB jT89ldVAqp8N8 UFCvxWrqtEWdZnWyrLM3w R4fOKxzitvde7hapfurUw t0wu33uGZhj6R0uUV7K9Y tmcQ7TVSrfIIs JlhgfBGHtN6ofpziz8ubv kqsKfYmJEBkHCx6HTj8BJ OzcPxiCkJmZO50LLL8NPF omxCrQ1KbTBEj dRhnXnZ8g9T8Hr5ZD9ZNL xvdC4OPRIFOIKbjhUB+PC 07xa89O8BuXhfgLzh1TZB iYVV7jHK3zV9h XNMwUQdpn1R7tHC6P3Zeo hFcck6ly1tmCEGpWYmdZ5 5ntHCpp1V9OXZwyEM0GQA ceGkoNcSofH30 Oyc+JSUckGrlu6ZnNfyvm 6qlt3fdrGp0LjinUDXtqq ImzPjvKYI5y3AyMx5rKWY bhAQ9oOH0jG9s EuXdEwJ3HXqrN006RcBpf GEoZtaoP82dG5FhxIN+PH LqCvd8JSZjzOsqJY1iW8X hZGRpbmctbGVm xOfdDC4dLGJopczfDGSzy H6pYLPeI7j8TcTsOlF3XI rjJ0OgNJPgvhttZc30fJ5 fTxGhOpK7TLtl C2CdleU6FEIurWKmDNbzM IM9Y45tc7R1HIRaNJPqJZ X4lPF9qZ3ygGeccndduMG mdDsgdmVydGlj RFldBIleQ950TNVwcZybL kNvZGluZyBEYXRlOiAgMT IvMjMvMjAyNDwvdGQ+PHR kIAM9jKolCXPw fTFaADspBi3nqSpiqQfxI V1qXEWitljgURRabX4bMV NmjAPrnAkeBF4vITWfucw tm438UmZvYKI9 XAIoiIBhY6RbzM5jZsIvV BRdRZBbV8FtaZHuZNzfB7 70MMsiCeP6DZEqldAfC9Z sLWFsaWduOiB0 l5C7Wu4Ie6KhwxrfH8Vyn CYaRyPrRjrbWPn6J8DmYb wvdHI+YE37BAIoVW58ESe 3FNU7eUywYPwo IWKxU4EgzV1nEfJeEYAjU GRkOyc+PHRhYmxlIHdpZH RoPScxMDAlJyBzdHlsZT0 uGb0yVRLmUPDx uMabdYJlUbDgu3ykSQQtH GyzBX4fyTyiD8HlqWC6XE Mep1r4Yr75Z94mO0TcwOD +NBOfrMD6qVW9 gM6lHlXsGaO9HSxjP580Q uJpkHPbYxppn0jkb5mekI c6KhD6PUWgcoDrhFyvPXA 3e7CsGm27I68m IHdpZHRoPSIxNSUiIHZhb Psltb8ttK2jYi3+PGNvbC S7wJH6jU6jCtTyCwC4GAs wH582OfNuqLHi Hthkx8adc4vunMh3DhJoU DLhtfYhaWtpFCU6a2ThGp 61P2OcvXbbk5GfDjc4zk8 7tKZbe6J1uYK9 N9WlVOQuajavzOKlyUmqH E3xWHMfktcoUCPqxJ8dGH ZlJ4h7AuIqLhD6NBfzI5J uwtV6UZRvbJSu BMYhrALLxO2nehrrq9lph aqwJgBlOYSqJHw5ZSc0FJ EuoLroYnNyPPK5XrP4EFU 9mOEwbP6olRax wmrasY6gDst+ZOQ5yFKzv DRFKM8eLgoflHP+PHRkIH P1qJdxEOlpADAmcL3bDHB xV3g1PhQvHiO5 IHakM1YzbqM6EKPhyTNgH HPbkLEYcR2cnihvg8npcc veLfIpTZUaEKy4RUl2BOD saWduOiBsZWZ0 HuN6HAR2mLLsyU5bcRngi uoahI2yIwa+QmlydGggRG Z0DVk5H9TlXse9UKKonOi gWS2ssGMaNRgc Fh5vfXynhArsYI2hVRNaf jwld820MhClb4rqWNWcsQ ThAPnvZSV1E01pm1U4MEW iUZPeOFB5kWY0 oM4neAjmcnellBVuvUfgf bEniBqwEQkbIEthP116UX LwvJtaWqLrKGj2D6FdKpx 8VLBvlEwnEL7v pUKlBBivCk9xbXsbnRtrD Q6xNFJpdjtec669VvMan8 cpABIjrYPdDSauJJB9J93 fq1H4WKKpRCGo TCD3fJN5tN2giSivgfzbw GVmdDsgdmVydGljYWwtYW skG855FGCciLgwFyUctIg 0J3UyElc9CAAa lMhfSW2hpDBdFVdeZk1sg BwrmItqYA5mBIMkebesy2 12KsKzh2mcRNEdgFFaWFq mNAZ3F39hf3J9 NDBgIICiYSF4tTD1gU3sx GlnbjogbGVmdDsgdmVydG mbFFcfDAulC208QBAfuAp nPlBhdGllbnQg VTamLQd9G6NrVtgrdMA+P Q15VVThLN50kVPsnPMft7 oobPk4NnSmRRGuOEN5gHr cLMdwm6FmBZQe K37jeWDhr0F4MZYaiJlax VNmIrExdOE1bG1yLFuraf nhc4kirweoVrxsl1wgcy2 7rI16Z36dQEup ZHRoPSIzMCUiIHZhbGlnb k2bnJ3mGn8+QXGwfQC9iC T2kZ3rIJRdNuG5RAipR77 9InRvcCIvPjxj t1ida2vgkBu1VzW1MXKsv cHqnUzoWOS0k2RcWs90A4 9sIHdpZHRoPSIyMCUiIHZ ioVzuao5rxD7v Ii8+RYIfbYA5vGF0nM4oH iWzXnL0VBcwD998GtXpiE FrJkojW36mO0HxsJF+PHR gSzz3RNYlzRgr XS4efMTtPFjzPa5zEHY2Y gQlIeOuVZlvK1MpJSLjoc wichukuNX6XAOhNWPdeQ8 9Sz3spQetEYHc cGNViC7cobuji0ozggllM hRnIJYkYOw8AJq6LGNgsT czJmMmRZT8MdK0VBV7iUE stK6oeNmkjyoa wN4oK1OvMYOpcfiwOm65m F5yUoQiVuK0XTnkNam+U0 QVTKCWLvjyQSRPA5evDJq ULK47S9UeVgt5 SZLupSbqGP9yoDRhKOadN c4jyJdqtRfyFM6bULGwlu muLWHajF8oXWFozTJqqGt lZP7sBYXysjaj a857XbRnRMH7LFEaxWLmP 6EqnS2lFkRdMIJuGVWnF9 CrmWAgXZtdN445RIsyAvM 3TQCscbObX9Tu HTOwzOvvOlJ5j2P8Qz7wX q6pNC4vHAM1XD09PY72fB Xwj9Y0cKT1Z5CwCRTmaow lcqccnZU8PMFz VMCxlG01xGFrGPdtJi8dg 8X6g536FOCbNNTuzQ12Hw 9duBogUYAobPSFrF8xitl jg6algbbuQyUs ADVeAIx2TQu7ZGAunBqsS cEvLYG1ObO6SQI5sQPucH 1ytVoglrgoaE9pBeg+NTk sHUHbhwM0I7Rf Ftl9WXGfjVjvPS4vkPAzY TmcPm8wcXowmQsvFS2lNQ FddxdpOVZpoK7gBMOpyMY olIcaRJ9hHVQw adxok261UgKuODW4VSLea OYmE9QahG5fRlVdQMRrSO FdC2LvoSOqGOqtD436GKm iZtL0XKKachNw C9HwFBYffArxSfD9x7B7H m5TOVlDFU72TP40fACql2 K1dYF9K5RfHKStebvccvz jqFG1IIBxMWIs oE71nFTcFBwrAq0np5A9j 439TWQiWORywO13My7meY baARVouNHOpO3fpuhsj1o vcjogIzAwMDAw DBw2UFp6NKZtkKxkOaQmB AQ2ZkF3WCV6wSEixN7zcU yojbutjK0tSqk+P1O8Q2W kPjwvdHI+PC90 GEZqTI16eBRtcNNut5bjo Ep3NzJfJSHkKCK0hWkhBG tfc5PjDNPeH19vkHWob1E 6IGNvbGxhcHNl ZtQwiKE7nE9pCQnvvfkzm 1kjdfogFewdp3ubhk71yR 60H35zGUfhBGEkGKUnYPS xISIeaHjucv2j sC3vAp5+XGPboRT9fPN3o L9oRtBvHlF7ULttH802Fr DtuLVjHzngn5nys8kuiFf 9IjIwJSIgdmFs fGtmIIK1t1TtQn49E14oO HdpZHRoPSIyMCUiIHZhbG sbgv5zkC0xLr6+AG2oc7r svc07dF34iJI+ WGMhFVY6pKpeSChfPIOsq K5zTVqbFyO1PJCpWkOoeM 93tEFzPRydDi1evXdvxTc sQG2nWNPvajmv f748BxCtj1hvYGLbzUAqU TeoBGC9C15uo0C5MYTfET GvVRK9bDX2jF1bfUnquzo gbGVmdDsgdmVy xMbaFAuhJKteU381CWWpc CquCpDkfBTkU5ubreJACX 1lOjwvdGQ+AHImZBI2aGw gOSmkBSJuyA5s IFGiQ9h4PgOaGaM9EGxrG 3MrliC5CGFbvDJwFAZtcK STnZ0eefojg2frfgjpRpS oZKCdCLm9YNz7 SUNnrEetOwNmWRD9JgT4J ET5kWOdkF8imUkseaombX 9wOyc+RklOOjwvdGQ+PHR uDYN4sJgjNAyr SPUlnG0lXBMyJ6t6MfKgE hV1ASfrF7UjbbI8NAStjK IrTIHpdARMtW8kzefkc9m vcjogIzAwMDAw SYm4GAe8NUTcwTqfDlGoW SV3XjZ2VYL5bVSpvQ2cjC ueeoofqO3pLdr+TVJOOjw vdGQ+PHRkIHN0 mDsvTGmhHPQvgX2kUCWlG 8n3AvXbFuR2QUxfM3Rjgf Z5LUNxfWAwQLTwrZOWbJ9 jqyybo0mekjgk UkMvAVWvLQj9EUd2MFAch JsiFmGpMPE4SbU2JLW8jS TqlL9qvNbliqnjlY1sXjx +HXX3WMS4QS42 TF03C4JzIaqdjMZxrQW+P HRhYmxlIHdpZHRoPScxMD SxWrCecXbmGA0dKq9sVNK yLWNvbGxhcHNl OiB (more content not included)... [facility] Wound Care Noteon 09-10-2024 Wound Care Note [id number]#1 .00OTGTIFF [facility] Coding Summaryon 08-31-2024 Coding Summary HTMLBase 64 WkemtiqlAWu2pBa+PGhlY WQ+DW7RRSHnC01szJRmbS 3aO2NFEOwMRtfnVMNVSCs WNpPunoKoTR8nuCNmAGNh IC8+JY2rBKBvVftxzCSri 4E5jFA8K70ppa6pXFflwJ A4YIMoGnXuvdvem7pvwJs 6IDcuNmluOyBt IYVwtP91QXR2qX13Ar47w RUygTJlw2hqfHu8VzBtGG FzKKN3gHkmGTiyy5OeMTM vH85rqNNhk3D6 DNKatQxkrPKsTkNnkWN6x X3aSTjwrymha2aayroaLm t3kv24oPXoh8Y4jCO8N4M vwfC8PQOldTVe SowdmZJDrB7ztovvc3pzl jhjZbXvXDArKLb0XWy4VI MjvLuoPgRwEI53TZK8VQF jgqWvR1JoJNHz wGkpRpI5w6W6Mv8EO6TCW hbsD8AATPZGLLogkEA+PC 56vg98Z1XaFaucVuk0AZC nLIY4kWP9nI8l QZVeNAaca0S4gGP9S2Dib kJcdb2uh3klTAGxKOxmZ8 2bsDNul7A5TFSzlLK9IMW bmVnhBuWikS41 Oyc+GYCfoDzxu7ZmUefva 7ron3kwnYq9OcplPYMfyy BxxYxpQFP5g7CmIe1nGJH ktCB9lQC4eA3e XzLqMyY3PBpoG141GiTlr QClTnvcU79kT9TcqMK+PH SnTdv8LDHefLpeHP5oJ4P hZGRpbmctbGVm cMxrLB7zJDIgmdveMRZve T0lPIZzO3p5CmYdSdN5XJ gdS3NtFMKnzelfKu48mK3 kVyTdYkB1HOig A1BcznP5KUPxdCWcKYspS BK3G72lu8N7MYBqZYUeWL S0yXD9wO3mjScgezxgaQS mdDsgdmVydGlj GPqwMTnbY499LKLxoLlfU kNvZGluZyBEYXRlOiAgMT IvMTMvMjAyNDwvdGQ+PHR oFNC9oJhyFYLr dXVkNHyjSm0jcMtjqDizS C8hYXJdhnkpHFBtfP7zOY UqkFKrdIbqDB0qZNPfmoa mu068OqVuXNN3 LUBhwGJtS5YlfV3aQqPeP HYjVAGhI4XnjRViNYuaO9 68IJoqKvV7FCIkgzIuB4N sLWFsaWduOiB0 a3E1Uc8Rf6TzikwbF6Apm JUzIuXaJpmmOBu5N7EcYo wvdHI+XJ10SOCdFR22OIk 5ZLD0xDxuCVwj FGPyE8AxoW3fMfCqKYAaI GRkOyc+PHRhYmxlIHdpZH RoPScxMDAlJyBzdHlsZT0 uBd7uSEVvIMRn cJgloIZtGaQal3kiPIPhK JwzGA7dsUeqV8NkzGA2JU Zka5d6Nk16O31hN1NzkHL +XLExkIR5mUT2 pO7rEyJiGjQ5DMauA864E cRtpOBhYkkgi3obf3efoL g0XzR1IHBcnlCroKtcATB 8g8EyEd48B25k IHdpZHRoPSIxNSUiIHZhb Bosia4pmD3qEt3+PGNvbC M3uYC9pU5vIiNkGdK9PHx tF083InKeuXVh Frxbt2fgp0llfRo8EsTvK BTkvpLspAyqCKP9b1NiVi 17E4YfbIdgp2XfUco2ke2 2eBRmk4D7vRG9 N8CmGXJbqvqxkWBatBmxE E2yTSFwunspNAZvcD8vXJ XnM0a4IaMrSxY8PCtxC6W qpeQ3IRMvkPXl BQZthEKDeZ3rbdakx1seb mgqKcTyIAVaTVb4WNg2PA HyyWjhKnGlIZK0GsL2TCG 0sWAkcF8nzRqk fcasyH1uFvi+FUK4wPKcg YDRKZ2qCngnxHT+PHRkIH O7uAjcXOuaKBUcoK5vEYM pR8p5SyLfJlX5 VHzhJ2XzwiF3AMJmaEXjV HVjiROZkZ1qqqruv9akpl jlGaHtULVuPAg8YXy5VGG saWduOiBsZWZ0 AbJ4UMS9sGLxbA1lzRdla slglT7oNgn+QmlydGggRG G2MTq0L3GlZco0QPHvjHf wPN9dwIZuPWzr Bf6wuXxddJwvJI4kGEKgp rckg408RkCfw3ypFVCbaL QzQFbsNRZ6P70zx9J8GQW dIKPnWKK4aSY1 zD1znXyrdgpbvINlyIwgw rBguGogMEjqQIsnD141JM IdxKlzUvQxIFy2K6BtQxm 0ZZZngLwgGK7i wEAdLTfyId9omSvmaPdqE S3tMBUquuflb752YlZxo1 ddUBOblOCqAXbgUEH0K12 pg0X7RNDgJUJu AYR1iBD0bN1jhDaokdzgi GVmdDsgdmVydGljYWwtYW ibE874HOTytIxoMbTdhFq 8Y7InTrw2BXZe yJgvOF8nfHPzOMbqPg6gz QxiiCikCS7fXMQhadsji9 98LyZqp3zmHNFneDZiFPf cVMM1C96tm5X5 EOTyDILiFPS4qHD2aL2gd GlnbjogbGVmdDsgdmVydG vxJHgmDLudQ293XUEtsGy nPlBhdGllbnQg ZRndPYi8R7MqUnputHH+P C47TFCdHK32uRYtgQGvr5 aswQs8SxZfNWGpCLR2tOd lEGjga4UuZDGc D96mnUSgj9B6GRTwvQdhm UQbWdRqiDJ5nU1hUEhshn dty3wopgmmPymgj1iohk5 8iL67M70aDKyf ZHRoPSIzMCUiIHZhbGlnb n4euD1bLq6+YASbnSH3zQ S0gW0oXJWrMwN2ETyqS42 9InRvcCIvPjxj m7iey0ntuBl0PiC0JNRhk sMdwQgbMKI0g0DyZm37J3 9sIHdpZHRoPSIyMCUiIHZ lmYudwx5fwN4x Ii8+CGOjpAW6aWE6aP1eR aXuMyC4PChzV375AeGvtQ JjSqeyX75xJ8XoqFO+PHR hFhc5CVWxqYhg II8azPBjMJooNk9wEFT9M nOrBxKbOJcuY7NxLHGgtw cipyxehCN3LOYcQVNcsB2 4Vv5hzOskMEIb wSCVaZ9jhzqwx3rkudabN sYwVSMjUNm1WOp7URDscX paZpErMOO4OzN8ZJZ2jIT mwU1djBaegfcw vH4kE2GoRLYbjjnxWu18c M1nNuJkPkW4CCxvMiz+U0 MPBYUZSytgYCOQE9czDSl WPK14M0OzTci6 KVWjzVkbCL5qjBLgTTykG u1mkBshxAhsIJ5yTVGovi lvQNOtcJ8iWKBjnCCpqZi aQL4hTSOiujaq m582KnGuHHA0JKWewMNcM 4BdtN9wAaZiQWFeLHPnZ7 RbhGYyRRyiZ958GTdoRzB 9BVTzkySvX5Ve PRWcbPwyMlU6m8G1Cc5iZ k8uOS3sGYF7WR80HC64bH Rgm8O7nGM9G0TjWKGuzmq przvmkAF4JBHe SLVplW15sTLgQHboLr7gh 0M7g836RMVdZNFuaN21Ol 7gyIhrDVOhdJYYgS1fqhg mp2mwaethQpCx UPRtAPm1JPs0BNQfkNfkA oOyOPF8XaW2HWW6nBJdaC 2viEujnxhdtZ8vLpv+NTk yZGSrxnI6V8Ci Dpc6ZRWpoWopVR6bpUHjP KjzSy5loQhtqHidPG3gFH ToznnnEGGhbW3aSKXuePG jsUcfEA9lCERu okjvx612PwEyUYW2HWJey TDdM7CnxV7zNjPqWKGfQC PnL4PjyYWkOJjtX991AQg cXdB0HWKelwHs Q8XbSZUktAwhDwT3p9X5P p4LMEzGQV93UW57kNVak6 L1hCN5Q3SpJEEhtumlsbv ywJV8ITUdIPMi qZ57zHPaXQghGk7yb1K1w 702GSOjFOTogO65Dn8udS zoVNEebOKXpW8aesrjm9t vcjogIzAwMDAw XOe0HVq0BIFroOktLtPkS UF8GrM1SNT0bNKatZ5dyA cwwyuyvO9zFbi+F2X3K5P kPjwvdHI+PC90 AFUbCX36eAOkdUJcb8mlf Qz4AgHkCYLrPYC4gXuyUM iyd1RpCHHfD72tlRUki8K 6IGNvbGxhcHNl JnFpjIO8fJ2kRExyceenq 0debpljLjlez3nuzp21wR 24X91kRXgiMBGaSJEmJKP oWBJcjBhnag7k fB1tEa6+PAEpvDG2aNX3x L5oKuYjDeQ4TDbpK538Xj PdvBHfGkwgk3xil6ybdUz 9IjIwJSIgdmFs hRfhKRR2g5XsTl36C77jH HdpZHRoPSIyMCUiIHZhbG tgwb9mgK2pNs6+LO4wo5n gtp42pA40hDJ+ XXZrNQL2pFidOZaiYWZpq N0jRFhcUcT4WLWvGdMucE 27aTYwHFkfXz8kyEivmSz mOC9cZKWncwin z018DzTcd5deNBSxvKSiM SeeFGU3E88uy5R4GUPvLF BgKSY8gVG2vI8rwVhkfcm gbGVmdDsgdmVy cQxoONzsTNkiJ477IRPnw MykGpMswEBtF9dmwpKTGE 1lOjwvdGQ+TRIiLTO5hAc sKRjzVNXfmC2h BKAyJ9q2TgBrJzS0HRuaU 2BoluR9EFOqsVMuBWYkkM BKxO3odklrv5zbbvjaHdY jPOGwOTn7DGv5 EAElnMocQmBoVRN8VhS2S KM9cJRxjF5vpVatckcrbQ 9wOyc+RklOOjwvdGQ+PHR sNYT3uZtsKFym IALvcM4dKJRlP0o7CiUqO tB9LSkqL7MobmO9TKQeqQ OoCXGenPRQvX3hljwcy0d vcjogIzAwMDAw XIg3TFo3QSFqqBdzSuQsI DB3IeO6UEO7gGFhaG8phQ cupsqmiY1fTqk+TVJOOjw vdGQ+PHRkIHN0 jAcoLWwtSCThxD3xPGQjY 7f0PiPnNcY8HUcrY2Pzbo K9VYZocHZtFJGwsBNXbK6 leuvna7qiqcwn MpUyDMDjDDs4DWo2USAny IhgWmSqEIH3YpU8ZVQ9lU NydE1fkWbyfglhoS9cNdx +ADP8RBZ0PE32 MF37S9DjGhwbsNIkqGM+P HRhYmxlIHdpZHRoPScxMD QmTmZuqDkjQO9oNj1oEMY yLWNvbGxhcHNl OiB (more content not included)... [facility] Wound Care Noteon 08-24-2024 Wound Care Note [id number]#1. 00OTGTIFF [facility] Coding Summaryon 08-23-2024 Coding Summary HTMLBase 64 KidqajuaZJj2sEn+PGhlY WQ+JK2UFPZxN51dhZIvaE 4wG5CYWQgSFshiSQDSNIq JNhRwthSyIU7krSJhKHKs IC8+NC9cLXKyXedfjCXmo 8Y3qSN7R56nrf4iOHtbrR I7ANUbSaCmgdsjn3ievIy 6IDcuNmluOyBt RNJfcW69SRO1qV15Oo70c QPtdDJlr9nnqQd1TaXyJI BcFSN7hKhwUZngx0GzTDT dS06ouCSrj9B7 KTNnjNqxhPUwLeQigOM8m N5xUAeyedhps3yjafloLw q7lt85kQZmi9H6bOL2V5G avoA0KWOdlWLf VwijfAKJcJ1abqqla7klw cvkReGnCSViHQi5YBq5ZQ MtpRdfXjZoEX97KSO5TIF lhcVmA0HaKMUs uAqpCvS5p4B8Ny6ZG9WJN mshU8FFBBCKUViduKP+PC 08pa40Q7AvBkscAee5KFM fEUH3cTL7vI5f GKJfBOpfx3B4xQC6I9Lby xUrrz8rc8qvJMQpRVkjM1 6vjILbr0R4RIWhzSX4IGY eoGlkLbZuzU56 Oyc+WYBpiPeet4XcSpetj 8ibb6ziuEe6RdoeCREgyg LvxSocLMR5m4OxCt4iEHT ryOK9mVF6kI7h KtNhKmN5BYakT019FlDhe IXvNqrcH82eA6YkpLT+PH TmTcc8DIJtzEpzTE2hR8R hZGRpbmctbGVm uEttWZ0uWHHlejyjYVHye E0xPPTyM6o2LdDfGwJ1SY jwG3YdLAHxexgdJh49uF0 lXzLjRjQ9BOwm Z3MtybL0TWEbsWKnFZakN GQ8O57ng1V1YIKiURNrOM C2bMC0zP1zmYqexxbwuJG mdDsgdmVydGlj DIviVRbmI612AHPlqPsyL kNvZGluZyBEYXRlOiAgMT IvMDUvMjAyNDwvdGQ+PHR eFUZ4yQbzHCAr xPBsOPdwSb1xoXkljCaiV Y8iUAFqiggaGSUfmI8kCV ZsmUXckHkoCM8nSTXbypk ql001ZeNmDZZ6 RUFmpHTaO0YohK4rGcNfE PVqGTIcU3DpuVVxPMkrU7 68LTphNnB6AIKsazRcR5Z sLWFsaWduOiB0 a6W6Tv4Id0ZvxjfkM7Bpk DGzPsCdUillOWx4X1YmVf wvdHI+FB99ONEmYU53PUk 6EPY6dUtfOUlc UDArZ4PjqL9nFnZpCDFjM GRkOyc+PHRhYmxlIHdpZH RoPScxMDAlJyBzdHlsZT0 iNk2zIXInITCf bNnqwAMfTbAkm8itLWCoW MkhVZ2lxFjfW8TrwAJ0UZ Nod6b8Ye72G15nW2OacVM +EXKkrZE2eBO8 nB2zYqOjVjC8OXknS274K cCyfMUyHbrkl3gyj8hbyZ h9OdM8NZJhteUpjTbmNZP 6h4QtFa87F40j IHdpZHRoPSIxNSUiIHZhb Tioon7dwY9jQf2+PGNvbC A6aQC8mV5nFfIvMcS5CYz hG093PaFceTZh Kmrha6yll3cjiGk1KqVeT TYuhkHlfJvuZME3u5VjWs 30P7VcyVqcf8OrUcg0ww3 4pWIfj3Z6pGE7 C9UdIZNcvwvpcHOlwTdrQ R8wQLPjsdvfAJGvpO4lLF NjT5h9MwLrWgD3PWopU5H pbkL9GXSzfMDp FYEjeKKQoY8bkedbo4ttk dnpItPtIOVkYSc4BBq4NT WxbAheCvDtJAP5PwP9JFN 9bPNjdE4srObu axojeF3nVfe+CCN0rADes NGLMG3lMiopwMN+PHRkIH Y8fAktPNzgASLhsS5qXLR oN0k1TyBiPiS4 BKbwL8ZgukC9NBWgnRXbH HUfqMVSsV0ycldct4mkbr zzNnTlZWHeIIl8FQc7KSR saWduOiBsZWZ0 XmN6KHA5cHTfiP6xyNiae jhomU7hGga+QmlydGggRG C2QDd6A4UfUtv0DZZsuYp dBG2dePKnCMed Oe3hlLgzoZkqQW3bDOKot pdvz233TyXph1chNXLcmP KtEWauDVR3K45xx1U3FFL cSLAtJCU8iCD2 wJ1wwOxbflifoJEypQrbm oRwkHmtLRhvLFqmF778KM XjaTvsDoGlYJk3B5ObFrd 3JQDlsYksGT6m cGEjFXyoGl2mnSwutOoiL X2qEQZlxgykz697VnWup0 soKVFqlYNhCDhaDOK3M68 nk7Z0IDGpPUXh ZFA6tRM8hC3jtEltmiawd GVmdDsgdmVydGljYWwtYW kjQ483LVYliVfsKaTpaHl 4V8KbCha1TOWl yFovCK3rjJPzRYtySy5es PggjWpdFV3wVEYdwbmho2 30DcUrz7ozGEOfpDWiXNk tEAS6O56cy0E4 NLPjPCSuCRK9lUL5tU3yu GlnbjogbGVmdDsgdmVydG bfYAuzXNcvW551VALcpTm nPlBhdGllbnQg UIvsSHh0S4VsMctwwTA+P A80BXAwSN59mBVzfZUhc1 arzSw4XiSjYTZbXAS9fMc sTXkaa4BmSFVk G73tfAGde7Y8BXQfnOskg FGrWeCffTP1fP7zCBobiz xop5smaezyPxydy8pnev0 3wR48Q11hXTrd ZHRoPSIzMCUiIHZhbGlnb a5faS0mTy8+SNLvrXR6rY O0oV5mFVSeMeB4QRvgH67 9InRvcCIvPjxj o3wws1btiMd2YvW1FMTlm hXitDakBRP3r8UoZa66F0 9sIHdpZHRoPSIyMCUiIHZ mtVjvwd7qcP4u Ii8+HBCucXG6oVE5yB0bX hTcJeH0ZOqqT045KcQcoY EoXumaV86fF2AbrYM+PHR tKro2HSCemQjp UX7yeBCpYNatVq7wBBW6R pGsSyFjKSthS2MiRQXkjp uzdeeokUM0DVScTSDgfX4 3Ly8yjFxeCASc wFJOiL4dkibuj0cqkdvfU iWmDXOfCIi5IOm5ZLObgI hzVxRsOBB9CqJ5CBK9mJC moT7auCvcxblq dJ7cC1HeLUKuavovDk67a S0cUnEuZtK4EKnaOpg+U0 OKCHOMZpibHYQWD6leIIv LOZ17X3ZeJep4 KQYtxHesPZ8snEVzAOmdA b5iyDoebAcoFA8nQEBcyt grPYOpwF5aGISbxPFrjTz gBJ4rCBQlwnga p344ThDiOYK9QZVxfDKcD 8VhsP8iBhSaTIBrRUAwB6 GnoXApFGnqL119SHjxHfL 7BBHwowImE7Hm KCXyzBahEdH6q8M8Sz3nL w0vDV0dFON3KT14IX05fG Fcn8D4gEV2H2GtQXQjwzh tffqyaFU9AFUh IGUdnZ91gACmDGvpNu7gx 6N2o243GYRbMECiyN93Vb 3jeKjyQVOybPRIjZ1aqrq fs2mgroflXqBg PTPpCQs7XEj8DTRbtCgmS xViHIV4SlW6SBA4kFUauP 1drFtvorvgmP3dTij+NTk oZTRepkI9F3Va Wmq1QCMmuSfuBL0jiVHeB GlxUs4gwUcvyTupZL7qVL GqhvscBVBhoK3dVLTuoOB kpDqqKU4vPVWv xhkth019FwOnBZG3XUBtf NFxG3AopX8cTmOzABJcCQ ZxJ5XtaBDrKNlmH664SXv xDpV0DXDdhcMq R2AvFRQspUkgMpF8d3B9E f0TNIjRFZ04VB16zPDzs1 V6wSU7G9OvLDTsgqtkpbv gdMD0AXYtRCCv uZ96jWTeGKowMc2st5Z8f 197RLXhOHVcpE28Or3tkK wiSZUdgFMGlO2wrnpyi0t vcjogIzAwMDAw LWd9IBd1UJDvrObiGfHyG OP5BtP6UFA5oRHgiR3xsF wydxemfO8iWaf+B2I9Y0X kPjwvdHI+PC90 RVPnRI14zAAhxHPdx8ysk Jk2GqFgGVAaNOG8bWuvTA dlk9AgKUXgU58qxOMfi4N 6IGNvbGxhcHNl CrFxhIY6iA1aNNgjcmtrf 5ncxwwyIfnlf3bfwm71nT 52M36sVRavDMScDKYaAEH zISUwjPvcnk4w lV0dWa5+FTPzoVM1nOW8f Y6jMyCnMmB7LPuxI500Oy VgwDYeOsjxa3qdk4klgIn 9IjIwJSIgdmFs xTdmKJD2j1ObLf55S74xZ HdpZHRoPSIyMCUiIHZhbG xvxp1hcC2jNk2+TC3ff2t eyr56zV43wEN+ QKTpQXL3vKhuPAwmLOUbk G8kCBizUyJ2YBNbZgFltJ 29sUGzJLlcLb8nvUrjbVn sOR8mWPHrzfwn i953KnYmb0akWKEfiDSyG AlcZKV5U43hp1D9NKZyVC HpGEE5cIG4xO3zyNxdpjt gbGVmdDsgdmVy lBrxVUxsBLgxC333NNIwc VxdXrHrpZAaK0gevnGOME 1lOjwvdGQ+OQTtVSI3lZy rLEdjJKOhmW1d EOHxX2m4HmThJwC5RDpfM 4QslsG2RYDtyVWrTNPpqP EHpW3byftud8bsynfxHmM lJOJsKTl8POj3 QKMagKnnOzLxJSJ3NdE1F YW2oPUgyH8qbSvewydviG 9wOyc+RklOOjwvdGQ+PHR fDWK9uPjgDPfj QWMszO1fHWWgS2e9PyDmX iN1GEjiJ8ZauoX5FHUedU MlTVMarIZTlW6colgud4h vcjogIzAwMDAw FCo6NKl0KUHlmHqiQdDdP LC8SsA9KAU2vRBhmY8ndE qpphxexE0iWxu+TVJOOjw vdGQ+PHRkIHN0 tWoyBAykIMDbgR7lWAGsZ 8s5XbCjNfH2HWdtQ0Xlqu D6LJLzkOFeGVWzqTNItY4 sopyah4zkhncp JdJfFQLnCBk3NWp9AYPjf DmtQqClLFB7RwF5IUP8tB LziK7qsRludyavmX9uFoo +UDI5CYK0IJ77 UE32Q3MtJmspyAKppRC+P HRhYmxlIHdpZHRoPScxMD BsTcJueKsdWR4sXh3bOPG yLWNvbGxhcHNl OiB (more content not included)... [facility] Outside Recordson 08-20-2024 Outside Records [id number]# [facility] Note [id number]#[facility] 08[facility]01-2024 Coding Summary HTMLBase 64 XhnblegiVGr1yVn+PGhlY WQ+OO0CQCXbB21evRYcgB 9uS5UQRCbNKdmxQCIIODj RLxSalmYwZR2lnMDuHOAt IC8+ZK4qHSPdTyrlvYRwe 6A0vIL5L68shl3sGQnpgT B1EVVuCaOcoiliu5vqcFb 6IDcuNmluOyBt JJIgtO63GEB8pO39Pm72r CNblIRmo9pajJl0UyJiTO FkJOZ2hJnhNUfai0JfXAV rQ12haCItq3E5 DIOydMqvsALpBnUrfUU5k A1yLGdvpcnhw2zqkbmgYo k8lt71fWMxg3M9zHF5H8Y vhmX3FDVqrJJd KuumzZJNhK2osxibj9krz ltkOgDxRVZaVHa1UDw0TF FocXkdEaCaBI61UYA9TZD fwwPjY9HfLGJe tFgxHeT7u4O1La6NA0QZY aouF8GOVUFNRUkjpBG+PC 72jd57F8DhLohbHdn6ENX vPHD6vJS0nG7s JALtZOnpz4N0pGH0M8Dsg tQpez1dv5ahFFTtJDvaE1 4vvMTdb8J8COMowJZ8NOX rpKgoKyUmjM62 Oyc+BPEflXzzn5UgYpxff 4mgd0wknJi4NyjgICXkzy KpwDvaEYO6e1JdQe2rUZP yfFP0lOZ9sW6i DnViXbX2FUjrR168VtNwu FErNldnW46yU1ZdrVA+PH FgHlv3ALBtmAgdFU6kH1J hZGRpbmctbGVm nBefFR5yKGLeegdlKVPga F0cRVQgZ4l1SoElNhU1EA lqR8HvNFYqgxpbSc08fE4 wNdZqAhU5FTor Q1YzcrS7RLQvnFAxEOksY NF8P90ug3X2QUGwLREpAQ W1kTL4hN6ivPauuapeqGN mdDsgdmVydGlj QKmmNIatT334LRRfzKhuH kNvZGluZyBEYXRlOiAgMT EvMTMvMjAyNDwvdGQ+PHR sEYI1pEmcEOSd hVKwDVrwOy8irFgifVzqX S9sGFYhfopkZNPvhQ5qKS VxtASkjIiaNS0gTWFfhbw ho182JcQfHYC4 XQEvsUAaE6BdxJ9fIfPeG SZuMJPvH8HgfWOgNUxpP6 02QOlsDdQ7YZPuzuIbV1N sLWFsaWduOiB0 b8G5Dn1Sz1RewohdO8Ipa AYlNcSfKiqmDFs6D0WkCt wvdHI+JF28LHJuSK11TFo 2XGA8uKneGGyu QKOdS9EzpK9vHxOjCRKuD GRkOyc+PHRhYmxlIHdpZH RoPScxMDAlJyBzdHlsZT0 yUx3uFBCqJQLa qHartHPnZaTjj5ktCFBtP TimCN1nqLziL7AmrFS6UE Sld2w8By47R27oY8ZprUG +AXYsoMT8aCQ2 lV4qLfMlHeC8NOmwM662V yHmrKEePkdwa2fku9hzpQ z7GrR7CXBgidHtfSgeQUQ 2y7GzOl88N44o IHdpZHRoPSIxNSUiIHZhb Xjkjm8daZ6wWp9+PGNvbC Y2sPO6kK4vBgXdRwW1KNc dS178SbUxiKHi Gpovw7hgz8drvJy1UfGhA UDnzwSgvFqpZWQ2u9SwAu 73X3YgzDrqn4FpQcq5ti7 1yOBpy8U4uAG6 Z3VeLXGwjmlvjBRmsEfiR D1eICWehmvfGUKezK2kZI McH0f2BrSrUbK4VYloH7P tcnM9XAJzqSYr ZWWixVLToD1dlfqge3ukk yunJtGyRSFiSBr4ZCm1FD GziTfrHxKzMQQ4HuQ2GNQ 9dXQybL4hcWkp lgmufS8nXgu+ENJ9qOBsa HRSAT2cDdeepRH+PHRkIH F3eGmuLZlkIQRemX4eDEY wR0v0NhArKlQ1 XPvdX9CybjD3WAAfxWHrS FPztSWRnS5szbgnk0vemh zfZkVvIYVkZBp9QHw4KDW saWduOiBsZWZ0 RvJ7NCS0xJUtuL3ogVpqm tkjxD4kSwz+QmlydGggRG Y4AHr1C7LrYvy3UHGaoLu iBV0geDMwMOhs Lb6dsPryeWouUM2zOZDmw fomg372CaFtr1raWYVqmM AhFXnjNLW1I25ox4C5BCP gMPNyYHD9lCE5 uG3caSoyshbxxNQxoQenv jLytRtfHCorBQzbJ909OV HtqMhlQyNyHXu1S5MhRqy 4IFZlhLouHW8a tYTmHHllQo2btPwwfZaeY O5bEVWoftbto529WiUnb3 iqOLKjsTAfNBxeIJC9T38 if6I7RGOlDPMj KEQ6eSG1jF9aaFcwpgpih GVmdDsgdmVydGljYWwtYW pvB563LSMpjWzkFdUmhHn 8Z1VrMya9SJCh jOgsFW3auVGiOTvtLq8qe EgvpYtwLE4kFIQiwlurf5 59ZnMup7xzVLRuvCJrJIe qUIC1U46um7C4 SRQzYMNaBBR0mYM9sP7fq GlnbjogbGVmdDsgdmVydG apFUjqBQjdN819KJBknWv nPlBhdGllbnQg ZIshXRf9Z3MeCwupyAW+P X23YZQfKX25dZMokEDka5 lyrKj5OvRbIJWzONE0rFe nIMbnv6QiQRIq I55ixQKiz6R5ARHbuBxkm LYiRtTffXF2tV2rRMsdkb vqk4tgkfgaKyibf3fvsb2 0eD98M57rVYzq ZHRoPSIzMCUiIHZhbGlnb x0fsP1zDp4+OFBjnLL0nW D6wI6tHVTfIrV1CNvyM46 9InRvcCIvPjxj s1zjg5gbeHe7ChU2BNOci pFxyIqlTRG9w0SdAk61Y8 9sIHdpZHRoPSIyMCUiIHZ uxLlegu6vwM9p Ii8+WPHjbAB3gMQ8mS8aW pAvBqA5UAnuN225DsHmpK UhYrtnW72gG4LnpIQ+PHR dNxl6MRBthGhp BP0yfKAvROqjUl4nTLQ6X mKqQvVjDPouQ9AyGGKkbe lrmrlgzSK5YTRbNYXyjS8 2Rd5npVebKLJf xVYVxI6qivggb4rsmmwpF kFvTZBoQFu6ZIq6BWNjaU dmDyQmWIB8FbA1CKQ2wAE yhV8esHenaikv mI7cD4KxHLPvgvoeEy23e E6pMoNjMhK2VDuyNud+U0 KZUPJTCwcfTAADU9rbWSc NUJ04S0RsGfh9 WTTemJdaAO7ofQFgVLwfS u9drBfumZctYC1hMBYlmh frKEZlpE1nCKQeaQKqdIf qED0xWRNgzeaq g852FqAfYUI6GCUnmTQuO 0BywP1dEcRaVSSaNGJdE7 EinSPrMCiaR714AEfiIkY 6OFBtqnFtW0Ln JRZoqCcjYgV2e8H8Ga3zA m0fWS7mMRE5HN62XM47wH Hoc3N2nCK8L7BpMMViugq byxddeJJ9WPEp QVTzjQ71pFHwZHjoIz1ve 6C6p041VQJhTSYahV77Iz 1uxUgyRBKeoYQPdC7whfw sl7wzkvudKuOr JUDtMQs7QRd3IJXvxCxjP fKqJSC9OaB8NRN5nFXlhS 4nwSpecmckwB9qVzz+NTk dELYhgwD8F7Tp Nho1PJRiySwsSN7rzXScQ PjyLf5reRaxvHhgAD1eVO MswawzTLPjjX7sYVDbaJC ioIoeLK2kKRNn kokad512LuZwSAR7VRToz THgM6JuaQ5iRnJvFKSlRY OoY1IzqKHbWXgnS760EAx gOeG4HVWahiQn S1LkFHItjQnpKwF0d5P7P w6CEXwMKC79IW95nBJez3 T9lLV8I2QoKIBfzgnzegl odTC8RZKtBFYl oI14tQRaBEvgNg6bo3U1f 121HHXsDHNnpW36Ip3rcJ lrXFIjlZKQyG6pxjahr8f vcjogIzAwMDAw WXj0YDp5FOFezBphVkSxO FW5CjD7TNC4gRHbzX9qfJ zbobzggC3oDyd+B3F4Y0F kPjwvdHI+PC90 BYTpBU78oVBttKNjt2dgg Ru7OmEnENXpLPZ2aFouET iew8TnBMWuY47acFIwp1H 6IGNvbGxhcHNl TvXnmBG4zQ5bOMibxyjdy 3obxhcyEfvgl7glgz95gH 88S29cXMxrXMQeQAOnAYX jVUSrzRgbbh1b gW9jFs6+PUYnqYK8fKL2a A4kXdHwEeZ6IBycU120Nq FndHYaHhbkm3msj9eavFu 9IjIwJSIgdmFs aKbbFUR3m6ThYs75D60bF HdpZHRoPSIyMCUiIHZhbG pwcx4znD5pAz3+XY2kd2t sct76vK83nOM+ KXPmICY7mSxpXDymGMTad R5lXVspEoS4KXIxDvHehA 22rUKfDFioHk8kaNngdTc cJN9kJWOdoaeh u295OiDkw7cyBMEtqSOyP YctJOI2D72md2W5ADJuPZ YiGHZ5tBV0iB9puYcefth gbGVmdDsgdmVy tXqsPUapFYdjZ983JOShz IviAxTwrHStL4xblxMHBX 1lOjwvdGQ+FVTdHNL9bNg zBRhcEUMlzQ8a VNVpR5n8DsJrQqA7OSqaK 8QtzvB3ISCsxYGeSGQnuP KJeQ2pnkduh8ndpbwkTrV bVLNzAUa5VMt1 YTAzpZpyFoAiNCW1QiP5W DU6pPTvpK9xsKqeqoqcxH 9wOyc+RklOOjwvdGQ+PHR jRAQ9gOwvTFqo BEPqqR4uOIAkI4w5JnTtQ hB6EYngS9SmjnC1ZPWvpW WnVYSyeCACkJ3yfwbwx5w vcjogIzAwMDAw SSz3WYm5TDVmdEvgDtRqN YY2BiU5XVA8zFPyrW2ylN xnlvkaeC5gKzb+TVJOOjw vdGQ+PHRkIHN0 nFnvJFqzNTMhaP4iILXnR 1e6VxLkLhO7VGfmU8Vyzl D0HOCbpMKoWUGktQHQkC1 qblfrh0ghpzqc QxHaQLFeZWp4ZIx0VNMta HsjIvNtXRK4PaP3TBT2jE FqdN7orLpkmnetjZ8qSqx +ODA2LZS1CW19 LS83V2PtQyxtlSVuaSJ+P HRhYmxlIHdpZHRoPScxMD DsDiOwjLqjNI7lKc5dOZB yLWNvbGxhcHNl OiB (more content not included)... [facility] Coding Summaryon 07-23-2024 Coding Summary HTMLBase 64 RzrmdzwxWZc4nAg+PGhlY WQ+DU3THNItX70gjSUziH 9gX7IRLYhKQesvENJNEFf LLxConuTdVX0suPPvECLm IC8+CW0rOUQgNrohkJBza 9R7bOT2Y37tbu6zVJepxF W1FAIiAqBttykyp7rkwTk 6IDcuNmluOyBt LMZfhV80MSG3nN65Ub81q UGmnKQep1faaOl6BnDgNU QoZBU0hZmuFRmrg7GdZDQ gA35jqPQgw4Z3 QDBcaXflaZMyEcRgrAS6f P2vDYknofbwq9gqvijlGt r1wg69pUXjy9K2lJG9E2R runW6TZDcfBMe QheunEBGtE4jcmgcj6vop yvqIkEuVCJlQPl1RJv9QY KheRnxGrUnGQ59ZJJ4APX yfhWgH6HoQCEt tLonGyS5b4J9Ej1KP7YUZ hquT6WDRGQWUDwjsRS+PC 02di64D6MnQbfwDnw0AQP oCGL9iGB3aK4q FJZaOMzfl4X9eOR4P3Eex rBawt5ga1tkSLAwLKftI5 1rbGDrz3B7YPOszRN3TWS ezHsuWjGtwF34 Oyc+IFHcxWjca8KiNcmpx 6utq0mazFf5FhujFIFvme RajSsoKKP2g7TmOf0fLVX vmWP0wGN2jP3f NfXsDgI4EAlnU213DsNgr VAfVwvxU55tG3FxiVX+PH XyCkq2LNQzrClpNN7bG8H hZGRpbmctbGVm wYuzZJ1oUKGjxqfgZWExc G4lTLMoM3j0HsVySnA1GJ paB8VpDCZrtwmsJf39qO2 iQrFqXdV6WGur A4DqrqV8OMCggDTvIOphI YX0P69fd7Z0UAVaHTVlXP W1nSH7zJ2dxAuinpyzoEV mdDsgdmVydGlj ASomWKcrO054BBJcwHfxL kNvZGluZyBEYXRlOiAgMT EvMDQvMjAyNDwvdGQ+PHR aSOH3iPqyXAYx qKWhGOteLe9rtYrruMjoF X5uKNLkezvbFCYpiZ3qWE ZmjYNetOwxFV8tMMPppcb of052VoDsMJI8 JWIphXBhZ8ZsnC9fEsYzG HTqRDJtL9UiuZThXApcT9 36VZgrKcR9JRBnqnIlT6E sLWFsaWduOiB0 z1H4Al0Zu6XcepteE4Ysi THyZcQcFbcfHPl6W0YeHz wvdHI+PC48DWAoLB01YPn 2UKJ2zSmmFMfb GWFaF4ZnhG9bShLvAWMaD GRkOyc+PHRhYmxlIHdpZH RoPScxMDAlJyBzdHlsZT0 nPn2lYMAsDJEk wMjiqWWxYmVbk9wgCJXqI UikPU2scYezV4QzgQB3BQ Tbr7t6Pn83L15tS7IeaCT +XOBnmQD9uWI3 yY2fWeRdJuR7UHtzX862G nZafSDhDzbzi1spd1nhfM k3KyH1TRSyhjIopZomAJK 0c0YlCj41Z04m IHdpZHRoPSIxNSUiIHZhb Gwjbg9ohJ4lTd3+PGNvbC Y8iWE0qH8aKmYkWnT3GRe nT078AvVvvYAy Txbey2yoo8kcfRm9UmWuX SEdcwZdtQbqAMS5e5FzTx 30R1BbeMyzz3PnFpz3ef2 2cNMmu0J2gAE0 O0OgDHWnsxwomGNunEfqK D6kNSSvndcgNJZrjC2gHI TnG0l0OiSgYdK9DXvgC2N icgE8JPOhsRXe BXEvsMXNyP0rdtccl2azz weyYnZdVQBiBUz9RIc5WD OniBbjNfDfODR6JgB0PGU 4xIGhyY2heHku vlfagV5bXrj+ITJ5nEKjc ESOJG2uEhnnhBM+PHRkIH B5nOrbKMemABFrrF9iBJI vR4g5ZuEqAsH1 PSygA5BigsR3XOIuiCDeV UElwFXMaW0dvfkxf6abdu bcLlZmXCSvXYn3UPc9VNL saWduOiBsZWZ0 RzT4FQZ6iHKsqM4fgMglr cmbbY2sElh+QmlydGggRG S9LIp0P2HoTqf4KHAxkPw tQU4arMKmFQhy Ym6txKtzfSchVH5hHGNdd oars510HlNjv8gpEBCvpD WgGLmkTGE5P72im3W2VWL xYNLwYAO2pWM3 uC0xeFtnvzvicSVdhFvch xTbeFylJBvaNQquV063IY GcbUhjTjZrHWz4T5HcXzk 8QOLiuAvaSP6u yEVnUFrjJc0lvXrgqAheY P3eZNAjsvxdr815ZkIwl1 ziRZUbdGIhJBpzWWF3M05 pd9H5DETyWOTf NTB9iSQ2lV0kdRoigwscb GVmdDsgdmVydGljYWwtYW bcV878CZKukRyhDrGcxVk 5R6SvVvg1IUYk wMqiWZ8lcMIqRLjnQj5zz MeuaPweTI6bRKCjwjwkk0 54VgMei8olJNCiqJQeHPa gPSE1J78xy1W2 ZSJcABQmGRL6xFJ2zW7nn GlnbjogbGVmdDsgdmVydG kgZXxvTVdzV869FITdpEc nPlBhdGllbnQg EZitXSp8J9InIvruyHG+P M71DMQaTY58sDLnzALdt0 fnxWe0NjBtXGOdNSZ9gRh bOQogk0IlOJXb Q72pxRLpd3S1FCPizKhkm WArKtTcxBM1bH5aQQweut zgy4rlhdltDoluq0btiz1 0qI46L25iFTey ZHRoPSIzMCUiIHZhbGlnb e7zxI6vAx9+OLDrcXL6dT H7qT7hANJhSnO8GQfaC72 9InRvcCIvPjxj m4dlj0wvjMt8PnB4HCQse mRipMdfMTR8k6MtYc43I9 9sIHdpZHRoPSIyMCUiIHZ hcSutvg9ejI5c Ii8+ZQPfaJM1yEV9xM2yH kUbNhQ2XOhaJ982FzTurL MnLmtxM18nI8IuvQH+PHR lXpt2NOBoaIar MM6hwDWwWVsfYe3uGQW6U kAwKkJrUNbzU9RgDVZijq qlvtuifAJ7ZPXbHIJjrH9 6Gp8lxCweCWOf zFDYgJ8rrpuzd5gkybqyY nTlZQMaATh9EAr8FBNrsP ymJfKxURL1CvD6MUO3gWU eeP5gjZkxhrzp fX8kA0MiTNArjpknFv81p N5cMbRzJfY3DCfxQzm+U0 XRUGSQSvtaLFZQZ8dyUEv KTO11R5IrWmf4 LQIpjYhrCZ8lcVEkADywV z0bwEfaeCgoQO6iTOPccd tfLJCpyY4gCKJmzRWjvBi fOQ8fQMEgwwwc w432YvQyKRB5MZTtrNWuX 6WowK0cTcCfNICcVDLpN6 WhrKPvHUzzF961SSfeQrH 8BWEexkDwX2Oh FCGulEnwGjG5l5T2Kj7nB s2zWM2tSRB3NR91QO02iI Ang9S1uOO9E7HqQQVoidq hrgsjtES4CGDw VXGziZ83dTGkLTgxBk8be 7H7j593QCGjSLWzxI42Dp 0zbXnwPIIysNJEgG8ongi jk4xnjaadBfLs LUEoYGo6FLh4MVYovXnrU wYdNDF0YfJ6ONI3rAWykY 0yiDnochrsnR9gLzq+NTk mUGOjejW1O6Oc Wuz9EYZvhKxnDX3fhUMdM UbgRs9jxTjljVikJI3jCE YslgjgOFAikE9rZBIytZK lzOstEI8yTTOw qsnyt221DyNsYIC9IMGch ZIfN9XocK1nPcGwPKBzVV VsQ1TeuIDpROuyP429IKt qNjG5EKZalxOh Q5VgQAKrnZmmNiP4x2A3A b1ILEqOTX73KQ38hFBve6 L5lRV6Y8XzWGQobvgbeur kcRH1TCKnYQHl zJ88kRHuUDygJn3jj7Q3b 146PWPsXUEjeE96Ud9fgI bsHKTxxAGTzU2yixxfz3f vcjogIzAwMDAw PEn5DEr4TWAafUewZsMtM BC3XqA1EHG7vHDubW3jsN bmsnthaX5sWwd+B6S2H5L kPjwvdHI+PC90 WRJkII54uPQwnBXgs7unw Sn6DlTcKDTsCOM3kLhiVJ tgg9HaTLRoZ44gaNNzz6P 6IGNvbGxhcHNl XkQlgGL3dH3lSGatakgpd 9knuxxxIppmc2bzwb36qS 24N08vYGpxTBWkKFFxLOB wJSThtDxasa9q tP6wAw1+PMJunWA0qOM0p G1mQaZaMmX2KNpoQ759Fw LezFQdQcygg2aoh2ddqQx 9IjIwJSIgdmFs lMtyQEV8u0AeKe36R86zG HdpZHRoPSIyMCUiIHZhbG lndk8dtA9kOc1+QM3ed3s zfy66bP41wFV+ YJRfLYC8fLqzIUwxTYTtx Z5mPOlwLoV0SDPwKhUbpS 16jEGrGOapPq0heHlyrYl zCE3mUJZumazh j519LvYke0piQBOzvTJzP AoiTOY9W11at6B6EVUfDE IbAVE4eAY8pC8tyMwxdhl gbGVmdDsgdmVy sChgAZxtEBwbM691ZWHaa ZiyLuMsdWCsD3opgaHWWW 1lOjwvdGQ+IFWvNSE2cUo cIZziAHAkrU4y TEJpV3z0WxHqSxJ4ZJwyQ 6VuwhH0OIApxQDdXWDzgY IUiA4mbzwxs5jtpoazLxM oMUEeVQg7OZe7 VRAaeFztUnIyASL1LcJ6P KK0hFAsmL1ekXlpugootF 9wOyc+RklOOjwvdGQ+PHR mSLA0kSfoEIcm ZKDxiL7eASShO3l6KwBuJ mL3KLsjK7SvsfW0NNPjdO IkWWZljXKXqK7fvrrww7b vcjogIzAwMDAw ODf0MJf0BYBlbVyoCnOmA RD3VvS8NAL6yURhxX8ahX pdsuulcG5iNma+TVJOOjw vdGQ+PHRkIHN0 qCfsLJvdGIKjfX1jNSAbU 7s4RaVaLpI6DRozJ5Aqtf J9OZRbgEHfIORmfRRWjI7 kefdse9nfvdjm MzHiMLFlSMo0SXv6JTKpr RrxEpVtHPA0XxF6PSZ2xJ FblY2baGxgprfzrP6pKhb +GEN4HZV2CX28 VW16D5YwDcenkFZhpJV+P HRhYmxlIHdpZHRoPScxMD CrFkDwoOryPO1sNe6nHGV yLWNvbGxhcHNl OiB (more content not included)... [facility] Wound Care Noteon 07-23-2024 Wound Care Note [id number]#1 .00OTGTIFF [facility] Wound Care Noteon 07-16-2024 Wound Care Note [id number]#1. 00OTGTIFF [facility] Coding Summaryon 07-12-2024 Coding Summary HTMLBase 64 EdryhhsxVRv3cJg+PGhlY WQ+AK8ZXLHnV46hkYPmjX 8uQ1HBEMhRDhcrJSCSDWh JTsMwfmDzBO0glOVgPPGl IC8+AH3vCPLvMbzevFCtk 7W7gIQ8U39cua4pPBoyrL Q0RHYeYjXaddghx0jtdEx 6IDcuNmluOyBt YZOlwM29WDT9eD74Jn74k CVjuEIaw9exjNp1NkXiMK TqGTX2vKhsNWsyd6ScXNG lO40yqHHpi1A5 QZRoxWrwsERhAbYuxEG0h C3yWEqpmqkcm6zlbbduWr r5qg92dYTqm5S6cJK8H2P bpxK2MAXkuJIz UhwqrMLAoV1ewoegj1daz fauErTyYRBiYBd9YZt4AM SbfVdnRxAgVB97DMU6EIQ yhpLkS9YwRBJz wYtkQkH3k7I3Ey6UX7WQO wfuL3SPWSODNAngjOE+PC 06zn95X0LzZtesWbb3BYF tRJA1kGH6bL0r XWGvSCoai9J6kBI6G4Itv yAfah9pw8ynCTKvRApzF4 5itVUzr1O5JKLblYL5MAS yfVpkRaCgrW66 Oyc+HRVntTpkf1FlRzfsc 1lco3vyuDg3UbpaDICjer WizDnxORV8c5GhWd4uPNN ifZO1rRE9wU6e NiTySbY9LEypE756IpGao RQmJorlZ07uX4VlyDI+PH VoVlm9FIRtrLmbOF5aU9P hZGRpbmctbGVm tPomSH1oSOVdfjjdLWVhw V4sQFPlD4j7EhOrNuR1BC ghX5OfRWTdaaohEd76nY0 eBrYcSzL3TWyh P7MybmG5YSDsgEUmKPneN RA1R82ql2Z7XUWiLJLtEC K0cLR1bV6cuDijklkmxET mdDsgdmVydGlj ASzoBHdvR172ALXwlHdlP kNvZGluZyBEYXRlOiAgMT AvMjQvMjAyNDwvdGQ+PHR lOIO0qIalYSLk mPLtEQzaXe0guUdptMmxJ P3gTBYnteuwVIGphS4jKV UirCUbsDjfTG7zDRUfezy ht523LjLfRJE3 RBFdqGXfI6MwkF2nReAlP IVfTHLwH0IcbBFiGMmkP2 56UEabGrH7MBNozlUlY4N sLWFsaWduOiB0 o9N9Le4Uo1PhaumvE4Uwl FWjWaNoZtubRJx3A7QhUo wvdHI+HR36QXCmKJ88CKy 8PQH8yIknRCym FGBgI8DfgF9jBxSoOOZhE GRkOyc+PHRhYmxlIHdpZH RoPScxMDAlJyBzdHlsZT0 wUl6vBBHlVDZw nOaizWInAjJsi4ysWNNbU OukAF7zeTefG1ZwyXT2QW Ora8o4Kt18S02eP1DkzZR +DZHonSH7qIO8 qD9sTaKkZoK5ETljE485Y gKzzKWmJedaa0ows8agdM f4BgL1WDYkphOccAmjTPU 3k2ViPv66V72f IHdpZHRoPSIxNSUiIHZhb Tjqft4bfX6sCc9+PGNvbC S4rNQ4wW2hGrQxQlS9XPj oM303XkFcrZUv Bpcmh9pqc7bjcPq6TdZzE LLdvuFisJxiFIF8j8XmPu 03B3UkhIuez9BiKbr8iw7 0qULer5V9zSP6 B7JfFFLdxzumyAZsoOifP T5xRTHeczffHLAvpZ5hRA AsX6x5UmChSsD2JFguI6H zfwQ8DTDenFFf DEEhqGQYtO6jwxqdx0bnu kskLiFzJULlPXw1DJe8AS UgbKcqIaTmTSO0WpU0FAT 2mEBbeY5bhCsc ytekmD4eFhi+BSR3rCXnv RSTIC5kRzvxcYU+PHRkIH P3aHsaXGlpGFXukM2wLYG jS4o2XlFwAwI6 ASlaE4PezcS1DWDqkIPwC JCzjPAXlD7swwckf0jjgn fbFcNlPZWzVRj3RRc3GVW saWduOiBsZWZ0 UvB6ZDW5kIJwyX5zlFsse jewbC5hBfr+QmlydGggRG R9CNd8E0IpVcu5FJNqgJf xOS4gkTFiDFqe Vg5kfFtykVudOZ0nOOOwf junf528KgPmj4osOZRnvT OaMUokGNM3S00fc0Y3AVH pYOBmTNV2aZI9 oT4mvIyjmwcrbOZlrOmkh mKslKdcWSyvSSyuZ747WN JslMeiEaJlAKh9D4LqQlv 9UZOdcZurQC9i mAVeYIpxOk5nmLwdmSfmD O1uHNFcakkyc449WuEnb8 pgFSQzpGPvVTquCNA0D70 uo9D3VLWiEHIe NNQ7eMK5cX7doSuzpidng GVmdDsgdmVydGljYWwtYW idR934YNUpjNrbQbYgqWw 7J6WjAsd5JVMe zNsgIP5qwBUsTTvmHd4ms ZsoqKdgRZ9xLIBpwsbtu6 69MrVxb3xbJYGugDVwRRk hKPK4V42jx0J5 KWYoAEKeBSE0sCK7gH0mq GlnbjogbGVmdDsgdmVydG rsNYbpXWyjU783JXZntOx nPlBhdGllbnQg DUtbMXb0M1HfHzrtvID+P J11YBYuVL68nNFqyIKki2 uyrIy4HwIoLNRwTDD3zZq pNUmcu3DxDBIi E81dvRCir5P7ZUTdrBjok OSnWmQllPX4lW6zEQmyev vkd7vytltzFaolv5sjat5 4mN19T87bYBqo ZHRoPSIzMCUiIHZhbGlnb l2qmH1hZo9+TKCjdMO4pQ F5eB3lBFVmAxM0GGuiA86 9InRvcCIvPjxj r5lhx4vuwMk9GeK7ELYng tBakLetEGY9x2PaTo36F3 9sIHdpZHRoPSIyMCUiIHZ ztPqhgg3dzU7z Ii8+QVHukVO7xWI1qR2pH aBtAuH4BWcyJ146YvFinH KxPqlwC62wT3XqfFD+PHR zMld7KAKnxPty OG4lwQCmYZapQr0rNIX1C rJrAiNlTAvfP7QnNWNlhg cmgwrioVZ1HJFwVSYrjL5 9Re4jgKvhOBRq fMINxG1jcfdkn0xhnnimS qJkJIUaDGw4HDd1NXDtpF wfJtCqBPJ4NvS3NID7vUX pxF9uiVrftdjs xV6sQ5IcVRXjwztwTc27x J4iYwEhAcQ1WLlyPlp+U0 ZDESMEVfysKXZWZ4mlYTc LCK28D2AyDtn4 MWAgmIoqIX9jvVHfDUcaA j0czZeplDbsVK2mIBGwbp amHUUqrB7dIWWzgTCqvBr gUG1qSQJflcdx w138FxClFIJ8RHGvmVPjD 1LbtP3mUdNtDWRhVSSoT7 EfaBJdAAjtA528DGrnTkY 9AIEyqxGzE2Jr MYRbyBxvHgL1x9Z1Cf5aS j7dEZ9kNZB7MP97KX10aR Yei5T3bBM0E1OgSNOkbiu wiivhnRW3ZAAx QZAcsP68iNXgRTavXa1ol 2G3t360BZSyPFPujB64Yk 6rqNizNLHaoIHWtJ6nsym mn3nbgtvvKfBu MKKtLNi3AVl1ORZorOmxG vTsXSP7ThY0VXD8cVLloS 2mhLdfctjlxL7oUtn+NTk kKRRedqG7P3Qq Lrq1PDTmlNyoJI7yfEDeO YcmOv8daWeyiZoqMC5vPZ XieuseMMTwoS7kUMSsqRN rmNkeLP3vFUSs nollq214MfNfXSW9NVFfm CGsL3XzfB7qWfIjVHHoHT UfA4BvtUZiHGhcT375QRk gTcM1PNSimdAw H3UmTFDayNnqQkY2x7N8R a8XAUyLJV46GU14kIZmz6 E0nYW8W0KyDUGrsnpfvcy dmEB0QDEfUWCe yD89dAWhPDhoUa1ot5T1z 573QDYfVPSneC14Xu2btY vaZBVcbAWVjM6satjhh6h vcjogIzAwMDAw SLd8QZt6GIBmzPqjShQiB ON1SfZ3LFB5cBOykL3cuG ikjntonR3uDeg+H9N0V5H kPjwvdHI+PC90 VSVmJI53iYOkxSUet2hni Pk1ZaMdQZOuZFE4nLiuTZ arc5ExAXDuF08agYBki9M 6IGNvbGxhcHNl JlUfqUR8fW3jBZjlyutcl 5eqoypdMbeqg9skpr56gY 65C66sVWqtOQBcMPSzJIT mPGZnlWcdxa2y uU1xZl4+OTKngKJ0eSF8u V8dFtXxMvW8VWzmF720Ox RmvSOjMsvsx5byi3pkfLn 9IjIwJSIgdmFs uMfzEMK3h8SnVm62A33iL HdpZHRoPSIyMCUiIHZhbG dwec7zpJ8yLi9+RP7fe7f kce38jB71iJU+ XYOrEEW2vZnxFAemQJVkc S6iKQvwPbZ5ZKSkYoWifJ 48nKDqOSowRy4zbHverZc qIG5qHRYhhivr w863RhVct0hyICLuhCIqZ FhzNVE9O70tq0D3MQNcWX TsYPF2yTG0nC5icKrrzet gbGVmdDsgdmVy aFvlWJhlBNjtJ485FPSws HrgMzVdkQJkM1lsjuLOEW 1lOjwvdGQ+KLGrGTZ6aRf gRSqxUINktY2e HBFvX2i9WpSaCeT1RYlrE 2GklpM0PVCoqGCoDWJekW LWhQ0ezagxb8lkfqyvDoO nGKSyBXo4HCx0 LGXpuKoxOqSmAXK3JmR5V RH6tLNjeG6knMhvyxknyJ 9wOyc+RklOOjwvdGQ+PHR gWYN7kIhaENmc QNFalS4dFJShD4a5MxLrA nZ9QEmnN1WhvwQ1LJKcfM XyOOIlwHSLpI7mpsjwp1e vcjogIzAwMDAw KPr5YCv5CUStyBqxZfMqV TF6SdY6UIM6eNRatD4ueG gvxyujoT7uUca+TVJOOjw vdGQ+PHRkIHN0 mXmeKIdrMJTvhX8lLYDgS 5l1RyAxGyG8ACdrW9Rrhn M4FAGrkDYiKWPvwVTHaM1 nfqukg4vbtxks QlPiUSQrAXa2RLh7SHYfa TnuJnWyMMC0NcP9MOF1uP XtnJ5ntLpexrwooX7uKiz +WBR8PEB5CV24 PV29G0QjPwbraXUynVN+P HRhYmxlIHdpZHRoPScxMD GcBiAlfLozNT6aQj0wDNZ yLWNvbGxhcHNl OiB (more content not included)... [facility] Coding Summaryon 07-03-2024 Coding Summary HTMLBase 64 CugsjpxiZVt3yOk+PGhlY WQ+MU5SNSOoB66xqSAxhT 9dA8BJLBfSFeowBCBDBBh HFuNuyhLiTC6qiKFdJPNk IC8+SH0yHMAyXbgdhFByx 0Y5wKE8M63ksr7fJPtvwY L2PDScLmYhrdvfa3byzVn 6IDcuNmluOyBt KHCxsV31PYZ6aF03Tg88u UDdjUVkt2uiaNp6GkMhMJ AhNTZ4wFybKDvtc0AhYHS cC95mkPDbz1C8 HLZiaDtsuUJhSiLbeNV9i A7zTRnrvubmw3uslghhTx y2nx47hARef6T7xAA1K3Q rlwC3EEJcjPLg MbubbTEZoJ5czqrjy6dcg ttnFvSxEBXwZFv3SBp5EA OukSqfYsToBA29VPO2JRH yjjDrJ6CyIALu dCceRqQ0p1Q6Uz7UQ2RKE zcwM0ZUATQGCRunoAZ+PC 79sy03J3ChLiniNjo8XJW gWKS3kQJ8xO7j HREwGMsyo4J9qMN9E6Gme fJzpd2ul8kvQZKzRQuoO5 0ltBFys6R9JXBxzHF5AIT cfZgxIrQmeT85 Oyc+SUQseMxzn0HcGtuvc 1tpl8emvWz1BwlvACFtok QezMasIST4f2RyNk7aCXX xhFQ8mBG8nS4k BhObLcN7WDbyP771TaZyf LQoAamnB08hA6JspVY+PH YjTbu2ZRPamRkoSV9tY2X hZGRpbmctbGVm qAbnSA0nDVEoobxzOKQrc O3rUWGkD0i4UbPdUxN6OU skY5JzRIHutcmsRr58iL2 nXkUcWaU4NNtv G4EavlA4WCZicJWpZCeuX WI8S53js7D4STMiKXCrAP F8oGD5eP2ggWootmjlnEQ mdDsgdmVydGlj QJbxGYqqT148BFInfByyQ kNvZGluZyBEYXRlOiAgMT AvMTUvMjAyNDwvdGQ+PHR dFDF5rKizRCWv yFRmPTymWc1xnMkbyEoeZ K7jUTZirdqcMLVveQ4aLO FpsPSifAwoZY2tHSMmoqa fz025VtQsKAO1 FIWkpIQjD1VklU7yXqGvH RGvCLSiQ2RfaHBqMCwlJ8 90VJwyClL7FXZfocNeY9M sLWFsaWduOiB0 c0T2Dy1Vz3WzawxnK7Iop NPmCuJaYiykJKi8T6GsNe wvdHI+DA21YFLzZA51GDx 3MGY5jAwsRIvo FTBtW5HoiH7oKjZxEYAqB GRkOyc+PHRhYmxlIHdpZH RoPScxMDAlJyBzdHlsZT0 nOc1gJXIzTLMm rIyxvFLoLzUac9tcRRQwK VelRY3vpFopR4JscEX4HT Bcy6o4Nb53J44fT6HsxNC +GSNasBD8wBQ3 mB9zXuJaSxW6IChhE785J rEqfVHgBbiyw1xbu9graB i2IxR0RMJivvReeLssPOF 6h8LfNt00T02e IHdpZHRoPSIxNSUiIHZhb Jzqlh2ayV4wPa1+PGNvbC I0hZF3bF5sUtUgRuE3QQa hH917QwUouYMb Ztihw3uaz6frbBo9QwBxT UTuupUvmVwrTJM2n1RaKr 86A4IqyFejd8TiEex1xm8 7rTEzw9O1gTS4 H1DwLUMpxxnjlFAtmUmgF Q3hCOHyipquNGRewT6cNM WrV1z2WnEhRyK1PYvpM8E cbzR8BEDspDFf GXSbqXSYsS8iqaxps7jmc nlyKcHjUXEiJZh7SPq6PA KtqVarTqUmBJR8KmS1ACZ 3zGGvvH5pdPnn zhrhkG2hHpy+YDA3kZKfp YAYLO9hVojqjOR+PHRkIH M4xKhgANujTYTojA4dTSD hQ3v0XoEvOaH6 MLqfP2XhtuA9USEclMQgL KQrlQKLqM1qshbca4bhcd swNjLoYZLsXAl9NYr1LJZ saWduOiBsZWZ0 YnL5HCV8aHVgsQ7eiNaqf dqahX2iWsc+QmlydGggRG Z9KTe8U0KyLke1JHButVu pOK3mzPXaNLvj Lu2amVnbnXfhGU3jXIIzq phje455GiUdl5uyXILzjH UdULsbWSZ0O84lv4L0IGR aWFXxYCW8cRY0 xA8jcZqbbhmfuZKxuTobv nWyhBkiSMoyJZazG631VK GjhKorQrJfPKb2L1NaJif 7YVYncNtpJU6k pKWqNNscKo6qpEuyhHmsB J8fONKycxkwt128RwDys6 xuHBVdjWJtCDgpDTS4X30 bb6S2BEWqXYIv WMZ5oMJ7iD2wmCylckxtm GVmdDsgdmVydGljYWwtYW nqR835EAXalPuhQtKgpIf 8C8VwNje6JUTs vVvyOF9pxTNqZQtqJf2zt NkzkBboIR8aMWGsiznyi5 65WdUic9kfKIKlsSOnNEg sRQK0U52ao8A4 WZFgYSNjHQC7qEH6xC4yy GlnbjogbGVmdDsgdmVydG vyREdvOTieT887GLLuoXh nPlBhdGllbnQg OQqhHDa4Q0GzFdcneIM+P E89DVIwTO85gOXehSPcv1 cztSd3CuQpWLBpGSM7fYw cLTebn6SkFOVx P80mmLZbk8G0SYFgaNxty XHoNyRuhCQ9jD1aSSvzba yub7pincwtGsdll2jolp9 5vE43G00sLSsk ZHRoPSIzMCUiIHZhbGlnb i6gsU1hNg0+XNUbgPF8rU T4wC6mTZCxByA0ZXmtG81 9InRvcCIvPjxj u0dch7iovMb4UoO2YWNkd xCcaQycQMP8y4LyLa22H9 9sIHdpZHRoPSIyMCUiIHZ gkOtnie1kaN2y Ii8+LSWtzAW0gBR6aR5eV bZcUdL8JKgfR400XjQcpE OjPljdX03qI5QioCP+PHR jMxr0UNEqtKpt VD2ljDWpEBuxQl3bEYT5B ePzMxLvQLviH0JqEKMobo dbrfkcoDQ4XCLoFGLzuC0 6Xd2uaUkfXLSr tXDOoU7fcfxge8gigwduU sMdYRAlFOm1KMn3CHAwuP dkNaWdNTV4AmH3QWI3bBP okN2uxDomsnrt aF8nU6YaCHPrmmvnYv83p J2kEgFfZzV9YMizEov+U0 RQPWEKDfzpLOIEN7sxXUc DGU39K5DjOes2 YDVfxIsrIP7lkCQmGNzqC e9nnVxqgGibRK3vWAYjkd plPMLmaR9kNFFrmPGcrAz bNN0zBEWtbtwr i892LpJgCMA7GBXljDGrW 0WnoW3iUgNlUYTiCSOdO8 MpxDLfGFyxH738SHamZeD 8EOZuqkHkF2Mh VEFhaPeyWjG1u1V3Js3jK i5iLI1sCMA6WE20JV14vB Cph0X4uOY2J3RsMMVsqtq sbqpfqMV0CJDa BCZruB71mJAsMNwwAb3wm 7E6e100XCJbSAKorL64Lf 4agLeqTVLemLXUdB7gpoi id1lgcmwpYnHe RFMcXJf2HZx9ADWvhMwmJ eEoQZS7ZuP6VRK8zEKsgA 3gyYopckfovX2tCav+NTk lIZKfapP9X5Sd Ftq8FOSpxUlgOL4kwTHjU XumGr8kdXpxpQxdMF2sND BksdclKLTngO5fEJNwcLZ qgXjeOD2eUOOj crjcb324AfHlVDF5MXGoo SEwC4RqrY5eFuNtJZYcQP CqH1ApxYSxWFozS615GYo eArJ5LQOhqnIb U3IjHPGrvHwmYyP3h9N7B n0CXFoSPV72CQ44hHRks5 V0dQI2Z5OaKPNfefqwoot kaSW5OMHaUPBl cD58mRFbDDjhHx1cu6Q9b 298DQAmFVFcjO34Fs9fuG wcYOBzqYENeS9aavepo9f vcjogIzAwMDAw CEj8VXl9HINnvTlbRjAwD DU9HeI0SVJ7mUVxbS5ciE jlvnhtvQ4nIhf+P6B2F9Y kPjwvdHI+PC90 XTJfGH31nLLrlCKjz5nzo Lm5DqRrSAPbFTU9bCyeSN gza0ShFDKeM34mlWXzi1A 6IGNvbGxhcHNl NzYxmPJ1kU5sKMhmehmoo 1byymxlVwghn1iduo22uN 05W73jGAknKUUiMCLiQCF vDXZfpBlrag8j uE0qAl0+UJLkoSW8zOV2o O8gMnUsLdF6SUbsY549Dp UfqDWqUxafd7eta2amuLh 9IjIwJSIgdmFs rBvvVHQ9z7CfMq49C51oH HdpZHRoPSIyMCUiIHZhbG duws6obU6jAw2+IJ8yv9u bqv36yP50iDJ+ RGBdJJI1oTzfPUelNENen D7oPEewKtA9EVZiUoJosJ 30fBNgDKyrDw6olIqtwVk zJU5iXEVgtuwh c261IeUkj6yvLVXkuODcI DhtNHD3E76bw7Y9UMGjJW UrLEP9eOU5gX8prRvcalg gbGVmdDsgdmVy wBcoXUezYQzkX577VTTsl WfbYlJvtDSsC3whpnLDVJ 1lOjwvdGQ+DQDfVES5bDj bKOkaEOBawA4t HDSpS1p7MjJdJeJ4AUykH 7GptqU3GVYowBMfWBCwqX PXxO3swadbf0bjcqidSsV zYMDbKWu3DCd1 LSVqmRxuZtRhOWF6KnF6N RS4eNMztU5ddFlsczbzdF 9wOyc+RklOOjwvdGQ+PHR lBWQ1pIxeLXue BKHjoF0rYUMeD2y4OmMmV wP5ILvuN8SogzQ6PGQjyJ IkOWZaqSNVaC8ellhnp4c vcjogIzAwMDAw QZb6ZMd7LVGkwGzoSqSaA RL3EeZ9GWP1mGHbnH8yeU tmbpmwuL4hTvo+TVJOOjw vdGQ+PHRkIHN0 fQusNNrzHHTakX6iZDAqZ 0s3ZyRiMwH1BZduQ5Vhzx H4JMHllWPaABErwJOHgB3 qpuzod4suzoha FyLqHZGeFWs3XZq8NNFxn IhlOlJgMLY2MyQ2GEE2yF HymK7rgUektjxqkV0tBrm +QGM8VGK3BQ17 UC14W5HbQabxzIIzeBT+P HRhYmxlIHdpZHRoPScxMD KwQiXkxIisAO0jBd5vARV yLWNvbGxhcHNl OiB (more content not included)... [facility] Wound Care Noteon 07-02-2024 Wound Care Note [id number]#1. 00OTGTIFF [facility] Coding Summaryon 06-28-2024 Coding Summary HTMLBase 64 IyytjqftXIv3oQj+PGhlY WQ+QE6LPSNxO36lhFPuuU 5cD1ZPXIuTBzvyBFMEGDk AUhSricMxUZ5nbUFbNKBp IC8+XX7cALNrHmepdHTfx 9M2kJA9U72nri7wRUlkqX Q1KJRhGjOyghueg8xhkZs 6IDcuNmluOyBt XHBabU65ZNA0zY45Fg75l HTkuIMvu8cbwYo1BhOiKZ XsGEB7mAvjWSnge1SeFWZ tX34gkLTzw0F6 HJRdhOrayXEpCpXqnLJ7t M6zJQbdgakpe1surzbxOp s0bu52cQUvo8N1yWT2U8Y zjrG7UKUioKHe BhcsrSQYwL9mfbhli8klw edtGsHqOWPuZEh5MOc5ZN HbfHapPsKkUI52IOU9MXJ wcjLrU0XtSHXb zTwwAmV7u3A5Ry8GB8VJL ymbH8SHXNSOLZuqsXY+PC 30pj14V5KgPowaLay0QRZ iGUX7kXF2wA2y GQBjPRfmf3S9pSF9N5Crs mFefc8ay8kxTDMdBXsoX2 5ksJWch7T1HSVjhMS7COY iaSzlXxOccE90 Oyc+XFPwdJjkj4WrVjvfg 4kfo1tqkIr8NevvSVTkox GjeWmsCCP2j3DeZo2nXKL wnJK3mUG7wX1w ZiLqHvX5MXtfZ292QuQtj UMkHcjzH47qZ7XhaBL+PH LoJmn6SUFqrAtrKA1gH4V hZGRpbmctbGVm rFwhIV5mNNCumpodFWXuv X9dHALiD0s6RcHuHmS7RQ bwU7WaVCKstxizFn90vG5 fSyDqTiM8GLyh N6CwafM3GIGhjSBpAFvyM VQ5Y68ar7M8TWEmHIFaGD V8zFW5mR9jtZwhbfvixTC mdDsgdmVydGlj HIsrTDfdT008GQQspHwbW kNvZGluZyBEYXRlOiAgMT AvMTAvMjAyNDwvdGQ+PHR uMUU7eIkeVXSp tVEiOFgiBa0edAvmxZscH H5fYQCivkmbSYYglA6jPH SupYXobMzhRK1kNGBcsur ob677ZaGaFGB4 SBKbjUEaN4YvsP8fCdOxZ NOtUZZeX5DicOCqNZtqS2 05EJstOwL8RCTyekDgR1U sLWFsaWduOiB0 m2I7Wr2Se8ZpsfdaQ7Irw QFoKgXdQrcpCDw6V5YeBc wvdHI+JG69GLUfVR46DMk 5XPJ9tMkdVPtp ZRNfG0QoiK3iNeQfNFGoE GRkOyc+PHRhYmxlIHdpZH RoPScxMDAlJyBzdHlsZT0 vRm6lLREdJJIr hFiboGJeGnMsl9csJBEnN EqyOP8xqThhF1DyoYQ9GJ Oee9v8Hh88E44gW0IkvKD +JLNgiII7uDY3 yL9dNpXrInD5IMfrY962B sVtqNGpJjlqg3gbb3abdQ h3SyK7HLQyvzEggFzfIKZ 9p6LhLc31O65z IHdpZHRoPSIxNSUiIHZhb Zvfhh9eoE0wVu6+PGNvbC I9iGV1sI8gJpAzMcO7ECp jK911QjFqzUXb Xydqo7wnq8dyfSe4DnNxW SNmaiRmrVkxHTV9b7AxEi 36O3PunLtzg2EtDhf3hd7 2hLNqv0W9sCX4 I5JjKWAecioxhIXtzVfbG V5lMBDynfdkYYUhxG9zWN BlV2f7UqNoEzD8KLznV7A rouK4BVAppEUa WSNhbGNWyU7hooljx6rdz emxMxYoWQYgBEy9GQq5ZB YfhVyuLuUzDSO5SaN4LJF 1oFDktZ6dxPgq nnymrL8dBav+VYX4kAEbb BZVHX8sVngyzYJ+PHRkIH T6xIjqMAguKHYxvM1vGBN xF9o0ObXhAhX3 UYgnJ4CskzO9KILmjXIhG VLgyNZCbB6bkhibf8afgs vcThAvLCGnHXk3CEp1CEG saWduOiBsZWZ0 DlO6RVC0tFOpeT7laDpbq rlziC6qTbt+QmlydGggRG K9LGk5H8FzKux5HBXnyTl cXP6owNSgDFcl Ea8tgQkphSxeZU1eFVOhq kvku072XmOgo2lpTJLxjG RwAKnkDYU5G74kt4O2NWZ nDLQfYHT3lQF2 oF7sbUcfdypqkORfnPrvz fZagGhwSRwqPRemH364BD ZrcFbtWhJtVRr3W5PvTxi 1BRVhqJhgGJ6n cRIwNBnwUs9dhViziEmaD A3uASUqdzjki057AaUel5 wzANFpuARqXTdaZZF3A19 zp6V9GROlIRIs PVA1wQE4dF8bfOuqluinh GVmdDsgdmVydGljYWwtYW gcW596SAFofPtuFmZrgHw 4V7ImCpp1TJKt fZyzKD0dpMMbMVpzYi9gj GsbbWsnVX3oBDQdwhmmx7 54PxLhd3umEKFbbAReZOe tHXB3L44ht1P9 DMPwJOBpIDQ5xJX1fV9pu GlnbjogbGVmdDsgdmVydG arWYpuTRccD501DFSssAf nPlBhdGllbnQg NHhnADa9L9YwQldfrJR+P J58ZAAuEH44xATreHNbj3 kypQe3XcMhPUUvMXB0lWc vVPjkk9OgAAVt T23ozSAls2T5JPTkgEuih UYiVbCgtMD8xT9oKVltta yvr4pefzrmZhhqz2tisz2 7tM47J53rWZiw ZHRoPSIzMCUiIHZhbGlnb k3vbW5kTl0+YNQixFC6tU P8kW0lOENqXgS0XGbjZ01 9InRvcCIvPjxj k0mvg2xfgGg0VyN6PIQze xAeuZjcFBW3i3NaLm44G1 9sIHdpZHRoPSIyMCUiIHZ agBrvrl7qbZ0o Ii8+RBXrmUC1mDA1kM2oR tPkIkA6IKzfL533WbYajT ZvDqryX51xV0MyiHE+PHR vFcd7NQEezImm IV8nwOHwUKkoPz5kYWN1Y eMnCjYkYKojE1OzIDJskp vwgfxdePF0TOChZXEpiK4 1Lq2ofJonJMWo dYZKoP3crpbsp0dukihoY cVrXBObHLk4FQd9DCBifI vdLbUeEKN5ZdD3KYI5pEF eiR0ztVljfvvp rG6vP0FhGWTcaakjBz27f O1gJxRfAiZ4CYqlQmp+U0 FPKMCYIqntMZPIK3qcFKd QIM70J4HxRov7 PTAhxGacXM9weXLvZGfkN h0hqCzwdMxjSQ8tXSKjbv xyNYDlmQ6uBDPzjWIcgZl dWZ8uKWFkjrxz a973GuAaBOL5FQXydQSoW 0KrhG3pZiBlHSKoYTJtA0 FwsGEjKVjzX624HIfkAqH 7UOUvktUqM0Ml QCPocZfqZrC6o7M8Yu5fL y3cFH7fPBL0MC65RY96aX Uzy1E8pSV5J7EqISAvnsq rzxvusLJ4ZONc RIEpoB35aKJdWAnsUu2oz 0B9b299PXNbIQLyhI56At 5jpFclMZRetKEMxI9uzyg qd1rnrmfmXcGq MFZwMCh5AXk6ZUWbzQcpI dCoRIO1KgU8IHY4tIYldP 2czGnvuxvmgT5fJvi+NTk pNLWdqtA1S8Ak Bdl6RXTceDgjYI2dqTPgQ DpvRl7xeEccpRwoVE4qHC BfszzjRIVueQ5pAGSyjDZ rpIaiWF7nURHa mjbib963DaWgDIN9RVLle GRwD8TwhI2jOsLzNXZrOC JkG7RwgQZxUUxzM283KPz xPaJ2CEOgxsHs H2JwFZQwlHyyDmJ2v1Y0V u8WZWnUHJ72DK24cYPfk6 B4mQW8W5HqGZPeiypaobr ohCT6YZLuJMUo zG63dIQnXPjzMj9iz4W3t 856XDUkUHMyuV44Bj4kyU dqOEKtiKFIsL2wedygs3c vcjogIzAwMDAw AZq2OGe0IITqyFhfJiFqK UU0MmQ1TSQ4mFTtaY5zxK iirhjlwC3pLbs+QM5vcio fsxL4YI71YQ01 F4KvDnyofEQwnOK+PHRhY mxlIHdpZHRoPScxMDAlJy BadQwoIE3uRs6qKDOfTUA vbGxhcHNlOiBj j3qeIHLaJBloJE8bxHhpV 0PuwOR9DBWdn2c6Ag33U4 7tU6LykCH+URGnqRK5yIS 1dP5vJeXzPxC7 CSsvI679JfVxyPNkPfjpp 1fuc1yoiYr2NoIfOQItgy MnqZmxTPD7p0OhUr67T58 sIHdpZHRoPSIy BIWaDNVtwMjjps0yhZ9bS i8+TGJsoFH3qPU7wA4jNn LvWwH4FYdlT052IpGglIA lHlasG40oE4Mb dXA+GEPgJla6XMDplJceD D6ghSXrOKmpPm3kCBS1Xo KuXtGrADrtH2LaSVAwoqx ylvvyjWX8XVHw JQXnsX09Ek2pbHmnYw1dX IPaHZC7ERYukGNgC2HnbQ 3bAcWkKSAyKOZsI7CihUN iXSikW723LYel GbK1BONvwyEyZ2XtNNUhg SjtAfU0n7U8Xk3OpFkeyB VoGZ9iEbXyPUr5K1LkKfd 3CQXgaHdwMF0o vSEkAMpzFb9sfSletPphL V0qKIOavxnrn512XeEqe9 ddYLIvpPPrUUsiOZH4J26 vv6N2RUGoYKAi GRD4mEU8fP9vlVvbtaige GVmdDsgdmVydGljYWwtYW nyM006YCSbcEruNkMSEyc 5B9VrZlj8UEVj gEtaSA5eySDsKCojKy1uw QqogDmpKW0pXEJtenxmo4 78VsAsm2nxDCWlhWJbQBa iTVD6V13co6R3 PSPkYNEzDOH7hDS1qF9kx GlnbjogbGVmdDsgdmVydG saHZmsKUjiL591LFIjrPn xWu0HCfm9N3Tv Svq5ILIpzXtcHP7plMAvH WjhYb8szDvekEaaWG7wJM Xvomfbf043QyPtj3ijRGD wcHQgVGltZXM7 V63uz0M5SEGlSCLhBVR1d MD2fE8ygFgtrrgzzSXuwH venyXhoEvlFAreDClrB35 6IHRvcDsnPlBh eWVyOjwvdGQ+ZG31xj36R 7HnSgcpQph2ISDyEYG8sX B1pU5uZVVcDNjwb9L3pHI 0J2XdhqPqxv8r b2x (more content not included)... 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 Thanks. [Electronically Signed on: 07/04/2024 08:25 EDT] Kimberly Jones MD [Verified on: 07/04/2024 08:25 EDT] Kimberly Jones MD [Transcribed on: 06/26/2024 11:45 EDT] [facility] Coding Summaryon 06-25-2024 Coding Summary HTMLBase 64 AigxrooeZTd6iMq+PGhlY WQ+XL9ZLVBtV58ykKAoqF 0eQ1HWJWlDDzomBSMAFHt WOtZfijWyIY6xyXXuEDKc IC8+YO8rOADtFsgodUAqx 4M1iEB6P01ezu3fPEnwxU N3MMGvSzVcsfujt5afoGt 6IDcuNmluOyBt JXLauI76YSU3uJ60Rt60v SBqnWMhl8dylRu5AxMzKD VpEOB9lLkgYMybk9ZkWCY zG27yeYWmg9E2 NLXhyDqcdRJwMiHegRB7m W2nGNmgxrprm4gdxbgfEk k1bc04kAAas8V3sCA0U6P udaF1EQUdoVTk BjnrqIXZhV0uqpwjs3aky igdGkDmZPLgBRq9XNw4XS ZitMgbFeAuLL22FDD5KOB eoiJvX7VdOQEd jNlsVgX1u7M1Nz1XW9XMI jatC1QGPBSDMJagkJD+PC 83xh39A4CmXyrwItf0CUB xDNA5xAO9bP0u MUQnPGdrb5U0bQL1Q1Qih nSnpg9bn3tuFHBhCTbmK5 4rbNBxr5X2HTHomPQ7BCO kiPiwLhVjjH06 Oyc+JFJyfTbbc5KhOcgfx 6iky4fnuLm5BhxzGFHkir KfoIchKYX5y0NvOk7zDXK hjQM1zOI2wW7p GwImMjN5DLvnH225TwUso BGmKpejE73kQ3SkvKA+PH PlWpf3QCLdtUaqKI4mP1V hZGRpbmctbGVm mXmaXQ6iBOYtbegkNGKnk I0rVBEhG7x1SjEbLpE1CZ gbD1OqVZRxzdkcPk83kY6 zKlJySdT4JOdw F9SbwxG8MWZabFYzFSbkB OX3X86re6E3IFNvQXWiVY B1hHU4bE0elXizfrotyYE mdDsgdmVydGlj RDqcGEwgT672BMGljMpfC kNvZGluZyBEYXRlOiAgMT AvMDcvMjAyNDwvdGQ+PHR jSXG9pUhtKFFy vHUdBTkjLf0dgFqyfXfxA L5mBKCygcnyDDJsqT2zEY XuyRGakUzvYW5xIUYwmgc ht654KuAqCCM5 PVNmaEWfW4VtoC0jGbVtH RFdTZGiF9RweGMeEBkqR8 68WIraUrH1JYTcdkVrN7T sLWFsaWduOiB0 o4T0Ob4Nx8NjmtbeL6Poj GRhAtJsYpiiLCa9G7EkIo wvdHI+NK30GJAcDV23DVz 2RXN0gIihWNxa KCZtA4IwaA4wUjZtLEKiY GRkOyc+PHRhYmxlIHdpZH RoPScxMDAlJyBzdHlsZT0 mOh0xJIEtECQp aLnipWYwOiRss7ehPTErW UxuXR0ghFzjD7WuhUS6ID Byj4a1Ya75X27qZ0YdmHF +IHBjoID4lPR8 bA5lKiKpShY3JZnpS103U wVwjNJzAzqkm8gac9ugkG y1IcM0IYCjuxZssTonMXO 3c5RmHe51B88w IHdpZHRoPSIxNSUiIHZhb Sgiej1oyB6iUs5+PGNvbC S0jWW9cG3lLeBaNtS8NCl jH576JnWedJWm Nzzks0atf7wdmAv8NhQmH JTsibSzzLzjDOB5w0BkKj 88D2AvjIaua9RrWcf0bq5 8uUTdq4P7rRU8 P3GnIHXreugvnPWdvXcvL Y1zXWOzshcrHUTpcE2eTF TkM7t1MkZwIwF4TIzpC4T friW3BBAhnMMl VVHhoXRQhS8evjtlz4tgs tjwDhNbMMGmZJx7RLp1JL OnpMvcJxIxCUR1FdZ4USS 9eHBadJ7svMpk oksshR0rYqn+CXF5zCSym YPCIU8aXexiuPF+PHRkIH R8jVhsTWmgNLShqP0aYTV aH0h7NsVnBcF7 MGrxE6BtwjV5IMDpmUSxV BPfwRNTzJ6xeouvl8lhvc hfCbSvTXVfWHe1AVf9KRZ saWduOiBsZWZ0 CdB3IPV9xITvfQ0uvWecw cgixB3rJyo+QmlydGggRG I8QSw3J7PpMqc2EFJgfSs qRA6peALkSPmv Ji4azDgamPtpNS7sOVFwc zgha608ThKgh4iyQYXnfB VoALwmZJO9S78ik9R7SSI aUNKdTGR4sXP0 yU5xtPpsaxmnmPBctOlfw cQvgNakRAvfXUjgJ275VO MoaSbiLsTlXTx7W5CrLjc 2RHXgoIthQD0o xLEaOKzxUk4weUrwcFafL O4tCIXttvvgh569KwSbt3 gdYNEuyAMzWUzgAWG9N60 if8B0FAViOFCb XIZ7pNB0xB9uqZncyomtf GVmdDsgdmVydGljYWwtYW dmP902XELvtQeqGfKrpDn 0D2BqFmw8TOVq nZilCY0mjGQbHGcyVt3gu CggtGuiDO5qCRInxvbcz7 85DyQfm7moAJMndJEfHYf uWYK7E86il6W7 HKRmGHUrSPJ9eUN0xI2do GlnbjogbGVmdDsgdmVydG iwPXcoWRxaA738DOQflVc nPlBhdGllbnQg LKieNPr7L6NuVmsneVD+P N71AZKkYK55lQVanKGqa9 iwiYc0FfIgAGUoPAP3rMv fRPecl6FjPBAz M88niHBcs6P6JTSxmSkqh OVdOkXfgFI5eI1xIDrffb knw7vmexkjJrydr6nydp9 8oV76P20vZIqv ZHRoPSIzMCUiIHZhbGlnb e4fzH1zMz8+HZXunBL3jT S3zX2xGIXxPqC9SQahK48 9InRvcCIvPjxj e3gto2dxlWi3TdL2LNLde nTdzLbtQIR0f7RwQq48S3 9sIHdpZHRoPSIyMCUiIHZ qyHbiqa7snS3w Ii8+HHAabRN7sBD3dO7cR bJwTpO6ODmvA766WsGeiR GxApmbO30sH5SktJH+PHR eEgw9XAPlmGxd UZ3zjMTkAPqxEx9kULB4E aUsWcZuVUmsG5XwOPCfan dxsdrycXV3LTZlLCResC6 1Lo5roJqvJBGp xJSTeH9vgsdrt1badocpY zEwRAHwKOg8CZq4MHTvtO gwKuSpXYG2JoM2QPY3pFP ocO0yyUujzvlv hS6kG1XqNDFjjneyXp00v K6fYyDeHbS3HBahWrq+U0 CPNWYLGizpZOTPL1gzUKh ZDF17V3IgFlc8 TISfxSblEV8yjLXjDIlaQ v0oxFolgYiwWR9wUFOtvl lgOLKjjU6uBWFrgNVmuBn mLS8bYVAcroht q078PbVkROP2ZDNgjOWeS 0TktT6mRkLbUNTkRKWoV5 KugLCqXVzzQ152LOhqIkV 9MRUmieIvU8Ww MAWnqNtgQxI5x8I8Jz6fY q6sTS3bVXL1MS05JH91xG Ejg7V1fBX3G9KkUKQeqqz vjyudjYL7IEOw LZWlaU26kSHvPLfrNh5um 8P0l166EHKdUCXkrC96Er 4yrYbnOYEzkSHUpB5ywrg hi0blklxhHrZx REZbKAk1AGs4URVeeGhlT gOyUVR0KqJ1PKU8hGFvpS 0yqRayujtoyY4rRge+NTk mGNNqkxB1E5Wd Far1DKUgyGbcDT6auXWzX YktPq2pkHudoEfqWV0fPA EnwiulVSYejG0pTLBaaJM xyMjhBT6tMEFz fesxn260ShJdAWH4BSDez XDzA8LocP3hYeOaZUEkDX LqQ2PorSHlQOnuT970SLv zUjA1OEEqwrQc V0JcCUXmwJbeDvA2n9I8O d0IGOjVQT66QE60rXKnl1 F2nYO4M7FgBCKhhdywfhs pkOY4CSWcSAJa oG31lCUrCYoaQl9gm1J9n 150WZMdSQQrjB25Zo5qaA dkPZJonRYBiO0zvjyxr0o vcjogIzAwMDAw NMm9ZZu3QBRsuKxsVfUqH BH7SkO6ARQ2pORgzP1tmB utyftliX1vNaa+G2X5N6C kPjwvdHI+PC90 CMCbWO23oRRbnVDey6giv Tn8WvOpHZPfZGM9aNpaLU itp0NnASJzX36fmQIqv2D 6IGNvbGxhcHNl NfHnrPK5dJ0tRTvycldqy 2aheiogComdp6vymz86zD 08X62rAKsgQBHdWQKsIQI nULYgsYsbni6d zA3aSm6+OLNgaPX1xQJ3p V8uZvNnIhV3WRztG195Uy IwkBLbJhwqh9bxf4zpvEv 9IjIwJSIgdmFs qHskRMG3d2ThEd03A89eQ HdpZHRoPSIyMCUiIHZhbG xxsi3elQ9qIg5+QN0rl2l czy16qR62nSF+ ATLnNHT5xAebXCahHJGud L9tETfuHfR0CUBvMkPbkL 67eJJuRRwfKp2bvLgpdGq gPJ8bYGWbxpmh d933JvDwm0cmFSPxlWEtT PacBSS5W27ob8R3UUUrVP BlYRE0lNA0aV0yvPkxmwa gbGVmdDsgdmVy aDncBMnrIApuL374XJPjm YpjYbFgcAQtC8thzuEUEK 1lOjwvdGQ+ZUJbTFJ6bQp cGCahBFYseC1p XSDmV2y9NxDiTvM1VZokW 4LgonZ7XAJkgSHtUTFuaA CGjG1dznoqv8mihpgiOwW sVEVaHPo7QPi0 XVGdjZsrBiVfYUF1GnY0S HB7pLXugR5ciPmkeucxcC 9wOyc+RklOOjwvdGQ+PHR uISG1qTmvFYda ENFqzA7nTFOxW9x7YiQhZ uX0ZDkgT4LbmzL6FFIgwQ OmRGGsbHTNoP9pccpjc9t vcjogIzAwMDAw ZKa5CIw3PHWchHfgMlRkD FP5GkG2XVJ2gMYqaU5irE ltcgeciN5xZac+TVJOOjw vdGQ+PHRkIHN0 jDvwHDroTGUksL1fSCXwL 6x3LxVxVbP7QKxdQ0Qfoe U8ZKIyjJMfUTIgaOPRwY7 tganmv7rxvspm JaYhZKBmUEw6YZk7GXVes MfkVhVwDLJ7VlK5FBR0eQ BsuT9dcUfpckgbzV7oZez +KFP8IVC3GE17 PZ44U8ZaZcbrhEFhhTF+P HRhYmxlIHdpZHRoPScxMD EfRrFruVxqJO4yUf4sZLC yLWNvbGxhcHNl OiB (more content not included)... [facility] Coding Summaryon 06-14-2024 Coding Summary HTMLBase 64 RptbokpnWOr5vQu+PGhlY WQ+KC0EIAPyM79mlDKkaX 3mY1ENRCtNPznxBNSCJLl IArGkztErAT6btXNeKODy IC8+DP2aHSWjXqmnpMXtp 7U1mLJ3K96nii6iOZfbrO B7CNBtMkHqtqxeu6wllLu 6IDcuNmluOyBt WEQqmE05SNZ9pU19Do88m GMuyMYqk3yrjBc3PbPsXF XoNLP6qLwaXCdru2JkKVT oY80ljKNhw4X5 NIEhbFthlCNtUnCxrHS6p C4dWMpblwhgv9xediyzMj s2ih02yVThh0F6uEW5O0K tymE4CEFfdVMo CdrnvCWYcK4ewppmd5pjc gpmTuVeCSFnNTc7VDt0UK LofKqyRdJwIB11GVQ8DHL oqlSyY7YwSZRi vHzbBiS7t3B9Dt7YP1VYB hvzB6YKNTOTLHekaIJ+PC 84nv31M8ClQbpiVec2MKZ jSVH5lFT6fS7d CKGnDHese7L1sKS0X8Tsk sVelt5lb5ugFIDaRFaxQ4 8dbWYbg0B7WWAvpXE7CZG ffWaoYsSwjZ88 Oyc+AEZgtQhca4SpDpigh 9ynw9wpxEi5FmazGHAhkp LtxRlyAOM4c2KxSt6hDSE ygDK9pQM2vT9z MeXhUwG7EKxhM310RnTcl EOhCwnyO21yV2PkvAH+PH SkNzn9TMBzvKjyFE3sA7W hZGRpbmctbGVm qYkeGM3jNDBhcplnZATne T2uPPSnQ4x3OsNjPpO5BC sfS2BsEFLafoxeRr50xH4 gLaYwCyF9EMiy O8ZbedE9JWCbqWExAAvpQ MD8G70oj6S7ZSVnXMKxWI K2lVU1pZ7aiMembflpgJJ mdDsgdmVydGlj YWbfRFdpI333RRGrcFnoC kNvZGluZyBEYXRlOiAgMD kvMjYvMjAyNDwvdGQ+PHR gWCD4cDmqHZBr uZEjMBggQr0viDbivQryM Q8jSVImpnjzLFLtcJ7qGW DvmKExeXffHE3iVBQsmee fp399JfEvYUV9 XRGoaZBsU5HlqK3nWgOhS YTfXMOjW7CkoYHkGYxwK4 31BJwqWfB5UQVaplJsS3Y sLWFsaWduOiB0 t0A7Mm0Ps3PyuqhuW4Hck XCfLbBsUgsfCHw7X4VlRg wvdHI+IX70HXFvZD51LZl 6UCM7cBsaFJuc FMVdN0NocT6bPpXeDGIuP GRkOyc+PHRhYmxlIHdpZH RoPScxMDAlJyBzdHlsZT0 wSe9iDSYmPDEo uCfecPIzElFkq9vuHRXrG GomES5vcRebN7OiaBN4PP Ldi6n4Az93K99jU4PbzPU +PRTicLP7aXO2 cG1iQbRdHoE3HEgpX931R tRzpPSuYnfdq6rmn8ihvT b0WnK5OASargHpqPwrGWR 6l1LlZt78C67n IHdpZHRoPSIxNSUiIHZhb Nkqrw0skS2wIu8+PGNvbC S0zOW7bH5zYaBjFaJ0DLa aA807OrVogPRp Bubdx2rco3ysfSa2TwCeT SPbakVurBstOCF4l0PaZf 87B5GlmXfaw9ZxDzo0dh0 5lRRxv2O8gRE3 P2ObENNwifopsZQjrWyxR B5sJIHaufczMMYqgT9aVK BiX9p1OnGmBbD4NEviU8P imxJ4VUUqvTXo LSCnnDOVqC2homrnp5jve aqmYtHiRWOpFJc4BGm2MT PvsDxdXhKkZWO4SsX6MXR 3aRWaaM4vhSbh uosztT6oZxj+XAX7kLJkf VVPWL1sNupnmSH+PHRkIH Q3xDuuDVzoOSVrdI1hUJM yI4q1SoHrCmI5 RXiaL9SepgO7WBYuiMExW UOxzRQWgF4ethddt1gbxa qiArAqPNIiXSd9LFi6AAM saWduOiBsZWZ0 SwQ8CXS4oCAgrA9skAaog uhgxE4uMih+QmlydGggRG S5VLc3P7EbRnl6XFUdgVg mGK1pwPAqNXnr Iw5htXhskWicRP8dLZBvc qqay363KbGkz3ahKJIxaK HuIXboGDH2E82jc0J3PWG jSNEwLLF3jMP8 xK6epLqfbosrcXLofMugc oCxpShpVHuyBPswF103QA PiaFcaIlKoGBv8R4DsLzr 8KAXrrJhyZC0t sCHmNQojBk8fqNryrQvxS O4mFUMxynsdr833GfYnx6 pjGGKlsKKkEKwmWBP8X42 ck5O8AAWwMEHe FYI1dLQ3hF3jrTloiycak GVmdDsgdmVydGljYWwtYW vcU198LQIoiRkxRyKhpLz 3V4ZyCmg5MWIf eIzvYH8dgXMtBOlsVq4jx BhrjZtgGK7rRSArjlaem8 40WmAre8vqXWNvxJZfBTd uABN2W40oz1P5 CCDgWHQcMFB6kMA0zM0oe GlnbjogbGVmdDsgdmVydG frLVxtECkaE763RLDtxFk nPlBhdGllbnQg ZVhhDYh1R1QvOtmxcFW+P O62MYFjGW96dJJdlKTss5 xeoIr7GoNrLBDpVYR8pDt fYGgsq0FdYVAj E27ycBPjc2L4GAFfbZvvv BNkKdYyxVO2rE3fPPyufh ddz8ieztjhFztdu4qswc7 6gX20G01eRTpq ZHRoPSIzMCUiIHZhbGlnb w5bbJ9oPz0+XFHirPJ2gB O4zG3eYYIvMsA6VMbfN32 9InRvcCIvPjxj f2vjp8vclNy6KuD4WXFen cUrqOqtJGB2b7EjNx25M4 9sIHdpZHRoPSIyMCUiIHZ nqGwoiu3hkO4i Ii8+OULdgHM8rKA7qE2hZ fHpAjK6QQgaU240FnFilV JrZabhN73mL9RrvYX+PHR tBcl5FYIioCvy RM9avVJqRFifZi6qWZU5D zJpTdYaDTsnG2FyIDDdwf rllqyutLB0SYFbKEDquI9 8Wy3mkJiuEVQv nHOYeX5uerlmk9vqsazmB qZsEXSrBYq8PYt0EVDomC ofYmNgKXT5SvT8XOO7wZO ukF5sfZmbctgw mC5gO9XmLLZugduhLr69i S5hFpHpCbJ0WIqrQtq+U0 LUCWKVQibaXESYQ2riYKd NSE55C2AiLge4 LBZyaMwhEN9jsSLlEBsaE a2zlNfinWhpVL2iEVRmbb bpJPDjnF5uIZAmdXCnqKs yKQ5dKWCrbyqx x568VgEpMAT8XBMcgSTrU 9OluD1pXhHnMWVwQTShP4 ThxVVbGSyxM645JVkzGfO 4SPAzylTdN1Hb UBTaqNzeOpR8z8O0Jb9lF n0iAS3gAHX6GH89SU61qC Zkx0K9fGB6Z3JaLVHaiew ysrcqsJR5MVYt BJKzeP11oNUfVWriWm9nz 6A6o700QVNeSJAkaG80Co 5lmRtgHSWybKTIeK3wqhn km2frhysnLnLr NPJdEYz0QAm3ISXkyCnuL pYcJAY9PtL4KAF2sVKmpL 3ffCvphfuuhW3oZbo+NTk eFFWwecB3J8Bz Zbq2WDGkoAjaCU0ggIIyZ QklBr3wlZtpsSogLE0xXT JnjhpgAPRywG0hNRKpbZW omPteFD2gKKCp dpfew123CuRsKIX8BBLby UHxC5RfzW2bLgUiQOKrJL TwF8UtjVRzFRljM172OMi nTiA6VUAygrTb O8SyLJUbkRdvQfL5f5D0M a9YNUiNLV96AW33bEZxk4 Z2xSN9I5YfAXSmmooqafm euOZ2EXSjTQUr nV70lECwHFilQc6av7F4h 882VEUmZZKfaB85Ir8bxN yfEGPzzJWHeU2dzlkii4y vcjogIzAwMDAw XCg1QPv5VTRzjRysIbNpL FV0BuA1UKG1mINgfQ7eaI jsjlcdyJ6xLmq+G5S7J2M kPjwvdHI+PC90 BSPcKC57aFOucODto7yhz Ba2CdWtGXBaAFT7dBmkEL kpz6HlFJVfP23dcZMbv7F 6IGNvbGxhcHNl UxRbgNR9zB2ePDttgkxdc 1jpdnsdGatbt1hnyp81jK 70Z02lLXdyIRTkSQNcORU uRDSfsLnnix7e aD9oYf6+HZZxjMS7kRC0d C8gZjXoBzY2BVbyY120Jo XckVEgYmbfc0fcp2ucgKa 9IjIwJSIgdmFs sUfuUPT3q3XjDa86S67lT HdpZHRoPSIyMCUiIHZhbG ckkg2dvU7cQk4+SN5xp9t zxn86iG74mZK+ RJGpADW3gJgaRBmdXBCkx N9yBRvyDwN5BSJpAeNweM 27rEUlBJlmSl4rsAdjmPp gFM4qOPAttavq f460JjOfw1mpKWMsbROcZ KteQYA8O18dg8J2EUIqGV XkMQU4wJB1eM0cpMsqvus gbGVmdDsgdmVy eHffJZlwFSexE549YLEgm SdiCwMiuGJuQ4lbryONBU 1lOjwvdGQ+WYIiIDC9eJy ySAubXSMcbT7d WDNsU6v5YpOqNvT7PClmZ 0QzcuR8CULdmJSnWBBcdD ZMzU4gjwlpk7ddhymbLpV wDTRiCOr9PNd2 RLBaqZvtTgQuGQM5FqZ8L FE2wZCmeF0pyOuafejgwE 9wOyc+RklOOjwvdGQ+PHR qEAC7rSlwONhu GUBhhD5bXOIvQ5f2NeRoH tF3XLmyH0BribU0HQOmuL SwPFMedMDKhS3iuzvot6t vcjogIzAwMDAw HFc7ROu2HEMuyCupBtEtR AR3VdJ6MOZ2bAIbnG0zjJ dyuktpzH7zJua+TVJOOjw vdGQ+PHRkIHN0 kRhzVYpdFOThxR1lJTBtG 7w0NpPyKdU9XHcbI8Xzaf S2HHEovSXfMNWmsKCAsG4 qzuxsp8fchaig RvDuMTDqLRi2LSu6QQLyc AqjOtXqWOM1XlC2VGA6lL WieZ4amXzjvudavM2sGcu +WKS4YMA2KG69 BB57F4LtPczihXYmcNW+P HRhYmxlIHdpZHRoPScxMD YzWhFtiClnCB3gKv7gIYE yLWNvbGxhcHNl OiB (more content not included)... [facility] Consent Formson 06-13-2024 Consent Forms [id number].. [id number] .00OTGTIFF [facility] Wound Care Noteon 06-11-2024 Wound Care Note [id number]#[facility]-07-2024 Coding Summary HTMLBase 64 AsfabxveOTv7pSh+PGhlY WQ+AW3UCILbD31xuEJttW 1eN4WWWPyXEqdzQDBNJGi FTeZvldIiPC3sgQKpJSAv IC8+PV2jLDLrJznymWXie 5H7bAJ9A06dwu0yAZferK O7FGAdNcLmnvjzc4zdlRv 6IDcuNmluOyBt YNBimJ31UXI0hF93Ct63g QIwdEWyu4szeSl9WyWnMX GzEBQ2mDfzFGmph6LlJZT uS91chLRrt0M0 QRVneVanqHJqHbIhfDF4k I6xVCeomvtju2mqatuxBy v5da60eMRlz1E3rNF9L5C msfW7RNCqaJIj UemjxEJEvZ1hlvsft9oav sfdNtLoIZAqRCj7CNy8DD OxaLmyHbEeFW68UMV4UWW imdJbG4MtGABm uMarGeZ3u4W8Kh4RI8BBE qwdI9IOLMIYEElcwUZ+PC 77rf94W0IfUtsbJem4KQD jNGU0cWA8eH1o VTQsKGqme8R9hZB9B8Xcz dJndu2wl2anVSGlZClsM2 1riVYhk2K8PTOkbMX3FJH pgCbsDfKqxR48 Oyc+YAKasKeaz5VnMonqz 6fyx3kehGk9WoweMGHovu TmnHtiNUJ8y7JyKl2yZPU zjDW6dIH8jX2l KyPwCbG2YFatV073LnUco DVuChqxI10eS9HtzQJ+PH FpHrb0PVKynTryHL1eM2Y hZGRpbmctbGVm aDfjPG2oYKLklpxdFOWtd F1kLSXsC4o0JnXlKmX5DX meR6ZiSOLudektJu06pB2 uApLdBsM6BTbc X5QgznW0DZEwrNMzMHbrR YJ5C71lc7D3RDEvZNVxRD F3gRJ1rV3kuLebdtkerKL mdDsgdmVydGlj PSntJJwxQ362NZJhsNriL kNvZGluZyBEYXRlOiAgMD kvMTkvMjAyNDwvdGQ+PHR uGPI5eFlsJSIa iWFpFJjfXe5pgZctkLrfC W4zUKWyebibNSIwkY1qZO AoiVVusIqiOC1kUQRpzyz dw353IzYjJCW2 LFQreJVyP4IdwO9uBkFgL TWtMJMlK8KjdPYgVHwzN2 08HLdjVhJ6LMPehfHuA5T sLWFsaWduOiB0 f1N5Op2Ef1HxiioqQ0Wtf ANdMvBuOkrqNHs7M8ApXz wvdHI+AY21YRCvQK52IWb 7ECN3kUqpDHet FSNsZ4RcwB9bRaXcIMIkL GRkOyc+PHRhYmxlIHdpZH RoPScxMDAlJyBzdHlsZT0 lAd4aDBBdRMZu cNgztHIiDpNtk9miRAAbB OlnLL3moUuhA3BipYK1AO Cgq2n7Xc57H14iU8FcaME +YNNvnAM1mHF1 kF9kAlZvUlL8IWohQ644I gNjtYCgRlwlh5lnf6rexI d4YxD8STQhxgEgqTrtCQZ 8a2JyYz55A77y IHdpZHRoPSIxNSUiIHZhb Rqbzf9cqX2sZm8+PGNvbC T8iJB8lH5yBwTvOuB8MJo lQ397MaRcpVMw Zniyl7sos3grpAa4IsOtD YQwodTzbPzkCCW1b5CxBg 71S3NriFeqd1OoZpn7se9 3eEIhh5H1mPW3 F6UuPEYlhfeygMGaiOiqL V2wMUKcnlaqHLXkqF3gQS ZvL2l7XzPdOoP4QYqnF8W zftV9FNJfdJMz UCTcaBFGlG0fxucxu6upd jhrQdJjKHXrLQi4KSn4ZO PjvAxgLbLxQEU4SwV4NBM 8cBProD9fqNoy mijlpE2dNdt+RQQ4oIJid KIYLL9eQqgewFV+PHRkIH C5wBlkHFptWLFjqE0pZTD gF1n2XeJxBdB5 PGeuB2DehkG4EVTwkYSxQ BKgvBJGcM2glawzi2cqjt adMyOzNOLbBTu7UZn2OHU saWduOiBsZWZ0 QuI0WKH2rGRhbS3crNvgw chkjX0cFhl+QmlydGggRG W2NIq6C6SzDbe7OHIypQi mYM6wnLEkVRck Iq4hsKbvzYxaVP7sHTRot jrxm230QqGcj0zoBMDkiV CbFCvyBLF5K13fw7V7MHP uTTMvQIV5rNY9 eD9ruWfageuskDOouPipy kSoxIiwYUdkVSxcW412OA KleHutWuEmSPs6U4IsFjg 2NFYihAykLY1j sBUrONabSf8bqUurpXtaW M2pXLTjedibn951AiGvx6 beIHGtlKHkMZjaJWS4S13 bq3X9FGLbUMBd HRZ3tOL3cF9xnHjhsbthv GVmdDsgdmVydGljYWwtYW vwF544CPYjtSpvAaEkcHb 8X1SqSte5EOFq dDbuDB9tlXUcETofVk7ec WztvVdjHO2eWSUgirkvs1 62JzJqp3saJHBefRYeWGd iXEQ7B89eu6O2 FMMkZBTmPOV6iIT8dY8mc GlnbjogbGVmdDsgdmVydG yeTBibHKcbK652ZCPnnRa nPlBhdGllbnQg GUzrFJp1N1LaMeeefWH+P W77SLMbOV26qQQrvRUut8 lipSa0FgGlFYRdWLD3fIu tUUoet2SvJCNo L51ctTKfu6X5OOInkAlzq TEnOiMzmDX2fN9aFPipow yym7adhwqvGuluc7mkvw5 2aM60W13cFVxk ZHRoPSIzMCUiIHZhbGlnb z6tdW0rAu6+IBKczRN4vP V3tP5hHIArRtB8WSsyM49 9InRvcCIvPjxj j8rrl3xqeWg0MwN8OPOff rGihCurKZE1s5SdBi89Z9 9sIHdpZHRoPSIyMCUiIHZ yiXehij8iuN9y Ii8+TQBsaBG3mRN6xS5nJ bQhPmN5UGstQ671WuVwtL RpVglxU89tL6PhsSG+PHR sWnp5QDWivGwb PU1hbFSxFLkwNb4oCVG2D bXmXeUfUEocM8BwVUPeda zbjbzvhKQ6KQKeYNBssX0 6Lz0paVjdSNAt vMTVtQ6qpsqad1zojnwfM uYpRZJhBSa4KAh1DJHczZ wjSiUzDLE4IvX5IKY8mMM obL2aaWquwsvw aA8uC6WhGBRrasxfFe32s L0xOxGuTfF6ETnmYjm+U0 MYRKADQxzuJLLXL9waFHj RNF61M6ZdSgn7 QTCkdUhlIB8bxXRmJLpbM c8tjNuyuQtkCI2kXRSsjf jpCJGajS4sWWUdnAHxjJs sGL8sYBOxlbuu t760WnCjSIE6YVHsiUDxF 1RokX6rHdNjUWJdUQGeR5 XvnLWbZUbiC328PYkyDrN 9VRQwivYtA3Zr TLRctZqkNzX3j5I4Km3fK i5iAB3qFNE2LC14RS77zR Kkb1C2sEN4G3IfWIYmhuh qtnierTZ4JGSs CGJouW98sZIuZQsqKr4vl 6P0p987FQWaJKCkbQ02Su 7goEiwZMNmqNPKnB9fibo wb1mludgvKtMe QPWdWJo4URx6JCCjfHneS mWyOUX0IcF1NIB5pTXstR 7fbCggjdqslB6bLtl+NTk mCEKonvL3Q3Lr Vlt3LPDoyAjeSZ9fzDLbS DkaGi5gjNnqdHmmHU2jMI HzaznpJMAhjH3wEEFgbTV ceAodNM6qIUPr ljwcn924CfAjEVU3CLRuj WTwC0AkeP4eVuVzMUGsUI AhZ8ZieBEyMQwmM954BEx dEtQ2AJIoevZx T9RkQPGhuFvgYiJ0k3S2B i1ZEGnEYJ08LB72lONcs8 R6jQC2W0ZzKYTdttapgzn kqMI2XQXfYXFi iR95lJUzDUfbMx5mz7P1w 943SGYlWCEqlV46Or4ggY vbXZItrFQMgO1lqmsxr6o vcjogIzAwMDAw IBn3XXy1UFFkyBbnOkPcA PJ6EwQ6BJY2zMAhxQ4yoX hoqlrpfJ5gIbc+R8R5W2X kPjwvdHI+PC90 XXUgVI33mOCcfDLzl6pvs Nx8VxUpIILyWDM6vNonJP hmt6XbAGNuS89jgHJgt7F 6IGNvbGxhcHNl WrDqvQI2dU3wWTjsvkkig 8jlmxfdZqgyy6dynx41zU 79H49qOWkhRPLaAXBoDQL sWHJrhIwwfd9j xO4pEm2+TJBjvCN9zNT4c X6eHhYuFnB9RVcoJ467Pg TzvAXwIgkyx2clx7dywVf 9IjIwJSIgdmFs tKghNWI2u5PiVw60S94bI HdpZHRoPSIyMCUiIHZhbG zlef0pvZ5qYk9+CK5pb2v maq02nT63fWH+ IDNgJLW1fOnzLRdwXJChs U6qVBurSgY9QSIuApQtrC 15jBLrUAzeZb5tfZbmrFi fHT7hOUMbzvnd a027IyPvi8gsZJXsxHGhR KbeJQB5C14qv3K1DDJrPC UcAPS1jTL3wI6jhYkeolf gbGVmdDsgdmVy fVrxPXauTPoyK061NWNnz YxhYhDzgBGyM6kbdrQCGA 1lOjwvdGQ+XANqBNA2iQm mDAfnICYxuU8b OIKwB7m9AhCcXgI3BMmbC 3PbxrW9CJLcoMKfPFFmvZ KSwU2mmiehp0bneuvnLdI tNRCcPIb8LYe9 ERQbhFgbYjZuCWD5HsM7H VO2wMNtuZ3oiZhioezlhZ 9wOyc+RklOOjwvdGQ+PHR tBKE9dBksPNnk UDBqrZ0cFZJvR7y8OmKmM gZ1VCbiJ4KyaiF3ZZAkpL DcEEBfhMUFnB3lwjqwy1a vcjogIzAwMDAw HCx4BNw4NADxpUqrYvMbZ UW9KrM8TAU4wJTcpR5hvN saofyavQ5yLbx+TVJOOjw vdGQ+PHRkIHN0 dDhwAEiaTBOukD0oQFJdQ 3i7OdEdFvB7UPioV9Lfzk T7DYXpnVZtVOMqlGFMxT7 gkhqtz7kddfpp CvVvANZvFXt7SEg1OXTrj NgjKySgQWJ8JyQ5XQV4pT BvdC9ptVmuebhbmJ9bMgr +QZT6EJI7FV03 YA71L2KnOuhcxMMhtAE+P HRhYmxlIHdpZHRoPScxMD MfPdAwbXxfFJ0fHa5xBQL yLWNvbGxhcHNl OiB (more content not included)... Normal [facility] Office/Clinic Noteon 024 Office/Clinic Note Patient: [...] 139.210 kg Body Mass Index 40.67 kg/m2 [place] Body Weight Calculated 79.52 kg BSA Measured [...] was normal.. Impression and Plan Diagnosis Diabetes ([id number] E11.9). Plan: Discussed with patient we need to get him back on Ozempic to try to get his blood sugars down. Also that he needs a follow-up better diet. Prescription for Ozempic 0.25 mg weekly was written. I did discuss with him possibility of also going on insulin therapy. He wants to hold off at this time.. Orders Orders Evaluation and Management: 88843 Office visit - established pt, Level 3 (Order): 06/07/2024 10:19 EDT, Qty: 1, Diabetes - Neck strain. Diagnosis Neck strain ([id number] S16.1XXA). Course: Will try different muscle relaxant using baclofen. Also a steroid burst. I did discuss with him the steroid burst over the next 5 days May exacerbate his blood sugars.. [Electronically Signed on: 06/07/2024 11:36 EDT] Balwinder Miller MD [Verified on: 06/07/2024 11:36 EDT] Balwinder Miller MD [facility] Coding Summaryon 06-05-2024 Coding Summary HTMLBase 64 QkoaxwstPTs0gUs+PGhlY WQ+ME2XALFsQ12pxKHiuS 0gK3GFOKcNMpqxVMCVJZr YDsVehbBuXG6onJAyPLNx IC8+BG0cVLLyMnhqdRYjs 9Z1lHO4K07nfr6xWZnxaJ W6CPAgQmOxltktz5wnjBu 6IDcuNmluOyBt AGWyrH50ZSU7lC60Jq05p OBjfRDmn2asqAv6ThRyRZ CmWVB8iOdoIFdul4WfXVL oF66vnHEqv7P1 HCSuyQkidDUfLnHfuSI8x P5lLMaffdpjq2stvhrjAo c9bv73wEGwq4C1gKI8Z6R spkM5EHPukMQr KqojiSSMoZ8nlhdmp4vtz ptcOuOsPPEsEOs7WBb2GY PjiWouYrGpCT65CMN2DRO wntAtE3TsTIRx rLmqCmC1y0S5Ue9OF7PUH dsgU6AQDADLCRpvfKD+PC 41nv37Z9LwNkcnWhb9KEB bOAR9nQF0xO4v MYDnHWrrc3M5fDD3J8Ehe cMrrb2lf7kaKEJqRBkmX6 2ztJFgq5O9GLUlqQW2TDZ ycPbcCoAgcG15 Oyc+ZWPmoFzdw5UqNpyvz 2ska9rqiQv0UfqnPZUzmv HxrZhhSPM4y5BcTm5lFBI etHP3eJK1gX1f GoAiJjY3WZkfY116LcDna SMrUdbhQ59fW9OefBS+PH JaHfi2TFCrzTlcTJ1kA3L hZGRpbmctbGVm gStuFK6lBJJcegpdXPLrx U3fVILfJ2g9NgCmOiU3MC jkR4NsSZMfifwfUf44kC1 wFvZpPnM0BPly E6EousO0QMZdoXFlEAopZ WM9J75fy4V1YKQhQOVfKN T0uQT8kB8xeUguiqllaBM mdDsgdmVydGlj ZCecPXocB693BXTzcKvtB kNvZGluZyBEYXRlOiAgMD kvMTcvMjAyNDwvdGQ+PHR dCEG2qXttSYKj fWThHKfqYx0amZsfiSphG N7qCAZrjypaPDEalC9sJT SpbZZvoLwpEF7jQQHfedi es048AmQhUPC7 TGUmdNRmT5ItnP4yQkDsF IPiTIXdA2HxuISvWKuqU8 98ANpbVyV5BRRnppItE8Z sLWFsaWduOiB0 m8S9Ms0Hg3DmrhiuS3Qyf EVbSlOfRaofFXg9T8FiJh wvdHI+WI01EHRfYG75ZGw 2BYQ9vPqpBQlr DEEvO6PkqN6gXoWmSKTkF GRkOyc+PHRhYmxlIHdpZH RoPScxMDAlJyBzdHlsZT0 mYo4cNMByUJJv bGpvwGXuKbRus2szUVDaJ BlqXX3vyDmcR6EekCU1PT Kon9x7Wj25C18oL0ChqMM +KDAvkFR7zUU0 aL6nEuXwHaP3THlmV688V qHyvZKdGipda7gmx6cdxH s3XbJ9JLTghkSgeCvrJOD 5n6RwTy98Q75a IHdpZHRoPSIxNSUiIHZhb Pwkri9ibC6eXy4+PGNvbC Y2kNU7uH9yYeOrIyP1QNx qM319KkHurZEd Dswde8ykx2rblKd9MgRjT OJemuSgdVznGCB1i3HsFq 47G1HljMqco7UtBek0vw4 6oIAhq8Z2mRH9 B1AbVNSbbptsuZIlzLbtO B1rMMCabhcgFDNzuL2nGW VyA7w5PwScDcO0DUlpY4I aqoQ8PGUdhORn XJSgdRYLqU1cajdyp2pgn ojwOjTaRUCxYIx0AZe9VE KvoAzkAkHnMUT9OkP9TMO 1zORwgX1qlBxw fhgxeB9fLqb+VBL4pDPfp VBRXS5nVfcscFS+PHRkIH Q1xRmbCWrzCWPltZ3pBZY vJ2u6RmHnFgZ6 JWijF9RzjkN9HFZlyKHqG RUauLVHaD7ntqfif3lvlg nsDjOtALFqSYw7AXz3CVS saWduOiBsZWZ0 GkV7WUR9xEXgtV9dzNbvl gmyjV8iCqc+QmlydGggRG U0RIx6Q3XnBra9BOGfdMu qBB6cuAReNVtt Hr2fgVjgqZuwOY7oXSXnt kcoz805MbWys6vdFTGzpO QmMXbrGEO6P04jk6V9BXP pKPZxTJM9jRF5 eX9fqDniumpytIMkuWlrv qRvpEbkEQffIHbbR030QA PkqJboYeVgRPg4K0JyQso 3AVWrdSiwKR0c cBDbUGloBo5snDcklLwyF Z0kYKVjsjjps269YvLlv8 yoYEWgoQGrDYwoXAG6Q86 rk4R9TTEwMRYz WMQ4wIW6fX3rhYcevjvdm GVmdDsgdmVydGljYWwtYW prC719FAPpeEaaLoSrpKz 6D0WcVwy8QFEc bLuvEE6vzFVcKIwwTa9jq YnkePylGE9eMWMcwpgmj2 50MdWlk7dvCIGetADdMNr cTDG2J53cs6D4 HDXdGNWwRGJ2jUZ0cP8cb GlnbjogbGVmdDsgdmVydG ajXGamGFbsK126KANqpGa nPlBhdGllbnQg GMebWKt1T2QwZpoxbLO+P K33DXMtYS40rCJveQUrt5 rnnQj1TpAfJKMxZDP3qWj yWHdsc8RxZKSg O88mqKFrl7M9EDAmtCkfb RGlCkAoaTY5bW5rJOmfbr cfv6gofnliTkhrc3kedr9 8rG73Q34uYOha ZHRoPSIzMCUiIHZhbGlnb l5vkR0oNn8+GQUsuZX3eG R8xL1kCAByEuR2PJmfF86 9InRvcCIvPjxj g7szj9cxlOi1HnK8OFVqp iWrzSvuXZS7v3IvZp94V8 9sIHdpZHRoPSIyMCUiIHZ drMvukp0jfS2x Ii8+PMYkeOO4bZQ6vP6rM tYpYcK4VDzjW327FcCllN MnMwgyE70dJ9WkpAV+PHR tZex9GRXdbRzu OC9lsTJaPEqtOd0oOXQ8R sLuZoEhFBkeM0KwZAVtlg enrfpoyQD0GCCvIIXosO0 8La7tzMpxUDKg eFRFhJ8akoigq5exlfubJ xUyIMTnGYr5DZb4BUDoxX ttWeIyRNS4RpU1FOQ8zMZ pqL7xyGwxzdjq pR7pF8CtMMMapxbhSf74g S4qZeDfSzL4TYhmRjw+U0 NKUZCCHadpTZAPI0doQWo QGA38Z0FpAxl1 BZVopFpcJX3wcKNpNUcoG l6eyNrpeGeaYN3aRBDutw ufDMYejU2uKXNrzLOezGv bIF2jOUWzhdek k805UjAfNCV3RHNkfDDoU 8IbfE4iZeRoVLYvANCuZ5 NtoTQyTBkzC021AZggXjZ 6CMEjfeEzP5Hw YOTwdBcxKaZ4e3B6Yo4jI y8jZM3lENA7KB78LT38rY Ned3Q9xQA8H0QnWALyhiq qwwmbdJC5OGFc SKCpmR89mMQgWZetUx3mr 7J1f585XUQmNWEksW16Vp 2qeTohHKCtcHRExM8tgpm ts3mpvtyjJsHw VUTzSNh6SRh6QOFauYsfT lHkBLM7AmU1EGE7wNCwfH 5dmDjnymsddP0iUpm+NTk nETWtyoO9H6Hs Mtz7OGThnHhuSS0peJYoD XkmGw3deRkvdEplHG2pRW VmrhelILWxjS0eKKPyoKF cwXoaUX8zYQHu slhjx743LeBdCMN5WVSuu EHjV1GndG1nAhXeVIIuLX OeW6MvnFXzVHivZ918UEi iGsO7XBHdjyYz Y4YqCAGvqNdsVuD4n3K8O o7CZFuOYK88EO43qIMst1 O8tIF5X2UhCXDjeuvchpl zbRV5BTUlUCNf vM89uZKbKGceSb6gp1A9a 548PMZqKDDqjG25Af5xfH ioIAMooIXRkG2hnwpqf5q vcjogIzAwMDAw XUi9ADx5WNOuqBqxSyKiU UM4YzI8VWF3aDXmrY6ddE jtuijfqO2vPxt+J6W9H8I kPjwvdHI+PC90 TEQxUI72eZQffYSdz4khs Kk1NwTuQOQrKXV7sYyqWA ija5MqKPTfC45qyQVgi7U 6IGNvbGxhcHNl QzKrdAO5uG8dSIajulbei 9uvnhpgRyuva8hmku44kG 19R35aSKmpBSCqZOKoFZY oFLHsoKknpq0q fZ4nJl3+YKTseLU0eME4t V9gYvHvUgV6KMygX607Vj TskSRaPuahg6nmc3lyyHd 9IjIwJSIgdmFs uOusABJ3s6SqRe94H50bG HdpZHRoPSIyMCUiIHZhbG yjmx3keQ4yLv9+GZ0oy2k cbz87jE34iZF+ RJEmHHD5eYpiPWrcLDNmv V4eXRqxJyY2UFStUfQveP 04qCSrCSfzUp0wxDqeoZy kYW3aSJFurzay h383SlXcl8rvGSWwfMRkG UljGAN9C04jt5J3DZZeHN TuXVN6oHN3gR3bmLoxnmf gbGVmdDsgdmVy oTlbUSnqNGapT594JHRwn TfzQcVpzWEsB2htbbCXJN 1lOjwvdGQ+FFGcPWT8aPj bKJywVATzuW3x SIAlJ8d3KlMxTmU5JPlmN 8DnjcJ3KRXcpTVcJVJccE NUyS3lbrfuo9kpitgkUgG zMEHwZCy5VLm1 RSRufCibRpTqCDA5SaA7Z FE2aAQwaD2byGprmzsgcK 9wOyc+RklOOjwvdGQ+PHR jEKB3gRcdYLmx SHFciE7nRBRxW7h6ZbMtK tD2MOjeU3TeyzD5XWAeiA AvYGXqwILAuN2jrpkky6u vcjogIzAwMDAw HNu8AFx5OWCwiOvdNxEjQ FN5EtS8BKM2dHSvoA4seK uxfzmvnA9jIag+TVJOOjw vdGQ+PHRkIHN0 dLybYRyfDSKrzR8fTUVrF 6y4CxHrBoO1FJkrW9Yxbq V9WIWkyDSaAUUroNDDpV8 unerqj7epwtyv UbCvILLoOPx9SXb9CFMtq IoyEvTlRHZ4LfR5TTQ3vL IscS3uaTlrocrvtD9fSgr +HBL0PWE9DH18 MO57I0RvTuwgdNJzqRU+P HRhYmxlIHdpZHRoPScxMD LxGnSyxTqiWO8oRz8dAAZ yLWNvbGxhcHNl OiB (more content not included)... [facility] Wound Care Noteon 06-04-2024 Wound Care Note [id number]#1. 00OTGTIFF [facility] Coding Summaryon 05-22-2024 Coding Summary HTMLBase 64 SycvqhrrSYp7vIz+PGhlY WQ+UJ5AUGFcB04ygONnpT 9mU8BBZIqAHyihFQTZOTd UWuRcqnJhRU6faERiFXDv IC8+VJ9sTQMdOlcasUUuy 8N7dDT9N90ftf7cGUlywZ P7BBObUpTikrqbb5fuiWf 6IDcuNmluOyBt ACLjrB43BCF5mT75Zz76s FKjcGHro4nnlGr6XnMiKF NvBCT1tNoiPNloe3NyKKX oU01mrSWgm6M5 LKXhaMqxiYKxExFbsRL0w T9sVFolwcdjb5wjrfbmRb v9zm11nVVhb3D1mQM5C7D ptqI1YCTwiEIe ThfhnXKQaH8fhhqnn2bpk jbqUcUnQBNnGPc9CTi2RM VlcXqqZqMtFA02TNZ4WFZ sdiHrT1DzKDQe uNjsOnM6q4P2Sm2HU2BNX nydL9ZZXVTCGOoygZX+PC 66gp88H4UgMkmmRjj7RZK tWJQ7xLA5kP0y WVQlFDvku4D0hJQ4P6Lvs dImfl0zy4qdUKAoHWeuL6 5tgDRem0Y3YFDhqPI4FJT sgPatIhKfdG12 Oyc+FEXmeEtwh0PsIvbxx 7fyy7ehbUd3SrgrVOBoir EwlVikZKT2q4RqDu9jCBG xjTD1bSW0jC2i YtNdGmZ8ECmnH883GrNwj FOnOcqbH26dV6WowXG+PH XtWau7EBGnhPxaDA0eT2C hZGRpbmctbGVm pUgpYF8rJZLyznmaYXSvp J8uQFTrW7l0RnFbQeK5BH ztC2VcDIEgmcmxKr86zR8 xQlMgMbS4FDmi O7VjuwR8IDQvyMUeFNsxZ NL8L71pi4W7HPSxBLXhJY P1iNX5jQ3wcYxwrkayyPB mdDsgdmVydGlj WLolSRmwE753RIJgsMfkU kNvZGluZyBEYXRlOiAgMD kvMDMvMjAyNDwvdGQ+PHR rNXX4cRpmSPZv sWWhFFkqNh4whEtvbPosT Y1xBZFgqoeoNRRcwV5zJU WnfTPbxDwgWF6lPEEorbx xh213LiQoRXI0 CQLqcKXoL9QefL4zZaCnX QJvVWBoS1KnoPWkSTrxA8 59LDczRqX8UJUfrrXhT1A sLWFsaWduOiB0 e2V4Gr2Zs2ObmnloB6Sqo TBeLwDfImnlBSd0B5JlEr wvdHI+OB63GOMjBE88IOf 1VFO7yUrvAYlr UZPsL1YhbF5qJgWrQMVbX GRkOyc+PHRhYmxlIHdpZH RoPScxMDAlJyBzdHlsZT0 tVn9vQIFxSDIl uSlayEKhYrUbe4dhFTXdP RhjFX6ceJytE8CrjRO3OJ Hvx8c3Dk41Z80mZ9YcsHF +ZOHalCM6tGA6 oQ2pXrIdMbN8PJpbR020Q oBssOFcJiptb1woy9ymqW q7BiR1IPRuihKqxJmjXGE 1h5ZaPf50N53u IHdpZHRoPSIxNSUiIHZhb Ednpn6deZ6xSy4+PGNvbC K8lNB0pU3lVkVrAyE7ZKl tC753MqSvaUXo Xqeez0gcn7gvpIj7ReFiX JNyzbObpConIDT6c1XhNn 11Q9IeyTbuc8NgBnj1oe4 2jHOvb8T5xVA3 D6XmIQBziujpmFZwmUtwH D5tWAVewfnoTFOasB1yDB XxI5p2RcCqKzX9AUtxI9R qjfX3ZYDsyHLd CLPcyEPSoO1lltisv8eut zqzVfGxRRJsUMr7AYz7CV WqlWpdJyZvQDD6BgG9YMI 0eCHuhV9amQhj ystrdQ7rMei+UOJ0lJWni FJUEB2lEkvyjEJ+PHRkIH A4lBftFMusGXQnkZ7hOWB oD4u3KyUjGlT2 NAxyB8UzsmD1DPUoqCQdG DJlsYGWoI0aooetu0qdot qaHbMzVNSsEYa6CZo9ONM saWduOiBsZWZ0 SeU4KOW8zXKeoX8jgYtlo xpfjJ4eHvk+QmlydGggRG X6VVw4F6HvEys5CFCukNr iUT1mtXNnHZas Wu5efBklgXhvHS1gXLRsp razp135JuTxg9nyWZAtcQ WfHMtyHPV6D92bd8H5DZQ oOVOsMIZ9jRY7 jZ1ttFnklznwiNUtrDnmn nOkcOxxXLquVZbbE260NM ErqZgkJuEnNZp2G8PeTka 6WMQuiFglWE7b eWDiGTwgFi2hbAwkwHxqH U6oRLCbdlaje350UaJyq4 eePHPciOAzHWxtRRV4X15 xq4H2INIeKWEr SAW9iHH0mX9kmQfffshdv GVmdDsgdmVydGljYWwtYW nhS469XCMddCrcIqJgzDf 0Y2PzTpe6GATf xXfxPL1xtZInQZdmSl9yn VezfUupIE2yLPCwhbgie8 22FnWoj1syKMRdkXHdBXa kYLV4N76ic8S0 ISXcTAWbCHL4wWF7eC9wr GlnbjogbGVmdDsgdmVydG nvUTckHDxsI858ACYojXk nPlBhdGllbnQg BFzmKVb2P9EyUcmkjQZ+P L24FBMqKF94iVVgqEQrq7 hxvMr1GxVdHONsISE1fJo uQBfzx0HiZRDs G44liJGce9B3MLNtiHmam NCoPkIjsAF5fL5cMMqbsd gex2eivzobDuzlp0tumk9 3sG00A10sIEva ZHRoPSIzMCUiIHZhbGlnb a1ldK1qJe5+NCQjxOR5tS T1sL6hDPMjJzA4YRrjC34 9InRvcCIvPjxj f8btu7cllEy3DuV0QSEpm aUcgKhnOEG3e1WjPm37V3 9sIHdpZHRoPSIyMCUiIHZ vqDjwvx3ucI3h Ii8+BETmwDY4nDJ4uA6rG pKxKqI9SWmcC858KlTvoH DzDezdJ50hU0CskYO+PHR jWgn2SCLugQyh UJ0ezLTePWgiQz5aWUP9C wCkPjHuAEpoY0EpYTUapb uxludguNR8TWQiUYYhbU1 2Si7gbZmbIMZf kRMTeA1nbthdx6tnemolG cZyOWOxNQh2ENm6TUZczV slCjSmEPF2OsU6TQH3aTK yrN8mtKqtvubf wC0cS7QaEAGqbofgSg08x A8rHqTqCuU0MReeRhl+U0 YAAUVHOyokUBWNM0lrLIm APU77W7NxXbf3 JNJrdUbjZP2ljDPhBBouO q9ftMikcKbeCI7kCNXxqc atZVYlkF6jAXWlbLUieTk pXS4dSBXxnrza w736NdEgFNP4QYBbkZErF 8ZxjX4zFbLnZOUcKJDnA1 WfqYZhTHezF710YPhfItB 7HVVxaxRdF9Tq PZIfkFugTsG4b3H1Pz7kP t6fMU4sCEX7TP30FC57hG Drh8F7aKE1B5OqWRGauxd oqugvdDO3EBWe EAMtlA12oDCoEDuzKq4la 0N1g095WJCxVAIbkA60Xx 3iqSqjFOMnxDKKxI7owuf gw4wesddrZuRb MUFxUVf4ZDx7YEVldHhqU bYyINV5GxP5QSI5cUIbrQ 1zsCwqhnqflJ4oEbi+NTk oHSFiuvW9H7Ke Nff1ZVXtkKmvYK0mmBQyS FkpXe8vgMyxnFfvHR6hEX UfhsilWKKlfS8wJVLsuSW yeTmzZW1lUWAt bnisb823JqZxARP3AOBhy LVmI4YrzO8cBvBePBJgKY BlL1WpiJLySMrbR518HAs jQnY9HNQosgSe N6LzKKMydHkfRaS5p8X5D k0HFIoZBY89GU54jOWxm5 E0vNF9L6BpGKSgnkgtiyt taYC0TOZgNBMb zN13xZImHEhdTg2ci0B9w 507MNTdEZYpvI86Pv7qxS evRJRnmOYHdW0dnnbbs7x vcjogIzAwMDAw LTx7ZOm3UELjkDnjZbKuW BG2DqV9QZM5kJQweA3kaF ujcpcbpK5aWdm+E6Q3J9D kPjwvdHI+PC90 XXHcYD41dIRrzVHia5cie Pc0IyNdREScVFI6iLtaHL xde8GxXDThL96zmLSkb9G 6IGNvbGxhcHNl AmGswII2aI8mTGfyfimsr 2jxieowUawec1pdfi82xP 30V58zFAdbPOWlPNJiJUY bFQPnrYxzrq5z dP7rEi8+MRNzkNP7zTT1s V0iUvWtXmC6TDuzR087Mn QaqAFlViiyh5spf2kctPp 9IjIwJSIgdmFs fParRGC8z6FnQu35A30hD HdpZHRoPSIyMCUiIHZhbG hzrr3msM2aCv7+MT1ar9o kqk13sR92wGR+ HPVcISP3cJihWNwuZAKrj K1tEAuuFcD0WUPhYzOroS 78nPIjWVeoCs3bfOmvfMj iZF8eEGOwgznt f146XmNut5ldBXTgxGYzM SbeUWR1O54cg0U0RGGnMH AsDTX2dYZ8iE8adRufthd gbGVmdDsgdmVy cCvnVUlwCBoaP280IEEbi JqpSyKkgEOqJ0haiwBZRI 1lOjwvdGQ+VSNyVAS1qYj lMCyyJLTswY4q ZSSlF2b7NuHlFdO7TGpmO 1UmbqB4AEWzbRIrNIFhvJ LWtO3hxqlts9kroxxpQiB uPXOjVQk6TZu9 TITzrDsyYcZpMVG9SaL6R BH6oQTywM6ebKfzfwqsmU 9wOyc+RklOOjwvdGQ+PHR fHKY4fRteBAzl OMEloC3tXGQzH1n3WgUpV iR3WAdfH7IjfiZ3GQBzqK ToNAHlgQKPuH2nfntjr7r vcjogIzAwMDAw LPw4KTe4ZRLlwFooRkFmP NE6KvE2MVO0cVOhxG1cnV yiiznspE8iGho+TVJOOjw vdGQ+PHRkIHN0 uAczYZnvVGRdcD5qIDDxS 8g8PiXuOuP6FPoqS9Swqt X5NNJnvHQwNLAzuWRPpK4 nzehwz0wubdcf RuObPJBvUGs2SGh4GDZrm UxcRiSkDIC2UcH8WVF3wY MeeA2waDkwyexomR1lHjj +LXN9KKR8LD23 TK90B0MmDuriaWXnvGT+P HRhYmxlIHdpZHRoPScxMD AfUnJbtQoxVB1pJu7qLYG yLWNvbGxhcHNl OiB (more content not included)... [facility] Wound Care Noteon 05-22-2024 Wound Care Note [id number]#1. 00OTGTIFF [facility] Coding Queryon 05-17-2024 Coding Query I just wanted to double check that your final diagnosis of diabetic coma is correct? Can you please review and revise however you deem appropriate? Thanks. [Electronically Signed on: 06/25/2024 11:34 EDT] Kimberly Jones MD [Verified on: 06/25/2024 11:34 EDT] Kimberly Jones MD [Transcribed on: 05/17/2024 11:25 EDT] [facility] .Auto Diff 1on 05-11-2024 Auto [place] % 8 % Normal 09-30 [facility] Comment on above: Performed By: #### 2 [id number], [id number], 9244915, 85901062, 6625674, [id number] ####[facility] (DEFAULT)[address] [place] [address] Baso Abs# 0.1 x10 Normal 0.0-0.2 [facility] Comment on above: Performed By: #### 2 [id number], 4649101, 0173387, 18975631, 3479653, [id number] ####[facility] (DEFAULT)[address] [place] [address] Basophils/100 WBC (Bld) 1.3 % Normal 0.2-2.0 [facility] Comment on above: Performed By: #### 2 [id number], 6251728, 8329202, 03520371, 0523742, [id number] ####[facility] (DEFAULT)[address] [place] [address] Eos Abs# 0.2 x10 Normal 0.0-0.4 [facility] Comment on above: Performed By: #### 2 [id number], 7161809, 1794525, 08689694, 7453862, [id number] ####[facility] (DEFAULT)[address] [place] [address] Eosinophils/100 WBC (Bld) 4.3 % High 0.9-4.0 [facility] Comment on above: Performed By: #### 2 [id number], 9365051, 9939429, 53794097, 6543220, [id number] ####[facility] (DEFAULT)[address] [place] [address] Lymph Abs# 1.3 x10 Normal 1.3-2.9 [facility] Comment on above: Performed By: #### 2 [id number], 8610610, 9020006, 55121087, 9740337, [id number] ####[facility] (DEFAULT)[address] [place] [address] Lymphocytes/100 WBC (Bld) 24 % Normal 14-48 [facility] Comment on above: Performed By: #### 2 [id number], 5133607, 9978715, 97683387, 1239891, [id number] ####[facility] (DEFAULT)[address] [place] [address] Linn Abs# 0.4 x10 Normal 0.0-0.8 [facility] Comment on above: Performed By: #### 2 [id number], 0436203, 8161147, 02726530, 3798365, [id number] ####[facility] (DEFAULT)[address] [place] [address] Neut Abs# 3.4 x10 Normal 1.5-9.2 [facility] Comment on above: Performed By: #### 2 [id number], 8371979, 4311962, 16614828, 5293498, [id number] ####[facility] (DEFAULT)[address] [place] [address] Neutrophils/100 WBC (Bld) 62 % Normal 44-88 [facility] Comment on above: Performed By: #### 2 [id number], 2254667, 5327338, 34612465, 5095428, [id number] ####[facility] (DEFAULT)[address] [place] [address] BMP Standardon 05-11-2024 Breakpoint Chem Normal [facility] Comment on above: Performed By: #### 2 [id number], 3011926, 7230510, 95794150, 1106083, [id number] ####[facility] (DEFAULT)[address] [place] [address] eGFR Non AA 36 mL/min/1.73m2 Invalid Interpretation Code [facility] Comment on above: Performed By: #### 2 [id number], 9841734, 4108356, 75265477, 5971812, [id number] ####[facility] (DEFAULT)[address] [place] [address] eGFR AA 43 mL/min/1.73m2 Invalid Interpretation Code [facility] Comment on above: Performed By: #### 2 [id number], 1243023, 5082672, 49557887, 8320726, [id number] ####[facility] (DEFAULT)[address] [place] [address] Anion gap [Moles/Vol] 11.4 mmol/L Normal 5.0-19.0 [facility] Comment on above: Performed By: #### 2 [id number], 0660133, 8569667, 06692593, 6404538, [id number] ####[facility] (DEFAULT)[address] [place] [address] Calcium [Mass/Vol] 8.4 mg/dL Low 8.9-10.3 [facility] Comment on above: Performed By: #### 2 [id number], 1890101, 1661349, 15134700, 8541445, [id number] ####[facility] (DEFAULT)[address] [place] [address]135 Chloride [Moles/Vol] 101 mmol/L Normal 101-111 [facility] Comment on above: Performed By: #### 2 [id number], 2293881, 8602129, 60959954, 5486060, [id number] ####[facility] (DEFAULT)[address] [place] [address] 10018 CO2 [Moles/Vol] 26 mmol/L Normal 21-32 [facility] Comment on above: Performed By: #### 2 [id number], 8554751, 3052347, 71184094, 1579777, [id number] ####[facility] (DEFAULT)[address] [place] [address]378 Creatinine [Mass/Vol] 1.93 mg/dL High 0.90-1.30 [facility] Comment on above: Performed By: #### 2 [id number], 5135433, 6993163, 39435984, 9203197, [id number] ####[facility] (DEFAULT)[address] [place] [address]647 Glucose [Mass/Vol] 337.0 mg/dL High 74.0-118.0 [facility] Comment on above: Performed By: #### 2 [id number], 0025974, 8494540, 78996576, 0565836, [id number] ####[facility] (DEFAULT)[address] [place] [address]74 Osmolality 291 mOsm/L Invalid Interpretation Code [facility] Comment on above: Performed By: #### 2 [id number], 2031974, 5129673, 89505033, 6398811, [id number] ####[facility] (DEFAULT)[address] [place] [address]337 Potassium [Moles/Vol] 4.4 mmol/L Normal 3.6-5.1 [facility] Comment on above: Performed By: #### 2 [id number], 0268981, 2909046, 18565517, 9737757, [id number] ####[facility] (DEFAULT)[address] [place] [address] Sodium [Moles/Vol] 134.0 mmol/L Low 136.0-144.0 [facility] Comment on above: Performed By: #### 2 [id number], [id number], 8642568, [id number], 9062337, [id number] ####[facility] (DEFAULT)[address] [place] [address] Urea nitrogen [Mass/Vol] 40 mg/dL High 8-26 [facility] Comment on above: Performed By: #### 2 [id number], [id number], 2984039, 02640061, 1077014, [id number] ####[facility] (DEFAULT)[address] [place] [address] Urea nitrogen/Creatinine [Mass ratio] 20.7 mg/mg High 4.6-16.2 [facility] Comment on above: Performed By: #### 2 [id number], 9738566, 6219418, 81675501, 3474634, [id number] ####[facility] (DEFAULT)[address] [place], [place] [id number] CBC w/ Auto Diffon Erythrocyte distribution width (RBC) [Ratio] 14.0 % Normal 11.5-15.0 [facility] Comment on above: Performed By: #### 2 [id number], 5673083, 8436953, 76141001, 5960849, [id number] ####[facility] (DEFAULT)[address] [place] [address] Hematocrit (Bld) [Volume fraction] 43.5 % Normal 34.8-51.9 [facility] Comment on above: Performed By: #### 2 [id number], 5072156, 4641967, 03968827, 5110748, [id number] ####[facility] (DEFAULT)[address] [place] [address] Hemoglobin (Bld) [Mass/Vol] 14.3 g/dL Normal 11.8-17.7 [facility] Comment on above: Performed By: #### 2 [id number], 8888074, 6909703, 35627402, 9879376, [id number] ####[facility] (DEFAULT)[address] [place] [address] MCH (RBC) [Entitic mass] 30 pg Normal 24-34 [facility] Comment on above: Performed By: #### 2 [id number], 0430532, 8763969, 04976960, 6753852, [id number] ####[facility] (DEFAULT)[address] [place] [address] MCHC (RBC) [Mass/Vol] 33 g/dL Normal 26-37 [facility] Comment on above: Performed By: #### 2 [id number], 0004257, 0152773, 39865506, 9446572, [id number] ####[facility] (DEFAULT)[address] [place] [address] MCV (RBC) [Entitic vol] 93 fL Normal 81-100 [facility] Comment on above: Performed By: #### 2 [id number], 3594619, 2318416, 70017319, 8414831, [id number] ####[facility] (DEFAULT)[address] [place] [address] Platelet 185 x10 Normal 138-427 [facility] Comment on above: Performed By: #### 2 [id number], 9348257, 1423243, 87744618, 9599840, [id number] ####[facility] (DEFAULT)[address] [place] [address] Platelet mean volume (Bld) [Entitic vol] 7.9 fL Normal 6.3-10.2 [facility] Comment on above: Performed By: #### 2 [id number], 6487532, 8555045, 78203034, 7942866, [id number] ####[facility] (DEFAULT)[address] [place] [address] RBC 4.70 x10 Normal 3.70-5.30 [facility] Comment on above: Performed By: #### 2 [id number], 6912256, 0916512, 56157932, 4759922, [id number] ####[facility] (DEFAULT)[address] [place] [address] WBC 5.4 x10 Normal 3.5-10.5 [facility] Comment on above: Performed By: #### 2 [id number], 5702169, 2844351, 94407337, 2454850, [id number] ####[facility] (DEFAULT)[address] [place] [address] Man Diff? Auto Invalid Interpretation Code [facility] Comment on above: Performed By: #### 2 [id number], 5602059, 8013644, 70254270, 7833811, [id number] ####[facility] (DEFAULT)[address] [place] [address] CRPon 05-11-2024 CRP 1.6 mg/dL High <=0.5 [facility] Comment on above: Performed By: #### 2 [id number], 0210762, 7016362, 57067051, 3591491, [id number] ####[facility] (DEFAULT)[address] [place] [address] 25378 ED Clinical Summaryon 2023 ED Clinical Summary [facility] - Emergency Department [address] [place] [address] 201[address] ED Clinical Summary PERSON INFORMATION Name: SILVIO CROWELL Age: 58 Years Sex: MALE : 1965 MRN: Acct#: Visit Reason: Wound infection; WOUND CARE Arrival: 05/11/2024 14:45:07 Discharge: 05/11/2024 18:02:00 LOS: 000 03:17 Check In: 05/11/2024 14:45:07 Checkout:05/11/2024 18:02:00 Address: [address] [place] [address] PCP: Balwinder Miller MD PROVIDER INFORMATION Provider Role Assigned Unassigned Kimberly Jones MD ED Provider 05/11/2024 14:47:09 Pratibha Mejia MAT LINKER Nurse 05/11/2024 15:07:27 VITALS INFORMATION Vital Sign [...] With: Address: When: Balwinder Miller MD [address] [place] [address] Within 3 to 5 days DIAGNOSIS: 1:Chronic venous stasis; 2:Diabetic coma Patient Understands: Yes - Patient/family/caregi shalini verbalizes understanding of instructions given Comment: [facility] ED Clinical Summary [facility] ? Urgent Care [address] [place] [address] Clinical Summary PERSON INFORMATION Name: SILVIO CROWELL Age: 58 Years Sex: MALE : 1965 MRN: Acct#: Visit Reason: Skin problem; WOUND EVAL Arrival: 05/11/2024 14:13:36 Discharge: 05/11/2024 14:40:00 LOS: 000 00:27 Check In: 05/11/2024 14:13:36 Checkout: 05/11/2024 14:40:00 Address: [address] [place] [address] PCP: Balwinder Miller MD PROVIDER INFORMATION Provider Role Assigned Unassigned Ian Lynn ED PA 05/11/2024 14:18:35 Audelia Pool MAT LINKER Nurse 05/11/2024 14:30:10 VITALS INFORMATION Vital Sign [...] of right lower extremity Patient Understands: Comment: [facility] ED Patient Summaryon 024 ED Patient Summary [facility] - Emergency Department [address] [place] [address] PATIENT DISCHARGE INSTRUCTIONS Patient Information Name: SILVIO CROWELL Age: 58 Years Date of : 1965 Reason For Visit: Wound infection; WOUND CARE Arrival Time: 05/11/2024 14:45:07 Primary Care Physician: Balwinder Miller MD Attending Physician: Kimberly Jones MD Comment: Visit Diagnosis: Diagnoses This Visit Chronic venous stasis (I87.8) Diabetic coma (E11.69) Wound infection (680034789) The Pharmacy at [facility] is open Tuesday through Tuesday from 9A [...] alcohol and/or drug addiction problems; contact the [facility] 11/04 Crisis Hotline -text 4hope to [phone]. If you received any narcotics, sedation, or [...] documents With: Address: When: Balwinder Miller MD [address] [place] [address] Within 3 to 5 days Medication Information: The exam and treatment you received today in the [facility] Emergency Department were for an urgent problem and are not intended as complete care. It is important for you to follow up with a doctor, nurse practitioner, or physician?s assistant librarian for ongoing care. If your symptoms become [...] so we can reach you if necessary. [facility] Emergency Department has provided you with a complete list of medications post discharge. Please inform your primary care nurse/provider of your visit and for further instruction on these medications. Any specific questions regarding your chronic medications and dosages should be discussed with your primary care physician(s) and/or pharmacist. New Medications [facility] [id number], [address] [place], [place] [id number], [phone] cephalexin (cephalexin 500 mg oral capsule) 1 [...] air Measu (more content not included)... Normal [facility] ED Patient Summary [facility] ? Urgent Care [address] [place], [place] [id number] PATIENT DISCHARGE INSTRUCTIONS Patient Information Name: SILVIO CROWELL Age: 58 Years Date of : 1965 Reason For Visit: Skin problem; WOUND EVAL Arrival Time: 05/11/2024 14:13:36 Primary Care Physician: Balwinder Miller MD Attending Physician: Ian Lynn Comment: Patient Education Medication Information: The exam and treatment you received today in the [facility] Emergency Department were for an urgent problem and are not intended as complete care. It is important for you to follow up with a doctor, nurse practitioner, or physician?s assistant librarian for ongoing care. If your symptoms become [...] so we can reach you if necessary. [facility] Emergency Department has provided you with a complete list of medications post discharge. Please inform your primary care nurse/provider of your visit and for further instruction [...] with fat layer exposed. (T14.8XXA) Skin problem ([id number]) If you received any narcotics, sedation, or [...] during y (more content not included)... Normal [facility] Extra Greyon 05-11-2024 Tube Collected Yes Invalid Interpretation Code [facility] Comment on above: Performed By: #### 2 [id number], [id number], 4222501, 02716217, 9068676, [id number] ####[facility] (DEFAULT)[address] [place] [address] Sed Rateon 05-11-2024 Sed Rate 33 mm/hr High 0-15 [facility] Comment on above: Performed By: #### 2 [id number], 1649687, 4593378, 70912897, 1993353, [id number] ####[facility] (DEFAULT)[address] [place] [address] Urgent Care Recordon 024 Urgent Care Record [facility] ? Urgent Care [address] [place] [address] PATIENT DISCHARGE INSTRUCTIONS Patient Information Name: SILVIO [...] and treatment you received today in the [facility] were for an urgent problem and are not intended as complete care. It is important for you to follow up with a doctor, nurse practitioner, or physician?s assistant librarian for ongoing care. If your symptoms become [...] so we can reach you if necessary. [facility] has provided you with a complete list of medications post discharge. Please inform your primary care nurse/provider of your visit and for further instruction [...] strep) NO Flui (more content not included)... [facility] XR Tibia/Fibula 2 Views Rig nate 05-11-2024 XR Tibia/Fibula 2 Views Right [...] MD 05/11/24 5:00 pm Technologist: Edith MEYER [facility] Outside Recordson 04-13-2024 Outside Records [id number] [facility] Coding Summaryon 03-09-2024 Coding Summary HTMLBase 64 PzdtnijfBZd0vKm+PGhlY WQ+GY7TSDXcV22onDUttP 2hT4ZQKTpUOzunSLTXDUo XSlXjgrOoOF6sgFAeTWTk IC8+RJ4nKQYyMatczSAos 2W4oOU9Z26oel2kVRgtwC U4ZCXqRrAdfdyvq6rmrTa 6IDcuNmluOyBt XGAepR22EUE2pL22Hk64e BYldYRek9enlZs2BsMxLZ NuKCW8gDhjIRuuh7GsLMS yL27syIFmb5B7 UKXzwSkznXBfRmOnjPM8p D8jZKigfiijy8pczbhfUt p5gk89lJYhy6C7cEZ4P7B eynN4WPTxqOUp FelovODXlA8uwtzct2lcl xlqRzFqCFLxDCv7XTi8US AttIcvTlPvJU21ERC6YUQ npkFhN2OzWSPc dDrjOfX2o2M6Lh0CC5DVK txaS4ZONDWVKAvdlID+PC 15op53L7YsRddjVqs4CKV oPQK2iCH8oH2h QRViEDura4Y3vZW7P8Dep dGhpi4hf7zvKCApLSxsL1 2ewSGok3X5PKEoyDO5EVK dzKsbVoNdeS80 Oyc+OSTimBmgc1ZtYlits 8xaf2cylBp8NyrsTNEwrm SmfQqyQRT9z2SlSz9qZHQ cqGK4zPV9fK0z EkXvAbN0JIfcL303EsFhl KCdUiulL06tY1CcdRG+PH PrKdb1HWAprJjsKP4jV0M hZGRpbmctbGVm nQjiXY5zDULalcggJHVau M6eOYKrJ7i9JgLgXrG6KT yvG6RrZLWadvuwJy98cZ8 jUjEzXqL2APsa K3GyehN9NJXrePInZNdwI JM5A58ir3B5AELmLIYdPE B1xDP3jU8tdLmmynditGX mdDsgdmVydGlj DUkkYHgeI536ONKcxVauL kNvZGluZyBEYXRlOiAgMD YvMjEvMjAyNDwvdGQ+PHR mGLG2mPbyIVAg eMXuZYzfWr4fgYypnMmmB P9mXFIilwqfXCCmkP0bZD LetNGcbHxqFC4hTRAehch bg856JfYtOKP9 HGMvcPYcM8TyvL0dBcCzG DDrYQQaL1EgrWAjOEayP1 36RBznGyY3WOBgixHlB3Z sLWFsaWduOiB0 q2X6Kt4Zy7UofvuhE3Far AQkNvPcMxqcANc5W9FbHr wvdHI+ZS17UCPwUQ18ZCp 3XYG1zVxzRRsa WDYgG3WjyA3bOfJoZBMaT GRkOyc+PHRhYmxlIHdpZH RoPScxMDAlJyBzdHlsZT0 sZn5eOOBrNAIv kZzdbSWuPeAjx3fkMLBxQ NvzMA7ueFkbL4JnmIK2RN Lqp5h5Zh90H36kB9OshCI +JYLjcZK7oKS4 mW7yPvCpJpJ8GOfzN565A mTvcXEzTgxtx3acp8wyrF i4WoD2RFJfonSsrNocSRJ 9b6RfFt69H36c IHdpZHRoPSIxNSUiIHZhb Xaxck9kfQ6zAm9+PGNvbC H0dFO2nK7iKfPrChI9TUr nN734IyRjlIAy Jlkwy5rfc3dibIi9EaPlM NWhsfChpMrqMGN1d6HoKl 86J0UsbCpqt3JiIej6ub8 1jANuj9U1uFX3 B7MtAIEdnizrzDSokIktF M7pJKZsygbsVZTdcQ2rMW DxY2m5NnWoPhI6LJrpE0U ouaD8BDEbbVAq HTYkzWPRgK9agjmsx0igc ffbNlLxCZMrRVv6FTw8QS YnhKdpYzNdQGH5HnE0CRR 8rBYkbR6hfMge uvxcfP1oRyg+GGF0lVNgn VURKJ0cElhkjKZ+PHRkIH D6nZegSRxpNZYzkG8bQJN lO4e9MxPtFqZ7 RVlqA1XxdzJ5RUYabOSiS WLnvZLLdA4qqcvfv6hpnv xcMyLjUEOoVMa9PBq0WLA saWduOiBsZWZ0 KaZ0RER2vJIrmZ2zyXcgm rnmbE8zHcj+QmlydGggRG L4YRz2M4WbDtq3EOYexEp nJK7qsFEhURoc Qm1fjHuhbCrdUK9qNGLrq rnue028BdFpl5uzGHTjdI NdWNijMRF5H56rj8Y1CON vDOEeTTQ4cMG9 eY7opBbphglvuJSpbHrxv dWyfPxaQPzsQQraE306HH VgpZclDhKxBKp5H1WdHkw 3VDHpvIenQH9v sGHpSTklJf4wkYarvQyqV R0eXSIcgjpqb934LiUeg1 wwJSDeqRTlVYmcRRB4B20 qv5S5DFVoXXDg KXB7iMB2gA5nsYhzypdoe GVmdDsgdmVydGljYWwtYW hiY392PGRzfQylJhPobQg 0F9JyWmd0SCLq oZkdDW6nkSGhVSqnIf8jg LecvNktJK9yCBPjotvcq6 59BtGtb4gfXVNsgLJxTXk kFYA2K50hk4T3 DIUaSZMyHDM8hTI7iQ4jb GlnbjogbGVmdDsgdmVydG xrAOssWPdrJ312TPJdtZa nPlBhdGllbnQg FLimNUe4A6BcQzwlhRP+P X53TLSiNN05mGEqzXWtu2 msjEb8WlKjZKGrHZY0iTh sVGxhe6GiTMSn N97zhCUpc5N4UIZqtFqyz KTmYxFkgIC6jA0yUZwpdr nkl2uhnwxmSkoeg0leet9 1vS01L45zNOpb ZHRoPSIzMCUiIHZhbGlnb w2kbZ5aOk9+WOMztKK7vD H6gD3sLLXiHfP8DNpzE22 9InRvcCIvPjxj e5nki9mbeOv6KvG4FEDuu eLgfZdyBSU3y2VvZo99F0 9sIHdpZHRoPSIyMCUiIHZ wzPpytg4ztI0e Ii8+OFFmrNB9qJL4xA8pX yYtEyA0MNcyV079UdEkeV KwHcynA90lE1QrmTQ+PHR fHfs3TTRjrCis OH8neHIhZYvbPm4tJKW3X gMyYeJyDMmiH0DsZGRjlu glrzxxqBK3VQHjAHYldF3 6Gu2xkRqzJSSi qRYSzS1cxahez3sbjfjmV uNaCGAeIFi8CFt6NHVujR ccXkNgBNS4NfI4ADL0vBX uiE5hjZrainse eF1oO7EuHANcgmnpVc18q Z9iLfLeJmG7KXaiZys+U0 JQGWYKUjizTLJWZ9zeIDp CLE59Y3JnHds8 IVWuwOmkCH3haOCfILozF s2rzFeisOrkAX1cSFTagx rjJQPeoM9mOMIdrMKkoDz vBU2yHXFguazo c322KwRzGNP2WOXilGPgT 7HluN2dFoNxHXXaWFPiP4 YewDQcYYkmO733FCkbCiW 6JUUqerYaF1Ep XDIpkEdtNmE1g9E1Uv4yH f0zYL8jDGU4ZJ76NQ32wV Xnx4K7gAO6F7GcUOQwxxk jjjgqzCH9LWVg MNCasG55kXSoJAezCq2ng 4E0c422UKVsWOKtbY52Dp 6cjXezQRDvnTDXbG7vshp od3faiwxtZgCr GLJoJCs4LEl2SSMfuFjnA uVjLRV3KfK8LVH9wQKziV 5rwMyaqlshvG4kVlu+NTk mLJTvzzI7U8Jm Xao0FPWzcGfwZN1blLAzQ HlyTu0mkPlvuXndNZ6vMF VroqqlZFBmlT3mJYLvaMG qwEhiCM7qSOQy kuqjx272TsLcZLG1MDXyk UBzG2UygG7dOyAkQKNzND KjS2RgeYOoHOqlB517DSm pXrR0LAPnmwUk J6XcAMNepEpqMgX7l0M4B r3DSJnLNH08ZL79lHIix8 T8nAU4Y2NhZUUuaejinho gnQI2EFHxXNFm hR56sHGgGKiwTu8og9J5f 341RAObNFUzyF56Sx7giE qsAKMnzXLByN4rmqysd9c vcjogIzAwMDAw AIl2CJi9BBYtxPzjVwZrH AO6DaQ1JLI4bHNocR2cuE zcbadkdZ4vFba+D8N3B2O kPjwvdHI+PC90 KNAoUZ52uUJzdYAuj7rah Ye8PnAqUAJqWQV6vMjwOI wex2PhSJEnI03mkGMhb6H 6IGNvbGxhcHNl WtMchVK2sW1gWTrycbliw 6oahqxkSmgvh7ufwc04pA 41X86yJQduBDSqBBIiVWD mWLRtuKrnhc9r qH6gYz7+YYNtbCR0oAW1t O5wFiWvFrG1HDrtX876Rv BwoBZrAquko8ray6houQt 9IjIwJSIgdmFs qPtvOJK3i6CwPn20C03jC HdpZHRoPSIyMCUiIHZhbG qkkx0iwV2kHx1+XC3yt0y cuu34pN49cOQ+ GANnLSS9qGknRUuwZOIvd V8eWOvwNhH4WGVgOzArcZ 86dPBfORyxKm0pqDtbcJp tXD4rCVHgsxai o413AmNow7nkHAWekXOdI CoeCXB0S38ny3G3RNCqWG CwZDF9wBP5rH7jyGrhlff gbGVmdDsgdmVy lQsgWOuxINylF766DLXpk IzmJcUxjDKhP4gftpBSEF 1lOjwvdGQ+DZEvGWT2gCh kGLqaFXWupV6s GXWfU8n5AkIiWxS1TUcwI 5AhaeP1KBGzuFNcZJUyqK JNsO4mxfjmm5kwhdpyGjB sLUOqCAz7KTe6 YBTonEklWfLwBKL1NiB4P JW5fULpkQ6zfZzgonkzgP 9wOyc+RklOOjwvdGQ+PHR xKQE4ySahSBwt KXVbhT9eKDQcW6p0VpVvS qU7TShsF0FbpkG6KJBurH UyGGDujHESqJ9nwwvtw8n vcjogIzAwMDAw TLu0SGt0AMYsxOvaKlWlH SI1JqJ6XVS5hAHmcX6cqH qudxggmM0yRcm+TVJOOjw vdGQ+PHRkIHN0 nWhoPXuoZFYuqM6xDQQeD 3e9GgBqCvT1ORvqA5Osdv Y8EFSwhFOcHKNbyDRMuB5 joppyh2sqwcfq EhNiXKLlIMx0QIi4BQKdm NtkYrJpTAH6YxU5UBT5mB NntW3ksNoiokttrP3gHmf +MHD7CNR8RT72 SQ48U9QzWhtrnOXxrCL+P HRhYmxlIHdpZHRoPScxMD VoQyVnmEhkKV8yEy9vYHT yLWNvbGxhcHNl OiB (more content not included)... [facility] Office/Clinic Noteon 024 Office/Clinic Note Patient: [...] 135.620 kg Body Mass Index 39.63 kg/m2 [place] Body Weight Calculated 79.52 kg BSA Measured [...] open area.. Impression and Plan Diagnosis Diabetes (MTC58-FT E11.9). Plan: Will resend his Farxiga and glimepiride to the pharmacy to get him back on medication. Will have follow-up in 3 months we will recheck his A1c at that time. Also discussed with him ab (more content not included)... Normal [facility] Creatinine W/GFR Point of Ca reon 11-21-2020 Creatinine [Mass/Vol] 1.81 mg/dL High 0.51 - 1.19 mg/dL [employer] Phone: GFR Non- 39 mL/min Low >60 [employer] Phone: GFR/1.73 sq M predicted among non-blacks MDRD (S/P/Bld) [Vol rate/Area] 47 mL/min/{1.73_m2} Low >60 [employer] Phone: GFR/1.73 sq M predicted among non-blacks MDRD (S/P/Bld) [Vol rate/Area] [employer] Phone: Comment on above: Average GFR for 50-5 9 years old: 93 mL/min/1.73sq m Chronic Kidney Disease: <60 mL/min/1.73sq m Kidney failure: <15 mL/min/1.73sq m eGFR calculated using average adult body mass. Additional eGFR calculator available at: http://www.[employer].bitHound/multiple_crcl_2012.htm Interpretation and review of laboratory results Abnormal [employer] Phone: MRI BRAIN W WO CONTRASTon MRI [...] Octavio Inman MD 11/21/20 Final result Normal [facility] Minimal chronic microvascular disease without acute intracranial abnormality. No abnormal postcontrast enhancement. [employer] Phone: EXAMINATION: MRI OF THE BRAIN WITHOUT [...] The soft tissues demonstrate no acute abnormality. [employer] Work Phone: Don, Mhpn Incoming Radiant Results From [employer] - 11/21/2020 12:08 PM EST EXAMINATION: MRI [...] acute intracranial abnormality. No abnormal postcontrast enhancement. [employer] Phone: Vital Signs Date Time Vital Sign Value Performing Clinician Pritesh rendon 11-21-2020 11:35-0500 Pulse (Heart Rate) 75 /min [employer] Phone: 11-21-2020 11:35-0500 Pulse Oximetry 95 % [employer] Phone: Encounters Encounter Date Encounter Type Care Provider Facility Start: 10-16-2024 End: 10-16-2024 ambulatory Jose Guadalupe Paul Facility:[facility] Start: 10-02-2024 End: 10-02-2024 ambulatory Jose Guadalupe [facility] Facility:[facility] Start: 09-25-2024 End: 09-25-2024 ambulatory Jose Guadalupe Paul Facility:[facility] Start: 09-06-2024 End: 09-06-2024 ambulatory Jose Guadalupe Paul Facility:[facility] Start: 08-22-2024 End: 08-22-2024 ambulatory Jose Guadalupe Paul Facility:[facility] Start: 08-14-2024 End: 08-14-2024 ambulatory Jose Guadalupe Paul Facility:[facility] Start: 07-27-2024 End: 07-27-2024 ambulatory Morgan R Camelia Facility:[facility] Start: 07-26-2024 ambulatory Jose Guadalupe Paul Facility: [facility] Start: 07-20-2024 End: 07-20-2024 ambulatory Morgan R Dolce Facility:[facility] Start: 07-09-2024 End: 07-09-2024 ambulatory Morgan R Dolce Facility:[facility] Start: 06-29-2024 End: 06-29-2024 ambulatory Morgan R Dolce Facility:[facility] Start: 06-19-2024 ambulatory Dominick Chavira Facility :[facility] Start: 06-07-2024 End: 06-07-2024 ambulatory Balwinder Gauthier Paul Facility:[facility] Start: 06-07-2024 End: 06-07-2024 ambulatory Balwinder Miller Facility:[facility] Start: 06-04-2024 ambulatory Morgan Denise Facility :[facility] Start: 05-31-2024 End: 05-31-2024 ambulatory Dominick Chavira Facility:[facility] Start: 05-25-2024 ambulatory Morgan Denise Facility :[facility] Start: 05-17-2024 End: 05-17-2024 ambulatory Dominick Chavira Facility:[facility] Start: 05-11-2024 End: 05-11-2024 Emergency department patient visit Kimberly Jones Facility:[facility] Start: 05-11-2024 End: 05-11-2024 ambulatory Ian WELLS Facility:[facility] Start: 02-08-2024 End: 02-08-2024 ambulatory Jose Guadalupe Paul Facility: [facility] Start: 01-02-2024 End: 01-02-2024 ambulatory Jose Guadalupe Paul Facility: [facility] Start: 11-21-2020 End: 11-21-2020 Subsequent hospital visit by physician Yeimi Castro Rn [facility] Special Procedures Start: 11-21-2020 End: 11-24-2020 Patient encounter procedure GRETA GONZALEZ [facility] Start: 11-21-2020 End: 11-23-2020 Subsequent hospital visit by physician Yeimi Mri Rm 1 (1.5t) [facility] MRI Comment on above: Tremor Start: 04-15-2018 End: 04-16-2018 Patient encounter RORY ZEPEDA [facility] Procedures Date Procedure Procedure Detail Performing Clinician Start: 11-21-2020 Mri brain brain stem w/o w/contrast material Greta Gonzalez Work Phone: Start: 11-21-2020 CREATININE W/GFR POI NT OF CARE Greta Gonzalez Work Phone: Start: 04-15-2018 Echo tthrc r-t 2d w/wom-mode compl spec&colr d RORY ZEPEDA Start: 04-15-2018 ECHO COMPL W DOP COL OR FLOW RORY ZEPEDA Plan of Treatment Date Care Activity Detail Author Start: 11-21-2021 Creatinine measurement Creatinine monitoring [employer] Phone: Start: 05-20-2020 Influenza vaccination Flu vaccine (#1) [employer] Phone: Start: 01-19-2020 Potassium monitoring Potassium monitoring [employer] Phone: Start: 03-11-2019 Annual Wellness Visit (AWV) Annual Wellness Visit (AWV) [employer] Phone: Start: 12-26-2018 Lipid panel Lipid screen [employer] Phone: Start: 11-13-2018 HbA1c (Bld) [Mass fraction] A1C test (Diabetic or Prediabetic) [employer] Phone: Start: 11-13-2018 TSH Qn TSH testing [employer] Phone: Start: 2014 Screening for malignant neoplasm of colon Colon cancer screen colonoscopy [employer] Phone: Start: 2014 Shingles Vaccine (1 of 2) Shingles Vaccine (1 of 2) [employer] Phone: Start: 1983 DTaP/Tdap/Td vaccine (1 - Tdap) DTaP/Tdap/Td vaccine (1 - Tdap) [employer] Phone: Start: 1983 Hepatitis B vaccine (1 of 3 - Risk 3-dose series) Hepatitis B vaccine (1 of 3 - Risk 3-dose series) [employer] Phone: Start: 1982 Diabetic microalbuminuria test Diabetic microalbuminuria test [employer] Phone: Start: 1979 HIV screening HIV screen [employer] Phone: Start: 1974 Diabetic foot examination Diabetic foot exam [employer] Phone: Start: 1974 Diabetic retinal exam Diabetic retinal exam [employer] Phone: Start: 1970 Pneumococcal 0-64 years Vaccine (1 of 1 - PPSV23) Pneumococcal 0-64 years Vaccine (1 of 1 - PPSV23) [employer] Phone: Start: 1964 Hepatitis C screening Hepatitis C screen [employer] Phone: Payers Date Payer Category Payer Medicare [id number] 2021 Private Health Insurance [id number] 2017 Private Health Insurance [id number] 2014 Medicare [id number] 1964 Unknown [id number] 2.16.8 40.1.454396.3.579.2.175 1964 Unknown [id number] 2.16.8 40.1.573162.3.579.2.8 1964 Unknown [id number] 2.16.8 40.1.664034.3.579.2.8 1964 Unknown [id number] 2.16.8 40.1.421552.3.579.2.8 1964 Unknown [id number] 2.16.8 40.1.121585.3.579.2.8 1964 Unknown [id number] 2.16.8 40.1.164809.3.579.2.718 1964 Unknown [id number] 2.16.8 40.1.613530.3.579.2.8 1964 Unknown [id number] 2.16.8 40.1.259001.3.579.2.8 1964 Unknown [id number] 2.16.8 40.1.892923.3.579.2.8 1964 Unknown [id number] 2.16.8 40.1.421411.3.579.2.8 1964 Unknown [id number] 2.16.8 40.1.943840.3.579.2.8 1964 Unknown [id number] 2.16.8 40.1.486639.3.579.2.8 1964 Unknown [id number] 2.16.8 40.1.585598.3.579.2. 1964 Unknown [id number] 2.16.8 40.1.735705.3.579.2.8 1964 Unknown [id number] 2.16.8 40.1.623030.3.579.2. 1964 Unknown [id number] 2.16.8 40.1.476401.3.579.2. 1964 Unknown [id number] 2.16.8 40.1.160293.3.579.2. 1964 Unknown [id number] 2.16.8 40.1.565322.3.579.2. 1964 Unknown [id number] 2.16.8 40.1.890092.3.579.2. 1964 Unknown [id number] 2.16.8 40.1.202474.3.579.2. 1964 Unknown [id number] 2.16.8 40.1.702555.3.579.2. 1964 Unknown [id number] 2.16.8 40.1.695843.3.579.2. 1964 Unknown [id number] 2.16.8 40.1.687309.3.579.2. 1964 Unknown [id number] 2.16.8 40.1.451233.3.579.2 Social History Date Type Detail Facility Start: 11-19-2020 Tobacco smoking stat [facility] Former smoker [employer] Phone: Start: 11-19-2020 Tobacco use and exposure Never used [employer] Phone: Start: 11-19-2020 Alcohol intake Current non-dr inker machine of alcohol (finding) [employer] Phone: Sex Assigned At Not on file [facility] Work Phone: Medical Equipment Procedure Code Equipment Code Equipment Origin al Text Equipment Identifier Dates Use three times a day [id number] Start: 11-22-2017 Medication management note 09-24-2024 Note Date & Type Note Facility 09-24-2024 Note - From: Yas Lomax LPN To: Paul Jones ([facility]_DC); Sent: 09/24/2024 13:25:41 EST Subject: PA Status Caller Name: SILVIO CROWELL; Caller Number: H MICONAZOLE NITRATE was denied by insurance, not covered by plan. Prefers [facility] Medication management note 09-20-2024 Note Date & Type Note Facility 09-20-2024 Note Patient requested re fill of Miconazole cream . [facility] [Electronically Signed on: 09/20/2024 14:21 EST] Hermila Mcclelland [Verified on: 09/20/2024 14:21 EST] Hermila Mcclelland [facility] Medication management note 09-20-2024 Note Date & Type Note Facility 09-20-2024 Note Entered by Hermila Mcclelland on September 20, 2024 12:20:35 EST From: Hermila Mcclelland To: [facility] [id number] Sent: 09/20/2024 12:20:35 EST Subject: Medication Management Approved with modifications: cyclobenzaprine (CYCLOBENZAPRINE 10 MG TABLET) TAKE 1 TABLET BY MOUTH 3 TIMES A DAY NEEDED FOR SPASM Qty: 30 tab(s) Days Supply: 10 Refills: 0 Substitutions Allowed Route To Pharmacy - [facility] [id number] Signed by Hermila Mcclelland From: [facility] [id number] To: Balwinder Miller MD Sent: September 19, 2024 2:50:37 PM RAMP SUPERVISOR Subject: Medication Management Due: September 20, 2024 12:18:11 AM RAMP SUPERVISOR On Hold Pending Signature Drug: cyclobenzaprine (cyclobenzaprine 10 mg oral tablet), TAKE 1 TABLET BY MOUTH 3 TIMES A DAY NEEDED FOR SPASM Quantity: 30 tab(s) Days Supply: 0 Refills: 0 Substitutions Allowed Notes from Pharmacy: Dispensed Drug: cyclobenzaprine (cyclobenzaprine 10 mg oral tablet), TAKE 1 TABLET BY MOUTH 3 TIMES A DAY NEEDED FOR SPASM Quantity: 30 tab(s) Days Supply: 10 Refills: 0 Substitutions Allowed Notes from Pharmacy: [facility] Clinical Note 05-11-2024 Note Date & [...] reduce swelling in your legs. ? Take [id number] and prescription medicines only as told by [...] need. This informat (more content not included)... 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 ACP-Advance Directive ACP-Power of Submersible Pilot Latest Code Status on File Code Status Date Activated Date Inactivated Comments Full Code 01/18/2019 9:29 PM 01/19/2019 4:12 PM Full Code 01/18/2019 3:08 PM 01/18/2019 9:29 PM Full Code 09/20/2018 10:02 AM 09/21/2018 2:37 AM Full Code 12/26/2017 10:02 PM 12/27/2017 4:44 PM Full Code 12/26/2017 11:10 AM 12/26/2017 9:52 PM Documents on File Type Date Recorded 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 Was in MRI before designer writer was present. [employer] rep has already [...] section and content) DATE CREATED AUTHOR 04/16/2018 [facility] DATE CREATED AUTHOR AUTHOR'S ORGANIZ ATION 11/24/2020 [facility] DATE CREATED AUTHOR AUTHOR'S ORGANIZ ATION 10/23/2024 [facility] l Reason for Visit (unrecogniz ed section and content) Status Reason Specialty Diagnoses / Procedures Referred By Contact Referred To Contact Closed Radiology Diagnoses Tremor Procedures MRI BRAIN W WO CONTRAST Greta Gonzalez, DO [address] [place] [address] FOR RECORDS PERTAINING TO PATIENTS WHO ARE [...] BE BASED ON THE PRIMARY CLINICAL RECORDS. [facility] [employer] [facility]. provides no warranty or guarantee of the accuracy or completeness of information in this document.
--- NOTE | 2024-10-23 13:58 | VEINCLINIC_ITS ---
Varicose Veins Patient in this day for follow up ultrasound post EVLT of left SSV Jone Willson MD personally performed the services described in this documentation, as scribed by Samira Mcguire RVT, RDMS in my presence and it is both accurate and complete. Anamika, Samira Mcguire RVT, RDMS, am scribing for, and in the presence of, Dr. Jone Vallejo and in the presence of the patient. Review of Systems ROS Narrative I, Jone Vallejo MD personally performed the services described in this documentation, as scribed by Samira Mcguire RVT, RDMS in my presence and it i s both accurate and complete. I, Samira Mcguire RVT, RDMS, am scribing for, and in the presence of, Dr. Jone Vallejo and in the presence of the patient. Status of ROS 10 or more systems reviewed and unremark able except as noted in history and below Cardiovascular Reports: edema Integumentary/Breast Reports: itching, redness, skin pain, skin tenderness, skin swelling, new lesion, changing lesion, non-healing lesion and changes in skin color Neurological Reports: numbness in extremities and weakness in extremities PFSH [facility] Medical History (Updated 08/28/24 @ 14:15 by Myron Mina) Superficial thrombophlebitis of left leg ?I80.02 - Phlebitis and thrombophlebitis of superficial vessels of left lower extremity (ICD-10) Phlebitis of superficial vein of right lower extremity ?I80.01 - Phlebitis and thrombophlebitis of superficial vessels of right lower extremity (ICD-10) Phlebitis and thrombophlebitis of superficial vessels of right lower extremity ?I80.01 - Phlebitis and thrombophlebitis of superficial vessels of right lower extremity (ICD-10) Hernia ?K46.9 - Unspecified abdominal hernia without obstruction or gangrene (ICD- 10) Heart attack ?I21.9 - Acute myocardial infarction, unspecified (ICD-10) Bilateral leg edema ?R60.0 - Localized edema (ICD-10) Pain due to varicose veins of both lower extremities ?I83.813 - Varicose veins of bilateral lower extremities with pain (ICD-10) COPD (chronic obstructive pulmonary disease) ?J44.9 - Chronic obstructive pulmonary disease, unspecified (ICD-10) Advanced cardiac disease ?I51.9 - Heart disease, unspecified (ICD-10) CHF (congestive heart failure) ?I50.9 - Heart failure, unspecified (ICD-10) Ulcerated leg varices ?I83.009 - Varicose veins of unspecified lower extremity with ulcer of unspecified site (ICD-10) ?L97.909 - Non-pressure chronic ulcer of unspecified part of unspecified lower leg with unspecified severity (ICD-10) Neuropathy ?G62.9 - Polyneuropathy, unspecified (ICD-10) Diabetes ?E11.9 - Type 2 diabetes mellitus without complications (ICD-10) Surgical History (Updated 10/10/24 @ 13:21 by Myron Mina) Status post laser ablation of incompetent vein ?Z98.890 - Other specified postprocedural states (ICD-10) Status post laser ablation of incompetent vein ?Z98.890 - Other specified postprocedural states (ICD-10) Status post laser ablation of incompetent vein ?Z98.890 - Other specified postprocedural states (ICD-10) Status post laser ablation of incompetent vein ?Z98.890 - Other specified postprocedural states (ICD-10) H/O gastric sleeve ?Z90.3 - Acquired absence of stomach [part of] (ICD-10) H/O hernia repair ?Z98.890 - Other specified postprocedural states (ICD-10) ?Z87.19 - Personal history of other diseases of the digestive system (ICD-10) Family History (Updated 07/02/24 @ 10:43 by Myron Mina) Other Family history of cancer Heart disease Hypothyroid Social History (Updated 07/03/24 @ 13:38 by Myorn Mina) Within the past year, how often did you have a drink containing alcohol: monthly or less Smoking status: Former smoker Non-prescribed substance use: denies use Meds Home Medications and Allergies Home Medications ?Medication ?Instructions ?Recorded ?Confirmed ?Type apixaban 5 mg tablet (Eliquis) 5 mg PO Q12H 07/03/24 07/03/24 History budesonide-formoterol HFA 80 1 inh inhalation BID 07/03/24 07/03/24 History mcg-4.5 mcg/actuation aerosol inhaler (Symbicort) dapagliflozin propanediol 10 mg 10 mg PO DAILY 07/03/24 07/03/24 History tablet (Farxiga) furosemide 20 mg tablet 20 mg PO DAILY 07/03/24 07/03/24 History glimepiride 4 mg tablet 4 mg PO BID 07/03/24 07/03/24 History metoprolol tartrate 25 mg tablet 25 mg PO Q12H 07/03/24 07/03/24 History ranolazine 1,000 mg 1,000 mg PO BID 07/03/24 07/03/24 History tablet,extended release,12 hr Allergies Allergy/AdvReac Type Severity Reaction Status Date / Time hydromorphone (From Dilaudid) Allergy Intermediate Difficulty Verified 07/03/24 15:09 Breathing Exam Narrative Exam Narrative: IJone MD personally performed the services described in this documentation, as scribed by Samira Mcguire RVT, RDMS in my presence and it is both accurate and complete. Samira Willson RVT, RDMS, am scribing for, and in the presence of, Dr. Jone Vallejo and in the presence of the patient. Constitutional Documenting provider has reviewed patient's vital signs: yes Common normals: oriented x3 Nutritional appearance: overweight Cardio Peripheral pulses: posterior tibial pulses present and dorsalis pedis pulses present Extremity Common normals: normal capillary refill General: calf tenderness and edema Right lower extremity: lower leg Right lower leg: inspection and palpation Left lower extremity: lower leg Left lower leg: inspection and palpation Neuro Common normals: oriented x3 Results Imaging Venous US: Radiologist's impression: The ultrasound demonstrates Heat induced thrombus visualized arising at distal thigh SSV and continues through distal calf. Assessment and Plan Assessment and Plan (1) Superficial thrombophlebitis of left leg:
--- NOTE | 2024-10-23 13:59 | W.VEIN ---
Discharge Plan Discharge Disposition: Home, Self-Care Discharge Medications: No Action ranolazine 1,000 mg tablet extended release 12 hr 1,000 mg PO BID Eliquis 5 mg tablet 5 mg PO Q12H dapagliflozin propanediol [Farxiga] 10 mg tablet 10 mg PO DAILY metoprolol tartrate 25 mg tablet 25 mg PO Q12H glimepiride 4 mg tablet 4 mg PO BID furosemide 20 mg tablet 20 mg PO DAILY budesonide-formoterol [Symbicort] 80-4.5 mcg/actuation HFA aerosol inhaler 1 inh inhalation BID Follow Up Appointments: The patient plans to continue treatment with Dr. Vallejo and Dr. Robbins Print Language: Burkinan Discharge Date/Time: 10/23/24 13:59
== END 2024-10-23 13:59 | disposition home or self-care (01) ==
PROVIDERS: PCP Radiology Diagnostic Radiology; Visit Provider Radiology Diagnostic Radiology
DX: I80.02 Phlebitis and thrombophlebitis of superficial vessels of left lower extremity (principal)
CPT/HCPCS: 93971; G0463